=== PATIENT | female | born 1970 | race African-American/Black ===

== ENCOUNTER → 2016-07-26 | Outpatient (CLI) | payer OTHER ==
[2016-07-08 10:14] VITALS: BP 146/92
[~2016-07-26] MED LIST: ALBU2.5V13 IH; AMLO10TA4 PO; ARIP5TAB6 PO; ASPI-482 PO; AZIT1PAC PO; Albuterol Sulfate NEB; BENZ100C PO; BUDE10.2 IH; CEFP200T PO; CETI10TA22 PO; CYCL5TAB PO; DOCU-27 PO; Doxycycline Hyclate PO; ESTR1.25 PO; FERR-26 PO; FLUC100T4 PO; FLUT1DIS3 INH; FLUT9.9S NS; HYDR-2762 PO; HYDR-2869 PO; HYDR12.553 PO; Hydralazine Hcl PO; IBUP-1060 PO; INSU100I13 SQ; Ipratropium/Albuterol Sulfate NEB; LEVO500T38 PO; LISI20TA PO; LORA10TA3 PO; METF500T PO; METF500T4 PO; MULT-208 PO; OMEP20TA PO; OXYC-323 PO; POTA20TA4 PO; PRED-220 PO; PRED20TA PO; PRED50TA PO; PROAIR HFA8.5 GM INH; PROAIR RESPICL90 MCG IH; SIMV40TA3 PO; VALS40TA2 PO
--- NOTE | 2016-07-26 13:59 | RAD ---
DATE: 07/26/2016. EXAM: DIGITAL SCREEN BILAT W/CAD HISTORY: Baseline. COMPARISON: None This study was interpreted with the benefit of Computerized Aided Detection (CAD). FINDINGS: Moderate fibroglandular tissue is noted bilaterally. No dominant mass or malignant appearing microcalcifications are seen. The axillae are unremarkable. There are benign calcifications bilaterally. IMPRESSION: No mammographic features suspicious for malignancy. BI-RADS CATEGORY: 2 BENIGN FINDING(S) RECOMMENDED FOLLOW-UP: 12M 12 MONTH FOLLOW-UP PQRS compliance statement: Patient information was entered into a reminder system with a target due date for the next mammogram. Mammography is a sensitive method for finding small breast cancers, but it does not detect them all and is not a substitute for careful clinical examination. A negative mammogram does not negate a clinically suspicious finding and should not result in delay in biopsying a clinically suspicious abnormality. "Our facility is accredited by the [employer] Mammography Program."
== END | disposition home or self-care (01) ==
LOC: MAMMO 12:40
PROVIDERS: ATTEND Family Medicine
DX: Z12.31 Encounter for screening mammogram for malignant neoplasm of breast (principal)
CPT/HCPCS: G0202; 77067

== ENCOUNTER 2016-10-06 10:36 | Emergency (ER) | payer OTHER ==
[~2016-10-06] VITALS: Ht 162.6 cm; Wt 72.6 kg
[~2016-10-06 10:36] MED LIST changes: -ALBU2.5V13 IH; +ALBU2.5V14 IH
[2016-10-06] MEDS ORDERED: IPRATRPIUM/ALBUTEROL 0.5/2.5MG 3 ML NEBU. NEB ONE (11:30)
--- NOTE | 2016-10-06 11:32 | PHYS DOC ---
Past Medical History Past Medical History: Asthma, COPD, Diabetes-Type II, Hypertension, Pneumonia, Other Additional Past Medical Histor: Lupus Past Surgical History: Hysterectomy, Other Additional Past Surgical Histo: chest tube for pneumonia Alcohol Use: Occasionally Drug Use: None Adult General Chief Complaint Chief Complaint: SHORTNESS OF BREATH HPI HPI Patient is a 46 year old female who presents with sore throat , wheezing, fevers chills for the last 3 days. She states she has a history of asthma and feels like she is wheezing somewhat. She also states that she discuss with her but she is able to eat and drink without any difficulty. She has felt that she had fevers and chills as well. Review of Systems Review of Systems Constitutional: Positive for fevers and chills Eyes: Denies change in visual acuity, redness, or eye pain [] HENT: Denies nasal congestion, positive for sore throat [] Respiratory: Denies any shortness of breath. Positive for wheezing Cardiovascular: No additional information not addressed in HPI [] GI: Denies abdominal pain, nausea, vomiting, bloody stools or diarrhea [] : Denies dysuria or hematuria [] Musculoskeletal: Denies back pain or joint pain [] Integument: Denies rash or skin lesions [] Neurologic: Denies headache, focal weakness or sensory changes [] Endocrine: Denies polyuria or polydipsia [] Current Medications Current Medications Current Medications Medications (Trade) Dose Ordered Sig/Nona Start Time Stop Time Status Last Admin Dose Admin Albuterol/ Ipratropium (Duoneb) 3 ml 1X ONCE 10/06/16 11:30 10/06/16 11:31 DC 10/06/16 11:57 3 ML Allergies Allergies Allergies Coded Allergies Type Severity Reaction Last Updated Verified lisinopril Allergy Intermediate COUGH 04/21/16 Yes I S O L A T I O N *CONTACT* Allergy Unknown 04/21/16 Yes Physical Exam Physical Exam Constitutional: Well developed, well nourished, no acute distress, non-toxic appearance. [] HENT: Normocephalic, atraumatic, bilateral external ears normal, oropharynx moist, no oral exudates, nose normal. [] Eyes: PERRLA, EOMI, conjunctiva normal, no discharge. [] Neck: Normal range of motion, no tenderness, supple, no stridor. [] Cardiovascular:Heart rate regular rhythm, no murmur [] Lungs & Thorax: Good air exchange bilaterally, mild expiratory wheezes Abdomen: Bowel sounds normal, soft, no tenderness, no masses, no pulsatile masses. [] Skin: Warm, dry, no erythema, no rash. [] Back: No tenderness, no CVA tenderness. [] Extremities: No tenderness, no cyanosis, no clubbing, ROM intact, no edema. [] Neurologic: Alert and oriented X 3, normal motor function, normal sensory function, no focal deficits noted. [] Psychologic: Affect normal, judgement normal, mood normal. [] Current Patient Data Vital Signs Vital Signs Date Time Temp Pulse Resp B/P Pulse Ox O2 Delivery O2 Flow Rate FiO2 10/06/16 12:06 104 193/116 100 Room Air 10/06/16 11:10 98.3 20 98.3 Lab Values Laboratory Tests Test 10/06/16 11:43 10/06/16 12:00 Influenza Type A Antigen Negative (NEGATIVE) Influenza Type B Antigen Negative (NEGATIVE) Group A Streptococcus Rapid Negative (NEGATIVE) White Blood Count 10.9x10^3/uL (4.0-11.0) Red Blood Count 4.51x10^6/uL (3.50-5.40) Hemoglobin 13.6g/dL (12.0-15.5) Hematocrit 40.4% (36.0-47.0) Mean Corpuscular Volume 90fL (79-100) Mean Corpuscular Hemoglobin 30pg (25-35) Mean Corpuscular Hemoglobin Concent 34g/dL (31-37) Red Cell Distribution Width 14.7% (11.5-14.5) H Platelet Count 540x10^3/uL (140-400) H Neutrophils (%) (Auto) 74% (31-73) H Lymphocytes (%) (Auto) 18% (24-48) L Monocytes (%) (Auto) 5% (0-9) Eosinophils (%) (Auto) 3% (0-3) Basophils (%) (Auto) 1% (0-3) Neutrophils # (Auto) 8.1x10^3uL (1.8-7.7) H Lymphocytes # (Auto) 2.0x10^3/uL (1.0-4.8) Monocytes # (Auto) 0.5x10^3/uL (0.0-1.1) Eosinophils # (Auto) 0.3x10^3/uL (0.0-0.7) Basophils # (Auto) 0.1x10^3/uL (0.0-0.2) Sodium Level 137mmol/L (136-145) Potassium Level 4.0mmol/L (3.5-5.1) Chloride Level 104mmol/L (98-107) Carbon Dioxide Level 23mmol/L (21-32) Anion Gap 10 (6-14) Blood Urea Nitrogen 9mg/dL (7-20) Creatinine 1.0mg/dL (0.6-1.0) Estimated GFR (Cockcroft-Gault) 72.5 BUN/Creatinine Ratio 9 (6-20) Glucose Level 98mg/dL (70-99) Calcium Level 9.8mg/dL (8.5-10.1) Total Bilirubin 0.5mg/dL (0.2-1.0) Aspartate Amino Transferase (AST) 34U/L (15-37) Alanine Aminotransferase (ALT) 29U/L (14-59) Alkaline Phosphatase 95U/L (46-116) Total Protein 8.3g/dL (6.4-8.2) H Albumin 3.2g/dL (3.4-5.0) L Albumin/Globulin Ratio 0.6 (1.0-1.7) L Laboratory Tests 10/06/16 12:00 Laboratory Tests 10/06/16 12:00 EKG EKG [] Radiology/Procedures Radiology/Procedures [facility] [address] [place], [place] [id number] IMAGING REPORT Signed PATIENT: CALDERON YAP ACCOUNT: [id number] : 1970 LOCATION: ER AGE: 46 SEX: F EXAM STATUS: REG ER ORD. PHYSICIAN: SUZAN MACK MD REASON: cough PROCEDURE: CHEST PA & LATERAL Chest, 2 views, 10/06/2016: History: Cough and cold symptoms Comparison is made to a study from 07/06/2016. The heart size and pulmonary vascularity are normal. No pulmonary infiltrates are seen. Unchanged blunting of the right lateral costophrenic angle is compatible with scarring. The posterior costophrenic angles are sharp without evidence of pleural fluid. Degenerative changes are present at both shoulders. IMPRESSION: No acute cardiopulmonary abnormality is detected. DICTATED and SIGNED BY: GARRETT CHOW MD DATE: 10/06/16 1149 CC: ALLIE MARES MD; SUZAN MACK MD ~ Impressions: Viral pharyngitis Course & Med Decision Making Course & Med Decision Making Pertinent Labs and Imaging studies reviewed. (See chart for details) Strep throat, influenza, chest x-ray and labs are nonacute. Patient being discharged home with return precautions. She is agreeable plan is in stable condition at this time. She can use Claritin or Myrna for sinus congestion. Dragon Disclaimer Dragon Disclaimer This electronic medical record was generated, in whole or in part, using a voice recognition dictation system. Departure Departure Impression: Primary Impression: Sore throat (viral) Disposition: 01 HOME, SELF-CARE Condition: STABLE Referrals: ALLIE MARES MD (PCP) Patient Instructions: Viral and Bacterial Pharyngitis, [id number] Additional Instructions: Chest x-ray, labs, influenza and strep throat all negative. Your being discharged home. You try [id number] Claritin or Myrna to help with your sinus congestion and sore throat. SUZAN MACK MD Oct 06, 2016 11:32
--- NOTE | 2016-10-06 11:52 | RAD ---
Chest, 2 views, 10/06/2016: History: Cough and cold symptoms Comparison is made to a study from 07/06/2016. The heart size and pulmonary vascularity are normal. No pulmonary infiltrates are seen. Unchanged blunting of the right lateral costophrenic angle is compatible with scarring. The posterior costophrenic angles are sharp without evidence of pleural fluid. Degenerative changes are present at both shoulders. IMPRESSION: No acute cardiopulmonary abnormality is detected.
[2016-10-06 12:12] LABS: BASO # 0.1 x10^3/uL (0.0-0.2); BASO % 1 % (0-3); EOS % 3 % (0-3); HEMATOCRIT 40.4 % (36.0-47.0); HEMOGLOBIN 13.6 g/dL (12.0-15.5); LYMPH % 18 % (24-48); MEAN CORPUSCULAR HEMOGLOBIN 30 pg (25-35); MEAN CORPUSCULAR HGB CONC 34 g/dL (31-37); MEAN CORPUSCULAR VOLUME 90 fL (79-100); MONO % 5 % (0-9); NEUT % 74 % (31-73); PLATELET COUNT 540 x10^3/uL (140-400); RED BLOOD COUNT 4.51 x10^6/uL (3.50-5.40); RED CELL DISTRIBUTION WIDTH 14.7 % (11.5-14.5); WHITE BLOOD COUNT 10.9 x10^3/uL (4.0-11.0)
[2016-10-06 12:13] LABS: NEGATIVE OBC STREP NEG; POSITIVE OBC STREP POS
[2016-10-06 12:27] LABS: CALCIUM 9.8 mg/dL (8.5-10.1); GFR 72.5
[2016-10-06 12:29] LABS: ALBUMIN 3.2 g/dL (3.4-5.0); ALBUMIN/GLOBULIN RATIO 0.6 (1.0-1.7); TOTAL BILIRUBIN 0.5 mg/dL (0.2-1.0); TOTAL PROTEIN 8.3 g/dL (6.4-8.2)
[2016-10-06 12:36] VITALS: BP 169/108
[2016-10-06 12:49] LABS: OBC FLU VALID
== END 2016-10-06 13:18 | disposition home or self-care (01) ==
LOC: ER 10:36
DX: J02.8 Acute pharyngitis due to other specified organisms (principal); B97.89 Other viral agents as the cause of diseases classified elsewhere; J45.909 Unspecified asthma, uncomplicated; J44.9 Chronic obstructive pulmonary disease, unspecified; E11.9 Type 2 diabetes mellitus without complications; I10 Essential (primary) hypertension; L93.0 Discoid lupus erythematosus; Z88.8 Allergy status to other drugs, medicaments and biological substances; Z91.041 Radiographic dye allergy status; Z87.01 Personal history of pneumonia (recurrent)
CPT/HCPCS: 36415; 71020; 80053; 85027; 87070; 87804; 87880; 94640; 99285; J7620

== ENCOUNTER → 2016-10-11 | Outpatient (CLI) | payer OTHER ==
[2016-10-06 12:36] VITALS: BP 169/108
--- NOTE | 2016-10-11 13:39 | RAD ---
CT scan of the head without contrast 10/11/2016 Clinical history: Intractable migraine headaches since 1989. Technique: Unenhanced, contiguous, 5 mm axial sections were obtained through the head. One or more of the following individualized dose reduction techniques were utilized for this study: 1. Automated exposure control. 2. Adjustment of the mA and/or kV according to patient size. 3. Use of iterative reconstruction technique. Findings: Comparison study is dated 07/14/2012. The ventricles and sulci are within normal limits in size and configuration. No area of abnormal attenuation is involving the brain parenchyma. No extra-axial fluid collection is seen. No skull fracture is noted. Impression: Negative study.
== END | disposition home or self-care (01) ==
LOC: CT 13:11
PROVIDERS: ATTEND Family Medicine
DX: G43.011 Migraine without aura, intractable, with status migrainosus (principal)
CPT/HCPCS: 70450

== ENCOUNTER 2016-11-23 08:58 | Emergency (ER) | payer OTHER ==
[~2016-11-23] VITALS: Ht 162.6 cm; Wt 76.2 kg
--- NOTE | 2016-11-23 09:43 | PHYS DOC ---
Past Medical History Past Medical History: Asthma, COPD, Diabetes-Type II, Hypertension, Pneumonia, Other Additional Past Medical Histor: Lupus Past Surgical History: Hysterectomy, Other Additional Past Surgical Histo: chest tube for pneumonia Alcohol Use: Occasionally Drug Use: None Adult General Chief Complaint Chief Complaint: COUGH HPI HPI Patient is a 46 year old female presents to the emergency department with a history of productive cough yellow in color for the last 2 weeks. She states she has had fevers on and off. Patient has HTN here in the ED she state she just had her BP medication changed. She denies taking other medication for the cough. She states she has also had back pain for the same length of time in which she has been using Ibuprofen 250 mg x 3 tablets without relief. Review of Systems Review of Systems Constitutional: Denies fever or chills [] Eyes: Denies change in visual acuity, redness, or eye pain [] HENT: Denies nasal congestion or sore throat [] Respiratory: cough denies shortness of breath [] Cardiovascular: No additional information not addressed in HPI [] GI: Denies abdominal pain, nausea, vomiting, bloody stools or diarrhea [] : Denies dysuria or hematuria [] Musculoskeletal: back pain denies joint pain [] Integument: Denies rash or skin lesions [] Neurologic: Denies headache, focal weakness or sensory changes [] Endocrine: Denies polyuria or polydipsia [] Allergies Allergies Allergies Coded Allergies Type Severity Reaction Last Updated Verified lisinopril Allergy Intermediate COUGH 04/21/16 Yes I S O L A T I O N *CONTACT* Allergy Unknown 04/21/16 Yes Physical Exam Physical Exam Constitutional: Well developed, well nourished, no acute distress, non-toxic appearance. [] HENT: Normocephalic, atraumatic, bilateral external ears normal, oropharynx moist, no oral exudates, nose normal. [] Eyes: PERRLA, EOMI, conjunctiva normal, no discharge. [] Neck: Normal range of motion, no tenderness, supple, no stridor. [] Cardiovascular:Heart rate regular rhythm, no murmur [] Lungs & Thorax: Bilateral breath sounds clear to auscultation [] Skin: Warm, dry, no erythema, no rash. [] Back: No tenderness, Extremities: No tenderness, no cyanosis, no clubbing, ROM intact, no edema. [] Neurologic: Alert and oriented X 3, normal motor function, normal sensory function, no focal deficits noted. [] Psychologic: Affect normal, judgement normal, mood normal. [] Current Patient Data Vital Signs Vital Signs Date Time Temp Pulse Resp B/P (MAP) Pulse Ox O2 Delivery O2 Flow Rate FiO2 11/23/16 09:13 97.7 89 18 187/104 (131) 99 Room Air 97.7 EKG EKG [] Radiology/Procedures Radiology/Procedures [][facility] [address] [place] [address] IMAGING REPORT Signed PATIENT: CALDERON YAP ACCOUNT: [id number] : 1970 LOCATION: ER AGE: 46 SEX: F EXAM STATUS: PRE ER ORD. PHYSICIAN: NATIVIDAD CARPENTER APRN REASON: cough, congestion, productive cough PROCEDURE: CHEST PA & LATERAL Indication productive cough for 2 weeks. PA and lateral views of the chest were obtained and are compared to an exam 10/06/2016. The heart, pulmonary vessels and mediastinum appear normal. The lungs are clear of acute infiltrates. There is no pleural fluid or pneumothorax. There are degenerative changes about both shoulders. IMPRESSION: No acute finding apparent in the chest DICTATED and SIGNED BY: JESSICA ARCE MD DATE: 11/23/16 0937 CC: ALLIE MARES MD; NATIVIDAD CARPENTER APRN ~ Course & Med Decision Making Course & Med Decision Making Pertinent Labs and Imaging studies reviewed. (See chart for details) CXR negative. Patient will be placed on Augmentin for URI. Patient was encouraged to use Ibuprofen for pain and discomfort with warm moist packs. Patient was encouraged to monitor BP and followup with PCP for blood pressure control. Patient denies chest pain, SOA or difficulty breathing, denies headache , blurred vision. Patient was provided with signs and symptoms to return to emergency department. Patient agrees with discharge instructions treatment regimen and followup recommendations. [] Dragon Disclaimer Dragon Disclaimer This electronic medical record was generated, in whole or in part, using a voice recognition dictation system. Departure Departure Impression: Primary Impression: URI (upper respiratory infection) Disposition: HOME, SELF-CARE Condition: STABLE Referrals: ALLIE MARES MD (PCP) Patient Instructions: Upper Respiratory Infection, Adult, [id number] Additional Instructions: Activity as tolerated Medication as prescribed Ibuprofen for pain and discomfort Warm moist packs to the back area Monitor your BP and followup with your primary care provider Followup with your primary care provider in 3-5 days Return to emergency department as needed for signs and symptoms that become worse. Scripts Amoxicillin/Potassium Clav (AUGMENTIN 875-125 TABLET) 1 Each Tablet 1 TAB PO BID, #20 TAB Prov: NATIVIDAD CARPENTER APRN 11/23/16 NATIVIDAD CARPENTER APRN November 23, 2016 09:43
[2016-11-23] MEDS ORDERED: AMOX1TAB61 PO (09:57)
[2016-11-23 10:00] VITALS: BP 173/105
== END 2016-11-23 10:15 | disposition home or self-care (01) ==
LOC: ER 08:58
DX: J06.9 Acute upper respiratory infection, unspecified (principal); M54.9 Dorsalgia, unspecified; J44.9 Chronic obstructive pulmonary disease, unspecified; E11.9 Type 2 diabetes mellitus without complications; I10 Essential (primary) hypertension; M32.9 Systemic lupus erythematosus, unspecified; Z87.01 Personal history of pneumonia (recurrent); Z90.710 Acquired absence of both cervix and uterus; Z88.8 Allergy status to other drugs, medicaments and biological substances; Z91.041 Radiographic dye allergy status
CPT/HCPCS: 71020; 99284-25

== ENCOUNTER 2017-01-09 15:05 | Observation (INO) | payer OTHER ==
[~2017-01-09] VITALS: Ht 162.6 cm; Wt 77.2 kg
[~2017-01-09 15:05] MED LIST changes: +AMOX1TAB61 PO; +ARIP5TAB13 PO; -ARIP5TAB6 PO; +DOCU-109 PO; -DOCU-27 PO; -LEVO500T38 PO; +LEVO500T59 PO; -OMEP20TA PO; +OMEP20TA8 PO
--- NOTE | 2017-01-09 15:26 | PHYS DOC ---
Past Medical History Past Medical History: Asthma, COPD, Diabetes-Type II, Hypertension, Pneumonia, Other Additional Past Medical Histor: Lupus Past Surgical History: Hysterectomy, Other Additional Past Surgical Histo: chest tube for pneumonia Smoking: Cigarettes Alcohol Use: Occasionally Drug Use: None Adult General Chief Complaint Chief Complaint: CHEST PAIN HPI HPI Patient is a 46 year old male who presents with 2 hour history of chest discomfort at rest and sharp in nature worse with breathing and coughing with a cough some slight wheezing; pain does not radiate to the neck or arm; nonexertional. No fever nausea vomiting diarrhea dysuria frequency or flank pain. Reports history of lupus, type 2 diabetes, and asthma. Smoking history. Not on steroids. Not on oxygen. Several years ago had a partial lung resection in the right lower lung secondary to complication of pneumonia with "drainage of fluid ". Review of Systems Review of Systems Constitutional: Denies fever or chills [] Eyes: Denies change in visual acuity, redness, or eye pain [] HENT: Denies nasal congestion or sore throat [] Respiratory: Denies cough or shortness of breath [] Cardiovascular: No additional information not addressed in HPI [] GI: Denies abdominal pain, nausea, vomiting, bloody stools or diarrhea [] : Denies dysuria or hematuria [] Musculoskeletal: Denies back pain or joint pain [] Integument: Denies rash or skin lesions [] Neurologic: Denies headache, focal weakness or sensory changes [] Endocrine: Denies polyuria or polydipsia [ All review systems are negative except as mentioned in the history present illness] Current Medications Current Medications Current Medications Medications (Trade) Dose Ordered Sig/Nona Start Time Stop Time Status Last Admin Dose Admin Albuterol Sulfate (Ventolin Neb Soln) 2.5 mg 1X ONCE 01/09/17 15:30 01/09/17 15:31 DC 01/09/17 15:29 2.5 MG Aspirin (Children'S Aspirin) 324 mg 1X ONCE 01/09/17 17:15 01/09/17 17:16 DC 01/09/17 17:20 324 MG Morphine Sulfate 4 mg PRN Q2HR PRN 01/09/17 17:30 01/10/17 17:29 UNV Nitroglycerin (Nitro-Bid Oint) 1 inch 1X ONCE 01/09/17 17:15 01/09/17 17:16 DC 01/09/17 17:21 1 INCH Nitroglycerin (Nitrostat) 0.4 mg PRN Q5MIN PRN 01/09/17 17:15 01/09/17 17:23 0.4 MG Ondansetron HCl (Zofran) 4 mg PRN Q8HRS PRN 01/09/17 17:30 01/10/17 17:29 UNV Allergies Allergies Allergies Coded Allergies Type Severity Reaction Last Updated Verified lisinopril Allergy Intermediate COUGH 04/21/16 Yes I S O L A T I O N *CONTACT* Allergy Unknown 04/21/16 Yes Physical Exam Physical Exam Constitutional: Well developed, well nourished, no acute distress, non-toxic appearance. [] HENT: Normocephalic, atraumatic, bilateral external ears normal, oropharynx moist, no oral exudates, nose normal. [] Eyes: PERRLA, EOMI, conjunctiva normal, no discharge. [] Neck: Normal range of motion, no tenderness, supple, no stridor. [] Cardiovascular:Heart rate regular rhythm, no murmur, gallops or rubs. [] Lungs & Thorax: Bilateral breath sounds equal with some faint wheezing no major distress [] Abdomen: Bowel sounds normal, soft, no tenderness, no masses, no pulsatile masses. [] Skin: Warm, dry, no erythema, no rash. [] Back: No tenderness, no CVA tenderness. Well-healed scar overlying the right lower lung posteriorly.[] Extremities: No tenderness, no cyanosis, no clubbing, ROM intact, no edema. [] Neurologic: Alert and oriented X 3, normal motor function, normal sensory function, no focal deficits noted. [] Psychologic: Affect normal, judgement normal, mood normal. [] Current Patient Data Vital Signs Vital Signs Date Time Temp Pulse Resp B/P (MAP) Pulse Ox O2 Delivery O2 Flow Rate FiO2 01/09/17 17:23 92 214/106 01/09/17 15:29 Room Air 01/09/17 15:19 98.9 18 97 98.9 Lab Values Laboratory Tests Test 01/09/17 16:15 White Blood Count 9.1 x10^3/uL (4.0-11.0) Red Blood Count 4.35 x10^6/uL (3.50-5.40) Hemoglobin 13.2 g/dL (12.0-15.5) Hematocrit 38.9 % (36.0-47.0) Mean Corpuscular Volume 90 fL (79-100) Mean Corpuscular Hemoglobin 31 pg (25-35) Mean Corpuscular Hemoglobin Concent 34 g/dL (31-37) Red Cell Distribution Width 14.2 % (11.5-14.5) Platelet Count 456 x10^3/uL (140-400) H Neutrophils (%) (Auto) 64 % (31-73) Lymphocytes (%) (Auto) 23 % (24-48) L Monocytes (%) (Auto) 7 % (0-9) Eosinophils (%) (Auto) 5 % (0-3) H Basophils (%) (Auto) 1 % (0-3) Neutrophils # (Auto) 5.9 x10^3uL (1.8-7.7) Lymphocytes # (Auto) 2.0 x10^3/uL (1.0-4.8) Monocytes # (Auto) 0.6 x10^3/uL (0.0-1.1) Eosinophils # (Auto) 0.4 x10^3/uL (0.0-0.7) Basophils # (Auto) 0.1 x10^3/uL (0.0-0.2) Sodium Level 143 mmol/L (136-145) Potassium Level 3.4 mmol/L (3.5-5.1) L Chloride Level 105 mmol/L (98-107) Carbon Dioxide Level 27 mmol/L (21-32) Anion Gap 11 (6-14) Blood Urea Nitrogen 10 mg/dL (7-20) Creatinine 1.0 mg/dL (0.6-1.0) Estimated GFR (Cockcroft-Gault) 72.5 BUN/Creatinine Ratio 10 (6-20) Glucose Level 94 mg/dL (70-99) Calcium Level 8.7 mg/dL (8.5-10.1) Total Bilirubin 0.3 mg/dL (0.2-1.0) Aspartate Amino Transferase (AST) 30 U/L (15-37) Alanine Aminotransferase (ALT) 29 U/L (14-59) Alkaline Phosphatase 81 U/L (46-116) Troponin I Quantitative < 0.017 ng/mL (0.000-0.055) Total Protein 8.2 g/dL (6.4-8.2) Albumin 3.6 g/dL (3.4-5.0) Albumin/Globulin Ratio 0.8 (1.0-1.7) L Laboratory Tests 01/09/17 16:15 Laboratory Tests 01/09/17 16:15 EKG EKG EKG normal sinus rhythm rate of 94 QTC normal no STEMI my interpretation. [] Radiology/Procedures Radiology/Procedures Chest x-ray [] Course & Med Decision Making Course & Med Decision Making Pertinent Labs and Imaging studies reviewed. (See chart for details) Seems like this is likely to be more pulmonary we will check a troponin CBC comp metabolic and EKG chest x-ray and give a breathing treatment and reevaluate. [EKG and labs and chest x-ray were unremarkable. Patient still having some left sided substernal chest discomfort was not improved with breathing treatment. I do not suspect pulmonary embolism or dissection at this time. Patient has a normal pulse rate, 90 sat, and no leg pain or swelling. Patient was given aspirin nitroglycerin. We will admit for serial EKGs and enzymes and set up for stress test. I discussed the case with Dr. Ferrer who is covering for Dr. Mares and accepts the admission for telemetry observation] Dragon Disclaimer Dragon Disclaimer This electronic medical record was generated, in whole or in part, using a voice recognition dictation system. Departure Departure Impression: Primary Impression: Chest pain Disposition: ADMITTED INPATIENT Admitting Physician: Richmond Ferrer Condition: STABLE Referrals: ALLEI MARES MD (PCP) EDILMA SOLIMAN MD Jan 09, 2017 15:26
[2017-01-09] MEDS ORDERED: ALBUTEROL SULFATE 2.5 MG/3 ML NEBU. NEB ONE (15:30)
--- NOTE | 2017-01-09 15:40 | RAD ---
Single view of the Chest 01/09/2017 5:18 PM Indication: cough chest pain Comparison: Chest radiograph November 23, 2016 Findings: There is blunting of right costophrenic angle which could represent scarring, trace effusion, or atelectasis. No pneumothorax is identified. Heart size is normal. No focal infiltrate is seen. Severe degenerative changes involving the bilateral shoulders are noted. Acute osseous changes not identified. Impression: 1.Blunting of the right costophrenic angle which may represent scarring or trace effusion, or atelectasis 2. Similar degenerative changes of the bilateral shoulders.
--- NOTE | 2017-01-09 15:49 | EKG ---
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
[2017-01-09 16:25] LABS: BASO # 0.1 x10^3/uL (0.0-0.2); BASO % 1 % (0-3); EOS % 5 % (0-3); HEMATOCRIT 38.9 % (36.0-47.0); HEMOGLOBIN 13.2 g/dL (12.0-15.5); LYMPH % 23 % (24-48); MEAN CORPUSCULAR HEMOGLOBIN 31 pg (25-35); MEAN CORPUSCULAR HGB CONC 34 g/dL (31-37); MEAN CORPUSCULAR VOLUME 90 fL (79-100); MONO % 7 % (0-9); NEUT % 64 % (31-73); PLATELET COUNT 456 x10^3/uL (140-400); RED BLOOD COUNT 4.35 x10^6/uL (3.50-5.40); RED CELL DISTRIBUTION WIDTH 14.2 % (11.5-14.5); WHITE BLOOD COUNT 9.1 x10^3/uL (4.0-11.0)
[2017-01-09 16:46] LABS: ALBUMIN 3.6 g/dL (3.4-5.0); ALBUMIN/GLOBULIN RATIO 0.8 (1.0-1.7); CALCIUM 8.7 mg/dL (8.5-10.1); GFR 72.5; POTASSIUM 3.4 mmol/L (3.5-5.1); TOTAL BILIRUBIN 0.3 mg/dL (0.2-1.0); TOTAL PROTEIN 8.2 g/dL (6.4-8.2)
[2017-01-09] MEDS ORDERED: NITROGLYCERIN OINT 1 GM PACKET. TP ONE (17:15)
[2017-01-09] MEDS ORDERED: ASPIRIN CHEWABLE 81 MG TABLET. PO ONE (17:15)
[2017-01-09] MEDS: NITROGLYCERIN SUBLINGUAL 0.4 MG BOTTLE OF 25. SL PRN ×3 (17:23→18:11)
[2017-01-09] MEDS ORDERED: MORPHINE SULFATE 4 MG/ML DISP.SYRIN. IV PRN (17:30)
[2017-01-09] MEDS ORDERED: ONDANSETRON PF 4 MG/2 ML VIAL. IV PRN (17:30)
[2017-01-09] MEDS ORDERED: IBUPROFEN 800 MG TABLET. PO PRN (21:30)
[2017-01-09] MEDS ORDERED: NON FORMULARY ITEM (Albuterol Sulfate (Proair Hfa Inhaler) 2 PUFF) INH PRN (21:30)
[2017-01-09] MEDS ORDERED: ARIPiprazole 5 MG TABLET PO PRN (21:30)
[2017-01-09] MEDS ORDERED: ALBUTEROL SULFATE 2.5 MG/3 ML NEBU. NEB PRN (21:45)
[2017-01-09] MEDS ORDERED: SIMVASTATIN 40 MG TABLET. PO SCH (22:00)
[2017-01-09] MEDS: CYCLOBENZAPRINE 10 MG TABLET. PO SCH (22:33)
[2017-01-09] MEDS: HYDROcodone/APAP 7.5/325MG 1 TAB TABLET PO PRN (22:34)
[2017-01-09 23:00] VITALS: BP 186/108
--- NOTE | 2017-01-10 01:35 | ACF ---
Admission Forms Criteria CARDIOLOGY GRG Clinical Indications for Admission to Inpatient Care ( Place 'X' for any and all applicable criteria): Hospital admission is needed for appropriate care of the patient because of ANY ONE of the following (1): [ ] I. Hemodynamic instability as indicated by ALL of the following (1)(2)(3) (4)(5) [ ]a) Vital signs or other findings not as expected for chronic patient condition or baseline [ ]b) Instability indicated by ANY ONE of the following: [ ]i) Hypotension [ ]ii) Symptomatic Tachycardia unresponsive to treatment ( e.g., analgesia, fluids, sedation as indicated) [ ]iii) Inadequate perfusion indicated by ANY ONE of the following: [ ] 1) Lactic acidosis (> 2 mmol/L) [ ] 2) New abnormal capillary refill (> 3 seconds) [ ] 3) Reduced urine output [ ] 4) New altered mental status [ ]iv) Orthostatic vital sign changes unresponsive to treatment (e.g., fluids) [ ]v) IV inotropic or vasopressor medication required to maintain adequate blood pressure or perfusion [ ] II. Severe heart failure as indicated by ANY ONE of the following(17)(18) [ ]a) Respiratory distress [ ]b) Hypotension [ ]c) Anasarca (refractory to outpatient therapy) [ ]d) Cardiac arrhythmias of immediate concern [ ]e) Myocardial ischemia [ ] III. Cardiac arrhythmias or findings of immediate concern indicated by ANY ONE of the following (19)(20): [ ] a) Heart rhythms that are inherently dangerous or unstable indicated by ANY ONE of the following (21)(22)(23): [ ] i) Resuscitated ventricular fibrillation or cardiac arrest [ ] ii) Ventricular escape rhythm [ ] iii) Sustained ventricular tachycardia (30 seconds or more of ventricular rhythm at greater than 100 beats per minute) [ ] iv) Nonsustained ventricular tachycardia and ANY ONE of the following: [ ] 1) Suspected cardiac ischemia as cause or consequence of ventricular tachycardia [ ] 2) In setting of acute myocarditis [ ] b) Unstable cardiac conduction defects indicated by ANY ONE of the following(23)(24)(25) [ ] i) Type II second-degree atrioventricular block [ ]ii) Third-degree atrioventricular block [ ]iii) New-onset left bundle branch block with suspected myocardial ischemia [ ]c) Any heart rhythm and ANY ONE of the following (21)(22)(26)(27) (28) [ ] i) Continuous long-term ECG monitoring needed (e.g., initiation of drug requiring monitoring for more than 24 hours) [ ] ii) Patient has automatic implanted cardioverter defibrillator that is repeatedly firing, malfunctioning, or in need of immediate adjustment of settings beyond the scope of ambulatory or observation care [ ]d) Heart rhythms of concern due to ANY ONE of the following: [ ] i) Hypotension [ ] ii) Respiratory distress [ ] iii) Association with other significant symptoms (e.g., bradycardia with syncope or ongoing dizziness, supraventricular tachycardia with chest pain (14)(15)(17) [ ] IV. Monitoring for cardiac contusion beyond the scope of observation care needed [A](30)(31)(32) [ ] V. Surgical or device complication (e.g., valve replacement complication , pacemaker dysfunction) (35)(41)(44)(45)(46) [ ] . Inpatient palliative care needed. [B](49) Also use Inpatient Palliative Care Criteria [ ] VII. Nonbacterial thrombotic (marantic) endocarditis (36)(43)(47)(48) [X] VIII. Cardiology condition, symptom, or finding for which emergency and observation care has failed or are not considered appropriate. [ ] IX. Acute valvular disease requiring inpatient as indicated by ANY ONE of the following (41) [ ]a) Acute valvular regurgitation (42) [ ]b) Noninfectious valvulitis (43) [ ]c) Obstructive valve thrombosis [ ]d) Paravalvular leak [ ]e) Other significant valvular disorder remaining after emergency or observation level of care (as appropriate) [ ]X. Pericardial disease requiring inpatient treatment as indicated by ANY ONE of the following (33)(34)(35)(36)(37) [ ]a) Suspected tamponade (38)(39)(40) [ ]b) Hemopericardium [ ]c) Other significant pericardial disorder remaining after emergency or observation level of care (as appropriate) [ ] XI. Cardiac ischemia beyond scope of emergency and observation care. [ ] XII. Hypertension requiring inpatient treatment as indicated by ANY ONE of the following (6)(7)(8) [ ]a) SBP greater than 220 mm Hg or DBP greater than 120 mmHg despite treatment [ ]b) SBP greater than 140 mm Hg or DBP greater than 100 mm Hg with evidence of acute end organ damage as indicated by ANY ONE of the following [ ] i) Encephalopathy [ ] ii) Acute renal failure as indicated by new onset of ANY ONE of the following (9)(10)(11)(12)(13) [ ]1) 3-fold rise in serum creatinine from baseline [ ]2) Serum creatinine greater than 4 mg/dL ( 354 micromoles/L) with acute rise greater than 0.5 mg/dL (44.2 micromoles/L) [ ]3) Reduction of more than 75% in estimated glomerular filtration rate from baseline [ ]4) Estimated glomerular filtration rate less than 35 mL/min/1.73m2 (0.59 mL/sec/1.73m2) in child up to 18 years of age [ ]5) Cessation of urine output indicated by ALL of the following [ ]A. Adequate volume status [ ]B. Inadequate urine output as indicated by ANY ONE of the following [ ]a. Urine output less than 0.3 mL/kg/hr for 24 hours [ ]b. Anuria (urine output less than 0.1 mL/kg/hr) for 12 hours [ ] iii) Aortic dissection [ ] iv) Myocardial Ischemia [ ] v) Left ventricular heart failure [ ]vi) Retinal Hemorrhage [ ]vii) Other significant finding [ ]c) Hypertension in child requiring inpatient treatment as indicated by ALL of the following(14)(15)(16) [ ] i) Outpatient treatment not effective, not available, or not appropriate [ ]ii) SBP or DBP greater than 95th percentile for age [ ]iii) Evidence of acute end organ damage as indicated by ANY ONE of the following [ ]1) Altered mental status [ ]2) Acute renal failure as indicated by new onset of ANY ONE of the following(9)(10)(11)(12)(13) [ ]A. 3-fold rise in serum creatinine from baseline [ ]B. Serum creatinine greater than 4 mg/dL (354 micromoles/L) with acute rise greater than 0.5 mg/dL (44.2 micromoles/L) [ ]C. Reduction of more than 75% in estimated glomerular filtration rate from baseline [ ]D. Estimated glomerular filtration rate less than 35 mL/min/1.73m2 (0.59 mL/sec/1.73m2) in child up to 18 years of age [ ]E. Cessation of urine output indicated by ALL of the following [ ]a. Adequate volume status [ ]b. Inadequate urine output as indicated by ANY ONE of the following [ ]i) Urine output less than 0.3 mL/kg/hr for 24 hours [ ]ii) Anuria ( urine output less than 0.1 mL/kg/hr) for 12 hours [ ]3) Severe headache [ ]4) Visual disturbance [ ]5) Retinal hemorrhage [ ]6) Other significant finding [ ]XIII. Complications of transplanted heart indicated by ANY ONE of the following(61): [ ]a) Acute graft rejection requiring inpatient management (eg, intravenous immunosuppression)(62)(63) [ ]b) Acute graft heart failure indicated by ANY ONE of the following(64): [ ]i) Hemodynamic instability [ ]ii) Cardiac arrhythmias of immediate concern [ ]iii) Pulmonary edema that is very severe (eg, mechanical ventilation needed, imminent or likely, need for 100% oxygen to keep oxygen saturation above 90%) [ ]iv) Pulmonary edema that is persistent as indicated by ALL of the following: [ ]1) New need for oxygen therapy to keep oxygen saturation above 90% (or increased FiO2 need from baseline) [ ]2) Has not improved sufficiently with emergency department or observation care IV diuretics or other heart failure treatments[E] [ ]v) Altered mental status that is severe or persistent [ ]vi) Increased creatinine (new on laboratory test) with reduction of more than 50% in estimated glomerular filtration rate from baseline [ ]vii) Progressively (ongoing) rising creatinine (known from past laboratory test) with reduction of more than 25% in estimated glomerular filtration rate from baseline [ ]viii) Acute renal failure [ ]ix) Acute peripheral ischemia (eg, examination shows pulseless, cool, mottled, or cyanotic extremity) [ ]x) Pulmonary artery catheter monitoring needed [ ]xi) Other sign or symptom of heart failure requiring inpatient treatment (ie, too severe or not responsive to outpatient and observation care treatment) [ ]c) Infection requiring inpatient management (eg, Hemodynamic instability, need for intravenous antimicrobial treatment)(66)(67)(68)(69)(70) [ ]d) Cardiac allograft vasculopathy requiring inpatient management ( eg evidence of cardiac ischemia)(71) [ ]e) Other complication of transplanted heart (eg, stroke, severe pulmonary hypertension, severe valvular dysfunction) requiring inpatient management(72) The original [facility] content created by [facility] has been revised. The portions of the content which have been revised are identified through the use of italic text or in bold, and [facility] has neither reviewed nor approved the modified material. All other unmodified content is copyright [facility]. Please see references footnoted in the original [facility] edition 2016 Admission Criteria Met?: Yes ADONAY TOVAR Jan 10, 2017 01:35
[2017-01-10 03:00] VITALS: BP 174/114
[2017-01-10 06:43] LABS: CALCIUM 9.7 mg/dL (8.5-10.1); CREATININE 0.8 mg/dL (0.6-1.0); GFR 93.9; POTASSIUM 3.3 mmol/L (3.5-5.1)
[2017-01-10 07:00] VITALS: BP 166/114
[2017-01-10] MEDS: ALBUTEROL SULFATE 2.5 MG/3 ML NEBU. NEB SCH ×4 (07:12→19:29)
[2017-01-10] MEDS: BUDESONIDE 0.5 MG/2 ML NEBU. NEB SCH ×2 (07:12→19:29)
[2017-01-10] MEDS ORDERED: REGADENOSON 0.4 MG/5 ML DISP.SYRIN. IV ONE (08:30)
[2017-01-10] MEDS: FLUTICASONE 50MCG/NASAL SPRAY 16GM BOTTLE. NS SCH (09:00)
[2017-01-10] MEDS ORDERED: NON FORMULARY ITEM (Fluticasone/Salmeterol (Advair 250-50 Diskus) 1 PUFF) INH SCH (09:00)
[2017-01-10] MEDS ORDERED: NON FORMULARY ITEM (Budesonide/Formoterol Fumarate (Symbicort 160-4.5 Mcg Inhaler) 2 PUFF) IH SCH (09:00)
--- NOTE | 2017-01-10 09:54 | PDOC2 ---
CARDIAC CONSULT DATE OF CONSULT Date of Consult DATE: 01/10/17 TIME: 09:43 REASON FOR CONSULT Reason for Consult: Stress test REFERRING PHYSICIAN Referring Physician: Paulino SOURCE Source: Chart review, Patient HISTORY OF PRESENT ILLNESS HISTORY OF PRESENT ILLNESS This is a 46 yo female admitted for complains of chest pain. Reports that midsternal chest pressure radiating to her back woke her at 2AM and lasted about 1 hour before getting better. No arm or jaw radiation but felt SOA. She does get diaphoretic but this is not unusual for her as she explained. No nausea but felt more wheezy. Also she has been having exertional CP. Her chest discomfort is also somewhat reproducible with palpation and also with coughing. She continues to smoke tobacco. No fever but she has been coughing more. No prior hx of arrhythmia, CAD, VTE but positive for mild TIA 2 yrs ago and lupus. Although her BP was significantly elevated upon admission she strongly noted that she is compliant with her home medications. Currently she remains wheezy and no apparent CP. PAST MEDICAL HISTORY Cardiovascular: HTN, Hyperlipidemia Pulmonary: Asthma, COPD CENTRAL NERVOUS SYSTEM: Migraine Heme/Onc: Anemia NOS, Other (thrombocytosis) Hepatobiliary: No pertinent hx Psych: Anxiety, Depression Musculoskeletal: low back pain, Osteoarthritis, Other (lupus) Rheumatologic: No pertinent hx, Gout Infectious disease: No pertinent hx ENT: Allergic Rhinitis Renal/: Chronic renal insuff (CKD2) Endocrine: Diabetes Dermatology: No pertinent hx Grav: 7 Para: 4 PAST SURGICAL HISTORY Past Surgical History: Tubal Ligation, Hysterectomy, Other (partial right lung resection) FAMILY HISTORY Family History: Diabetes (mother) SOCIAL HISTORY Smoke: <1 pack per day ALCOHOL: none Drugs: None Lives: with Family CURRENT MEDICATIONS CURRENT MEDICATIONS Current Medications Medications (Trade) Dose Ordered Sig/Nona Route PRN Reason Start Time Stop Time Status Last Admin Dose Admin Albuterol Sulfate (Ventolin Neb Soln) 2.5 mg 1X ONCE NEB 01/09/17 15:30 01/09/17 15:31 DC 01/09/17 15:29 Aspirin (Children'S Aspirin) 324 mg 1X ONCE PO 01/09/17 17:15 01/09/17 17:16 DC 01/09/17 17:20 Nitroglycerin (Nitro-Bid Oint) 1 inch 1X ONCE TP 01/09/17 17:15 7/10/17 17:16 DC 01/09/17 17:21 Nitroglycerin (Nitrostat) 0.4 mg PRN Q5MIN PRN SL CHEST PAIN 01/09/17 17:15 01/09/17 18:11 Hydralazine HCl (Apresoline) 50 mg PRN QID PRN PO FOR HYPERTENSION 01/09/17 21:30 01/09/17 22:33 Acetaminophen/ Hydrocodone Bitart (Lortab 7.5/325) 1 tab PRN Q6HRS PRN PO SEVERE PAIN 01/09/17 21:30 01/09/17 22:34 Simvastatin (Zocor) 40 mg QHS PO 01/09/17 22:00 01/09/17 22:33 Cyclobenzaprine HCl (Flexeril) 5 mg QHS PO 01/09/17 22:00 01/09/17 22:33 Albuterol Sulfate (Ventolin Neb Soln) 2.5 mg RTQID NEB 01/10/17 08:00 01/10/17 07:12 Budesonide (Pulmicort) 0.5 mg RTBID NEB 01/10/17 08:00 01/10/17 07:12 ALLERGIES ALLERGIES: Coded Allergies: lisinopril (Verified Allergy, Intermediate, COUGH, 04/21/16) I S O L A T I O N *CONTACT* (Verified Allergy, Unknown, 04/21/16) mrsa + ROS Review of System 14 point ROS evaluated with pertinent positives noted per HPI PHYSICAL EXAM General: Alert, Oriented X3, Cooperative, No acute distress HEENT: Atraumatic, Mucous membr. moist/pink Lungs: Other (diffuse wheeze) Heart: Regular rate (SR), Normal S1, Normal S2, No murmurs Abdomen: Soft, No tenderness Extremities: No cyanosis, No edema Skin: No breakdown, No significant lesion Neuro: Normal speech, Cranial nerves 3-12 NL Psych/Mental Status: Mental status NL, Mood NL MUSCULOSKELETAL: Full range of motion without pain VITALS VITALS Vital Signs Date Time Temp Pulse Resp B/P (MAP) Pulse Ox O2 Delivery O2 Flow Rate FiO2 01/10/17 07:15 98 Room Air 01/10/17 07:00 97.9 89 18 166/114 (131) 97.9 LABS Lab: Laboratory Tests Test 01/09/17 16:15 01/09/17 21:02 7/10/17 23:15 01/10/17 05:15 White Blood Count 9.1 x10^3/uL (4.0-11.0) Red Blood Count 4.35 x10^6/uL (3.50-5.40) Hemoglobin 13.2 g/dL (12.0-15.5) Hematocrit 38.9 % (36.0-47.0) Mean Corpuscular Volume 90 fL (79-100) Mean Corpuscular Hemoglobin 31 pg (25-35) Mean Corpuscular Hemoglobin Concent 34 g/dL (31-37) Red Cell Distribution Width 14.2 % (11.5-14.5) Platelet Count 456 x10^3/uL (140-400) Neutrophils (%) (Auto) 64 % (31-73) Lymphocytes (%) (Auto) 23 % (24-48) Monocytes (%) (Auto) 7 % (0-9) Eosinophils (%) (Auto) 5 % (0-3) Basophils (%) (Auto) 1 % (0-3) Neutrophils # (Auto) 5.9 x10^3uL (1.8-7.7) Lymphocytes # (Auto) 2.0 x10^3/uL (1.0-4.8) Monocytes # (Auto) 0.6 x10^3/uL (0.0-1.1) Eosinophils # (Auto) 0.4 x10^3/uL (0.0-0.7) Basophils # (Auto) 0.1 x10^3/uL (0.0-0.2) Sodium Level 143 mmol/L (136-145) 141 mmol/L (136-145) Potassium Level 3.4 mmol/L (3.5-5.1) 3.3 mmol/L (3.5-5.1) Chloride Level 105 mmol/L (98-107) 104 mmol/L (98-107) Carbon Dioxide Level 27 mmol/L (21-32) 25 mmol/L (21-32) Anion Gap 11 (6-14) 12 (6-14) Blood Urea Nitrogen 10 mg/dL (7-20) 6 mg/dL (7-20) Creatinine 1.0 mg/dL (0.6-1.0) 0.8 mg/dL (0.6-1.0) Estimated GFR (Cockcroft-Gault) 72.5 93.9 BUN/Creatinine Ratio 10 (6-20) Glucose Level 94 mg/dL (70-99) 96 mg/dL (70-99) Calcium Level 8.7 mg/dL (8.5-10.1) 9.7 mg/dL (8.5-10.1) Total Bilirubin 0.3 mg/dL (0.2-1.0) Aspartate Amino Transf (AST/SGOT) 30 U/L (15-37) Alanine Aminotransferase (ALT/SGPT) 29 U/L (14-59) Alkaline Phosphatase 81 U/L (46-116) Troponin I Quantitative < 0.017 ng/mL (0.000-0.055) < 0.017 ng/mL (0.000-0.055) < 0.017 ng/mL (0.000-0.055) Total Protein 8.2 g/dL (6.4-8.2) Albumin 3.6 g/dL (3.4-5.0) Albumin/Globulin Ratio 0.8 (1.0-1.7) Glucose (Fingerstick) 106 mg/dL (70-99) Test 01/10/17 07:22 Glucose (Fingerstick) 106 mg/dL (70-99) ASSESSMENT/PLAN ASSESSMENT/PLAN 1. Chest pain: suspect bronchospasm with COPD exacerbation. 2. Arrhythmia: noted with x1 episode of brief Mobitz type 1 otherwise SR with no significant ectopies 3. Accelerated HTN: labile 4. DM2/HLP 5. AECOPD/Tobaccoism 6. Hypokalemia 7. Hx of lupus/TIA Recommendations 1. Start on amlodipine in addition to home HCTZ. Rash with lisinopril, if no hx of significant reaction then would recommend 100 mg of losartan in addition. Hydralazine IV PRN 2. TTE and MPI today and completely rule out ischemia. 3. Smoking cessation, continue secondary prevention 4. Will consider for event monitor if any further episodes of #2 after K correction Problems: ARCADIO CULVER [employer] Jan 10, 2017 09:53
[2017-01-10] MEDS: hydroCHLOROthiazide 12.5 MG CAPSULE PO SCH (10:39)
[2017-01-10] MEDS: POTASSIUM CHLORIDE 20 MEQ TABLET.ER. PO SCH ×3 (10:39→20:47)
[2017-01-10] MEDS: CETIRIZINE HCL 10 MG TABLET. PO SCH (10:39)
[2017-01-10] MEDS: metFORMIN 500 MG TABLET PO SCH ×2 (10:39→17:10)
[2017-01-10] MEDS: ASPIRIN ENTERIC COATED 81 MG TABLET.DR. PO SCH (10:40)
[2017-01-10] MEDS: FERROUS SULFATE 325 MG TABLET. PO SCH (10:40)
[2017-01-10] MEDS: MULTIVITAMIN with MINERAL TABLET. PO SCH (10:42)
[2017-01-10 11:01] VITALS: BP 174/111
[2017-01-10] MEDS ORDERED: hydrALAZINE 20 MG/ML VIAL. IVP PRN (11:15)
[2017-01-10] MEDS: amLODIPine BESYLATE 10 MG TABLET PO SCH (11:46)
[2017-01-10 15:00] VITALS: BP 156/99
--- NOTE | 2017-01-10 16:49 | RAD ---
APPROVED REPORT Test Type: Pharmacological Stress Nurse/Tech: Marianela Hawkins R.N. Test Indications: cp Cardiac History: copd, htn Medications: see ehr Medical History: see ehr Resting ECG: sr Resting Heart Rate: 79 bpm Resting Blood Pressure: 192/117mmHg Pretest Chest Pain: No chest pain Nurse/Tech Notes lungs cta, heart tones regular Consent: The procedure was explained to the patient in lay terms. Informed consent was witnessed. Shamir eout was entered into [employer]. History and Stress Test performed by Marianela Hawkins R.N. Pharm. Details Pharmacologic stress testing was performed using 0.4mg per 5ml of regadenoson given intravenously ove r 7-10 seconds. Stress Symptoms pt had 6/10 cp in minute 2 of recovery, pain resolved around minute 5, no other c/o POST EXERCISE Reason for Termination: Infusion complete Target HR: No Max HR: 108 bpm Max Blood Pressure: 174/104mmHg Chest Pain: Yes. see above Arrhythmia: No. ST Change: No. INTERPRETATION Stress EKG Conclusion: No evidence of stress induced EKG changes. Imaging Protocol IMAGE PROTOCOL: Rest Tc-99m/stress Tc-99m 1 day Rest: Stress: Viability: Radiopharm.Tc99m [id number] Sestamibi Dose10.9mCi 31.9mCi Duration 15min. 10min. Img Date 01/10/2017 01/10/2017 Inj-Img [id number]. 90min. Rest Admin Site:IV - Right AntecubitalAdministrator:ADALBERTO Erazo Stress Admin Site: IV - Right AntecubitalAdministrator: RAFA Koehler, ARRT (R)(N) STRESS DATA End Diast. Vol.84.0mlAv. Heart Rate96.0bpm End Syst. Vol.21.0mlCO Index BSA0.0L/min Myocardial Kmsd464.0gEject. Xvvjuysc56.0% Stress Rates Pk. Fill Rate4.25EDV/secLVtime Pk. Fill 154.81msec Pk. Empty Rate3.89ESV/secLVtime Pk. Eject73.49msec 07/05 Pk. Fill1.03EDV/sec Stress Scores Regional WT1.00Summed WT20.00 Regional WM0.00Summed WM2.00 The rest and stress images show normal perfusion, normal contraction and thickening. LV Perf. Quant 17 Seg. SSS1.00 17 Seg. SRS0.00 17 Seg. SDS1.00 Stress Defect Extent (% LAD)0.00Rest Defect Extent (% LAD)0.00Rev. Defect Extent (% LAD)0.00 Stress Defect Extent (% LCX) 0.00Rest Defect Extent (% LCX)0.00Rev. Defect Extent (% LCX)0.00 Stress Defect Extent (% RCA)0.00Rest Defect Extent (% RCA)0.00Rev. Defect Extent (% RCA)0.00 Stress Defect Extent (% AVERY)0.00Rest Defect Extent (% AVERY)0.00Rev. Defect Extent (% AVERY)0.00 Other Information Quality:Good Risk Assessment: Low Risk Conclusion 1. No evidence of stress induced EKG changes. 2. Normal perfusion at stress/rest. 3. Normal EF at > 70% 4. Low risk study.
[2017-01-10] MEDS: HYDROcodone/APAP 7.5/325MG 1 TAB TABLET PO PRN (17:10)
[2017-01-10] MEDS: LOSARTAN POTASSIUM 50 MG TABLET. PO SCH (17:10)
--- NOTE | 2017-01-10 17:33 | CARD ---
APPROVED REPORT EXAM: Two-dimensional and M-mode echocardiogram with Doppler and color Doppler. Other Information Quality : Average Rhythm : NSR INDICATION Hypertension/HCVD Chest Pain 2D DIMENSIONS RVDd2.7 (2.9-3.5cm)Left Atrium(2D)2.9 (1.6-4.0cm) IVSd1.7 (0.7-1.1cm)Aortic Root(2D)2.9 (2.0-3.7cm) LVDd3.5 (3.9-5.9cm)LVOT Diameter2.0 (1.8-2.4cm) PWd1.7 (0.7-1.1cm)LVDs2.5 (2.5-4.0cm) FS (%) 38.4 %SV28.9 ml LVEF(%)65.8 (>50%) Aortic Valve AoV Peak Riley.160.5cm/sAoV VTI21.7cm AO Peak GR.10.3mmHgLVOT Peak Riley.118.1cm/s LVOT VTI 16.48cmAO Mean GR.6mmHg WES (VMAX)4.43le8BKP (VTI)5.03cm2 Mitral Valve MV E Urlnndwi03.5cm/sMV DECEL ZYDV085sj MV A Urbfuxlk35.2cm/sMV NSE16xu E/A Ratio0.6MV A Zyecjxax52gy MVA (PHT)5.72cm2 TDI E/Lateral E'11.3E/Medial E'9.7 Pulmonary Valve PV Peak Aunbzhhc667.5cm/sPV Peak Grad.5mmHg RVOT VTI17.7cm Tricuspid Valve TR P. Hehbgiru303fy/sRAP BGCZPEUM4ehCf TR Peak Gr.85ybWnHOLP30rjNo Pulmonary Vein S1 Lvjbonas70.7cm/sD2 Oilgibbn28.9cm/s LEFT VENTRICLE The left ventricle is normal size. There is mild to moderate concentric left ventricular hypertrophy. Left ventricle systolic function is normal. The Ejection Fraction is 60-65%. There is normal LV segm ental wall motion. Tissue Doppler imaging reveals mild left ventricular diastolic dysfunction. Transm itral Doppler flow pattern is Grade I-abnormal relaxation pattern. There is no ventricular septal def ect visualized. RIGHT VENTRICLE The right ventricle is normal size. The right ventricular systolic function is normal. ATRIA The left atrium size is normal. The right atrium size is normal. The interatrial septum is intact wit h no evidence for an atrial septal defect or patent foramen ovale as noted on 2-D or Doppler imaging. AORTIC VALVE The aortic valve is normal in structure and function. The aortic valve is trileaflet. Doppler and Col or Flow revealed no significant aortic regurgitation. There is no significant aortic valvular stenosi s. MITRAL VALVE The mitral valve is normal in structure and function. There is no mitral valve stenosis. Doppler and Color Flow revealed no mitral valve regurgitation noted. TRICUSPID VALVE The tricuspid valve is not well visualized. Doppler and Color Flow revealed trace tricuspid regurgita tion. The PA pressure was estimated at 29 mmHg. There is no tricuspid valve stenosis. PULMONIC VALVE The pulmonic valve is not well visualized. Doppler and Color Flow revealed no pulmonic valvular regur gitation. There is no pulmonic valvular stenosis. GREAT VESSELS The aortic root is normal in size. Normal pulmonary venous flow (Doppler). The IVC is normal in size and collapses >50% with inspiration. PERICARDIAL EFFUSION There is no evidence of significant pericardial effusion. Critical Notification Critical Value: No <Conclusion> The left ventricle is normal size. Left ventricle systolic function is normal. The Ejection Fraction is 60-65%. There is mild to moderate concentric left ventricular hypertrophy. There is no significant aortic valvular stenosis. Doppler and Color Flow revealed no significant aortic regurgitation. Doppler and Color Flow revealed no mitral valve regurgitation noted. Doppler and Color Flow revealed trace tricuspid regurgitation. The PA pressure was estimated at 29 mmHg.
[2017-01-10] MEDS ORDERED: ZOLPIDEM 5 MG TABLET. PO PRN (18:30)
[2017-01-10 19:00] VITALS: BP_SYST 102; BP_SYST 169; BP_DIAS 105; BP_DIAS 73
--- NOTE | 2017-01-10 19:17 | PDOC1 ---
History and Physical Date of Admission Date of Admission DATE: 01/09/17 TIME: 1800 Identification/Chief Complaint Chief Complaint chest pain radiating from sternum to back Problems: Source Source: Patient History of Present Illness History of Present Illness Patient is a 46 year old female who presented from home after a 2 hour history of chest discomfort that was substernal and radiated to her back but occurred at rest and was sharp in nature but worse with breathing and coughing with a cough some slight wheezing. No fever, nausea, vomiting. Positive history of lupus, type 2 diabetes, and asthma, smoking. Not on steroids. No history of heart disease but several years ago had a partial lung resection in the right lower lung secondary to complication of pneumonia with "drainage of fluid ". Past Medical History Cardiovascular: HTN, Hyperlipidemia Pulmonary: Asthma, COPD CENTRAL NERVOUS SYSTEM: Migraine GI: No pertinent hx Heme/Onc: Anemia NOS, Other Hepatobiliary: No pertinent hx Psych: Anxiety, Depression Musculoskeletal: low back pain, Osteoarthritis, Other Rheumatologic: No pertinent hx, Gout Infectious disease: No pertinent hx ENT: Allergic Rhinitis Renal/: Chronic renal insuff Endocrine: Diabetes Dermatology: No pertinent hx Grav: 7 Para: 4 Past Surgical History Past Surgical History: Tubal Ligation, Hysterectomy, Other Family History Family History: Diabetes Social History Smoke: <1 pack per day ALCOHOL: none Drugs: None Current Problem List Problem List Problems Medical Problems: (1) Chest pain Status: Acute Problems: Current Medications Current Medications Current Medications Albuterol Sulfate (Ventolin Neb Soln) 2.5 mg 1X ONCE NEB Last administered on 01/09/17 15:29; Start 01/09/17 at 15:30; Stop 01/09/17 at 15:31; Status DC Aspirin (Children'S Aspirin) 324 mg 1X ONCE PO Last administered on 01/09/17 17:20; Start 01/09/17 at 17:15; Stop 01/09/17 at 17:16; Status DC Nitroglycerin (Nitro-Bid Oint) 1 inch 1X ONCE TP Last administered on 17:21; Start 01/09/17 at 17:15; Stop 01/09/17 at 17:16; Status DC Nitroglycerin (Nitrostat) 0.4 mg PRN Q5MIN PRN SL CHEST PAIN Last administered on 01/09/17 18:11; Start 01/09/17 at 17:15 Ondansetron HCl (Zofran) 4 mg PRN Q8HRS PRN IV NAUSEA/VOMITING; Start 01/09/17 at 17:30; Stop 01/10/17 at 17:29; Status DC Morphine Sulfate 4 mg PRN Q2HR PRN IV PAIN; Start 01/09/17 at 17:30; Stop 01/10 at 17:29; Status DC Aripiprazole (Abilify) 5 mg PRN DAILY PRN PO ANXIETY; Start 01/09/17 at 21:30 Aspirin (Ecotrin) 81 mg DAILY PO Last administered on 01/10/17 10:40; Start at 09:00 Ferrous Sulfate (Feosol) 325 mg DAILY PO Last administered on 01/10/17 10:40; Start 01/10/17 at 09:00 Hydralazine HCl (Apresoline) 50 mg PRN QID PRN PO FOR HYPERTENSION Last administered on 01/09/17 22:33; Start 01/09/17 at 21:30 Hydrochlorothiazide (Microzide) 12.5 mg DAILY PO Last administered on 10:39; Start 01/10/17 at 09:00 Acetaminophen/ Hydrocodone Bitart (Lortab 7.5/325) 1 tab PRN Q6HRS PRN PO SEVERE PAIN Last administered on 01/10/17 17:10; Start 01/09/17 at 21:30 Metformin HCl (Glucophage) 500 mg BIDAC PO Last administered on 01/10/17 17:10 ; Start 01/10/17 at 07:30 Potassium Chloride (Klor-Con) 20 meq TID PO Last administered on 01/10/17 17: 09; Start 01/10/17 at 09:00 Simvastatin (Zocor) 40 mg QHS PO Last administered on 01/09/17 22:33; Start at 22:00; Stop 01/10/17 at 11:13; Status DC Non-Formulary Medication 2 puff Q4HRS PRN INH SHORTNESS OF BREATH; Start at 21:30; Status UNV Non-Formulary Medication 2 puff BID IH ; Start 01/10/17 at 09:00; Status UNV Cyclobenzaprine HCl (Flexeril) 5 mg QHS PO Last administered on 01/09/17 22:33 ; Start 01/09/17 at 22:00 Fluticasone Propionate (Flonase) 2 spray DAILY NS ; Start 01/10/17 at 09:00 Non-Formulary Medication 1 puff BID INH ; Start 01/10/17 at 09:00; Status UNV Ibuprofen (Motrin) 800 mg PRN Q8HRS PRN PO INFLAMMATION; Start 01/09/17 at 21: 30 Cetirizine HCl (ZyrTEC) 10 mg DAILY PO Last administered on 01/10/17 10:39; Start 01/10/17 at 09:00 Multivitamins (Thera M Plus) 1 tab DAILY PO Last administered on 01/10/17 10: 42; Start 01/10/17 at 09:00 Albuterol Sulfate (Ventolin Neb Soln) 2.5 mg RTQID NEB Last administered on 15:21; Start 01/10/17 at 08:00 Albuterol Sulfate (Ventolin Neb Soln) 2.5 mg PRN Q4HRS PRN NEB SHORTNESS OF BREATH; Start 01/09/17 at 21:45 Budesonide (Pulmicort) 0.5 mg RTBID NEB Last administered on 01/10/17 07:12; Start 01/10/17 at 08:00 Regadenoson (Lexiscan) 0.4 mg 1X ONCE IV Last administered on 01/10/17 08:30 ; Start 01/10/17 at 08:30; Stop 01/10/17 at 08:31; Status DC Amlodipine Besylate (Norvasc) 10 mg DAILY PO Last administered on 01/10/17 11: 46; Start 01/10/17 at 11:00 Hydralazine HCl (Apresoline) 10 mg PRN Q4HRS PRN IVP ELEVATED BP, SEE COMMENTS ; Start 01/10/17 at 11:15 Atorvastatin Calcium (Lipitor) 20 mg QHS PO ; Start 01/10/17 at 21:00 Losartan Potassium (Cozaar) 100 mg DAILY PO Last administered on 01/10/17 17: 10; Start 01/10/17 at 17:00 Zolpidem Tartrate (Ambien) 5 mg PRN QHS PRN PO INSOMNIA; Start 01/10/17 at 18: 30 Fluticasone Propionate (Flonase) 2 spray DAILY NS ; Start 01/11/17 at 09:00; Status UNV Azelastine HCl (Astelin) 2 spray BID NS ; Start 01/10/17 at 21:00 Active Scripts Active Augmentin 875-125 Tablet (Amoxicillin/Potassium Clav) 1 Each Tablet 1 Tab PO BID Zithromax Packet (Azithromycin) 1 Gm Packet 1 Packet PO ONCE Prednisone 10 Mg Tablet 10 Mg PO UD Take 5 for 2 days then, 4 for 2 days then, 3 for 2 days then, 2 for 2 days then, 1 for 2 days then stop. Colace (Docusate Sodium) 100 Mg Capsule 1 Cap PO BID Ibuprofen 800 Mg Tablet 800 Mg PO PRN Q6HRS PRN Klor-Con M20 (Potassium Chloride) 20 Meq Tablet.er 20 Meq PO TID 7 Days Microzide (Hydrochlorothiazide) 12.5 Mg Capsule 12.5 Mg PO DAILY 30 Days Glucophage (Metformin Hcl) 500 Mg Tablet 500 Mg PO BIDAC 90 Days Advair 250-50 Diskus (Fluticasone/Salmeterol) 1 Puff Puff 1 Puff INH BID 90 Days Reported Multi-Day Vitamins (Multivitamin) 1 Each Tablet 1 Tab PO DAILY Flonase Allergy Relief (Fluticasone Propionate) 9.9 Ml [place].susp 2 Sprays NS DAILY Aspir 81 (Aspirin) 81 Mg Tablet. 1 Tab PO DAILY Abilify (Aripiprazole) 5 Mg Tablet 5 Mg PO DAILY PRN Hydrocodone-Apap 7.5-325 (Hydrocodone Bit/Acetaminophen) 1 Each Tablet 1 Tab PO PRN Q6HRS PRN Simvastatin 40 Mg Tablet 1 Tab PO QHS Hydralazine Hcl 50 Mg Tablet 50 Mg PO QID PRN Ferrous Sulfate 325 Mg Tablet 1 Tab PO DAILY Cyclobenzaprine Hcl 5 Mg Tablet 1 Tab PO QHS PRN Proair Hfa Inhaler (Albuterol Sulfate) 8.5 Gm Hfa.aer.ad 2 Puff INH Q4HRS PRN Loratadine 10 Mg Tablet 1 Tab PO DAILY Albuterol Sulfate Conc Neb Soln (Albuterol Sulfate) 2.5 Mg/0.5 Ml Vial.neb 2.5 Mg IH Symbicort 160-4.5 Mcg Inhaler (Budesonide/Formoterol Fumarate) 10.2 Gm Hfa.aer.ad 2 Puff IH BID Allergies Allergies: Coded Allergies: lisinopril (Verified Allergy, Intermediate, COUGH, 04/21/16) I S O L A T I O N *CONTACT* (Verified Allergy, Unknown, 04/21/16) mrsa + ROS General: No: Chills, Night Sweats, Fatigue, Malaise, Appetite PSYCHOLOGICAL ROS: YES: Anxiety, Depression, Mood Swings, Sleep disturbances Eyes: Yes Uses glasses, No Blurry vision, No Decreased vision, No Double vision, No Dry eyes, No Excessive tearing, No Eye Pain, No Itchy Eyes, No Loss of vision, No Photophobia , No Scotomata, No Uses contacts HEENT: YES: Nasal congestion, Snoring, Vocal changes, No: Heacaches, Visual Changes, Hearing change, Nasal discharge, Oral lesions , Sinus pain, Sore Throat, Epistaxis, Sneezing, Tinnitus, Vertigo ALLERGY AND IMMUNOLOGY: YES: Nasal Congestion, Post Nasal Drip, Seasonal Allergies, No: Hives, Insect Bite Sensitivity, Itchy/Watery Eyes Hematological and Lymphatic: No: Bleeding Problems, Blood Clots, Blood Transfusions, Brusing, Night Sweats, Pallor, Swollen Lymph Nodes ENDOCRINE: No: Breast Changes, Galactorrhea, Hair Pattern Changes, Hot Flashes , Malaise/lethargy, Mood Swings, Palpitations, Polydipsia/polyuria, Skin Changes , Temperature Intolerance, Unexpected Weight Changes Respiratory: YES: Other (see HPI) Cardiovascular: yes Other (see HPI) Gastrointestinal: No Nausea, No Vomiting, No Abdominal Pain, No Diarrhea, No Constipation, No Melena, No Hematochezia Genitourinary: No Dysuria, No Frequency, No Incontinence, No Hematuria, No Retention, No Discharge, No Urgency, No Pain, No Flank Pain, No , No , No , No , No , No , No Musculoskeletal: No Gait Disturbance, No Joint Pain, No Joint Stiffness, No Joint Swelling, No Muscle Pain, No Muscular Weakness, No Pain In:, No Swelling In: Neurological: No Behavorial Changes, No Bowel/Bladder ControlChng, No Confusion , No Dizziness, No Gait Disturbance, No Headaches, No Impaired Coord/balance, No Memory Loss, No Numbness/Tingling, No Seizures, No Speech Problems, No Tremors, No Visual Changes, No Weakness Skin: No Dry Skin, No Eczema, No Hair Changes, No Lumps, No Mole Changes, No Mottling, No Nail Changes, No Pruritus, No Rash, No Skin Lesion Changes, No Acne Physical Exam General: Alert, Oriented X3, Cooperative HEENT: Other (nasal congestion without sinus tenderness) Lungs: Other (prolonged expiratory phase but no wheezing, rhonchi or rales) Heart: S1S2, RRR, no gallops, no murmurs, no jug vein distention Abdomen: Normal bowel sounds, Soft, No tenderness, No hepatosplenomegaly Extremities: No clubbing, No cyanosis, No edema Skin: No rashes, No breakdown Neuro: Normal gait, Normal speech Psych/Mental Status: Mental status NL, Mood NL Vitals Vitals Vital Signs Date Time Temp Pulse Resp B/P (MAP) Pulse Ox O2 Delivery O2 Flow Rate FiO2 01/10/17 18:30 98 Room Air 01/10/17 17:10 86 156/99 01/10/17 15:00 97.5 18 97.5 Labs Labs Laboratory Tests Test 01/09/17 16:15 01/09/17 21:02 01/09/17 23:15 01/10/17 05:15 White Blood Count 9.1 x10^3/uL (4.0-11.0) Red Blood Count 4.35 x10^6/uL (3.50-5.40) Hemoglobin 13.2 g/dL (12.0-15.5) Hematocrit 38.9 % (36.0-47.0) Mean Corpuscular Volume 90 fL (79-100) Mean Corpuscular Hemoglobin 31 pg (25-35) Mean Corpuscular Hemoglobin Concent 34 g/dL (31-37) Red Cell Distribution Width 14.2 % (11.5-14.5) Platelet Count 456 x10^3/uL (140-400) Neutrophils (%) (Auto) 64 % (31-73) Lymphocytes (%) (Auto) 23 % (24-48) Monocytes (%) (Auto) 7 % (0-9) Eosinophils (%) (Auto) 5 % (0-3) Basophils (%) (Auto) 1 % (0-3) Neutrophils # (Auto) 5.9 x10^3uL (1.8-7.7) Lymphocytes # (Auto) 2.0 x10^3/uL (1.0-4.8) Monocytes # (Auto) 0.6 x10^3/uL (0.0-1.1) Eosinophils # (Auto) 0.4 x10^3/uL (0.0-0.7) Basophils # (Auto) 0.1 x10^3/uL (0.0-0.2) Sodium Level 143 mmol/L (136-145) 141 mmol/L (136-145) Potassium Level 3.4 mmol/L (3.5-5.1) 3.3 mmol/L (3.5-5.1) Chloride Level 105 mmol/L (98-107) 104 mmol/L (98-107) Carbon Dioxide Level 27 mmol/L (21-32) 25 mmol/L (21-32) Anion Gap 11 (6-14) 12 (6-14) Blood Urea Nitrogen 10 mg/dL (7-20) 6 mg/dL (7-20) Creatinine 1.0 mg/dL (0.6-1.0) 0.8 mg/dL (0.6-1.0) Estimated GFR (Cockcroft-Gault) 72.5 93.9 BUN/Creatinine Ratio 10 (6-20) Glucose Level 94 mg/dL (70-99) 96 mg/dL (70-99) Calcium Level 8.7 mg/dL (8.5-10.1) 9.7 mg/dL (8.5-10.1) Total Bilirubin 0.3 mg/dL (0.2-1.0) Aspartate Amino Transf (AST/SGOT) 30 U/L (15-37) Alanine Aminotransferase (ALT/SGPT) 29 U/L (14-59) Alkaline Phosphatase 81 U/L (46-116) Troponin I Quantitative < 0.017 ng/mL (0.000-0.055) < 0.017 ng/mL (0.000-0.055) < 0.017 ng/mL (0.000-0.055) Total Protein 8.2 g/dL (6.4-8.2) Albumin 3.6 g/dL (3.4-5.0) Albumin/Globulin Ratio 0.8 (1.0-1.7) Glucose (Fingerstick) 106 mg/dL (70-99) Magnesium Level 1.8 mg/dL (1.8-2.4) Thyroid Stimulating Hormone (TSH) 1.519 uIU/mL (0.358-3.74) Test 01/10/17 07:22 01/10/17 11:28 01/10/17 17:23 Glucose (Fingerstick) 106 mg/dL (70-99) 139 mg/dL (70-99) 152 mg/dL (70-99) Laboratory Tests Test 01/09/17 21:02 01/09/17 23:15 01/10/17 05:15 01/10/17 07:22 Glucose (Fingerstick) 106 mg/dL (70-99) 106 mg/dL (70-99) Troponin I Quantitative < 0.017 ng/mL (0.000-0.055) < 0.017 ng/mL (0.000-0.055) Sodium Level 141 mmol/L (136-145) Potassium Level 3.3 mmol/L (3.5-5.1) Chloride Level 104 mmol/L (98-107) Carbon Dioxide Level 25 mmol/L (21-32) Anion Gap 12 (6-14) Blood Urea Nitrogen 6 mg/dL (7-20) Creatinine 0.8 mg/dL (0.6-1.0) Estimated GFR (Cockcroft-Gault) 93.9 Glucose Level 96 mg/dL (70-99) Calcium Level 9.7 mg/dL (8.5-10.1) Magnesium Level 1.8 mg/dL (1.8-2.4) Thyroid Stimulating Hormone (TSH) 1.519 uIU/mL (0.358-3.74) Test 01/10/17 11:28 01/10/17 17:23 Glucose (Fingerstick) 139 mg/dL (70-99) 152 mg/dL (70-99) VTE Prophylaxis Ordered VTE Prophylaxis Devices: Yes VTE Pharmacological Prophylaxi: Yes Assessment/Plan Assessment/Plan Chest pain- ACS protocol, stress MPI, echo, cardiology consult, treat respiratory symptoms with neb treatments in place of Symbicort DIAMANTE ANTHONY MD Jan 10, 2017 19:17
[2017-01-10] MEDS: CYCLOBENZAPRINE 10 MG TABLET. PO SCH (20:47)
[2017-01-10] MEDS: AZELASTINE NASAL SPRAY 30ML BOTTLE. NS SCH (20:48)
[2017-01-10] MEDS ORDERED: ATORVASTATIN CALCIUM 20 MG TABLET PO SCH (21:00)
[2017-01-10 23:00] VITALS: BP 149/83
[2017-01-11 03:00] VITALS: BP 149/86
[2017-01-11 07:00] VITALS: BP 136/96
[2017-01-11] MEDS: ALBUTEROL SULFATE 2.5 MG/3 ML NEBU. NEB SCH ×3 (07:43→15:48)
[2017-01-11] MEDS: BUDESONIDE 0.5 MG/2 ML NEBU. NEB SCH (07:43)
[2017-01-11] MEDS: MULTIVITAMIN with MINERAL TABLET. PO SCH (08:23)
[2017-01-11] MEDS: metFORMIN 500 MG TABLET PO SCH (08:24)
[2017-01-11] MEDS: amLODIPine BESYLATE 10 MG TABLET PO SCH (08:24)
[2017-01-11] MEDS: CETIRIZINE HCL 10 MG TABLET. PO SCH (08:24)
[2017-01-11] MEDS: FERROUS SULFATE 325 MG TABLET. PO SCH (08:25)
[2017-01-11] MEDS: ASPIRIN ENTERIC COATED 81 MG TABLET.DR. PO SCH (08:25)
[2017-01-11] MEDS: hydroCHLOROthiazide 12.5 MG CAPSULE PO SCH (08:25)
[2017-01-11] MEDS: POTASSIUM CHLORIDE 20 MEQ TABLET.ER. PO SCH ×2 (08:26→14:00)
[2017-01-11] MEDS: FLUTICASONE 50MCG/NASAL SPRAY 16GM BOTTLE. NS SCH (08:26)
[2017-01-11] MEDS: AZELASTINE NASAL SPRAY 30ML BOTTLE. NS SCH (08:26)
[2017-01-11] MEDS ORDERED: FLUTICASONE 50MCG/NASAL SPRAY 16GM BOTTLE. NS SCH (09:00)
[2017-01-11 10:42] VITALS: BP 158/99
[2017-01-11 10:57] VITALS: BP 158/99
[2017-01-11] MEDS: LOSARTAN POTASSIUM 50 MG TABLET. PO SCH (10:57)
--- NOTE | 2017-01-11 11:47 | PDOC ---
CARDIO Progress Notes Date and Time Date of Service 01/11/2017 Time of Evaluation 1140 Subjective Subjective: No Chest Pain, No shortness of breath, No Palpitations, No Dizziness Vitals Vitals Vital Signs Date Time Temp Pulse Resp B/P (MAP) Pulse Ox O2 Delivery O2 Flow Rate FiO2 01/11/17 11:34 Room Air 01/11/17 10:57 92 158/99 01/11/17 10:42 98.5 18 100 98.5 Weight Weight [ ] Input and Output Intake and Output Intake and Output 01/11/17 07:00 Intake Total 1200 ml Output Total 750 ml Balance 450 ml Intake Oral 1200 ml Output Urine Total 750 ml Laboratory Labs Laboratory Tests Test 01/10/17 17:23 01/10/17 20:34 01/11/17 07:45 Glucose (Fingerstick) 152 mg/dL (70-99) 135 mg/dL (70-99) 136 mg/dL (70-99) Physical Exam HEENT: Neck Supple W Full Motion Chest: Symmetric LUNGS: Other (diminished bases with faint upper wheezing) Heart: S1S2, RRR (SR no significant ectopies), no jug vein distention Abdomen: Soft N/T Extremities: No Calf Tenderness Neurology: alert, oriented, follow commands Assessment Assessment 1. Chest pain: No further episodes. suspect bronchospasm. Noncardiac. 2. Arrhythmia: noted with x1 episode of brief [place] type 1 yesterday (2:1). Low K contributing. No further episodes. 3. Accelerated HTN 4. DM2/HLP 5. AECOPD/Tobaccoism 6. Hypokalemia: on replacement per PCP 7. Hx of lupus/TIA Recommendations 1. TTE notable for hypertensive heart disease otherwis normal EF no significant valvular dysfunction. MPI unremarkable for ischemia. May DC per cardiac standpoint 2. Better BP with amlodipine, losartan, HCTZ 3. Smoking cessation, continue secondary prevention [employer] Jan 11, 2017 11:47
[2017-01-11] MEDS ORDERED: AMLO10TA2 PO (15:16)
[2017-01-11] MEDS ORDERED: PRED-220 PO (15:16)
[2017-01-11] MEDS ORDERED: LOSA50TA2 PO (15:16)
[2017-01-11] MEDS ORDERED: ATOR20TA58 PO (15:16)
--- NOTE | 2017-01-11 15:31 | PDOC3 ---
Discharge Summary Visit Information Date of Admission: Jan 09, 2017 Date of Discharge: Jan 11, 2017 Final Diagnosis Problems Medical Problems: (1) Chest pain Status: Acute Brief Hospital Course Allergies Allergies Coded Allergies Type Severity Reaction Last Updated Verified lisinopril Allergy Intermediate COUGH 04/21/16 Yes I S O L A T I O N *CONTACT* Allergy Unknown 04/21/16 Yes Vital Signs Vital Signs Date Time Temp Pulse Resp B/P (MAP) Pulse Ox O2 Delivery O2 Flow Rate FiO2 01/11/17 11:34 Room Air 01/11/17 10:57 92 158/99 01/11/17 10:42 98.5 18 100 98.5 Lab Results Laboratory Tests Test 01/09/17 16:15 01/09/17 21:02 01/09/17 23:15 01/10/17 05:15 White Blood Count 9.1 x10^3/uL (4.0-11.0) Red Blood Count 4.35 x10^6/uL (3.50-5.40) Hemoglobin 13.2 g/dL (12.0-15.5) Hematocrit 38.9 % (36.0-47.0) Mean Corpuscular Volume 90 fL (79-100) Mean Corpuscular Hemoglobin 31 pg (25-35) Mean Corpuscular Hemoglobin Concent 34 g/dL (31-37) Red Cell Distribution Width 14.2 % (11.5-14.5) Platelet Count 456 x10^3/uL (140-400) Neutrophils (%) (Auto) 64 % (31-73) Lymphocytes (%) (Auto) 23 % (24-48) Monocytes (%) (Auto) 7 % (0-9) Eosinophils (%) (Auto) 5 % (0-3) Basophils (%) (Auto) 1 % (0-3) Neutrophils # (Auto) 5.9 x10^3uL (1.8-7.7) Lymphocytes # (Auto) 2.0 x10^3/uL (1.0-4.8) Monocytes # (Auto) 0.6 x10^3/uL (0.0-1.1) Eosinophils # (Auto) 0.4 x10^3/uL (0.0-0.7) Basophils # (Auto) 0.1 x10^3/uL (0.0-0.2) Sodium Level 143 mmol/L (136-145) 141 mmol/L (136-145) Potassium Level 3.4 mmol/L (3.5-5.1) 3.3 mmol/L (3.5-5.1) Chloride Level 105 mmol/L (98-107) 104 mmol/L (98-107) Carbon Dioxide Level 27 mmol/L (21-32) 25 mmol/L (21-32) Anion Gap 11 (6-14) 12 (6-14) Blood Urea Nitrogen 10 mg/dL (7-20) 6 mg/dL (7-20) Creatinine 1.0 mg/dL (0.6-1.0) 0.8 mg/dL (0.6-1.0) Estimated GFR (Cockcroft-Gault) 72.5 93.9 BUN/Creatinine Ratio 10 (6-20) Glucose Level 94 mg/dL (70-99) 96 mg/dL (70-99) Calcium Level 8.7 mg/dL (8.5-10.1) 9.7 mg/dL (8.5-10.1) Total Bilirubin 0.3 mg/dL (0.2-1.0) Aspartate Amino Transf (AST/SGOT) 30 U/L (15-37) Alanine Aminotransferase (ALT/SGPT) 29 U/L (14-59) Alkaline Phosphatase 81 U/L (46-116) Troponin I Quantitative < 0.017 ng/mL (0.000-0.055) < 0.017 ng/mL (0.000-0.055) < 0.017 ng/mL (0.000-0.055) Total Protein 8.2 g/dL (6.4-8.2) Albumin 3.6 g/dL (3.4-5.0) Albumin/Globulin Ratio 0.8 (1.0-1.7) Glucose (Fingerstick) 106 mg/dL (70-99) Magnesium Level 1.8 mg/dL (1.8-2.4) Thyroid Stimulating Hormone (TSH) 1.519 uIU/mL (0.358-3.74) Test 01/10/17 07:22 01/10/17 11:28 01/10/17 17:23 01/10/17 20:34 Glucose (Fingerstick) 106 mg/dL (70-99) 139 mg/dL (70-99) 152 mg/dL (70-99) 135 mg/dL (70-99) Test 01/11/17 07:45 01/11/17 12:32 01/11/17 14:45 Glucose (Fingerstick) 136 mg/dL (70-99) 127 mg/dL (70-99) Potassium Level 3.7 mmol/L (3.5-5.1) Laboratory Tests Test 01/10/17 17:23 01/10/17 20:34 01/11/17 07:45 01/11/17 12:32 Glucose (Fingerstick) 152 mg/dL (70-99) 135 mg/dL (70-99) 136 mg/dL (70-99) 127 mg/dL (70-99) Test 01/11/17 14:45 Potassium Level 3.7 mmol/L (3.5-5.1) Brief Hospital Course Ms. García is a 46 old who presented with chest pain and admitted for serial enzymes, cardiology consult, stress MPI and echo. She had accelerated hypertension and an asthma exacerbation which were the cause of her pain. Her pain has completely resolve. Her MPI was low risk, her echo showed LVH but her EF is normal. Amlodipine 10 mg was added as is losartan 100 mg daily and her simvastatin is changed to atorvastatin to avoid interaction with amlodipine. She is also sent home on a 10 day prednisone taper for her asthm exac which was triggered by a flare of allergies Discharge Information Condition at Discharge: Improved, Stable Follow Up: Weeks ([address] Biswas) Disposition/Orders: D/C to Home Scheduled Amlodipine Besylate (Amlodipine Besylate), 10 MG PO DAILY Aspirin (Aspir 81), 1 TAB PO DAILY, (Reported) Atorvastatin Calcium (Atorvastatin Calcium), 20 MG PO QHS Budesonide/Formoterol Fumarate (Symbicort 160-4.5 Mcg Inhaler), 2 PUFF IH BID, ( Reported) Docusate Sodium (Colace), 1 CAP PO BID Ferrous Sulfate (Ferrous Sulfate), 1 TAB PO DAILY, (Reported) Fluticasone Propionate (Flonase Allergy Relief), 2 SPRAYS NS DAILY, (Reported) Hydrochlorothiazide (Microzide), 12.5 MG PO DAILY Loratadine (Loratadine), 1 TAB PO DAILY, (Reported) Losartan Potassium (Cozaar), 100 MG PO DAILY Metformin Hcl (Glucophage), 500 MG PO BIDAC Multivitamin (Multi-Day Vitamins), 1 TAB PO DAILY, (Reported) Potassium Chloride (Klor-Con M20), 20 MEQ PO TID Prednisone (Prednisone), 10 MG PO UD Scheduled PRN Albuterol Sulfate (Proair Hfa Inhaler), 2 PUFF INH Q4HRS PRN for SHORTNESS OF BREATH, (Reported) Aripiprazole (Abilify), 5 MG PO DAILY PRN for ANXIETY, (Reported) Cyclobenzaprine Hcl (Cyclobenzaprine Hcl), 1 TAB PO QHS PRN for MUSCLE SPASMS, ( Reported) Hydralazine Hcl (Hydralazine Hcl), 50 MG PO QID PRN for ITCHING, (Reported) Hydrocodone Bit/Acetaminophen (Hydrocodone-Apap 7.5-325 ), 1 TAB PO PRN Q6HRS PRN for PAIN, (Reported) Miscellaneous Medications Albuterol Sulfate (Albuterol Sulfate Conc Neb Soln), 2.5 MG IH, (Reported) Discontinued Medications Amoxicillin/Potassium Clav (Augmentin 875-125 Tablet), 1 TAB PO BID Azithromycin (Zithromax Packet), 1 PACKET PO ONCE Fluconazole (Fluconazole), 150 MG PO DAILY, (Reported) Fluticasone/Salmeterol (Advair 250-50 Diskus), 1 PUFF INH BID Ibuprofen (Ibuprofen), 800 MG PO PRN Q6HRS PRN for INFLAMMATION Simvastatin (Simvastatin), 1 TAB PO QHS, (Reported) Patient Instructions Patient Instructions stop simvastatin and replace it with atorvastatin for cholesterol to avoid a drug interaction with amlodipine, start amlodipine 10 mg and losartan 100 mg daily for high blood pressure and LVH. Start and complete prednisone taper for asthma and allergies DIAMANTE ANTHONY MD Jan 11, 2017 15:31
== END 2017-01-11 16:12 | disposition home or self-care (01) ==
LOC: ER 15:05 → 6 SOUTH 18:00
PROVIDERS: ADMIT Family Medicine; ATTEND Family Medicine
DX: R07.89 Other chest pain (principal); I49.9 Cardiac arrhythmia, unspecified; E87.6 Hypokalemia; E78.5 Hyperlipidemia, unspecified; J44.1 Chronic obstructive pulmonary disease with (acute) exacerbation; J45.901 Unspecified asthma with (acute) exacerbation; G43.909 Migraine, unspecified, not intractable, without status migrainosus; F32.9 Major depressive disorder, single episode, unspecified; F41.9 Anxiety disorder, unspecified; M19.90 Unspecified osteoarthritis, unspecified site; M10.9 Gout, unspecified; I12.9 Hypertensive chronic kidney disease with stage 1 through stage 4 chronic kidney disease, or unspecified chronic kidney disease; N18.2 Chronic kidney disease, stage 2 (mild); E11.22 Type 2 diabetes mellitus with diabetic chronic kidney disease; F17.210 Nicotine dependence, cigarettes, uncomplicated; Z90.710 Acquired absence of both cervix and uterus; Z86.73 Personal history of transient ischemic attack (TIA), and cerebral infarction without residual deficits; Z83.3 Family history of diabetes mellitus; Z79.899 Other long term (current) drug therapy
CPT/HCPCS: 36415; 71010; 78452; 80048; 80053; 82962; 83735; 84132; 84443; 84484; 85027; 93005; 93017; 93306; 94250; 94640; 99285; A9500; G0378; J2785; J7626; 96374; 96375; 96376; G0379

== ENCOUNTER 2017-03-21 19:50 | Inpatient (IN) | payer OTHER ==
[~2017-03-21] VITALS: Ht 165.1 cm; Wt 75.3 kg
[~2017-03-21 19:50] MED LIST changes: +AMLO10TA2 PO; +ATOR20TA58 PO; +HYDR25TA9 PO; +LOSA50TA2 PO; +POTA20TA82 PO
[2017-03-21] MEDS ORDERED: IV NORMAL SALINE 1000ML BAG 1,000 ML IV ONE (20:45)
[2017-03-21] MEDS ORDERED: LIDO:MAALOX:DONNATAL 1:1:1 15 ML SINGLE DOSE SWSW ONE (20:45)
[2017-03-21 20:52] LABS: BASO % 0 % (0-3); EOS % 1 % (0-3); HEMATOCRIT 37.4 % (36.0-47.0); HEMOGLOBIN 12.7 g/dL (12.0-15.5); LYMPH # 2.1 x10^3/uL (1.0-4.8); LYMPH % 16 % (24-48); MEAN CORPUSCULAR HEMOGLOBIN 31 pg (25-35); MEAN CORPUSCULAR HGB CONC 34 g/dL (31-37); MEAN CORPUSCULAR VOLUME 91 fL (79-100); MONO % 4 % (0-9); NEUT % 78 % (31-73); PLATELET COUNT 556 x10^3/uL (140-400); RED BLOOD COUNT 4.09 x10^6/uL (3.50-5.40); RED CELL DISTRIBUTION WIDTH 14.4 % (11.5-14.5)
[2017-03-21 21:04] LABS: CALCIUM 8.9 mg/dL (8.5-10.1); GFR 72.5; POTASSIUM 3.4 mmol/L (3.5-5.1)
[2017-03-21 21:09] LABS: ALBUMIN 3.1 g/dL (3.4-5.0); ALBUMIN/GLOBULIN RATIO 0.7 (1.0-1.7); TOTAL BILIRUBIN 0.4 mg/dL (0.2-1.0); TOTAL PROTEIN 7.4 g/dL (6.4-8.2)
--- NOTE | 2017-03-21 22:10 | RAD ---
ABDOMEN LTD History: Postprandial chest burning sensation for one week Comparison: None. Findings: Multiple sonographic images of the abdomen are submitted. There is segmental visualization of the inferior vena cava. No focal abnormality is demonstrated of the visualized pancreas. Common bile duct is within normal limits at 0.4 cm. Hepatic echotexture is within normal limits, no focal hepatic lesion demonstrated. Right lobe of liver is somewhat prominent 19.2 cm longitudinal. There is demonstrable flow in the main portal vein. Right kidney measured 10.5 x 4.4 x 4.4 cm, no hydronephrosis. Gallbladder is present without intraluminal abnormality, wall thickening, pericholecystic fluid. Common bile duct is within normal limits at 0.5 cm. No free fluid is demonstrated. Impression: 1. Other than mild hepatomegaly, no abnormality is demonstrated. Electronically signed by: Jewel Jaime MD (03/21/2017 10:06 PM) [facility]
[2017-03-21] MEDS ORDERED: KETOROLAC 30 MG/ML INJ. IV ONE (22:15)
[2017-03-21] MEDS ORDERED: ONDANSETRON PF 4 MG/2 ML VIAL. IV PRN (23:15)
--- NOTE | 2017-03-21 23:23 | PHYS DOC ---
Past Medical History Past Medical History: Asthma, COPD, Diabetes-Type II, High Cholesterol, Hypertension, Pneumonia, Other Additional Past Medical Histor: Lupus Past Surgical History: Hysterectomy, Other Additional Past Surgical Histo: chest tube for pneumonia Alcohol Use: Occasionally Drug Use: None Adult General Chief Complaint Chief Complaint: GI PROBLEM HPI HPI 46-year-old -British female with a history of one half pack a day smoking, hypertension, high cholesterol, diabetes, no prior cardiac history now presents to the emergency department complaining of chest pain. Patient states she's had burning chest pain intermittently recently. She states this has been exertional but sometimes worse with eating. She also describes some mild nausea and occasional shortness of breath associated with it. This is been going on for days. Patient states she has some mild epigastric and right upper quadrant discomfort which is intermittent now resolved. She does not appear in with movement in her chest wall is nontender. She has no productive cough or fever. Chest pain is not reproducible with palpation. She has never had a stress test or cardiac catheterization. 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 and denies ever having been admitted for evaluation of chest pain Review of Systems Review of Systems Constitutional: Denies fever or chills [] Eyes: Denies change in visual acuity, redness, or eye pain [] HENT: Denies nasal congestion or sore throat [] Respiratory: Denies cough or shortness of breath [] Cardiovascular: No additional information not addressed in HPI [] GI: Denies abdominal pain, nausea, vomiting, bloody stools or diarrhea [] : Denies dysuria or hematuria [] Musculoskeletal: Denies back pain or joint pain [] Integument: Denies rash or skin lesions [] Neurologic: Denies headache, focal weakness or sensory changes [] Endocrine: Denies polyuria or polydipsia [] Current Medications Current Medications Current Medications Medications (Trade) Dose Ordered Sig/Nona Start Time Stop Time Status Last Admin Dose Admin Aspirin (Children'S Aspirin) 324 mg 1X ONCE 03/21/17 23:30 03/21/17 23:31 Ketorolac Tromethamine (Toradol) 30 mg 1X ONCE 03/21/17 22:15 03/21/17 22:16 DC 03/21/17 21:58 30 MG Multi-Ingredient Mouthwash/Gargle (Gi Cocktail Single Dose) 15 ml 1X ONCE 03/21/17 20:45 03/21/17 20:47 DC 03/21/17 20:53 15 ML Sodium Chloride 1,000 ml @ 125 mls/hr 1X ONCE 03/21/17 20:45 03/22/17 04:44 03/21/17 20:53 125 MLS/HR Allergies Allergies Allergies Coded Allergies Type Severity Reaction Last Updated Verified lisinopril Allergy Intermediate COUGH 04/21/16 Yes I S O L A T I O N *CONTACT* Allergy Unknown 04/21/16 Yes Physical Exam Physical Exam Well-appearing patient no acute distress clear lungs regular rate and rhythm nontender chest wall no skin changes minimal epigastric and right upper quadrant tenderness but no guarding or rebound remainder of abdomen is benign with normal bowel sounds no mass or megaly. Normal extremities Constitutional: Well developed, well nourished, no acute distress, non-toxic appearance. [] HENT: Normocephalic, atraumatic, bilateral external ears normal, oropharynx moist, no oral exudates, nose normal. [] Eyes: PERRLA, EOMI, conjunctiva normal, no discharge. [] Neck: Normal range of motion, no tenderness, supple, no stridor. [] Cardiovascular:Heart rate regular rhythm, no murmur [] Lungs & Thorax: Bilateral breath sounds clear to auscultation [] Abdomen: Bowel sounds normal, soft, no tenderness, no masses, no pulsatile masses. [] Skin: Warm, dry, no erythema, no rash. [] Back: No tenderness, no CVA tenderness. [] Extremities: No tenderness, no cyanosis, no clubbing, ROM intact, no edema. [] Neurologic: Alert and oriented X 3, normal motor function, normal sensory function, no focal deficits noted. [] Psychologic: Affect normal, judgement normal, mood normal. [] Current Patient Data Vital Signs Vital Signs Date Time Temp Pulse Resp B/P (MAP) Pulse Ox O2 Delivery O2 Flow Rate FiO2 03/21/17 22:30 98 18 167/87 (113) 97 Room Air 03/21/17 20:25 98.4 98.4 Lab Values Laboratory Tests Test 03/21/17 20:40 White Blood Count 13.0 x10^3/uL (4.0-11.0) H Red Blood Count 4.09 x10^6/uL (3.50-5.40) Hemoglobin 12.7 g/dL (12.0-15.5) Hematocrit 37.4 % (36.0-47.0) Mean Corpuscular Volume 91 fL (79-100) Mean Corpuscular Hemoglobin 31 pg (25-35) Mean Corpuscular Hemoglobin Concent 34 g/dL (31-37) Red Cell Distribution Width 14.4 % (11.5-14.5) Platelet Count 556 x10^3/uL (140-400) H Neutrophils (%) (Auto) 78 % (31-73) H Lymphocytes (%) (Auto) 16 % (24-48) L Monocytes (%) (Auto) 4 % (0-9) Eosinophils (%) (Auto) 1 % (0-3) Basophils (%) (Auto) 0 % (0-3) Neutrophils # (Auto) 10.2 x10^3uL (1.8-7.7) H Lymphocytes # (Auto) 2.1 x10^3/uL (1.0-4.8) Monocytes # (Auto) 0.6 x10^3/uL (0.0-1.1) Eosinophils # (Auto) 0.1 x10^3/uL (0.0-0.7) Basophils # (Auto) 0.0 x10^3/uL (0.0-0.2) Sodium Level 140 mmol/L (136-145) Potassium Level 3.4 mmol/L (3.5-5.1) L Chloride Level 102 mmol/L (98-107) Carbon Dioxide Level 30 mmol/L (21-32) Anion Gap 8 (6-14) Blood Urea Nitrogen 6 mg/dL (7-20) L Creatinine 1.0 mg/dL (0.6-1.0) Estimated GFR (Cockcroft-Gault) 72.5 BUN/Creatinine Ratio 6 (6-20) Glucose Level 96 mg/dL (70-99) Calcium Level 8.9 mg/dL (8.5-10.1) Total Bilirubin 0.4 mg/dL (0.2-1.0) Aspartate Amino Transferase (AST) 22 U/L (15-37) Alanine Aminotransferase (ALT) 42 U/L (14-59) Alkaline Phosphatase 77 U/L (46-116) Troponin I Quantitative < 0.017 ng/mL (0.000-0.055) Total Protein 7.4 g/dL (6.4-8.2) Albumin 3.1 g/dL (3.4-5.0) L Albumin/Globulin Ratio 0.7 (1.0-1.7) L Lipase 154 U/L (73-393) Laboratory Tests 03/21/17 20:40 Laboratory Tests 03/21/17 20:40 EKG EKG EKG with normal sinus rhythm at 100 left axis deviation no STEMI interpreted by me[] Radiology/Procedures Radiology/Procedures Chest x-ray chronic changes no acute disease interpreted by me[] Course & Med Decision Making Course & Med Decision Making Pertinent Labs and Imaging studies reviewed. (See chart for details) Signs and symptoms consistent with chest pain a possible cardiac etiology in a patient with all cardiac risk factors except family history versus possible GI etiology. Patient is a diabetic however she has only trace right upper quadrant and epigastric tenderness. Abdominal labs as well as ultrasound right upper quadrant unremarkable. Patient is comfortable on initial evaluation with no active chest pain. Negative GI workup. Aspirin given. Patient does report an exertional element to her chest discomfort over the last several days and she's never had a prior cardiac workup. Results unremarkable in ED. Case discussed with Dr. Herrera on-call for patient's primary care doctor. Dr. Ferrer is aware the history and findings and agrees with inpatient admission to a telemetry bed for further workup and treatment with consultation to of cardiology Harvey Disclaimer Dragon Disclaimer This electronic medical record was generated, in whole or in part, using a voice recognition dictation system. Departure Departure Impression: Primary Impression: Chest pain Disposition: ADMITTED INPATIENT Admitting Physician: Richmond Ferrer Condition: STABLE Referrals: ALLIE MARES MD (PCP) KELLEN GARDNER MD Mar 21, 2017 23:23
[2017-03-21] MEDS: MORPHINE SULFATE 2 MG/ML DISP.SYRIN. IV PRN (23:29)
[2017-03-21] MEDS ORDERED: ASPIRIN CHEWABLE 81 MG TABLET. PO ONE (23:30)
[2017-03-22] VITALS (7 sets, daily range): BP systolic 112–154; BP diastolic 79–103
[2017-03-22] MEDS: MORPHINE SULFATE 2 MG/ML DISP.SYRIN. IV PRN ×4 (01:55→14:53)
--- NOTE | 2017-03-22 06:16 | EKG ---
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
[2017-03-22 06:31] LABS: BARBITURATES NEG (NEG); BENZODIAZEPINES NEG (NEG); CANNABINOIDS NEG (NEG); METHADONE NEG (NEG); OPIATES POS (NEG); PHENCYCLIDINE NEG (NEG)
[2017-03-22 06:38] LABS: COCAINE POS (NEG)
--- NOTE | 2017-03-22 07:48 | RAD ---
Portable chest, 03/21/2017: History: Chest pain Comparison is made to a study from 03/12/2017. The heart size and pulmonary vascularity are normal. No pulmonary infiltrate is seen. There is unchanged blunting of the right lateral costophrenic angle, probably due to scarring. Degenerative changes are again noted at both shoulders. IMPRESSION: No acute cardiopulmonary abnormality is detected.
[2017-03-22] MEDS ORDERED: PNEUMOC CONJ VACC 23-VALENT 0.5 ML VIAL. VAX IM ONE (09:00)
[2017-03-22] MEDS ORDERED: POTASSIUM CHLORIDE 20 MEQ TABLET.ER. PO ONE (09:45)
[2017-03-22] MEDS ORDERED: CYCLOBENZAPRINE 10 MG TABLET. PO PRN (09:45)
[2017-03-22] MEDS ORDERED: ARIPiprazole 5 MG TABLET PO PRN (09:45)
--- NOTE | 2017-03-22 10:57 | PDOC2 ---
CARDIAC CONSULT DATE OF CONSULT Date of Consult DATE: 03/22/17 TIME: 10:47 REASON FOR CONSULT Reason for Consult: Chest pain REFERRING PHYSICIAN Referring Physician: Andrew SOURCE Source: Chart review, Patient HISTORY OF PRESENT ILLNESS HISTORY OF PRESENT ILLNESS This is a pleasant 46 yo AA female admitted for complains of chest burning. This isolated to the epigastric region which then spreads upward. This is not associated with vomiting, dizziness, palpitations, or SOA. She continues to smoke tobacco but verbalized her COPD is under control and no wheezing. Reports that in the last week she has tried tums, prilosec and pepto bismol and her chest burning seemed to continue without relief and worse with food. Verbalized compliance with her routine home medications. She does however uses cocaine and she snorts this. Her last use was about a month ago although she is positive on the tox screen this time. Denies any black stool or hematemesis. PAST MEDICAL HISTORY Past Medical History Cardiovascular: HTN, Hyperlipidemia, Mobitz type 1 mainly due to lyte issue from last admission Pulmonary: Asthma, COPD CENTRAL NERVOUS SYSTEM: Migraine Heme/Onc: Anemia NOS, Other (thrombocytosis) Hepatobiliary: hepatomegaly Psych: Anxiety, Depression Musculoskeletal: low back pain, Osteoarthritis, Other (lupus) Rheumatologic: No pertinent hx, Gout Infectious disease: No pertinent hx ENT: Allergic Rhinitis Renal/: Chronic renal insuff (CKD2) Endocrine: Diabetes Dermatology: No pertinent hx Grav: 7 Para: 4 PAST SURGICAL HISTORY Past Surgical History Tubal Ligation, Hysterectomy, Other (partial right lung resection) FAMILY HISTORY Family History: Diabetes (mother) SOCIAL HISTORY Social History Smoke: <1 pack per day ALCOHOL: none Drugs: cocaine Lives: with Family CURRENT MEDICATIONS CURRENT MEDICATIONS Current Medications Medications (Trade) Dose Ordered Sig/Nona Route PRN Reason Start Time Stop Time Status Last Admin Dose Admin Sodium Chloride 1,000 ml @ 125 mls/hr 1X ONCE IV 03/21/17 20:45 03/22/17 04:44 DC 03/21/17 20:53 Multi-Ingredient Mouthwash/Gargle (Gi Cocktail Single Dose) 15 ml 1X ONCE SWSW 03/21/17 20:45 03/21/17 20:47 DC 03/21/17 20:53 Ketorolac Tromethamine (Toradol) 30 mg 1X ONCE IV 03/21/17 22:15 03/21/17 22:16 DC 03/21/17 21:58 Aspirin (Children'S Aspirin) 324 mg 1X ONCE PO 03/21/17 23:30 03/21/17 23:31 DC 03/21/17 23:29 Ondansetron HCl (Zofran) 4 mg PRN Q8HRS PRN IV NAUSEA/VOMITING 03/21/17 23:15 03/22/17 23:14 03/21/17 23:29 Morphine Sulfate 2 mg PRN Q2HR PRN IV SEVERE PAIN 03/21/17 23:15 03/22/17 23:14 03/22/17 09:46 ALLERGIES ALLERGIES: Coded Allergies: lisinopril (Verified Allergy, Intermediate, COUGH, 04/21/16) I S O L A T I O N *CONTACT* (Verified Allergy, Unknown, 04/21/16) mrsa + ROS Review of System 14 point ROS evaluated with pertinent positives noted per HPI PHYSICAL EXAM General: Alert, Oriented X3, Cooperative, No acute distress HEENT: Atraumatic, Mucous membr. moist/pink Lungs: Clear to auscultation, Normal air movement Heart: Regular rate, Normal S1, Normal S2, No murmurs Abdomen: Soft, No tenderness Extremities: No cyanosis, No edema Skin: No breakdown, No significant lesion Neuro: Normal speech, Sensation intact Psych/Mental Status: Mental status NL, Mood NL MUSCULOSKELETAL: Osteoarthritic changes both hands VITALS VITALS Vital Signs Date Time Temp Pulse Resp B/P (MAP) Pulse Ox O2 Delivery O2 Flow Rate FiO2 03/22/17 09:46 20 93 Room Air 03/22/17 07:00 97.9 93 153/84 (107) 97.9 LABS Lab: Laboratory Tests Test 03/21/17 20:40 03/22/17 04:14 03/22/17 06:00 03/22/17 07:35 White Blood Count 13.0 x10^3/uL (4.0-11.0) Red Blood Count 4.09 x10^6/uL (3.50-5.40) Hemoglobin 12.7 g/dL (12.0-15.5) Hematocrit 37.4 % (36.0-47.0) Mean Corpuscular Volume 91 fL (79-100) Mean Corpuscular Hemoglobin 31 pg (25-35) Mean Corpuscular Hemoglobin Concent 34 g/dL (31-37) Red Cell Distribution Width 14.4 % (11.5-14.5) Platelet Count 556 x10^3/uL (140-400) Neutrophils (%) (Auto) 78 % (31-73) Lymphocytes (%) (Auto) 16 % (24-48) Monocytes (%) (Auto) 4 % (0-9) Eosinophils (%) (Auto) 1 % (0-3) Basophils (%) (Auto) 0 % (0-3) Neutrophils # (Auto) 10.2 x10^3uL (1.8-7.7) Lymphocytes # (Auto) 2.1 x10^3/uL (1.0-4.8) Monocytes # (Auto) 0.6 x10^3/uL (0.0-1.1) Eosinophils # (Auto) 0.1 x10^3/uL (0.0-0.7) Basophils # (Auto) 0.0 x10^3/uL (0.0-0.2) Sodium Level 140 mmol/L (136-145) Potassium Level 3.4 mmol/L (3.5-5.1) Chloride Level 102 mmol/L (98-107) Carbon Dioxide Level 30 mmol/L (21-32) Anion Gap 8 (6-14) Blood Urea Nitrogen 6 mg/dL (7-20) Creatinine 1.0 mg/dL (0.6-1.0) Estimated GFR (Cockcroft-Gault) 72.5 BUN/Creatinine Ratio 6 (6-20) Glucose Level 96 mg/dL (70-99) Calcium Level 8.9 mg/dL (8.5-10.1) Total Bilirubin 0.4 mg/dL (0.2-1.0) Aspartate Amino Transf (AST/SGOT) 22 U/L (15-37) Alanine Aminotransferase (ALT/SGPT) 42 U/L (14-59) Alkaline Phosphatase 77 U/L (46-116) Troponin I Quantitative < 0.017 ng/mL (0.000-0.055) < 0.017 ng/mL (0.000-0.055) Total Protein 7.4 g/dL (6.4-8.2) Albumin 3.1 g/dL (3.4-5.0) Albumin/Globulin Ratio 0.7 (1.0-1.7) Lipase 154 U/L (73-393) Urine Opiates Screen Pos (NEG) Urine Methadone Screen Neg (NEG) Urine Barbiturates Neg (NEG) Urine Phencyclidine Screen Neg (NEG) Urine Amphetamine/Methamphetamine Neg (NEG) Urine Benzodiazepines Screen Neg (NEG) Urine Cocaine Screen Pos (NEG) Urine Cannabinoids Screen Neg (NEG) Urine Ethyl Alcohol Neg (NEG) Glucose (Fingerstick) 105 mg/dL (70-99) Test 03/22/17 10:23 Glucose (Fingerstick) 89 mg/dL (70-99) ECHOCARDIOGRAM ECHOCARDIOGRAM <Conclusion> The left ventricle is normal size. Left ventricle systolic function is normal. The Ejection Fraction is 60-65%. There is mild to moderate concentric left ventricular hypertrophy. There is no significant aortic valvular stenosis. Doppler and Color Flow revealed no significant aortic regurgitation. Doppler and Color Flow revealed no mitral valve regurgitation noted. Doppler and Color Flow revealed trace tricuspid regurgitation. The PA pressure was estimated at 29 mmHg. DATE: 01/10/17 1732 STRESS TEST STRESS TEST Conclusion 1. No evidence of stress induced EKG changes. 2. Normal perfusion at stress/rest. 3. Normal EF at > 70% 4. Low risk study. DATE: 01/10/17 1649 ASSESSMENT/PLAN ASSESSMENT/PLAN 1. Atypical CP: recent MPI and TTE unremarkable for significant changes. Noncardiac. Suspect GI 2. HTN; labile 3. DM2/HLP: TG elevated in the past. May need fibrate, defer to PCP 4. COPD 5. Hypokalemia: per PCP 6. Hx of lupus/TIA 7. Substance abuse with tobaccoism: +cocaine Recommendations 1. Recent cardiac workup unremarkable. This is atypical CP likely from GERD exacerbation but cocaine would be contributing as well. Discussed treatment compliance and cessation of tobacco and cocaine use. 2. Continue home BP med regimen. TG elevated in the past, will need fibrate, defer to PCP 3. BMP, Mg today, lipids 4. No further cardiac workup. Will follow as needed. 5. Discussed with PCP and will consult GI. 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
[2017-03-22] MEDS: ALBUTEROL SULFATE 2.5 MG/3 ML NEBU. NEB SCH ×3 (11:05→19:49)
[2017-03-22 11:23] LABS: CALCIUM 9.2 mg/dL (8.5-10.1); CREATININE 0.9 mg/dL (0.6-1.0); GFR 81.9; MAGNESIUM 2.1 mg/dL (1.8-2.4); POTASSIUM 4.5 mmol/L (3.5-5.1)
[2017-03-22 11:52] LABS: CHOLESTEROL/HDL RATIO 4.7
--- NOTE | 2017-03-22 12:19 | PDOC2 ---
GI CONSULT Reason For Consult: GERD exacerbation HPI: HPI: 46 y/o female admitted through ER. Reports 1 week of burning central chest and epigastric pain w/o precipitating events. Cardiology has seen, feels possibly related to GI issue. Says burning is initially worse when begins to eat and drink but then gets better; however, has not eaten much in 4 days. Perhaps radiates to RUQ some. Tried Pepto-Bismol, Pepcid, and Tums w/o relief. Was also given GI cocktail here, says didn't help. Denies h/o reflux, heartburn, or indigestion. No odynophagia or dysphagia. No n/v. No early satiety or bloating. No diarrhea or constipation. No hematochezia or melena. No NSAID use. 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 Takes hydrocodone regularly for headaches. Believes had an EGD in [place] years ago, does not recall significant findings. No previous colonoscopy. No past liver, gallbladder, or pancreas problems. Feels hungry now, wants to eat. WBC 13, plt 556. Tox screen +opiates and cocaine. Normal Hgb and LFTs. RUQ US w/ mild hepatomegaly and normal gallbladder. Previous cardiology eval as below. PMH: PMH: HTN, HLD, asthma/COPD, pneumonia, migraines, depression, OA, lupus, allergic rhinitis, DM, hysterectomy w/ BSO, tubal ligation FH: Family History: No pertinent hx (denies GI cancers) Social History: Smoke: <1 pack per day ALCOHOL: occassional Drugs: Cocaine ROS: GEN: Denies fevers, chills, sweats HEENT: Denies blurred vision, sore throat CV: "burning" chest pain RESP: cough GI: Per HPI : Denies hematuria, dysuria ENDO: Denies weight changes NEURO: migraines MSK: Denies weakness, joint pain/swelling SKIN: Denies jaundice, pruritus Vitals: Vitals: Vital Signs Date Time Temp Pulse Resp B/P (MAP) Pulse Ox O2 Delivery O2 Flow Rate FiO2 03/22/17 11:15 99 Room Air 03/22/17 10:50 97.9 91 20 140/95 (110) 97.9 Labs: Labs: Laboratory Tests Test 03/21/17 20:40 03/22/17 04:14 03/22/17 06:00 03/22/17 07:35 White Blood Count 13.0 x10^3/uL (4.0-11.0) Red Blood Count 4.09 x10^6/uL (3.50-5.40) Hemoglobin 12.7 g/dL (12.0-15.5) Hematocrit 37.4 % (36.0-47.0) Mean Corpuscular Volume 91 fL (79-100) Mean Corpuscular Hemoglobin 31 pg (25-35) Mean Corpuscular Hemoglobin Concent 34 g/dL (31-37) Red Cell Distribution Width 14.4 % (11.5-14.5) Platelet Count 556 x10^3/uL (140-400) Neutrophils (%) (Auto) 78 % (31-73) Lymphocytes (%) (Auto) 16 % (24-48) Monocytes (%) (Auto) 4 % (0-9) Eosinophils (%) (Auto) 1 % (0-3) Basophils (%) (Auto) 0 % (0-3) Neutrophils # (Auto) 10.2 x10^3uL (1.8-7.7) Lymphocytes # (Auto) 2.1 x10^3/uL (1.0-4.8) Monocytes # (Auto) 0.6 x10^3/uL (0.0-1.1) Eosinophils # (Auto) 0.1 x10^3/uL (0.0-0.7) Basophils # (Auto) 0.0 x10^3/uL (0.0-0.2) Sodium Level 140 mmol/L (136-145) Potassium Level 3.4 mmol/L (3.5-5.1) Chloride Level 102 mmol/L (98-107) Carbon Dioxide Level 30 mmol/L (21-32) Anion Gap 8 (6-14) Blood Urea Nitrogen 6 mg/dL (7-20) Creatinine 1.0 mg/dL (0.6-1.0) Estimated GFR (Cockcroft-Gault) 72.5 BUN/Creatinine Ratio 6 (6-20) Glucose Level 96 mg/dL (70-99) Calcium Level 8.9 mg/dL (8.5-10.1) Total Bilirubin 0.4 mg/dL (0.2-1.0) Aspartate Amino Transf (AST/SGOT) 22 U/L (15-37) Alanine Aminotransferase (ALT/SGPT) 42 U/L (14-59) Alkaline Phosphatase 77 U/L (46-116) Troponin I Quantitative < 0.017 ng/mL (0.000-0.055) < 0.017 ng/mL (0.000-0.055) Total Protein 7.4 g/dL (6.4-8.2) Albumin 3.1 g/dL (3.4-5.0) Albumin/Globulin Ratio 0.7 (1.0-1.7) Lipase 154 U/L (73-393) Triglycerides Level 397 mg/dL (0-150) Cholesterol Level 224 mg/dL (0-200) LDL Cholesterol, Calculated 97 mg/dL (0-100) VLDL Cholesterol, Calculated 79 mg/dL (0-40) Non-HDL Cholesterol Calculated 176 mg/dL (0-129) HDL Cholesterol 48 mg/dL (40-60) Cholesterol/HDL Ratio 4.7 Urine Opiates Screen Pos (NEG) Urine Methadone Screen Neg (NEG) Urine Barbiturates Neg (NEG) Urine Phencyclidine Screen Neg (NEG) Urine Amphetamine/Methamphetamine Neg (NEG) Urine Benzodiazepines Screen Neg (NEG) Urine Cocaine Screen Pos (NEG) Urine Cannabinoids Screen Neg (NEG) Urine Ethyl Alcohol Neg (NEG) Glucose (Fingerstick) 105 mg/dL (70-99) Test 03/22/17 10:23 03/22/17 10:50 Glucose (Fingerstick) 89 mg/dL (70-99) Sodium Level 138 mmol/L (136-145) Potassium Level 4.5 mmol/L (3.5-5.1) Chloride Level 102 mmol/L (98-107) Carbon Dioxide Level 29 mmol/L (21-32) Anion Gap 7 (6-14) Blood Urea Nitrogen 10 mg/dL (7-20) Creatinine 0.9 mg/dL (0.6-1.0) Estimated GFR (Cockcroft-Gault) 81.9 Glucose Level 93 mg/dL (70-99) Calcium Level 9.2 mg/dL (8.5-10.1) Magnesium Level 2.1 mg/dL (1.8-2.4) Troponin I Quantitative < 0.017 ng/mL (0.000-0.055) Thyroid Stimulating Hormone (TSH) 1.486 uIU/mL (0.358-3.74) Allergies: Coded Allergies: lisinopril (Verified Allergy, Intermediate, COUGH, 04/21/16) I S O L A T I O N *CONTACT* (Verified Allergy, Unknown, 04/21/16) mrsa + Medications: Current Medications Medications (Trade) Dose Ordered Sig/Nona Route PRN Reason Start Time Stop Time Status Last Admin Dose Admin Sodium Chloride 1,000 ml @ 125 mls/hr 1X ONCE IV 03/21/17 20:45 03/22/17 04:44 DC 03/21/17 20:53 Multi-Ingredient Mouthwash/Gargle (Gi Cocktail Single Dose) 15 ml 1X ONCE SWSW 03/21/17 20:45 03/21/17 20:47 DC 03/21/17 20:53 Ketorolac Tromethamine (Toradol) 30 mg 1X ONCE IV 03/21/17 22:15 03/21/17 22:16 DC 03/21/17 21:58 Aspirin (Children'S Aspirin) 324 mg 1X ONCE PO 03/21/17 23:30 03/21/17 23:31 DC 03/21/17 23:29 Ondansetron HCl (Zofran) 4 mg PRN Q8HRS PRN IV NAUSEA/VOMITING 03/21/17 23:15 03/22/17 23:14 03/21/17 23:29 Morphine Sulfate 2 mg PRN Q2HR PRN IV SEVERE PAIN 03/21/17 23:15 03/22/17 23:14 03/22/17 09:46 Albuterol Sulfate (Ventolin Neb Soln) 2.5 mg RTQID NEB 03/22/17 12:00 03/22/17 11:05 Imaging: Imaging: CXR 03/21/17 IMPRESSION: No acute cardiopulmonary abnormality is detected. Ltd Abd US 03/21/17 Findings: There is segmental visualization of the inferior vena cava. No focal abnormality is demonstrated of the visualized pancreas. Common bile duct is within normal limits at 0.4 cm. Hepatic echotexture is within normal limits, no focal hepatic lesion demonstrated. Right lobe of liver is somewhat prominent 19.2 cm longitudinal. There is demonstrable flow in the main portal vein. Right kidney measured 10.5 x 4.4 x 4.4 cm, no hydronephrosis. Gallbladder is present without intraluminal abnormality, wall thickening, pericholecystic fluid. Common bile duct is within normal limits at 0.5 cm. No free fluid is demonstrated. Impression: 1. Other than mild hepatomegaly, no abnormality is demonstrated. MPI 01/09/17 Conclusion 1. No evidence of stress induced EKG changes. 2. Normal perfusion at stress/rest. 3. Normal EF at > 70% 4. Low risk study. Echocardiogram 01/10/17 <Conclusion> The left ventricle is normal size. Left ventricle systolic function is normal. The Ejection Fraction is 60-65%. There is mild to moderate concentric left ventricular hypertrophy. There is no significant aortic valvular stenosis. Doppler and Color Flow revealed no significant aortic regurgitation. Doppler and Color Flow revealed no mitral valve regurgitation noted. Doppler and Color Flow revealed trace tricuspid regurgitation. The PA pressure was estimated at 29 mmHg. PE: GEN: NAD HEENT: Atraumatic, PERRL LUNGS: CTAB, +deep cough HEART: RRR ABD: NABS, S/ND, epigastric discomfort toward sternum and some to RUQ - actually seems above rib EXTREMITY: No edema SKIN: No rashes, no jaundice NEURO/PSYCH: A & O 3 A/P: A/P: Burning chest and epigastric pain, right rib tenderness on exam -cardiology has seen, no further workup recommended -unclear if PO intake aggravates or alleviates symptoms -no h/o GERD symptoms (but believes had EGD years ago), tried Tums and Pepcid at home w/o relief, also no help from GI cocktail here -previously on prednisone for lupus -RUQ US w/ normal gallbladder Substance abuse -- Will review w/ Dr. Smith. Will start empiric PPI. Seems okay to try eating. ALEXANDER GARDNER Mar 22, 2017 12:18
[2017-03-22] MEDS: hydroCHLOROthiazide 25 MG TABLET PO SCH (12:56)
[2017-03-22] MEDS: MULTIVITAMIN with MINERAL TABLET. PO SCH (12:56)
[2017-03-22] MEDS: CETIRIZINE HCL 10 MG TABLET. PO SCH (12:56)
[2017-03-22] MEDS: PANTOPRAZOLE 40 MG TABLET.DR. PO SCH (12:56)
[2017-03-22] MEDS: amLODIPine BESYLATE 10 MG TABLET PO SCH (12:57)
[2017-03-22] MEDS: FLUTICASONE 50MCG/NASAL SPRAY 16GM BOTTLE. NS SCH (12:58)
[2017-03-22] MEDS: LOSARTAN POTASSIUM 50 MG TABLET. PO SCH (12:58)
[2017-03-22] MEDS: LIDO:MAALOX:DONNATAL 1:1:1 15 ML SINGLE DOSE SWSW PRN ×2 (14:52→22:39)
--- NOTE | 2017-03-22 16:42 | PDOC ---
Provider Note Provider Note Admitted for chest pain, cardiology not planning any tests and her pain is epigastric so GI seeing and having EGD tomorrow. Pain currently uncontrolled, PPI started but also needing Morphine. UDS positive again for cocaine, SS to see regarding tx programs. Full report dictated Bernie ANTHONY MD Mar 22, 2017 16:42
[2017-03-22] MEDS: metFORMIN 500 MG TABLET PO SCH (17:20)
[2017-03-22] MEDS: POTASSIUM CL 20MEQ D5-0.45NACL 1,000 ML IV SCH (17:21)
--- NOTE | 2017-03-22 17:47 | HP ---
ADMIT DATE: 03/22/2017 ADMISSION DIAGNOSIS: Chest pain. HISTORY OF PRESENT ILLNESS: A 46-year-old female who I saw in December for a similar episode of chest pain, had a cardiac workup at that time including a stress test that was unremarkable. She presented to the Emergency Room yesterday with a burning intermittent chest pain. It was at the lower end of her sternum epigastric area and has been going on for days. She has had some chronic cough and congestion. Emergency Room doctor was misinformed when he felt she had not had a prior cardiac workup and admitted her for one. She was seen in cardiac consultation without any further cardiac tests recommended. Because her tenderness was epigastric and right upper quadrant, GI was consulted. She is scheduled for an EGD tomorrow. She does admit to some occasional nonsteroidal anti-inflammatory drug use. She denies alcohol use. She does have a urine drug screen positive for cocaine, but in the past has not admitted to its use. She normally sees Dr. Biswas in the office; she was seen in January for wellness exam. She had improved from her chest pain from December after being treated for bronchitis. She is wanting a refill then on her pain medication for arthritis. PAST MEDICAL HISTORY: Significant for hyperlipidemia, prediabetes, chronic kidney disease stage 2, thrombocytosis, history of thyroid issues, history of anemia secondary to fibroids, but is status post hysterectomy; history of migraines, hypertension, chronic back pain, lupus, chronic obstructive pulmonary disease/asthma, gout, depression/anxiety, tobaccoism. PAST SURGICAL HISTORY: Tubal approximately 20 years ago, laparoscopic hysterectomy 04/2016 and she has had a prior lung surgery for PNA. FAMILY HISTORY: Mother is alive with diabetes, asthma, hypertension. Father is . Brother has asthma. SOCIAL HISTORY: She is a current smoker. She is not abusing alcohol. She occasionally uses cocaine. She is unemployed and lives with her fiance. OBSTETRIC HISTORY: . ALLERGIES: She has no known drug allergies. HOME MEDICATIONS: Include albuterol inhaler 2 puffs q.4h. p.r.n., iron sulfate 325 mg daily, hydralazine 50 mg q.i.d., sumatriptan 50 mg daily p.r.n. migraine, loratadine 10 mg daily, losartan 50 mg b.i.d., metformin 500 mg b.i.d., a multivitamin daily, Premarin 1.25 mg, amlodipine 10 mg daily, simvastatin I believe has been stopped due to interaction with that, Zofran 4 mg p.r.n. nausea and vomiting, potassium chloride 20 mEq daily, Symbicort 160/4.5 two puffs b.i.d., colchicine 0.6 mg p.r.n. gout, fluticasone nasal spray daily, and atorvastatin 20 mg at bedtime. She also lists Abilify 5 mg daily p.r.n. anxiety, cyclobenzaprine 5 mg at bedtime p.r.n. muscle spasm, hydrochlorothiazide 25 mg daily, hydrocodone/APAP 7.5/325 q.6 hours p.r.n. pain. REVIEW OF SYSTEMS: CONSTITUTIONAL: Chronic nasal congestion. She has glasses. No sore throat. No earache. CARDIAC: Chest pain as above. PULMONARY: She got over her bronchitis. GASTROINTESTINAL: Epigastric area pain and right upper quadrant pain. GENITOURINARY: No dysuria. She has had a hysterectomy. MUSCULOSKELETAL: Chronic joint and back pain. SKIN: No acute lesions. PSYCHIATRIC: No depression. NEUROLOGICAL: History of migraines. PHYSICAL EXAMINATION: GENERAL: She is in no acute distress. VITAL SIGNS: Stable. She is afebrile, pulse is in the 90s, respiratory rate 20, blood pressure 130/82, room air oxygen saturation 100%. HEENT: She has a little bit of nasal congestion. She is wearing glasses. Her conjunctivae are clear. Mucous membranes are moist. NECK: Supple. HEART: Regular rate and rhythm. LUNGS: Clear anteriorly. ABDOMEN: There is some epigastric area discomfort. No masses. Bowel sounds are present. No distention. EXTREMITIES: Without clubbing, cyanosis, or edema. NEUROLOGICAL: No focal weakness. She is alert and oriented. PSYCHIATRIC: Her mood is normal. She is not anxious. LABORATORY DATA: Her white count was 13, hemoglobin 12.7. Chemistries are unremarkable. Glucose has ranged from 89 to 132. Thyroid is normal. Troponins negative. Tox screen positive for opiates and cocaine. Chest x-ray is unremarkable. EKG is nonspecific. Ultrasound of the abdomen shows the common bile duct is within normal limits. Right lobe of the liver is somewhat prominent. Gallbladder is present and appears normal, although there is some wall thickening and there is some pericholecystic fluid. ASSESSMENT: 1. Chest pain. This appears to be noncardiac. 2. Epigastric pain. 3. Gallbladder wall thickening. 4. Cocaine abuse. 5. Hypertension. 6. Asthma/chronic obstructive pulmonary disease. 7. Prediabetes. 8. Hyperlipidemia. PLAN: She is admitted. Cardiology has seen her. No further cardiac test is planned. Gastroenterology is consulted. EGD is planned for tomorrow. If that is unremarkable, she may need a HIDA scan and a possible cholecystectomy. Social Service is consulted for substance abuse treatment programs. Meds are reconciled. Low potassium has been replaced. We will give her some fluids tonight overnight while she will be n.p.o. for her procedure, which is not scheduled till tomorrow afternoon. W Ke ANTHONY MD DR: JANICE/keith JOB#: [id number] / [id number]
[2017-03-22] MEDS: HYDROcodone/APAP 7.5/325MG 1 TAB TABLET PO PRN (19:22)
[2017-03-22] MEDS: BUDESONIDE 0.5 MG/2 ML NEBU. NEB SCH (19:49)
[2017-03-22] MEDS ORDERED: NON FORMULARY ITEM (Budesonide/Formoterol Fumarate (Symbicort 160-4.5 Mcg Inhaler) 2 PUFF) IH SCH (21:00)
[2017-03-22] MEDS ORDERED: ACETAMINOPHEN 500 MG TABLET PO PRN (21:15)
[2017-03-23] MEDS: HYDROcodone/APAP 7.5/325MG 1 TAB TABLET PO PRN ×4 (02:39→21:31)
[2017-03-23 03:00] VITALS: BP 125/74
[2017-03-23] MEDS: LIDO:MAALOX:DONNATAL 1:1:1 15 ML SINGLE DOSE SWSW PRN ×3 (05:34→21:31)
[2017-03-23 07:00] VITALS: BP 109/69
[2017-03-23] MEDS: BUDESONIDE 0.5 MG/2 ML NEBU. NEB SCH ×2 (07:05→19:19)
[2017-03-23] MEDS: ALBUTEROL SULFATE 2.5 MG/3 ML NEBU. NEB SCH ×4 (07:05→19:19)
[2017-03-23] MEDS: PANTOPRAZOLE 40 MG TABLET.DR. PO SCH (07:30)
[2017-03-23] MEDS: metFORMIN 500 MG TABLET PO SCH ×2 (07:30→17:00)
[2017-03-23] MEDS: POTASSIUM CL 20MEQ D5-0.45NACL 1,000 ML IV SCH ×2 (07:35→21:34)
[2017-03-23] MEDS: CETIRIZINE HCL 10 MG TABLET. PO SCH (09:00)
[2017-03-23] MEDS: MULTIVITAMIN with MINERAL TABLET. PO SCH (09:00)
--- NOTE | 2017-03-23 09:10 | PDOC ---
PROGRESS NOTES Subjective No overnight issues, still having epigastric pain, NPO for EGD, hungry, still congested and coughing some Objective Afebrile General: NAD, A&O Heart: RRR Lungs: CTAB Abd: epigastric/RUQ tenderness Ext: no C/C/E Vital Signs Vital Signs Date Time Temp Pulse Resp B/P (MAP) Pulse Ox O2 Delivery O2 Flow Rate FiO2 03/23/17 07:05 97 Room Air 03/23/17 07:00 98.4 94 20 109/69 (82) 98.4 Assessment and Plan 1. Chest pain. This appears to be noncardiac. 2. Epigastric pain - EGD today, PPI started. Probable discharge after EGD. 3. Gallbladder wall thickening, consider surgical consult if EGD normal. 4. Cocaine abuse, data services developer consulted for tx program. 5. Hypertension, stable. 6. Asthma/chronic obstructive pulmonary disease, baseline cough. 7. Prediabetes, A1C 5.8. 8. Hyperlipidemia, TChol 224 but LDL 97, HDL 48, continue meds. Problems: Bernie ANTHONY MD Mar 23, 2017 09:10
[2017-03-23] MEDS: FLUTICASONE 50MCG/NASAL SPRAY 16GM BOTTLE. NS SCH (09:37)
[2017-03-23 11:00] VITALS: BP 118/79
[2017-03-23] MEDS ORDERED: IV RINGERS,LACTATED 1000ML 1,000 ML IV SCH (13:01)
[2017-03-23] MEDS: IV NORMAL SALINE 1000ML BAG 1,000 ML IV SCH ×2 (13:08→21:08)
[2017-03-23] MEDS ORDERED: LIDOCAINE 1% PF 2 ML VIAL. ID PRN (13:15)
[2017-03-23] MEDS ORDERED: MIDAZOLAM HCL/PF 2 MG/2 ML VIAL. IV PRN (13:15)
[2017-03-23] MEDS ORDERED: fentaNYL PF VIAL 100 MCG/2 ML VIAL IV PRN ×2 (13:15)
[2017-03-23] MEDS ORDERED: 0.9 % SODIUM CHLORIDE 10 ML DISP.SYRIN. ID PRN (13:15)
[2017-03-23] MEDS ORDERED: PROPOFOL 20 ML IV ONE (13:16)
--- NOTE | 2017-03-23 13:41 | PDOC4 ---
PROCEDURE Procedure EGD/biopsies Indication: NCCP, odynophagia Meds: per anesthesia Findings: E--Mild resistance at cricopharyngeus; passed with mild pressure. On w/drawal, short mucosal rent c/w dilated web. Rest of esophagus with widespread exudate/ friability. Numerous "diverticuli" seen throughout. Biopsies from lower and upper esophagus. Did not appear to be purely a reflux-related process. G--Tiny prepyloric ulcer/erosion. Biopsies of antrum. D--Normal to second portion. Rodolfo. well. IMP: 1. Appearance of esophagus suggestive of "pseudodiverticulosis" of esophagus. Frequently associated with Ivy infection. 2. Proximal esophageal web, dilated with scope. 3. Tiny prepyloric ulcer. REC: Await biopsies. Nystatin suspension. Continue acid suppressant. Barium swallow to confirm pseudodiverticulosis. Thanks. KELLEN BURTON MD Mar 23, 2017 13:41
[2017-03-23 15:00] VITALS: BP 148/87
[2017-03-23] MEDS: amLODIPine BESYLATE 10 MG TABLET PO SCH (15:16)
[2017-03-23] MEDS: LOSARTAN POTASSIUM 50 MG TABLET. PO SCH (15:16)
[2017-03-23] MEDS: hydroCHLOROthiazide 25 MG TABLET PO SCH (15:17)
[2017-03-23] MEDS: NYSTATIN 100,000 UNITS/ML 5 ML ORAL.SUSP. SWSW SCH ×2 (17:01→21:31)
[2017-03-23 19:15] VITALS: BP 112/75
[2017-03-23 23:04] VITALS: BP 126/79
[2017-03-24 03:00] VITALS: BP 105/75
[2017-03-24] MEDS: HYDROcodone/APAP 7.5/325MG 1 TAB TABLET PO PRN ×3 (05:03→22:31)
[2017-03-24] MEDS: LIDO:MAALOX:DONNATAL 1:1:1 15 ML SINGLE DOSE SWSW PRN ×2 (05:04→18:41)
[2017-03-24 07:00] VITALS: BP 119/61
[2017-03-24] MEDS: BUDESONIDE 0.5 MG/2 ML NEBU. NEB SCH ×2 (07:31→19:36)
[2017-03-24] MEDS: ALBUTEROL SULFATE 2.5 MG/3 ML NEBU. NEB SCH ×4 (07:31→19:35)
[2017-03-24] MEDS ORDERED: BARIUM SULFATE 60% 355 ML SUSP PO ONE (07:45)
[2017-03-24] MEDS ORDERED: BARIUM SULFATE 340 GM SUSPENSION. PO ONE (07:45)
[2017-03-24] MEDS: POTASSIUM CL 20MEQ D5-0.45NACL 1,000 ML IV SCH ×2 (08:45→20:38)
[2017-03-24] MEDS: LOSARTAN POTASSIUM 50 MG TABLET. PO SCH (08:52)
[2017-03-24] MEDS: NYSTATIN 100,000 UNITS/ML 5 ML ORAL.SUSP. SWSW SCH ×4 (08:52→20:30)
[2017-03-24] MEDS: amLODIPine BESYLATE 10 MG TABLET PO SCH (08:52)
[2017-03-24] MEDS: hydroCHLOROthiazide 25 MG TABLET PO SCH (08:53)
[2017-03-24] MEDS: metFORMIN 500 MG TABLET PO SCH ×2 (08:53→16:39)
[2017-03-24] MEDS: PANTOPRAZOLE 40 MG TABLET.DR. PO SCH (08:53)
[2017-03-24] MEDS: CETIRIZINE HCL 10 MG TABLET. PO SCH (08:53)
[2017-03-24] MEDS: MULTIVITAMIN with MINERAL TABLET. PO SCH (08:53)
[2017-03-24] MEDS: FLUTICASONE 50MCG/NASAL SPRAY 16GM BOTTLE. NS SCH (09:00)
--- NOTE | 2017-03-24 09:18 | PDOC ---
Subjective: Subjective: Just back from barium swallow. Burning chest pain, nothing really helping, wants to DC today. Objective: Objective: D/w RN - pt c/o nausea, ongoing pain. Vital Signs: Vital Signs Date Time Temp Pulse Resp B/P (MAP) Pulse Ox O2 Delivery O2 Flow Rate FiO2 03/24/17 08:52 92 119/61 03/24/17 07:40 97 Room Air 03/24/17 07:00 98.8 18 98.8 03/23/17 13:35 4 Labs: Laboratory Tests Test 03/23/17 11:37 03/23/17 16:12 03/23/17 20:55 03/24/17 00:56 Glucose (Fingerstick) 123 mg/dL 129 mg/dL 132 mg/dL 133 mg/dL Test 03/24/17 05:19 03/24/17 08:52 Glucose (Fingerstick) 110 mg/dL 108 mg/dL Imaging: EGD 03/23/17 E--Mild resistance at cricopharyngeus; passed with mild pressure. On w/drawal, short mucosal rent c/w dilated web. Rest of esophagus with widespread exudate/ friability. Numerous "diverticuli" seen throughout. Biopsies from lower and upper esophagus. Did not appear to be purely a reflux-related process. G--Tiny prepyloric ulcer/erosion. Biopsies of antrum. D--Normal to second portion. IMP: 1. Appearance of esophagus suggestive of "pseudodiverticulosis" of esophagus. Frequently associated with Ivy infection. 2. Proximal esophageal web, dilated with scope. 3. Tiny prepyloric ulcer. PE: GEN: NAD LUNGS: CTAB HEART: RRR ABD: NABS, S/ND/NT NEURO/PSYCH: A & O 3 A/P: Burning chest pain Pseudodiverticulosis of esophagus, possible Candidiasis - on Nystatin, path pending Proximal esophageal web s/p dilation Prepyloric ulcer (tiny) - on PPI, path pending -- Await barium swallow. Continue Nystatin and PPI. Also has GI cocktail available PRN. ALEXANDER GARDNER Mar 24, 2017 09:18
[2017-03-24 11:00] VITALS: BP 113/60
--- NOTE | 2017-03-24 12:07 | RAD ---
Indication abnormal endoscopy. The esophagus was evaluated. 12 fluoroscopic spot images were obtained. Fluoroscopy time associated with the examination was 1.3 minutes. Initiation of swallowing was normal. There is diffuse mucosal abnormality involving the esophagus with findings compatible with widespread ulceration. There are changes consistent with pseudodiverticulosis. The etiology is not certain but underlying inflammation, likely fungal (candidiasis is often associated with the imaging findings) should be considered. A definite mass is not seen. There is no obstruction. IMPRESSION: Diffuse ulceration with associated findings compatible with pseudodiverticulosis. Fungal etiology should be considered..
--- NOTE | 2017-03-24 13:56 | PATHOLOGY ---
PATHOLOGY REPORT * * * * * * * * FINAL DIAGNOSIS: A. Gastric biopsy, antrum: - Chronic gastritis, mild to moderate. B. Esophageal biopsy, lower esophagus: - Segments of acute inflammatory exudate and few minute strips of gastric foveolar epithelium, consistent with ulcer. C. Esophageal biopsy, upper esophagus: - Segments of acute inflammatory exudate and hyperplastic squamous esophageal mucosa with intraepithelial neutrophils, consistent with ulcerative esophagitis. COMMENT: Sections of the gastric biopsy reveal gastric antral/body transition mucosa showing mild to moderate chronic inflammation with scattered admixed eosinophils. An immunoperoxidase stain for Helicobacter is obtained. No Helicobacter organisms are identified. There is no evidence of malignancy. Sections of the distal esophageal biopsy reveal segments of acute inflammatory exudate and few minute strips of gastric foveolar epithelium. The findings are consistent with an ulcer of the esophagogastric junction region. There are no viral inclusions. There is no evidence of Irwin's change, dysplasia, or malignancy. Sections of the upper esophageal biopsy reveal segments of acute inflammatory exudate and hyperplastic squamous esophageal mucosa with intraepithelial neutrophils. The findings are consistent with an ulcerative esophagitis. There are no viral inclusions identified. There is no evidence of Irwin's change, dysplasia, or malignancy. (JPM:mgr; 03/24/2017) Special Stain Performed: Immunoperoxidase stain for Helicobacter (A1) REPORT ELECTRONICALLY SIGNED BY: Boo Johns M.D. DATE/TIME: 03/24/2017 13:49 * * * * * * * * GROSS PATHOLOGY: A. Received in formalin labeled "Ricky, Phillipda, antrum biopsy," are two segments of [place] soft tissue measuring 0.1 and 0.3 cm in maximum dimension. The specimen is submitted entirely in cassette A1. An immunoperoxidase stain for H. Pylori will be obtained. B. Received in formalin labeled "lower esophageal biopsy," is a segment of [place] soft tissue measuring 0.2 cm in maximum dimension. The specimen is submitted entirely in cassette B1. C. Received in formalin labeled "upper esophageal biopsy," are three segments of [place] soft tissue measuring from 0.1 up to 0.2 cm in maximum dimension. The specimen is submitted entirely in cassette C1. (JPM; 03/23/17) INITIAL CPT CODE(S): A; 04667, 27238 B; 19181 C; 18947 Professional services performed by [facility] at [address] [place] [address] Technical services performed by [facility] at [address] [place] [address], [address], [place] [address]. SPECIMEN(S) RECEIVED: A.Antrum biopsy B.Lower esophagus biopsy C.Upper esophagus biopsy CLINICAL HISTORY: Chest pain PATIENT: CALDERON YAP /AGE: 11 1970 (Age: 46) PATIENT #: [id number] ALT CASE #: SPECIMEN COLLECTION DATE: 03/23/2017 SPECIMEN RECEIVED DATE: 03/23/2017 [facility] - [address] [place] [address] - PHONE: [phone] * * * END OF REPORT * * *
[2017-03-24 15:00] VITALS: BP 94/64
--- NOTE | 2017-03-24 18:00 | PDOC ---
PROGRESS NOTES Subjective She ate some mashed potatoes. Still coughing, temp to 100.2 though without apparent reason Objective temp 100.2 BP: noted General: coughing Heart: RRR Lungs: no rhonchi or wheezes Abd: soft Ext: no edema Vital Signs Vital Signs Date Time Temp Pulse Resp B/P (MAP) Pulse Ox O2 Delivery O2 Flow Rate FiO2 03/24/17 16:42 Room Air 03/24/17 15:00 100.2 98 18 94/64 (74) 98 100.2 03/23/17 13:35 4 Assessment and Plan 1. Chest pain. This appears to be noncardiac. 2. Epigastric pain - EGD showed yeast esophagitis, on PPI, started nystatin. 3. Gallbladder wall thickening, consider surgical consult if EGD normal. 4. Cocaine abuse, disability services coordinator consulted for tx program. 5. Hypertension, stable. 6. Asthma/chronic obstructive pulmonary disease, baseline cough. 7. Prediabetes, A1C 5.8. 8. Hyperlipidemia, TChol 224 but LDL 97, HDL 48, continue meds. 9. fever, possible aspiration, check CXR, WBC in am, hold discharge Problems: Bernie ANTHONY MD Mar 24, 2017 18:00
[2017-03-24 19:00] VITALS: BP 119/88
[2017-03-24 22:58] VITALS: BP 91/52
[2017-03-25 03:00] VITALS: BP 107/70
[2017-03-25] MEDS: HYDROcodone/APAP 7.5/325MG 1 TAB TABLET PO PRN (03:47)
[2017-03-25] MEDS: LIDO:MAALOX:DONNATAL 1:1:1 15 ML SINGLE DOSE SWSW PRN (03:49)
[2017-03-25 05:40] LABS: BASO # 0.1 x10^3/uL (0.0-0.2); BASO % 1 % (0-3); EOS % 2 % (0-3); HEMATOCRIT 36.2 % (36.0-47.0); HEMOGLOBIN 12.3 g/dL (12.0-15.5); LYMPH # 1.5 x10^3/uL (1.0-4.8); LYMPH % 18 % (24-48); MEAN CORPUSCULAR HEMOGLOBIN 31 pg (25-35); MEAN CORPUSCULAR HGB CONC 34 g/dL (31-37); MEAN CORPUSCULAR VOLUME 92 fL (79-100); MONO % 9 % (0-9); NEUT % 70 % (31-73); PLATELET COUNT 507 x10^3/uL (140-400); RED BLOOD COUNT 3.95 x10^6/uL (3.50-5.40); RED CELL DISTRIBUTION WIDTH 13.8 % (11.5-14.5); WHITE BLOOD COUNT 8.5 x10^3/uL (4.0-11.0)
[2017-03-25 07:00] VITALS: BP 108/70
[2017-03-25] MEDS: ALBUTEROL SULFATE 2.5 MG/3 ML NEBU. NEB SCH (07:10)
[2017-03-25] MEDS: BUDESONIDE 0.5 MG/2 ML NEBU. NEB SCH (07:10)
[2017-03-25] MEDS: metFORMIN 500 MG TABLET PO SCH (07:55)
[2017-03-25] MEDS: PANTOPRAZOLE 40 MG TABLET.DR. PO SCH (07:55)
[2017-03-25] MEDS: POTASSIUM CL 20MEQ D5-0.45NACL 1,000 ML IV SCH (09:12)
[2017-03-25] MEDS: amLODIPine BESYLATE 10 MG TABLET PO SCH (09:13)
[2017-03-25] MEDS: CETIRIZINE HCL 10 MG TABLET. PO SCH (09:13)
[2017-03-25] MEDS: MULTIVITAMIN with MINERAL TABLET. PO SCH (09:13)
[2017-03-25] MEDS: hydroCHLOROthiazide 25 MG TABLET PO SCH (09:13)
[2017-03-25] MEDS: LOSARTAN POTASSIUM 50 MG TABLET. PO SCH (09:14)
[2017-03-25] MEDS: NYSTATIN 100,000 UNITS/ML 5 ML ORAL.SUSP. SWSW SCH (09:20)
--- NOTE | 2017-03-25 09:59 | RAD ---
PA and lateral chest radiographs 03/24/2017 Clinical history: Cough and shortness of breath. Fever. PA and lateral digital radiographs of the chest were obtained. Comparison study is dated 03/21/2017. The cardiac silhouette is normal in size. The thoracic aorta is mildly tortuous. No acute pulmonary infiltrate is seen. No pleural effusion or pneumothorax is noted. Degenerative changes are seen involving the thoracic spine and both shoulders. Impression: No acute abnormality is seen.
[2017-03-25] MEDS: FLUTICASONE 50MCG/NASAL SPRAY 16GM BOTTLE. NS SCH (10:10)
[2017-03-25] MEDS ORDERED: NYST100054 SWSW (10:27)
[2017-03-25] MEDS ORDERED: PANT40TA5 PO (10:27)
[2017-03-25 11:00] VITALS: BP 115/67
== END 2017-03-25 11:10 | disposition home or self-care (01) | DRG 383 ==
LOC: ER 19:50 → 5 SOUTH 23:10 → 5 NORTH 03-23 14:36
PROVIDERS: ADMIT Family Medicine; ATTEND Family Medicine
PROC: 0DB18ZX Excision of Upper Esophagus, Via Natural or Artificial Opening Endoscopic, Diagnostic (ICD-10-PCS; 2017-03-23)
PROC: 0DB38ZX Excision of Lower Esophagus, Via Natural or Artificial Opening Endoscopic, Diagnostic (ICD-10-PCS; principal; 2017-03-23 13:30)
DX: K25.9 Gastric ulcer, unspecified as acute or chronic, without hemorrhage or perforation (principal); Q39.4 Esophageal web; B37.81 Candidal esophagitis; E11.22 Type 2 diabetes mellitus with diabetic chronic kidney disease; R16.0 Hepatomegaly, not elsewhere classified; R07.89 Other chest pain; E87.6 Hypokalemia; E78.00 Pure hypercholesterolemia, unspecified; E78.5 Hyperlipidemia, unspecified; F14.10 Cocaine abuse, uncomplicated; F17.210 Nicotine dependence, cigarettes, uncomplicated; F32.9 Major depressive disorder, single episode, unspecified; G43.909 Migraine, unspecified, not intractable, without status migrainosus; F41.9 Anxiety disorder, unspecified; G89.29 Other chronic pain; M54.5 Low back pain; I12.9 Hypertensive chronic kidney disease with stage 1 through stage 4 chronic kidney disease, or unspecified chronic kidney disease; I51.7 Cardiomegaly; J30.9 Allergic rhinitis, unspecified; K21.9 Gastro-esophageal reflux disease without esophagitis; M10.9 Gout, unspecified; M19.90 Unspecified osteoarthritis, unspecified site; N18.2 Chronic kidney disease, stage 2 (mild); Z82.49 Family history of ischemic heart disease and other diseases of the circulatory system; Z87.01 Personal history of pneumonia (recurrent); Z82.5 Family history of asthma and other chronic lower respiratory diseases; Z83.3 Family history of diabetes mellitus; Z86.73 Personal history of transient ischemic attack (TIA), and cerebral infarction without residual deficits; Z90.710 Acquired absence of both cervix and uterus
CPT/HCPCS: 36415; 51701; 71010; 71020; 74220; 76705; 80048; 80053; 80061; 80307; 82043; 82962; 83036; 83690; 83735; 84443; 84484; 85025; 87641; 88305; 88342; 90732; 93005; 94250; 94640; 94760; 96361; 96374; 96375; 99406; J1885; J2270; J2405; J2704; J7030; J7613; J7626; 99285-25; G0479

== ENCOUNTER 2017-06-09 03:54 | Emergency (ER) | payer OTHER ==
[~2017-06-09] VITALS: Ht 167.6 cm; Wt 72.6 kg
[~2017-06-09 03:54] MED LIST changes: +NYST100054 SWSW; +PANT40TA5 PO
--- NOTE | 2017-06-09 03:57 | PHYS DOC ---
Past Medical History Past Medical History: Asthma, COPD, Diabetes-Type II, High Cholesterol, Hypertension, Pneumonia, Other Additional Past Medical Histor: Lupus Past Surgical History: Hysterectomy, Other Additional Past Surgical Histo: chest tube for pneumonia Alcohol Use: Occasionally Drug Use: None Adult General Chief Complaint Chief Complaint: ASTHMA HPI HPI Patient is a 47 year old -[place] female who presents with shortness of breath and wheezing. She states she has asthma but on review of the record she has COPD. She still smokes half a pack per day. She states her wheezing started yesterday. She been doing her breathing treatments and inhalers without any relief. She denies any chest pain, nausea vomiting fevers or chills. She states she does have a cough that is nonproductive. Review of Systems Review of Systems Constitutional: Denies fever or chills [] Eyes: Denies change in visual acuity, redness, or eye pain [] HENT: Denies nasal congestion or sore throat [] Respiratory: Positive for cough and shortness of breath [] Cardiovascular: No additional information not addressed in HPI [] GI: Denies abdominal pain, nausea, vomiting, bloody stools or diarrhea [] : Denies dysuria or hematuria [] Musculoskeletal: Denies back pain or joint pain [] Integument: Denies rash or skin lesions [] Neurologic: Denies headache, focal weakness or sensory changes [] Endocrine: Denies polyuria or polydipsia [] All other systems were reviewed and found to be within normal limits, except as documented in this note. Current Medications Current Medications Current Medications Medications (Trade) Dose Ordered Sig/Nona Start Time Stop Time Status Last Admin Dose Admin Albuterol/ Ipratropium (Duoneb) 3 ml 1X ONCE 06/09/17 05:30 06/09/17 05:31 DC 06/09/17 05:35 3 ML Azithromycin (Zithromax) 500 mg 1X ONCE 06/09/17 04:30 06/09/17 04:31 DC 06/09/17 04:35 500 MG Hydralazine HCl (Apresoline Inj) 10 mg 1X ONCE 06/09/17 05:30 12 05:31 DC 06/09/17 05:40 10 MG Methylprednisolone Sodium Succinate (SOLU-Medrol 125MG VIAL) 125 mg 1X ONCE 06/09/17 04:30 06/09/17 04:31 DC 06/09/17 04:35 125 MG Ringer's Solution 1,000 ml @ 1,000 mls/hr Q1H 06/09/17 05:00 06/09/17 05:59 DC 06/09/17 05:16 1,000 MLS/HR Allergies Allergies Allergies Coded Allergies Type Severity Reaction Last Updated Verified lisinopril Allergy Intermediate COUGH 03/23/17 Yes I S O L A T I O N *CONTACT* Allergy Unknown 03/23/17 Yes Physical Exam Physical Exam Constitutional: Well developed, well nourished, no acute distress, non-toxic appearance. [] HENT: Normocephalic, atraumatic, bilateral external ears normal, oropharynx moist, no oral exudates, nose normal. [] Eyes: PERRLA, EOMI, conjunctiva normal, no discharge. [] Neck: Normal range of motion, no tenderness, supple, no stridor. [] Cardiovascular:Heart rate regular rhythm, no murmur [] Lungs & Thorax: Decreased breath sounds bilaterally with moderate free wheezes Abdomen: Soft, nontender, normal bowel sounds, no masses appreciated Skin: Warm, dry, no erythema, no rash. [] Back: No tenderness, no CVA tenderness. [] Extremities: No tenderness, no cyanosis, no clubbing, ROM intact, no edema. [] Neurologic: Alert and oriented X 3, normal motor function, normal sensory function, no focal deficits noted. [] Psychologic: Affect normal, judgement normal, mood normal. [] Current Patient Data Vital Signs Vital Signs Date Time Temp Pulse Resp B/P (MAP) Pulse Ox O2 Delivery O2 Flow Rate FiO2 06/09/17 05:51 101 22 184/117 (139) 100 Room Air 06/09/17 04:05 98.5 98.5 Lab Values Laboratory Tests Test 06/09/17 05:08 06/09/17 05:09 Urine Collection Type Unknown Urine Color Yellow Urine Clarity Clear Urine pH 6.0 Urine Specific [place] 1.015 Urine Protein Negative mg/dL (NEG-TRACE) Urine Glucose (UA) Negative mg/dL (NEG) Urine Ketones (Stick) Negative mg/dL (NEG) Urine Blood Negative (NEG) Urine Nitrite Negative (NEG) Urine Bilirubin Negative (NEG) Urine Urobilinogen Dipstick 1.0 mg/dL (0.2 mg/dL) Urine Leukocyte Esterase Trace (NEG) Urine RBC Rare /HPF (0-2) Urine WBC Occ /HPF (0-4) Urine Squamous Epithelial Cells Mod /LPF Urine Bacteria Few /HPF (0-FEW) Urine Mucus Slight /LPF Urine Opiates Screen Neg (NEG) Urine Methadone Screen Neg (NEG) Urine Barbiturates Neg (NEG) Urine Phencyclidine Screen Neg (NEG) Urine Amphetamine/Methamphetamine Neg (NEG) Urine Benzodiazepines Screen Neg (NEG) Urine Cocaine Screen Pos (NEG) Urine Cannabinoids Screen Neg (NEG) Urine Ethyl Alcohol Neg (NEG) White Blood Count 9.4 x10^3/uL (4.0-11.0) Red Blood Count 4.60 x10^6/uL (3.50-5.40) Hemoglobin 13.9 g/dL (12.0-15.5) Hematocrit 42.1 % (36.0-47.0) Mean Corpuscular Volume 92 fL (79-100) Mean Corpuscular Hemoglobin 30 pg (25-35) Mean Corpuscular Hemoglobin Concent 33 g/dL (31-37) Red Cell Distribution Width 14.0 % (11.5-14.5) Platelet Count 389 x10^3/uL (140-400) Neutrophils (%) (Auto) 58 % (31-73) Lymphocytes (%) (Auto) 32 % (24-48) Monocytes (%) (Auto) 7 % (0-9) Eosinophils (%) (Auto) 3 % (0-3) Basophils (%) (Auto) 1 % (0-3) Neutrophils # (Auto) 5.4 x10^3uL (1.8-7.7) Lymphocytes # (Auto) 3.0 x10^3/uL (1.0-4.8) Monocytes # (Auto) 0.7 x10^3/uL (0.0-1.1) Eosinophils # (Auto) 0.3 x10^3/uL (0.0-0.7) Basophils # (Auto) 0.1 x10^3/uL (0.0-0.2) Sodium Level 138 mmol/L (136-145) Potassium Level 3.9 mmol/L (3.5-5.1) Chloride Level 102 mmol/L (98-107) Carbon Dioxide Level 23 mmol/L (21-32) Anion Gap 13 (6-14) Blood Urea Nitrogen 9 mg/dL (7-20) Creatinine 0.8 mg/dL (0.6-1.0) Estimated GFR (Cockcroft-Gault) 93.4 BUN/Creatinine Ratio 11 (6-20) Glucose Level 108 mg/dL (70-99) H Calcium Level 9.9 mg/dL (8.5-10.1) Magnesium Level 1.9 mg/dL (1.8-2.4) Total Bilirubin 0.4 mg/dL (0.2-1.0) Aspartate Amino Transferase (AST) 64 U/L (15-37) H Alanine Aminotransferase (ALT) 49 U/L (14-59) Alkaline Phosphatase 82 U/L (46-116) Creatine Kinase 93 U/L (26-192) Creatine Kinase MB (Mass) < 0.5 ng/mL (0.0-3.6) Creatine Kinase MB Relative Index % (0-4) Troponin I Quantitative < 0.017 ng/mL (0.000-0.055) UA-Gmg-X-Type Natriuretic Peptide 207 pg/mL (0-124) H Total Protein 8.1 g/dL (6.4-8.2) Albumin 3.5 g/dL (3.4-5.0) Albumin/Globulin Ratio 0.8 (1.0-1.7) L Lipase 230 U/L (73-393) Laboratory Tests 06/09/17 05:09 Laboratory Tests 06/09/17 05:09 EKG EKG EKG shows sinus rhythm with rate of [address] elevations or concerning T-wave inversions, normal axis, QTC 433 ms, as interpreted by me. Radiology/Procedures Radiology/Procedures View chest x-ray did not show any focal focal consolidations, bony abnormalities or pneumo-thorax, her right hemithorax is slightly elevated compared to previous Impressions: COPD exacerbation Cocaine abuse Hypertension Course & Med Decision Making Course & Med Decision Making Pertinent Labs and Imaging studies reviewed. (See chart for details) Patient comes in wheezing but her vitals do not show any acute abnormality's. She is not requiring oxygen. She became hypertensive in the ER with systolics greater than 200. She received IV fluids, basic labs and 10 mg hydralazine. She denies any chest discomfort even when her blood pressure was in the 200s. She states that this time for take her a.m. blood pressure meds. I've offered her admission the hospital but she would rather go home. She is being discharged with azithromycin and prednisone called into her local pharmacy. She states she has plenty of albuterol inhalers and nebulizers at home. She is instructed to follow-up with primary care physician within next few days, return back to ER for shortness of breath, headache, chest pain or other concerns. She is instructed to stop using illegal drugs. Dragon Disclaimer Dragon Disclaimer This electronic medical record was generated, in whole or in part, using a voice recognition dictation system. Departure Departure Impression: Primary Impression: Cocaine abuse Additional Impression: COPD exacerbation Disposition: , SELF-CARE Condition: STABLE Referrals: ALLIE MARES MD (PCP) Patient Instructions: Asthma, Adult Additional Instructions: You were seen tonight for wheezing. Your chest x-ray, labs did not show any acute abnormalities. Your blood pressure did become elevated and he received a dose of IV blood pressure medicines. You were offered admission the hospital but he rather go home. You will need take your blood pressure medicines when you get home this morning. You can continue your breathing treatments every 4 hours as needed for wheezing or shortness of breath. Monday morning you will need to take another dose of prednisone and start taking your antibiotic that you were prescribed. Keep an eye on your blood pressure make sure it proves. A normal blood pressure is 120/80. You can check it at the fire department or your local pharmacies. Return back to ER if your shortness breath gets worse, you develop fevers, headache, chest pain, or other concerns. You will need to follow-up with your primary care physician within the next few days. You should avoid taking illegal drugs. They can make your breathing difficult and raise your blood pressure. Scripts Prednisone (PREDNISONE) 50 Mg Tablet 1 TAB PO DAILY, #5 TAB Prov: SUZAN MACK MD 06/09/17 Azithromycin (AZITHROMYCIN TABLET) 250 Mg Tablet 1 PKG PO UD, #6 TAB Prov: SUZAN MACK MD 06/09/17 Problem Qualifiers SUZAN MACK MD Jun 09, 2017 03:57
[2017-06-09] MEDS ORDERED: IPRATRPIUM/ALBUTEROL 0.5/2.5MG 3 ML NEBU. NEB ONE ×2 (04:30→05:30)
[2017-06-09] MEDS ORDERED: methylPREDNISolone SOD SUCC PF 125 MG/2 ML VIAL. IV ONE (04:30)
[2017-06-09] MEDS ORDERED: AZITHROMYCIN 250 MG TABLET. PO ONE (04:30)
[2017-06-09] MEDS ORDERED: IV RINGERS,LACTATED 1000ML 1,000 ML IV SCH (05:00)
[2017-06-09 05:21] LABS: BILIRUBIN,URINE NEGATIVE (NEG); GLUCOSE,URINE NEGATIVE (NEG); NITRITE,URINE NEGATIVE (NEG); PROTEIN,URINE NEGATIVE (NEG-TRACE)
[2017-06-09 05:26] LABS: BASO # 0.1 x10^3/uL (0.0-0.2); BASO % 1 % (0-3); EOS % 3 % (0-3); HEMATOCRIT 42.1 % (36.0-47.0); HEMOGLOBIN 13.9 g/dL (12.0-15.5); LYMPH % 32 % (24-48); MEAN CORPUSCULAR HEMOGLOBIN 30 pg (25-35); MEAN CORPUSCULAR HGB CONC 33 g/dL (31-37); MEAN CORPUSCULAR VOLUME 92 fL (79-100); MONO % 7 % (0-9); NEUT % 58 % (31-73); PLATELET COUNT 389 x10^3/uL (140-400); WHITE BLOOD COUNT 9.4 x10^3/uL (4.0-11.0)
[2017-06-09 05:28] LABS: BARBITURATES NEG (NEG); BENZODIAZEPINES NEG (NEG); CANNABINOIDS NEG (NEG); COCAINE POS (NEG); METHADONE NEG (NEG); OPIATES NEG (NEG); PHENCYCLIDINE NEG (NEG)
[2017-06-09] MEDS ORDERED: hydrALAZINE 20 MG/ML VIAL. IVP ONE (05:30)
[2017-06-09 05:37] LABS: CALCIUM 9.9 mg/dL (8.5-10.1); CREATININE 0.8 mg/dL (0.6-1.0); GFR 93.4; POTASSIUM 3.9 mmol/L (3.5-5.1)
[2017-06-09 05:39] LABS: ALBUMIN 3.5 g/dL (3.4-5.0); ALBUMIN/GLOBULIN RATIO 0.8 (1.0-1.7); MAGNESIUM 1.9 mg/dL (1.8-2.4); TOTAL BILIRUBIN 0.4 mg/dL (0.2-1.0); TOTAL PROTEIN 8.1 g/dL (6.4-8.2)
[2017-06-09 05:51] VITALS: BP 184/117
[2017-06-09 05:52] LABS: CKMB MASS < 0.5 ng/mL (0.0-3.6); CREATINE KINASE 93 U/L (26-192)
[2017-06-09] MEDS ORDERED: AZIT250T6 PO (05:58)
[2017-06-09] MEDS ORDERED: PRED50TA PO (05:58)
[2017-06-09 05:59] LABS: RBC,URINE RARE /HPF (0-2); WBC,URINE OCC /HPF (0-4)
[2017-06-09 06:00] LABS: BACTERIA,URINE FEW /HPF (0-FEW); SQUAMOUS EPITHELIAL CELL,UR MOD /LPF
--- NOTE | 2017-06-09 06:16 | EKG ---
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
--- NOTE | 2017-06-09 07:09 | RAD ---
Portable chest, 06/09/2017: History: Shortness of breath Comparison is made to a study from 03/24/2017. The heart size and pulmonary vascularity are normal. There is minimal right basilar scarring. No acute pulmonary infiltrates are seen. There is no evidence of pleural fluid. IMPRESSION: No acute cardiopulmonary abnormality is detected.
[2017-06-14] MEDS ORDERED: ONDA4TAB7 PO (12:52)
[2017-06-14] MEDS ORDERED: PRED-220 PO (12:52)
[2017-06-14] MEDS ORDERED: POTA20TA4 PO (12:52)
[2017-06-14] MEDS ORDERED: ATOR40TA59 PO (12:52)
== END 2017-06-09 06:00 | disposition home or self-care (01) ==
LOC: ER 03:54
DX: J44.1 Chronic obstructive pulmonary disease with (acute) exacerbation (principal); F14.10 Cocaine abuse, uncomplicated; E11.9 Type 2 diabetes mellitus without complications; E78.00 Pure hypercholesterolemia, unspecified; I10 Essential (primary) hypertension; F17.210 Nicotine dependence, cigarettes, uncomplicated; Z88.8 Allergy status to other drugs, medicaments and biological substances; Z91.041 Radiographic dye allergy status
CPT/HCPCS: 36415; 71010; 80053; 80307; 81001; 82553; 83690; 83735; 83880; 84484; 85025; 87086; 93005; 94250; 94640; 96361; 96374; 96375; 99285; J0360; J2930; J7620; Q0144; J7120; G0479

== ENCOUNTER 2017-06-13 09:40 | Inpatient (IN) | payer OTHER ==
[~2017-06-13] VITALS: Ht 167.6 cm; Wt 72.6 kg
[~2017-06-13 09:40] MED LIST changes: +AZIT250T6 PO
[2017-06-13] MEDS ORDERED: IV NORMAL SALINE 1000ML BAG 1,000 ML IV SCH (10:28)
[2017-06-13] MEDS ORDERED: ONDANSETRON PF 4 MG/2 ML VIAL. IV ONE (10:30)
[2017-06-13] MEDS ORDERED: FAMOTIDINE 20 MG/2 ML VIAL IVP ONE (10:30)
[2017-06-13] MEDS: fentaNYL PF VIAL 100 MCG/2 ML VIAL IV PRN ×7 (10:55→22:48)
--- NOTE | 2017-06-13 11:12 | EKG ---
[facility] [address] [place] [address] Test Date: 2017-06-13 Test Time: 10:48:58 Pat Name: CALDERON YAP Department: Room: Gender: F [employer]: : 1970 Requested By: EDILMA VERA Order Number: [id number] Reading MD: Measurements Intervals [place] Rate: 107 P: -72 [place]: 86 QRS: 25 QRSD: 80 T: 66 QT: 340 QTc: 459 Interpretive Statements SUPRAVENTRICULAR RHYTHM T ABNORMALITY IN HIGH LATERAL LEADS ABNORMAL ECG No previous ECG available for comparison
--- NOTE | 2017-06-13 11:17 | PHYS DOC ---
Past Medical History Past Medical History: Asthma, COPD, Diabetes-Type II, High Cholesterol, Hypertension, Pancreatitis, Pneumonia, Other Additional Past Medical Histor: Lupus Past Surgical History: Hysterectomy, Other Additional Past Surgical Histo: chest tube for pneumonia Additional Information: 07/04 ppd Alcohol Use: Occasionally Drug Use: None Adult General Chief Complaint Chief Complaint: ABDOMINAL PAIN HPI HPI Patient is a 47 year old female who presents with complaint of abdominal pain, vomiting, and diarrhea. Patient states her symptoms started yesterday and have progressively worsened. Patient states that the pain is in the middle of her abdomen and rates currently as 9 out of 10 on my evaluation. Patient states she has had history of pancreatitis and states that her symptoms are similar to her previous episode. Patient denies any fevers, shortness of breath. Patient has had lightheadedness and body aches associated with her symptoms. Patient denies any known sick contacts. Patient has not taken any medications to help with symptoms at this time. Review of Systems Review of Systems Constitutional: Lightheadedness, denies fever or chills [] Eyes: Denies change in visual acuity, redness, or eye pain [] HENT: Denies nasal congestion or sore throat [] Respiratory: Denies cough or shortness of breath [] Cardiovascular: Denies chest pain or edema[] GI: Abdominal pain, nausea, vomiting, diarrhea[] : Denies dysuria or hematuria [] Musculoskeletal: Myalgias[] Integument: Denies rash or skin lesions [] Neurologic: Denies headache, focal weakness or sensory changes [] All other systems were reviewed and found to be within normal limits, except as documented in this note. Current Medications Current Medications Current Medications Medications (Trade) Dose Ordered Sig/Nona Start Time Stop Time Status Last Admin Dose Admin Famotidine (Pepcid Vial) 20 mg 1X ONCE 06/13/17 10:30 06/13/17 10:33 DC 06/13/17 10:59 20 MG Fentanyl Citrate (Fentanyl 2ml Vial) 50 mcg PRN Q15MIN PRN 06/13/17 10:30 06/14/17 10:29 06/13/17 12:41 50 MCG Ondansetron HCl (Zofran) 4 mg 1X ONCE 06/13/17 10:30 06/13/17 10:33 DC 06/13/17 10:57 4 MG Sodium Chloride 1,000 ml @ 1,000 mls/hr Q1H 06/13/17 10:28 06/13/17 11:27 DC 06/13/17 10:53 1,000 MLS/HR Allergies Allergies Allergies Coded Allergies Type Severity Reaction Last Updated Verified lisinopril Allergy Intermediate COUGH 03/23/17 Yes I S O L A T I O N *CONTACT* Allergy Unknown 03/23/17 Yes Physical Exam Physical Exam Constitutional: Alert, afebrile, appears in moderate discomfort. [] HENT: Normocephalic, atraumatic, bilateral external ears normal, oropharynx moist, no oral exudates, nose normal. [] Eyes: PERRLA, EOMI, conjunctiva normal, no discharge. [] Neck: Normal range of motion, no tenderness, supple, no stridor. [] Cardiovascular: Tachycardia, regular rhythm, no murmur [] Lungs & Thorax: Bilateral breath sounds clear to auscultation [] Abdomen: Bowel sounds normal, soft, lower epigastric tenderness to palpation, guarding present, no rebound tenderness, no masses, no pulsatile masses. [] Skin: Warm, dry, no erythema, no rash. [] Back: No tenderness, no CVA tenderness. [] Extremities: No tenderness, no cyanosis, no clubbing, ROM intact, no edema. [] Neurologic: Alert and oriented X 3, normal motor function, normal sensory function, no focal deficits noted. [] Current Patient Data Vital Signs Vital Signs Date Time Temp Pulse Resp B/P (MAP) Pulse Ox O2 Delivery O2 Flow Rate FiO2 06/13/17 13:43 100 20 174/106 (128) 96 Room Air 06/13/17 09:52 98.6 98.6 Lab Values Laboratory Tests Test 06/13/17 11:06 06/13/17 12:33 White Blood Count 9.5 x10^3/uL (4.0-11.0) Red Blood Count 4.94 x10^6/uL (3.50-5.40) Hemoglobin 15.2 g/dL (12.0-15.5) Hematocrit 44.7 % (36.0-47.0) Mean Corpuscular Volume 91 fL (79-100) Mean Corpuscular Hemoglobin 31 pg (25-35) Mean Corpuscular Hemoglobin Concent 34 g/dL (31-37) Red Cell Distribution Width 14.1 % (11.5-14.5) Platelet Count 389 x10^3/uL (140-400) Neutrophils (%) (Auto) 87 % (31-73) H Lymphocytes (%) (Auto) 8 % (24-48) L Monocytes (%) (Auto) 3 % (0-9) Eosinophils (%) (Auto) 2 % (0-3) Basophils (%) (Auto) 0 % (0-3) Neutrophils # (Auto) 8.3 x10^3uL (1.8-7.7) H Lymphocytes # (Auto) 0.8 x10^3/uL (1.0-4.8) L Monocytes # (Auto) 0.3 x10^3/uL (0.0-1.1) Eosinophils # (Auto) 0.1 x10^3/uL (0.0-0.7) Basophils # (Auto) 0.0 x10^3/uL (0.0-0.2) Segmented Neutrophils % 85 % (35-66) H Lymphocytes % 8 % (24-48) L Monocytes % 4 % (0-10) Eosinophils % 3 % (0-5) Platelet Estimate Adequate (ADEQUATE) Sodium Level 138 mmol/L (136-145) Potassium Level 3.3 mmol/L (3.5-5.1) L Chloride Level 102 mmol/L (98-107) Carbon Dioxide Level 22 mmol/L (21-32) Anion Gap 14 (6-14) Blood Urea Nitrogen 13 mg/dL (7-20) Creatinine 0.9 mg/dL (0.6-1.0) Estimated GFR (Cockcroft-Gault) 81.6 BUN/Creatinine Ratio 14 (6-20) Glucose Level 102 mg/dL (70-99) H Calcium Level 9.0 mg/dL (8.5-10.1) Total Bilirubin 0.6 mg/dL (0.2-1.0) Aspartate Amino Transferase (AST) 424 U/L (15-37) H Alanine Aminotransferase (ALT) 129 U/L (14-59) H Alkaline Phosphatase 74 U/L (46-116) Total Protein 7.5 g/dL (6.4-8.2) Albumin 3.4 g/dL (3.4-5.0) Albumin/Globulin Ratio 0.8 (1.0-1.7) L Lipase 172 U/L (73-393) Urine Collection Type Void Urine Color Yellow Urine Clarity Clear Urine pH 6.0 Urine Specific [place] 1.020 Urine Protein Negative mg/dL (NEG-TRACE) Urine Glucose (UA) Negative mg/dL (NEG) Urine Ketones (Stick) Negative mg/dL (NEG) Urine Blood Negative (NEG) Urine Nitrite Negative (NEG) Urine Bilirubin Negative (NEG) Urine Urobilinogen Dipstick 0.2 mg/dL (0.2 mg/dL) Urine Leukocyte Esterase Negative (NEG) Urine RBC 0 /HPF (0-2) Urine WBC 1-4 /HPF (0-4) Urine Squamous Epithelial Cells Mod /LPF Urine Bacteria Few /HPF (0-FEW) Urine Mucus Mod /LPF Laboratory Tests 06/13/17 11:06 Laboratory Tests 06/13/17 11:06 EKG EKG Interpreted by me: Heart rate of 108, sinus tachycardia, normal intervals, normal axis, no acute ST/T-wave abnormalities present[] Radiology/Procedures Radiology/Procedures [facility] [address] [place] [address] IMAGING REPORT Signed PATIENT: CALDERON YAP ACCOUNT: [id number] : 1970 LOCATION: ER AGE: 47 SEX: F EXAM STATUS: REG ER ORD. PHYSICIAN: EDILMA VERA MD REASON: abdominal pain, nausea, vomiting/ PROCEDURE: ACUTE ABDOMEN SERIES Indication: Abdominal pain. Nausea and vomiting. Symptoms began yesterday. Technique: Abdominal series with PA chest radiograph was obtained. There are 3 images. Comparison is from February 20, 2011. Findings: The lungs are clear. The heart is not enlarged. There is no free air. There is no dilated small bowel loop. Nonspecific air-fluid levels appear to be within colon. There are mild degenerative changes in the spine. Leads overlie the patient. Impression: 1. No evidence of small bowel obstruction. 2. Air-fluid levels appear to be within the colon, compatible with diarrhea. Correlate with any concern for colitis. DICTATED and SIGNED BY: CHANNING MONDRAGON MD DATE: 06/13/17 9830 CC: CAYETANO BISWAS MD; EDILMA VERA MD ~ [] Course & Med Decision Making Course & Med Decision Making Pertinent Labs and Imaging studies reviewed. (See chart for details) Patient was started on IV fluids, fentanyl, and Zofran. The patient's lab work shows a nonspecific elevation in the patient's transaminases and patient's abdominal x-rays show a nonobstructive gas pattern with distention that would be consistent with a diarrheal illness. On reevaluation, the patient states that she does not feel any better at this time and does not feel comfortable going home. I spoke with Dr. Biswas who agreed to accept patient for admission for further symptomatic control and hydration. Dragon Disclaimer Dragon Disclaimer This electronic medical record was generated, in whole or in part, using a voice recognition dictation system. Departure Departure Impression: Primary Impression: Abdominal pain Additional Impressions: Vomiting Diarrhea Elevated transaminase level Disposition: ADMITTED INPATIENT Admitting Physician: Cayetano Mosqueda Condition: STABLE Referrals: CAYETANO BISWAS MD (PCP) Problem Qualifiers Primary Impression: Abdominal pain Abdominal location: epigastric Qualified Codes: R10.13 - Epigastric pain Additional Impressions: Vomiting Vomiting type: unspecified Vomiting Intractability: non-intractable Nausea presence: with nausea Qualified Codes: R11.2 - Nausea with vomiting, unspecified Diarrhea Diarrhea type: presumed infectious Qualified Codes: A09 - Infectious gastroenteritis and colitis, unspecified EDILMA VREA MD Jun 13, 2017 11:17
[2017-06-13 11:18] LABS: BASO % 0 % (0-3); EOS % 2 % (0-3); HEMATOCRIT 44.7 % (36.0-47.0); HEMOGLOBIN 15.2 g/dL (12.0-15.5); LYMPH # 0.8 x10^3/uL (1.0-4.8); LYMPH % 8 % (24-48); MEAN CORPUSCULAR HEMOGLOBIN 31 pg (25-35); MEAN CORPUSCULAR HGB CONC 34 g/dL (31-37); MEAN CORPUSCULAR VOLUME 91 fL (79-100); MONO % 3 % (0-9); NEUT % 87 % (31-73); PLATELET COUNT 389 x10^3/uL (140-400); RED BLOOD COUNT 4.94 x10^6/uL (3.50-5.40); RED CELL DISTRIBUTION WIDTH 14.1 % (11.5-14.5); WHITE BLOOD COUNT 9.5 x10^3/uL (4.0-11.0)
[2017-06-13 11:32] LABS: CREATININE 0.9 mg/dL (0.6-1.0); GFR 81.6; POTASSIUM 3.3 mmol/L (3.5-5.1)
[2017-06-13 11:37] LABS: ALBUMIN 3.4 g/dL (3.4-5.0); ALBUMIN/GLOBULIN RATIO 0.8 (1.0-1.7); TOTAL BILIRUBIN 0.6 mg/dL (0.2-1.0); TOTAL PROTEIN 7.5 g/dL (6.4-8.2)
--- NOTE | 2017-06-13 11:40 | RAD ---
Indication: Abdominal pain. Nausea and vomiting. Symptoms began yesterday. Technique: Abdominal series with PA chest radiograph was obtained. There are 3 images. Comparison is from February 20, 2011. Findings: The lungs are clear. The heart is not enlarged. There is no free air. There is no dilated small bowel loop. Nonspecific air-fluid levels appear to be within colon. There are mild degenerative changes in the spine. Leads overlie the patient. Impression: 1. No evidence of small bowel obstruction. 2. Air-fluid levels appear to be within the colon, compatible with diarrhea. Correlate with any concern for colitis.
[2017-06-13 11:57] LABS: % EOS 3 % (0-5); PLT ESTIMATE ADEQUATE (ADEQUATE)
[2017-06-13 12:53] LABS: BILIRUBIN,URINE NEGATIVE (NEG); GLUCOSE,URINE NEGATIVE (NEG); NITRITE,URINE NEGATIVE (NEG); PROTEIN,URINE NEGATIVE (NEG-TRACE); UROBILINOGEN,URINE 0.2 mg/dL (0.2 mg/dL)
[2017-06-13 12:56] LABS: SQUAMOUS EPITHELIAL CELL,UR MOD /LPF
[2017-06-13 12:57] LABS: BACTERIA,URINE FEW /HPF (0-FEW); RBC,URINE 0 /HPF (0-2)
[2017-06-13] MEDS ORDERED: ONDANSETRON PF 4 MG/2 ML VIAL. IV PRN ×2 (15:00→18:45)
[2017-06-13] MEDS: IV NORMAL SALINE 1000ML BAG 1,000 ML IV SCH (16:03)
[2017-06-13] MEDS ORDERED: NON FORMULARY ITEM (Albuterol Sulfate (Proair Hfa Inhaler) 2 PUFF) INH PRN (16:45)
[2017-06-13] MEDS ORDERED: POTASSIUM CHLORIDE 20 MEQ TABLET.ER. PO ONE (16:45)
[2017-06-13] MEDS: amLODIPine BESYLATE 10 MG TABLET PO SCH (17:00)
[2017-06-13] MEDS ORDERED: ALBUTEROL SULFATE 2.5 MG/3 ML NEBU. NEB PRN (17:00)
[2017-06-13] MEDS ORDERED: CYCLOBENZAPRINE 10 MG TABLET. PO PRN (17:15)
[2017-06-13] MEDS: NICOTINE 14MG PATCH. TD SCH (17:46)
[2017-06-13] MEDS ORDERED: PROCHLORPERAZINE 10 MG/2 ML VIAL. IV PRN (18:30)
[2017-06-13] MEDS ORDERED: METOPROLOL TARTRATE 5 MG/5 ML VIAL. IVP PRN (18:45)
[2017-06-13] MEDS: HYDROcodone/APAP 7.5/325MG 1 TAB TABLET PO PRN (18:50)
[2017-06-13 19:00] VITALS: BP 157/107
[2017-06-13] MEDS: BUDESONIDE 0.5 MG/2 ML NEBU. NEB SCH (20:18)
[2017-06-13] MEDS: ALBUTEROL SULFATE 2.5 MG/3 ML NEBU. NEB SCH (20:18)
[2017-06-13] MEDS ORDERED: NON FORMULARY ITEM (Budesonide/Formoterol Fumarate (Symbicort 160-4.5 Mcg Inhaler) 2 PUFF) IH SCH (21:00)
[2017-06-13 23:00] VITALS: BP 154/96
[2017-06-14] MEDS: IV NORMAL SALINE 1000ML BAG 1,000 ML IV SCH ×2 (00:15→09:06)
[2017-06-14] MEDS: HYDROcodone/APAP 7.5/325MG 1 TAB TABLET PO PRN ×2 (02:13→09:09)
[2017-06-14 03:00] VITALS: BP 159/108
[2017-06-14] MEDS: fentaNYL PF VIAL 100 MCG/2 ML VIAL IV PRN ×2 (04:00→07:11)
[2017-06-14 05:25] LABS: BASO % 0 % (0-3); EOS % 3 % (0-3); HEMATOCRIT 39.2 % (36.0-47.0); HEMOGLOBIN 13.1 g/dL (12.0-15.5); LYMPH # 1.2 x10^3/uL (1.0-4.8); LYMPH % 20 % (24-48); MEAN CORPUSCULAR HEMOGLOBIN 31 pg (25-35); MEAN CORPUSCULAR HGB CONC 33 g/dL (31-37); MEAN CORPUSCULAR VOLUME 92 fL (79-100); MONO % 4 % (0-9); NEUT % 72 % (31-73); PLATELET COUNT 352 x10^3/uL (140-400); RED BLOOD COUNT 4.28 x10^6/uL (3.50-5.40); WHITE BLOOD COUNT 6.1 x10^3/uL (4.0-11.0)
[2017-06-14 06:05] LABS: CALCIUM 8.4 mg/dL (8.5-10.1); CREATININE 0.8 mg/dL (0.6-1.0); GFR 93.4; POTASSIUM 3.1 mmol/L (3.5-5.1)
[2017-06-14 07:00] VITALS: BP 149/67
[2017-06-14] MEDS ORDERED: POTASSIUM CHLORIDE 20 MEQ TABLET.ER. PO ONE (07:45)
[2017-06-14] MEDS: ALBUTEROL SULFATE 2.5 MG/3 ML NEBU. NEB SCH ×3 (07:56→15:33)
[2017-06-14] MEDS: BUDESONIDE 0.5 MG/2 ML NEBU. NEB SCH (07:56)
--- NOTE | 2017-06-14 07:59 | PDOC1 ---
History and Physical Date of Admission Date of Admission DATE: 06/13/17 Identification/Chief Complaint Chief Complaint Abdominal pain, diarrhea, vomiting Problems: Source Source: Patient History of Present Illness History of Present Illness Pt states that she woke up Monday morning with an upset stomach. Tried taking Pepto Bismol but symptoms did not seem to improve. As the day progressed pt started getting abdominal pain in the center of her abdomen and started to have vomiting and diarrhea. Vomiting and diarrhea did not really improve and pt thought she might be having another episode of pancreatitis so came to the ER. Abdomen is still hurting some this morning. Last vomited and had diarrhea last night around 5pm. Still slightly nauseous. Pt recently in the ER with positive UDS for cocaine. Discussed with pt that I can no longer continue prescribing her narcotic pain medication. Asked if pt needed assistance with substance abuse; pt is attending counseling and working on quitting. Pt has had troubles breathing for the past couple of days. She is aware that her cocaine use exacerbates her asthma and COPD. Past Medical History Cardiovascular: HTN, Hyperlipidemia Pulmonary: Asthma, COPD CENTRAL NERVOUS SYSTEM: Migraine GI: GERD Heme/Onc: Anemia NOS, Other Hepatobiliary: No pertinent hx Psych: Anxiety, Depression Musculoskeletal: low back pain, Osteoarthritis, Other Rheumatologic: Gout, Other (self reported Lupus) Infectious disease: No pertinent hx ENT: No pertinent hx Renal/: Chronic renal insuff Endocrine: No pertinent hx Dermatology: No pertinent hx Past Surgical History Past Surgical History: Tubal Ligation, Hysterectomy, Other (surgery on lung for pneumonia) Family History Family History: Asthma, Diabetes, Hypertension Social History Smoke: <1 pack per day ALCOHOL: occassional Drugs: Cocaine Current Problem List Problem List Problems Medical Problems: (1) Abdominal pain Status: Acute (2) Diarrhea Status: Acute (3) Elevated transaminase level Status: Acute (4) Vomiting Status: Acute Problems: Current Medications Current Medications Current Medications Fentanyl Citrate (Fentanyl 2ml Vial) 50 mcg PRN Q15MIN PRN IV PAIN GREATER THAN 3/10 Last administered on 06/13/17 14:42; Start 06/13/17 at 10:30; Stop 06/13/17 at 16:59; Status DC Sodium Chloride 1,000 ml @ 1,000 mls/hr Q1H IV Last administered on 10:53; Start 06/13/17 at 10:28; Stop 06/13/17 at 11:27; Status DC Ondansetron HCl (Zofran) 4 mg 1X ONCE IV Last administered on 06/13/17 10:57 ; Start 06/13/17 at 10:30; Stop 06/13/17 at 10:33; Status DC Famotidine (Pepcid Vial) 20 mg 1X ONCE IVP Last administered on 06/13/17 10: 59; Start 06/13/17 at 10:30; Stop 06/13/17 at 10:33; Status DC Ondansetron HCl (Zofran) 4 mg PRN Q8HRS PRN IV NAUSEA/VOMITING Last administered on 06/13/17 15:53; Start 06/13/17 at 15:00; Stop 06/13/17 at 18 :40; Status DC Fentanyl Citrate (Fentanyl 2ml Vial) 50 mcg PRN Q2HR PRN IV PAIN Last administered on 06/14/17 07:11; Start 06/13/17 at 15:00; Stop 06/14/17 at 14 :59 Sodium Chloride 1,000 ml @ 125 mls/hr Q8H IV Last administered on 06/14/17 00:15; Start 06/13/17 at 15:30; Stop 06/14/17 at 15:29 Amlodipine Besylate (Norvasc) 10 mg DAILY PO ; Start 06/13/17 at 17:00 Hydralazine HCl (Apresoline) 50 mg QID PO Last administered on 06/13/17 21:05 ; Start 06/13/17 at 17:00 Hydrochlorothiazide (Hydrodiuril) 25 mg DAILY PO ; Start 06/14/17 at 09:00 Acetaminophen/ Hydrocodone Bitart (Lortab 7.5/325) 1 tab PRN Q6HRS PRN PO PAIN Last administered on 06/14/17 02:13; Start 06/13/17 at 16:45 Losartan Potassium (Cozaar) 100 mg DAILY PO ; Start 06/14/17 at 09:00 Non-Formulary Medication 2 puff Q4HRS PRN INH SHORTNESS OF BREATH; Start 06/13 at 16:45; Status UNV Non-Formulary Medication 2 puff BID IH ; Start 06/13/17 at 21:00; Status UNV Cyclobenzaprine HCl (Flexeril) 10 mg PRN QHS PRN PO MUSCLE SPASMS; Start 06/13 at 17:15 Fluticasone Propionate (Flonase) 2 spray DAILY NS ; Start 06/14/17 at 09:00 Nicotine (Nicoderm Cq 14mg) 1 patch DAILY TD Last administered on 06/13/17 17 :46; Start 06/13/17 at 17:00 Potassium Chloride (Klor-Con) 40 meq 1X ONCE PO ; Start 06/13/17 at 16:45; Stop 06/13/17 at 16:49; Status DC Albuterol Sulfate (Ventolin Neb Soln) 2.5 mg PRN Q6HRS PRN NEB SHORTNESS OF BREATH; Start 06/13/17 at 17:00 Albuterol Sulfate (Ventolin Neb Soln) 2.5 mg RTQID NEB Last administered on 20:18; Start 06/13/17 at 20:00 Budesonide (Pulmicort) 0.5 mg RTBID NEB Last administered on 06/13/17 20:18; Start 06/13/17 at 20:00 Prochlorperazine Edisylate (Compazine) 10 mg PRN Q6HRS PRN IV NAUSEA/VOMITING; Start 06/13/17 at 18:30 Ondansetron HCl (Zofran) 8 mg PRN Q8HRS PRN IV NAUSEA/VOMITING Last administered on 06/13/17 18:51; Start 06/13/17 at 18:45 Metoprolol Tartrate (Lopressor Vial) 5 mg PRN Q6HRS PRN IVP ELEVATED BP, SEE COMMENTS; Start 06/13/17 at 18:45 Active Scripts Active Pantoprazole Sodium 40 Mg Tablet.dr 40 Mg PO DAILYAC 30 Days Hydrochlorothiazide Tablet (Hydrochlorothiazide) 25 Mg Tablet 1 Tab PO DAILY Hydralazine Hcl 50 Mg Tablet 50 Mg PO QID 30 Days Amlodipine Besylate 10 Mg Tablet 10 Mg PO DAILY 30 Days Cozaar (Losartan Potassium) 50 Mg Tablet 100 Mg PO DAILY 30 Days Glucophage (Metformin Hcl) 500 Mg Tablet 500 Mg PO BIDAC 90 Days Reported Multi-Day Vitamins (Multivitamin) 1 Each Tablet 1 Tab PO DAILY Flonase Allergy Relief (Fluticasone Propionate) 9.9 Ml [place].susp 2 Sprays NS DAILY Abilify (Aripiprazole) 5 Mg Tablet 5 Mg PO DAILY PRN Hydrocodone-Apap 7.5-325 (Hydrocodone Bit/Acetaminophen) 1 Each Tablet 1 Tab PO PRN Q6HRS PRN Cyclobenzaprine Hcl 5 Mg Tablet 1 Tab PO QHS PRN Proair Hfa Inhaler (Albuterol Sulfate) 8.5 Gm Hfa.aer.ad 2 Puff INH Q4HRS PRN Loratadine 10 Mg Tablet 1 Tab PO DAILY Albuterol Sulfate Conc Neb Soln (Albuterol Sulfate) 2.5 Mg/0.5 Ml Vial.neb 2.5 Mg IH Symbicort 160-4.5 Mcg Inhaler (Budesonide/Formoterol Fumarate) 10.2 Gm Hfa.aer.ad 2 Puff IH BID Allergies Allergies: Coded Allergies: lisinopril (Verified Allergy, Intermediate, COUGH, 03/23/17) I S O L A T I O N *CONTACT* (Verified Allergy, Unknown, 03/23/17) mrsa + ROS General: No: Chills, Night Sweats PSYCHOLOGICAL ROS: No: Anxiety, Depression Eyes: No Decreased vision, No Eye Pain HEENT: No: Nasal congestion, Sore Throat ALLERGY AND IMMUNOLOGY: No: Hives, Post Nasal Drip Hematological and Lymphatic: No: Bleeding Problems, Blood Clots Respiratory: YES: Cough, Shortness of breath, Sputum Changes (white sputum), Wheezing Cardiovascular: No Chest Pain, No Palpitations, No Edema Gastrointestinal: Yes Nausea, Yes Vomiting, Yes Abdominal Pain, Yes Diarrhea, No Constipation Genitourinary: No Dysuria, No Urgency Musculoskeletal: Yes Joint Pain, No Muscle Pain Neurological: No Impaired Coord/balance, No Numbness/Tingling, No Weakness Skin: No Rash, No Skin Lesion Changes Physical Exam General: Alert, Oriented X3, Cooperative, No acute distress HEENT: Atraumatic, PERRLA, EOMI, Mucous membr. moist/pink Lungs: Other (fine expiratory wheezing throughout) Heart: RRR, no rubs, no gallops, no murmurs Abdomen: Normal bowel sounds, Soft, No tenderness, No hepatosplenomegaly Extremities: No clubbing, No cyanosis, No edema Skin: No rashes, No breakdown, No significant lesion Neuro: Normal speech, Cranial nerves 3-12 NL Psych/Mental Status: Mental status NL, Mood NL Vitals Vitals Vital Signs Date Time Temp Pulse Resp B/P (MAP) Pulse Ox O2 Delivery O2 Flow Rate FiO2 06/14/17 07:11 18 Room Air 06/14/17 03:00 98.4 83 159/108 (125) 97 98.4 Labs Labs Laboratory Tests Test 06/13/17 11:06 06/13/17 12:33 06/13/17 16:15 06/13/17 20:49 White Blood Count 9.5 x10^3/uL (4.0-11.0) Red Blood Count 4.94 x10^6/uL (3.50-5.40) Hemoglobin 15.2 g/dL (12.0-15.5) Hematocrit 44.7 % (36.0-47.0) Mean Corpuscular Volume 91 fL (79-100) Mean Corpuscular Hemoglobin 31 pg (25-35) Mean Corpuscular Hemoglobin Concent 34 g/dL (31-37) Red Cell Distribution Width 14.1 % (11.5-14.5) Platelet Count 389 x10^3/uL (140-400) Neutrophils (%) (Auto) 87 % (31-73) Lymphocytes (%) (Auto) 8 % (24-48) Monocytes (%) (Auto) 3 % (0-9) Eosinophils (%) (Auto) 2 % (0-3) Basophils (%) (Auto) 0 % (0-3) Neutrophils # (Auto) 8.3 x10^3uL (1.8-7.7) Lymphocytes # (Auto) 0.8 x10^3/uL (1.0-4.8) Monocytes # (Auto) 0.3 x10^3/uL (0.0-1.1) Eosinophils # (Auto) 0.1 x10^3/uL (0.0-0.7) Basophils # (Auto) 0.0 x10^3/uL (0.0-0.2) Segmented Neutrophils % 85 % (35-66) Lymphocytes % 8 % (24-48) Monocytes % 4 % (0-10) Eosinophils % 3 % (0-5) Platelet Estimate Adequate (ADEQUATE) Sodium Level 138 mmol/L (136-145) Potassium Level 3.3 mmol/L (3.5-5.1) Chloride Level 102 mmol/L (98-107) Carbon Dioxide Level 22 mmol/L (21-32) Anion Gap 14 (6-14) Blood Urea Nitrogen 13 mg/dL (7-20) Creatinine 0.9 mg/dL (0.6-1.0) Estimated GFR (Cockcroft-Gault) 81.6 BUN/Creatinine Ratio 14 (6-20) Glucose Level 102 mg/dL (70-99) Calcium Level 9.0 mg/dL (8.5-10.1) Total Bilirubin 0.6 mg/dL (0.2-1.0) Aspartate Amino Transf (AST/SGOT) 424 U/L (15-37) Alanine Aminotransferase (ALT/SGPT) 129 U/L (14-59) Alkaline Phosphatase 74 U/L (46-116) Total Protein 7.5 g/dL (6.4-8.2) Albumin 3.4 g/dL (3.4-5.0) Albumin/Globulin Ratio 0.8 (1.0-1.7) Lipase 172 U/L (73-393) Urine Collection Type Void Urine Color Yellow Urine Clarity Clear Urine pH 6.0 Urine Specific [place] 1.020 Urine Protein Negative mg/dL (NEG-TRACE) Urine Glucose (UA) Negative mg/dL (NEG) Urine Ketones (Stick) Negative mg/dL (NEG) Urine Blood Negative (NEG) Urine Nitrite Negative (NEG) Urine Bilirubin Negative (NEG) Urine Urobilinogen Dipstick 0.2 mg/dL (0.2 mg/dL) Urine Leukocyte Esterase Negative (NEG) Urine RBC 0 /HPF (0-2) Urine WBC 1-4 /HPF (0-4) Urine Squamous Epithelial Cells Mod /LPF Urine Bacteria Few /HPF (0-FEW) Urine Mucus Mod /LPF Nasal Screen MRSA (PCR) Positive (Negative) Glucose (Fingerstick) 98 mg/dL (70-99) Test 06/14/17 04:20 White Blood Count 6.1 x10^3/uL (4.0-11.0) Red Blood Count 4.28 x10^6/uL (3.50-5.40) Hemoglobin 13.1 g/dL (12.0-15.5) Hematocrit 39.2 % (36.0-47.0) Mean Corpuscular Volume 92 fL (79-100) Mean Corpuscular Hemoglobin 31 pg (25-35) Mean Corpuscular Hemoglobin Concent 33 g/dL (31-37) Red Cell Distribution Width 14.0 % (11.5-14.5) Platelet Count 352 x10^3/uL (140-400) Neutrophils (%) (Auto) 72 % (31-73) Lymphocytes (%) (Auto) 20 % (24-48) Monocytes (%) (Auto) 4 % (0-9) Eosinophils (%) (Auto) 3 % (0-3) Basophils (%) (Auto) 0 % (0-3) Neutrophils # (Auto) 4.4 x10^3uL (1.8-7.7) Lymphocytes # (Auto) 1.2 x10^3/uL (1.0-4.8) Monocytes # (Auto) 0.2 x10^3/uL (0.0-1.1) Eosinophils # (Auto) 0.2 x10^3/uL (0.0-0.7) Basophils # (Auto) 0.0 x10^3/uL (0.0-0.2) Sodium Level 136 mmol/L (136-145) Potassium Level 3.1 mmol/L (3.5-5.1) Chloride Level 102 mmol/L (98-107) Carbon Dioxide Level 24 mmol/L (21-32) Anion Gap 10 (6-14) Blood Urea Nitrogen 8 mg/dL (7-20) Creatinine 0.8 mg/dL (0.6-1.0) Estimated GFR (Cockcroft-Gault) 93.4 Glucose Level 95 mg/dL (70-99) Calcium Level 8.4 mg/dL (8.5-10.1) Laboratory Tests Test 06/13/17 11:06 06/13/17 12:33 06/13/17 16:15 06/13/17 20:49 White Blood Count 9.5 x10^3/uL (4.0-11.0) Red Blood Count 4.94 x10^6/uL (3.50-5.40) Hemoglobin 15.2 g/dL (12.0-15.5) Hematocrit 44.7 % (36.0-47.0) Mean Corpuscular Volume 91 fL (79-100) Mean Corpuscular Hemoglobin 31 pg (25-35) Mean Corpuscular Hemoglobin Concent 34 g/dL (31-37) Red Cell Distribution Width 14.1 % (11.5-14.5) Platelet Count 389 x10^3/uL (140-400) Neutrophils (%) (Auto) 87 % (31-73) Lymphocytes (%) (Auto) 8 % (24-48) Monocytes (%) (Auto) 3 % (0-9) Eosinophils (%) (Auto) 2 % (0-3) Basophils (%) (Auto) 0 % (0-3) Neutrophils # (Auto) 8.3 x10^3uL (1.8-7.7) Lymphocytes # (Auto) 0.8 x10^3/uL (1.0-4.8) Monocytes # (Auto) 0.3 x10^3/uL (0.0-1.1) Eosinophils # (Auto) 0.1 x10^3/uL (0.0-0.7) Basophils # (Auto) 0.0 x10^3/uL (0.0-0.2) Segmented Neutrophils % 85 % (35-66) Lymphocytes % 8 % (24-48) Monocytes % 4 % (0-10) Eosinophils % 3 % (0-5) Platelet Estimate Adequate (ADEQUATE) Sodium Level 138 mmol/L (136-145) Potassium Level 3.3 mmol/L (3.5-5.1) Chloride Level 102 mmol/L (98-107) Carbon Dioxide Level 22 mmol/L (21-32) Anion Gap 14 (6-14) Blood Urea Nitrogen 13 mg/dL (7-20) Creatinine 0.9 mg/dL (0.6-1.0) Estimated GFR (Cockcroft-Gault) 81.6 BUN/Creatinine Ratio 14 (6-20) Glucose Level 102 mg/dL (70-99) Calcium Level 9.0 mg/dL (8.5-10.1) Total Bilirubin 0.6 mg/dL (0.2-1.0) Aspartate Amino Transf (AST/SGOT) 424 U/L (15-37) Alanine Aminotransferase (ALT/SGPT) 129 U/L (14-59) Alkaline Phosphatase 74 U/L (46-116) Total Protein 7.5 g/dL (6.4-8.2) Albumin 3.4 g/dL (3.4-5.0) Albumin/Globulin Ratio 0.8 (1.0-1.7) Lipase 172 U/L (73-393) Urine Collection Type Void Urine Color Yellow Urine Clarity Clear Urine pH 6.0 Urine Specific [place] 1.020 Urine Protein Negative mg/dL (NEG-TRACE) Urine Glucose (UA) Negative mg/dL (NEG) Urine Ketones (Stick) Negative mg/dL (NEG) Urine Blood Negative (NEG) Urine Nitrite Negative (NEG) Urine Bilirubin Negative (NEG) Urine Urobilinogen Dipstick 0.2 mg/dL (0.2 mg/dL) Urine Leukocyte Esterase Negative (NEG) Urine RBC 0 /HPF (0-2) Urine WBC 1-4 /HPF (0-4) Urine Squamous Epithelial Cells Mod /LPF Urine Bacteria Few /HPF (0-FEW) Urine Mucus Mod /LPF Nasal Screen MRSA (PCR) Positive (Negative) Glucose (Fingerstick) 98 mg/dL (70-99) Test 06/14/17 04:20 White Blood Count 6.1 x10^3/uL (4.0-11.0) Red Blood Count 4.28 x10^6/uL (3.50-5.40) Hemoglobin 13.1 g/dL (12.0-15.5) Hematocrit 39.2 % (36.0-47.0) Mean Corpuscular Volume 92 fL (79-100) Mean Corpuscular Hemoglobin 31 pg (25-35) Mean Corpuscular Hemoglobin Concent 33 g/dL (31-37) Red Cell Distribution Width 14.0 % (11.5-14.5) Platelet Count 352 x10^3/uL (140-400) Neutrophils (%) (Auto) 72 % (31-73) Lymphocytes (%) (Auto) 20 % (24-48) Monocytes (%) (Auto) 4 % (0-9) Eosinophils (%) (Auto) 3 % (0-3) Basophils (%) (Auto) 0 % (0-3) Neutrophils # (Auto) 4.4 x10^3uL (1.8-7.7) Lymphocytes # (Auto) 1.2 x10^3/uL (1.0-4.8) Monocytes # (Auto) 0.2 x10^3/uL (0.0-1.1) Eosinophils # (Auto) 0.2 x10^3/uL (0.0-0.7) Basophils # (Auto) 0.0 x10^3/uL (0.0-0.2) Sodium Level 136 mmol/L (136-145) Potassium Level 3.1 mmol/L (3.5-5.1) Chloride Level 102 mmol/L (98-107) Carbon Dioxide Level 24 mmol/L (21-32) Anion Gap 10 (6-14) Blood Urea Nitrogen 8 mg/dL (7-20) Creatinine 0.8 mg/dL (0.6-1.0) Estimated GFR (Cockcroft-Gault) 93.4 Glucose Level 95 mg/dL (70-99) Calcium Level 8.4 mg/dL (8.5-10.1) VTE Prophylaxis Ordered VTE Prophylaxis Devices: No VTE Pharmacological Prophylaxi: No Assessment/Plan Assessment/Plan Pt is a 47yo AAF admitted for uncontrolled nausea and vomiting 1)Nausea and vomiting- likely 2/2 viral gastroenteritis. Continue medication for nausea and diarrhea. Cont IVF hydration. Discussed goal of possible discharge this afternoon 2)Abdominal pain- with transaminitis. DDx is broad but will get U/S to r/o gallbladder concerns. 3)Asthma exacerbation- will start IV steroids. Pt recently treated with steroids; recent exacerbations likely 2/2 cocaine use 4)Hypokalemia- will continue to replace and will restart pt's KCl 20meq 5)HTN- pt did not take medication yesterday. Will resume pt's Losartan 100mg, HCTZ 25mg, Hydralazine 50mg QID and Norvasc 10mg 6)Prediabetes- will hold pt's Metformin 7)HLD- will continue pt's Atorvastatin 8)GERD- will continue pt's Ranitidine 9)CKD Stage 2- Cr is currently better than baseline. ALLIE HINES MD Jun 14, 2017 07:59
[2017-06-14] MEDS ORDERED: POTASSIUM CHLORIDE 20 MEQ TABLET.ER. PO SCH (08:00)
[2017-06-14 08:03] LABS: ALBUMIN 2.7 g/dL (3.4-5.0); DIRECT BILIRUBIN 0.2 mg/dL (0.0-0.2); TOTAL BILIRUBIN 0.5 mg/dL (0.2-1.0); TOTAL PROTEIN 6.8 g/dL (6.4-8.2)
[2017-06-14] MEDS ORDERED: FAMOTIDINE 20 MG TABLET. PO SCH (09:00)
[2017-06-14] MEDS ORDERED: hydroCHLOROthiazide 25 MG TABLET PO SCH (09:00)
[2017-06-14] MEDS ORDERED: LOSARTAN POTASSIUM 50 MG TABLET. PO SCH (09:00)
[2017-06-14] MEDS ORDERED: ARIPiprazole 5 MG TABLET PO SCH (09:00)
[2017-06-14] MEDS ORDERED: FLUTICASONE 50MCG/NASAL SPRAY 16GM BOTTLE. NS SCH (09:00)
[2017-06-14] MEDS: methylPREDNISolone SOD SUCC PF 40 MG/ML VIAL. IV SCH ×2 (09:07→14:00)
[2017-06-14] MEDS: NICOTINE 14MG PATCH. TD SCH (09:08)
[2017-06-14] MEDS: amLODIPine BESYLATE 10 MG TABLET PO SCH (09:08)
[2017-06-14 10:31] VITALS: BP 181/91
[2017-06-14] MEDS ORDERED: POTA20TA4 PO (12:52)
[2017-06-14] MEDS ORDERED: ONDA4TAB7 PO (12:52)
[2017-06-14] MEDS ORDERED: ATOR40TA59 PO (12:52)
[2017-06-14] MEDS ORDERED: PRED-220 PO (12:52)
--- NOTE | 2017-06-14 12:56 | PDOC3 ---
*Discharge Summary* Date of Admission: Jun 13, 2017 Date of Discharge: Jun 14, 2017 Admitting Diagnosis Problems Medical Problems: (1) Abdominal pain Status: Acute (2) Diarrhea Status: Acute (3) Elevated transaminase level Status: Acute (4) Vomiting Status: Acute Problems: Final Diagnosis Nausea and vomiting- likely 2/2 viral gastroenteritis, Transaminitis, Asthma exacerbation, Hypokalemia, HTN, Prediabetes, HLD, GERD, CKD- Stage 2 CONSULTS None Procedures Acute abdominal series- WNL Abdominal U/S- not officially read, but no acute abnormalities seen by myself Brief Hospital Course Pt is a 47yo AAF admitted for uncontrolled nausea and vomiting 1)Nausea and vomiting- likely 2/2 viral gastroenteritis. Pt DC'd on medications for nausea. By lunch time on day of admission got call from nursing staff that pt was "eating everything in the refrigerator", was doing well with no ongoing vomiting or diarrhea. 2)Abdominal pain- with transaminitis, improving prior to discharge. U/S not officially read, but no acute abnormalities seen by myself. 3)Asthma exacerbation- pt started on IV steroids, DC'd on Prednisone 40mg. Pt recently treated with steroids within the last week; recent exacerbations likely 2/2 cocaine use 4)Hypokalemia- given replacement doses; pt DC'd on home dose of KCl 20meq 5)HTN- resumed pt's Losartan 100mg, HCTZ 25mg, Hydralazine 50mg QID and Norvasc 10mg 6)Prediabetes- Metformin held during admission and resumed on discharge 7)HLD- continued pt's Atorvastatin 8)GERD- continued pt's Ranitidine 9)CKD Stage 2- Cr is currently better than baseline. Disposition/Orders: D/C to Home CONDITION AT DISCHARGE: Improved, Stable Diet: Cardiac Home Meds Active Scripts Pantoprazole Sodium (PANTOPRAZOLE SODIUM) 40 Mg Tablet.dr, 40 MG PO DAILYAC for 30 Days, #30 TAB.SR Prov:KELLEN TADEO MD 03/25/17 Hydrochlorothiazide (HYDROCHLOROTHIAZIDE TABLET ) 25 Mg Tablet, 1 TAB PO DAILY, #30 TAB 5 Refills Prov:ALLIE BISWAS MD 03/14/17 Hydralazine Hcl (HYDRALAZINE HCL) 50 Mg Tablet, 50 MG PO QID for 30 Days, #120 TAB Prov:ALLIE BISWAS MD 03/14/17 Amlodipine Besylate (AMLODIPINE BESYLATE) 10 Mg Tablet, 10 MG PO DAILY for 30 Days, #30 TAB 11 Refills Prov:Bernie ANTHONY MD 01/11/17 Losartan Potassium (COZAAR) 50 Mg Tablet, 100 MG PO DAILY for 30 Days, #60 TAB 11 Refills Prov:Bernie ANTHONY MD 01/11/17 Metformin Hcl (GLUCOPHAGE) 500 Mg Tablet, 500 MG PO BIDAC for 90 Days, CAP Prov:MEDINA COVINGTON MD 12/05/13 Reported Medications Multivitamin (MULTI-DAY VITAMINS) 1 Each Tablet, 1 TAB PO DAILY, #30 TAB 04/14/16 Fluticasone Propionate (Flonase Allergy Relief) 9.9 Ml [place].susp, 2 SPRAYS NS DAILY, BOTTLE 04/14/16 Aripiprazole (ABILIFY) 5 Mg Tablet, 5 MG PO DAILY Y for ANXIETY, TAB 04/14/16 Hydrocodone Bit/Acetaminophen (HYDROCODONE-APAP 7.5-325 ) 1 Each Tablet, 1 TAB PO PRN Q6HRS Y for PAIN, TAB 0 Refills 04/14/16 Cyclobenzaprine Hcl (CYCLOBENZAPRINE HCL) 5 Mg Tablet, 1 TAB PO QHS Y for MUSCLE SPASMS, #30 TAB 04/14/16 Albuterol Sulfate (PROAIR HFA INHALER) 8.5 Gm Hfa.aer.ad, 2 PUFF INH Q4HRS Y for SHORTNESS OF BREATH, INHALER 0 Refills 04/14/16 Loratadine (LORATADINE) 10 Mg Tablet, 1 TAB PO DAILY, #30 TAB 5 Refills 04/14/16 Albuterol Sulfate (ALBUTEROL SULFATE CONC NEB SOLN) 2.5 Mg/0.5 Ml Vial.neb, 2.5 MG IH 12/01/13 Budesonide/Formoterol Fumarate (SYMBICORT 160-4.5 MCG INHALER) 10.2 Gm Hfa.aer.ad, 2 PUFF IH BID 12/01/13 Scheduled Amlodipine Besylate (Amlodipine Besylate), 10 MG PO DAILY Budesonide/Formoterol Fumarate (Symbicort 160-4.5 Mcg Inhaler), 2 PUFF IH BID, ( Reported) Fluticasone Propionate (Flonase Allergy Relief), 2 SPRAYS NS DAILY, (Reported) Hydralazine Hcl (Hydralazine Hcl), 50 MG PO QID Hydrochlorothiazide (Hydrochlorothiazide Tablet ), 1 TAB PO DAILY Loratadine (Loratadine), 1 TAB PO DAILY, (Reported) Losartan Potassium (Cozaar), 100 MG PO DAILY Metformin Hcl (Glucophage), 500 MG PO BIDAC Multivitamin (Multi-Day Vitamins), 1 TAB PO DAILY, (Reported) Pantoprazole Sodium (Pantoprazole Sodium), 40 MG PO DAILYAC Scheduled PRN Albuterol Sulfate (Proair Hfa Inhaler), 2 PUFF INH Q4HRS PRN for SHORTNESS OF BREATH, (Reported) Aripiprazole (Abilify), 5 MG PO DAILY PRN for ANXIETY, (Reported) Cyclobenzaprine Hcl (Cyclobenzaprine Hcl), 1 TAB PO QHS PRN for MUSCLE SPASMS, ( Reported) Hydrocodone Bit/Acetaminophen (Hydrocodone-Apap 7.5-325 ), 1 TAB PO PRN Q6HRS PRN for PAIN, (Reported) Miscellaneous Medications Albuterol Sulfate (Albuterol Sulfate Conc Neb Soln), 2.5 MG IH, (Reported) PCP F/u with Dr. Biswas within 7 days of discharge if needed Time Spent Total time spent with patient [] minutes for coordination of care, counseling, and education. ALLIE BISWAS MD Jun 14, 2017 12:56
--- NOTE | 2017-06-14 13:23 | RAD ---
Right upper quadrant ultrasound 06/14/2017 Indication: Upper abdominal pain Comparison study: None Discussion: Ultrasound evaluation of the right quadrant was performed. Static images were submitted to PACS. Visualized portions of the pancreas are unremarkable. The pancreas is partially visualized. Visualized portions of the aorta and IVC are unremarkable. The liver is mildly echogenic in appearance to just hepatic steatosis. The liver measures 19 cm longitudinally which is mildly enlarged. No focal hepatic lesions are seen. Portal vein appears grossly patent. The gallbladder is normal in appearance without evidence of wall thickening, stones, or sludge. The common bile duct is top normal in diameter at 5 mm. The right kidney is normal in appearance measuring 10.8 cm in length. Impression: Hepatic steatosis with mild hepatic megaly. Otherwise unremarkable right upper quadrant ultrasound
[2017-06-14] MEDS ORDERED: ATORVASTATIN CALCIUM 40 MG TABLET. PO SCH (21:00)
== END 2017-06-14 16:30 | disposition home or self-care (01) | DRG 392 ==
LOC: ER 09:40 → 4 NORTH 14:14
PROVIDERS: ADMIT Family Medicine; ATTEND Family Medicine
DX: A08.4 Viral intestinal infection, unspecified (principal); J45.901 Unspecified asthma with (acute) exacerbation; E78.5 Hyperlipidemia, unspecified; E87.6 Hypokalemia; F14.90 Cocaine use, unspecified, uncomplicated; F17.210 Nicotine dependence, cigarettes, uncomplicated; I12.9 Hypertensive chronic kidney disease with stage 1 through stage 4 chronic kidney disease, or unspecified chronic kidney disease; J44.9 Chronic obstructive pulmonary disease, unspecified; K21.9 Gastro-esophageal reflux disease without esophagitis; M10.9 Gout, unspecified; N18.2 Chronic kidney disease, stage 2 (mild); R73.03 Prediabetes; F41.9 Anxiety disorder, unspecified; F32.9 Major depressive disorder, single episode, unspecified; M19.90 Unspecified osteoarthritis, unspecified site; E78.00 Pure hypercholesterolemia, unspecified; Z98.51 Tubal ligation status; Z90.710 Acquired absence of both cervix and uterus; Z83.3 Family history of diabetes mellitus; Z82.5 Family history of asthma and other chronic lower respiratory diseases; Z82.49 Family history of ischemic heart disease and other diseases of the circulatory system
CPT/HCPCS: 36415; 74022; 76705; 80048; 80053; 80076; 81001; 82962; 83690; 85007; 85025; 87641; 93005; 94640; 96361; 96374; 96375; 96376; J0780; J2405; J2920; J3010; J7030; J7613; J7626; S0028; 99285-25

== ENCOUNTER → 2017-08-11 | Outpatient (CLI) | payer OTHER | END | disposition home or self-care (01) | LOC: MAMMO 14:24 | DX: Z12.31 Encounter for screening mammogram for malignant neoplasm of breast (principal) | CPT/HCPCS: 77067 ==

== ENCOUNTER 2017-09-14 10:01 | Emergency (ER) | payer OTHER ==
[2017-09-14] MEDS: predniSONE 20 MG TABLET PO (10:57)
[2017-09-14] MEDS: ALBUTEROL SULFATE 2.5 MG/3 ML NEBU. INH (11:31)
[2017-09-14] MEDS: IPRATRPIUM/ALBUTEROL 0.5/2.5MG 3 ML NEBU. NEB (11:31)
[2017-09-14 11:37] LABS: INFLUENZA A PATIENT NEGATIVE (NEGATIVE); INFLUENZA B PATIENT NEGATIVE (NEGATIVE); OBC FLU VALID
== END 2017-09-14 13:07 | disposition home or self-care (01) ==
LOC: ER 10:01
DX: J45.901 Unspecified asthma with (acute) exacerbation (principal); J06.9 Acute upper respiratory infection, unspecified; E11.9 Type 2 diabetes mellitus without complications; E78.00 Pure hypercholesterolemia, unspecified; J44.9 Chronic obstructive pulmonary disease, unspecified; I10 Essential (primary) hypertension; M32.9 Systemic lupus erythematosus, unspecified; Z90.710 Acquired absence of both cervix and uterus; Z91.041 Radiographic dye allergy status; Z88.8 Allergy status to other drugs, medicaments and biological substances
CPT/HCPCS: 71045; 87804; 87804-59; 94640; 99285-25; J7512; J7613; J7620

== ENCOUNTER 2017-09-26 10:05 | Inpatient (IN) | payer OTHER ==
[2017-09-26 10:35] LABS: BILIRUBIN,URINE NEGATIVE (NEG); CLARITY,URINE CLEAR; COLOR,URINE YELLOW; GLUCOSE,URINE NEGATIVE (NEG); NITRITE,URINE NEGATIVE (NEG); PROTEIN,URINE NEGATIVE (NEG-TRACE); UROBILINOGEN,URINE 0.2 mg/dL (0.2 mg/dL)
[2017-09-26 10:46] LABS: RBC,URINE 0 /HPF (0-2); WBC,URINE OCC /HPF (0-4)
[2017-09-26 10:47] LABS: ADD MAN DIFF? NO; BACTERIA,URINE 0 /HPF (0-FEW); SQUAMOUS EPITHELIAL CELL,UR MANY /LPF
[2017-09-26] MEDS: IPRATRPIUM/ALBUTEROL 0.5/2.5MG 3 ML NEBU. NEB (10:51)
[2017-09-26 10:52] LABS: BASO # 0.1 x10^3/uL (0.0-0.2); BASO % 1 % (0-3); EOS # 0.3 x10^3/uL (0.0-0.7); EOS % 4 % (0-3); HEMATOCRIT 43.1 % (36.0-47.0); HEMOGLOBIN 14.7 g/dL (12.0-15.5); LYMPH # 1.6 x10^3/uL (1.0-4.8); LYMPH % 19 % (24-48); MEAN CORPUSCULAR HEMOGLOBIN 31 pg (25-35); MEAN CORPUSCULAR HGB CONC 34 g/dL (31-37); MEAN CORPUSCULAR VOLUME 92 fL (79-100); MONO # 0.5 x10^3/uL (0.0-1.1); MONO % 6 % (0-9); NEUT # 6.2 x10^3uL (1.8-7.7); NEUT % 71 % (31-73); PLATELET COUNT 449 x10^3/uL (140-400); RED BLOOD COUNT 4.68 x10^6/uL (3.50-5.40); RED CELL DISTRIBUTION WIDTH 13.4 % (11.5-14.5); WHITE BLOOD COUNT 8.7 x10^3/uL (4.0-11.0)
[2017-09-26 11:04] LABS: ANION GAP 12 (6-14); BLOOD UREA NITROGEN 8 mg/dL (7-20); BUN/CREATININE RATIO 9 (6-20); CALCIUM 9.7 mg/dL (8.5-10.1); CARBON DIOXIDE 24 mmol/L (21-32); CHLORIDE 103 mmol/L (98-107); CREATININE 0.9 mg/dL (0.6-1.0); GFR 81.6; GLUCOSE 117 mg/dL (70-99); POTASSIUM 3.6 mmol/L (3.5-5.1); SODIUM 139 mmol/L (136-145)
[2017-09-26] MEDS: MORPHINE SULFATE 4 MG/ML DISP.SYRIN. IV ×7 (11:04→23:43)
[2017-09-26] MEDS: LABETALOL 20 MG/4 ML DISP.SYRIN. IVP ×3 (11:05→22:05)
[2017-09-26 11:10] LABS: ALBUMIN 3.3 g/dL (3.4-5.0); ALBUMIN/GLOBULIN RATIO 0.7 (1.0-1.7); ALK PHOS 94 U/L (46-116); ALT (SGPT) 47 U/L (14-59); AST (SGOT) 40 U/L (15-37); CREATINE KINASE 73 U/L (26-192); LIPASE 215 U/L (73-393); TOTAL BILIRUBIN 0.4 mg/dL (0.2-1.0); TOTAL PROTEIN 7.8 g/dL (6.4-8.2)
[2017-09-26] MEDS ORDERED: CONTRAST GIVEN MC (11:15)
[2017-09-26 11:16] LABS: TROPONINI < 0.017 ng/mL (0.000-0.055)
[2017-09-26 11:17] LABS: CKMB MASS 0.9 ng/mL (0.0-3.6); CREATINE KINASE 66 U/L (26-192)
[2017-09-26] MEDS: IOHEXOL 300 MG/ML 100ML VIAL. IV (11:20)
[2017-09-26] MEDS: ONDANSETRON PF 4 MG/2 ML VIAL. IV (11:41)
[2017-09-26] MEDS ORDERED: ACETAMINOPHEN 325 MG TABLET. PO (12:45)
[2017-09-26] MEDS ORDERED: ONDANSETRON PF 4 MG/2 ML VIAL. IV (12:45)
[2017-09-26 16:59] LABS: POC GLUCOSE 91 mg/dL (70-99)
[2017-09-26 20:14] LABS: TROPONINI < 0.017 ng/mL (0.000-0.055)
[2017-09-26 20:35] LABS: POC GLUCOSE 128 mg/dL (70-99)
[2017-09-26 21:51] LABS: POC GLUCOSE 160 mg/dL (70-99)
[2017-09-27] MEDS: MORPHINE SULFATE 4 MG/ML DISP.SYRIN. IV ×6 (03:28→11:53)
[2017-09-27 04:47] LABS: ADD MAN DIFF? NO
[2017-09-27] MEDS: LABETALOL 20 MG/4 ML DISP.SYRIN. IVP (04:57)
[2017-09-27 04:59] LABS: BASO # 0.1 x10^3/uL (0.0-0.2); BASO % 1 % (0-3); EOS # 0.3 x10^3/uL (0.0-0.7); EOS % 4 % (0-3); HEMATOCRIT 40.3 % (36.0-47.0); HEMOGLOBIN 13.6 g/dL (12.0-15.5); LYMPH # 2.1 x10^3/uL (1.0-4.8); LYMPH % 25 % (24-48); MEAN CORPUSCULAR HEMOGLOBIN 31 pg (25-35); MEAN CORPUSCULAR HGB CONC 34 g/dL (31-37); MEAN CORPUSCULAR VOLUME 92 fL (79-100); MONO # 0.9 x10^3/uL (0.0-1.1); MONO % 10 % (0-9); NEUT # 5.2 x10^3uL (1.8-7.7); NEUT % 61 % (31-73); PLATELET COUNT 416 x10^3/uL (140-400); RED BLOOD COUNT 4.39 x10^6/uL (3.50-5.40); RED CELL DISTRIBUTION WIDTH 13.3 % (11.5-14.5); WHITE BLOOD COUNT 8.5 x10^3/uL (4.0-11.0)
[2017-09-27 06:05] LABS: ALBUMIN 2.9 g/dL (3.4-5.0); ALBUMIN/GLOBULIN RATIO 0.6 (1.0-1.7); ALK PHOS 80 U/L (46-116); ALT (SGPT) 41 U/L (14-59); ANION GAP 10 (6-14); AST (SGOT) 48 U/L (15-37); BLOOD UREA NITROGEN 5 mg/dL (7-20); BUN/CREATININE RATIO 6 (6-20); CALCIUM 9.4 mg/dL (8.5-10.1); CARBON DIOXIDE 26 mmol/L (21-32); CHLORIDE 101 mmol/L (98-107); CREATININE 0.8 mg/dL (0.6-1.0); GFR 93.4; GLUCOSE 112 mg/dL (70-99); POTASSIUM 3.6 mmol/L (3.5-5.1); SODIUM 137 mmol/L (136-145); TOTAL BILIRUBIN 0.4 mg/dL (0.2-1.0); TOTAL PROTEIN 7.5 g/dL (6.4-8.2)
[2017-09-27] MEDS ORDERED: ONDANSETRON PF 4 MG/2 ML VIAL. IV ×2 (07:00→11:15)
[2017-09-27] MEDS ORDERED: LIDOCAINE 1% PF 2 ML VIAL. ID (07:00)
[2017-09-27] MEDS ORDERED: HYDROmorphone 2 MG/ML VIAL IV (07:00)
[2017-09-27] MEDS ORDERED: fentaNYL PF VIAL 100 MCG/2 ML VIAL IV (07:00)
[2017-09-27] MEDS ORDERED: PROCHLORPERAZINE 10 MG/2 ML VIAL. IV (07:00)
[2017-09-27 07:45] LABS: POC GLUCOSE 114 mg/dL (70-99)
[2017-09-27] MEDS ORDERED: hydrALAZINE 20 MG/ML VIAL. IVP (08:00)
[2017-09-27] MEDS: IV RINGERS,LACTATED 1000ML 1,000 ML IV (09:30)
[2017-09-27] MEDS ORDERED: SUCCINYLCHOLINE 200 MG/10 ML VIAL. (09:50)
[2017-09-27] MEDS ORDERED: fentaNYL PF VIAL 100 MCG/2 ML VIAL ×2 (09:50→10:57)
[2017-09-27] MEDS ORDERED: DEXAMETHASONE SOD PHOS 20 MG/5 ML VIAL. (09:50)
[2017-09-27] MEDS ORDERED: PROPOFOL 20 ML IV ×2 (09:50→10:15)
[2017-09-27] MEDS ORDERED: ROCURONIUM 50 MG/5 ML VIAL. (09:50)
[2017-09-27] MEDS ORDERED: MIDAZOLAM HCL/PF 2 MG/2 ML VIAL. (09:51)
[2017-09-27] MEDS: BUPIVAC MPF-EPI 0.5%-1:200000 30 ML VIAL. INJ (10:08)
[2017-09-27] MEDS ORDERED: LABETALOL 20 MG/4 ML DISP.SYRIN. (10:24)
[2017-09-27] MEDS ORDERED: SEVOFLURANE 61 TO 120 MINUTES. IH (10:28)
[2017-09-27] MEDS ORDERED: NEOSTIGMINE 10 MG/10 ML VIAL. (10:43)
[2017-09-27] MEDS ORDERED: GLYCOPYRROLATE 1 MG/5 ML VIAL. (10:43)
[2017-09-27] MEDS ORDERED: ONDANSETRON PF 4 MG/2 ML VIAL. (10:44)
[2017-09-27] MEDS ORDERED: KETOROLAC 30 MG/ML INJ FOR OR. INJ (10:53)
[2017-09-27] MEDS: fentaNYL PF VIAL 100 MCG/2 ML VIAL IV ×2 (11:08→11:23)
[2017-09-27] MEDS ORDERED: 0.9 % SODIUM CHLORIDE 10 ML DISP.SYRIN. IV (11:15)
[2017-09-27] MEDS ORDERED: DEXTROSE 50% 25 GM / 50ML DISP.SYRIN. IV (11:15)
[2017-09-27] MEDS ORDERED: diphenhydrAMINE 50 MG/ML VIAL IV (11:15)
[2017-09-27] MEDS: ENOXAPARIN 40 MG/0.4 ML SYRINGE. SQ (11:15)
[2017-09-27] MEDS ORDERED: MORPHINE SULFATE 4 MG/ML DISP.SYRIN. (11:21)
[2017-09-27] MEDS: MORPHINE SULFATE 10 MG/ML VIAL. IV ×2 (13:34→20:08)
[2017-09-27] MEDS: POTASSIUM CL 20MEQ-0.45% NACL 1,000 ML IV ×2 (13:39→21:14)
[2017-09-27 16:30] LABS: POC GLUCOSE 160 mg/dL (70-99)
[2017-09-27 20:36] LABS: POC GLUCOSE 149 mg/dL (70-99)
[2017-09-27] MEDS: DOCUSATE SODIUM 100 MG CAPSULE. PO (21:00)
[2017-09-27] MEDS: oxyCODONE/APAP 5/325 1 TAB TABLET PO (21:18)
[2017-09-28] MEDS: MORPHINE SULFATE 10 MG/ML VIAL. IV ×2 (00:23→04:03)
[2017-09-28 01:11] LABS: MRSA BY PCR Positive (Negative)
[2017-09-28 07:26] LABS: POC GLUCOSE 145 mg/dL (70-99)
[2017-09-28] MEDS: oxyCODONE/APAP 5/325 1 TAB TABLET PO ×3 (07:48→18:22)
[2017-09-28] MEDS: DOCUSATE SODIUM 100 MG CAPSULE. PO ×2 (07:50→20:52)
[2017-09-28] MEDS: ENOXAPARIN 40 MG/0.4 ML SYRINGE. SQ (07:50)
[2017-09-28 08:31] LABS: ADD MAN DIFF? NO
[2017-09-28 08:45] LABS: BASO # 0.1 x10^3/uL (0.0-0.2); BASO % 0 % (0-3); EOS % 0 % (0-3); HEMATOCRIT 36.7 % (36.0-47.0); HEMOGLOBIN 12.5 g/dL (12.0-15.5); LYMPH # 1.6 x10^3/uL (1.0-4.8); LYMPH % 11 % (24-48); MEAN CORPUSCULAR HEMOGLOBIN 31 pg (25-35); MEAN CORPUSCULAR HGB CONC 34 g/dL (31-37); MEAN CORPUSCULAR VOLUME 92 fL (79-100); MONO # 0.9 x10^3/uL (0.0-1.1); MONO % 6 % (0-9); NEUT # 12.2 x10^3uL (1.8-7.7); NEUT % 83 % (31-73); PLATELET COUNT 401 x10^3/uL (140-400); RED BLOOD COUNT 3.99 x10^6/uL (3.50-5.40); RED CELL DISTRIBUTION WIDTH 13.2 % (11.5-14.5); WHITE BLOOD COUNT 14.7 x10^3/uL (4.0-11.0)
[2017-09-28 09:02] LABS: ANION GAP 9 (6-14); BLOOD UREA NITROGEN 7 mg/dL (7-20); CALCIUM 9.5 mg/dL (8.5-10.1); CARBON DIOXIDE 27 mmol/L (21-32); CHLORIDE 102 mmol/L (98-107); GFR 72.2; GLUCOSE 149 mg/dL (70-99); SODIUM 138 mmol/L (136-145)
[2017-09-28] MEDS: diphenhydrAMINE HCL 25 MG CAPSULE PO ×3 (09:22→18:24)
[2017-09-28 11:51] LABS: POC GLUCOSE 128 mg/dL (70-99)
[2017-09-28] MEDS: PIPERACILLIN/TAZOBACTAM 3.375 GM in IV NORMAL SALINE 50ML 50 ML IV ×2 (13:00→18:23)
[2017-09-28 17:04] LABS: POC GLUCOSE 110 mg/dL (70-99)
[2017-09-28] MEDS ORDERED: ARIPiprazole 5 MG TABLET PO (19:30)
[2017-09-28] MEDS ORDERED: NON FORMULARY ITEM (Albuterol Sulfate (Proair Hfa Inhaler) 2 PUFF) INH (19:30)
[2017-09-28] MEDS ORDERED: ALBUTEROL SULFATE 2.5 MG/3 ML NEBU. NEB (19:45)
[2017-09-28] MEDS: LOSARTAN POTASSIUM 50 MG TABLET. PO (20:51)
[2017-09-28] MEDS: ATORVASTATIN CALCIUM 40 MG TABLET. PO (20:51)
[2017-09-28] MEDS: amLODIPine BESYLATE 10 MG TABLET PO (20:52)
[2017-09-28] MEDS: metFORMIN 500 MG TABLET PO (20:52)
[2017-09-28] MEDS: CYCLOBENZAPRINE 10 MG TABLET. PO (20:52)
[2017-09-28 20:53] LABS: POC GLUCOSE 147 mg/dL (70-99)
[2017-09-28] MEDS: PANTOPRAZOLE 40 MG TABLET.DR. PO (20:53)
[2017-09-28] MEDS: CETIRIZINE HCL 10 MG TABLET. PO (20:53)
[2017-09-28] MEDS: hydroCHLOROthiazide 25 MG TABLET PO (20:58)
[2017-09-28] MEDS ORDERED: NON FORMULARY ITEM (Budesonide/Formoterol Fumarate (Symbicort 160-4.5 Mcg Inhaler) 2 PUFF) IH (21:00)
[2017-09-28] MEDS: BUDESONIDE 0.5 MG/2 ML NEBU. NEB (21:09)
[2017-09-28] MEDS: ALBUTEROL SULFATE 2.5 MG/3 ML NEBU. NEB (21:09)
[2017-09-28] MEDS: HYDROcodone/APAP 7.5/325MG 1 TAB TABLET PO (22:32)
[2017-09-29 04:34] LABS: ADD MAN DIFF? NO
[2017-09-29 04:37] LABS: BASO % 0 % (0-3); EOS # 0.3 x10^3/uL (0.0-0.7); EOS % 4 % (0-3); HEMATOCRIT 35.9 % (36.0-47.0); HEMOGLOBIN 12.3 g/dL (12.0-15.5); LYMPH % 23 % (24-48); MEAN CORPUSCULAR HEMOGLOBIN 31 pg (25-35); MEAN CORPUSCULAR HGB CONC 34 g/dL (31-37); MEAN CORPUSCULAR VOLUME 92 fL (79-100); MONO # 0.7 x10^3/uL (0.0-1.1); MONO % 8 % (0-9); NEUT # 5.8 x10^3uL (1.8-7.7); NEUT % 65 % (31-73); PLATELET COUNT 371 x10^3/uL (140-400); RED BLOOD COUNT 3.91 x10^6/uL (3.50-5.40); RED CELL DISTRIBUTION WIDTH 13.1 % (11.5-14.5); WHITE BLOOD COUNT 8.9 x10^3/uL (4.0-11.0)
[2017-09-29 04:50] LABS: ANION GAP 7 (6-14); BLOOD UREA NITROGEN 8 mg/dL (7-20); CARBON DIOXIDE 29 mmol/L (21-32); CHLORIDE 103 mmol/L (98-107); CREATININE 0.9 mg/dL (0.6-1.0); GFR 81.6; GLUCOSE 120 mg/dL (70-99); POTASSIUM 3.6 mmol/L (3.5-5.1); SODIUM 139 mmol/L (136-145)
[2017-09-29] MEDS: metFORMIN 500 MG TABLET PO ×2 (05:22→16:37)
[2017-09-29] MEDS: PIPERACILLIN/TAZOBACTAM 3.375 GM in IV NORMAL SALINE 50ML 50 ML IV ×4 (05:22→18:27)
[2017-09-29] MEDS: PANTOPRAZOLE 40 MG TABLET.DR. PO (05:22)
[2017-09-29] MEDS: HYDROcodone/APAP 7.5/325MG 1 TAB TABLET PO (05:22)
[2017-09-29 07:20] LABS: POC GLUCOSE 128 mg/dL (70-99)
[2017-09-29] MEDS: ALBUTEROL SULFATE 2.5 MG/3 ML NEBU. NEB ×4 (07:46→21:25)
[2017-09-29] MEDS: BUDESONIDE 0.5 MG/2 ML NEBU. NEB ×2 (07:46→21:25)
[2017-09-29] MEDS: DOCUSATE SODIUM 100 MG CAPSULE. PO ×3 (09:00→21:00)
[2017-09-29] MEDS: hydroCHLOROthiazide 25 MG TABLET PO (09:09)
[2017-09-29] MEDS: FLUTICASONE 50MCG/NASAL SPRAY 16GM BOTTLE. NS (09:09)
[2017-09-29] MEDS: MULTIVITAMIN with MINERAL TABLET. PO (09:10)
[2017-09-29] MEDS: POTASSIUM CHLORIDE 20 MEQ TABLET.ER. PO (09:11)
[2017-09-29] MEDS: LOSARTAN POTASSIUM 50 MG TABLET. PO (09:11)
[2017-09-29] MEDS: CETIRIZINE HCL 10 MG TABLET. PO (09:12)
[2017-09-29] MEDS: amLODIPine BESYLATE 10 MG TABLET PO (09:12)
[2017-09-29] MEDS: predniSONE 20 MG TABLET PO (09:17)
[2017-09-29] MEDS: oxyCODONE/APAP 10/325 1 TAB TABLET PO ×3 (11:07→19:42)
[2017-09-29] MEDS: ENOXAPARIN 40 MG/0.4 ML SYRINGE. SQ (11:52)
[2017-09-29 12:51] LABS: POC GLUCOSE 118 mg/dL (70-99)
[2017-09-29 17:03] LABS: POC GLUCOSE 164 mg/dL (70-99)
[2017-09-29 20:51] LABS: POC GLUCOSE 203 mg/dL (70-99)
[2017-09-29] MEDS: LACTOBACILLUS RHAMNOSUS GG 1 CAPSULE. PO (21:37)
[2017-09-29] MEDS: CYCLOBENZAPRINE 10 MG TABLET. PO (21:37)
[2017-09-29] MEDS: ATORVASTATIN CALCIUM 40 MG TABLET. PO (21:38)
[2017-09-30] MEDS: oxyCODONE/APAP 10/325 1 TAB TABLET PO ×2 (00:07→05:21)
[2017-09-30] MEDS: PIPERACILLIN/TAZOBACTAM 3.375 GM in IV NORMAL SALINE 50ML 50 ML IV ×2 (00:08→05:22)
[2017-09-30 05:08] LABS: ADD MAN DIFF? NO
[2017-09-30 05:17] LABS: BASO % 0 % (0-3); EOS # 0.2 x10^3/uL (0.0-0.7); EOS % 2 % (0-3); HEMATOCRIT 37.7 % (36.0-47.0); HEMOGLOBIN 12.6 g/dL (12.0-15.5); LYMPH # 1.6 x10^3/uL (1.0-4.8); LYMPH % 13 % (24-48); MEAN CORPUSCULAR HEMOGLOBIN 31 pg (25-35); MEAN CORPUSCULAR HGB CONC 33 g/dL (31-37); MEAN CORPUSCULAR VOLUME 93 fL (79-100); MONO # 0.7 x10^3/uL (0.0-1.1); MONO % 6 % (0-9); NEUT # 9.7 x10^3uL (1.8-7.7); NEUT % 79 % (31-73); PLATELET COUNT 417 x10^3/uL (140-400); RED BLOOD COUNT 4.05 x10^6/uL (3.50-5.40); RED CELL DISTRIBUTION WIDTH 13.2 % (11.5-14.5); WHITE BLOOD COUNT 12.2 x10^3/uL (4.0-11.0)
[2017-09-30 05:50] LABS: ANION GAP 9 (6-14); BLOOD UREA NITROGEN 7 mg/dL (7-20); CALCIUM 9.6 mg/dL (8.5-10.1); CARBON DIOXIDE 28 mmol/L (21-32); CHLORIDE 101 mmol/L (98-107); CREATININE 0.9 mg/dL (0.6-1.0); GFR 81.6; GLUCOSE 158 mg/dL (70-99); POTASSIUM 3.4 mmol/L (3.5-5.1); SODIUM 138 mmol/L (136-145)
[2017-09-30] MEDS: ALBUTEROL SULFATE 2.5 MG/3 ML NEBU. NEB (07:27)
[2017-09-30] MEDS: BUDESONIDE 0.5 MG/2 ML NEBU. NEB (07:27)
[2017-09-30] MEDS: metFORMIN 500 MG TABLET PO (07:30)
[2017-09-30 07:40] LABS: POC GLUCOSE 94 mg/dL (70-99)
[2017-09-30] MEDS: POTASSIUM CHLORIDE 20 MEQ TABLET.ER. PO (08:00)
[2017-09-30] MEDS: CETIRIZINE HCL 10 MG TABLET. PO (08:29)
[2017-09-30] MEDS: LOSARTAN POTASSIUM 50 MG TABLET. PO (08:29)
[2017-09-30] MEDS: PANTOPRAZOLE 40 MG TABLET.DR. PO (08:29)
[2017-09-30] MEDS: predniSONE 20 MG TABLET PO (08:29)
[2017-09-30] MEDS: LACTOBACILLUS RHAMNOSUS GG 1 CAPSULE. PO (08:29)
[2017-09-30] MEDS: amLODIPine BESYLATE 10 MG TABLET PO (08:30)
[2017-09-30] MEDS: hydroCHLOROthiazide 25 MG TABLET PO (08:30)
[2017-09-30] MEDS: DOCUSATE SODIUM 100 MG CAPSULE. PO (08:36)
[2017-09-30] MEDS: MULTIVITAMIN with MINERAL TABLET. PO (08:36)
[2017-09-30] MEDS: FLUTICASONE 50MCG/NASAL SPRAY 16GM BOTTLE. NS (08:36)
== END 2017-09-30 10:15 | disposition home or self-care (01) | DRG 341 ==
LOC: ER 10:05 → 4 NORTH 12:31
PROC: 0DTJ4ZZ Resection of Appendix, Percutaneous Endoscopic Approach (ICD-10-PCS; principal; 2017-09-27 09:53)
DX: K35.80 Unspecified acute appendicitis (principal); R65.11 Systemic inflammatory response syndrome (SIRS) of non-infectious origin with acute organ dysfunction; E11.22 Type 2 diabetes mellitus with diabetic chronic kidney disease; K66.0 Peritoneal adhesions (postprocedural) (postinfection); E78.5 Hyperlipidemia, unspecified; F32.9 Major depressive disorder, single episode, unspecified; F41.9 Anxiety disorder, unspecified; G89.29 Other chronic pain; I12.9 Hypertensive chronic kidney disease with stage 1 through stage 4 chronic kidney disease, or unspecified chronic kidney disease; Z88.8 Allergy status to other drugs, medicaments and biological substances; G43.909 Migraine, unspecified, not intractable, without status migrainosus; N18.9 Chronic kidney disease, unspecified; M10.9 Gout, unspecified; M54.5 Low back pain; J44.9 Chronic obstructive pulmonary disease, unspecified; K21.9 Gastro-esophageal reflux disease without esophagitis; M19.90 Unspecified osteoarthritis, unspecified site; Z87.01 Personal history of pneumonia (recurrent); Z82.49 Family history of ischemic heart disease and other diseases of the circulatory system; Z82.5 Family history of asthma and other chronic lower respiratory diseases; Z83.3 Family history of diabetes mellitus; Z90.710 Acquired absence of both cervix and uterus
CPT/HCPCS: 36415; 71046; 74177; 76705; 80048; 80053; 81001; 82550; 82553; 82962; 83690; 84484; 85025; 87641; 88304; 93005; 94640; 96374; 96375; 96376; 97161-GP; 99285; 99285-25; J0330; J0694; J1100; J1650; J1885; J2250; J2270; J2405; J2543; J2704; J2710; J3010; J3490; J7030; J7120; J7512; J7613; J7620; J7626; Q0163; Q9967

== ENCOUNTER 2017-12-07 10:10 | Emergency (ER) | payer OTHER ==
[2017-12-07 10:36] LABS: ADD MAN DIFF? NO
[2017-12-07 10:50] LABS: BASO # 0.1 x10^3/uL (0.0-0.2); BASO % 1 % (0-3); EOS # 0.5 x10^3/uL (0.0-0.7); EOS % 7 % (0-3); HEMATOCRIT 41.6 % (36.0-47.0); HEMOGLOBIN 14.4 g/dL (12.0-15.5); LYMPH # 1.7 x10^3/uL (1.0-4.8); LYMPH % 24 % (24-48); MEAN CORPUSCULAR HEMOGLOBIN 32 pg (25-35); MEAN CORPUSCULAR HGB CONC 35 g/dL (31-37); MEAN CORPUSCULAR VOLUME 92 fL (79-100); MONO # 0.4 x10^3/uL (0.0-1.1); MONO % 6 % (0-9); NEUT # 4.3 x10^3uL (1.8-7.7); NEUT % 62 % (31-73); PLATELET COUNT 367 x10^3/uL (140-400); RED BLOOD COUNT 4.53 x10^6/uL (3.50-5.40); RED CELL DISTRIBUTION WIDTH 13.9 % (11.5-14.5)
[2017-12-07 10:53] LABS: ANION GAP 15 (6-14); BLOOD UREA NITROGEN 6 mg/dL (7-20); CALCIUM 9.4 mg/dL (8.5-10.1); CARBON DIOXIDE 23 mmol/L (21-32); CHLORIDE 102 mmol/L (98-107); CREATININE 0.8 mg/dL (0.6-1.0); GFR 93.4; GLUCOSE 115 mg/dL (70-99); POTASSIUM 3.5 mmol/L (3.5-5.1); SODIUM 140 mmol/L (136-145)
[2017-12-07] MEDS: IPRATRPIUM/ALBUTEROL 0.5/2.5MG 3 ML NEBU. NEB (10:59)
[2017-12-07 11:01] LABS: TROPONINI < 0.017 ng/mL (0.000-0.055)
[2017-12-07] MEDS: KETOROLAC 15 MG/ML VIAL. IV (11:09)
== END 2017-12-07 12:48 | disposition home or self-care (01) ==
LOC: ER 10:10
DX: R07.1 Chest pain on breathing (principal); R06.02 Shortness of breath; R05 Cough; E78.00 Pure hypercholesterolemia, unspecified; J44.9 Chronic obstructive pulmonary disease, unspecified; E11.9 Type 2 diabetes mellitus without complications; I10 Essential (primary) hypertension; M32.9 Systemic lupus erythematosus, unspecified; Z90.710 Acquired absence of both cervix and uterus; Z90.49 Acquired absence of other specified parts of digestive tract; Z88.8 Allergy status to other drugs, medicaments and biological substances; Z91.041 Radiographic dye allergy status
CPT/HCPCS: 36415; 71045; 80048; 84484; 85025; 93005; 94640; 96374; 99285-25; J1885; J7620

== ENCOUNTER 2017-12-18 02:48 | Emergency (ER) | payer OTHER ==
[2017-12-18 03:21] LABS: POC GLUCOSE 112 mg/dL (70-99)
[2017-12-18 03:22] LABS: ADD MAN DIFF? NO
[2017-12-18 03:26] LABS: BASO # 0.1 x10^3/uL (0.0-0.2); BASO % 1 % (0-3); EOS # 0.3 x10^3/uL (0.0-0.7); EOS % 3 % (0-3); HEMATOCRIT 39.7 % (36.0-47.0); LYMPH # 2.7 x10^3/uL (1.0-4.8); LYMPH % 30 % (24-48); MEAN CORPUSCULAR HEMOGLOBIN 32 pg (25-35); MEAN CORPUSCULAR HGB CONC 35 g/dL (31-37); MEAN CORPUSCULAR VOLUME 91 fL (79-100); MONO # 0.7 x10^3/uL (0.0-1.1); MONO % 8 % (0-9); NEUT # 5.1 x10^3uL (1.8-7.7); NEUT % 58 % (31-73); PLATELET COUNT 543 x10^3/uL (140-400); RED BLOOD COUNT 4.37 x10^6/uL (3.50-5.40); RED CELL DISTRIBUTION WIDTH 13.8 % (11.5-14.5); WHITE BLOOD COUNT 8.8 x10^3/uL (4.0-11.0)
[2017-12-18 03:33] LABS: ANION GAP 13 (6-14); BLOOD UREA NITROGEN 11 mg/dL (7-20); BUN/CREATININE RATIO 12 (6-20); CALCIUM 9.3 mg/dL (8.5-10.1); CARBON DIOXIDE 23 mmol/L (21-32); CHLORIDE 101 mmol/L (98-107); CREATININE 0.9 mg/dL (0.6-1.0); GFR 81.6; GLUCOSE 100 mg/dL (70-99); POTASSIUM 3.4 mmol/L (3.5-5.1); SODIUM 137 mmol/L (136-145)
[2017-12-18] MEDS: GLUCAGON,HUMAN RECOMBINANT 1 MG/ML VIAL. IV (03:33)
[2017-12-18] MEDS: ONDANSETRON PF 4 MG/2 ML VIAL. IV (03:34)
[2017-12-18 03:40] LABS: ALBUMIN 3.4 g/dL (3.4-5.0); ALBUMIN/GLOBULIN RATIO 0.6 (1.0-1.7); ALK PHOS 87 U/L (46-116); ALT (SGPT) 59 U/L (14-59); AST (SGOT) 59 U/L (15-37); TOTAL BILIRUBIN 0.2 mg/dL (0.2-1.0); TOTAL PROTEIN 8.8 g/dL (6.4-8.2)
[2017-12-18] MEDS: IV NORMAL SALINE 1000ML BAG 1,000 ML IV (03:43)
== END 2017-12-18 04:13 | disposition home or self-care (01) ==
LOC: ER 02:48
DX: K22.2 Esophageal obstruction (principal); E11.9 Type 2 diabetes mellitus without complications; J44.9 Chronic obstructive pulmonary disease, unspecified; I10 Essential (primary) hypertension; E78.00 Pure hypercholesterolemia, unspecified; M32.9 Systemic lupus erythematosus, unspecified; Z90.49 Acquired absence of other specified parts of digestive tract; Z90.710 Acquired absence of both cervix and uterus; Z88.8 Allergy status to other drugs, medicaments and biological substances; Z91.041 Radiographic dye allergy status; X58.XXXA Exposure to other specified factors, initial encounter; Y93.89 Activity, other specified; Y99.8 Other external cause status; Y92.89 Other specified places as the place of occurrence of the external cause
CPT/HCPCS: 36415; 71045; 80053; 82962; 85025; 96374; 96375; 99285-25; J1610; J2405; J7030

== ENCOUNTER 2017-12-27 09:49 | Emergency (ER) | payer OTHER ==
[2017-12-27 10:32] LABS: BILIRUBIN,URINE SMALL (NEG); CLARITY,URINE CLEAR; COLOR,URINE AMBER; GLUCOSE,URINE NEGATIVE (NEG); NITRITE,URINE NEGATIVE (NEG); PROTEIN,URINE 100 mg/dL (NEG-TRACE)
[2017-12-27 10:42] LABS: SQUAMOUS EPITHELIAL CELL,UR MOD /LPF
[2017-12-27 10:43] LABS: BACTERIA,URINE MODERATE /HPF (0-FEW); WBC,URINE OCC /HPF (0-4)
[2017-12-27] MEDS: ONDANSETRON PF 4 MG/2 ML VIAL. IV (11:43)
[2017-12-27] MEDS: KETOROLAC 30 MG/ML INJ. IV (11:44)
[2017-12-27] MEDS: MORPHINE SULFATE 10 MG/ML VIAL. IV (11:44)
[2017-12-27 11:46] LABS: ADD MAN DIFF? NO
[2017-12-27 11:49] LABS: BASO # 0.1 x10^3/uL (0.0-0.2); BASO % 0 % (0-3); EOS # 0.1 x10^3/uL (0.0-0.7); EOS % 1 % (0-3); HEMATOCRIT 41.6 % (36.0-47.0); HEMOGLOBIN 14.4 g/dL (12.0-15.5); LYMPH # 1.6 x10^3/uL (1.0-4.8); LYMPH % 12 % (24-48); MEAN CORPUSCULAR HEMOGLOBIN 32 pg (25-35); MEAN CORPUSCULAR HGB CONC 35 g/dL (31-37); MEAN CORPUSCULAR VOLUME 91 fL (79-100); MONO # 0.8 x10^3/uL (0.0-1.1); MONO % 6 % (0-9); NEUT # 10.8 x10^3uL (1.8-7.7); NEUT % 81 % (31-73); PLATELET COUNT 431 x10^3/uL (140-400); RED BLOOD COUNT 4.54 x10^6/uL (3.50-5.40); RED CELL DISTRIBUTION WIDTH 14.1 % (11.5-14.5); WHITE BLOOD COUNT 13.4 x10^3/uL (4.0-11.0)
[2017-12-27 12:15] LABS: ANION GAP 12 (6-14); BLOOD UREA NITROGEN 8 mg/dL (7-20); BUN/CREATININE RATIO 8 (6-20); CALCIUM 9.3 mg/dL (8.5-10.1); CARBON DIOXIDE 24 mmol/L (21-32); CHLORIDE 99 mmol/L (98-107); GFR 72.2; GLUCOSE 113 mg/dL (70-99); POTASSIUM 3.1 mmol/L (3.5-5.1); SODIUM 135 mmol/L (136-145)
[2017-12-27 12:17] LABS: ETHANOL < 10 mg/dL (0-10)
[2017-12-27 12:21] LABS: ALBUMIN 3.1 g/dL (3.4-5.0); ALBUMIN/GLOBULIN RATIO 0.6 (1.0-1.7); ALK PHOS 97 U/L (46-116); ALT (SGPT) 45 U/L (14-59); AST (SGOT) 45 U/L (15-37); LIPASE 161 U/L (73-393); TOTAL BILIRUBIN 0.7 mg/dL (0.2-1.0); TOTAL PROTEIN 8.4 g/dL (6.4-8.2)
[2017-12-27 12:30] LABS: BARBITURATES NEG (NEG); BENZODIAZEPINES NEG (NEG); CANNABINOIDS POS (NEG); COCAINE POS (NEG); METHADONE NEG (NEG); OPIATES NEG (NEG); PHENCYCLIDINE NEG (NEG)
[2017-12-27 12:32] LABS: AMPHETAMINE/METHAMPHETAMINE NEG (NEG); ETHANOL, URINE NEG (NEG)
[2017-12-27] MEDS: POTASSIUM CHLORIDE 20 MEQ TABLET.ER. PO ×2 (12:45→13:22)
[2017-12-27] MEDS: POTASSIUM CHLORIDE 20 MEQ/15 ML ORAL LIQUID. PO (13:31)
== END 2017-12-27 14:18 | disposition home or self-care (01) ==
LOC: ER 09:49
DX: R10.9 Unspecified abdominal pain (principal); I10 Essential (primary) hypertension; E87.6 Hypokalemia; F14.10 Cocaine abuse, uncomplicated; F12.10 Cannabis abuse, uncomplicated; J44.9 Chronic obstructive pulmonary disease, unspecified; E11.9 Type 2 diabetes mellitus without complications; E78.00 Pure hypercholesterolemia, unspecified; M32.9 Systemic lupus erythematosus, unspecified; Z90.49 Acquired absence of other specified parts of digestive tract; Z90.710 Acquired absence of both cervix and uterus; Z88.8 Allergy status to other drugs, medicaments and biological substances; Z91.041 Radiographic dye allergy status
CPT/HCPCS: 36415; 74176; 80053; 80307; 81001; 83690; 85025; 87086; 96374; 96375; 99285-25; G0480; J1885; J2270; J2405

== ENCOUNTER 2018-01-01 09:57 | Emergency (ER) | payer OTHER | END 2018-01-01 10:51 | disposition home or self-care (01) | LOC: ER 10:51 | DX: M25.512 Pain in left shoulder (principal); M25.511 Pain in right shoulder; J44.9 Chronic obstructive pulmonary disease, unspecified; E11.9 Type 2 diabetes mellitus without complications; E78.00 Pure hypercholesterolemia, unspecified; I10 Essential (primary) hypertension; Z88.8 Allergy status to other drugs, medicaments and biological substances; Z91.041 Radiographic dye allergy status | CPT/HCPCS: 99283 ==

== ENCOUNTER 2018-02-02 10:17 | Emergency (ER) | payer OTHER ==
[2018-02-02] MEDS: IPRATRPIUM/ALBUTEROL 0.5/2.5MG 3 ML NEBU. NEB (11:29)
[2018-02-02] MEDS: predniSONE 20 MG TABLET PO (11:39)
== END 2018-02-02 13:10 | disposition home or self-care (01) ==
LOC: ER 13:10
DX: J44.1 Chronic obstructive pulmonary disease with (acute) exacerbation (principal); E78.00 Pure hypercholesterolemia, unspecified; E11.9 Type 2 diabetes mellitus without complications; I10 Essential (primary) hypertension; M32.9 Systemic lupus erythematosus, unspecified
CPT/HCPCS: 71046; 94640; 99284-25; J7512; J7620

== ENCOUNTER 2018-02-04 19:30 | Inpatient (IN) | payer OTHER ==
[2018-02-04] MEDS: HYDROcodone/APAP 5/325MG 1 TAB TABLET PO (20:45)
[2018-02-04] MEDS: IPRATRPIUM/ALBUTEROL 0.5/2.5MG 3 ML NEBU. NEB ×2 (20:45→23:00)
[2018-02-04 20:59] LABS: ADD MAN DIFF? NO
[2018-02-04 21:03] LABS: BASO % 0 % (0-3); EOS % 0 % (0-3); HEMOGLOBIN 14.7 g/dL (12.0-15.5); LYMPH # 1.6 x10^3/uL (1.0-4.8); LYMPH % 17 % (24-48); MEAN CORPUSCULAR HEMOGLOBIN 31 pg (25-35); MEAN CORPUSCULAR HGB CONC 34 g/dL (31-37); MEAN CORPUSCULAR VOLUME 90 fL (79-100); MONO # 0.6 x10^3/uL (0.0-1.1); MONO % 6 % (0-9); NEUT % 76 % (31-73); PLATELET COUNT 386 x10^3/uL (140-400); RED BLOOD COUNT 4.76 x10^6/uL (3.50-5.40); RED CELL DISTRIBUTION WIDTH 13.7 % (11.5-14.5); WHITE BLOOD COUNT 9.3 x10^3/uL (4.0-11.0)
[2018-02-04 21:56] LABS: ANION GAP 11 (6-14); BLOOD UREA NITROGEN 13 mg/dL (7-20); BUN/CREATININE RATIO 14 (6-20); CARBON DIOXIDE 26 mmol/L (21-32); CHLORIDE 102 mmol/L (98-107); CREATININE 0.9 mg/dL (0.6-1.0); GFR 81.6; GLUCOSE 149 mg/dL (70-99); POTASSIUM 3.1 mmol/L (3.5-5.1); SODIUM 139 mmol/L (136-145)
[2018-02-04] MEDS: MAGNESIUM SULFATE 2GM 50 ML IV (21:58)
[2018-02-04 21:59] LABS: TROPONINI < 0.017 ng/mL (0.000-0.055)
[2018-02-04 22:00] LABS: ALBUMIN 3.2 g/dL (3.4-5.0); ALBUMIN/GLOBULIN RATIO 0.6 (1.0-1.7); ALK PHOS 85 U/L (46-116); ALT (SGPT) 55 U/L (14-59); AST (SGOT) 45 U/L (15-37); MAGNESIUM 1.7 mg/dL (1.8-2.4); TOTAL BILIRUBIN 0.2 mg/dL (0.2-1.0); TOTAL PROTEIN 8.5 g/dL (6.4-8.2)
[2018-02-04 22:05] LABS: CKMB INDEX 1.5 % (0-4); CKMB MASS 2.1 ng/mL (0.0-3.6); CREATINE KINASE 141 U/L (26-192)
[2018-02-04 22:05] LABS: NT-PRO BNP 433 pg/mL (0-124)
[2018-02-04] MEDS: POTASSIUM CHLORIDE 20 MEQ TABLET.ER. PO ×2 (23:00→23:02)
[2018-02-04] MEDS: LABETALOL 20 MG/4 ML DISP.SYRIN. IVP (23:02)
[2018-02-05] MEDS: POTASSIUM CHLORIDE 20 MEQ/15 ML ORAL LIQUID. PEG (00:14)
[2018-02-05] MEDS ORDERED: ALBUTEROL SULFATE 2.5 MG/3 ML NEBU. NEB (00:15)
[2018-02-05 05:13] LABS: ANION GAP 9 (6-14); BLOOD UREA NITROGEN 10 mg/dL (7-20); CALCIUM 9.1 mg/dL (8.5-10.1); CARBON DIOXIDE 25 mmol/L (21-32); CHLORIDE 103 mmol/L (98-107); CREATININE 0.8 mg/dL (0.6-1.0); GFR 93.4; GLUCOSE 116 mg/dL (70-99); POTASSIUM 3.5 mmol/L (3.5-5.1); SODIUM 137 mmol/L (136-145)
[2018-02-05 06:26] LABS: ADD MAN DIFF? NO
[2018-02-05 06:32] LABS: BASO # 0.1 x10^3/uL (0.0-0.2); BASO % 1 % (0-3); EOS % 0 % (0-3); HEMATOCRIT 43.2 % (36.0-47.0); HEMOGLOBIN 14.7 g/dL (12.0-15.5); LYMPH # 2.5 x10^3/uL (1.0-4.8); LYMPH % 26 % (24-48); MEAN CORPUSCULAR HEMOGLOBIN 31 pg (25-35); MEAN CORPUSCULAR HGB CONC 34 g/dL (31-37); MEAN CORPUSCULAR VOLUME 90 fL (79-100); MONO # 0.8 x10^3/uL (0.0-1.1); MONO % 8 % (0-9); NEUT # 6.5 x10^3uL (1.8-7.7); NEUT % 65 % (31-73); PLATELET COUNT 424 x10^3/uL (140-400); RED CELL DISTRIBUTION WIDTH 13.8 % (11.5-14.5)
[2018-02-05] MEDS: IPRATRPIUM/ALBUTEROL 0.5/2.5MG 3 ML NEBU. NEB ×4 (07:06→21:07)
[2018-02-05] MEDS ORDERED: IPRATRPIUM/ALBUTEROL 0.5/2.5MG 3 ML NEBU. NEB (08:00)
[2018-02-05 08:05] LABS: POC GLUCOSE 115 mg/dL (70-99)
[2018-02-05] MEDS: amLODIPine BESYLATE 10 MG TABLET PO (11:22)
[2018-02-05] MEDS: ASPIRIN ENTERIC COATED 81 MG TABLET.DR. PO (11:22)
[2018-02-05] MEDS: methylPREDNISolone SOD SUCC PF 40 MG/ML VIAL. IV ×2 (11:23→20:51)
[2018-02-05] MEDS: hydroCHLOROthiazide 25 MG TABLET PO (11:23)
[2018-02-05 11:34] LABS: POC GLUCOSE 96 mg/dL (70-99)
[2018-02-05] MEDS: oxyCODONE/APAP 5/325 1 TAB TABLET PO (15:02)
[2018-02-05] MEDS: AZITHROMYCIN 250 MG TABLET. PO (15:02)
[2018-02-05] MEDS: LIDOCAINE (700MG/PATCH) PATCH. TD (15:05)
[2018-02-05 16:51] LABS: POC GLUCOSE 213 mg/dL (70-99)
[2018-02-05] MEDS: ATORVASTATIN CALCIUM 40 MG TABLET. PO (20:49)
[2018-02-05] MEDS: guaiFENesin/CODEINE 100mg/10mg 5 ML LIQUID PO (20:49)
[2018-02-05] MEDS: LABETALOL 20 MG/4 ML DISP.SYRIN. IVP (20:52)
[2018-02-05] MEDS: PATCH REMOVAL. MC (21:00)
[2018-02-05 21:08] LABS: POC GLUCOSE 137 mg/dL (70-99)
[2018-02-06 08:14] LABS: POC GLUCOSE 206 mg/dL (70-99)
[2018-02-06] MEDS: IPRATRPIUM/ALBUTEROL 0.5/2.5MG 3 ML NEBU. NEB ×4 (08:33→19:30)
[2018-02-06] MEDS: ASPIRIN ENTERIC COATED 81 MG TABLET.DR. PO (08:56)
[2018-02-06] MEDS: hydroCHLOROthiazide 25 MG TABLET PO (08:57)
[2018-02-06] MEDS: AZITHROMYCIN 250 MG TABLET. PO (08:57)
[2018-02-06] MEDS: LIDOCAINE (700MG/PATCH) PATCH. TD (08:57)
[2018-02-06] MEDS: methylPREDNISolone SOD SUCC PF 40 MG/ML VIAL. IV ×2 (08:57→21:01)
[2018-02-06] MEDS: amLODIPine BESYLATE 10 MG TABLET PO (09:00)
[2018-02-06] MEDS: oxyCODONE/APAP 5/325 1 TAB TABLET PO ×3 (09:04→21:11)
[2018-02-06] MEDS: guaiFENesin/CODEINE 100mg/10mg 5 ML LIQUID PO ×2 (10:56→21:11)
[2018-02-06] MEDS: metFORMIN 500 MG TABLET PO ×2 (11:00→16:59)
[2018-02-06 11:34] LABS: POC GLUCOSE 161 mg/dL (70-99)
[2018-02-06 17:00] LABS: POC GLUCOSE 151 mg/dL (70-99)
[2018-02-06 20:43] LABS: POC GLUCOSE 131 mg/dL (70-99)
[2018-02-06] MEDS: PATCH REMOVAL. MC (21:00)
[2018-02-06] MEDS: LACTOBACILLUS RHAMNOSUS GG 1 CAPSULE. PO (21:01)
[2018-02-06] MEDS: ATORVASTATIN CALCIUM 40 MG TABLET. PO (21:01)
[2018-02-06 21:10] LABS: MRSA BY PCR Positive (Negative)
[2018-02-06] MEDS: diphenhydrAMINE HCL 25 MG CAPSULE PO (22:32)
[2018-02-06] MEDS: LABETALOL 20 MG/4 ML DISP.SYRIN. IVP (23:31)
[2018-02-07] MEDS: IPRATRPIUM/ALBUTEROL 0.5/2.5MG 3 ML NEBU. NEB ×2 (07:18→12:49)
[2018-02-07 08:33] LABS: POC GLUCOSE 167 mg/dL (70-99)
[2018-02-07] MEDS: LIDOCAINE (700MG/PATCH) PATCH. TD (09:00)
[2018-02-07] MEDS: LACTOBACILLUS RHAMNOSUS GG 1 CAPSULE. PO (09:22)
[2018-02-07] MEDS: AZITHROMYCIN 250 MG TABLET. PO (09:22)
[2018-02-07] MEDS: amLODIPine BESYLATE 10 MG TABLET PO (09:23)
[2018-02-07] MEDS: metFORMIN 500 MG TABLET PO (09:23)
[2018-02-07] MEDS: ASPIRIN ENTERIC COATED 81 MG TABLET.DR. PO (09:23)
[2018-02-07] MEDS: methylPREDNISolone SOD SUCC PF 40 MG/ML VIAL. IV (09:24)
[2018-02-07] MEDS: hydroCHLOROthiazide 25 MG TABLET PO (09:24)
[2018-02-07] MEDS: oxyCODONE/APAP 5/325 1 TAB TABLET PO ×2 (09:25→14:19)
[2018-02-07] MEDS: guaiFENesin/CODEINE 100mg/10mg 5 ML LIQUID PO ×2 (09:25→14:21)
[2018-02-07] MEDS: tiZANidine 4 MG TABLET. PO (09:33)
[2018-02-07 11:33] LABS: POC GLUCOSE 155 mg/dL (70-99)
[2018-02-07] MEDS ORDERED: methylPREDNISolone SOD SUCC PF 40 MG/ML VIAL. IV (21:00)
== END 2018-02-07 15:45 | disposition home or self-care (01) | DRG 641 ==
LOC: ER 19:30 → 4 NORTH 02-05 00:35
DX: E87.6 Hypokalemia (principal); J44.1 Chronic obstructive pulmonary disease with (acute) exacerbation; E44.0 Moderate protein-calorie malnutrition; I12.9 Hypertensive chronic kidney disease with stage 1 through stage 4 chronic kidney disease, or unspecified chronic kidney disease; N18.9 Chronic kidney disease, unspecified; Z87.891 Personal history of nicotine dependence; E78.5 Hyperlipidemia, unspecified; G43.909 Migraine, unspecified, not intractable, without status migrainosus; K21.9 Gastro-esophageal reflux disease without esophagitis; F41.9 Anxiety disorder, unspecified; F32.9 Major depressive disorder, single episode, unspecified; M10.9 Gout, unspecified; E11.22 Type 2 diabetes mellitus with diabetic chronic kidney disease; Z90.710 Acquired absence of both cervix and uterus; Z98.51 Tubal ligation status; Z83.3 Family history of diabetes mellitus; Z82.5 Family history of asthma and other chronic lower respiratory diseases; Z82.49 Family history of ischemic heart disease and other diseases of the circulatory system; Z88.8 Allergy status to other drugs, medicaments and biological substances; E78.00 Pure hypercholesterolemia, unspecified; Z90.49 Acquired absence of other specified parts of digestive tract; Z79.84 Long term (current) use of oral hypoglycemic drugs; F12.10 Cannabis abuse, uncomplicated; F14.10 Cocaine abuse, uncomplicated; Z91.19 Patient's noncompliance with other medical treatment and regimen
CPT/HCPCS: 36415; 71046; 80048; 80053; 82553; 82962; 83735; 83880; 84484; 85025; 87641; 93005; 94640; 94760; 96365; 96366; 96375; 97161-GP; 99285; 99285-25; J2920; J3475; J3490; J7620; Q0144; Q0163

== ENCOUNTER 2018-03-05 09:07 | Emergency (ER) | payer OTHER ==
[~2018-03-05] VITALS: Ht 165.1 cm; Wt 74.4 kg
[~2018-03-05 09:07] MED LIST changes: -AMLO10TA2 PO; +AMLO10TA6 PO; +ASPI-612 PO; +ATOR40TA59 PO; +DIAZ2TAB PO; -FERR-26 PO; +FERR325T14 PO; +IBUP-1007 PO; +METF500T16 PO; -METF500T4 PO; +METH-37 PO; +ONDA4TAB7 PO; +TRAM50TA PO
[2018-03-05 09:10] VITALS: BP 153/101
[2018-03-05] MEDS ORDERED: TRAM50TA PO (09:23)
[2018-03-05] MEDS ORDERED: IBUP-1060 PO (09:23)
[2018-03-05] MEDS ORDERED: MORPHINE SULFATE 10 MG/ML VIAL. IM ONE (09:30)
--- NOTE | 2018-03-05 09:43 | PHYS DOC ---
Past Medical History Past Medical History: Asthma, COPD, Diabetes-Type II, High Cholesterol, Hypertension, Pancreatitis, Pneumonia, Other Additional Past Medical Histor: Lupus Past Surgical History: Appendectomy, Hysterectomy, Other Additional Past Surgical Histo: chest tube for pneumonia, Pancreas surgery Alcohol Use: Occasionally Drug Use: Cocaine Adult General Chief Complaint Chief Complaint: UPPER EXTREMITY PAIN HPI HPI Patient is a 47 year old female who presents with right shoulder pain. Patient has a known history of osteoarthritis and chronic pain in the right shoulder. She did not sustain any additional injury. She awoke this morning with pain that feels exactly like her chronic pain only more acute. She states she has no pain medications at home. She has been using njym-[id number]-[id number] medications for relief of symptoms but these did not work so she came to the emergency department. No fever or chills. No additional complaints. Review of electronic medical record reveals that the patient was recently admitted for chest pain. She was discharged last week. During that visit she did have chest x-ray and shoulders are visible in the chest x-ray. Bilateral shoulders reveal bony distraction of the joint and significant osteophytic lesions. Review of Systems Review of Systems Constitutional: Denies fever HENT: Denies nasal congestion Respiratory: Denies cough or shortness of breath Cardiovascular: No additional information GI: Denies abdominal pain : Denies dysuria or hematuria Musculoskeletal: Denies back pain Integument: Denies rash Neurologic: Denies headache All other systems were reviewed and found to be within normal limits, except as documented in this note. Current Medications Current Medications Current Medications Medications (Trade) Dose Ordered Sig/Nona Start Time Stop Time Status Last Admin Dose Admin Morphine Sulfate (Morphine Sulfate) 10 mg 1X ONCE 03/05/18 09:30 03/05/18 09:31 DC 03/05/18 09:30 10 MG Allergies Allergies Allergies Coded Allergies Type Severity Reaction Last Updated Verified lisinopril Allergy Intermediate COUGH 03/23/17 Yes I S O L A T I O N *CONTACT* Allergy Unknown 03/23/17 Yes Physical Exam Physical Exam Constitutional: Well developed, well nourished, no acute distress HENT: Normocephalic, atraumatic Eyes: PERRLA, EOMI, conjunctiva normal Neck: Normal range of motion, no tenderness, Cardiovascular:Heart rate regular rhythm Lungs & Thorax: Bilateral breath sounds clear Abdomen: Bowel sounds normal, soft, no tenderness Skin: Warm, dry, no erythema Back: No tenderness Extremities: No tenderness, no cyanosis, right shoulder joint with no erythema or swelling. TTP over superior, anterior, posterior aspects. ROM limited by pain and poor patient cooperation. distal sensation to light touch intact over all dermatomes. 2+ radial pulses and brisk capillary refill in the extremity. Neurologic: Alert and oriented X 3 Psychologic: Affect normal Current Patient Data Vital Signs Vital Signs Date Time Temp Pulse Resp B/P (MAP) Pulse Ox O2 Delivery O2 Flow Rate FiO2 03/05/18 09:30 18 94 Room Air 03/05/18 09:10 98.2 100 153/101 (118) 98.2 EKG EKG [] Radiology/Procedures Radiology/Procedures [] Course & Med Decision Making Course & Med Decision Making Pertinent Labs and Imaging studies reviewed. (See chart for details) Patient is evaluated briefly in the emergency department for acute on chronic right shoulder pain. She had no new trauma. In the ER, she is given a shot of intramuscular morphine. She is discharged home with ibuprofen and Ultram. She is advised to follow-up with her primary care doctor regarding her chronic pain complaints. Dragon Disclaimer Dragon Disclaimer This electronic medical record was generated, in whole or in part, using a voice recognition dictation system. Departure Departure Impression: Primary Impression: Shoulder pain Disposition: 01 HOME, SELF-CARE Condition: GOOD Patient Instructions: Shoulder Pain, Pnbf-dz-[id number] Scripts Ibuprofen (IBUPROFEN) 800 Mg Tablet 800 MG PO TID PRN for INFLAMMATION for 10 Days, #30 TAB Prov: TARAH MOTA DO 03/05/18 Tramadol Hcl (TRAMADOL HCL) 50 Mg Tablet 50 MG PO q12 PRN for severe pain, #20 TAB Prov: TARAH MOTA DO 03/05/18 TARAH MOTA DO Mar 05, 2018 09:43
== END 2018-03-05 09:23 | disposition home or self-care (01) ==
LOC: ER 09:07
DX: G89.29 Other chronic pain (principal); M25.511 Pain in right shoulder; E78.00 Pure hypercholesterolemia, unspecified; J44.9 Chronic obstructive pulmonary disease, unspecified; I10 Essential (primary) hypertension; M32.9 Systemic lupus erythematosus, unspecified; Z88.8 Allergy status to other drugs, medicaments and biological substances; Z91.041 Radiographic dye allergy status
CPT/HCPCS: 96372; 99283; J2270

== ENCOUNTER 2018-04-21 10:35 | Emergency (ER) | payer OTHER ==
[~2018-04-21] VITALS: Ht 165.1 cm; Wt 77.1 kg
[2018-04-21] MEDS ORDERED: IPRATRPIUM/ALBUTEROL 0.5/2.5MG 3 ML NEBU. NEB ONE (11:00)
[2018-04-21] MEDS ORDERED: IV NORMAL SALINE 1000ML BAG 1,000 ML IV ONE (11:00)
[2018-04-21 11:13] LABS: BASO # 0.1 x10^3/uL (0.0-0.2); BASO % 1 % (0-3); EOS # 0.4 x10^3/uL (0.0-0.7); EOS % 6 % (0-3); HEMATOCRIT 43.3 % (36.0-47.0); HEMOGLOBIN 14.9 g/dL (12.0-15.5); LYMPH # 2.6 x10^3/uL (1.0-4.8); LYMPH % 38 % (24-48); MEAN CORPUSCULAR HEMOGLOBIN 30 pg (25-35); MEAN CORPUSCULAR HGB CONC 34 g/dL (31-37); MEAN CORPUSCULAR VOLUME 87 fL (79-100); MONO # 0.6 x10^3/uL (0.0-1.1); MONO % 8 % (0-9); NEUT # 3.1 x10^3uL (1.8-7.7); NEUT % 47 % (31-73); PLATELET COUNT 382 x10^3/uL (140-400); RED BLOOD COUNT 4.97 x10^6/uL (3.50-5.40); RED CELL DISTRIBUTION WIDTH 14.5 % (11.5-14.5); WHITE BLOOD COUNT 6.7 x10^3/uL (4.0-11.0)
[2018-04-21] MEDS ORDERED: METOPROLOL TARTRATE 5 MG/5 ML VIAL. IVP ONE (11:15)
[2018-04-21 11:26] LABS: CREATININE 0.9 mg/dL (0.6-1.0); GFR 81.6; POTASSIUM 3.4 mmol/L (3.5-5.1)
[2018-04-21 11:32] LABS: ALBUMIN 3.5 g/dL (3.4-5.0); ALBUMIN/GLOBULIN RATIO 0.6 (1.0-1.7); TOTAL BILIRUBIN 0.7 mg/dL (0.2-1.0); TOTAL PROTEIN 9.2 g/dL (6.4-8.2)
--- NOTE | 2018-04-21 12:12 | RAD ---
CHEST PA LATERAL History: cough, wheezing, hx of pneumonia, epigastric pain Comparison: Chest radiograph dated 02/27/2018. Findings: Normal lung volume. No focal consolidation. Normal pulmonary vasculature. No pleural effusion or pneumothorax. The cardiomediastinal silhouette is normal. The great vessels of the thorax are normal. No acute osseous abnormality. IMPRESSION: No acute cardiopulmonary process. Electronically signed by: Kentrell Carlton MD (04/21/2018 12:08 PM) [facility]
[2018-04-21] MEDS ORDERED: MORPHINE SULFATE 10 MG/ML VIAL. IV ONE (12:15)
[2018-04-21] MEDS ORDERED: LIDO:MAALOX 1:1 20 ML SINGLE DOSE. SWSW ONE (13:15)
[2018-04-21] MEDS ORDERED: ONDANSETRON PF 4 MG/2 ML VIAL. IM ONE (14:30)
[2018-04-21] MEDS ORDERED: POTASSIUM CHLORIDE 20 MEQ TABLET.ER. PO ONE (14:30)
[2018-04-21 14:52] VITALS: BP 177/107
--- NOTE | 2018-04-21 15:08 | PHYS DOC ---
Past Medical History Past Medical History: Asthma, COPD, Diabetes-Type II, High Cholesterol, Hypertension, Pancreatitis, Pneumonia, Other Additional Past Medical Histor: Lupus Past Surgical History: Appendectomy, Hysterectomy, Other Additional Past Surgical Histo: chest tube for pneumonia, Pancreas surgery Alcohol Use: Occasionally Drug Use: Cocaine, Marijuana Adult General Chief Complaint Chief Complaint: ABDOMINAL PAIN HPI HPI Patient is a 47 year old female who presents with epigastric pain. The patient states that this started approximately one day ago. She is seen frequently at this facility. She denies vomiting, constipation or diarrhea. She has not tried ofxm-ovh-pareofi medications to treat her condition. Review of Systems Review of Systems Constitutional: Denies fever or chills [] Respiratory: Denies cough or shortness of breath [] Cardiovascular: No additional information not addressed in HPI [] GI: See history of present illness : Denies dysuria or hematuria [] Musculoskeletal: Denies back pain or joint pain [] Integument: Denies rash or skin lesions [] Neurologic: Denies headache, focal weakness or sensory changes [] Endocrine: Denies polyuria or polydipsia [] All other systems were reviewed and found to be within normal limits, except as documented in this note. Current Medications Current Medications Current Medications Medications (Trade) Dose Ordered Sig/Nona Start Time Stop Time Status Last Admin Dose Admin Albuterol/ Ipratropium (Duoneb) 3 ml 1X ONCE 04/21/18 11:00 04/21/18 11:03 DC 04/21/18 11:12 3 ML Metoprolol Tartrate (Lopressor Vial) 5 mg 1X ONCE 04/21/18 11:15 04/21/18 11:16 DC 04/21/18 11:31 5 MG Morphine Sulfate (Morphine Sulfate) 5 mg 1X ONCE 04/21/18 12:15 04/21/18 12:16 DC 04/21/18 12:15 5 MG Multi-Ingredient Mouthwash/Gargle (Gi Cocktail) 20 ml 1X ONCE 04/21/18 13:15 04/21/18 13:16 DC 04/21/18 13:38 20 ML Ondansetron HCl (Zofran) 4 mg 1X ONCE 04/21/18 14:30 04/21/18 14:31 DC 04/21/18 14:38 4 MG Potassium Chloride (Klor-Con) 40 meq 1X ONCE 04/21/18 14:30 04/21/18 14:31 DC Sodium Chloride 1,000 ml @ 1,000 mls/hr 1X ONCE 04/21/18 11:00 04/21/18 11:59 DC 04/21/18 11:11 1,000 MLS/HR Allergies Allergies Allergies Coded Allergies Type Severity Reaction Last Updated Verified lisinopril Allergy Intermediate COUGH 03/23/17 Yes I S O L A T I O N *CONTACT* Allergy Unknown 03/23/17 Yes Physical Exam Physical Exam Constitutional: Well developed, well nourished, no acute distress, non-toxic appearance. [] HENT: Normocephalic, atraumatic, bilateral external ears normal, oropharynx moist, no oral exudates, nose normal. [] Eyes: PERRLA, EOMI, conjunctiva normal, no discharge. [] Neck: Normal range of motion, no tenderness, supple, no stridor. [] Cardiovascular:Heart rate regular rhythm, no murmur [] Lungs & Thorax: Bilateral breath sounds clear to auscultation [] Abdomen: Bowel sounds normal, soft, epigastric tenderness with palpation, no guarding noted, no masses, no pulsatile masses. [] Skin: Warm, dry, no erythema, no rash. [] Back: No tenderness, no CVA tenderness. [] Extremities: No tenderness, no cyanosis, no clubbing, ROM intact, no edema. [] Neurologic: Alert and oriented X 3, normal motor function, normal sensory function, no focal deficits noted. [] Psychologic: Affect normal, judgement normal, mood normal. [] Current Patient Data Vital Signs Vital Signs Date Time Temp Pulse Resp B/P (MAP) Pulse Ox O2 Delivery O2 Flow Rate FiO2 04/21/18 14:52 74 177/107 (130) 97 Room Air 04/21/18 12:15 20 04/21/18 10:36 97.9 97.9 Lab Values Laboratory Tests Test 04/21/18 10:58 White Blood Count 6.7 x10^3/uL (4.0-11.0) Red Blood Count 4.97 x10^6/uL (3.50-5.40) Hemoglobin 14.9 g/dL (12.0-15.5) Hematocrit 43.3 % (36.0-47.0) Mean Corpuscular Volume 87 fL (79-100) Mean Corpuscular Hemoglobin 30 pg (25-35) Mean Corpuscular Hemoglobin Concent 34 g/dL (31-37) Red Cell Distribution Width 14.5 % (11.5-14.5) Platelet Count 382 x10^3/uL (140-400) Neutrophils (%) (Auto) 47 % (31-73) Lymphocytes (%) (Auto) 38 % (24-48) Monocytes (%) (Auto) 8 % (0-9) Eosinophils (%) (Auto) 6 % (0-3) H Basophils (%) (Auto) 1 % (0-3) Neutrophils # (Auto) 3.1 x10^3uL (1.8-7.7) Lymphocytes # (Auto) 2.6 x10^3/uL (1.0-4.8) Monocytes # (Auto) 0.6 x10^3/uL (0.0-1.1) Eosinophils # (Auto) 0.4 x10^3/uL (0.0-0.7) Basophils # (Auto) 0.1 x10^3/uL (0.0-0.2) Sodium Level 138 mmol/L (136-145) Potassium Level 3.4 mmol/L (3.5-5.1) L Chloride Level 102 mmol/L (98-107) Carbon Dioxide Level 22 mmol/L (21-32) Anion Gap 14 (6-14) Blood Urea Nitrogen 4 mg/dL (7-20) L Creatinine 0.9 mg/dL (0.6-1.0) Estimated GFR (Cockcroft-Gault) 81.6 BUN/Creatinine Ratio 4 (6-20) L Glucose Level 119 mg/dL (70-99) H Calcium Level 10.0 mg/dL (8.5-10.1) Total Bilirubin 0.7 mg/dL (0.2-1.0) Aspartate Amino Transferase (AST) 51 U/L (15-37) H Alanine Aminotransferase (ALT) 46 U/L (14-59) Alkaline Phosphatase 87 U/L (46-116) Troponin I Quantitative < 0.017 ng/mL (0.000-0.055) Total Protein 9.2 g/dL (6.4-8.2) H Albumin 3.5 g/dL (3.4-5.0) Albumin/Globulin Ratio 0.6 (1.0-1.7) L Laboratory Tests 04/21/18 10:58 Laboratory Tests 04/21/18 10:58 EKG EKG [] Radiology/Procedures Radiology/Procedures [] Course & Med Decision Making Course & Med Decision Making Pertinent Labs and Imaging studies reviewed. (See chart for details) []The patient stated that the morphine and GI cocktail did not relieve her symptoms. She states that after the GI cocktail she became nauseated. The patient was given Zofran to control her nausea. A CT scan of her abdomen was ordered but CT called and stated that she has had multiple CTs since the beginning of this year with her most recent abdominal CT just in December with no abnormal results found on any of her scans. Given her increased risk of radiation overdose we decided to not go ahead with the CT scan. Dragon Disclaimer Dragon Disclaimer This electronic medical record was generated, in whole or in part, using a voice recognition dictation system. Departure Departure Impression: Primary Impression: Abdominal pain of unknown cause Disposition: 01 HOME, SELF-CARE Condition: STABLE Referrals: ALLIE MARES MD (PCP) Patient Instructions: Abdominal Pain (Nonspecific) Additional Instructions: You may take ibuprofen or Tylenol for pain. Follow-up with your primary care provider in 3 days for recheck or return to the emergency department if worsening. BRI CARSON APRN Apr 21, 2018 15:08
--- NOTE | 2018-04-22 08:07 | EKG ---
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
== END 2018-04-21 15:21 | disposition home or self-care (01) ==
LOC: ER 10:35
DX: R10.13 Epigastric pain (principal); J44.9 Chronic obstructive pulmonary disease, unspecified; E78.00 Pure hypercholesterolemia, unspecified; E11.9 Type 2 diabetes mellitus without complications; I10 Essential (primary) hypertension; Z90.710 Acquired absence of both cervix and uterus; Z90.89 Acquired absence of other organs; Z88.8 Allergy status to other drugs, medicaments and biological substances; Z91.041 Radiographic dye allergy status
CPT/HCPCS: 36415; 71046; 80053; 84484; 85025; 93005; 94640; 96372; 96374; 96375; 99285; J2270; J2405; J3490; J7030; J7620

== ENCOUNTER 2018-07-27 08:33 | Emergency (ER) | payer MEDICAID, OTHER ==
[~2018-07-27] VITALS: Ht 165.1 cm; Wt 77.1 kg
[~2018-07-27 08:33] MED LIST changes: +ALBU2.5V8 INH; +ALLO100T PO; +EZET10TA18 PO; +FLUT1DIS3 IH; +HYDR-2145 PO; -HYDR-2762 PO; +HYDR-2765 PO; -HYDR25TA9 PO; +IPRA3AMP29 NEB; +LOSA-73 PO; -LOSA50TA2 PO; +METO-247 PO; -OXYC-323 PO; +OXYC1TAB15 PO; -PROAIR HFA8.5 GM INH
--- NOTE | 2018-07-27 08:58 | PHYS DOC ---
Past Medical History Past Medical History: Asthma, COPD, Diabetes-Type II, High Cholesterol, Hypertension, Pancreatitis, Pneumonia, Other Additional Past Medical Histor: Lupus Past Surgical History: Appendectomy, Hysterectomy, Other Additional Past Surgical Histo: chest tube for pneumonia, Pancreas surgery Alcohol Use: Occasionally Drug Use: Cocaine, Marijuana Social History Narrative: last cocaine use 05/2017 Adult General Chief Complaint Chief Complaint: HEADACHE HPI HPI Patient is a 48 year old female with history of migraine headaches, hypertension, high cholesterol, diabetes, COPD, who presents today complaining of cough and wheezing that began 4 days ago. Patient states she has tried her Symbicort inhaler with no relief. Patient is also complaining of 10 out of 10 anterior migraine headache that began 4 days ago and has been going on intermittently since then. Patient states this headache is consistent with her normal migraine headaches, denies this being the worst headache in her life. Patient denies any photophobia. She states she has slight nausea with no vomiting. She states she's been trying zruw-idc-[id number] Tylenol or Motrin for her pain with some relief. Review of Systems Review of Systems Constitutional: Denies fever or chills [] Eyes: Denies change in visual acuity, redness, or eye pain [] HENT: Denies nasal congestion or sore throat [] Respiratory: Reports cough and wheezing. Denies shortness of breath [] Cardiovascular: No additional information not addressed in HPI [] GI: Denies abdominal pain, nausea, vomiting, bloody stools or diarrhea [] : Denies dysuria or hematuria [] Musculoskeletal: Denies back pain or joint pain [] Integument: Denies rash or skin lesions [] Neurologic: Reports headache, denies focal weakness or sensory changes [] All other systems were reviewed and found to be within normal limits, except as documented in this note. Current Medications Current Medications Current Medications Medications (Trade) Dose Ordered Sig/Nona Start Time Stop Time Status Last Admin Dose Admin Albuterol/ Ipratropium (Duoneb) 3 ml 1X ONCE 07/27/18 09:00 07/27/18 09:01 DC 07/27/18 09:00 3 ML Diphenhydramine HCl (Benadryl) 25 mg 1X ONCE 07/27/18 09:00 07/27/18 09:01 DC 07/27/18 09:21 25 MG Ketorolac Tromethamine (Toradol Im) 60 mg 1X ONCE 07/27/18 09:00 07/27/18 09:01 DC 07/27/18 09:21 60 MG Methylprednisolone Sodium Succinate (SOLU-Medrol 125MG VIAL) 125 mg 1X ONCE 07/27/18 09:00 07/27/18 09:01 DC 07/27/18 09:21 125 MG Ondansetron HCl (Zofran Odt) 4 mg 1X ONCE 07/27/18 09:00 07/27/18 09:01 DC 07/27/18 09:21 4 MG Allergies Allergies Allergies Coded Allergies Type Severity Reaction Last Updated Verified lisinopril Allergy Intermediate COUGH 06/13/18 Yes I S O L A T I O N *CONTACT* Allergy Unknown 06/13/18 Yes Physical Exam Physical Exam Constitutional: Well developed, well nourished, no acute distress, non-toxic appearance. [] HENT: Normocephalic, atraumatic, bilateral external ears normal, oropharynx moist, no oral exudates, nose normal. [] Eyes: PERRLA, EOMI, conjunctiva normal, no discharge. [] Neck: Normal range of motion, no tenderness, supple, no stridor. [] Cardiovascular:Heart rate regular rhythm, no murmur [] Lungs & Thorax: scattered whizzing to all the lung bases Abdomen: Bowel sounds normal, soft, no tenderness, no masses, no pulsatile masses. [] Skin: Warm, dry, no erythema, no rash. [] Back: No tenderness, no CVA tenderness. [] Extremities: No tenderness, no cyanosis, no clubbing, ROM intact, no edema. [] Neurologic: Alert and oriented X 3, normal motor function, normal sensory function, no focal deficits noted. Cranial nerves II-XII intact Psychologic: Affect normal, judgement normal, mood normal. [] Current Patient Data Vital Signs Vital Signs Date Time Temp Pulse Resp B/P (MAP) Pulse Ox O2 Delivery O2 Flow Rate FiO2 07/27/18 09:33 98 Room Air 07/27/18 09:15 110 18 07/27/18 08:47 98.1 166/114 (131) 98.1 EKG EKG [] Radiology/Procedures Radiology/Procedures []PROCEDURE: CHEST PA & LATERAL CHEST PA LATERAL History: COUGH, HX OF COPD AND ASTHMA Comparison: AP chest 07/02/2018. Findings: The cardiomediastinal silhouette is normal. Pulmonary vasculature is normal. The lungs are clear. No pleural effusion or pneumothorax is seen. There is no acute bone abnormality. There is advanced degenerative arthropathy of the shoulders. IMPRESSION: No acute cardiopulmonary process. Electronically signed by: Migel Sam MD (07/27/2018 9:14 AM) [id number] DICTATED and SIGNED BY: MIGEL SAM MD DATE: 07/27/18 0913 Course & Med Decision Making Course & Med Decision Making Pertinent Labs and Imaging studies reviewed. (See chart for details) This is a 48-year-old female patient well known to this ED presenting today for wheezing due to her asthma and a migraine headache intermittently for 4 days. Patient has a history of migraine headaches, she states there is nothing unusual about her headache today. Patient was wheezing on arrival to the ED. He was given a DuoNeb treatment, Solu-Medrol, Toradol for her headache, Zofran and Benadryl. She states she is feeling much better. Chest x-ray interpreted by radiologist is negative for any acute findings. Her blood pressure was 166/114 with a heart rate of 118, O2 sats 97% on room air, prior to discharge I evaluated patient, blood pressure was 149/94, she states she actually took her blood pressure medications just prior to coming to the ED. O2 sats have remained above 97% on room air. Patient will be discharged to home. She follows up with Dr. Mariely Biswas. Instructed to get an appointment in the course of next week. Discharged with prednisone, albuterol inhaler, and Tessalon Perles. Instructed to return to the ED at any point symptoms worsen. Dragon Disclaimer Dragon Disclaimer This electronic medical record was generated, in whole or in part, using a voice recognition dictation system. Departure Departure Impression: Primary Impression: Elevated BP Additional Impression: Asthma exacerbation Disposition: HOME, SELF-CARE Condition: STABLE Referrals: ALLIE BISWAS MD (PCP) Follow-up in the course of next week Patient Instructions: Asthma, Adult, Hypertension Additional Instructions: You were evaluated in the emergency room for asthma exacerbation and a headache. Take the prescribed medications as ordered. Your blood pressure was running high in the emergency room. Ensure you are taking your medications and follow-up with your own doctor in the course of next week. Scripts Albuterol Sulfate (VENTOLIN HFA INHALER) 18 Gm Hfa.aer.ad 2 PUFF INH Q4HRS for FOR ASTHMA, #1 INHALER 0 Refills Prov: BRIAN MCCRAY APRN 07/27/18 Prednisone (PREDNISONE) 50 Mg Tablet 1 TAB PO DAILY, #5 TAB Prov: BRIAN MCCRAY APRN 07/27/18 Benzonatate (TESSALON PERLE) 100 Mg Capsule 1 CAP PO TID, #30 CAP Prov: BRIAN MCCRAY APRN 07/27/18 Problem Qualifiers Additional Impression: Asthma exacerbation Asthma severity: mild Asthma persistence: intermittent Qualified Codes: J45.21 - Mild intermittent asthma with (acute) exacerbation BRIAN MCCRAY APRN Jul 27, 2018 08:58
[2018-07-27] MEDS ORDERED: IPRATRPIUM/ALBUTEROL 0.5/2.5MG 3 ML NEBU. NEB ONE (09:00)
[2018-07-27] MEDS ORDERED: methylPREDNISolone SOD SUCC PF 125 MG/2 ML VIAL. IM ONE (09:00)
[2018-07-27] MEDS ORDERED: KETOROLAC 60 MG/2 ML VIAL. IM ONE (09:00)
[2018-07-27] MEDS ORDERED: diphenhydrAMINE HCL 25 MG CAPSULE PO ONE (09:00)
[2018-07-27] MEDS ORDERED: ONDANSETRON ODT 4 MG TAB.RAPDIS. PO ONE (09:00)
[2018-07-27 09:15] VITALS: BP 141/89
--- NOTE | 2018-07-27 09:19 | RAD ---
CHEST PA LATERAL History: COUGH, HX OF COPD AND ASTHMA Comparison: AP chest 07/02/2018. Findings: The cardiomediastinal silhouette is normal. Pulmonary vasculature is normal. The lungs are clear. No pleural effusion or pneumothorax is seen. There is no acute bone abnormality. There is advanced degenerative arthropathy of the shoulders. IMPRESSION: No acute cardiopulmonary process. Electronically signed by: Migel Sam MD (07/27/2018 9:14 AM) [id number]
[2018-07-27] MEDS ORDERED: BENZ100C PO (10:23)
[2018-07-27] MEDS ORDERED: VENTOLIN HFA18 GM INH (10:23)
[2018-07-27] MEDS ORDERED: PRED50TA PO (10:23)
== END 2018-07-27 10:42 | disposition home or self-care (01) ==
LOC: ER 08:33
DX: J45.21 Mild intermittent asthma with (acute) exacerbation (principal); I10 Essential (primary) hypertension; G43.909 Migraine, unspecified, not intractable, without status migrainosus; J44.9 Chronic obstructive pulmonary disease, unspecified; E11.9 Type 2 diabetes mellitus without complications; E78.00 Pure hypercholesterolemia, unspecified; Z88.6 Allergy status to analgesic agent; Z91.041 Radiographic dye allergy status
CPT/HCPCS: 71046; 94640; 96372; 99283; J1885; J2930; J7620; Q0162; Q0163

== ENCOUNTER 2018-08-27 09:37 | Emergency (ER) | payer OTHER ==
[~2018-08-27] VITALS: Ht 162.6 cm; Wt 77.1 kg
[~2018-08-27 09:37] MED LIST changes: -AMLO10TA6 PO; +AMLO10TA8 PO; +VENTOLIN HFA18 GM INH
[2018-08-27 11:30] VITALS: BP 165/110
[2018-10-16] MEDS ORDERED: HYDR-2145 PO (06:58)
[2018-10-16] MEDS ORDERED: PRED20TA PO (06:58)
[2018-10-16] MEDS ORDERED: PROM6.257 PO (06:58)
[2018-11-16] MEDS ORDERED: HYDR-2869 PO (07:42)
[2018-11-16] MEDS ORDERED: NYST100054 PO (07:42)
[2018-11-16] MEDS ORDERED: guaiFENesin/CODEINE 100mg/10mg PO (07:42)
== END 2018-08-27 12:10 | disposition left against medical advice (07) ==
LOC: ER 09:37
DX: R05 Cough (principal); R09.81 Nasal congestion; R06.02 Shortness of breath; Z53.21 Procedure and treatment not carried out due to patient leaving prior to being seen by health care provider

== ENCOUNTER → 2018-09-11 | Outpatient (CLI) | payer OTHER ==
[2018-08-27 11:30] VITALS: BP 165/110
[~2018-09-11] MED LIST changes: +ARIP5TAB19 PO; +COLC0.6T34 PO; +FLUT16SP NS; +HYDR25CA PO; +LOSA1TAB19 PO; +MELO15TA23 PO; +METO200T46 PO; +NYST100054 PO; +ONDA4TAB12 PO; +PROM6.257 PO; +RANI150T2 PO; +SUMA50TA3 PO; +guaiFENesin/CODEINE 100mg/10mg PO
--- NOTE | 2018-09-11 12:29 | RAD ---
EXAM: Head CT without contrast. HISTORY: Intractable migraines. TECHNIQUE: Computed tomographic images of the head were obtained without contrast. *One or more of the following individualized dose reduction techniques were utilized for this examination: 1. Automated exposure control. 2. Adjustment of the mA and/or kV according to patient size. 3. Use of iterative reconstruction technique. COMPARISON: 12/29/2017. FINDINGS: There is no acute or subacute extra-axial or intraparenchymal hemorrhage. There is no mass effect or midline shift. There is no hydrocephalus. The kent-white matter differentiation pattern is intact. There is prominent adenoid soft tissue, likely reactive in etiology. There is no suspicious osseous lesion. There is evidence of prior paranasal sinus surgery and there is maxillary sinus wall thickening likely due to the sequela of chronic sinusitis. This is partially included on the ohcpf-no-lsez. The orbits and mastoid air cells are unremarkable. IMPRESSION: 1. No acute intracranial finding. 2. Chronic paranasal sinus disease, partially included on the cadcu-rn-shqs. Electronically signed by: Jyoti Castillo MD (09/11/2018 12:26 PM) [id number]
== END | disposition home or self-care (01) ==
LOC: CT 11:10
PROVIDERS: ATTEND Family Medicine
DX: G43.011 Migraine without aura, intractable, with status migrainosus (principal); J32.9 Chronic sinusitis, unspecified
CPT/HCPCS: 70450

== ENCOUNTER 2018-10-02 15:01 | Emergency (ER) | payer OTHER ==
[~2018-10-02] VITALS: Ht 162.6 cm; Wt 77.1 kg
[~2018-10-02 15:01] MED LIST changes: -ARIP5TAB19 PO; -COLC0.6T34 PO; -FLUT16SP NS; -HYDR25CA PO; -LOSA1TAB19 PO; -MELO15TA23 PO; -METO200T46 PO; -NYST100054 PO; -ONDA4TAB12 PO; -PROM6.257 PO; -RANI150T2 PO; -SUMA50TA3 PO; -guaiFENesin/CODEINE 100mg/10mg PO
[2018-10-02] MEDS ORDERED: methylPREDNISolone SOD SUCC PF 125 MG/2 ML VIAL. IM ONE (15:30)
[2018-10-02] MEDS ORDERED: IPRATRPIUM/ALBUTEROL 0.5/2.5MG 3 ML NEBU. NEB ONE ×2 (15:30→16:30)
--- NOTE | 2018-10-02 15:54 | RAD ---
EXAM: Chest, single view. HISTORY: Shortness of breath. COMPARISON: 07/27/2018 FINDINGS: A frontal view of the chest obtained. There is a small right pleural effusion. There is no pneumothorax. There is stable prominent cardiac silhouette. No consolidation is seen. There are chronic changes involving both humeral heads. IMPRESSION: Suspected small right pleural effusion, new compared to the prior study. Electronically signed by: Jyoti Castillo MD (10/02/2018 3:51 PM) [place] [id number]
[2018-10-02] MEDS ORDERED: cloNIDine HCL 0.1 MG TABLET PO ONE (16:30)
[2018-10-02 18:39] VITALS: BP 161/86
--- NOTE | 2018-10-02 19:06 | PHYS DOC ---
Past Medical History Past Medical History: Asthma, COPD, Diabetes-Type II, High Cholesterol, Hypertension, Pancreatitis, Pneumonia, Other Additional Past Medical Histor: Lupus (BRIAN MCCRAY APRN) Past Surgical History: Appendectomy, Hysterectomy, Other Additional Past Surgical Histo: chest tube for pneumonia, Pancreas surgery (BRIAN MCCRAY APRN) Alcohol Use: Occasionally Drug Use: Cocaine, Marijuana (BRIAN MCCRAY APRN) Adult General Chief Complaint Chief Complaint: ASTHMA HPI HPI Patient is a 48 year old female with history of COPD, hypertension, asthma, diabetes type 2, who presents to the ED today complaining of wheezing and shortness of breath due to her asthma and COPD that began yesterday. Patient states she has tried her breathing treatment this morning at 8 AM with no relief. Patient denies any fever. Denies any nasal congestion. PCP Dr. Mariely Biswas. (BRIAN MCCRAY APRN) Review of Systems Review of Systems Constitutional: Denies fever or chills [] Eyes: Denies change in visual acuity, redness, or eye pain [] HENT: Denies nasal congestion or sore throat [] Respiratory: Reports cough, wheezing and shortness of breath [] Cardiovascular: No additional information not addressed in HPI [] GI: Denies abdominal pain, nausea, vomiting, bloody stools or diarrhea [] : Denies dysuria or hematuria [] Musculoskeletal: Denies back pain or joint pain [] Integument: Denies rash or skin lesions [] Neurologic: Denies headache, focal weakness or sensory changes [] All other systems were reviewed and found to be within normal limits, except as documented in this note. (BRIAN MCCRAY APRN) Current Medications Current Medications Current Medications Medications (Trade) Dose Ordered Sig/Nona Start Time Stop Time Status Last Admin Dose Admin Albuterol/ Ipratropium (Duoneb) 3 ml 1X ONCE 10/02/18 16:30 10/02/18 16:34 DC 10/02/18 16:46 3 ML Clonidine HCl (Catapres) 0.2 mg 1X ONCE 10/02/18 16:30 10/02/18 16:34 DC 10/02/18 17:06 0.2 MG Methylprednisolone Sodium Succinate (SOLU-Medrol 125MG VIAL) 125 mg 1X ONCE 10/02/18 15:30 10/02/18 15:34 DC 10/02/18 17:06 125 MG (KELLEN BECKER DO) Allergies Allergies Allergies Coded Allergies Type Severity Reaction Last Updated Verified lisinopril Allergy Intermediate COUGH 06/13/18 Yes I S O L A T I O N *CONTACT* Allergy Unknown 06/13/18 Yes (KELLEN BECKER DO) Physical Exam Physical Exam Constitutional: Well developed, well nourished, no acute distress, non-toxic appearance. [] HENT: Normocephalic, atraumatic, bilateral external ears normal, oropharynx moist, no oral exudates, nose normal. [] Eyes: PERRLA, EOMI, conjunctiva normal, no discharge. [] Neck: Normal range of motion, no tenderness, supple, no stridor. [] Cardiovascular:Heart rate regular rhythm, no murmur [] Lungs & Thorax: Scattered wheezing throughout the lung bases. Abdomen: Bowel sounds normal, soft, no tenderness, no masses, no pulsatile masses. [] Skin: Warm, dry, no erythema, no rash. [] Back: No tenderness, no CVA tenderness. [] Extremities: No tenderness, no cyanosis, no clubbing, ROM intact, no edema. [] Neurologic: Alert and oriented X 3, normal motor function, normal sensory function, no focal deficits noted. [] Psychologic: Affect normal, judgement normal, mood normal. [] (BRIAN MCCRAY APRN) Current Patient Data Vital Signs Vital Signs Date Time Temp Pulse Resp B/P (MAP) Pulse Ox O2 Delivery O2 Flow Rate FiO2 10/02/18 18:39 96 20 161/86 (111) 96 Room Air 10/02/18 15:20 98.5 98.5 (KELLEN BECKER DO) EKG EKG [] (BRIAN MCCRAY APRN) Radiology/Procedures Radiology/Procedures []PROCEDURE: CHEST AP ONLY EXAM: Chest, single view. HISTORY: Shortness of breath. COMPARISON: 07/27/2018 FINDINGS: A frontal view of the chest obtained. There is a small right pleural effusion. There is no pneumothorax. There is stable prominent cardiac silhouette. No consolidation is seen. There are chronic changes involving both humeral heads. IMPRESSION: Suspected small right pleural effusion, new compared to the prior study. Electronically signed by: Jyoti Dailey MD (10/02/2018 3:51 PM) [facility] DICTATED and SIGNED BY: JYOTI DAILEY MD DATE: 10/02/18 8812 (BRIAN MCCRAY APRN) Course & Med Decision Making Course & Med Decision Making Pertinent Labs and Imaging studies reviewed. (See chart for details) This is a 48-year-old female patient with a well known history of asthma and COPD presenting today complaining of cough or shortness of breath since yesterday. Patient arrives in the ED O2 sats are 98% on room air. Was given a DuoNeb treatment several times, given Solu-Medrol. Chest x-ray negative for pneumonia, noted for suspected small right pleural effusion. Patient's O2 sats have remained above 98% on room air. I went to reevaluate patient, when I walked into the room she was sitting up in the bed in no distress, so less she saw me she started breathing hard. Patient herself is requesting to be admitted though she is not hypoxic and lung sounds have improved she states she has grand children who will ran her down and does not want to go home. I spoke with , she requested patient to go home and to follow-up in the clinic with Mariely Biswas. Patient herself called Jes Winters FLYER BUILDER for Mariely Biswas who stated if we deem she is safe to go home she can be discharged. I went to talk to patient after talking to oswaldo Andre talking on the phone in no distress. When I told her she is doing well she needs to go home and follow- up with Dr. Mariely Biswas, she stated "what is she gonna do, nothing?" She continues to state she has grandchildren and will run her down if she goes home is the reason she wants to stay. Informed patient her asthma is currently well controlled she can go home and follow-up as an outpatient. Discharge with albuterol inhaler and prednisone. Her blood pressure was 215/120 on arrival to the ED. patient was given clonidine, blood pressure has come down to 160s over 90. Patient is usually noncompliant with her treatments. Recommended to consider taking her medications as prescribed and follow up with her own doctor. (BRIAN MCCRAY APRN) Dragon Disclaimer Dragon Disclaimer This electronic medical record was generated, in whole or in part, using a voice recognition dictation system. (BRIAN MCCRAY APRN) Departure Departure Impression: Primary Impression: Accelerated hypertension Additional Impression: Asthma exacerbation Disposition: HOME, SELF-CARE Condition: STABLE Referrals: ALLIE BISWAS MD (PCP) Call her office tomorrow morning and set up a follow-up appointment Patient Instructions: Asthma, Adult, Hypertension Additional Instructions: You were evaluated in the emergency room for asthma exacerbation. Continue breathing treatments at home. Take the prescribed prednisone as ordered until completed. Please contact Dr. Mariely Biswas tomorrow morning and set up a follow- up appointment Scripts Albuterol Sulfate (VENTOLIN HFA INHALER) 18 Gm Hfa.aer.ad 2 PUFF INH Q4HRS for FOR ASTHMA, #1 INHALER 0 Refills Prov: BRIAN MCCRAY APRN 10/02/18 Attending Signature Attending Signature I have reviewed the PA/FLYER BUILDER's note and plan of care. I was available for consultation as needed during the patient's visit in the emergency department. I agree with the clinical impression, plan, and disposition. (KELLEN BECKER DO) Problem Qualifiers Additional Impression: Asthma exacerbation Asthma severity: mild Asthma persistence: intermittent Qualified Codes: J45.21 - Mild intermittent asthma with (acute) exacerbation BRIAN MCCRAY APRN Oct 02, 2018 19:06 KELLEN BECKER DO Oct 21, 2018 13:07
[2018-10-02] MEDS ORDERED: BENZ100C PO (19:10)
[2018-10-02] MEDS ORDERED: PRED50TA PO (19:10)
[2018-10-02] MEDS ORDERED: VENTOLIN HFA18 GM INH (19:10)
[2018-10-16] MEDS ORDERED: HYDR-2145 PO (06:58)
[2018-10-16] MEDS ORDERED: PRED20TA PO (06:58)
[2018-10-16] MEDS ORDERED: PROM6.257 PO (06:58)
[2018-11-16] MEDS ORDERED: HYDR-2869 PO (07:42)
[2018-11-16] MEDS ORDERED: NYST100054 PO (07:42)
[2018-11-16] MEDS ORDERED: guaiFENesin/CODEINE 100mg/10mg PO (07:42)
== END 2018-10-02 19:20 | disposition home or self-care (01) ==
LOC: ER 15:01
DX: J44.9 Chronic obstructive pulmonary disease, unspecified (principal); J45.901 Unspecified asthma with (acute) exacerbation; I10 Essential (primary) hypertension; E78.00 Pure hypercholesterolemia, unspecified; M32.9 Systemic lupus erythematosus, unspecified; E11.9 Type 2 diabetes mellitus without complications; Z91.041 Radiographic dye allergy status; Z88.8 Allergy status to other drugs, medicaments and biological substances
CPT/HCPCS: 71045; 94640; 96372; 99284; J2930; J7620

== ENCOUNTER 2018-10-12 19:52 | Inpatient (IN) | payer OTHER ==
[~2018-10-12] VITALS: Ht 162.6 cm; Wt 80.4 kg
--- NOTE | 2018-10-12 20:27 | PHYS DOC ---
Past Medical History Past Medical History: Asthma, COPD, Diabetes-Type II, High Cholesterol, Hypertension, Pancreatitis, Pneumonia, Other Additional Past Medical Histor: Lupus Past Surgical History: Appendectomy, Hysterectomy, Other Additional Past Surgical Histo: chest tube for pneumonia, Pancreas surgery Alcohol Use: Occasionally Drug Use: Cocaine, Marijuana Adult General Chief Complaint Chief Complaint: COUGH HPI HPI 43-year-old female with past medical history of COPD presents with 2 week history of progressive dyspnea with associated wheezing and nonproductive cough. Patient has been seen both in the emergency department and by her PCP and was started on steroid burst 2 as well as nebulizer treatments without significant improvement. Patient was instructed if symptoms did not improve patient was to present to the ER for admission. Denies leg swelling or calf tenderness. Denies fever or chills. Denies known trauma. Review of Systems Review of Systems Constitutional: Denies fever or chills [] Eyes: Denies change in visual acuity, redness, or eye pain [] HENT: Denies nasal congestion or sore throat [] Respiratory: Reports nonproductive cough and progressive dyspnea Cardiovascular: Denies chest pain or palpitations GI: Denies abdominal pain, nausea, vomiting, or diarrhea [] : Denies dysuria or hematuria [] Musculoskeletal: Denies back pain or joint pain [] Integument: Denies rash or skin lesions [] Neurologic: Denies headache, focal weakness or sensory changes [] Complete systems were reviewed and found to be within normal limits, except as documented in this note. Current Medications Current Medications Allergies Allergies Allergies Coded Allergies Type Severity Reaction Last Updated Verified lisinopril Allergy Intermediate COUGH 06/13/18 Yes I S O L A T I O N *CONTACT* Allergy Unknown 06/13/18 Yes Physical Exam Physical Exam Constitutional: Well developed, well nourished, no acute distress, non-toxic appearance. [] HENT: Normocephalic, atraumatic, oropharynx moist, nose normal. [] Eyes: Conjunctiva normal, no discharge. [] Neck: Normal range of motion, no tenderness, supple Cardiovascular: Heart rate regular rhythm, no murmur [] Lungs & Thorax: Diffuse wheezing, diminished breath sounds at bases Abdomen: Soft, no tenderness Skin: Warm, dry, no erythema, no rash. [] ] Extremities: No calf tenderness,, ROM intact, no edema. [] Neurologic: Alert and oriented X 3, normal motor function, normal sensory function, no focal deficits noted. [] Psychologic: Affect normal, judgement normal, mood normal. [] Current Patient Data Vital Signs Vital Signs Date Time Temp Pulse Resp B/P (MAP) Pulse Ox O2 Delivery O2 Flow Rate FiO2 10/12/18 20:05 98.7 115 26 181/90 (120) 98 Room Air 98.7 EKG EKG @2059 Sinus tachycardia at 104bpm, NO ST elevation Radiology/Procedures Radiology/Procedures PROCEDURE: CHEST PA & LATERAL EXAM: AP View of the chest DATE: 10/12/2018 8:46 PM INDICATION: DYSPNEA COMPARISON: 10/02/2018 FINDINGS: The heart is not enlarged. Mediastinal and hilar contours are normal. No focal parenchymal airspace opacity. Trace right pleural effusion versus pleural thickening. No pneumothorax. IMPRESSION: 1. Trace right pleural effusion versus pleural thickening. 2. Otherwise no evidence for acute cardiopulmonary process. Electronically signed by: Rodriguez Moran MD (10/13/2018 5:57 AM) [facility] Course & Med Decision Making Course & Med Decision Making Pertinent Labs and Imaging studies reviewed. (See chart for details) Patient presents with history of present illness and physical exam consistent for COPD exacerbation. Patient has been seen both in the emergency department as well as by her PCP and started on appropriate medications which are now finished. Patient without significant improvement. Patient has failed outpatient therapy. Labs obtained and posted to chart. Potassium and magnesium replaced. EKG stable. Initial troponin negative. Chest x-ray without acute process. Respiratory nebs provided as well as steroid. Patient requiring admission for further evaluation and treatment. Discussed with Dr. Ferrer ( covering for Dr. Biswas-PCP) who is in agreement with admission. Discussed findings and plan with patient, who acknowledges understanding and agreement. Dragon Disclaimer Dragon Disclaimer This electronic medical record was generated, in whole or in part, using a voice recognition dictation system. Departure Departure Impression: Primary Impression: COPD exacerbation Additional Impressions: Failure of outpatient treatment Hypokalemia Hypomagnesemia Disposition: ADMITTED INPATIENT Admitting Physician: Florence Ferrer (covering for Dr. Biswas) Condition: STABLE Referrals: ALLIE BISWAS MD (PCP) Problem Qualifiers KELLEN BECKER DO Oct 12, 2018 20:27
[2018-10-12] MEDS ORDERED: DEXTROSE 50% 25 GM / 50ML DISP.SYRIN. IV PRN (20:30)
[2018-10-12] MEDS ORDERED: ONDANSETRON PF 4 MG/2 ML VIAL. IV PRN (20:30)
[2018-10-12] MEDS ORDERED: ACETAMINOPHEN 325 MG TABLET. PO PRN (20:30)
[2018-10-12] MEDS ORDERED: IV NORMAL SALINE 1000ML BAG 1,000 ML IV ONE (21:00)
[2018-10-12] MEDS ORDERED: IPRATRPIUM/ALBUTEROL 0.5/2.5MG 3 ML NEBU. NEB ONE (21:00)
[2018-10-12] MEDS ORDERED: DEXAMETHASONE SOD PHOS 20 MG/5 ML VIAL. IV ONE (21:00)
[2018-10-12 21:01] LABS: BASO # 0.1 x10^3/uL (0.0-0.2); BASO % 1 % (0-3); EOS # 0.1 x10^3/uL (0.0-0.7); EOS % 1 % (0-3); HEMATOCRIT 39.7 % (36.0-47.0); HEMOGLOBIN 13.2 g/dL (12.0-15.5); LYMPH # 2.9 x10^3/uL (1.0-4.8); LYMPH % 24 % (24-48); MEAN CORPUSCULAR HEMOGLOBIN 30 pg (25-35); MEAN CORPUSCULAR HGB CONC 33 g/dL (31-37); MEAN CORPUSCULAR VOLUME 90 fL (79-100); MONO # 0.8 x10^3/uL (0.0-1.1); MONO % 7 % (0-9); NEUT # 8.1 x10^3uL (1.8-7.7); NEUT % 67 % (31-73); PLATELET COUNT 209 x10^3/uL (140-400); RED BLOOD COUNT 4.41 x10^6/uL (3.50-5.40); RED CELL DISTRIBUTION WIDTH 14.8 % (11.5-14.5); WHITE BLOOD COUNT 12.1 x10^3/uL (4.0-11.0)
[2018-10-12 21:15] LABS: ALBUMIN 3.3 g/dL (3.4-5.0); ALBUMIN/GLOBULIN RATIO 0.7 (1.0-1.7); CREATININE 0.9 mg/dL (0.6-1.0); GFR 81.2; TOTAL BILIRUBIN 0.2 mg/dL (0.2-1.0); TOTAL PROTEIN 8.1 g/dL (6.4-8.2)
[2018-10-12 21:17] LABS: INFLUENZA A PATIENT NEGATIVE (NEGATIVE); INFLUENZA B PATIENT NEGATIVE (NEGATIVE)
[2018-10-12 21:58] LABS: ANISOCYTOSIS SLIGHT; PLATELET CLUMP PRESENT; PLT ESTIMATE ADEQUATE (ADEQUATE); POLYCHROMASIA SLIGHT
[2018-10-12 22:10] VITALS: BP 187/111
[2018-10-12] MEDS ORDERED: POTASSIUM CHLORIDE 20 MEQ TABLET.ER. PO ONE (22:30)
[2018-10-12 23:15] VITALS: BP 194/99
[2018-10-12] MEDS ORDERED: LOSARTAN POTASSIUM 50 MG TABLET. PO ONE (23:30)
[2018-10-13] MEDS ORDERED: SUMA50TA3 PO (01:31)
[2018-10-13] MEDS ORDERED: RANI150T2 PO (01:31)
[2018-10-13] MEDS ORDERED: COLC0.6T34 PO (01:31)
[2018-10-13] MEDS ORDERED: BUDE10.2 IH (01:31)
[2018-10-13] MEDS ORDERED: HYDR25CA PO (01:31)
[2018-10-13] MEDS ORDERED: FERR325T14 PO (01:31)
[2018-10-13] MEDS ORDERED: MELO15TA23 PO (01:31)
[2018-10-13 03:00] VITALS: BP 166/97
--- NOTE | 2018-10-13 05:59 | RAD ---
EXAM: AP View of the chest DATE: 10/12/2018 8:46 PM INDICATION: DYSPNEA COMPARISON: 10/02/2018 FINDINGS: The heart is not enlarged. Mediastinal and hilar contours are normal. No focal parenchymal airspace opacity. Trace right pleural effusion versus pleural thickening. No pneumothorax. IMPRESSION: 1. Trace right pleural effusion versus pleural thickening. 2. Otherwise no evidence for acute cardiopulmonary process. Electronically signed by: Rodriguez Moran MD (10/13/2018 5:57 AM) [facility]
[2018-10-13 07:00] VITALS: BP 181/99
[2018-10-13] MEDS ORDERED: MAGNESIUM SULFATE 2GM 50 ML IV ONE (07:00)
[2018-10-13] MEDS: amLODIPine BESYLATE 10 MG TABLET PO SCH (07:59)
[2018-10-13] MEDS: LOSARTAN POTASSIUM 50 MG TABLET. PO SCH (07:59)
[2018-10-13] MEDS: METOPROLOL SUCC 24HR ER 100 MG TAB.ER.24H. PO SCH (08:00)
[2018-10-13] MEDS: INSULIN LISPRO 300 UNITS/3 ML INSULN.PEN. SQ SCH ×3 (08:04→17:00)
[2018-10-13] MEDS: IPRATRPIUM/ALBUTEROL 0.5/2.5MG 3 ML NEBU. NEB SCH ×4 (08:18→20:01)
[2018-10-13 11:00] VITALS: BP 154/88
[2018-10-13] MEDS: ARIPiprazole 5 MG TABLET PO SCH (11:54)
[2018-10-13] MEDS: COLCHICINE 0.6 MG TABLET PO SCH (11:54)
[2018-10-13] MEDS: CETIRIZINE HCL 10 MG TABLET. PO SCH (11:54)
[2018-10-13] MEDS: EZETIMIBE 10 MG TABLET. PO SCH (11:54)
[2018-10-13] MEDS: MELOXICAM 7.5 MG TABLET PO SCH (11:55)
[2018-10-13] MEDS: POTASSIUM CHLORIDE 20 MEQ TABLET.ER. PO SCH (11:57)
[2018-10-13] MEDS: FERROUS SULFATE 325 MG TABLET. PO SCH (11:58)
[2018-10-13] MEDS: MULTIVITAMIN with MINERAL TABLET. PO SCH (11:58)
[2018-10-13] MEDS: ALLOPURINOL 100 MG TABLET. PO SCH (11:59)
[2018-10-13] MEDS: ALBUTEROL SULFATE 2.5 MG/3 ML NEBU. NEB SCH ×2 (12:32→15:50)
--- NOTE | 2018-10-13 14:48 | EKG ---
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
[2018-10-13 15:00] VITALS: BP 170/111
[2018-10-13] MEDS ORDERED: ALBUTEROL SULFATE 2.5 MG/3 ML NEBU. NEB PRN (16:45)
[2018-10-13] MEDS ORDERED: DEXTROSE 50% 25 GM / 50ML DISP.SYRIN. IV PRN (16:45)
--- NOTE | 2018-10-13 16:45 | PDOC1 ---
History and Physical Date of Admission Date of Admission 10/12/18 Identification/Chief Complaint Chief Complaint asthma Source Source: Chart review, Patient History of Present Illness History of Present Illness She had an asthma/COPD exac that sent her to the ER 10/02/18 and followed up in the office 10/04/[address] Biswas and a steroid taper was extended. She was also hypertensive and started on clonidine. She has had worsening wheezing and cough and SOA and advised to cone to the ER which she did and has been admitted for more intensive pulmonary toilette Past Medical History Cardiovascular: HTN, Hyperlipidemia Pulmonary: Asthma, COPD CENTRAL NERVOUS SYSTEM: Migraine GI: Diverticulosis, GERD Heme/Onc: Anemia NOS, Other Hepatobiliary: No pertinent hx Psych: Anxiety, Depression Rheumatologic: Gout, Other Infectious disease: No pertinent hx Renal/: Chronic renal insuff Endocrine: Other Past Surgical History Past Surgical History: Appendectomy, Tubal Ligation, Hysterectomy, Other Family History Family History: Asthma, Diabetes, Hypertension Family History: Parent Social History ALCOHOL: social Drugs: Cocaine Current Problem List Problem List Current Medications Current Medications Current Medications Medications (Trade) Dose Ordered Sig/Nona Start Time Stop Time Status Last Admin Dose Admin Acetaminophen (Tylenol) 650 mg PRN Q4HRS PRN 10/12/18 20:30 10/13/18 20:29 Albuterol Sulfate (Ventolin Neb Soln) 2.5 mg Q4HRS 10/13/18 12:00 10/13/18 15:50 2.5 MG Albuterol/ Ipratropium (Duoneb) 3 ml RTQID 10/13/18 08:00 10/14/18 07:59 10/13/18 08:18 3 ML Allopurinol (Zyloprim) 100 mg DAILY 10/13/18 12:00 Amlodipine Besylate (Norvasc) 10 mg DAILY 10/13/18 09:00 10/13/18 07:59 10 MG Aripiprazole (Abilify) 5 mg DAILY 10/13/18 12:00 10/13/18 11:54 5 MG Atorvastatin Calcium (Lipitor) 40 mg QHS 10/13/18 21:00 Budesonide (Pulmicort) 0.5 mg RTBID 10/13/18 20:00 Cetirizine HCl (ZyrTEC) 10 mg DAILY 10/13/18 12:00 10/13/18 11:54 10 MG Colchicine (Colcrys) 0.6 mg DAILY 10/13/18 12:00 10/13/18 11:54 0.6 MG Dexamethasone Sodium Phosphate (Decadron) 10 mg 1X ONCE 10/12/18 21:00 10/12/18 21:01 DC 10/12/18 21:53 10 MG Dextrose (Dextrose 50%-Water Syringe) 12.5 gm PRN Q15MIN PRN 10/12/18 20:30 EZETIMIBE (Zetia) 10 mg DAILY 10/13/18 12:00 10/13/18 11:54 10 MG Famotidine (Pepcid) 20 mg BID 10/13/18 21:00 Ferrous Sulfate (Feosol) 325 mg DAILY 10/13/18 12:00 Hydralazine HCl (Apresoline) 50 mg QID 10/13/18 09:00 10/13/18 11:54 50 MG Hydroxyzine Pamoate (Vistaril) 25 mg PRN Q6HRS PRN 10/13/18 10:45 Insulin Human Lispro (HumaLOG) 0-5 UNITS TIDWMEALS 10/13/18 08:00 10/13/18 12:21 2 UNITS Losartan Potassium (Cozaar) 100 mg DAILY 10/13/18 09:00 10/13/18 07:59 100 MG Magnesium Sulfate 50 ml @ 25 mls/hr 1X ONCE 10/13/18 07:00 10/13/18 08:59 DC 10/13/18 07:12 25 MLS/HR Meloxicam (Mobic) 15 mg DAILY 10/13/18 11:00 10/13/18 11:55 15 MG Metoprolol Succinate (Toprol Xl) 100 mg DAILY 10/13/18 09:00 10/13/18 08:00 100 MG Multivitamins (Thera M Plus) 1 tab DAILY 10/13/18 12:00 Ondansetron HCl (Zofran) 4 mg PRN Q8HRS PRN 10/12/18 20:30 10/13/18 20:29 Potassium Chloride (Klor-Con) 20 meq DAILYWBKFT 10/13/18 12:00 10/13/18 11:57 20 MEQ Sodium Chloride 1,000 ml @ 1,000 mls/hr 1X ONCE 10/12/18 21:00 10/12/18 21:59 DC 10/12/18 21:51 1,000 MLS/HR Allergies Allergies Allergies Coded Allergies Type Severity Reaction Last Updated Verified lisinopril Allergy Intermediate COUGH 06/13/18 Yes I S O L A T I O N *CONTACT* Allergy Unknown 06/13/18 Yes ROS Review of System CONSTITUTIONAL: No fever or chills EYES: No recent changes SKIN: No rash or itching CARDIOVASCULAR: No chest pain, syncope, palpitations, or edema RESPIRATORY: see HPI GASTROINTESTINAL: No nausea, vomiting or abdominal pain NEUROLOGICAL: No headaches or weakness ENDOCRINE: No cold or heat intolerance GENITOURINARY: No urgency or frequency of urination MUSCULOSKELETAL: No back pain or joint pain LYMPHATICS: No enlarged lymph nodes PSYCHIATRIC: No anxiety or depression Physical Exam Physical Exam GEN.: No apparent distress. Alert and oriented. HEENT: Head is normocephalic, atraumatic NECK: Supple. LUNGS: bilateral expiratory wheezes. HEART: RRR, S1, S2 present. Peripheral pulses intact ABDOMEN: Soft, nontender. Positive bowel sounds. EXTREMITIES: Without any cyanosis. NEUROLOGIC: Normal speech, normal tone PSYCHIATRIC: Normal affect, normal mood. SKIN: No ulcerations Vitals Vitals Vital Signs Date Time Temp Pulse Resp B/P (MAP) Pulse Ox O2 Delivery O2 Flow Rate FiO2 10/13/18 15:52 Room Air 10/13/18 15:00 98.1 66 18 170/111 (130) 100 98.1 Labs Labs Laboratory Tests Test 10/12/18 20:47 10/12/18 22:24 10/13/18 00:10 10/13/18 02:45 White Blood Count 12.1 x10^3/uL (4.0-11.0) Red Blood Count 4.41 x10^6/uL (3.50-5.40) Hemoglobin 13.2 g/dL (12.0-15.5) Hematocrit 39.7 % (36.0-47.0) Mean Corpuscular Volume 90 fL (79-100) Mean Corpuscular Hemoglobin 30 pg (25-35) Mean Corpuscular Hemoglobin Concent 33 g/dL (31-37) Red Cell Distribution Width 14.8 % (11.5-14.5) Platelet Count 209 x10^3/uL (140-400) Neutrophils (%) (Auto) 67 % (31-73) Lymphocytes (%) (Auto) 24 % (24-48) Monocytes (%) (Auto) 7 % (0-9) Eosinophils (%) (Auto) 1 % (0-3) Basophils (%) (Auto) 1 % (0-3) Neutrophils # (Auto) 8.1 x10^3uL (1.8-7.7) Lymphocytes # (Auto) 2.9 x10^3/uL (1.0-4.8) Monocytes # (Auto) 0.8 x10^3/uL (0.0-1.1) Eosinophils # (Auto) 0.1 x10^3/uL (0.0-0.7) Basophils # (Auto) 0.1 x10^3/uL (0.0-0.2) Platelet Estimate Adequate (ADEQUATE) Platelet Clumps, EDTA Present Polychromasia Slight Anisocytosis Slight Sodium Level 139 mmol/L (136-145) Potassium Level 3.0 mmol/L (3.5-5.1) Chloride Level 102 mmol/L (98-107) Carbon Dioxide Level 24 mmol/L (21-32) Anion Gap 13 (6-14) Blood Urea Nitrogen 8 mg/dL (7-20) Creatinine 0.9 mg/dL (0.6-1.0) Estimated GFR (Cockcroft-Gault) 81.2 BUN/Creatinine Ratio 9 (6-20) Glucose Level 115 mg/dL (70-99) Calcium Level 9.0 mg/dL (8.5-10.1) Total Bilirubin 0.2 mg/dL (0.2-1.0) Aspartate Amino Transf (AST/SGOT) 42 U/L (15-37) Alanine Aminotransferase (ALT/SGPT) 52 U/L (14-59) Alkaline Phosphatase 85 U/L (46-116) Creatine Kinase 134 U/L (26-192) Creatine Kinase MB (Mass) 1.6 ng/mL (0.0-3.6) Creatine Kinase MB Relative Index 1.2 % (0-4) Troponin I Quantitative < 0.017 ng/mL (0.000-0.055) < 0.017 ng/mL (0.000-0.055) < 0.017 ng/mL (0.000-0.055) DE-Jdf-G-Type Natriuretic Peptide 166 pg/mL (0-124) Total Protein 8.1 g/dL (6.4-8.2) Albumin 3.3 g/dL (3.4-5.0) Albumin/Globulin Ratio 0.7 (1.0-1.7) Influenza Type A Antigen Negative (NEGATIVE) Influenza Type B Antigen Negative (NEGATIVE) Glucose (Fingerstick) 104 mg/dL (70-99) Magnesium Level 1.7 mg/dL (1.8-2.4) Test 10/13/18 07:14 10/13/18 11:13 10/13/18 16:15 Glucose (Fingerstick) 198 mg/dL (70-99) 163 mg/dL (70-99) 126 mg/dL (70-99) Laboratory Tests Test 10/12/18 20:47 10/12/18 22:24 10/13/18 00:10 10/13/18 02:45 White Blood Count 12.1 x10^3/uL (4.0-11.0) Red Blood Count 4.41 x10^6/uL (3.50-5.40) Hemoglobin 13.2 g/dL (12.0-15.5) Hematocrit 39.7 % (36.0-47.0) Mean Corpuscular Volume 90 fL (79-100) Mean Corpuscular Hemoglobin 30 pg (25-35) Mean Corpuscular Hemoglobin Concent 33 g/dL (31-37) Red Cell Distribution Width 14.8 % (11.5-14.5) Platelet Count 209 x10^3/uL (140-400) Neutrophils (%) (Auto) 67 % (31-73) Lymphocytes (%) (Auto) 24 % (24-48) Monocytes (%) (Auto) 7 % (0-9) Eosinophils (%) (Auto) 1 % (0-3) Basophils (%) (Auto) 1 % (0-3) Neutrophils # (Auto) 8.1 x10^3uL (1.8-7.7) Lymphocytes # (Auto) 2.9 x10^3/uL (1.0-4.8) Monocytes # (Auto) 0.8 x10^3/uL (0.0-1.1) Eosinophils # (Auto) 0.1 x10^3/uL (0.0-0.7) Basophils # (Auto) 0.1 x10^3/uL (0.0-0.2) Platelet Estimate Adequate (ADEQUATE) Platelet Clumps, EDTA Present Polychromasia Slight Anisocytosis Slight Sodium Level 139 mmol/L (136-145) Potassium Level 3.0 mmol/L (3.5-5.1) Chloride Level 102 mmol/L (98-107) Carbon Dioxide Level 24 mmol/L (21-32) Anion Gap 13 (6-14) Blood Urea Nitrogen 8 mg/dL (7-20) Creatinine 0.9 mg/dL (0.6-1.0) Estimated GFR (Cockcroft-Gault) 81.2 BUN/Creatinine Ratio 9 (6-20) Glucose Level 115 mg/dL (70-99) Calcium Level 9.0 mg/dL (8.5-10.1) Total Bilirubin 0.2 mg/dL (0.2-1.0) Aspartate Amino Transf (AST/SGOT) 42 U/L (15-37) Alanine Aminotransferase (ALT/SGPT) 52 U/L (14-59) Alkaline Phosphatase 85 U/L (46-116) Creatine Kinase 134 U/L (26-192) Creatine Kinase MB (Mass) 1.6 ng/mL (0.0-3.6) Creatine Kinase MB Relative Index 1.2 % (0-4) Troponin I Quantitative < 0.017 ng/mL (0.000-0.055) < 0.017 ng/mL (0.000-0.055) < 0.017 ng/mL (0.000-0.055) ZZ-Edm-H-Type Natriuretic Peptide 166 pg/mL (0-124) Total Protein 8.1 g/dL (6.4-8.2) Albumin 3.3 g/dL (3.4-5.0) Albumin/Globulin Ratio 0.7 (1.0-1.7) Influenza Type A Antigen Negative (NEGATIVE) Influenza Type B Antigen Negative (NEGATIVE) Glucose (Fingerstick) 104 mg/dL (70-99) Magnesium Level 1.7 mg/dL (1.8-2.4) Test 10/13/18 07:14 10/13/18 11:13 10/13/18 16:15 Glucose (Fingerstick) 198 mg/dL (70-99) 163 mg/dL (70-99) 126 mg/dL (70-99) Images Images EXAM: AP View of the chest DATE: 10/12/2018 8:46 PM INDICATION: DYSPNEA COMPARISON: 10/02/2018 FINDINGS: The heart is not enlarged. Mediastinal and hilar contours are normal. No focal parenchymal airspace opacity. Trace right pleural effusion versus pleural thickening. No pneumothorax. IMPRESSION: 1. Trace right pleural effusion versus pleural thickening. 2. Otherwise no evidence for acute cardiopulmonary process. VTE Prophylaxis Ordered VTE Prophylaxis Devices: No VTE Pharmacological Prophylaxi: Yes (lovenox) Assessment/Plan Assessment/Plan acute COPD/asthma exac - IV and inhaled steroids, neb treatments HTN - increase meds hypokalemia - replace hypomagnesemia - replace steroid induced leukocytosis and hyperglycemia - monitor Bernie ANTHONY MD Oct 13, 2018 16:45
[2018-10-13] MEDS ORDERED: ENOXAPARIN 40 MG/0.4 ML SYRINGE. SQ SCH (17:00)
[2018-10-13 19:00] VITALS: BP 171/101
[2018-10-13] MEDS ORDERED: CYCLOBENZAPRINE 10 MG TABLET. PO ONE (19:00)
[2018-10-13] MEDS: BUDESONIDE 0.5 MG/2 ML NEBU. NEB SCH (20:02)
[2018-10-13] MEDS: ATORVASTATIN CALCIUM 40 MG TABLET. PO SCH (20:39)
[2018-10-13] MEDS: FAMOTIDINE 20 MG TABLET. PO SCH (20:40)
[2018-10-13] MEDS: ENOXAPARIN 40 MG/0.4 ML SYRINGE. SQ SCH (20:41)
--- NOTE | 2018-10-13 21:02 | NUR ---
pt was admitted to the unit at 2230 on 10/12/18. Admission assessment and documentation was done at that time, time was edited incorrectly by MIKE. Addendum: 10/13/18 at 2104 by NATIVIDAD RODRIGUEZ RN RN Amended: Links added.
[2018-10-13] MEDS: methylPREDNISolone SOD SUCC PF 40 MG/ML VIAL. IV SCH (22:09)
[2018-10-13 23:00] VITALS: BP 153/95
[2018-10-14 03:00] VITALS: BP 167/99
[2018-10-14] MEDS: methylPREDNISolone SOD SUCC PF 40 MG/ML VIAL. IV SCH ×3 (05:59→21:58)
[2018-10-14 07:00] VITALS: BP 151/93
[2018-10-14] MEDS: BUDESONIDE 0.5 MG/2 ML NEBU. NEB SCH ×2 (07:32→19:33)
[2018-10-14] MEDS: IPRATRPIUM/ALBUTEROL 0.5/2.5MG 3 ML NEBU. NEB SCH ×3 (07:32→19:33)
[2018-10-14] MEDS: FAMOTIDINE 20 MG TABLET. PO SCH ×2 (07:49→20:14)
[2018-10-14] MEDS: POTASSIUM CHLORIDE 20 MEQ TABLET.ER. PO SCH (07:49)
[2018-10-14] MEDS: CETIRIZINE HCL 10 MG TABLET. PO SCH (07:49)
[2018-10-14] MEDS: amLODIPine BESYLATE 10 MG TABLET PO SCH (07:50)
[2018-10-14] MEDS: MELOXICAM 7.5 MG TABLET PO SCH (07:50)
[2018-10-14] MEDS: ARIPiprazole 5 MG TABLET PO SCH (07:51)
[2018-10-14] MEDS: METOPROLOL SUCC 24HR ER 100 MG TAB.ER.24H. PO SCH (07:51)
[2018-10-14] MEDS: COLCHICINE 0.6 MG TABLET PO SCH (07:51)
[2018-10-14] MEDS: EZETIMIBE 10 MG TABLET. PO SCH (07:51)
[2018-10-14] MEDS: FERROUS SULFATE 325 MG TABLET. PO SCH (07:52)
[2018-10-14] MEDS: LOSARTAN POTASSIUM 50 MG TABLET. PO SCH (07:52)
[2018-10-14] MEDS: INSULIN LISPRO 300 UNITS/3 ML INSULN.PEN. SQ SCH ×3 (07:56→17:00)
[2018-10-14] MEDS: MULTIVITAMIN with MINERAL TABLET. PO SCH (07:57)
[2018-10-14] MEDS: ALLOPURINOL 100 MG TABLET. PO SCH (07:57)
[2018-10-14 11:00] VITALS: BP 160/102
[2018-10-14] MEDS ORDERED: ALBUTEROL SULFATE 2.5 MG/3 ML NEBU. NEB SCH (11:45)
--- NOTE | 2018-10-14 11:54 | PDOC ---
PROGRESS NOTES Subjective Still wheezing, coughing has flared up back pain, requesting narcotics as other meds not helping, She is up and about without any sign of pain Objective Afebrile General: NAD Heart: RRR Lungs: wheezes throughout Abd: soft, non tender Ext: no C/C/E Vital Signs Vital Signs Date Time Temp Pulse Resp B/P (MAP) Pulse Ox O2 Delivery O2 Flow Rate FiO2 10/14/18 11:31 97 Room Air 10/14/18 07:52 66 151/93 10/14/18 07:00 98.1 18 98.1 I & O Intake and Output 10/14/18 07:00 Intake Total 2880 ml Output Total 800 ml Balance 2080 ml Intake Oral 2880 ml Output Urine Total 800 ml # Voids 5 Assessment and Plan acute COPD/asthma exac - continue IV and inhaled steroids, neb treatments HTN - increased meds hypokalemia - replace hypomagnesemia - replace steroid induced leukocytosis and hyperglycemia - monitor, SSI back pain - prn [place] bid Bernie ANTHONY MD Oct 14, 2018 11:54
[2018-10-14] MEDS: HYDROcodone/APAP 5/325MG 1 TAB TABLET PO PRN ×2 (13:21→20:13)
[2018-10-14 15:00] VITALS: BP 148/88
[2018-10-14 19:00] VITALS: BP 171/100
[2018-10-14] MEDS: ATORVASTATIN CALCIUM 40 MG TABLET. PO SCH (20:14)
[2018-10-14] MEDS: ENOXAPARIN 40 MG/0.4 ML SYRINGE. SQ SCH (20:15)
[2018-10-14 23:03] VITALS: BP 178/83
[2018-10-14] MEDS: hydrOXYzine PAMOATE 25 MG CAPSULE PO PRN (23:50)
[2018-10-15] VITALS (7 sets, daily range): BP systolic 169–182; BP diastolic 89–113
[2018-10-15 05:18] LABS: BASO # 0.1 x10^3/uL (0.0-0.2); BASO % 0 % (0-3); EOS % 0 % (0-3); HEMATOCRIT 39.1 % (36.0-47.0); HEMOGLOBIN 12.9 g/dL (12.0-15.5); LYMPH # 0.9 x10^3/uL (1.0-4.8); LYMPH % 4 % (24-48); MEAN CORPUSCULAR HEMOGLOBIN 30 pg (25-35); MEAN CORPUSCULAR HGB CONC 33 g/dL (31-37); MEAN CORPUSCULAR VOLUME 92 fL (79-100); MONO # 0.4 x10^3/uL (0.0-1.1); MONO % 2 % (0-9); NEUT # 18.6 x10^3uL (1.8-7.7); NEUT % 93 % (31-73); PLATELET COUNT 357 x10^3/uL (140-400); RED BLOOD COUNT 4.27 x10^6/uL (3.50-5.40); RED CELL DISTRIBUTION WIDTH 14.8 % (11.5-14.5); WHITE BLOOD COUNT 19.9 x10^3/uL (4.0-11.0)
[2018-10-15 05:55] LABS: CALCIUM 9.3 mg/dL (8.5-10.1); CREATININE 1.1 mg/dL (0.6-1.0); GFR 64.4; MAGNESIUM 2.1 mg/dL (1.8-2.4); POTASSIUM 4.3 mmol/L (3.5-5.1)
[2018-10-15] MEDS: hydrOXYzine PAMOATE 25 MG CAPSULE PO PRN (06:19)
[2018-10-15] MEDS: methylPREDNISolone SOD SUCC PF 40 MG/ML VIAL. IV SCH ×3 (06:19→20:52)
[2018-10-15 07:15] LABS: % BANDS 5 % (0-9); % LYMPHS 4 % (24-48); % MONOS 2 % (0-10); % SEGS 89 % (35-66); ANISOCYTOSIS SLIGHT; PLT ESTIMATE ADEQUATE (ADEQUATE)
[2018-10-15] MEDS ORDERED: PROMETHAZINE 6.25 MG/5 ML SYRUP. PO PRN (07:15)
--- NOTE | 2018-10-15 07:16 | PDOC ---
SUBJECTIVE Subjective Pt is feeling much better but is still pretty short of air when she is ambulating. Has an appointment tomorrow with her lupus doctor so will definitely need to leave in the morning, but does not feel quite ready to go home. OBJECTIVE Vital Signs Vital Signs Date Time Temp Pulse Resp B/P (MAP) Pulse Ox O2 Delivery O2 Flow Rate FiO2 10/15/18 03:08 97.5 87 20 177/103 (127) 97 Room Air 97.5 10/14/18 23:03 97.9 98 20 178/83 (114) 97 Room Air 97.9 10/14/18 21:13 20 99 Room Air 10/14/18 20:14 86 171/100 10/14/18 20:13 20 99 Room Air 10/14/18 20:00 Room Air 10/14/18 19:35 99 Room Air 10/14/18 19:34 99 Room Air 10/14/18 19:00 97.9 86 20 171/100 (123) 96 Room Air 97.9 10/14/18 17:24 74 153/96 10/14/18 15:25 99 Room Air 10/14/18 15:00 98.1 73 18 148/88 (108) 96 Room Air 98.1 10/14/18 13:21 Room Air 10/14/18 13:21 84 160/102 10/14/18 11:31 97 Room Air 10/14/18 11:00 98.2 84 18 160/102 (121) 100 Room Air 98.2 10/14/18 08:00 Room Air 10/14/18 07:52 66 151/93 10/14/18 07:51 66 151/93 10/14/18 07:50 66 151/93 10/14/18 07:50 66 151/93 10/14/18 07:32 97 Room Air I & O Intake and Output 10/15/18 07:00 Intake Total 1080 ml Balance 1080 ml Intake Oral 1080 ml # Voids 3 PHYSICAL EXAM Physical Exam GEN: NAD, AOx3 HEENT: MMM, EOMI, no scleral icterus/injection Cardiac: RRR, no M/R/G Lungs: CTAB, short breaths Ext: no erythema/edema LE bilaterally Neuro: CN2-12 GI ASSESSMENT/PLAN Assessment/Plan Pt is a 48yo AAF admitted for asthma exacerbation 1)Asthma exacerbation- continue IV steroids, plan on discharge tomorrow. Pt has had frequent admission for asthma/COPD; will consult pulmonary to see patient before she discharges. Many exacerbations in the past due to cocaine use; UDS pending. 2)HTN- not at goal. Pt has not been receiving her HCTZ 25mg so will restart. Continue Hydralazine 50mg QID, Metoprolol 100mg XR, Losartan 100mg and Norvasc 10mg 3)Hypokalemia/Hypomg- resolved 4)Steroid induced hyperglycemia- HbA1C pending. Has SSI available if needed 5)HLD- pt continued on Atorvastatin 40mg 6)Gout COMMENT Lab Laboratory Tests Test 10/14/18 07:53 10/14/18 11:36 10/14/18 16:23 10/14/18 20:32 Glucose (Fingerstick) 118 mg/dL (70-99) 210 mg/dL (70-99) 142 mg/dL (70-99) 191 mg/dL (70-99) Test 10/15/18 04:27 White Blood Count 19.9 x10^3/uL (4.0-11.0) Red Blood Count 4.27 x10^6/uL (3.50-5.40) Hemoglobin 12.9 g/dL (12.0-15.5) Hematocrit 39.1 % (36.0-47.0) Mean Corpuscular Volume 92 fL (79-100) Mean Corpuscular Hemoglobin 30 pg (25-35) Mean Corpuscular Hemoglobin Concent 33 g/dL (31-37) Red Cell Distribution Width 14.8 % (11.5-14.5) Platelet Count 357 x10^3/uL (140-400) Neutrophils (%) (Auto) 93 % (31-73) Lymphocytes (%) (Auto) 4 % (24-48) Monocytes (%) (Auto) 2 % (0-9) Eosinophils (%) (Auto) 0 % (0-3) Basophils (%) (Auto) 0 % (0-3) Neutrophils # (Auto) 18.6 x10^3uL (1.8-7.7) Lymphocytes # (Auto) 0.9 x10^3/uL (1.0-4.8) Monocytes # (Auto) 0.4 x10^3/uL (0.0-1.1) Eosinophils # (Auto) 0.0 x10^3/uL (0.0-0.7) Basophils # (Auto) 0.1 x10^3/uL (0.0-0.2) Sodium Level 139 mmol/L (136-145) Potassium Level 4.3 mmol/L (3.5-5.1) Chloride Level 102 mmol/L (98-107) Carbon Dioxide Level 24 mmol/L (21-32) Anion Gap 13 (6-14) Blood Urea Nitrogen 19 mg/dL (7-20) Creatinine 1.1 mg/dL (0.6-1.0) Estimated GFR (Cockcroft-Gault) 64.4 Glucose Level 154 mg/dL (70-99) Calcium Level 9.3 mg/dL (8.5-10.1) Magnesium Level 2.1 mg/dL (1.8-2.4) ALLIE MARES MD Oct 15, 2018 07:16
[2018-10-15] MEDS: INSULIN LISPRO 300 UNITS/3 ML INSULN.PEN. SQ SCH ×3 (07:55→16:45)
[2018-10-15] MEDS: IPRATRPIUM/ALBUTEROL 0.5/2.5MG 3 ML NEBU. NEB SCH ×4 (08:07→20:25)
[2018-10-15] MEDS: BUDESONIDE 0.5 MG/2 ML NEBU. NEB SCH ×2 (08:08→20:25)
[2018-10-15] MEDS: POTASSIUM CHLORIDE 20 MEQ TABLET.ER. PO SCH (08:27)
[2018-10-15] MEDS: LOSARTAN POTASSIUM 50 MG TABLET. PO SCH (08:28)
[2018-10-15] MEDS: ARIPiprazole 5 MG TABLET PO SCH (08:28)
[2018-10-15] MEDS: ALLOPURINOL 100 MG TABLET. PO SCH (08:28)
[2018-10-15] MEDS: MELOXICAM 7.5 MG TABLET PO SCH (08:29)
[2018-10-15] MEDS: CETIRIZINE HCL 10 MG TABLET. PO SCH (08:29)
[2018-10-15] MEDS: EZETIMIBE 10 MG TABLET. PO SCH (08:29)
[2018-10-15] MEDS: METOPROLOL SUCC 24HR ER 100 MG TAB.ER.24H. PO SCH (08:30)
[2018-10-15] MEDS: amLODIPine BESYLATE 10 MG TABLET PO SCH (08:30)
[2018-10-15] MEDS: FAMOTIDINE 20 MG TABLET. PO SCH ×2 (08:30→20:51)
[2018-10-15] MEDS: COLCHICINE 0.6 MG TABLET PO SCH (08:30)
[2018-10-15] MEDS: FERROUS SULFATE 325 MG TABLET. PO SCH (08:33)
[2018-10-15] MEDS: MULTIVITAMIN with MINERAL TABLET. PO SCH (08:33)
[2018-10-15] MEDS ORDERED: hydroCHLOROthiazide 25 MG TABLET PO SCH (09:00)
--- NOTE | 2018-10-15 09:16 | NUR ---
IP: Pt is mrsa screen + requiring contact precautions. Pt has had a hx of mrsa since 2014.
[2018-10-15 10:15] LABS: BARBITURATES NEG (NEG); BENZODIAZEPINES NEG (NEG); CANNABINOIDS NEG (NEG); COCAINE NEG (NEG); METHADONE NEG (NEG); OPIATES POS (NEG); PHENCYCLIDINE NEG (NEG)
[2018-10-15 10:16] LABS: AMPHETAMINE/METHAMPHETAMINE NEG (NEG)
[2018-10-15] MEDS: HYDROcodone/APAP 5/325MG 1 TAB TABLET PO PRN (12:13)
--- NOTE | 2018-10-15 14:09 | CONS ---
DATE OF CONSULTATION: ATTENDING PHYSICIAN: Dr. Cayetano Biswas. REASON FOR CONSULTATION: Dyspnea. HISTORY OF PRESENT ILLNESS: The patient is a 48-year-old female with history of chronic obstructive airway disease and continues to smoke cigarettes. She presented to the hospital with increasing dyspnea. She had some increased wheezing. She has a cough, which has been nonproductive. No headaches, no nausea, vomiting, no diarrhea. No chest pain, no focal weakness. No skin rash. She failed outpatient treatment, as a result, she was hospitalized. Her chest x-ray on admission was reviewed, and there was trace right pleural effusion. Otherwise, no other acute abnormality seen. I have been asked to see her for further evaluation. PAST MEDICAL HISTORY: History of COPD, history of migraine, GERD, depression, gout, chronic renal insufficiency. PAST SURGICAL HISTORY: Appendectomy, tubal ligation, hysterectomy. FAMILY HISTORY: Asthma, diabetes and hypertension. SOCIAL HISTORY: Continues to smoke cigarettes, has been doing for the last 25 years. MEDICATIONS: All reviewed, as listed in the MRAD including IV steroids, albuterol nebs, Pulmicort nebs. REVIEW OF SYSTEMS: Twelve-point system obtained. Pertinent positives discussed in my history of present illness, otherwise noncontributory. All systems that were negative were reviewed as well. PHYSICAL EXAMINATION: VITAL SIGNS: Reviewed. Pulse ox 98% on room air. NECK: Supple. LUNGS: With diminished breath sounds, no wheezing. CARDIOVASCULAR: Regular rate and rhythm. ABDOMEN: Soft, nontender. EXTREMITIES: With no pitting edema. LABORATORY DATA: Reviewed. White cell count went up from 12.1 to 19.9. Potassium 4.3. BUN and creatinine 19 and 1.1. IMPRESSION: 1. Dyspnea secondary to acute exacerbation of chronic obstructive pulmonary disease in a patient who continues to smoke cigarettes. 2. Acute bronchitis. 3. Leukocytosis, likely related to steroids. RECOMMENDATIONS: 1. Smoking cessation counseling provided. She states she has cut down on cigarettes to less than half pack per day. 2. Continue DuoNeb along with Pulmicort. 3. IV steroids with taper. 4. P.r.n. oxygen. 5. Likely discharge in the next 24 hours. MALIK HAGER MD DR: KATIE/keith JOB#: [id number] / [id number] CAYETANO Lr MD
--- NOTE | 2018-10-15 15:50 | NUR ---
SW following pt for anticipated dc needs. Chart reviewed and DW RN. Pt lives at home with family. Pt has been ambulating independently and no SW needs noted at this time.
[2018-10-15] MEDS: ATORVASTATIN CALCIUM 40 MG TABLET. PO SCH (20:51)
[2018-10-15] MEDS: ENOXAPARIN 40 MG/0.4 ML SYRINGE. SQ SCH (20:52)
[2018-10-16 01:11] LABS: HEMOGLOBIN A1C 6.1 % (4.8-5.6)
[2018-10-16 03:00] VITALS: BP 177/103
[2018-10-16] MEDS ORDERED: cloNIDine HCL 0.1 MG TABLET PO PRN (03:15)
[2018-10-16] MEDS: methylPREDNISolone SOD SUCC PF 40 MG/ML VIAL. IV SCH (05:28)
[2018-10-16] MEDS ORDERED: PROM6.257 PO (06:58)
[2018-10-16] MEDS ORDERED: PRED20TA PO (06:58)
[2018-10-16] MEDS ORDERED: HYDR-2145 PO (06:58)
--- NOTE | 2018-10-16 07:02 | PDOC3 ---
Discharge Summary Date of Admission: Oct 13, 2018 Date of Discharge: Oct 16, 2018 Follow-Up: Other (7 days) Admitting Diagnosis comment: Asthma/COPD Exacerbation FINAL DIAGNOSIS Asthma exacerbation, HTN, Hypokalemia/Hypomagnesemia, Steroid induced hyperglycemia, HLD, Gout Brief Hospital Course DISCHARGE PHYSICAL EXAM GEN: NAD, AOx3 HEENT: MMM, EOMI, no scleral icterus/injection Cardiac: RRR, no M/R/G Lungs: CTAB, short breaths Ext: no erythema/edema LE bilaterally Neuro: CN2-12 GI Pt is a 48yo AAF admitted for asthma exacerbation 1)Asthma exacerbation- will D/C today on Prednisone 60mg. Pt to follow up in 1 week to see if she needs longer duration of steroid taper. Due to frequent admission for asthma/COPD pulmonology was consulted. UDS normal this admission 2)HTN- not at goal. Continued on HCTZ 25mg, Hydralazine 50mg QID, Metoprolol 100mg XR, Losartan 100mg and Norvasc 10mg and Clonidine. Worsened by steroids currently 3)Hypokalemia/Hypomg- resolved 4)Steroid induced hyperglycemia- HbA1C pending. Has SSI available if needed 5)HLD- pt continued on Atorvastatin 40mg 6)Gout Discharge Medications Current Medications Albuterol/ Ipratropium (Duoneb) 3 ml 1X ONCE NEB Last administered on at 20:28; Start 10/12/18 at 21:00; Stop 10/12/18 at 21:01; Status DC Sodium Chloride 1,000 ml @ 1,000 mls/hr 1X ONCE IV Last administered on at 21:51; Start 10/12/18 at 21:00; Stop 10/12/18 at 21:59; Status DC Dexamethasone Sodium Phosphate (Decadron) 10 mg 1X ONCE IV Last administered on 10/12/18at 21:53; Start 10/12/18 at 21:00; Stop 10/12/18 at 21:01; Status DC Ondansetron HCl (Zofran) 4 mg PRN Q8HRS PRN IV NAUSEA/VOMITING 1ST CHOICE; Start 10/12/18 at 20:30; Stop 10/13/18 at 20:29; Status DC Acetaminophen (Tylenol) 650 mg PRN Q4HRS PRN PO FEVER Last administered on 10/13 17:58; Start 10/12/18 at 20:30; Stop 10/13/18 at 20:29; Status DC Albuterol/ Ipratropium (Duoneb) 3 ml RTQID NEB Last administered on 10/14/18at 07:32; Start 10/13/18 at 08:00; Stop 10/14/18 at 07:59; Status DC Insulin Human Lispro (HumaLOG) 0-5 UNITS TIDWMEALS SQ Last administered on 10/13 12:21; Start 10/13/18 at 08:00; Stop 10/13/18 at 16:51; Status DC Dextrose (Dextrose 50%-Water Syringe) 12.5 gm PRN Q15MIN PRN IV SEE COMMENTS; Start 10/12/18 at 20:30 Potassium Chloride (Klor-Con) 40 meq 1X ONCE PO Last administered on at 22:20; Start 10/12/18 at 22:30; Stop 10/12/18 at 22:31; Status DC Hydralazine HCl (Apresoline) 50 mg 1X ONCE PO Last administered on 10/12/18 23:38; Start 10/12/18 at 23:30; Stop 10/12/18 at 23:31; Status DC Losartan Potassium (Cozaar) 50 mg 1X ONCE PO Last administered on 10/12/18 23 :39; Start 10/12/18 at 23:30; Stop 10/12/18 at 23:31; Status DC Amlodipine Besylate (Norvasc) 10 mg DAILY PO Last administered on 10/15/18 08: 30; Start 10/13/18 at 09:00 Losartan Potassium (Cozaar) 100 mg DAILY PO Last administered on 10/15/18 08: 28; Start 10/13/18 at 09:00 Metoprolol Succinate (Toprol Xl) 100 mg DAILY PO Last administered on 08:30; Start 10/13/18 at 09:00 Hydralazine HCl (Apresoline) 50 mg QID PO Last administered on 10/15/18 20:51 ; Start 10/13/18 at 09:00 Magnesium Sulfate 50 ml @ 25 mls/hr 1X ONCE IV Last administered on 10/13/18 07:12; Start 10/13/18 at 07:00; Stop 10/13/18 at 08:59; Status DC Allopurinol (Zyloprim) 100 mg DAILY PO Last administered on 10/15/18 08:28; Start 10/13/18 at 12:00 Aripiprazole (Abilify) 5 mg DAILY PO Last administered on 10/15/18 08:28; Start 10/13/18 at 12:00 Atorvastatin Calcium (Lipitor) 40 mg QHS PO Last administered on 10/15/18 20: 51; Start 10/13/18 at 21:00 Colchicine (Colcrys) 0.6 mg DAILY PO Last administered on 10/15/18 08:30; Start 10/13/18 at 12:00 EZETIMIBE (Zetia) 10 mg DAILY PO Last administered on 10/15/18 08:29; Start at 12:00 Ferrous Sulfate (Feosol) 325 mg DAILY PO ; Start 10/13/18 at 12:00 Albuterol Sulfate (Ventolin Neb Soln) 2.5 mg Q4HRS NEB Last administered on 15:50; Start 10/13/18 at 12:00; Stop 10/13/18 at 16:40; Status DC Budesonide (Pulmicort) 0.5 mg RTBID NEB Last administered on 10/15/18 20:25; Start 10/13/18 at 20:00 Hydroxyzine Pamoate (Vistaril) 25 mg PRN Q6HRS PRN PO ITCHING Last administered on 10/15/18 06:19; Start 10/13/18 at 10:45 Cetirizine HCl (ZyrTEC) 10 mg DAILY PO Last administered on 10/15/18 08:29; Start 10/13/18 at 12:00 Meloxicam (Mobic) 15 mg DAILY PO Last administered on 10/15/18 08:29; Start at 11:00 Multivitamins (Thera M Plus) 1 tab DAILY PO ; Start 10/13/18 at 12:00 Potassium Chloride (Klor-Con) 20 meq DAILYWBKFT PO Last administered on 08:27; Start 10/13/18 at 12:00 Famotidine (Pepcid) 20 mg BID PO Last administered on 10/15/18at 20:51; Start at 21:00 Albuterol Sulfate (Ventolin Neb Soln) 2.5 mg PRN Q4HRS PRN NEB WHEEZING; Start 10/13/18 at 16:45 Enoxaparin Sodium (Lovenox 40mg Syringe) 40 mg Q24H SQ ; Start 10/13/18 at 17:00 ; Stop 10/13/18 at 17:03; Status DC Methylprednisolone Sodium Succinate (SOLU-Medrol 40MG VIAL) 40 mg Q8HRS IV Last administered on 10/16/18at 05:28; Start 10/13/18 at 22:00 Insulin Human Lispro (HumaLOG) 0-5 UNITS TIDWMEALS SQ Last administered on 10/15at 12:16; Start 10/13/18 at 17:00 Dextrose (Dextrose 50%-Water Syringe) 12.5 gm PRN Q15MIN PRN IV SEE COMMENTS; Start 10/13/18 at 16:45; Status UNV Enoxaparin Sodium (Lovenox 40mg Syringe) 40 mg Q24H SQ Last administered on at 20:52; Start 10/13/18 at 21:00 Cyclobenzaprine HCl (Flexeril) 10 mg 1X ONCE PO Last administered on at 20:39; Start 10/13/18 at 19:00; Stop 10/13/18 at 19:22; Status DC Albuterol/ Ipratropium (Duoneb) 3 ml RTQID NEB Last administered on 10/15/18at 20:25; Start 10/14/18 at 12:00 Albuterol Sulfate (Ventolin Neb Soln) 2.5 mg PRN Q4HRS NEB ; Start 10/14/18 at 11:45; Status Cancel Acetaminophen/ Hydrocodone Bitart (Lortab 5/325) 1 tab PRN BID PRN PO MODERATE PAIN Last administered on 10/15/18 12:13; Start 10/14/18 at 12:00 Hydrochlorothiazide (Hydrodiuril) 25 mg DAILY PO Last administered on at 08:28; Start 10/15/18 at 09:00 Promethazine HCl (Phenergan Syrup) 6.25 mg PRN Q6HRS PRN PO cough Last administered on 10/16/18at 04:52; Start 10/15/18 at 07:15 Clonidine HCl (Catapres) 0.1 mg PRN Q3HRS PRN PO HYPERTENSION, SEE COMMENTS; Start 10/16/18 at 03:15 Active Scripts Active Ventolin Hfa Inhaler (Albuterol Sulfate) 18 Gm Hfa.aer.ad 2 Puff INH Q4HRS Advair 250-50 Diskus (Fluticasone/Salmeterol) 1 Each Disk.w.dev 1 Puff IH BID Zetia (Ezetimibe) 10 Mg Tablet 10 Mg PO DAILY 90 Days Metoprolol Succinate ( Xl ) (Metoprolol Succinate) 100 Mg Tab.er.24h 100 Mg PO DAILY 90 Days Allopurinol 100 Mg Tablet 100 Mg PO DAILY 90 Days Atorvastatin Calcium 40 Mg Tablet 40 Mg PO QHS 30 Days Hydralazine Hcl 50 Mg Tablet 50 Mg PO QID 30 Days Amlodipine Besylate 10 Mg Tablet 10 Mg PO DAILY 30 Days Cozaar (Losartan Potassium) 50 Mg Tablet 100 Mg PO DAILY 30 Days Reported Symbicort 160-4.5 Mcg Inhaler (Budesonide/Formoterol Fumarate) 10.2 Gm Hfa.aer.ad 2 Puff IH BID Vistaril (Hydroxyzine Pamoate) 25 Mg Capsule 25 Mg PO PRN PRN Meloxicam 15 Mg Tablet 15 Mg PO DAILY Ranitidine Hcl 150 Mg Tablet 150 Mg PO BID Ferrous Sulfate 325 Mg Tablet 325 Mg PO DAILY Colcrys (Colchicine) 0.6 Mg Tablet 0.6 Mg PO DAILY Imitrex (Sumatriptan Succinate) 50 Mg Tablet 50 Mg PO ONCE PRN Potassium Chloride 20 Meq Tablet.er 20 Meq PO DAILY Multi-Day Vitamins (Multivitamin) 1 Each Tablet 1 Tab PO DAILY Abilify (Aripiprazole) 5 Mg Tablet 5 Mg PO DAILY PRN Loratadine 10 Mg Tablet 1 Tab PO DAILY Vital Signs Vital Signs Date Time Temp Pulse Resp B/P (MAP) Pulse Ox O2 Delivery O2 Flow Rate FiO2 10/16/18 03:00 98.2 79 18 177/103 (127) 97 Room Air 98.2 Labs Laboratory Tests Test 10/14/18 07:53 10/14/18 11:36 10/14/18 16:23 10/14/18 20:32 Glucose (Fingerstick) 118 mg/dL (70-99) 210 mg/dL (70-99) 142 mg/dL (70-99) 191 mg/dL (70-99) Test 10/15/18 04:27 10/15/18 07:44 10/15/18 09:49 10/15/18 11:19 White Blood Count 19.9 x10^3/uL (4.0-11.0) Red Blood Count 4.27 x10^6/uL (3.50-5.40) Hemoglobin 12.9 g/dL (12.0-15.5) Hematocrit 39.1 % (36.0-47.0) Mean Corpuscular Volume 92 fL (79-100) Mean Corpuscular Hemoglobin 30 pg (25-35) Mean Corpuscular Hemoglobin Concent 33 g/dL (31-37) Red Cell Distribution Width 14.8 % (11.5-14.5) Platelet Count 357 x10^3/uL (140-400) Neutrophils (%) (Auto) 93 % (31-73) Lymphocytes (%) (Auto) 4 % (24-48) Monocytes (%) (Auto) 2 % (0-9) Eosinophils (%) (Auto) 0 % (0-3) Basophils (%) (Auto) 0 % (0-3) Neutrophils # (Auto) 18.6 x10^3uL (1.8-7.7) Lymphocytes # (Auto) 0.9 x10^3/uL (1.0-4.8) Monocytes # (Auto) 0.4 x10^3/uL (0.0-1.1) Eosinophils # (Auto) 0.0 x10^3/uL (0.0-0.7) Basophils # (Auto) 0.1 x10^3/uL (0.0-0.2) Segmented Neutrophils % 89 % (35-66) Band Neutrophils % 5 % (0-9) Lymphocytes % 4 % (24-48) Monocytes % 2 % (0-10) Platelet Estimate Adequate (ADEQUATE) Large Platelets Occ Anisocytosis Slight Sodium Level 139 mmol/L (136-145) Potassium Level 4.3 mmol/L (3.5-5.1) Chloride Level 102 mmol/L (98-107) Carbon Dioxide Level 24 mmol/L (21-32) Anion Gap 13 (6-14) Blood Urea Nitrogen 19 mg/dL (7-20) Creatinine 1.1 mg/dL (0.6-1.0) Estimated GFR (Cockcroft-Gault) 64.4 Glucose Level 154 mg/dL (70-99) Hemoglobin A1c 6.1 % (4.8-5.6) Calcium Level 9.3 mg/dL (8.5-10.1) Magnesium Level 2.1 mg/dL (1.8-2.4) Glucose (Fingerstick) 179 mg/dL (70-99) 174 mg/dL (70-99) Urine Opiates Screen Pos (NEG) Urine Methadone Screen Neg (NEG) Urine Barbiturates Neg (NEG) Urine Phencyclidine Screen Neg (NEG) Urine Amphetamine/Methamphetamine Neg (NEG) Urine Benzodiazepines Screen Neg (NEG) Urine Cocaine Screen Neg (NEG) Urine Cannabinoids Screen Neg (NEG) Urine Ethyl Alcohol Neg (NEG) Test 10/15/18 16:36 10/15/18 20:39 Glucose (Fingerstick) 143 mg/dL (70-99) 188 mg/dL (70-99) Laboratory Tests Test 10/15/18 07:44 10/15/18 09:49 10/15/18 11:19 10/15/18 16:36 Glucose (Fingerstick) 179 mg/dL (70-99) 174 mg/dL (70-99) 143 mg/dL (70-99) Urine Opiates Screen Pos (NEG) Urine Methadone Screen Neg (NEG) Urine Barbiturates Neg (NEG) Urine Phencyclidine Screen Neg (NEG) Urine Amphetamine/Methamphetamine Neg (NEG) Urine Benzodiazepines Screen Neg (NEG) Urine Cocaine Screen Neg (NEG) Urine Cannabinoids Screen Neg (NEG) Urine Ethyl Alcohol Neg (NEG) Test 10/15/18 20:39 Glucose (Fingerstick) 188 mg/dL (70-99) Allergies Allergies Coded Allergies Type Severity Reaction Last Updated Verified lisinopril Allergy Intermediate COUGH 06/13/18 Yes I S O L A T I O N *CONTACT* Allergy Unknown 06/13/18 Yes Disposition/Orders: D/C to Home ALLIE MARES MD Oct 16, 2018 07:02
[2018-10-16 07:15] VITALS: BP 184/101
--- NOTE | 2018-10-16 07:28 | NUR ---
Discharge Note: CALDERON YAP Discharge instructions and discharge home medications reviewed with Patient and a copy given. All questions have been answered and understanding verbalized. The following instructions and handouts were given: COPD, K+ foods Discontinued lines and drains: peripheral IV. Patient discharged to Home or Self Care with Family Member via Ambulated
== END 2018-10-16 07:29 | disposition home or self-care (01) | DRG 202 ==
LOC: ER 19:52 → 5 NORTH 20:20
PROVIDERS: ADMIT Family Medicine; ATTEND Family Medicine
DX: J45.901 Unspecified asthma with (acute) exacerbation (principal); J44.1 Chronic obstructive pulmonary disease with (acute) exacerbation; J44.0 Chronic obstructive pulmonary disease with (acute) lower respiratory infection; E11.22 Type 2 diabetes mellitus with diabetic chronic kidney disease; J20.9 Acute bronchitis, unspecified; E83.42 Hypomagnesemia; E87.6 Hypokalemia; E78.5 Hyperlipidemia, unspecified; E11.65 Type 2 diabetes mellitus with hyperglycemia; T38.0X5A Adverse effect of glucocorticoids and synthetic analogues, initial encounter; E78.00 Pure hypercholesterolemia, unspecified; G43.909 Migraine, unspecified, not intractable, without status migrainosus; F32.9 Major depressive disorder, single episode, unspecified; F41.9 Anxiety disorder, unspecified; M10.9 Gout, unspecified; N18.9 Chronic kidney disease, unspecified; I12.9 Hypertensive chronic kidney disease with stage 1 through stage 4 chronic kidney disease, or unspecified chronic kidney disease; K57.90 Diverticulosis of intestine, part unspecified, without perforation or abscess without bleeding; K21.9 Gastro-esophageal reflux disease without esophagitis; F17.210 Nicotine dependence, cigarettes, uncomplicated; Z90.710 Acquired absence of both cervix and uterus; Z90.49 Acquired absence of other specified parts of digestive tract; Z88.8 Allergy status to other drugs, medicaments and biological substances; Z82.5 Family history of asthma and other chronic lower respiratory diseases; Z83.3 Family history of diabetes mellitus; Z82.49 Family history of ischemic heart disease and other diseases of the circulatory system; Y92.89 Other specified places as the place of occurrence of the external cause
CPT/HCPCS: 36415; 71046; 80048; 80053; 80307; 82553; 82962; 83036; 83735; 83880; 84484; 85007; 85025; 87641; 87804; 93005; 94640; 96374; J1100; J1650; J1815; J2920; J3475; J7030; J7613; J7620; J7626; Q0177; 99285-25

== ENCOUNTER 2018-11-04 13:38 | Inpatient (IN) | payer OTHER ==
[~2018-11-04] VITALS: Ht 162.6 cm; Wt 78.0 kg
[~2018-11-04 13:38] MED LIST changes: +COLC0.6T34 PO; +HYDR25CA PO; +MELO15TA23 PO; +PROM6.257 PO; +RANI150T2 PO; +SUMA50TA3 PO
[2018-11-04] MEDS ORDERED: IV NORMAL SALINE 500ML BAG 500 ML IV ONE (16:00)
[2018-11-04] MEDS ORDERED: IPRATRPIUM/ALBUTEROL 0.5/2.5MG 3 ML NEBU. NEB ONE (16:00)
--- NOTE | 2018-11-04 16:30 | PHYS DOC ---
Past Medical History Past Medical History: Asthma, COPD, Diabetes-Type II, High Cholesterol, Hypertension, Pancreatitis, Pneumonia, Other Additional Past Medical Histor: Lupus Past Surgical History: Appendectomy, Hysterectomy, Other Additional Past Surgical Histo: chest tube for pneumonia, Pancreas surgery Alcohol Use: None Drug Use: None, Cocaine Adult General Chief Complaint Chief Complaint: GENERALIZED BODY ACHES HPI HPI 48-year-old female presents to ER via POV for complaints of cough, shortness of air, generalized fatigue and generalized bodyaches. She reports sxs have been ongoing for 3 days. She reports she has had decreased appetite but is also being tx'd for thrush with Nystatin with 3-4 days left of 10 day tx. She reprots she has had intermittent nausea and some dizziness. Denies focal neuro deficits or MCCORMACK/eye pain. She denies vision change. Review of Systems Review of Systems Constitutional: Denies fever. Reports chills and generalized fatigue/body aches Eyes: Denies change in visual acuity, redness, or eye pain [] HENT: Denies nasal congestion or sore throat [] Respiratory: Reports cough/SOA Cardiovascular: No additional information not addressed in HPI [] GI: Denies abdominal pain, nausea, vomiting, bloody stools or diarrhea [] : Denies dysuria or hematuria [] Musculoskeletal: Denies back pain or joint pain [] Integument: Denies rash or skin lesions [] Neurologic: Denies headache, focal weakness or sensory changes [] Endocrine: Denies polyuria or polydipsia [] All other systems were reviewed and found to be within normal limits, except as documented in this note. Current Medications Current Medications Current Medications Medications (Trade) Dose Ordered Sig/Nona Start Time Stop Time Status Last Admin Dose Admin Albuterol/ Ipratropium (Duoneb) 3 ml 1X ONCE 11/04/18 16:00 11/04/18 16:01 DC 11/04/18 16:01 3 ML Fentanyl Citrate (Fentanyl 2ml Vial) 25 mcg 1X ONCE 11/04/18 18:00 11/04/18 18:01 DC 11/04/18 18:21 25 MCG Methylprednisolone Sodium Succinate (SOLU-Medrol 125MG VIAL) 125 mg 1X ONCE 11/04/18 18:00 11/04/18 18:01 DC 11/04/18 18:21 125 MG Sodium Chloride 500 ml @ 500 mls/hr 1X ONCE 11/04/18 16:00 11/04/18 16:59 DC 11/04/18 16:00 500 MLS/HR Allergies Allergies Allergies Coded Allergies Type Severity Reaction Last Updated Verified lisinopril Allergy Intermediate COUGH 06/13/18 Yes I S O L A T I O N *CONTACT* Allergy Unknown 06/13/18 Yes Physical Exam Physical Exam Constitutional: Well developed, well nourished, mild distress- resp. labored, non-toxic appearance. Pt is speaking in full sentences HENT: Normocephalic, atraumatic, bilateral ears normal, mucous membranes pink/dry, no pharyngeal swelling/erythema, white patches on anterior tongue/throat- uvula midline, nose normal. No difficulty swallowing during exam Eyes: Pupils equal, conjunctiva normal, no discharge. [] Neck: Normal range of motion, no tenderness, supple, no stridor/gross adenopathy Cardiovascular: Tachycardic heart rate regular rhythm, no murmur [] Lungs & Thorax: Resp. equal/labored during initial exam. Coarse lung sounds upper lung gutiérrez- diminished air movement thru all lung gutiérrez with less air movement in bases. Abdomen: Bowel sounds normal, soft, no tenderness Skin: Warm, dry, no erythema, no rash. [] Back: No tenderness, no CVA tenderness. [] Extremities: No tenderness, no cyanosis, no clubbing, ROM intact, no edema. [] Neurologic: Alert and oriented X 3, normal motor function, normal sensory function, no focal deficits noted. [] Psychologic: Affect normal, judgement normal, mood normal. [] Current Patient Data Vital Signs Vital Signs Date Time Temp Pulse Resp B/P (MAP) Pulse Ox O2 Delivery O2 Flow Rate FiO2 11/04/18 18:21 97 11/04/18 16:30 120 142/82 (102) Room Air 11/04/18 15:25 98.1 18 98.1 Lab Values Laboratory Tests Test 11/04/18 16:15 11/04/18 16:45 11/04/18 17:00 Influenza Type A Antigen Negative (NEGATIVE) Influenza Type B Antigen Negative (NEGATIVE) White Blood Count 9.8 x10^3/uL (4.0-11.0) Red Blood Count 4.82 x10^6/uL (3.50-5.40) Hemoglobin 14.7 g/dL (12.0-15.5) Hematocrit 43.4 % (36.0-47.0) Mean Corpuscular Volume 90 fL (79-100) Mean Corpuscular Hemoglobin 31 pg (25-35) Mean Corpuscular Hemoglobin Concent 34 g/dL (31-37) Red Cell Distribution Width 14.1 % (11.5-14.5) Platelet Count 281 x10^3/uL (140-400) Neutrophils (%) (Auto) 71 % (31-73) Lymphocytes (%) (Auto) 19 % (24-48) L Monocytes (%) (Auto) 7 % (0-9) Eosinophils (%) (Auto) 2 % (0-3) Basophils (%) (Auto) 0 % (0-3) Neutrophils # (Auto) 7.0 x10^3uL (1.8-7.7) Lymphocytes # (Auto) 1.9 x10^3/uL (1.0-4.8) Monocytes # (Auto) 0.7 x10^3/uL (0.0-1.1) Eosinophils # (Auto) 0.2 x10^3/uL (0.0-0.7) Basophils # (Auto) 0.0 x10^3/uL (0.0-0.2) Segmented Neutrophils % 63 % (35-66) Band Neutrophils % 7 % (0-9) Lymphocytes % 25 % (24-48) Monocytes % 4 % (0-10) Eosinophils % 1 % (0-5) Platelet Estimate Adequate (ADEQUATE) Sodium Level 136 mmol/L (136-145) Potassium Level 3.5 mmol/L (3.5-5.1) Chloride Level 97 mmol/L (98-107) L Carbon Dioxide Level 26 mmol/L (21-32) Anion Gap 13 (6-14) Blood Urea Nitrogen 8 mg/dL (7-20) Creatinine 0.9 mg/dL (0.6-1.0) Estimated GFR (Cockcroft-Gault) 81.2 BUN/Creatinine Ratio 9 (6-20) Glucose Level 138 mg/dL (70-99) H Lactic Acid Level 2.0 mmol/L (0.4-2.0) Calcium Level 9.8 mg/dL (8.5-10.1) Magnesium Level 1.6 mg/dL (1.8-2.4) L Total Bilirubin 0.4 mg/dL (0.2-1.0) Aspartate Amino Transferase (AST) 61 U/L (15-37) H Alanine Aminotransferase (ALT) 89 U/L (14-59) H Alkaline Phosphatase 73 U/L (46-116) Troponin I Quantitative < 0.017 ng/mL (0.000-0.055) GG-Caq-T-Type Natriuretic Peptide 41 pg/mL (0-124) Total Protein 7.6 g/dL (6.4-8.2) Albumin 3.4 g/dL (3.4-5.0) Albumin/Globulin Ratio 0.8 (1.0-1.7) L Urine Collection Type Unknown Urine Color Yellow Urine Clarity Clear Urine pH 7.0 Urine Specific [place] 1.015 Urine Protein Negative mg/dL (NEG-TRACE) Urine Glucose (UA) Negative mg/dL (NEG) Urine Ketones (Stick) Negative mg/dL (NEG) Urine Blood Negative (NEG) Urine Nitrite Negative (NEG) Urine Bilirubin Negative (NEG) Urine Urobilinogen Dipstick 1.0 mg/dL (0.2 mg/dL) Urine Leukocyte Esterase Negative (NEG) Urine RBC Rare /HPF (0-2) Urine WBC Rare /HPF (0-4) Urine Squamous Epithelial Cells Many /LPF Urine Bacteria Many /HPF (0-FEW) Urine Opiates Screen Neg (NEG) Urine Methadone Screen Neg (NEG) Urine Barbiturates Neg (NEG) Urine Phencyclidine Screen Neg (NEG) Urine Amphetamine/Methamphetamine Neg (NEG) Urine Benzodiazepines Screen Neg (NEG) Urine Cocaine Screen Neg (NEG) Urine Cannabinoids Screen Pos (NEG) Urine Ethyl Alcohol Neg (NEG) Laboratory Tests 11/04/18 16:45 Laboratory Tests 11/04/18 16:45 Microbiology 11/04/18 Blood Culture - Final, Complete NO GROWTH AFTER 5 DAYS 11/04/18 Urine Culture - Final, Complete 11/04/18 Urine Culture Result 1 (ELBA) - Final, Complete Laboratory Tests Test 11/04/18 16:15 11/04/18 16:45 11/04/18 17:00 Influenza Type A Antigen Negative (NEGATIVE) Influenza Type B Antigen Negative (NEGATIVE) White Blood Count 9.8 x10^3/uL (4.0-11.0) Red Blood Count 4.82 x10^6/uL (3.50-5.40) Hemoglobin 14.7 g/dL (12.0-15.5) Hematocrit 43.4 % (36.0-47.0) Mean Corpuscular Volume 90 fL (79-100) Mean Corpuscular Hemoglobin 31 pg (25-35) Mean Corpuscular Hemoglobin Concent 34 g/dL (31-37) Red Cell Distribution Width 14.1 % (11.5-14.5) Platelet Count 281 x10^3/uL (140-400) Neutrophils (%) (Auto) 71 % (31-73) Lymphocytes (%) (Auto) 19 % (24-48) L Monocytes (%) (Auto) 7 % (0-9) Eosinophils (%) (Auto) 2 % (0-3) Basophils (%) (Auto) 0 % (0-3) Neutrophils # (Auto) 7.0 x10^3uL (1.8-7.7) Lymphocytes # (Auto) 1.9 x10^3/uL (1.0-4.8) Monocytes # (Auto) 0.7 x10^3/uL (0.0-1.1) Eosinophils # (Auto) 0.2 x10^3/uL (0.0-0.7) Basophils # (Auto) 0.0 x10^3/uL (0.0-0.2) Segmented Neutrophils % 63 % (35-66) Band Neutrophils % 7 % (0-9) Lymphocytes % 25 % (24-48) Monocytes % 4 % (0-10) Eosinophils % 1 % (0-5) Platelet Estimate Adequate (ADEQUATE) Sodium Level 136 mmol/L (136-145) Potassium Level 3.5 mmol/L (3.5-5.1) Chloride Level 97 mmol/L (98-107) L Carbon Dioxide Level 26 mmol/L (21-32) Anion Gap 13 (6-14) Blood Urea Nitrogen 8 mg/dL (7-20) Creatinine 0.9 mg/dL (0.6-1.0) Estimated GFR (Cockcroft-Gault) 81.2 BUN/Creatinine Ratio 9 (6-20) Glucose Level 138 mg/dL (70-99) H Lactic Acid Level 2.0 mmol/L (0.4-2.0) Calcium Level 9.8 mg/dL (8.5-10.1) Magnesium Level 1.6 mg/dL (1.8-2.4) L Total Bilirubin 0.4 mg/dL (0.2-1.0) Aspartate Amino Transferase (AST) 61 U/L (15-37) H Alanine Aminotransferase (ALT) 89 U/L (14-59) H Alkaline Phosphatase 73 U/L (46-116) Troponin I Quantitative < 0.017 ng/mL (0.000-0.055) VS-Tjh-B-Type Natriuretic Peptide 41 pg/mL (0-124) Total Protein 7.6 g/dL (6.4-8.2) Albumin 3.4 g/dL (3.4-5.0) Albumin/Globulin Ratio 0.8 (1.0-1.7) L Urine Collection Type Unknown Urine Color Yellow Urine Clarity Clear Urine pH 7.0 Urine Specific [place] 1.015 Urine Protein Negative mg/dL (NEG-TRACE) Urine Glucose (UA) Negative mg/dL (NEG) Urine Ketones (Stick) Negative mg/dL (NEG) Urine Blood Negative (NEG) Urine Nitrite Negative (NEG) Urine Bilirubin Negative (NEG) Urine Urobilinogen Dipstick 1.0 mg/dL (0.2 mg/dL) Urine Leukocyte Esterase Negative (NEG) Urine RBC Rare /HPF (0-2) Urine WBC Rare /HPF (0-4) Urine Squamous Epithelial Cells Many /LPF Urine Bacteria Many /HPF (0-FEW) Urine Opiates Screen Neg (NEG) Urine Methadone Screen Neg (NEG) Urine Barbiturates Neg (NEG) Urine Phencyclidine Screen Neg (NEG) Urine Amphetamine/Methamphetamine Neg (NEG) Urine Benzodiazepines Screen Neg (NEG) Urine Cocaine Screen Neg (NEG) Urine Cannabinoids Screen Pos (NEG) Urine Ethyl Alcohol Neg (NEG) Laboratory Tests 11/04/18 16:45 Laboratory Tests 11/04/18 16:45 Microbiology 11/04/18 Blood Culture - Final, Complete NO GROWTH AFTER 5 DAYS 11/04/18 Urine Culture - Final, Complete 11/04/18 Urine Culture Result 1 (ELBA) - Final, Complete EKG EKG EKG obtained 11/04/18 at [address] Bear Sinus tachycardia Rate 116 No STEMI Radiology/Procedures Radiology/Procedures PROCEDURE: CHEST PA & LATERAL EXAM: PA and Lateral Views of the Chest DATE: 11/04/2018 4:01 PM INDICATION: Cough, tachycardia COMPARISON: 10/12/2018, 10/02/2018 FINDINGS/ IMPRESSION: Heart is mildly enlarged. Aorta is mildly tortuous. No lobar consolidation. No pleural effusion or definite pneumothorax. Of note the right costophrenic angle is not entirely included in the [id number]. Electronically signed by: Rodriguez Rodriguez MD (11/04/2018 7:50 PM) [facility] DICTATED and SIGNED BY: RODRIGUEZ RODRIGUEZ MD DATE: 11/04/18 1950 Course & Med Decision Making Course & Med Decision Making Pertinent Labs and Imaging studies reviewed. (See chart for details) Pt was evaluated in the ER for c/o cough/cold like sxs. Pt was given Duoneb, IV flds, Solu Medrol, and dose of Fentanyl remained tachycardic in 110s. She has hx of COPD with similar ER presentations in the past where she had tachycardic HR. Pt had some improvement in air movement through upper lung gutiérrez- remained diminished in bases w/coarse upper lung sounds. She was afebrile and WBCs NL at 9.8 with NL lactic acid at 2.0. Chest xray neg. for infiltrates. EKG with no acute ST elevation/STEMI and troponin <0.017. Pt will be admitted to her PCP for further monitoring/care for COPD exacerbation. Dragon Disclaimer Dragon Disclaimer This electronic medical record was generated, in whole or in part, using a voice recognition dictation system. Departure Departure Impression: Primary Impression: COPD exacerbation Disposition: ADMITTED INPATIENT Condition: STABLE Referrals: ALLIE MARES MD (PCP) NIMCO BROWN [employer] November 04, 2018 16:30
[2018-11-04 16:40] LABS: INFLUENZA A PATIENT NEGATIVE (NEGATIVE); INFLUENZA B PATIENT NEGATIVE (NEGATIVE)
[2018-11-04 17:07] LABS: BASO % 0 % (0-3); EOS # 0.2 x10^3/uL (0.0-0.7); EOS % 2 % (0-3); HEMATOCRIT 43.4 % (36.0-47.0); HEMOGLOBIN 14.7 g/dL (12.0-15.5); LYMPH # 1.9 x10^3/uL (1.0-4.8); LYMPH % 19 % (24-48); MEAN CORPUSCULAR HEMOGLOBIN 31 pg (25-35); MEAN CORPUSCULAR HGB CONC 34 g/dL (31-37); MEAN CORPUSCULAR VOLUME 90 fL (79-100); MONO # 0.7 x10^3/uL (0.0-1.1); MONO % 7 % (0-9); NEUT % 71 % (31-73); PLATELET COUNT 281 x10^3/uL (140-400); RED BLOOD COUNT 4.82 x10^6/uL (3.50-5.40); RED CELL DISTRIBUTION WIDTH 14.1 % (11.5-14.5); WHITE BLOOD COUNT 9.8 x10^3/uL (4.0-11.0)
[2018-11-04 17:15] LABS: CALCIUM 9.8 mg/dL (8.5-10.1); CREATININE 0.9 mg/dL (0.6-1.0); GFR 81.2; POTASSIUM 3.5 mmol/L (3.5-5.1)
[2018-11-04 17:22] LABS: ALBUMIN 3.4 g/dL (3.4-5.0); ALBUMIN/GLOBULIN RATIO 0.8 (1.0-1.7); MAGNESIUM 1.6 mg/dL (1.8-2.4); TOTAL BILIRUBIN 0.4 mg/dL (0.2-1.0); TOTAL PROTEIN 7.6 g/dL (6.4-8.2)
[2018-11-04 17:23] LABS: BILIRUBIN,URINE NEGATIVE (NEG); CLARITY,URINE CLEAR; COLOR,URINE YELLOW; NITRITE,URINE NEGATIVE (NEG); PROTEIN,URINE NEGATIVE (NEG-TRACE)
[2018-11-04 17:29] LABS: BACTERIA,URINE MANY /HPF (0-FEW); RBC,URINE RARE /HPF (0-2); SQUAMOUS EPITHELIAL CELL,UR MANY /LPF; WBC,URINE RARE /HPF (0-4)
[2018-11-04 17:42] LABS: % BANDS 7 % (0-9); % EOS 1 % (0-5); % LYMPHS 25 % (24-48); % MONOS 4 % (0-10); % SEGS 63 % (35-66)
[2018-11-04 17:43] LABS: PLT ESTIMATE ADEQUATE (ADEQUATE)
[2018-11-04] MEDS ORDERED: methylPREDNISolone SOD SUCC PF 125 MG/2 ML VIAL. IV ONE (18:00)
[2018-11-04] MEDS ORDERED: fentaNYL PF VIAL 100 MCG/2 ML VIAL IV ONE (18:00)
[2018-11-04 19:07] LABS: BARBITURATES NEG (NEG); BENZODIAZEPINES NEG (NEG); CANNABINOIDS POS (NEG); COCAINE NEG (NEG); METHADONE NEG (NEG); OPIATES NEG (NEG); PHENCYCLIDINE NEG (NEG)
[2018-11-04 19:08] LABS: AMPHETAMINE/METHAMPHETAMINE NEG (NEG)
[2018-11-04 19:47] VITALS: BP 147/89
--- NOTE | 2018-11-04 19:53 | RAD ---
EXAM: PA and Lateral Views of the Chest DATE: 11/04/2018 4:01 PM INDICATION: Cough, tachycardia COMPARISON: 10/12/2018, 10/02/2018 FINDINGS/ IMPRESSION: Heart is mildly enlarged. Aorta is mildly tortuous. No lobar consolidation. No pleural effusion or definite pneumothorax. Of note the right costophrenic angle is not entirely included in the [id number]. Electronically signed by: Rodriguez Moran MD (11/04/2018 7:50 PM) [facility]
[2018-11-04] MEDS ORDERED: ONDA4TAB12 PO (20:34)
[2018-11-04] MEDS ORDERED: METO200T46 PO (20:34)
[2018-11-04] MEDS ORDERED: LOSA1TAB19 PO (20:34)
[2018-11-04] MEDS ORDERED: SUMA50TA3 PO (20:34)
[2018-11-04] MEDS ORDERED: HYDR25CA PO (20:34)
[2018-11-04] MEDS: IPRATRPIUM/ALBUTEROL 0.5/2.5MG 3 ML NEBU. NEB SCH (20:41)
[2018-11-04] MEDS ORDERED: POTA20TA82 PO (20:58)
[2018-11-04] MEDS ORDERED: HYDR-2869 PO (20:58)
[2018-11-04] MEDS ORDERED: SUMAtriptan SUCCINATE 25 MG TABLET PO PRN (21:00)
[2018-11-04] MEDS ORDERED: NON FORMULARY ITEM (Budesonide/Formoterol Fumarate (Symbicort 160-4.5 Mcg Inhaler) 2 PUFF) IH SCH (21:00)
[2018-11-04] MEDS ORDERED: ONDANSETRON ODT 4 MG TAB.RAPDIS. PO PRN (21:00)
[2018-11-04] MEDS ORDERED: hydrOXYzine PAMOATE 25 MG CAPSULE PO PRN (21:00)
[2018-11-04] MEDS ORDERED: RANI150T2 PO (21:01)
[2018-11-04] MEDS ORDERED: ARIP5TAB19 PO (21:01)
[2018-11-04] MEDS: METOPROLOL SUCC 24HR ER 100 MG TAB.ER.24H. PO SCH (21:51)
[2018-11-04] MEDS: FAMOTIDINE 20 MG TABLET. PO SCH (21:51)
[2018-11-04] MEDS: ATORVASTATIN CALCIUM 40 MG TABLET. PO SCH (21:52)
[2018-11-04 23:50] VITALS: BP 129/85
[2018-11-05] MEDS ORDERED: ALBUTEROL SULFATE 2.5 MG/3 ML NEBU. NEB SCH
[2018-11-05] MEDS ORDERED: NON FORMULARY ITEM (Albuterol Sulfate (Ventolin Hfa Inhaler) 2 PUFF) INH SCH
[2018-11-05 03:59] VITALS: BP 114/70
[2018-11-05 04:11] LABS: CALCIUM 9.5 mg/dL (8.5-10.1); CREATININE 1.2 mg/dL (0.6-1.0); GFR 58.3; POTASSIUM 4.5 mmol/L (3.5-5.1)
[2018-11-05 04:19] LABS: BASO % 0 % (0-3); EOS % 0 % (0-3); HEMOGLOBIN 13.5 g/dL (12.0-15.5); LYMPH # 0.8 x10^3/uL (1.0-4.8); LYMPH % 10 % (24-48); MEAN CORPUSCULAR HEMOGLOBIN 30 pg (25-35); MEAN CORPUSCULAR HGB CONC 33 g/dL (31-37); MEAN CORPUSCULAR VOLUME 91 fL (79-100); MONO # 0.1 x10^3/uL (0.0-1.1); MONO % 1 % (0-9); NEUT # 6.9 x10^3uL (1.8-7.7); NEUT % 89 % (31-73); PLATELET COUNT 284 x10^3/uL (140-400); RED BLOOD COUNT 4.48 x10^6/uL (3.50-5.40); RED CELL DISTRIBUTION WIDTH 14.2 % (11.5-14.5); WHITE BLOOD COUNT 7.8 x10^3/uL (4.0-11.0)
--- NOTE | 2018-11-05 06:35 | EKG ---
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 Electronically Signed On 11-07-2018 16:02:26 CDT by Ifeanyi Robles
[2018-11-05 07:00] VITALS: BP 143/93
[2018-11-05] MEDS ORDERED: ALBUTEROL SULFATE 2.5 MG/3 ML NEBU. NEB PRN (07:00)
[2018-11-05] MEDS ORDERED: DEXTROSE 50% 25 GM / 50ML DISP.SYRIN. IV PRN (07:45)
[2018-11-05] MEDS ORDERED: POTASSIUM CHLORIDE 20 MEQ TABLET.ER. PO SCH (08:00)
[2018-11-05] MEDS: BUDESONIDE 0.5 MG/2 ML NEBU. NEB SCH ×2 (08:04→20:15)
[2018-11-05] MEDS: IPRATRPIUM/ALBUTEROL 0.5/2.5MG 3 ML NEBU. NEB SCH ×3 (08:05→15:23)
--- NOTE | 2018-11-05 08:51 | PDOC1 ---
History and Physical Date of Admission Date of Admission 11/04/18 Identification/Chief Complaint Chief Complaint Chest pain, difficulties breathing Source Source: Patient History of Present Illness History of Present Illness Pt says that she woke up yesterday morning with chest pain. States that she has never had a sensation like that before. It was on the left side of her chest and was constant. When she came to the ER she was told that she was wheezing and that the pain was due to her lungs. Pain has resolved. Pt still has not made an appointment with pulmonary. Discussed the importance of pt getting in to see them. She has had multiple admissions and clinic visits for her asthma/COPD over the past year. She is still smoking Past Medical History Cardiovascular: CHF, HTN, Hyperlipidemia Pulmonary: Asthma, COPD CENTRAL NERVOUS SYSTEM: Migraine GI: Diverticulosis, GERD Heme/Onc: Anemia NOS, Other Hepatobiliary: No pertinent hx Psych: Anxiety, Depression Rheumatologic: Gout, Other Infectious disease: No pertinent hx ENT: Allergic Rhinitis Renal/: Chronic renal insuff Endocrine: Other Dermatology: No pertinent hx Past Surgical History Past Surgical History: Appendectomy, Tubal Ligation, Hysterectomy, Other Family History Family History: Asthma, Diabetes, Hypertension Family History: Parent Social History Smoke: <1 pack per day ALCOHOL: social Drugs: Cocaine (history of) Current Medications Current Medications Current Medications Medications (Trade) Dose Ordered Sig/Nona Start Time Stop Time Status Last Admin Dose Admin Albuterol Sulfate (Ventolin Neb Soln) 2.5 mg PRN Q6HRS PRN 11/05/18 07:00 Albuterol/ Ipratropium (Duoneb) 3 ml RTQID 11/04/18 20:00 11/05/18 19:59 11/05/18 08:05 3 ML Allopurinol (Zyloprim) 100 mg DAILY 11/05/18 09:00 Amlodipine Besylate (Norvasc) 10 mg DAILY 11/05/18 09:00 Aripiprazole (Abilify) 5 mg DAILY 11/05/18 09:00 Atorvastatin Calcium (Lipitor) 40 mg QHS 11/04/18 21:45 11/04/18 21:52 40 MG Budesonide (Pulmicort) 0.5 mg RTBID 11/05/18 08:00 11/05/18 08:04 0.5 MG Cetirizine HCl (ZyrTEC) 10 mg DAILY 11/05/18 09:00 Colchicine (Colcrys) 0.6 mg DAILY 11/05/18 09:00 Dextrose (Dextrose 50%-Water Syringe) 12.5 gm PRN Q15MIN PRN 11/05/18 07:45 EZETIMIBE (Zetia) 10 mg DAILY 11/05/18 09:00 Famotidine (Pepcid) 20 mg BID 11/04/18 21:45 11/04/18 21:51 20 MG Fentanyl Citrate (Fentanyl 2ml Vial) 25 mcg 1X ONCE 11/04/18 18:00 11/04/18 18:01 DC 11/04/18 18:21 25 MCG Ferrous Sulfate (Feosol) 325 mg DAILY 11/05/18 09:00 Fluticasone Propionate (Flonase) 2 spray DAILY 11/05/18 09:00 Hydralazine HCl (Apresoline) 50 mg DAILY 11/05/18 09:00 Hydrochlorothiazide (Microzide) 12.5 mg DAILY 11/05/18 09:00 Hydroxyzine Pamoate (Vistaril) 25 mg PRN DAILY PRN 11/04/18 21:00 Insulin Human Lispro (HumaLOG) 0-5 UNITS TIDWMEALS 11/05/18 08:00 Losartan Potassium (Cozaar) 50 mg DAILY 11/05/18 09:00 Meloxicam (Mobic) 15 mg DAILY 11/05/18 09:00 Methylprednisolone Sodium Succinate (SOLU-Medrol 125MG VIAL) 125 mg Q8HRS 11/05/18 09:00 Metoprolol Succinate (Toprol Xl) 200 mg HS 11/04/18 21:45 11/04/18 21:51 200 MG Multivitamins (Thera M Plus) 1 tab DAILY 11/05/18 09:00 Non-Formulary Medication (Albuterol Sulfate (Ventolin Hfa Inhaler)) 2 puff Q4HRS 11/05/18 00:00 UNV Non-Formulary Medication (Budesonide/ Formoterol Fumarate (Symbicort 160-4.5 Mcg Inhaler)) 2 puff BID 11/04/18 21:00 UNV Non-Formulary Medication (Losartan/ Hydrochlorothiazide (Losartan-Hctz 50-12.5 Mg Tab)) 1 tab DAILY 11/05/18 09:00 UNV Ondansetron HCl (Zofran Odt) 4 mg PRN Q4HRS PRN 11/04/18 21:00 Potassium Chloride (Klor-Con) 20 meq [id number] 11/05/18 08:00 Sodium Chloride 500 ml @ 500 mls/hr 1X ONCE 11/04/18 16:00 11/04/18 16:59 DC 11/04/18 16:00 500 MLS/HR Sumatriptan Succinate (Imitrex) 50 mg PRN DAILY PRN 11/04/18 21:00 Allergies Allergies Allergies Coded Allergies Type Severity Reaction Last Updated Verified lisinopril Allergy Intermediate COUGH 06/13/18 Yes I S O L A T I O N *CONTACT* Allergy Unknown 06/13/18 Yes ROS Review of System CONSTITUTIONAL: No fever or chills EYES: No recent changes SKIN: No rash or itching CARDIOVASCULAR: No syncope, palpitations, or edema, +chest pain RESPIRATORY: +cough, SOA GASTROINTESTINAL: No nausea, vomiting or abdominal pain NEUROLOGICAL: No headaches or weakness ENDOCRINE: No cold or heat intolerance GENITOURINARY: No urgency or frequency of urination MUSCULOSKELETAL: No back pain or joint pain LYMPHATICS: No enlarged lymph nodes PSYCHIATRIC: No anxiety or depression Physical Exam Physical Exam GEN: NAD, AOx3 HEENT: MMM, EOMI, no scleral icterus/injection Cardiac: RRR, no M/R/G Lungs: CTAB, pt unable to take in deep breaths Abd: soft, nondistended, NTTP Ext: no erythema/edema LE bilaterally Neuro: CN2-12 GI] Skin: no rashes/lesions Vitals Vitals Vital Signs Date Time Temp Pulse Resp B/P (MAP) Pulse Ox O2 Delivery O2 Flow Rate FiO2 11/05/18 08:05 97 Room Air 11/05/18 07:00 98.1 82 18 143/93 (110) 98.1 Labs Labs Laboratory Tests Test 11/04/18 16:15 11/04/18 16:45 11/04/18 17:00 11/04/18 21:02 Influenza Type A Antigen Negative (NEGATIVE) Influenza Type B Antigen Negative (NEGATIVE) White Blood Count 9.8 x10^3/uL (4.0-11.0) Red Blood Count 4.82 x10^6/uL (3.50-5.40) Hemoglobin 14.7 g/dL (12.0-15.5) Hematocrit 43.4 % (36.0-47.0) Mean Corpuscular Volume 90 fL (79-100) Mean Corpuscular Hemoglobin 31 pg (25-35) Mean Corpuscular Hemoglobin Concent 34 g/dL (31-37) Red Cell Distribution Width 14.1 % (11.5-14.5) Platelet Count 281 x10^3/uL (140-400) Neutrophils (%) (Auto) 71 % (31-73) Lymphocytes (%) (Auto) 19 % (24-48) Monocytes (%) (Auto) 7 % (0-9) Eosinophils (%) (Auto) 2 % (0-3) Basophils (%) (Auto) 0 % (0-3) Neutrophils # (Auto) 7.0 x10^3uL (1.8-7.7) Lymphocytes # (Auto) 1.9 x10^3/uL (1.0-4.8) Monocytes # (Auto) 0.7 x10^3/uL (0.0-1.1) Eosinophils # (Auto) 0.2 x10^3/uL (0.0-0.7) Basophils # (Auto) 0.0 x10^3/uL (0.0-0.2) Segmented Neutrophils % 63 % (35-66) Band Neutrophils % 7 % (0-9) Lymphocytes % 25 % (24-48) Monocytes % 4 % (0-10) Eosinophils % 1 % (0-5) Platelet Estimate Adequate (ADEQUATE) Sodium Level 136 mmol/L (136-145) Potassium Level 3.5 mmol/L (3.5-5.1) Chloride Level 97 mmol/L (98-107) Carbon Dioxide Level 26 mmol/L (21-32) Anion Gap 13 (6-14) Blood Urea Nitrogen 8 mg/dL (7-20) Creatinine 0.9 mg/dL (0.6-1.0) Estimated GFR (Cockcroft-Gault) 81.2 BUN/Creatinine Ratio 9 (6-20) Glucose Level 138 mg/dL (70-99) Lactic Acid Level 2.0 mmol/L (0.4-2.0) Calcium Level 9.8 mg/dL (8.5-10.1) Magnesium Level 1.6 mg/dL (1.8-2.4) Total Bilirubin 0.4 mg/dL (0.2-1.0) Aspartate Amino Transf (AST/SGOT) 61 U/L (15-37) Alanine Aminotransferase (ALT/SGPT) 89 U/L (14-59) Alkaline Phosphatase 73 U/L (46-116) Troponin I Quantitative < 0.017 ng/mL (0.000-0.055) KD-Wkr-U-Type Natriuretic Peptide 41 pg/mL (0-124) Total Protein 7.6 g/dL (6.4-8.2) Albumin 3.4 g/dL (3.4-5.0) Albumin/Globulin Ratio 0.8 (1.0-1.7) Urine Collection Type Unknown Urine Color Yellow Urine Clarity Clear Urine pH 7.0 Urine Specific [place] 1.015 Urine Protein Negative mg/dL (NEG-TRACE) Urine Glucose (UA) Negative mg/dL (NEG) Urine Ketones (Stick) Negative mg/dL (NEG) Urine Blood Negative (NEG) Urine Nitrite Negative (NEG) Urine Bilirubin Negative (NEG) Urine Urobilinogen Dipstick 1.0 mg/dL (0.2 mg/dL) Urine Leukocyte Esterase Negative (NEG) Urine RBC Rare /HPF (0-2) Urine WBC Rare /HPF (0-4) Urine Squamous Epithelial Cells Many /LPF Urine Bacteria Many /HPF (0-FEW) Urine Opiates Screen Neg (NEG) Urine Methadone Screen Neg (NEG) Urine Barbiturates Neg (NEG) Urine Phencyclidine Screen Neg (NEG) Urine Amphetamine/Methamphetamine Neg (NEG) Urine Benzodiazepines Screen Neg (NEG) Urine Cocaine Screen Neg (NEG) Urine Cannabinoids Screen Pos (NEG) Urine Ethyl Alcohol Neg (NEG) Glucose (Fingerstick) 190 mg/dL (70-99) Test 11/05/18 03:30 11/05/18 07:01 White Blood Count 7.8 x10^3/uL (4.0-11.0) Red Blood Count 4.48 x10^6/uL (3.50-5.40) Hemoglobin 13.5 g/dL (12.0-15.5) Hematocrit 41.0 % (36.0-47.0) Mean Corpuscular Volume 91 fL (79-100) Mean Corpuscular Hemoglobin 30 pg (25-35) Mean Corpuscular Hemoglobin Concent 33 g/dL (31-37) Red Cell Distribution Width 14.2 % (11.5-14.5) Platelet Count 284 x10^3/uL (140-400) Neutrophils (%) (Auto) 89 % (31-73) Lymphocytes (%) (Auto) 10 % (24-48) Monocytes (%) (Auto) 1 % (0-9) Eosinophils (%) (Auto) 0 % (0-3) Basophils (%) (Auto) 0 % (0-3) Neutrophils # (Auto) 6.9 x10^3uL (1.8-7.7) Lymphocytes # (Auto) 0.8 x10^3/uL (1.0-4.8) Monocytes # (Auto) 0.1 x10^3/uL (0.0-1.1) Eosinophils # (Auto) 0.0 x10^3/uL (0.0-0.7) Basophils # (Auto) 0.0 x10^3/uL (0.0-0.2) Sodium Level 132 mmol/L (136-145) Potassium Level 4.5 mmol/L (3.5-5.1) Chloride Level 95 mmol/L (98-107) Carbon Dioxide Level 24 mmol/L (21-32) Anion Gap 13 (6-14) Blood Urea Nitrogen 11 mg/dL (7-20) Creatinine 1.2 mg/dL (0.6-1.0) Estimated GFR (Cockcroft-Gault) 58.3 Glucose Level 293 mg/dL (70-99) Calcium Level 9.5 mg/dL (8.5-10.1) Glucose (Fingerstick) 281 mg/dL (70-99) Laboratory Tests Test 11/04/18 16:15 11/04/18 16:45 11/04/18 17:00 11/04/18 21:02 Influenza Type A Antigen Negative (NEGATIVE) Influenza Type B Antigen Negative (NEGATIVE) White Blood Count 9.8 x10^3/uL (4.0-11.0) Red Blood Count 4.82 x10^6/uL (3.50-5.40) Hemoglobin 14.7 g/dL (12.0-15.5) Hematocrit 43.4 % (36.0-47.0) Mean Corpuscular Volume 90 fL (79-100) Mean Corpuscular Hemoglobin 31 pg (25-35) Mean Corpuscular Hemoglobin Concent 34 g/dL (31-37) Red Cell Distribution Width 14.1 % (11.5-14.5) Platelet Count 281 x10^3/uL (140-400) Neutrophils (%) (Auto) 71 % (31-73) Lymphocytes (%) (Auto) 19 % (24-48) Monocytes (%) (Auto) 7 % (0-9) Eosinophils (%) (Auto) 2 % (0-3) Basophils (%) (Auto) 0 % (0-3) Neutrophils # (Auto) 7.0 x10^3uL (1.8-7.7) Lymphocytes # (Auto) 1.9 x10^3/uL (1.0-4.8) Monocytes # (Auto) 0.7 x10^3/uL (0.0-1.1) Eosinophils # (Auto) 0.2 x10^3/uL (0.0-0.7) Basophils # (Auto) 0.0 x10^3/uL (0.0-0.2) Segmented Neutrophils % 63 % (35-66) Band Neutrophils % 7 % (0-9) Lymphocytes % 25 % (24-48) Monocytes % 4 % (0-10) Eosinophils % 1 % (0-5) Platelet Estimate Adequate (ADEQUATE) Sodium Level 136 mmol/L (136-145) Potassium Level 3.5 mmol/L (3.5-5.1) Chloride Level 97 mmol/L (98-107) Carbon Dioxide Level 26 mmol/L (21-32) Anion Gap 13 (6-14) Blood Urea Nitrogen 8 mg/dL (7-20) Creatinine 0.9 mg/dL (0.6-1.0) Estimated GFR (Cockcroft-Gault) 81.2 BUN/Creatinine Ratio 9 (6-20) Glucose Level 138 mg/dL (70-99) Lactic Acid Level 2.0 mmol/L (0.4-2.0) Calcium Level 9.8 mg/dL (8.5-10.1) Magnesium Level 1.6 mg/dL (1.8-2.4) Total Bilirubin 0.4 mg/dL (0.2-1.0) Aspartate Amino Transf (AST/SGOT) 61 U/L (15-37) Alanine Aminotransferase (ALT/SGPT) 89 U/L (14-59) Alkaline Phosphatase 73 U/L (46-116) Troponin I Quantitative < 0.017 ng/mL (0.000-0.055) VS-Acf-R-Type Natriuretic Peptide 41 pg/mL (0-124) Total Protein 7.6 g/dL (6.4-8.2) Albumin 3.4 g/dL (3.4-5.0) Albumin/Globulin Ratio 0.8 (1.0-1.7) Urine Collection Type Unknown Urine Color Yellow Urine Clarity Clear Urine pH 7.0 Urine Specific [place] 1.015 Urine Protein Negative mg/dL (NEG-TRACE) Urine Glucose (UA) Negative mg/dL (NEG) Urine Ketones (Stick) Negative mg/dL (NEG) Urine Blood Negative (NEG) Urine Nitrite Negative (NEG) Urine Bilirubin Negative (NEG) Urine Urobilinogen Dipstick 1.0 mg/dL (0.2 mg/dL) Urine Leukocyte Esterase Negative (NEG) Urine RBC Rare /HPF (0-2) Urine WBC Rare /HPF (0-4) Urine Squamous Epithelial Cells Many /LPF Urine Bacteria Many /HPF (0-FEW) Urine Opiates Screen Neg (NEG) Urine Methadone Screen Neg (NEG) Urine Barbiturates Neg (NEG) Urine Phencyclidine Screen Neg (NEG) Urine Amphetamine/Methamphetamine Neg (NEG) Urine Benzodiazepines Screen Neg (NEG) Urine Cocaine Screen Neg (NEG) Urine Cannabinoids Screen Pos (NEG) Urine Ethyl Alcohol Neg (NEG) Glucose (Fingerstick) 190 mg/dL (70-99) Test 11/05/18 03:30 11/05/18 07:01 White Blood Count 7.8 x10^3/uL (4.0-11.0) Red Blood Count 4.48 x10^6/uL (3.50-5.40) Hemoglobin 13.5 g/dL (12.0-15.5) Hematocrit 41.0 % (36.0-47.0) Mean Corpuscular Volume 91 fL (79-100) Mean Corpuscular Hemoglobin 30 pg (25-35) Mean Corpuscular Hemoglobin Concent 33 g/dL (31-37) Red Cell Distribution Width 14.2 % (11.5-14.5) Platelet Count 284 x10^3/uL (140-400) Neutrophils (%) (Auto) 89 % (31-73) Lymphocytes (%) (Auto) 10 % (24-48) Monocytes (%) (Auto) 1 % (0-9) Eosinophils (%) (Auto) 0 % (0-3) Basophils (%) (Auto) 0 % (0-3) Neutrophils # (Auto) 6.9 x10^3uL (1.8-7.7) Lymphocytes # (Auto) 0.8 x10^3/uL (1.0-4.8) Monocytes # (Auto) 0.1 x10^3/uL (0.0-1.1) Eosinophils # (Auto) 0.0 x10^3/uL (0.0-0.7) Basophils # (Auto) 0.0 x10^3/uL (0.0-0.2) Sodium Level 132 mmol/L (136-145) Potassium Level 4.5 mmol/L (3.5-5.1) Chloride Level 95 mmol/L (98-107) Carbon Dioxide Level 24 mmol/L (21-32) Anion Gap 13 (6-14) Blood Urea Nitrogen 11 mg/dL (7-20) Creatinine 1.2 mg/dL (0.6-1.0) Estimated GFR (Cockcroft-Gault) 58.3 Glucose Level 293 mg/dL (70-99) Calcium Level 9.5 mg/dL (8.5-10.1) Glucose (Fingerstick) 281 mg/dL (70-99) VTE Prophylaxis Ordered VTE Prophylaxis Devices: No VTE Pharmacological Prophylaxi: No Assessment/Plan Assessment/Plan Pt is a 48yo AAF admitted for asthma exacerbation 1)Asthma exacerbation- pt improving. Will continue IV steroids, budesonide, duonebs and albuterol. Encouraged smoking cessation. Pt to make apt with pulmonary on discharge. 2)Steroid induced hyperglycemia/Prediabetes- recent HbA1C was 6.1. Has SSI available 3)HTN- BP currently at goal. Pt currently continued on Losartan 50mg and HCTZ 12.5mg qday (normally on BID), Hydralazine 50mg qday (normally QID), Metoprolol ER 200mg and Amlodipine 10mg. CTM 4)Depression- pt continued on Ariprazole 5)HLD- pt continued on Atorvastatin 6)CKD- Stage 2. Stable 7)Hyponatremia- CTM 8)Hypokalemia- resolved 9)CHF- diastolic, compensated ALLIE MARES MD November 05, 2018 08:51
[2018-11-05] MEDS ORDERED: FLUTICASONE 50MCG/NASAL SPRAY 16GM BOTTLE. NS SCH (09:00)
[2018-11-05] MEDS ORDERED: NON FORMULARY ITEM (Losartan/Hydrochlorothiazide (Losartan-Hctz 50-12.5 Mg Tab) 1 TAB) PO SCH (09:00)
[2018-11-05] MEDS ORDERED: ALLOPURINOL 100 MG TABLET. PO SCH (09:00)
[2018-11-05] MEDS ORDERED: CETIRIZINE HCL 10 MG TABLET. PO SCH (09:00)
[2018-11-05] MEDS ORDERED: hydroCHLOROthiazide 12.5 MG CAPSULE PO SCH (09:00)
[2018-11-05] MEDS ORDERED: amLODIPine BESYLATE 10 MG TABLET PO SCH (09:00)
[2018-11-05] MEDS ORDERED: MELOXICAM 7.5 MG TABLET PO SCH (09:00)
[2018-11-05] MEDS ORDERED: EZETIMIBE 10 MG TABLET. PO SCH (09:00)
[2018-11-05] MEDS ORDERED: MULTIVITAMIN with MINERAL TABLET. PO SCH (09:00)
[2018-11-05] MEDS ORDERED: ARIPiprazole 5 MG TABLET PO SCH (09:00)
[2018-11-05] MEDS ORDERED: COLCHICINE 0.6 MG TABLET PO SCH (09:00)
[2018-11-05] MEDS ORDERED: LOSARTAN POTASSIUM 50 MG TABLET. PO SCH (09:00)
[2018-11-05] MEDS ORDERED: FERROUS SULFATE 325 MG TABLET. PO SCH (09:00)
[2018-11-05] MEDS: methylPREDNISolone SOD SUCC PF 125 MG/2 ML VIAL. IV SCH ×4 (09:07→23:18)
[2018-11-05] MEDS: FAMOTIDINE 20 MG TABLET. PO SCH ×2 (09:10→20:38)
[2018-11-05] MEDS: INSULIN LISPRO 300 UNITS/3 ML INSULN.PEN. SQ SCH ×3 (09:29→18:14)
[2018-11-05 11:00] VITALS: BP 144/84
--- NOTE | 2018-11-05 11:08 | NUR ---
IP: Pt has a hx of mrsa since 2014 with most current + mrsa screen on 10/13/18. Pt to be in contact precautions until there are 2 negative screens 7 days apart.
--- NOTE | 2018-11-05 14:30 | NUR ---
SW following pt for anticipated dc needs. Chart reviewed. Pt lives at home with family. No SW needs noted at this time.
[2018-11-05 15:00] VITALS: BP 125/86
[2018-11-05 19:25] VITALS: BP 120/73
[2018-11-05] MEDS: ALBUTEROL SULFATE 2.5 MG/3 ML NEBU. NEB SCH (20:14)
[2018-11-05] MEDS: METOPROLOL SUCC 24HR ER 100 MG TAB.ER.24H. PO SCH (20:38)
[2018-11-05] MEDS: ATORVASTATIN CALCIUM 40 MG TABLET. PO SCH (20:38)
[2018-11-05] MEDS ORDERED: ACETAMINOPHEN 500 MG TABLET PO PRN (23:00)
[2018-11-05] MEDS ORDERED: LOPERAMIDE 2 MG CAPSULE PO ONE (23:15)
[2018-11-05 23:22] VITALS: BP 159/77
[2018-11-06 03:32] VITALS: BP 138/78
[2018-11-06 04:17] LABS: CALCIUM 9.3 mg/dL (8.5-10.1); CREATININE 1.2 mg/dL (0.6-1.0); GFR 58.3; POTASSIUM 3.8 mmol/L (3.5-5.1)
[2018-11-06] MEDS: methylPREDNISolone SOD SUCC PF 125 MG/2 ML VIAL. IV SCH (06:06)
--- NOTE | 2018-11-06 07:13 | PDOC3 ---
Discharge Summary Date of Admission: November 05, 2018 Date of Discharge: November 06, 2018 Follow-Up: Other ([address] Blair, [address] Biswas) Admitting Diagnosis comment: Asthma Exacerbation FINAL DIAGNOSIS Asthma exacerbation, Steroid induced hyperglycemia/Prediabetes, HTN, Depression, HLD, CKD-Stage 2, Hyponatremia-improving, Hypokalemia- resolved, CHF- diastolic compensated Brief Hospital Course DISCHARGE PHYSICAL EXAM GEN: NAD, AOx3 HEENT: MMM, EOMI, no scleral icterus/injection Cardiac: RRR, no M/R/G Lungs: CTAB, regular breathing rate and effort Abd: soft, nondistended, NTTP Ext: no erythema/edema LE bilaterally Neuro: CN2-12 GI] Skin: no rashes/lesions Pt is a 48yo AAF admitted for asthma exacerbation 1)Asthma exacerbation- pt improving. Able to take better breaths in. Will D/C on Prednisone taper. Pt to f/u with Dr. Blevins within the next week. DC'd on Sym bicort, Albuterol inhaler. Encouraged smoking cessation. 2)Steroid induced hyperglycemia/Prediabetes- recent HbA1C was 6.1. Had SSI available during hospitalization. Stressed the importance of getting better control of her lung disease to limit amount of steroids, thus providing better control of sugars 3)HTN- BP currently at goal. Pt currently continued on Losartan 50mg and HCTZ 12.5mg qday (normally on BID), Hydralazine 50mg qday (normally QID), Metoprolol ER 200mg and Amlodipine 10mg. Pt planning on getting BP cuff soon 4)Depression- pt continued on Ariprazole 5)HLD- pt continued on Atorvastatin 6)CKD- Stage 2. Stable 7)Hyponatremia- improving 8)Hypokalemia- resolved 9)CHF- diastolic, compensated Discharge Medications Current Medications Albuterol/ Ipratropium (Duoneb) 3 ml 1X ONCE NEB Last administered on 11/04/18at 16:01; Start 11/04/18 at 16:00; Stop 11/04/18 at 16:01; Status DC Sodium Chloride 500 ml @ 500 mls/hr 1X ONCE IV Last administered on 11/04/18at 16:00; Start 11/04/18 at 16:00; Stop 11/04/18 at 16:59; Status DC Methylprednisolone Sodium Succinate (SOLU-Medrol 125MG VIAL) 125 mg 1X ONCE IV Last administered on 11/04/18 18:21; Start 11/04/18 at 18:00; Stop 11/04/18 at 18:01; Status DC Fentanyl Citrate (Fentanyl 2ml Vial) 25 mcg 1X ONCE IV Last administered on 11/04/18 18:21; Start 11/04/18 at 18:00; Stop 11/04/18 at 18:01; Status DC Albuterol/ Ipratropium (Duoneb) 3 ml RTQID NEB Last administered on 11/05/18 15:23; Start 11/04/18 at 20:00; Stop 11/05/18 at 18:13; Status DC Allopurinol (Zyloprim) 100 mg DAILY PO Last administered on 11/05/18 09:08; Start 11/05/18 at 09:00 Amlodipine Besylate (Norvasc) 10 mg DAILY PO Last administered on 11/05/18 11:31; Start 11/05/18 at 09:00 Aripiprazole (Abilify) 5 mg DAILY PO Last administered on 11/05/18 09:11; Start 11/05/18 at 09:00 Atorvastatin Calcium (Lipitor) 40 mg QHS PO Last administered on 11/05/18 20:38; Start 11/04/18 at 21:45 Colchicine (Colcrys) 0.6 mg DAILY PO Last administered on 11/05/18 09:08; Start 11/05/18 at 09:00 EZETIMIBE (Zetia) 10 mg DAILY PO Last administered on 11/05/18 09:08; Start 11/05/18 at 09:00 Ferrous Sulfate (Feosol) 325 mg DAILY PO Last administered on 11/05/18 09:10; Start 11/05/18 at 09:00 Ondansetron HCl (Zofran Odt) 4 mg PRN Q4HRS PRN PO NAUSEA; Start 11/04/18 at 21:00 Non-Formulary Medication (Albuterol Sulfate (Ventolin Hfa Inhaler)) 2 puff Q4HRS INH ; Start 11/05/18 at 00:00; Status UNV Non-Formulary Medication (Budesonide/ Formoterol Fumarate (Symbicort 160-4.5 Mcg Inhaler)) 2 puff BID IH ; Start 11/04/18 at 21:00; Status UNV Hydralazine HCl (Apresoline) 50 mg DAILY PO Last administered on 11/05/18 11:30; Start 11/05/18 at 09:00 Hydroxyzine Pamoate (Vistaril) 25 mg PRN DAILY PRN PO cramping ; Start 11/04/18 at 21:00 Non-Formulary Medication (Losartan/ Hydrochlorothiazide (Losartan-Hctz 50-12.5 Mg Tab)) 1 tab DAILY PO ; Start 11/05/18 at 09:00; Status UNV Meloxicam (Mobic) 15 mg DAILY PO Last administered on 11/05/18 09:09; Start 11/05/18 at 09:00 Metoprolol Succinate (Toprol Xl) 200 mg HS PO Last administered on 11/05/18 20:38; Start 11/04/18 at 21:45 Multivitamins (Thera M Plus) 1 tab DAILY PO Last administered on 11/05/18 09:10; Start 11/05/18 at 09:00 Potassium Chloride (Klor-Con) 20 meq DAILYWBKFT PO Last administered on 11/05/18 09:07; Start 11/05/18 at 08:00 Famotidine (Pepcid) 20 mg BID PO Last administered on 11/05/18 20:38; Start 11/04/18 at 21:45 Sumatriptan Succinate (Imitrex) 50 mg PRN DAILY PRN PO MIGRAINE HEADACHE(ONCE DAILY); Start 11/04/18 at 21:00 Losartan Potassium (Cozaar) 50 mg DAILY PO Last administered on 11/05/18 09:10; Start 11/05/18 at 09:00 Hydrochlorothiazide (Microzide) 12.5 mg DAILY PO Last administered on 11/05/18 09:09; Start 11/05/18 at 09:00 Albuterol Sulfate (Ventolin Neb Soln) 2.5 mg Q4HRS NEB ; Start 11/05/18 at 00:00; Stop 11/05/18 at 00:00; Status DC Budesonide (Pulmicort) 0.5 mg RTBID NEB Last administered on 5/6/19at 20:15; Start 11/05/18 at 08:00 Albuterol Sulfate (Ventolin Neb Soln) 2.5 mg PRN Q6HRS PRN NEB SHORTNESS OF BREATH; Start 11/05/18 at 07:00 Fluticasone Propionate (Flonase) 2 spray DAILY NS ; Start 11/05/18 at 09:00 Cetirizine HCl (ZyrTEC) 10 mg DAILY PO Last administered on 11/05/18at 09:10; Start 11/05/18 at 09:00 Insulin Human Lispro (HumaLOG) 0-5 UNITS TIDWMEALS SQ Last administered on 11/05/18at 18:14; Start 11/05/18 at 08:00 Dextrose (Dextrose 50%-Water Syringe) 12.5 gm PRN Q15MIN PRN IV SEE COMMENTS; Start 11/05/18 at 07:45 Methylprednisolone Sodium Succinate (SOLU-Medrol 125MG VIAL) 125 mg Q8HRS IV Last administered on 11/06/18at 06:06; Start 11/05/18 at 09:00 Albuterol Sulfate (Ventolin Neb Soln) 2.5 mg RTQID NEB Last administered on 11/05/18at 20:14; Start 11/05/18 at 20:00 Acetaminophen (Tylenol) 1,000 mg PRN QID PRN PO MILD PAIN Last administered on 11/05/18at 23:18; Start 11/05/18 at 23:00 Loperamide HCl (Imodium) 2 mg 1X ONCE PO Last administered on 11/05/18at 23:18; Start 11/05/18 at 23:15; Stop 11/05/18 at 23:16; Status DC Active Scripts Active Ventolin Hfa Inhaler (Albuterol Sulfate) 18 Gm Hfa.aer.ad 2 Puff INH Q4HRS Zetia (Ezetimibe) 10 Mg Tablet 10 Mg PO DAILY 90 Days Allopurinol 100 Mg Tablet 100 Mg PO DAILY 90 Days Atorvastatin Calcium 40 Mg Tablet 40 Mg PO QHS 30 Days Amlodipine Besylate 10 Mg Tablet 10 Mg PO DAILY 30 Days Reported Aripiprazole 5 Mg Tablet 5 Mg PO DAILY Ranitidine Hcl 150 Mg Tablet 150 Mg PO BID Potassium Chloride 20 Meq Tablet.er 20 Meq PO DAILY Hydralazine Hcl 50 Mg Tablet 1 Tab PO DAILY Ondansetron Odt (Ondansetron) 4 Mg Tab.rapdis 1 Tab PO PRN Q4HRS PRN Metoprolol Succinate ( Xl ) (Metoprolol Succinate) 200 Mg Tab.er.24h 1 Tab PO HS Losartan-Hctz 50-12.5 Mg Tab (Losartan/Hydrochlorothiazide) 1 Each Tablet 1 Tab PO DAILY Symbicort 160-4.5 Mcg Inhaler (Budesonide/Formoterol Fumarate) 10.2 Gm Hfa.aer.a d 2 Puff IH BID Vistaril (Hydroxyzine Pamoate) 25 Mg Capsule 25 Mg PO PRN PRN Meloxicam 15 Mg Tablet 15 Mg PO DAILY Ferrous Sulfate 325 Mg Tablet 325 Mg PO DAILY Colcrys (Colchicine) 0.6 Mg Tablet 0.6 Mg PO DAILY Imitrex (Sumatriptan Succinate) 50 Mg Tablet 50 Mg PO ONCE PRN Multi-Day Vitamins (Multivitamin) 1 Each Tablet 1 Tab PO DAILY Vital Signs Vital Signs Date Time Temp Pulse Resp B/P (MAP) Pulse Ox O2 Delivery O2 Flow Rate FiO2 11/06/18 03:32 98.1 79 20 138/78 (98) 97 Room Air 98.1 Labs Laboratory Tests Test 11/04/18 16:15 11/04/18 16:45 11/04/18 17:00 11/04/18 21:02 Influenza Type A Antigen Negative (NEGATIVE) Influenza Type B Antigen Negative (NEGATIVE) White Blood Count 9.8 x10^3/uL (4.0-11.0) Red Blood Count 4.82 x10^6/uL (3.50-5.40) Hemoglobin 14.7 g/dL (12.0-15.5) Hematocrit 43.4 % (36.0-47.0) Mean Corpuscular Volume 90 fL (79-100) Mean Corpuscular Hemoglobin 31 pg (25-35) Mean Corpuscular Hemoglobin Concent 34 g/dL (31-37) Red Cell Distribution Width 14.1 % (11.5-14.5) Platelet Count 281 x10^3/uL (140-400) Neutrophils (%) (Auto) 71 % (31-73) Lymphocytes (%) (Auto) 19 % (24-48) Monocytes (%) (Auto) 7 % (0-9) Eosinophils (%) (Auto) 2 % (0-3) Basophils (%) (Auto) 0 % (0-3) Neutrophils # (Auto) 7.0 x10^3uL (1.8-7.7) Lymphocytes # (Auto) 1.9 x10^3/uL (1.0-4.8) Monocytes # (Auto) 0.7 x10^3/uL (0.0-1.1) Eosinophils # (Auto) 0.2 x10^3/uL (0.0-0.7) Basophils # (Auto) 0.0 x10^3/uL (0.0-0.2) Segmented Neutrophils % 63 % (35-66) Band Neutrophils % 7 % (0-9) Lymphocytes % 25 % (24-48) Monocytes % 4 % (0-10) Eosinophils % 1 % (0-5) Platelet Estimate Adequate (ADEQUATE) Sodium Level 136 mmol/L (136-145) Potassium Level 3.5 mmol/L (3.5-5.1) Chloride Level 97 mmol/L (98-107) Carbon Dioxide Level 26 mmol/L (21-32) Anion Gap 13 (6-14) Blood Urea Nitrogen 8 mg/dL (7-20) Creatinine 0.9 mg/dL (0.6-1.0) Estimated GFR (Cockcroft-Gault) 81.2 BUN/Creatinine Ratio 9 (6-20) Glucose Level 138 mg/dL (70-99) Lactic Acid Level 2.0 mmol/L (0.4-2.0) Calcium Level 9.8 mg/dL (8.5-10.1) Magnesium Level 1.6 mg/dL (1.8-2.4) Total Bilirubin 0.4 mg/dL (0.2-1.0) Aspartate Amino Transf (AST/SGOT) 61 U/L (15-37) Alanine Aminotransferase (ALT/SGPT) 89 U/L (14-59) Alkaline Phosphatase 73 U/L (46-116) Troponin I Quantitative < 0.017 ng/mL (0.000-0.055) AV-Yux-L-Type Natriuretic Peptide 41 pg/mL (0-124) Total Protein 7.6 g/dL (6.4-8.2) Albumin 3.4 g/dL (3.4-5.0) Albumin/Globulin Ratio 0.8 (1.0-1.7) Urine Collection Type Unknown Urine Color Yellow Urine Clarity Clear Urine pH 7.0 Urine Specific [place] 1.015 Urine Protein Negative mg/dL (NEG-TRACE) Urine Glucose (UA) Negative mg/dL (NEG) Urine Ketones (Stick) Negative mg/dL (NEG) Urine Blood Negative (NEG) Urine Nitrite Negative (NEG) Urine Bilirubin Negative (NEG) Urine Urobilinogen Dipstick 1.0 mg/dL (0.2 mg/dL) Urine Leukocyte Esterase Negative (NEG) Urine RBC Rare /HPF (0-2) Urine WBC Rare /HPF (0-4) Urine Squamous Epithelial Cells Many /LPF Urine Bacteria Many /HPF (0-FEW) Urine Opiates Screen Neg (NEG) Urine Methadone Screen Neg (NEG) Urine Barbiturates Neg (NEG) Urine Phencyclidine Screen Neg (NEG) Urine Amphetamine/Methamphetamine Neg (NEG) Urine Benzodiazepines Screen Neg (NEG) Urine Cocaine Screen Neg (NEG) Urine Cannabinoids Screen Pos (NEG) Urine Ethyl Alcohol Neg (NEG) Glucose (Fingerstick) 190 mg/dL (70-99) Test 11/05/18 03:30 11/05/18 03:40 11/05/18 07:01 11/05/18 11:26 White Blood Count 7.8 x10^3/uL (4.0-11.0) Red Blood Count 4.48 x10^6/uL (3.50-5.40) Hemoglobin 13.5 g/dL (12.0-15.5) Hematocrit 41.0 % (36.0-47.0) Mean Corpuscular Volume 91 fL (79-100) Mean Corpuscular Hemoglobin 30 pg (25-35) Mean Corpuscular Hemoglobin Concent 33 g/dL (31-37) Red Cell Distribution Width 14.2 % (11.5-14.5) Platelet Count 284 x10^3/uL (140-400) Neutrophils (%) (Auto) 89 % (31-73) Lymphocytes (%) (Auto) 10 % (24-48) Monocytes (%) (Auto) 1 % (0-9) Eosinophils (%) (Auto) 0 % (0-3) Basophils (%) (Auto) 0 % (0-3) Neutrophils # (Auto) 6.9 x10^3uL (1.8-7.7) Lymphocytes # (Auto) 0.8 x10^3/uL (1.0-4.8) Monocytes # (Auto) 0.1 x10^3/uL (0.0-1.1) Eosinophils # (Auto) 0.0 x10^3/uL (0.0-0.7) Basophils # (Auto) 0.0 x10^3/uL (0.0-0.2) Sodium Level 132 mmol/L (136-145) Potassium Level 4.5 mmol/L (3.5-5.1) Chloride Level 95 mmol/L (98-107) Carbon Dioxide Level 24 mmol/L (21-32) Anion Gap 13 (6-14) Blood Urea Nitrogen 11 mg/dL (7-20) Creatinine 1.2 mg/dL (0.6-1.0) Estimated GFR (Cockcroft-Gault) 58.3 Glucose Level 293 mg/dL (70-99) Calcium Level 9.5 mg/dL (8.5-10.1) Nasal Screen MRSA (PCR) Positive (Negative) Glucose (Fingerstick) 281 mg/dL (70-99) 174 mg/dL (70-99) Test 11/05/18 16:48 11/05/18 19:49 11/06/18 03:10 Glucose (Fingerstick) 288 mg/dL (70-99) 195 mg/dL (70-99) Sodium Level 134 mmol/L (136-145) Potassium Level 3.8 mmol/L (3.5-5.1) Chloride Level 99 mmol/L (98-107) Carbon Dioxide Level 23 mmol/L (21-32) Anion Gap 12 (6-14) Blood Urea Nitrogen 16 mg/dL (7-20) Creatinine 1.2 mg/dL (0.6-1.0) Estimated GFR (Cockcroft-Gault) 58.3 Glucose Level 359 mg/dL (70-99) Calcium Level 9.3 mg/dL (8.5-10.1) Laboratory Tests Test 11/05/18 11:26 11/05/18 16:48 11/05/18 19:49 11/06/18 03:10 Glucose (Fingerstick) 174 mg/dL (70-99) 288 mg/dL (70-99) 195 mg/dL (70-99) Sodium Level 134 mmol/L (136-145) Potassium Level 3.8 mmol/L (3.5-5.1) Chloride Level 99 mmol/L (98-107) Carbon Dioxide Level 23 mmol/L (21-32) Anion Gap 12 (6-14) Blood Urea Nitrogen 16 mg/dL (7-20) Creatinine 1.2 mg/dL (0.6-1.0) Estimated GFR (Cockcroft-Gault) 58.3 Glucose Level 359 mg/dL (70-99) Calcium Level 9.3 mg/dL (8.5-10.1) Allergies Allergies Coded Allergies Type Severity Reaction Last Updated Verified lisinopril Allergy Intermediate COUGH 06/13/18 Yes I S O L A T I O N *CONTACT* Allergy Unknown 06/13/18 Yes Disposition/Orders: D/C to Home ALLIE BISWAS MD November 06, 2018 07:13
[2018-11-06 07:20] VITALS: BP 140/75
[2018-11-06] MEDS: ALBUTEROL SULFATE 2.5 MG/3 ML NEBU. NEB SCH (08:13)
[2018-11-06] MEDS: BUDESONIDE 0.5 MG/2 ML NEBU. NEB SCH (08:14)
--- NOTE | 2018-11-06 08:30 | NUR ---
Pt seen by Dr Biswas this morning. Received discharge orders. Reviewed discharge instructions. Pt verbalized understanding. Pt discharged home with .
== END 2018-11-06 08:30 | disposition home or self-care (01) | DRG 202 ==
LOC: ER 13:38 → 6 SOUTH 18:30
PROVIDERS: ADMIT Family Medicine; ATTEND Family Medicine
DX: J45.901 Unspecified asthma with (acute) exacerbation (principal); J44.1 Chronic obstructive pulmonary disease with (acute) exacerbation; E87.1 Hypo-osmolality and hyponatremia; I13.0 Hypertensive heart and chronic kidney disease with heart failure and stage 1 through stage 4 chronic kidney disease, or unspecified chronic kidney disease; I50.32 Chronic diastolic (congestive) heart failure; N18.2 Chronic kidney disease, stage 2 (mild); E11.22 Type 2 diabetes mellitus with diabetic chronic kidney disease; E11.65 Type 2 diabetes mellitus with hyperglycemia; E78.00 Pure hypercholesterolemia, unspecified; E78.5 Hyperlipidemia, unspecified; E87.6 Hypokalemia; F17.210 Nicotine dependence, cigarettes, uncomplicated; F32.9 Major depressive disorder, single episode, unspecified; K21.9 Gastro-esophageal reflux disease without esophagitis; M10.9 Gout, unspecified; K57.90 Diverticulosis of intestine, part unspecified, without perforation or abscess without bleeding; T38.0X5A Adverse effect of glucocorticoids and synthetic analogues, initial encounter; Z82.49 Family history of ischemic heart disease and other diseases of the circulatory system; Z82.5 Family history of asthma and other chronic lower respiratory diseases; Z90.49 Acquired absence of other specified parts of digestive tract; Z83.3 Family history of diabetes mellitus; Z90.710 Acquired absence of both cervix and uterus; F41.9 Anxiety disorder, unspecified; G43.909 Migraine, unspecified, not intractable, without status migrainosus; Z87.01 Personal history of pneumonia (recurrent)
CPT/HCPCS: 36415; 71046; 80048; 80053; 80307; 81001; 82962; 83605; 83735; 83880; 84484; 85007; 85025; 87040; 87086; 87641; 87804; 93005; 94640; 94760; 96361; 96374; 96375; J1815; J2930; J3010; J7040; J7613; J7620; J7626; 99285-25

== ENCOUNTER 2018-11-13 07:38 | Inpatient (IN) | payer OTHER ==
[~2018-11-13] VITALS: Ht 162.6 cm; Wt 89.4 kg
[~2018-11-13 07:38] MED LIST changes: +ARIP5TAB19 PO; +LOSA1TAB19 PO; +METO200T46 PO; +ONDA4TAB12 PO
[2018-11-13] MEDS ORDERED: predniSONE 10 MG TABLET PO ONE (08:00)
[2018-11-13] MEDS ORDERED: IPRATRPIUM/ALBUTEROL 0.5/2.5MG 3 ML NEBU. NEB ONE (08:00)
[2018-11-13 08:24] LABS: BASO % 0 % (0-3); EOS # 0.1 x10^3/uL (0.0-0.7); EOS % 1 % (0-3); HEMATOCRIT 36.8 % (36.0-47.0); HEMOGLOBIN 12.6 g/dL (12.0-15.5); LYMPH % 8 % (24-48); MEAN CORPUSCULAR HEMOGLOBIN 31 pg (25-35); MEAN CORPUSCULAR HGB CONC 34 g/dL (31-37); MEAN CORPUSCULAR VOLUME 89 fL (79-100); MONO # 0.5 x10^3/uL (0.0-1.1); MONO % 4 % (0-9); NEUT # 10.9 x10^3uL (1.8-7.7); NEUT % 87 % (31-73); PLATELET COUNT 392 x10^3/uL (140-400); RED BLOOD COUNT 4.12 x10^6/uL (3.50-5.40); RED CELL DISTRIBUTION WIDTH 14.3 % (11.5-14.5); WHITE BLOOD COUNT 12.5 x10^3/uL (4.0-11.0)
[2018-11-13 08:38] LABS: CALCIUM 9.5 mg/dL (8.5-10.1); GFR 71.9; POTASSIUM 4.2 mmol/L (3.5-5.1)
--- NOTE | 2018-11-13 08:38 | RAD ---
Single view chest dated 11/13/2018. Comparison made to 11/04/2018. CLINICAL INDICATION: Shortness of breath. FINDINGS: Single upright portable exam performed. Heart and mediastinal contours are stable. There is patchy increased density at the right perihilar region and right lung base, increased from prior study. Lungs are otherwise clear. No apparent pleural effusion or pneumothorax. IMPRESSION: Patchy right basilar opacity, atelectasis versus early pneumonia. Electronically signed by: Maurisio Garvin MD (11/13/2018 8:35 AM) [id number]
[2018-11-13 08:43] LABS: ALBUMIN 2.9 g/dL (3.4-5.0); ALBUMIN/GLOBULIN RATIO 0.7 (1.0-1.7); TOTAL BILIRUBIN 0.2 mg/dL (0.2-1.0); TOTAL PROTEIN 6.8 g/dL (6.4-8.2)
[2018-11-13] MEDS ORDERED: ACETAMINOPHEN 325 MG TABLET. PO ONE (09:00)
--- NOTE | 2018-11-13 09:28 | PHYS DOC ---
Past Medical History Past Medical History: Asthma, COPD, Diabetes-Type II, High Cholesterol, Hypertension, Pancreatitis, Pneumonia, Other Additional Past Medical Histor: Lupus Past Surgical History: Appendectomy, Hysterectomy, Other Additional Past Surgical Histo: chest tube for pneumonia, Pancreas surgery Alcohol Use: Occasionally Drug Use: Cocaine, Marijuana Adult General Chief Complaint Chief Complaint: SHORTNESS OF BREATH HPI HPI Patient is a 48 year old AAF who presents with COPD. She finished a course of abx recently (amox) as well as prednisone. She is feeling worse today. She denies chest pain or vomiting or fever. She says her sob has worsened as has her wheezing. She denies leg swelling, recent travel, hormone use. Review of Systems Review of Systems Constitutional: Denies fever or chills Eyes: Denies change in visual acuity, redness, or eye pain HENT: Denies nasal congestion or sore throat Respiratory: Endorses cough and shortness of breath Cardiovascular: Denies CP GI: Denies abdominal pain, nausea, vomiting, bloody stools or diarrhea : Denies dysuria or hematuria Musculoskeletal: Denies back pain or joint pain Integument: Denies rash or skin lesions Neurologic: Denies headache, focal weakness or sensory changes Endocrine: Denies polyuria or polydipsia All other systems were reviewed and found to be within normal limits, except as documented in this note. Current Medications Current Medications Current Medications Medications (Trade) Dose Ordered Sig/Nona Start Time Stop Time Status Last Admin Dose Admin Acetaminophen (Tylenol) 650 mg 1X ONCE 11/13/18 09:00 11/13/18 09:01 DC 11/13/18 09:00 650 MG Albuterol/ Ipratropium (Duoneb) 3 ml 1X ONCE 11/13/18 08:00 11/13/18 08:01 DC 11/13/18 07:53 3 ML Levofloxacin/ Dextrose 150 ml @ 100 mls/hr 1X ONCE 11/13/18 09:45 11/13/18 11:14 11/13/18 10:04 100 MLS/HR Prednisone (Prednisone) 50 mg 1X ONCE 11/13/18 08:00 11/13/18 08:01 DC 11/13/18 08:09 50 MG Allergies Allergies Allergies Coded Allergies Type Severity Reaction Last Updated Verified lisinopril Allergy Intermediate COUGH 06/13/18 Yes I S O L A T I O N *CONTACT* Allergy Unknown 06/13/18 Yes Physical Exam Physical Exam Constitutional: Well developed, well nourished, no acute distress, non-toxic appearance. HENT: Normocephalic, atraumatic, bilateral external ears normal, oropharynx moist, no oral exudates, nose normal. Eyes: PERRLA, EOMI, conjunctiva normal, no discharge. Neck: Normal range of motion, no tenderness, supple, no stridor. Cardiovascular:Heart rate regular rhythm, no murmur Lungs & Thorax: Wheezes bilat lungs, ronchi bilat lungs R>L, 98% on RA Abdomen: Bowel sounds normal, soft, no tenderness, no masses, no pulsatile masses. Skin: Warm, dry, no erythema, no rash. Back: No tenderness, no CVA tenderness. Extremities: No tenderness, no cyanosis, no clubbing, ROM intact, no edema. Neurologic: Alert and oriented X 3, normal motor function, normal sensory function, no focal deficits noted. Psychologic: Affect normal, judgement normal, mood normal. Current Patient Data Vital Signs Vital Signs Date Time Temp Pulse Resp B/P (MAP) Pulse Ox O2 Delivery O2 Flow Rate FiO2 11/13/18 09:55 116 22 170/92 (118) 96 Room Air 11/13/18 07:40 98.2 98.2 Lab Values Laboratory Tests Test 11/13/18 08:03 White Blood Count 12.5 x10^3/uL (4.0-11.0) H Red Blood Count 4.12 x10^6/uL (3.50-5.40) Hemoglobin 12.6 g/dL (12.0-15.5) Hematocrit 36.8 % (36.0-47.0) Mean Corpuscular Volume 89 fL (79-100) Mean Corpuscular Hemoglobin 31 pg (25-35) Mean Corpuscular Hemoglobin Concent 34 g/dL (31-37) Red Cell Distribution Width 14.3 % (11.5-14.5) Platelet Count 392 x10^3/uL (140-400) Neutrophils (%) (Auto) 87 % (31-73) H Lymphocytes (%) (Auto) 8 % (24-48) L Monocytes (%) (Auto) 4 % (0-9) Eosinophils (%) (Auto) 1 % (0-3) Basophils (%) (Auto) 0 % (0-3) Neutrophils # (Auto) 10.9 x10^3uL (1.8-7.7) H Lymphocytes # (Auto) 1.0 x10^3/uL (1.0-4.8) Monocytes # (Auto) 0.5 x10^3/uL (0.0-1.1) Eosinophils # (Auto) 0.1 x10^3/uL (0.0-0.7) Basophils # (Auto) 0.0 x10^3/uL (0.0-0.2) Segmented Neutrophils % 68 % (35-66) H Band Neutrophils % 8 % (0-9) Lymphocytes % 14 % (24-48) L Atypical Lymphocytes % (Manual) 1 % (0-0) H Monocytes % 4 % (0-10) Eosinophils % 2 % (0-5) Myelocytes % 3 % (0-0) H Platelet Estimate Adequate (ADEQUATE) Sodium Level 141 mmol/L (136-145) Potassium Level 4.2 mmol/L (3.5-5.1) Chloride Level 103 mmol/L (98-107) Carbon Dioxide Level 23 mmol/L (21-32) Anion Gap 15 (6-14) H Blood Urea Nitrogen 11 mg/dL (7-20) Creatinine 1.0 mg/dL (0.6-1.0) Estimated GFR (Cockcroft-Gault) 71.9 BUN/Creatinine Ratio 11 (6-20) Glucose Level 183 mg/dL (70-99) H Lactic Acid Level 4.1 mmol/L (0.4-2.0) *H Calcium Level 9.5 mg/dL (8.5-10.1) Total Bilirubin 0.2 mg/dL (0.2-1.0) Aspartate Amino Transferase (AST) 34 U/L (15-37) Alanine Aminotransferase (ALT) 48 U/L (14-59) Alkaline Phosphatase 73 U/L (46-116) Troponin I Quantitative 0.019 ng/mL (0.000-0.055) PW-Ajl-Y-Type Natriuretic Peptide 218 pg/mL (0-124) H Total Protein 6.8 g/dL (6.4-8.2) Albumin 2.9 g/dL (3.4-5.0) L Albumin/Globulin Ratio 0.7 (1.0-1.7) L Laboratory Tests 11/13/18 08:03 Laboratory Tests 11/13/18 08:03 EKG EKG [] Radiology/Procedures Radiology/Procedures [] Course & Med Decision Making Course & Med Decision Making Pertinent Labs and Imaging studies reviewed. (See chart for details) 48 y/o AAF with h/o asthma presents for cough and sob. Wheezes and ronchi tx with prednisone and duonebs with some improvement. CXR read as R atelectasis vs infiltrate. Pt recently finished outpt amox. Levaquin, blood cx, lactic ordered. Lactic elevated. Admit for obs. Dragon Disclaimer Dragon Disclaimer This electronic medical record was generated, in whole or in part, using a voice recognition dictation system. Departure Departure Impression: Primary Impression: Pneumonia Additional Impression: Sepsis Disposition: 09 ADMITTED INPATIENT Admitting Physician: Allie Mares Condition: IMPROVED Referrals: ALLIE MARES MD (PCP) Problem Qualifiers ALLEN CHIU MD November 13, 2018 09:28
[2018-11-13 09:29] LABS: % ATYL 1 % (0-0); % BANDS 8 % (0-9); % EOS 2 % (0-5); % LYMPHS 14 % (24-48); % MONOS 4 % (0-10); % MYELOS 3 % (0-0); % SEGS 68 % (35-66); PLT ESTIMATE ADEQUATE (ADEQUATE)
[2018-11-13] MEDS ORDERED: IV NORMAL SALINE 1000ML BAG 1,000 ML IV ONE ×2 (11:30→12:15)
[2018-11-13 12:15] VITALS: BP 181/93
[2018-11-13] MEDS: ALBUTEROL SULFATE 2.5 MG/3 ML NEBU. NEB SCH ×3 (12:59→20:31)
[2018-11-13] MEDS ORDERED: ALBUTEROL SULFATE 2.5 MG/3 ML NEBU. NEB PRN (13:00)
--- NOTE | 2018-11-13 14:24 | EKG ---
[facility] [address] [place] [address] Test Date: 2018-11-13 Test Time: 07:48:22 Pat Name: CALDERON YAP Department: Room: 672 1 Gender: F Dish Up Person: : 1970 Requested By: ALLEN CHIU Order Number: [id number] Reading MD: Tuan Kiser Measurements Intervals [place] Rate: 117 P: 41 AL: 122 QRS: 1 QRSD: 78 T: 64 QT: 298 QTc: 420 Interpretive Statements SINUS TACHYCARDIA ST & T ABNORMALITY, CONSIDER HIGH LATERAL ISCHEMIA OR LEFT VENTRICULAR STRAIN ABNORMAL ECG Electronically Signed On 12-07-2018 11:44:57 CDT by Tuan Kiser
[2018-11-13] MEDS ORDERED: LORA10TA3 PO (14:50)
[2018-11-13] MEDS ORDERED: FLUT16SP NS (14:50)
[2018-11-13 15:00] VITALS: BP 170/88
--- NOTE | 2018-11-13 15:48 | NUR ---
Medication list reviewed with patient, placed in chart. Requesting cough syrup. 2 1Li boluses administered. Patient up walking unit laps on RA. No complaints of pain, other than when she is coughing. A&O x 4. At times tachy, and in the 120's, but is currently mostly 110's or lower. Will continue to monitor.
--- NOTE | 2018-11-13 17:25 | NUR ---
I discussed observation status with patient, and told her that was a tiny chance she could be discharged. When having discharge planning conversation, patient stated, "Oh I am for sure staying here for a couple of days. It's a great break from home and all of my grandkids." Patient frequently making walks to the refrigerator today, has had numerous snacks. Is happy to be here.
[2018-11-13] MEDS ORDERED: CETIRIZINE HCL 10 MG TABLET. PO PRN (18:00)
[2018-11-13] MEDS ORDERED: ONDANSETRON ODT 4 MG TAB.RAPDIS. PO PRN (18:00)
[2018-11-13] MEDS ORDERED: hydrOXYzine PAMOATE 25 MG CAPSULE PO PRN (18:30)
[2018-11-13 19:16] VITALS: BP 168/83
[2018-11-13] MEDS: BUDESONIDE 0.5 MG/2 ML NEBU. NEB SCH (20:32)
[2018-11-13] MEDS: ATORVASTATIN CALCIUM 40 MG TABLET. PO SCH (21:29)
[2018-11-13 23:35] VITALS: BP 176/101
--- NOTE | 2018-11-13 23:46 | NUR ---
Lactic acid redrawn per Sepsis screen protocol. Results were critical at 4.9, Dr. Villalobos was the on-call physician paged. Dr. Villalobos stated that since pt is eating and drinking P.O. to keep encouraging them to drink and will monitor for further sepsis. This nurse notified the physician of the pt elevated BP, physician stated that the BP meds the pt received at 2100 should start to take effect. Patient is resting comfortably and will continue to monitor for changes.
[2018-11-14 03:20] VITALS: BP 193/117
[2018-11-14 03:27] LABS: BARBITURATES NEG (NEG); BENZODIAZEPINES NEG (NEG); CANNABINOIDS NEG (NEG); COCAINE NEG (NEG); METHADONE NEG (NEG); OPIATES NEG (NEG); PHENCYCLIDINE NEG (NEG)
[2018-11-14 03:33] LABS: AMPHETAMINE/METHAMPHETAMINE NEG (NEG)
[2018-11-14] MEDS ORDERED: DEXTROSE 50% 25 GM / 50ML DISP.SYRIN. IV PRN (07:00)
[2018-11-14] MEDS ORDERED: hydrALAZINE 20 MG/ML VIAL. IVP PRN (07:00)
--- NOTE | 2018-11-14 07:07 | PDOC1 ---
History and Physical Date of Admission Date of Admission 11/13/18 Identification/Chief Complaint Chief Complaint "Can't breathe" Source Source: Patient History of Present Illness History of Present Illness Pt was discharged from the hospital last Monday. States that she finished her steroids around that time but pt was given a weeks worth of steroids which should have lasted her until yesterday. States that she woke up the morning after mother's day with difficulty breathing. Did not call the office, came to the ER yesterday. She denies fevers, chills. She has a non productive cough. Is wheezing. She was supposed to make an appointment with Dr. Vann after her last hospitalization but she did not. Discussed making an appointment today. In discussing possible triggers, pt states that she sleeps on a matthew couch, and she has been around her grandson who has been sick. She also thinks she gets triggered by the weather. Past Medical History Cardiovascular: CHF, HTN, Hyperlipidemia Pulmonary: Asthma, COPD CENTRAL NERVOUS SYSTEM: Migraine GI: Diverticulosis, GERD Heme/Onc: Anemia NOS, Other Hepatobiliary: No pertinent hx Psych: Anxiety, Depression Rheumatologic: Gout, Other Infectious disease: No pertinent hx Renal/: Chronic renal insuff Endocrine: Other Dermatology: No pertinent hx Past Surgical History Past Surgical History: Appendectomy, Tubal Ligation, Hysterectomy, Other Family History Family History: Asthma, Diabetes, Hypertension Family History: Parent Social History Smoke: <1 pack per day ALCOHOL: social Drugs: Cocaine Current Problem List Problem List Problems Medical Problems: (1) Pneumonia Status: Acute (2) Sepsis Status: Acute Current Medications Current Medications Current Medications Medications (Trade) Dose Ordered Sig/Nona Start Time Stop Time Status Last Admin Dose Admin Acetaminophen (Tylenol) 650 mg 1X ONCE 11/13/18 09:00 11/13/18 09:01 DC 11/13/18 09:00 650 MG Albuterol Sulfate (Ventolin Neb Soln) 2.5 mg PRN Q4HRS PRN 11/13/18 13:00 11/14/18 03:32 2.5 MG Albuterol/ Ipratropium (Duoneb) 3 ml 1X ONCE 11/13/18 08:00 11/13/18 08:01 DC 11/13/18 07:53 3 ML Allopurinol (Zyloprim) 100 mg DAILY 11/14/18 09:00 Amlodipine Besylate (Norvasc) 10 mg DAILY 11/14/18 09:00 Aripiprazole (Abilify) 5 mg DAILY 11/14/18 09:00 Atorvastatin Calcium (Lipitor) 40 mg QHS 11/13/18 21:00 11/13/18 21:29 40 MG Budesonide (Pulmicort) 0.5 mg RTBID 11/13/18 20:00 11/13/18 20:32 0.5 MG Cetirizine HCl (ZyrTEC) 10 mg PRN DAILY PRN 11/13/18 18:00 Colchicine (Colcrys) 0.6 mg DAILY 11/14/18 09:00 EZETIMIBE (Zetia) 10 mg DAILY 11/14/18 09:00 Ferrous Sulfate (Feosol) 325 mg DAILY 11/14/18 09:00 Fluticasone Propionate (Flonase) 2 spray DAILY 11/14/18 09:00 Hydralazine HCl (Apresoline Inj) 10 mg PRN Q4HRS PRN 11/14/18 07:00 Hydralazine HCl (Apresoline) 50 mg TID 11/13/18 21:00 11/13/18 21:29 50 MG Hydrochlorothiazide (Microzide) 12.5 mg [id number] 11/14/18 09:00 Hydroxyzine Pamoate (Vistaril) 25 mg PRN Q6HRS PRN 11/13/18 18:30 Levofloxacin/ Dextrose 150 ml @ 100 mls/hr 1X ONCE 11/13/18 09:45 11/13/18 11:14 DC 11/13/18 10:04 100 MLS/HR Losartan Potassium (Cozaar) 50 mg BID 11/14/18 09:00 Meloxicam (Mobic) 15 mg DAILY 11/14/18 09:00 Metoprolol Succinate (Toprol Xl) 200 mg DAILY 11/14/18 09:00 Ondansetron HCl (Zofran Odt) 4 mg PRN Q4HRS PRN 11/13/18 18:00 Pantoprazole Sodium (Protonix) 40 mg DAILYAC 11/14/18 07:30 Potassium Chloride (Klor-Con) 20 meq [id number] 11/14/18 08:00 Prednisone (Prednisone) 50 mg 1X ONCE 11/13/18 08:00 11/13/18 08:01 DC 11/13/18 08:09 50 MG Sodium Chloride 1,000 ml @ 1,000 mls/hr 1X ONCE 11/13/18 12:15 11/13/18 13:14 DC 11/13/18 13:53 1,000 MLS/HR Allergies Allergies Allergies Coded Allergies Type Severity Reaction Last Updated Verified lisinopril Allergy Intermediate COUGH 06/13/18 Yes I S O L A T I O N *CONTACT* Allergy Unknown 06/13/18 Yes ROS Review of System CONSTITUTIONAL: No fever or chills EYES: No recent changes SKIN: No rash or itching CARDIOVASCULAR: No chest pain, syncope, palpitations, or edema RESPIRATORY: + SOB or cough GASTROINTESTINAL: No vomiting or abdominal pain, +nausea NEUROLOGICAL: No headaches or weakness ENDOCRINE: No cold or heat intolerance GENITOURINARY: No urgency or frequency of urination MUSCULOSKELETAL: No back pain or joint pain LYMPHATICS: No enlarged lymph nodes PSYCHIATRIC: No anxiety or depression Physical Exam Physical Exam GEN.: No apparent distress. Alert and oriented. HEENT: Head is normocephalic, atraumatic NECK: Supple. LUNGS: Clear to auscultation, inspiratory/expiratory wheezes throughout HEART: RRR, S1, S2 present. Peripheral pulses intact ABDOMEN: Soft, nontender. Positive bowel sounds. EXTREMITIES: Without any cyanosis. NEUROLOGIC: Normal speech, normal tone PSYCHIATRIC: Normal affect, normal mood. SKIN: No ulcerations Vitals Vitals Vital Signs Date Time Temp Pulse Resp B/P (MAP) Pulse Ox O2 Delivery O2 Flow Rate FiO2 11/14/18 03:33 94 Room Air 11/14/18 03:20 98.0 104 20 193/117 (142) 98.0 Labs Labs Laboratory Tests Test 11/13/18 08:03 11/13/18 11:45 11/13/18 12:28 11/13/18 16:52 White Blood Count 12.5 x10^3/uL (4.0-11.0) Red Blood Count 4.12 x10^6/uL (3.50-5.40) Hemoglobin 12.6 g/dL (12.0-15.5) Hematocrit 36.8 % (36.0-47.0) Mean Corpuscular Volume 89 fL (79-100) Mean Corpuscular Hemoglobin 31 pg (25-35) Mean Corpuscular Hemoglobin Concent 34 g/dL (31-37) Red Cell Distribution Width 14.3 % (11.5-14.5) Platelet Count 392 x10^3/uL (140-400) Neutrophils (%) (Auto) 87 % (31-73) Lymphocytes (%) (Auto) 8 % (24-48) Monocytes (%) (Auto) 4 % (0-9) Eosinophils (%) (Auto) 1 % (0-3) Basophils (%) (Auto) 0 % (0-3) Neutrophils # (Auto) 10.9 x10^3uL (1.8-7.7) Lymphocytes # (Auto) 1.0 x10^3/uL (1.0-4.8) Monocytes # (Auto) 0.5 x10^3/uL (0.0-1.1) Eosinophils # (Auto) 0.1 x10^3/uL (0.0-0.7) Basophils # (Auto) 0.0 x10^3/uL (0.0-0.2) Segmented Neutrophils % 68 % (35-66) Band Neutrophils % 8 % (0-9) Lymphocytes % 14 % (24-48) Atypical Lymphocytes % (Manual) 1 % (0-0) Monocytes % 4 % (0-10) Eosinophils % 2 % (0-5) Myelocytes % 3 % (0-0) Platelet Estimate Adequate (ADEQUATE) Sodium Level 141 mmol/L (136-145) Potassium Level 4.2 mmol/L (3.5-5.1) Chloride Level 103 mmol/L (98-107) Carbon Dioxide Level 23 mmol/L (21-32) Anion Gap 15 (6-14) Blood Urea Nitrogen 11 mg/dL (7-20) Creatinine 1.0 mg/dL (0.6-1.0) Estimated GFR (Cockcroft-Gault) 71.9 BUN/Creatinine Ratio 11 (6-20) Glucose Level 183 mg/dL (70-99) Lactic Acid Level 4.1 mmol/L (0.4-2.0) 4.9 mmol/L (0.4-2.0) Calcium Level 9.5 mg/dL (8.5-10.1) Total Bilirubin 0.2 mg/dL (0.2-1.0) Aspartate Amino Transf (AST/SGOT) 34 U/L (15-37) Alanine Aminotransferase (ALT/SGPT) 48 U/L (14-59) Alkaline Phosphatase 73 U/L (46-116) Troponin I Quantitative 0.019 ng/mL (0.000-0.055) GK-Nkz-A-Type Natriuretic Peptide 218 pg/mL (0-124) Total Protein 6.8 g/dL (6.4-8.2) Albumin 2.9 g/dL (3.4-5.0) Albumin/Globulin Ratio 0.7 (1.0-1.7) Glucose (Fingerstick) 190 mg/dL (70-99) 274 mg/dL (70-99) Test 11/13/18 20:53 11/13/18 22:35 11/14/18 03:15 Glucose (Fingerstick) 197 mg/dL (70-99) Lactic Acid Level 4.9 mmol/L (0.4-2.0) Urine Opiates Screen Neg (NEG) Urine Methadone Screen Neg (NEG) Urine Barbiturates Neg (NEG) Urine Phencyclidine Screen Neg (NEG) Urine Amphetamine/Methamphetamine Neg (NEG) Urine Benzodiazepines Screen Neg (NEG) Urine Cocaine Screen Neg (NEG) Urine Cannabinoids Screen Neg (NEG) Urine Ethyl Alcohol Neg (NEG) Laboratory Tests Test 11/13/18 08:03 11/13/18 11:45 11/13/18 12:28 11/13/18 16:52 White Blood Count 12.5 x10^3/uL (4.0-11.0) Red Blood Count 4.12 x10^6/uL (3.50-5.40) Hemoglobin 12.6 g/dL (12.0-15.5) Hematocrit 36.8 % (36.0-47.0) Mean Corpuscular Volume 89 fL (79-100) Mean Corpuscular Hemoglobin 31 pg (25-35) Mean Corpuscular Hemoglobin Concent 34 g/dL (31-37) Red Cell Distribution Width 14.3 % (11.5-14.5) Platelet Count 392 x10^3/uL (140-400) Neutrophils (%) (Auto) 87 % (31-73) Lymphocytes (%) (Auto) 8 % (24-48) Monocytes (%) (Auto) 4 % (0-9) Eosinophils (%) (Auto) 1 % (0-3) Basophils (%) (Auto) 0 % (0-3) Neutrophils # (Auto) 10.9 x10^3uL (1.8-7.7) Lymphocytes # (Auto) 1.0 x10^3/uL (1.0-4.8) Monocytes # (Auto) 0.5 x10^3/uL (0.0-1.1) Eosinophils # (Auto) 0.1 x10^3/uL (0.0-0.7) Basophils # (Auto) 0.0 x10^3/uL (0.0-0.2) Segmented Neutrophils % 68 % (35-66) Band Neutrophils % 8 % (0-9) Lymphocytes % 14 % (24-48) Atypical Lymphocytes % (Manual) 1 % (0-0) Monocytes % 4 % (0-10) Eosinophils % 2 % (0-5) Myelocytes % 3 % (0-0) Platelet Estimate Adequate (ADEQUATE) Sodium Level 141 mmol/L (136-145) Potassium Level 4.2 mmol/L (3.5-5.1) Chloride Level 103 mmol/L (98-107) Carbon Dioxide Level 23 mmol/L (21-32) Anion Gap 15 (6-14) Blood Urea Nitrogen 11 mg/dL (7-20) Creatinine 1.0 mg/dL (0.6-1.0) Estimated GFR (Cockcroft-Gault) 71.9 BUN/Creatinine Ratio 11 (6-20) Glucose Level 183 mg/dL (70-99) Lactic Acid Level 4.1 mmol/L (0.4-2.0) 4.9 mmol/L (0.4-2.0) Calcium Level 9.5 mg/dL (8.5-10.1) Total Bilirubin 0.2 mg/dL (0.2-1.0) Aspartate Amino Transf (AST/SGOT) 34 U/L (15-37) Alanine Aminotransferase (ALT/SGPT) 48 U/L (14-59) Alkaline Phosphatase 73 U/L (46-116) Troponin I Quantitative 0.019 ng/mL (0.000-0.055) WB-Qdr-Z-Type Natriuretic Peptide 218 pg/mL (0-124) Total Protein 6.8 g/dL (6.4-8.2) Albumin 2.9 g/dL (3.4-5.0) Albumin/Globulin Ratio 0.7 (1.0-1.7) Glucose (Fingerstick) 190 mg/dL (70-99) 274 mg/dL (70-99) Test 11/13/18 20:53 11/13/18 22:35 11/14/18 03:15 Glucose (Fingerstick) 197 mg/dL (70-99) Lactic Acid Level 4.9 mmol/L (0.4-2.0) Urine Opiates Screen Neg (NEG) Urine Methadone Screen Neg (NEG) Urine Barbiturates Neg (NEG) Urine Phencyclidine Screen Neg (NEG) Urine Amphetamine/Methamphetamine Neg (NEG) Urine Benzodiazepines Screen Neg (NEG) Urine Cocaine Screen Neg (NEG) Urine Cannabinoids Screen Neg (NEG) Urine Ethyl Alcohol Neg (NEG) VTE Prophylaxis Ordered VTE Prophylaxis Devices: Yes VTE Pharmacological Prophylaxi: No Assessment/Plan Assessment/Plan Pt is a 48yo AAF admitted for asthma exacerbation 1)Asthma exacerbation- will continue IV steroids and breathing treatments. Pt is going to make f/u apt with Dr. Vann today. Discussed possible SNF placement after this discharge with pt's frequent readmissions. 2)SIRS- no current source of infection. Afebrile, cough non productive. CTM 3)HTN- uncontrolled. Will resume pt's home medications including Hydralazine 50mg TID, Losartan 50mg BID, HCTZ 12.5mg BID, Metoprolol XR 200mg, Amlodipine 10mg. Will have Hydralazine prn 4)Anxiety/Depression/Bipolar- pt continued on Aripiprazole 5)Prediabetes/Steroid induced hyperglycemia- HbA1C last month was 6.1. Will start Lantus 12U and have SSI available 6)HLD- pt continued on atorvastatin and zetia 7)PEM- moderate 8)Lactic Acidosis- CTM 9)CKD- stable 10)Gout 11)CHF- diastolic, compensated ALLIE MARES MD November 14, 2018 07:07
[2018-11-14 07:15] VITALS: BP 165/95
[2018-11-14] MEDS: BUDESONIDE 0.5 MG/2 ML NEBU. NEB SCH ×2 (08:00→20:45)
[2018-11-14] MEDS: POTASSIUM CHLORIDE 20 MEQ TABLET.ER. PO SCH (08:00)
[2018-11-14] MEDS: INSULIN LISPRO 300 UNITS/3 ML INSULN.PEN. SQ SCH ×3 (08:00→17:53)
[2018-11-14] MEDS: METOPROLOL SUCC 24HR ER 100 MG TAB.ER.24H. PO SCH (08:46)
[2018-11-14] MEDS: MELOXICAM 7.5 MG TABLET PO SCH (08:47)
[2018-11-14] MEDS: amLODIPine BESYLATE 10 MG TABLET PO SCH (08:47)
[2018-11-14] MEDS: COLCHICINE 0.6 MG TABLET PO SCH (08:48)
[2018-11-14] MEDS: EZETIMIBE 10 MG TABLET. PO SCH (08:48)
[2018-11-14] MEDS: hydroCHLOROthiazide 12.5 MG CAPSULE PO SCH ×2 (08:48→17:50)
[2018-11-14] MEDS: ARIPiprazole 5 MG TABLET PO SCH (08:48)
[2018-11-14] MEDS: FERROUS SULFATE 325 MG TABLET. PO SCH (08:48)
[2018-11-14] MEDS: LOSARTAN POTASSIUM 50 MG TABLET. PO SCH ×2 (08:48→20:42)
[2018-11-14] MEDS: ALLOPURINOL 100 MG TABLET. PO SCH (08:49)
[2018-11-14] MEDS: PANTOPRAZOLE 40 MG TABLET.DR. PO SCH (08:49)
[2018-11-14] MEDS: ENOXAPARIN 40 MG/0.4 ML SYRINGE. SQ SCH (08:50)
[2018-11-14] MEDS: methylPREDNISolone SOD SUCC PF 125 MG/2 ML VIAL. IV SCH ×3 (08:50→20:46)
[2018-11-14] MEDS: FLUTICASONE 50MCG/NASAL SPRAY 16GM BOTTLE. NS SCH (08:51)
[2018-11-14] MEDS ORDERED: LOSARTAN POTASSIUM 50 MG TABLET. PO SCH (09:00)
[2018-11-14] MEDS: INSULIN GLARGINE 300 UNITS/3 ML INSULN.PEN. SQ SCH ×2 (09:05→20:52)
--- NOTE | 2018-11-14 09:09 | NUR ---
IP: Pt has a hx of + mrsa screens since 2014 with most recent on 11/05/18. Pt to be in contact precautions until there are 2 negative screens 7 days apart.
[2018-11-14] MEDS: ALBUTEROL SULFATE 2.5 MG/3 ML NEBU. NEB SCH ×4 (09:14→20:45)
[2018-11-14] MEDS: guaiFENesin/CODEINE 100mg/10mg 5 ML LIQUID PO PRN ×2 (10:30→17:50)
[2018-11-14 11:10] VITALS: BP 174/100
--- NOTE | 2018-11-14 11:21 | NUR ---
SW consulted for possible SNF placement on discharge. Chart reviewed and DW RN. RN reports Pt is not interested in SNU, participating with PT/OT or discussing with SW at this time. Pt is also independent with ADL's and does not qualify for SNU evaluation.
[2018-11-14 14:02] VITALS: BP 146/82
[2018-11-14 19:00] VITALS: BP 154/87
[2018-11-14] MEDS: ATORVASTATIN CALCIUM 40 MG TABLET. PO SCH (20:45)
[2018-11-14 23:00] VITALS: BP 158/87
[2018-11-15] MEDS: guaiFENesin/CODEINE 100mg/10mg 5 ML LIQUID PO PRN ×3 (00:23→21:37)
[2018-11-15 03:19] VITALS: BP 160/81
[2018-11-15] MEDS: methylPREDNISolone SOD SUCC PF 125 MG/2 ML VIAL. IV SCH ×3 (05:33→22:00)
[2018-11-15] MEDS: PANTOPRAZOLE 40 MG TABLET.DR. PO SCH (05:33)
[2018-11-15 07:00] VITALS: BP 166/97
--- NOTE | 2018-11-15 07:23 | PDOC ---
SUBJECTIVE Subjective Pt states that she is ready to go home. Feeling better. Has thrush on mouth. Cough is still non productive. OBJECTIVE Vital Signs Vital Signs Date Time Temp Pulse Resp B/P (MAP) Pulse Ox O2 Delivery O2 Flow Rate FiO2 11/15/18 03:19 98.1 75 20 160/81 (107) 95 Nasal Cannula 98.1 11/14/18 23:00 97.9 96 20 158/87 (110) 96 Nasal Cannula 97.9 11/14/18 20:48 98 Room Air 11/14/18 20:45 98 Room Air 11/14/18 20:42 92 154/87 11/14/18 20:42 92 154/87 11/14/18 20:02 Room Air 11/14/18 19:00 96.1 92 20 154/87 (109) 97 Nasal Cannula 96.1 11/14/18 16:25 Room Air 11/14/18 15:22 Room Air 11/14/18 14:09 87 146/82 11/14/18 14:02 98.7 87 20 146/82 (103) 96 Room Air 98.7 11/14/18 13:01 Room Air 11/14/18 11:41 98 174/100 11/14/18 11:10 98.7 98 20 174/100 (124) 100 Room Air 98.7 11/14/18 09:14 97 Room Air 11/14/18 08:48 74 165/95 11/14/18 08:47 74 165/95 11/14/18 08:47 74 165/95 11/14/18 08:46 74 165/95 11/14/18 08:00 Room Air I & O Intake and Output 11/15/18 07:00 Intake Total 1320 ml Output Total 600 ml Balance 720 ml Intake Oral 1320 ml Output Urine Total 600 ml # Voids 2 PHYSICAL EXAM Physical Exam GEN.: No apparent distress. Alert and oriented. HEENT: Head is normocephalic, atraumatic, white coating on tongue NECK: Supple. LUNGS: inspiratory/expiratory wheezes throughout HEART: RRR, S1, S2 present. Peripheral pulses intact ABDOMEN: Soft, nontender. Positive bowel sounds. EXTREMITIES: Without any cyanosis. NEUROLOGIC: Normal speech, normal tone PSYCHIATRIC: Normal affect, normal mood. SKIN: No ulcerations ASSESSMENT/PLAN Assessment/Plan Pt is a 48yo AAF admitted for asthma exacerbation 1)Asthma exacerbation- pt wanting to go home today, still having significant wheezing. Will continue IV steroids and breathing treatments. Cough is still non productive and pt is still afebrile, will continue to hold abx at this time. 2)SIRS- improving, repeat Lactic Acid pending. Leukocytosis likely from steroids. No current source of infection. Afebrile, cough non productive. CTM 3)HTN- uncontrolled, worsened by steroids. Pt continued on home medications Hydralazine 50mg TID, Losartan 50mg BID, HCTZ 12.5mg BID, Metoprolol XR 200mg, Amlodipine 10mg. Will have Hydralazine prn 4)Anxiety/Depression/Bipolar- pt continued on Aripiprazole 5)Prediabetes/Steroid induced hyperglycemia- HbA1C last month was 6.1. Will start Lantus 12U and have SSI available (additional 7 units used yesterday) 6)HLD- pt continued on atorvastatin and zetia 7)PEM- moderate 8)Lactic Acidosis- CTM 9)CKD- stable 10)Gout 11)CHF- diastolic, compensated COMMENT Lab Laboratory Tests Test 11/14/18 11:11 11/14/18 16:55 11/14/18 20:09 Glucose (Fingerstick) 210 mg/dL (70-99) 251 mg/dL (70-99) 192 mg/dL (70-99) ALLIE MARES MD November 15, 2018 07:23
[2018-11-15] MEDS: POTASSIUM CHLORIDE 20 MEQ TABLET.ER. PO SCH (08:00)
[2018-11-15] MEDS: ENOXAPARIN 40 MG/0.4 ML SYRINGE. SQ SCH (08:22)
[2018-11-15] MEDS: EZETIMIBE 10 MG TABLET. PO SCH (08:22)
[2018-11-15] MEDS: amLODIPine BESYLATE 10 MG TABLET PO SCH (08:22)
[2018-11-15] MEDS: FERROUS SULFATE 325 MG TABLET. PO SCH (08:23)
[2018-11-15] MEDS: METOPROLOL SUCC 24HR ER 100 MG TAB.ER.24H. PO SCH (08:23)
[2018-11-15] MEDS: ARIPiprazole 5 MG TABLET PO SCH (08:23)
[2018-11-15] MEDS: MELOXICAM 7.5 MG TABLET PO SCH (08:23)
[2018-11-15] MEDS: hydroCHLOROthiazide 12.5 MG CAPSULE PO SCH ×2 (08:23→15:04)
[2018-11-15] MEDS: LOSARTAN POTASSIUM 50 MG TABLET. PO SCH ×2 (08:23→21:31)
[2018-11-15] MEDS: ALLOPURINOL 100 MG TABLET. PO SCH (08:24)
[2018-11-15] MEDS: FLUTICASONE 50MCG/NASAL SPRAY 16GM BOTTLE. NS SCH (08:24)
[2018-11-15] MEDS: COLCHICINE 0.6 MG TABLET PO SCH (08:25)
[2018-11-15] MEDS: INSULIN LISPRO 300 UNITS/3 ML INSULN.PEN. SQ SCH ×3 (08:27→16:57)
[2018-11-15] MEDS: ALBUTEROL SULFATE 2.5 MG/3 ML NEBU. NEB SCH ×4 (08:51→21:18)
[2018-11-15] MEDS: BUDESONIDE 0.5 MG/2 ML NEBU. NEB SCH ×2 (08:53→21:18)
[2018-11-15 09:58] LABS: BASO % 0 % (0-3); EOS % 0 % (0-3); HEMATOCRIT 38.6 % (36.0-47.0); HEMOGLOBIN 12.7 g/dL (12.0-15.5); LYMPH # 1.1 x10^3/uL (1.0-4.8); LYMPH % 4 % (24-48); MEAN CORPUSCULAR HEMOGLOBIN 29 pg (25-35); MEAN CORPUSCULAR HGB CONC 33 g/dL (31-37); MEAN CORPUSCULAR VOLUME 89 fL (79-100); MONO # 0.3 x10^3/uL (0.0-1.1); MONO % 1 % (0-9); NEUT # 23.2 x10^3uL (1.8-7.7); NEUT % 94 % (31-73); PLATELET COUNT 407 x10^3/uL (140-400); RED BLOOD COUNT 4.32 x10^6/uL (3.50-5.40); RED CELL DISTRIBUTION WIDTH 14.5 % (11.5-14.5); WHITE BLOOD COUNT 24.6 x10^3/uL (4.0-11.0)
[2018-11-15 10:21] LABS: CALCIUM 9.7 mg/dL (8.5-10.1); GFR 71.9; POTASSIUM 3.8 mmol/L (3.5-5.1)
[2018-11-15 11:00] VITALS: BP 150/90
[2018-11-15 15:00] VITALS: BP 150/86
[2018-11-15 19:00] VITALS: BP 149/94
[2018-11-15] MEDS: ATORVASTATIN CALCIUM 40 MG TABLET. PO SCH (21:31)
[2018-11-15] MEDS: INSULIN GLARGINE 300 UNITS/3 ML INSULN.PEN. SQ SCH (21:39)
[2018-11-16 03:04] VITALS: BP 166/101
[2018-11-16] MEDS: methylPREDNISolone SOD SUCC PF 125 MG/2 ML VIAL. IV SCH (06:17)
[2018-11-16 07:20] VITALS: BP 169/99
[2018-11-16] MEDS ORDERED: guaiFENesin/CODEINE 100mg/10mg PO (07:42)
[2018-11-16] MEDS ORDERED: NYST100054 PO (07:42)
[2018-11-16] MEDS ORDERED: HYDR-2869 PO (07:42)
--- NOTE | 2018-11-16 07:44 | PDOC3 ---
Discharge Summary Visit Information Date of Admission: November 14, 2018 Date of Discharge: November 16, 2018 Admitting Diagnosis: COPD Exacerbation Final Diagnosis Asthma exacerbation, Thrush, SIRS, HTN, Anxiety/Depression/Bipolar, Prediabetes/Steroid induced hyperglycemia, HLD, PEM-moderate, Lactic Acidosis, CKD- stable, Gout, CHF- diastolic compensated Brief Hospital Course Allergies Allergies Coded Allergies Type Severity Reaction Last Updated Verified lisinopril Allergy Intermediate COUGH 06/13/18 Yes I S O L A T I O N *CONTACT* Allergy Unknown 06/13/18 Yes Vital Signs Vital Signs Date Time Temp Pulse Resp B/P (MAP) Pulse Ox O2 Delivery O2 Flow Rate FiO2 11/16/18 03:04 97.5 78 16 166/101 (122) 99 Nasal Cannula 3.0 97.5 Lab Results Laboratory Tests Test 11/14/18 11:11 11/14/18 16:55 11/14/18 20:09 11/15/18 07:32 Glucose (Fingerstick) 210 mg/dL (70-99) 251 mg/dL (70-99) 192 mg/dL (70-99) 153 mg/dL (70-99) Test 11/15/18 08:45 11/15/18 11:48 11/15/18 16:42 11/15/18 21:05 White Blood Count 24.6 x10^3/uL (4.0-11.0) Red Blood Count 4.32 x10^6/uL (3.50-5.40) Hemoglobin 12.7 g/dL (12.0-15.5) Hematocrit 38.6 % (36.0-47.0) Mean Corpuscular Volume 89 fL (79-100) Mean Corpuscular Hemoglobin 29 pg (25-35) Mean Corpuscular Hemoglobin Concent 33 g/dL (31-37) Red Cell Distribution Width 14.5 % (11.5-14.5) Platelet Count 407 x10^3/uL (140-400) Neutrophils (%) (Auto) 94 % (31-73) Lymphocytes (%) (Auto) 4 % (24-48) Monocytes (%) (Auto) 1 % (0-9) Eosinophils (%) (Auto) 0 % (0-3) Basophils (%) (Auto) 0 % (0-3) Neutrophils # (Auto) 23.2 x10^3uL (1.8-7.7) Lymphocytes # (Auto) 1.1 x10^3/uL (1.0-4.8) Monocytes # (Auto) 0.3 x10^3/uL (0.0-1.1) Eosinophils # (Auto) 0.0 x10^3/uL (0.0-0.7) Basophils # (Auto) 0.0 x10^3/uL (0.0-0.2) Sodium Level 139 mmol/L (136-145) Potassium Level 3.8 mmol/L (3.5-5.1) Chloride Level 99 mmol/L (98-107) Carbon Dioxide Level 25 mmol/L (21-32) Anion Gap 15 (6-14) Blood Urea Nitrogen 17 mg/dL (7-20) Creatinine 1.0 mg/dL (0.6-1.0) Estimated GFR (Cockcroft-Gault) 71.9 Glucose Level 168 mg/dL (70-99) Lactic Acid Level 3.5 mmol/L (0.4-2.0) Calcium Level 9.7 mg/dL (8.5-10.1) Glucose (Fingerstick) 284 mg/dL (70-99) 232 mg/dL (70-99) 244 mg/dL (70-99) Test 11/16/18 07:30 Glucose (Fingerstick) 217 mg/dL (70-99) Laboratory Tests Test 11/15/18 08:45 11/15/18 11:48 11/15/18 16:42 11/15/18 21:05 White Blood Count 24.6 x10^3/uL (4.0-11.0) Red Blood Count 4.32 x10^6/uL (3.50-5.40) Hemoglobin 12.7 g/dL (12.0-15.5) Hematocrit 38.6 % (36.0-47.0) Mean Corpuscular Volume 89 fL (79-100) Mean Corpuscular Hemoglobin 29 pg (25-35) Mean Corpuscular Hemoglobin Concent 33 g/dL (31-37) Red Cell Distribution Width 14.5 % (11.5-14.5) Platelet Count 407 x10^3/uL (140-400) Neutrophils (%) (Auto) 94 % (31-73) Lymphocytes (%) (Auto) 4 % (24-48) Monocytes (%) (Auto) 1 % (0-9) Eosinophils (%) (Auto) 0 % (0-3) Basophils (%) (Auto) 0 % (0-3) Neutrophils # (Auto) 23.2 x10^3uL (1.8-7.7) Lymphocytes # (Auto) 1.1 x10^3/uL (1.0-4.8) Monocytes # (Auto) 0.3 x10^3/uL (0.0-1.1) Eosinophils # (Auto) 0.0 x10^3/uL (0.0-0.7) Basophils # (Auto) 0.0 x10^3/uL (0.0-0.2) Sodium Level 139 mmol/L (136-145) Potassium Level 3.8 mmol/L (3.5-5.1) Chloride Level 99 mmol/L (98-107) Carbon Dioxide Level 25 mmol/L (21-32) Anion Gap 15 (6-14) Blood Urea Nitrogen 17 mg/dL (7-20) Creatinine 1.0 mg/dL (0.6-1.0) Estimated GFR (Cockcroft-Gault) 71.9 Glucose Level 168 mg/dL (70-99) Lactic Acid Level 3.5 mmol/L (0.4-2.0) Calcium Level 9.7 mg/dL (8.5-10.1) Glucose (Fingerstick) 284 mg/dL (70-99) 232 mg/dL (70-99) 244 mg/dL (70-99) Test 11/16/18 07:30 Glucose (Fingerstick) 217 mg/dL (70-99) Brief Hospital Course Pt is a 48yo AAF admitted for asthma exacerbation 1)Asthma exacerbation- pt's wheezing improved throughout admission but was not completely resolved on discharge. Pt was adamant about wanting to go home. Pt remained afebrile during her admission. Had cough with clear sputum. Repeat CXR did not show pneumonia. Pt has apt scheduled with pulmonary but it is later in the summer. Strict return precautions, pt to f/u early next week. DC'd on longer steroid taper. 2)SIRS- improving, repeat Lactic Acid pending. Leukocytosis likely from steroids. No current source of infection. Afebrile, cough non productive. 3)HTN- uncontrolled, worsened by steroids. Pt continued on home medications Hydralazine 50mg TID, Losartan 50mg BID, HCTZ 12.5mg BID, Metoprolol XR 200mg, Amlodipine 10mg. Hydralazine IV was available prn 4)Anxiety/Depression/Bipolar- pt continued on Aripiprazole 5)Prediabetes/Steroid induced hyperglycemia- HbA1C last month was 6.1. Pt was DC'd on Lantus 12U while on steroids. 6)HLD- pt continued on atorvastatin and zetia 7)PEM- moderate 8)Lactic Acidosis- CTM 9)CKD- stable 10)Gout 11)CHF- diastolic, compensated 12)Thrush- pt DC'd on nystatin swish and swallow Discharge Information Condition at Discharge: Improved Follow Up: Weeks (3-5 days) Disposition/Orders: D/C to Home Scheduled Albuterol Sulfate (Ventolin Hfa Inhaler) 18 Gm Hfa.aer.ad, 2 PUFF INH Q4HRS for FOR ASTHMA, #1 Ref 0 Prescribed by: Corina Pearson APRN on 10/02/181909 Last Action: HELD on 11/13/181804 by ALLIE MARES MD Allopurinol (Allopurinol) 100 Mg Tablet, 100 MG PO DAILY for gout for 90 Days, #90 Ref 3 Prescribed by: DIAMANTE ANTHONY MD on 06/16/18 0938 Last Action: Continued on 11/13/181804 by ALLIE MARES MD Amlodipine Besylate (Amlodipine Besylate) 10 Mg Tablet, 10 MG PO DAILY for 30 Days, #30 Ref 11 Prescribed by: DIAMANTE ANTHONY MD on 01/11/17 1516 Last Action: Continued on 11/13/181804 by ALLIE MARES MD Aripiprazole (Aripiprazole) 5 Mg Tablet, 5 MG PO DAILY for GERD, (Reported) Entered as Reported by: Radha Finley RN on 11/04/182100 Last Action: Continued on 11/13/181804 by ALLIE MARES MD Atorvastatin Calcium (Atorvastatin Calcium) 40 Mg Tablet, 40 MG PO QHS for 30 Da ys, #30 Prescribed by: ALLIE MARES MD on 06/14/17 1252 Last Action: Continued on 11/13/181804 by ALLIE MARES MD Budesonide/Formoterol Fumarate (Symbicort 160-4.5 Mcg Inhaler) 10.2 Gm Hfa.aer.ad, 2 PUFF IH BID for COPD , #1 Ref 3 (Reported) Entered as Reported by: NATIVIDAD RODRIGUEZ RN on 10/13/18130 Last Action: Converted on 11/13/181804 by ALLIE MARES MD Colchicine (Colcrys) 0.6 Mg Tablet, 0.6 MG PO DAILY for Gout, (Reported) Entered as Reported by: NATIVIDAD RODRIGUEZ RN on 10/13/18130 Last Action: Continued on 11/13/181804 by ALLIE MARES MD Ezetimibe (Zetia) 10 Mg Tablet, 10 MG PO DAILY for cholesterol for 90 Days, #90 Ref 3 Prescribed by: DIAMANTE ANTHONY MD on 06/16/18 0938 Last Action: Continued on 11/13/181804 by ALLIE MARES MD Ferrous Sulfate (Ferrous Sulfate) 325 Mg Tablet, 325 MG PO DAILY for Iron deficiency anemia , (Reported) Entered as Reported by: NATIVIDAD RODRIGUEZ RN on 10/13/18130 Last Action: Continued on 11/13/181804 by ALLIE MARES MD Fluticasone Propionate (Fluticasone Propionate Nasal [place]) 16 Gm [place].susp, 2 SPRAY NS DAILY for other, #1 Ref 11 (Reported) Entered as Reported by: NBA NELSON on 11/13/181449 Last Action: Continued on 11/13/181804 by ALLIE MARES MD Hydralazine Hcl (Hydralazine Hcl) 50 Mg Tablet, 50 MG PO TID for htn for 30 Days, #90 Prescribed by: ALLIE MARES MD on 11/16/18 0742 Loratadine (Loratadine) 10 Mg Tablet, 1 TAB PO DAILY for other, #30 Ref 5 (Reported) Entered as Reported by: NBA NELSON on 11/13/181449 Last Action: Converted on 11/13/181804 by ALLIE MARES MD Losartan/Hydrochlorothiazide (Losartan-Hctz 50-12.5 Mg Tab) 1 Each Tablet, 1 TAB PO DAILY for Hypertension, #30 Ref 5 (Reported) Entered as Reported by: Radha Finley RN on 11/04/182033 Last Action: Converted on 11/13/181804 by ALLIE MARES MD Meloxicam (Meloxicam) 15 Mg Tablet, 15 MG PO DAILY for arthritis pain , (Reported) Entered as Reported by: NATIVIDAD RODRIGUEZ RN on 10/13/18130 Last Action: Converted on 11/13/181804 by ALLIE MARES MD Metoprolol Succinate (Metoprolol Succinate ( Xl )) 200 Mg Tab.er.24h, 1 TAB PO HS for Hypertension, #30 Ref 5 (Reported) Entered as Reported by: Radha Finley RN on 11/04/182033 Last Action: Converted on 11/13/181804 by ALLIE MARES MD Multivitamin (Multi-Day Vitamins) 1 Each Tablet, 1 TAB PO DAILY, #30 (Reported) Entered as Reported by: JULIET SNOW on 04/14/16 1406 Last Action: Reviewed on 11/13/18 144 by NBA NELSON Nystatin (Nystatin) 100,000 Unit/1 Ml Oral.susp, 5 ML PO QID for thrush for 14 Days, #200 Prescribed by: ALLIE MARES MD on 11/16/18 0742 Potassium Chloride (Potassium Chloride) 20 Meq Tablet.er, 20 MEQ PO DAILY for supplement, (Reported) Entered as Reported by: Radha Finley RN on 11/04/182057 Last Action: Converted on 11/13/181804 by ALLIE MARES MD Ranitidine Hcl (Ranitidine Hcl) 150 Mg Tablet, 150 MG PO BID for Gastroesophageal reflux , (Reported) Entered as Reported by: Radha Finley RN on 11/04/182100 Last Action: Converted on 11/13/181804 by ALLIE MARES MD Scheduled PRN Hydroxyzine Pamoate (Vistaril) 25 Mg Capsule, 25 MG PO PRN PRN for cramping , (Reported) Entered as Reported by: NATIVIDAD RODRIGUEZ RN on 10/13/18130 Last Action: Converted on 11/13/181804 by ALLIE MARES MD Ondansetron (Ondansetron Odt) 4 Mg Tab.rapdis, 1 TAB PO PRN Q4HRS PRN for NAUSEA, #16 (Reported) Entered as Reported by: Radha Finley RN on 11/04/182033 Last Action: Continued on 11/13/181804 by ALLIE MARES MD Sumatriptan Succinate (Imitrex) 50 Mg Tablet, 50 MG PO ONCE PRN for MIGRAINE HEADACHE, (Reported) Entered as Reported by: NATIVIDAD RODRIGUEZ RN on 10/13/18130 Last Action: HELD on 11/13/181804 by ALLIE MARES MD [guaiFENesin/CODEINE 100mg/10mg] 5 ML LIQUID, 5 ML PO PRN Q6HRS PRN for COUGH for 7 Days Prescribed by: ALLIE MARES MD on 11/16/18 0742 Discontinued Medications Hydralazine Hcl (Hydralazine Hcl) 50 Mg Tablet, 1 TAB PO DAILY for Hypertension, #90 Ref 5 (Reported) Entered as Reported by: Radha Finley RN on 11/04/182057 Last Action: Converted on 11/13/181804 by MD SUZAN NAVA MISTEE M MD November 16, 2018 07:44
[2018-11-16] MEDS: POTASSIUM CHLORIDE 20 MEQ TABLET.ER. PO SCH (08:00)
[2018-11-16] MEDS: LOSARTAN POTASSIUM 50 MG TABLET. PO SCH (08:03)
[2018-11-16] MEDS: FERROUS SULFATE 325 MG TABLET. PO SCH (08:03)
[2018-11-16] MEDS: BUDESONIDE 0.5 MG/2 ML NEBU. NEB SCH (08:03)
[2018-11-16] MEDS: ALBUTEROL SULFATE 2.5 MG/3 ML NEBU. NEB SCH (08:03)
[2018-11-16 08:04] VITALS: BP 169/99
[2018-11-16] MEDS: hydroCHLOROthiazide 12.5 MG CAPSULE PO SCH (08:04)
[2018-11-16] MEDS: ARIPiprazole 5 MG TABLET PO SCH (08:04)
[2018-11-16] MEDS: amLODIPine BESYLATE 10 MG TABLET PO SCH (08:04)
[2018-11-16] MEDS: METOPROLOL SUCC 24HR ER 100 MG TAB.ER.24H. PO SCH (08:04)
[2018-11-16] MEDS: PANTOPRAZOLE 40 MG TABLET.DR. PO SCH (08:04)
[2018-11-16] MEDS: EZETIMIBE 10 MG TABLET. PO SCH (08:04)
[2018-11-16] MEDS: ENOXAPARIN 40 MG/0.4 ML SYRINGE. SQ SCH (08:05)
[2018-11-16] MEDS: ALLOPURINOL 100 MG TABLET. PO SCH (08:05)
[2018-11-16] MEDS: MELOXICAM 7.5 MG TABLET PO SCH (08:05)
[2018-11-16] MEDS: INSULIN LISPRO 300 UNITS/3 ML INSULN.PEN. SQ SCH (08:06)
[2018-11-16] MEDS: FLUTICASONE 50MCG/NASAL SPRAY 16GM BOTTLE. NS SCH (08:07)
[2018-11-16] MEDS: COLCHICINE 0.6 MG TABLET PO SCH (08:08)
--- NOTE | 2018-11-16 08:35 | RAD ---
AP chest. HISTORY: Rhonchi AP view was taken of the chest. There is blunting of the right costophrenic angle possible small right effusion. There are no new infiltrates. 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 IMPRESSION: 1. Possible small right effusion. 2. No new infiltrates. Electronically signed by: Urbano Khoury MD (11/16/2018 8:32 AM) [facility]
--- NOTE | 2018-11-16 09:18 | NUR ---
Discharge Note: PT DISCHARGED HOME WITH SELF CARE, PT LEFT VIA PRIVATE VEHICLE WITH DAUGHTER AT 0915, PT STABLE UPON DISCHARGE, PT PIV REMOVED WITHOUT COMPLICATIONS FROM L FA, BANDAGE APPLIED. PT EDUCATED TO MAKE APPOINTMENT WITH DR. MARES TO FOLLOW-UP IN OFFICE ON Monday11/20/18. PT EDUCATED ABOUT MEDICATIONS, DISCHARGE INSTRUCTIONS, AND EDUCATIONAL MATERIAL FOR ASTHMA PREVENTION AND PNEUMONIA, NO CONCERNS VOICED. CALDERON YAP Discharge instructions and discharge home medications reviewed with Patient and a copy given. All questions have been answered and understanding verbalized.
== END 2018-11-16 09:22 | disposition home or self-care (01) | DRG 202 ==
LOC: ER 07:38 → 6 SOUTH 11:14 → UNDOADMOB 11:14 → 6 SOUTH 15:00 → OBSVTOIN 15:00
PROVIDERS: ADMIT Family Medicine; ATTEND Family Medicine
DX: J45.901 Unspecified asthma with (acute) exacerbation (principal); J44.1 Chronic obstructive pulmonary disease with (acute) exacerbation; I50.30 Unspecified diastolic (congestive) heart failure; I13.0 Hypertensive heart and chronic kidney disease with heart failure and stage 1 through stage 4 chronic kidney disease, or unspecified chronic kidney disease; E44.0 Moderate protein-calorie malnutrition; J44.0 Chronic obstructive pulmonary disease with (acute) lower respiratory infection; B37.0 Candidal stomatitis; E87.2 Acidosis; N18.9 Chronic kidney disease, unspecified; K57.90 Diverticulosis of intestine, part unspecified, without perforation or abscess without bleeding; E11.22 Type 2 diabetes mellitus with diabetic chronic kidney disease; E78.00 Pure hypercholesterolemia, unspecified; E78.5 Hyperlipidemia, unspecified; F17.210 Nicotine dependence, cigarettes, uncomplicated; F32.9 Major depressive disorder, single episode, unspecified; F41.9 Anxiety disorder, unspecified; G43.909 Migraine, unspecified, not intractable, without status migrainosus; M10.9 Gout, unspecified; M19.90 Unspecified osteoarthritis, unspecified site; K21.9 Gastro-esophageal reflux disease without esophagitis; Z79.51 Long term (current) use of inhaled steroids; Z79.899 Other long term (current) drug therapy; Z82.49 Family history of ischemic heart disease and other diseases of the circulatory system; Z83.3 Family history of diabetes mellitus; Z90.49 Acquired absence of other specified parts of digestive tract; Z90.710 Acquired absence of both cervix and uterus; Z82.5 Family history of asthma and other chronic lower respiratory diseases; Z68.33 Body mass index [BMI] 33.0-33.9, adult; T38.0X5A Adverse effect of glucocorticoids and synthetic analogues, initial encounter; E11.65 Type 2 diabetes mellitus with hyperglycemia
CPT/HCPCS: 36415; 71045; 80048; 80053; 80307; 82962; 83605; 83880; 84484; 85007; 85025; 87040; 93005; 94640; 94760; 96365; J0360; J1650; J1815; J1956; J2930; J7030; J7512; J7613; J7620; J7626; 99285-25

== ENCOUNTER 2018-12-09 07:06 | Emergency (ER) | payer MEDICAID, OTHER ==
[~2018-12-09] VITALS: Ht 162.6 cm; Wt 81.6 kg
[~2018-12-09 07:06] MED LIST changes: +FLUT16SP NS; +NYST100054 PO; +guaiFENesin/CODEINE 100mg/10mg PO
[2018-12-09] MEDS ORDERED: ONDANSETRON PF 4 MG/2 ML VIAL. IV ONE (07:45)
[2018-12-09] MEDS ORDERED: fentaNYL PF VIAL 100 MCG/2 ML VIAL IV ONE (07:45)
[2018-12-09] MEDS ORDERED: IV NORMAL SALINE 1000ML BAG 1,000 ML IV ONE (07:45)
[2018-12-09 08:08] LABS: BASO # 0.1 x10^3/uL (0.0-0.2); BASO % 1 % (0-3); EOS # 0.1 x10^3/uL (0.0-0.7); EOS % 2 % (0-3); HEMATOCRIT 43.3 % (36.0-47.0); HEMOGLOBIN 14.8 g/dL (12.0-15.5); LYMPH # 1.8 x10^3/uL (1.0-4.8); LYMPH % 27 % (24-48); MEAN CORPUSCULAR HEMOGLOBIN 30 pg (25-35); MEAN CORPUSCULAR HGB CONC 34 g/dL (31-37); MEAN CORPUSCULAR VOLUME 89 fL (79-100); MONO # 0.6 x10^3/uL (0.0-1.1); MONO % 9 % (0-9); NEUT # 4.2 x10^3uL (1.8-7.7); NEUT % 62 % (31-73); PLATELET COUNT 274 x10^3/uL (140-400); RED BLOOD COUNT 4.87 x10^6/uL (3.50-5.40); RED CELL DISTRIBUTION WIDTH 14.8 % (11.5-14.5); WHITE BLOOD COUNT 6.8 x10^3/uL (4.0-11.0)
[2018-12-09 08:12] LABS: BILIRUBIN,URINE SMALL (NEG); CLARITY,URINE TURBID; COLOR,URINE AMBER; NITRITE,URINE NEGATIVE (NEG); PROTEIN,URINE 30 mg/dL (NEG-TRACE)
[2018-12-09 08:13] LABS: CALCIUM 9.5 mg/dL (8.5-10.1); CREATININE 0.7 mg/dL (0.6-1.0); GFR 108.5; POTASSIUM 3.5 mmol/L (3.5-5.1)
[2018-12-09 08:19] LABS: ALBUMIN 3.1 g/dL (3.4-5.0); ALBUMIN/GLOBULIN RATIO 0.7 (1.0-1.7); TOTAL BILIRUBIN 0.8 mg/dL (0.2-1.0); TOTAL PROTEIN 7.3 g/dL (6.4-8.2)
[2018-12-09 08:34] LABS: AMORPHOUS SEDIMENT,UR PRESENT /HPF; BACTERIA,URINE FEW /HPF (0-FEW); RBC,URINE 0 /HPF (0-2); SQUAMOUS EPITHELIAL CELL,UR MANY /LPF
--- NOTE | 2018-12-09 08:49 | PHYS DOC ---
Past Medical History Past Medical History: Asthma, COPD, Diabetes-Type II, Hypertension Additional Past Medical Histor: Lupus Past Surgical History: Appendectomy, Hysterectomy, Other Additional Past Surgical Histo: BACK SURGERY Alcohol Use: Rarely Drug Use: Marijuana Adult General Chief Complaint Chief Complaint: ABDOMINAL PAIN HPI HPI Patient is a 48 year old f with cc of abdominal pian epigastric. nonradiating . has no tried anything for relief. Mild to moderate in nature worse with eating did have some intermittent vomiting she just finished prednisone for COPD her COPD is actually getting much better she tells me overall. Of note the heart rate was in the 1 teens and went down to 105 or 108 on my reevaluation Review of Systems Review of Systems Constitutional: Denies fever or chills [] Eyes: Denies change in visual acuity, redness, or eye pain [] HENT: Denies nasal congestion or sore throat [] Respiratory: Cardiovascular: No additional information not addressed in HPI [] Integument: Denies rash or skin lesions [] Neurologic: Denies headache, focal weakness or sensory changes [] Endocrine: Denies polyuria or polydipsia [] All other systems were reviewed and found to be within normal limits, except as documented in this note. Current Medications Current Medications Current Medications Medications (Trade) Dose Ordered Sig/Nona Start Time Stop Time Status Last Admin Dose Admin Fentanyl Citrate (Fentanyl 2ml Vial) 50 mcg 1X ONCE 12/09/18 07:45 12/09/18 07:46 DC 12/09/18 08:01 50 MCG Ondansetron HCl (Zofran) 4 mg 1X ONCE 12/09/18 07:45 12/09/18 07:46 DC 12/09/18 07:51 4 MG Sodium Chloride 1,000 ml @ 1,000 mls/hr 1X ONCE 12/09/18 07:45 12/09/18 08:44 DC 12/09/18 07:46 1,000 MLS/HR Allergies Allergies Allergies Coded Allergies Type Severity Reaction Last Updated Verified lisinopril Allergy Intermediate COUGH 06/13/18 Yes I S O L A T I O N *CONTACT* Allergy Unknown 06/13/18 Yes Physical Exam Physical Exam Constitutional: Well developed, well nourished, no acute distress, non-toxic appearance. [] HENT: Normocephalic, atraumatic, bilateral external ears normal, oropharynx moist, no oral exudates, nose normal. [] Eyes: PERRLA, Neck: Normal range of motion, no tenderness, supple, no stridor. [] Cardiovascular:Heart rate regular rhythm, no murmur [] Lungs & Thorax: decreased bibasilar sounds. Abdomen: Bowel sounds normal, soft, epigastric tenderness, no masses, no pulsatile masses. [] Skin: Warm, dry, no erythema, no rash. [] Back: No tenderness, no CVA tenderness. [] Extremities: No tenderness, no cyanosis, no clubbing, ROM intact, no edema. [] Neurologic: Alert and oriented X 3, normal motor function, normal sensory function, no focal deficits noted. [] Current Patient Data Vital Signs Vital Signs Date Time Temp Pulse Resp B/P (MAP) Pulse Ox O2 Delivery O2 Flow Rate FiO2 12/09/18 08:01 20 100 Nasal Cannula 2.0 12/09/18 07:14 98.3 69 155/95 (115) 98.3 Lab Values Laboratory Tests Test 12/09/18 07:15 12/09/18 07:30 Urine Collection Type Unknown Urine Color Merissa Urine Clarity Turbid Urine pH 6.0 Urine Specific [place] 1.025 Urine Protein 30 mg/dL (NEG-TRACE) Urine Glucose (UA) Negative mg/dL (NEG) Urine Ketones (Stick) Trace mg/dL (NEG) Urine Blood Negative (NEG) Urine Nitrite Negative (NEG) Urine Bilirubin Small (NEG) Urine Urobilinogen Dipstick 1.0 mg/dL (0.2 mg/dL) Urine Leukocyte Esterase Moderate (NEG) Urine RBC 0 /HPF (0-2) Urine WBC 1-4 /HPF (0-4) Urine Squamous Epithelial Cells Many /LPF Urine Amorphous Sediment Present /HPF Urine Bacteria Few /HPF (0-FEW) Urine Mucus Slight /LPF White Blood Count 6.8 x10^3/uL (4.0-11.0) Red Blood Count 4.87 x10^6/uL (3.50-5.40) Hemoglobin 14.8 g/dL (12.0-15.5) Hematocrit 43.3 % (36.0-47.0) Mean Corpuscular Volume 89 fL (79-100) Mean Corpuscular Hemoglobin 30 pg (25-35) Mean Corpuscular Hemoglobin Concent 34 g/dL (31-37) Red Cell Distribution Width 14.8 % (11.5-14.5) H Platelet Count 274 x10^3/uL (140-400) Neutrophils (%) (Auto) 62 % (31-73) Lymphocytes (%) (Auto) 27 % (24-48) Monocytes (%) (Auto) 9 % (0-9) Eosinophils (%) (Auto) 2 % (0-3) Basophils (%) (Auto) 1 % (0-3) Neutrophils # (Auto) 4.2 x10^3uL (1.8-7.7) Lymphocytes # (Auto) 1.8 x10^3/uL (1.0-4.8) Monocytes # (Auto) 0.6 x10^3/uL (0.0-1.1) Eosinophils # (Auto) 0.1 x10^3/uL (0.0-0.7) Basophils # (Auto) 0.1 x10^3/uL (0.0-0.2) Sodium Level 137 mmol/L (136-145) Potassium Level 3.5 mmol/L (3.5-5.1) Chloride Level 99 mmol/L (98-107) Carbon Dioxide Level 27 mmol/L (21-32) Anion Gap 11 (6-14) Blood Urea Nitrogen 5 mg/dL (7-20) L Creatinine 0.7 mg/dL (0.6-1.0) Estimated GFR (Cockcroft-Gault) 108.5 BUN/Creatinine Ratio 7 (6-20) Glucose Level 124 mg/dL (70-99) H Calcium Level 9.5 mg/dL (8.5-10.1) Total Bilirubin 0.8 mg/dL (0.2-1.0) Aspartate Amino Transferase (AST) 67 U/L (15-37) H Alanine Aminotransferase (ALT) 63 U/L (14-59) H Alkaline Phosphatase 98 U/L (46-116) Troponin I Quantitative < 0.017 ng/mL (0.000-0.055) Total Protein 7.3 g/dL (6.4-8.2) Albumin 3.1 g/dL (3.4-5.0) L Albumin/Globulin Ratio 0.7 (1.0-1.7) L Lipase 95 U/L (73-393) Laboratory Tests 12/09/18 07:30 Laboratory Tests 12/09/18 07:30 EKG EKG Sinus tach rate 110 no ischemic changes noted interpreted by me time of encounter.[] Radiology/Procedures Radiology/Procedures [] Impressions: IMPRESSION: Increased liver echogenicity may represents steatosis. Gallbladder sonographically negative. Electronically signed by: Nahum Richardson MD (12/09/2018 9:30 AM) [facility] DICTATED and SIGNED BY: NAHUM RICHARDSON MD DATE: 12/09/18929 Course & Med Decision Making Course & Med Decision Making Pertinent Labs and Imaging studies reviewed. (See chart for details) []48-year-old female history of COPD multiple other medical problems recent prednisone use presenting with epigastric pain ultrasound was negative for biliary disease labs are stable mild elevation in LFTs is probably due to hepatic steatosis Patient felt much better in the emergency room she said she was hungry and she wanted to go home omeprazole given follow-up precautions provided Dragon Disclaimer Dragon Disclaimer This electronic medical record was generated, in whole or in part, using a voice recognition dictation system. Departure Departure Impression: Primary Impression: Epigastric pain Disposition: HOME, SELF-CARE Condition: STABLE Referrals: ALLIE MARES MD (PCP) Scripts Omeprazole (OMEPRAZOLE) 20 Mg Tablet.dr 1 TAB PO DAILY, #30 TAB 0 Refills Prov: AUSTIN BEDOYA MD 12/09/18 AUSTIN BEDOYA MD Dec 09, 2018 08:49
--- NOTE | 2018-12-09 09:33 | RAD ---
Limited abdomen ultrasound HISTORY: Right upper quadrant abdominal pain. FINDINGS: Imaged pancreas at the proximal tail and upper abdominal aorta and IVC are normal. The distal pancreatic tail and the lower abdominal segments of the vessels are obscured by bowel gas shadowing. No gallstones or inflammatory change of the gallbladder. No biliary ductal dilation the common body diameter is 4 mm. Homogeneous increased liver echogenicity, likely steatosis. Hepatopedal portal vein blood flow is present. No liver mass, surface irregularity or nodularity documented. There may be hepatomegaly versus anatomic variability of a tall body stature, with a right hepatic lobe length of 18.1 cm. Right renal length 10.9 cm. No right renal mass, calculus or hydronephrosis is evident. Bowel gas shadowing limits visualization of the right renal lower pole. Spleen and left kidney were not evaluated. IMPRESSION: Increased liver echogenicity may represents steatosis. Gallbladder sonographically negative. Electronically signed by: Jason Richardson MD (12/09/2018 9:30 AM) [facility]
[2018-12-09 09:48] VITALS: BP 152/100
[2018-12-09] MEDS ORDERED: OMEP20TA8 PO (09:51)
--- NOTE | 2018-12-10 06:49 | EKG ---
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
== END 2018-12-09 09:54 | disposition home or self-care (01) ==
LOC: ER 07:06
DX: R10.13 Epigastric pain (principal); R11.10 Vomiting, unspecified; J44.9 Chronic obstructive pulmonary disease, unspecified; E11.9 Type 2 diabetes mellitus without complications; M32.9 Systemic lupus erythematosus, unspecified; I10 Essential (primary) hypertension; Z90.710 Acquired absence of both cervix and uterus; Z90.89 Acquired absence of other organs; Z98.890 Other specified postprocedural states; Z91.041 Radiographic dye allergy status; Z88.8 Allergy status to other drugs, medicaments and biological substances
CPT/HCPCS: 36415; 76705; 80053; 81001; 83690; 84484; 85025; 87086; 93005; 96361; 96374; 96375; 99285; J2405; J3010; J7030

== ENCOUNTER 2018-12-18 12:31 | Emergency (ER) | payer MEDICAID ==
[~2018-12-18] VITALS: Ht 162.6 cm; Wt 81.6 kg
[2018-12-18] MEDS ORDERED: IV NORMAL SALINE 500ML BAG 500 ML IV ONE (14:30)
--- NOTE | 2018-12-18 14:38 | PHYS DOC ---
Past Medical History Past Medical History: Asthma, COPD, Diabetes-Type II, Hypertension Additional Past Medical Histor: Lupus (NIMCO BROWN APRN) Past Surgical History: Appendectomy, Hysterectomy, Other Additional Past Surgical Histo: BACK SURGERY (NIMCO BROWN APRN) Alcohol Use: Rarely Drug Use: Marijuana (NIMCO BROWN APRN) Adult General Chief Complaint Chief Complaint: ABDOMINAL PAIN HPI HPI 48-year-old female who is well known to the ER presents today for complaints of 6 day history of mid umbilical abdominal pain. Patient states she has had intermittent nausea and feels she might be dehydrated from lack of fluid intake although she reports she has had no vomiting or diarrhea episodes. Patient states pain is intermittent denies distention or rigidity and abdomen. Patient denies fever, urinary symptoms, chest pain, or shortness of air. (NIMCO BROWN APRN) Review of Systems Review of Systems Constitutional: Denies fever or chills [] Eyes: Denies change in visual acuity, redness, or eye pain [] HENT: Denies nasal congestion or sore throat [] Respiratory: Denies cough or shortness of breath [] Cardiovascular: Denies CP/palpitations GI: Denies vomiting, bloody stools or diarrhea. Reports mid umbilical abd pain w/intermittent nausea : Denies dysuria or hematuria [] Musculoskeletal: Denies back pain or joint pain [] Integument: Denies rash or skin lesions [] Neurologic: Denies headache, focal weakness or sensory changes. Denies dizziness Endocrine: Denies polyuria or polydipsia [] All other systems were reviewed and found to be within normal limits, except as documented in this note. (NIMCO BROWN APRN) Current Medications Current Medications Current Medications Medications (Trade) Dose Ordered Sig/Nona Start Time Stop Time Status Last Admin Dose Admin Dicyclomine HCl (Bentyl) 20 mg 1X ONCE 12/18/18 14:45 12/18/18 14:46 DC 12/18/18 14:38 20 MG Fentanyl Citrate (Fentanyl 2ml Vial) 25 mcg 1X ONCE 12/18/18 17:15 12/18/18 17:16 DC 12/18/18 17:23 25 MCG Info (CONTRAST GIVEN -- Rx MONITORING) 1 each PRN DAILY PRN 12/18/18 18:30 12/20/18 18:29 Iohexol (Omnipaque 300 Mg/ml) 75 ml 1X ONCE 12/18/18 18:30 12/18/18 18:31 DC 12/18/18 18:27 75 ML Magnesium Sulfate 50 ml @ 25 mls/hr 1X ONCE 12/18/18 17:00 12/18/18 18:59 DC 12/18/18 17:24 25 MLS/HR Ondansetron HCl (Zofran) 4 mg 1X ONCE 12/18/18 14:45 12/18/18 14:46 DC 12/18/18 14:38 4 MG Potassium Chloride (KCl Oral Soln) 40 meq 1X ONCE 12/18/18 18:00 12/18/18 18:01 DC 12/18/18 17:47 40 MEQ Potassium Chloride (Klor-Con) 40 meq 1X ONCE 12/18/18 17:30 12/18/18 17:33 DC 12/18/18 17:22 40 MEQ Sodium Chloride 500 ml @ 500 mls/hr 1X ONCE 12/18/18 14:30 12/18/18 15:29 DC 12/18/18 14:30 500 MLS/HR (MAURISIO PIRES APRN) Allergies Allergies Allergies Coded Allergies Type Severity Reaction Last Updated Verified lisinopril Allergy Intermediate COUGH 06/13/18 Yes I S O L A T I O N *CONTACT* Allergy Unknown 06/13/18 Yes (MAURISIO PRIES APRN) Physical Exam Physical Exam Constitutional: Well developed, well nourished, no acute distress, non-toxic appearance. [] HENT: Normocephalic, atraumatic, oropharynx moist, nose normal. [] Eyes: Pupils equal, conjunctiva normal, no discharge. [] Neck: Normal range of motion, no tenderness, supple, no stridor. [] Cardiovascular: Tachycardic heart rate regular rhythm- 105 during exam with pt in prior ER visits with higher HR, no murmur [] Lungs & Thorax: Bilateral breath sounds clear to auscultation- resp. equal/nonlabored Abdomen: Bowel sounds normal, soft, no distention/rigidity, tender mid um bilical, no masses, no pulsatile masses. [] Skin: Warm, dry, no erythema, no rash. [] Back: No tenderness, no CVA tenderness. [] Extremities: No tenderness, no cyanosis, no clubbing, ROM intact, no edema. [] Neurologic: Alert and oriented X 3, normal motor function, normal sensory function, no focal deficits noted. [] Psychologic: Affect normal, judgement normal, mood normal. [] (REFFITT,NIMCO [place] APRN) Current Patient Data Vital Signs Vital Signs Date Time Temp Pulse Resp B/P (MAP) Pulse Ox O2 Delivery O2 Flow Rate FiO2 12/18/18 17:23 16 99 Room Air 12/18/18 13:24 98.7 106 142/93 (109) 98.7 (MAURISIO PIRES APRN) Lab Values Laboratory Tests Test 12/18/18 15:15 12/18/18 16:25 White Blood Count 6.0 x10^3/uL (4.0-11.0) Red Blood Count 4.30 x10^6/uL (3.50-5.40) Hemoglobin 13.0 g/dL (12.0-15.5) Hematocrit 38.1 % (36.0-47.0) Mean Corpuscular Volume 89 fL (79-100) Mean Corpuscular Hemoglobin 30 pg (25-35) Mean Corpuscular Hemoglobin Concent 34 g/dL (31-37) Red Cell Distribution Width 15.2 % (11.5-14.5) H Platelet Count 359 x10^3/uL (140-400) Neutrophils (%) (Auto) 53 % (31-73) Lymphocytes (%) (Auto) 34 % (24-48) Monocytes (%) (Auto) 9 % (0-9) Eosinophils (%) (Auto) 3 % (0-3) Basophils (%) (Auto) 1 % (0-3) Neutrophils # (Auto) 3.2 x10^3uL (1.8-7.7) Lymphocytes # (Auto) 2.1 x10^3/uL (1.0-4.8) Monocytes # (Auto) 0.6 x10^3/uL (0.0-1.1) Eosinophils # (Auto) 0.2 x10^3/uL (0.0-0.7) Basophils # (Auto) 0.1 x10^3/uL (0.0-0.2) Maternal Serum HCG Beta Subunit 1 mIU/mL (0-5) Sodium Level 140 mmol/L (136-145) Potassium Level 3.2 mmol/L (3.5-5.1) L Chloride Level 104 mmol/L (98-107) Carbon Dioxide Level 27 mmol/L (21-32) Anion Gap 9 (6-14) Blood Urea Nitrogen 7 mg/dL (7-20) Creatinine 0.8 mg/dL (0.6-1.0) Estimated GFR (Cockcroft-Gault) 93.0 BUN/Creatinine Ratio 9 (6-20) Glucose Level 85 mg/dL (70-99) Calcium Level 8.5 mg/dL (8.5-10.1) Magnesium Level 1.4 mg/dL (1.8-2.4) L Total Bilirubin 0.5 mg/dL (0.2-1.0) Aspartate Amino Transferase (AST) 45 U/L (15-37) H Alanine Aminotransferase (ALT) 35 U/L (14-59) Alkaline Phosphatase 86 U/L (46-116) Troponin I Quantitative < 0.017 ng/mL (0.000-0.055) Total Protein 7.0 g/dL (6.4-8.2) Albumin 2.5 g/dL (3.4-5.0) L Albumin/Globulin Ratio 0.6 (1.0-1.7) L Lipase 73 U/L (73-393) Urine Collection Type Unknown Urine Color Merissa Urine Clarity Clear Urine pH 6.0 Urine Specific [place] 1.025 Urine Protein Negative mg/dL (NEG-TRACE) Urine Glucose (UA) Negative mg/dL (NEG) Urine Ketones (Stick) Negative mg/dL (NEG) Urine Blood Negative (NEG) Urine Nitrite Negative (NEG) Urine Bilirubin Small (NEG) Urine Urobilinogen Dipstick 1.0 mg/dL (0.2 mg/dL) Urine Leukocyte Esterase Small (NEG) Urine RBC 1-2 /HPF (0-2) Urine WBC 1-4 /HPF (0-4) Urine Squamous Epithelial Cells Mod /LPF Urine Bacteria Few /HPF (0-FEW) Urine Mucus Marked /LPF Laboratory Tests 12/18/18 15:15 Laboratory Tests 12/18/18 15:15 (MAURISIO PIRES APRN) Lab Values Laboratory Tests Test 12/18/18 15:15 12/18/18 16:25 White Blood Count 6.0 x10^3/uL (4.0-11.0) Red Blood Count 4.30 x10^6/uL (3.50-5.40) Hemoglobin 13.0 g/dL (12.0-15.5) Hematocrit 38.1 % (36.0-47.0) Mean Corpuscular Volume 89 fL (79-100) Mean Corpuscular Hemoglobin 30 pg (25-35) Mean Corpuscular Hemoglobin Concent 34 g/dL (31-37) Red Cell Distribution Width 15.2 % (11.5-14.5) H Platelet Count 359 x10^3/uL (140-400) Neutrophils (%) (Auto) 53 % (31-73) Lymphocytes (%) (Auto) 34 % (24-48) Monocytes (%) (Auto) 9 % (0-9) Eosinophils (%) (Auto) 3 % (0-3) Basophils (%) (Auto) 1 % (0-3) Neutrophils # (Auto) 3.2 x10^3uL (1.8-7.7) Lymphocytes # (Auto) 2.1 x10^3/uL (1.0-4.8) Monocytes # (Auto) 0.6 x10^3/uL (0.0-1.1) Eosinophils # (Auto) 0.2 x10^3/uL (0.0-0.7) Basophils # (Auto) 0.1 x10^3/uL (0.0-0.2) Sodium Level 140 mmol/L (136-145) Potassium Level 3.2 mmol/L (3.5-5.1) L Chloride Level 104 mmol/L (98-107) Carbon Dioxide Level 27 mmol/L (21-32) Anion Gap 9 (6-14) Blood Urea Nitrogen 7 mg/dL (7-20) Creatinine 0.8 mg/dL (0.6-1.0) Estimated GFR (Cockcroft-Gault) 93.0 BUN/Creatinine Ratio 9 (6-20) Glucose Level 85 mg/dL (70-99) Calcium Level 8.5 mg/dL (8.5-10.1) Magnesium Level 1.4 mg/dL (1.8-2.4) L Total Bilirubin 0.5 mg/dL (0.2-1.0) Aspartate Amino Transferase (AST) 45 U/L (15-37) H Alanine Aminotransferase (ALT) 35 U/L (14-59) Alkaline Phosphatase 86 U/L (46-116) Troponin I Quantitative < 0.017 ng/mL (0.000-0.055) Total Protein 7.0 g/dL (6.4-8.2) Albumin 2.5 g/dL (3.4-5.0) L Albumin/Globulin Ratio 0.6 (1.0-1.7) L Lipase 73 U/L (73-393) Urine Collection Type Unknown Urine Color Merissa Urine Clarity Clear Urine pH 6.0 Urine Specific [place] 1.025 Urine Protein Negative mg/dL (NEG-TRACE) Urine Glucose (UA) Negative mg/dL (NEG) Urine Ketones (Stick) Negative mg/dL (NEG) Urine Blood Negative (NEG) Urine Nitrite Negative (NEG) Urine Bilirubin Small (NEG) Urine Urobilinogen Dipstick 1.0 mg/dL (0.2 mg/dL) Urine Leukocyte Esterase Small (NEG) Urine RBC 1-2 /HPF (0-2) Urine WBC 1-4 /HPF (0-4) Urine Squamous Epithelial Cells Mod /LPF Urine Bacteria Few /HPF (0-FEW) Urine Mucus Marked /LPF Laboratory Tests 12/18/18 15:15 Laboratory Tests 12/18/18 15:15 (NIMCO BROWN APRN) EKG EKG EKG obtained 12/16/18 at [address] Bear Sinus rhythm Rate 99 No STEMI (NIMCO BROWN APRN) Radiology/Procedures Radiology/Procedures [] (NIMCO BROWN APRN) Radiology/Procedures PATIENT: CALDERON YAP DACCOUNT: [id number]#: [id number] : 1970 LOCATION: ER AGE: 48 SEX: F EXAM STATUS: REG ER ORD. PHYSICIAN: NIMCO BROWN APRN REASON: mid abd pain PROCEDURE: CT ABD PELV W/ IV CONTRST ONLY CT abdomen and pelvis with contrast. HISTORY: Mid abdominal pain CT scan scan of the abdomen pelvis was done using 75 mL Omnipaque 300 contrast. Comparison is made with a study from December 2016. Lung bases are clear except for linear atelectasis. There is no effusion. There is diffuse fatty change in the liver without a focal lesion. Spleen and adrenal glands are normal. Pancreas is normal. There is no mass or hydronephrosis in the kidneys. There is no renal or ureteral calculus. There is no bowel obstruction or ascites or adenopathy. Patient's had a hysterectomy. IMPRESSION: 1. Diffuse fatty change in the liver without a focal lesion. 2. No renal or ureteral calculus noted. 3. No bowel obstruction or other acute finding. PQRS Compliance Statement: One or more of the following individualized dose reduction techniques were utilized for this examination: 1. Automated exposure control 2. Adjustment of the mA and/or kV according to patient size 3. Use of iterative reconstruction technique Electronically signed by: Urbano Khoury MD (12/18/2018 7:13 PM) [facility] DICTATED and SIGNED BY: URBANO KHOURY MD DATE: 12/18/181912 (MAURISIO PIRES APRN) Course & Med Decision Making Course & Med Decision Making Pertinent Labs and Imaging studies reviewed. (See chart for details) Pt lab came back with magnesium at 1.4 which is down from 1.6 on her 11/04/18 labs. 2 g IV magnesium ordered. K+ was 3.2- 40 meq K+ was ordered PO. Pt had x- ray obtained for ongoing abdominal pain which she reports is similar to her prior visits to the ER. Last ER visit patient had ultrasound with normal limits gallbladder on exam. With patient's magnesium level low EKG was obtained when no acute ST elevation or STEMI and troponin was negative. 1755: She was evaluated in the ER for complaints of ongoing abdominal pain which she had been evaluated in the ER for prior and reports similar pain during this visit. Patient had labs, x-ray, and EKG obtained. 1805: Patient's abdominal x-ray with report of "Mildly dilated small bowel in the midabdomen with an air-fluid level nonspecific from a localized ileus or mild obstruction" so will obtain a CT abd/pelvis for further eval. Pt's case was discussed with Maurisio Pires NP who will assume further care and disposition of pt. (JANETNIMCO APRN) Course & Med Decision Making Care of patient assumed at 1805. CT scan is negative. Will discharge as SHARONDA Anguiano and patient discussed. (MAURISIO PIRES APRN) Dragon Disclaimer Dragon Disclaimer This electronic medical record was generated, in whole or in part, using a voice recognition dictation system. (NIMCO BROWN APRN) Departure Departure Impression: Primary Impression: Abdominal pain Disposition: HOME, SELF-CARE Condition: STABLE Referrals: ALLIE MARES MD (PCP) Patient Instructions: Abdominal Pain (Nonspecific) Additional Instructions: Thank you for visiting [facility]. We appreciate you trusting us with your care. If any additional problems come up don't hesitate to return to visit us. Please follow up with your primary care provider so they can plan additional care if needed and know about the problem that you had. If symptoms worsen come back to the Emergency Department. Any concerning symptoms that start such as chest pain, shortness of Air, weakness or numbness on one side of the body, running high fevers or any other concerning symptoms return to the ER. Problem Qualifiers Primary Impression: Abdominal pain Abdominal location: generalized Qualified Codes: R10.84 - Generalized abdominal pain NIMCO BROWN APRN Dec 18, 2018 14:38 MAURISIO PIRES APRN Dec 18, 2018 19:28
[2018-12-18] MEDS ORDERED: ONDANSETRON PF 4 MG/2 ML VIAL. IV ONE (14:45)
[2018-12-18] MEDS ORDERED: DICYCLOMINE 20 MG/2 ML AMPUL. IM ONE (14:45)
[2018-12-18 15:46] LABS: BASO # 0.1 x10^3/uL (0.0-0.2); BASO % 1 % (0-3); EOS # 0.2 x10^3/uL (0.0-0.7); EOS % 3 % (0-3); HEMATOCRIT 38.1 % (36.0-47.0); LYMPH # 2.1 x10^3/uL (1.0-4.8); LYMPH % 34 % (24-48); MEAN CORPUSCULAR HEMOGLOBIN 30 pg (25-35); MEAN CORPUSCULAR HGB CONC 34 g/dL (31-37); MEAN CORPUSCULAR VOLUME 89 fL (79-100); MONO # 0.6 x10^3/uL (0.0-1.1); MONO % 9 % (0-9); NEUT # 3.2 x10^3uL (1.8-7.7); NEUT % 53 % (31-73); PLATELET COUNT 359 x10^3/uL (140-400); RED CELL DISTRIBUTION WIDTH 15.2 % (11.5-14.5)
[2018-12-18 16:12] LABS: CALCIUM 8.5 mg/dL (8.5-10.1); CREATININE 0.8 mg/dL (0.6-1.0); POTASSIUM 3.2 mmol/L (3.5-5.1)
[2018-12-18 16:18] LABS: ALBUMIN 2.5 g/dL (3.4-5.0); ALBUMIN/GLOBULIN RATIO 0.6 (1.0-1.7); MAGNESIUM 1.4 mg/dL (1.8-2.4); TOTAL BILIRUBIN 0.5 mg/dL (0.2-1.0)
[2018-12-18 16:41] LABS: BILIRUBIN,URINE SMALL (NEG); CLARITY,URINE CLEAR; COLOR,URINE AMBER; NITRITE,URINE NEGATIVE (NEG); PROTEIN,URINE NEGATIVE (NEG-TRACE)
[2018-12-18 16:51] LABS: BACTERIA,URINE FEW /HPF (0-FEW); SQUAMOUS EPITHELIAL CELL,UR MOD /LPF
[2018-12-18] MEDS ORDERED: MAGNESIUM SULFATE 2GM 50 ML IV ONE (17:00)
[2018-12-18] MEDS ORDERED: fentaNYL PF VIAL 100 MCG/2 ML VIAL IV ONE (17:15)
[2018-12-18] MEDS ORDERED: POTASSIUM CHLORIDE 20 MEQ TABLET.ER. PO ONE (17:30)
--- NOTE | 2018-12-18 17:51 | RAD ---
Three-view acute abdominal series. HISTORY: Mid abdominal pain 3 views were taken for an acute abdominal series. There is a nonspecific air-fluid level in a small bowel loop in the midabdomen. There is no free air noted. There is minimal linear scarring or atelectasis at the left costophrenic angle, lungs are otherwise clear. Heart is normal in size. IMPRESSION: 1. Mildly dilated small bowel in the midabdomen with an air-fluid level nonspecific from a localized ileus or mild obstruction. 2. No free air noted. 3. Minimal linear scarring or atelectasis left costophrenic angle without other infiltrates. Electronically signed by: Urbano Khoury MD (12/18/2018 5:48 PM) [facility]
--- NOTE | 2018-12-18 17:59 | EKG ---
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
[2018-12-18] MEDS ORDERED: POTASSIUM CHLORIDE 20 MEQ/15 ML ORAL LIQUID. PO ONE (18:00)
[2018-12-18] MEDS ORDERED: CONTRAST GIVEN. MC PRN (18:30)
[2018-12-18] MEDS ORDERED: IOHEXOL 300 MG/ML 100ML VIAL. IV ONE (18:30)
--- NOTE | 2018-12-18 19:16 | RAD ---
CT abdomen and pelvis with contrast. HISTORY: Mid abdominal pain CT scan scan of the abdomen pelvis was done using 75 mL Omnipaque 300 contrast. Comparison is made with a study from December 2016. Lung bases are clear except for linear atelectasis. There is no effusion. There is diffuse fatty change in the liver without a focal lesion. Spleen and adrenal glands are normal. Pancreas is normal. There is no mass or hydronephrosis in the kidneys. There is no renal or ureteral calculus. There is no bowel obstruction or ascites or adenopathy. Patient's had a hysterectomy. IMPRESSION: 1. Diffuse fatty change in the liver without a focal lesion. 2. No renal or ureteral calculus noted. 3. No bowel obstruction or other acute finding. PQRS Compliance Statement: One or more of the following individualized dose reduction techniques were utilized for this examination: 1. Automated exposure control 2. Adjustment of the mA and/or kV according to patient size 3. Use of iterative reconstruction technique Electronically signed by: Urbano Khoury MD (12/18/2018 7:13 PM) [facility]
[2018-12-18 19:18] VITALS: BP 121/80
== END 2018-12-18 20:13 | disposition home or self-care (01) ==
LOC: ER 12:31
DX: R10.33 Periumbilical pain (principal); R11.0 Nausea; J44.9 Chronic obstructive pulmonary disease, unspecified; E11.9 Type 2 diabetes mellitus without complications; I10 Essential (primary) hypertension; M32.9 Systemic lupus erythematosus, unspecified; Z90.89 Acquired absence of other organs; Z90.710 Acquired absence of both cervix and uterus; Z98.890 Other specified postprocedural states; Z91.041 Radiographic dye allergy status; Z88.8 Allergy status to other drugs, medicaments and biological substances
CPT/HCPCS: 36415; 74022; 74177; 80053; 81001; 83690; 83735; 84484; 84702; 85025; 87086; 93005; 96365; 96366; 96372; 96375; 99285; J0500; J2405; J3010; J3475; J7040; Q9967

== ENCOUNTER → 2019-01-07 | Day surgery (SDC) | payer MEDICAID ==
[~2019-01-07] MED LIST changes: +HYDROmorphone 2 MG/ML VIAL IV PRN; +IV RINGERS,LACTATED 1000ML 1,000 ML IV SCH; +LIDOCAINE 1% PF 2 ML VIAL. ID PRN; +MORPHINE SULFATE 2 MG/ML VIAL. IV PRN; +ONDANSETRON PF 4 MG/2 ML VIAL. IV PRN; -PANT40TA5 PO; +PANT40TA77 PO; +PROCHLORPERAZINE 10 MG/2 ML VIAL. IV PRN; +PROPOFOL 20 ML IV ONE; +fentaNYL PF VIAL 100 MCG/2 ML VIAL IV PRN
--- NOTE | 2019-01-07 13:01 | PDOC4 ---
PROCEDURE Procedure EGD Indication: Epigastric pain Meds: per anesthesia Findings: E--Multiple webs, proximal 1/3, some torn with scope passage. Still has pseudodiverticulosis with multiple openings distal 2/3. Irregular SQ junction c/w some reflux. G--Normal D--Normal to second portion. Rodolfo. well. IMP: Esophageal webs, likely scarring from prior severe esophagitis Pseudodiverticulosis of esophagus GERD REC: Continue PPI. Resume other meds. Schedule HIDA/GBEF; will have her call office. F/u in 2 weeks. KELLEN BURTON MD Jan 07, 2019 13:01
[2019-01-07 13:30] VITALS: BP 147/99
== END ==
LOC: ENDOS 12:12
PROVIDERS: ATTEND Internal Medicine Gastroenterology
DX: K21.0 Gastro-esophageal reflux disease with esophagitis (principal); K22.5 Diverticulum of esophagus, acquired; F32.9 Major depressive disorder, single episode, unspecified; E11.9 Type 2 diabetes mellitus without complications; J43.9 Emphysema, unspecified; F15.90 Other stimulant use, unspecified, uncomplicated; Z72.89 Other problems related to lifestyle; Z88.1 Allergy status to other antibiotic agents; Z90.710 Acquired absence of both cervix and uterus; Z98.890 Other specified postprocedural states; Z79.84 Long term (current) use of oral hypoglycemic drugs
CPT/HCPCS: 43235; J2704

== ENCOUNTER → 2019-01-15 | Outpatient (CLI) | payer MEDICAID ==
[2019-01-07 13:30] VITALS: BP 147/99
[~2019-01-15] VITALS: Ht 162.6 cm; Wt 72.6 kg
[~2019-01-15] MED LIST changes: -HYDROmorphone 2 MG/ML VIAL IV PRN; -IV RINGERS,LACTATED 1000ML 1,000 ML IV SCH; -LIDOCAINE 1% PF 2 ML VIAL. ID PRN; -MORPHINE SULFATE 2 MG/ML VIAL. IV PRN; -ONDANSETRON PF 4 MG/2 ML VIAL. IV PRN; -PROCHLORPERAZINE 10 MG/2 ML VIAL. IV PRN; -PROPOFOL 20 ML IV ONE; +SINCALIDE 1.5 MCG in IV NORMAL SALINE 50ML 30 ML IV ONE; -fentaNYL PF VIAL 100 MCG/2 ML VIAL IV PRN
--- NOTE | 2019-01-15 13:00 | RAD ---
HEPATOBILIARY SCAN WITH EJECTION FRACTION 01/15/2019 12:57 PM History: Abdominal pain, nausea, vomiting. Procedure: Serial static images are obtained of the liver and biliary system in the frontal projection following IV administration of 5 mCi of Technetium 99m Choletec. After filling of the gallbladder, 1.5 mcg of sincalide were infused over 30 minutes and dynamic imaging continued over this period. The gallbladder ejection fraction was calculated. Findings: There is prompt hepatic clearance of tracer from the blood pool. There is homogeneous distribution throughout the liver. The gallbladder ejection fraction measures 79% (normal gallbladder EF is 35% or greater). IMPRESSION: 1. The cystic duct and common bile duct are patent. Negative for acute cholecystitis. 2. The gallbladder ejection fraction is within normal limits Electronically signed by: Tai Olvera MD (01/15/2019 12:57 PM) [id number]
== END | disposition home or self-care (01) ==
LOC: NM 15:24
PROVIDERS: ATTEND Internal Medicine Gastroenterology
DX: R11.2 Nausea with vomiting, unspecified (principal); R10.9 Unspecified abdominal pain
CPT/HCPCS: 78227; A9537; J2805

== ENCOUNTER 2019-02-12 08:55 | Emergency (ER) | payer MEDICAID ==
[~2019-02-12] VITALS: Ht 165.1 cm; Wt 77.1 kg
[~2019-02-12 08:55] MED LIST changes: -SINCALIDE 1.5 MCG in IV NORMAL SALINE 50ML 30 ML IV ONE
[2019-02-12] MEDS ORDERED: IV NORMAL SALINE 1000ML BAG 1,000 ML IV SCH (09:36)
--- NOTE | 2019-02-12 09:42 | PHYS DOC ---
Past Medical History Past Medical History: Asthma, COPD, Diabetes-Type II, Hypertension Additional Past Medical Histor: Lupus Past Surgical History: Appendectomy, Hysterectomy, Other Additional Past Surgical Histo: BACK SURGERY Smoking: Cigarettes Alcohol Use: Rarely Drug Use: Marijuana Adult General Chief Complaint Chief Complaint: SHORTNESS OF BREATH [facility] HPI Patient is a 48-year-old female with a past history of diabetes, COPD, and other health problems, who presents to the emergency department for evaluation of increasing shortness of breath, as well as a nonproductive cough, over the past 48 hours. She has had some wheezing, but no fevers. She denies any chest pain, or definite pleuritic pain. She has had a prior surgery on her right lung, for pneumonia in the past. Exertion seems to worsen her shortness of breath. There are no alleviating factors to her symptoms otherwise. . She states the symptoms that she is having feel similar to her prior COPD exacerbation episodes. Patient does also complains of right-sided posterior thoracic pain, worse with coughing and deep breathing. Review of Systems Review of Systems Constitutional: Denies fever or chills [] Eyes: Denies change in visual acuity, redness, or eye pain [] HENT: Denies nasal congestion or sore throat [] Respiratory:No additional information not addressed in HPI [] Cardiovascular: The patient denies any chest pain, palpitations, or orthopnea [] GI: Denies abdominal pain, nausea, vomiting, bloody stools or diarrhea [] : Denies dysuria or hematuria [] Musculoskeletal: Denies back pain or joint pain [] Integument: Denies rash or skin lesions [] Neurologic: Denies headache, focal weakness or sensory changes [] Endocrine: Denies polyuria or polydipsia [] All other systems were reviewed and found to be within normal limits, except as documented in this note. Current Medications Current Medications Current Medications Medications (Trade) Dose Ordered Sig/Nona Start Time Stop Time Status Last Admin Dose Admin Albuterol/ Ipratropium (Duoneb) 3 ml 1X ONCE 02/12/19 12:30 02/12/19 12:31 DC 02/12/19 12:38 3 ML Azithromycin (Zithromax) 500 mg 1X ONCE 02/12/19 12:30 02/12/19 12:31 DC 02/12/19 12:26 500 MG Ceftriaxone Sodium (Rocephin) 1 gm 1X ONCE 02/12/19 12:15 02/12/19 12:17 DC 02/12/19 12:26 1 GM Info (CONTRAST GIVEN -- Rx MONITORING) 1 each PRN DAILY PRN 02/12/19 11:45 02/14/19 11:44 Iohexol (Omnipaque 350 Mg/ml) 90 ml 1X ONCE 02/12/19 11:30 02/12/19 11:31 DC 02/12/19 11:41 90 ML Methylprednisolone Sodium Succinate (SOLU-Medrol 125MG VIAL) 125 mg 1X ONCE 02/12/19 09:45 02/12/19 09:46 DC 02/12/19 10:03 125 MG Morphine Sulfate (Morphine Sulfate) 4 mg 1X ONCE 02/12/19 12:15 02/12/19 12:16 DC 02/12/19 12:18 4 MG Sodium Chloride 1,000 ml @ 1,000 mls/hr Q1H 02/12/19 09:36 02/12/19 10:35 DC 02/12/19 09:50 1,000 MLS/HR Allergies Allergies Allergies Coded Allergies Type Severity Reaction Last Updated Verified lisinopril Allergy Intermediate COUGH 01/07/19 Yes I S O L A T I O N *CONTACT* Allergy Unknown 01/07/19 Yes Physical Exam Physical Exam PHYSICAL EXAM: CONSTITUTIONAL: Well developed, well nourished HEAD: normocephalic, atraumatic EENT: PERRL, EOMI. Conjunctivae normal color, sclerae non-icteric; moist mucous membranes. NECK: Supple, non-tender; no meningismus. LUNGS: Breathing is mildly labored. There are diffuse coarse wheezes in all lung gutiérrez, without any rales or rhonchi. HEART: Regular rhythm, mildly tachycardic, no murmur CHEST: No deformity; non-tender ABDOMEN: The abdomen is soft, and non-tender, no masses or bruits. EXTREM: Normal ROM; no deformity, no calf tenderness. Normal pulses palpable in all extremities. There is no pedal edema. SKIN: No rash; no diaphoresis NEURO: Alert; normal speech and cognition; CN's grossly intact; strength grossly intact without focal deficit. BACK: No CVA TTP. There is tenderness to palpation to the upper posterior thorax, which reproduces the patient's pain. Current Patient Data Vital Signs Vital Signs Date Time Temp Pulse Resp B/P (MAP) Pulse Ox O2 Delivery O2 Flow Rate FiO2 02/12/19 12:38 99 Room Air 02/12/19 12:18 20 02/12/19 11:49 104 159/94 (115) 02/12/19 09:21 98.2 98.2 Lab Values Laboratory Tests Test 02/12/19 10:00 02/12/19 11:00 White Blood Count 9.5 x10^3/uL (4.0-11.0) Red Blood Count 4.82 x10^6/uL (3.50-5.40) Hemoglobin 14.5 g/dL (12.0-15.5) Hematocrit 43.3 % (36.0-47.0) Mean Corpuscular Volume 90 fL (79-100) Mean Corpuscular Hemoglobin 30 pg (25-35) Mean Corpuscular Hemoglobin Concent 34 g/dL (31-37) Red Cell Distribution Width 13.7 % (11.5-14.5) Platelet Count 399 x10^3/uL (140-400) Neutrophils (%) (Auto) 64 % (31-73) Lymphocytes (%) (Auto) 24 % (24-48) Monocytes (%) (Auto) 5 % (0-9) Eosinophils (%) (Auto) 7 % (0-3) H Basophils (%) (Auto) 1 % (0-3) Neutrophils # (Auto) 6.1 x10^3/uL (1.8-7.7) Lymphocytes # (Auto) 2.2 x10^3/uL (1.0-4.8) Monocytes # (Auto) 0.5 x10^3/uL (0.0-1.1) Eosinophils # (Auto) 0.6 x10^3/uL (0.0-0.7) Basophils # (Auto) 0.1 x10^3/uL (0.0-0.2) Sodium Level 138 mmol/L (136-145) Potassium Level 3.6 mmol/L (3.5-5.1) Chloride Level 102 mmol/L (98-107) Carbon Dioxide Level 25 mmol/L (21-32) Anion Gap 11 (6-14) Blood Urea Nitrogen 4 mg/dL (7-20) L Creatinine 0.8 mg/dL (0.6-1.0) Estimated GFR (Cockcroft-Gault) 93.0 BUN/Creatinine Ratio 5 (6-20) L Glucose Level 120 mg/dL (70-99) H Lactic Acid Level 2.5 mmol/L (0.4-2.0) H Calcium Level 9.6 mg/dL (8.5-10.1) Total Bilirubin 0.5 mg/dL (0.2-1.0) Aspartate Amino Transferase (AST) 154 U/L (15-37) H Alanine Aminotransferase (ALT) 72 U/L (14-59) H Alkaline Phosphatase 105 U/L (46-116) Troponin I Quantitative < 0.017 ng/mL (0.000-0.055) MJ-Xjr-G-Type Natriuretic Peptide 334 pg/mL (0-124) H Total Protein 8.6 g/dL (6.4-8.2) H Albumin 3.2 g/dL (3.4-5.0) L Albumin/Globulin Ratio 0.6 (1.0-1.7) L Urine Collection Type Unknown Urine Color Yellow Urine Clarity Clear Urine pH 6.5 Urine Specific [place] 1.010 Urine Protein Negative mg/dL (NEG-TRACE) Urine Glucose (UA) Negative mg/dL (NEG) Urine Ketones (Stick) Negative mg/dL (NEG) Urine Blood Negative (NEG) Urine Nitrite Negative (NEG) Urine Bilirubin Negative (NEG) Urine Urobilinogen Dipstick 1.0 mg/dL (0.2 mg/dL) Urine Leukocyte Esterase Negative (NEG) Urine RBC 0 /HPF (0-2) Urine WBC 0 /HPF (0-4) Urine Squamous Epithelial Cells Mod /LPF Urine Bacteria 0 /HPF (0-FEW) Laboratory Tests 02/12/19 10:00 Laboratory Tests 02/12/19 10:00 EKG EKG []Sinus tachycardia at a rate of 112 beats for minute, left axis deviation, normal intervals. There are no acute ischemic ST/T changes. Radiology/Procedures Radiology/Procedures [PROCEDURE: CT ANGIOGRAPHY CHEST PQRS Compliance Statement: One or more of the following individualized dose reduction techniques were utilized for this examination: 1. Automated exposure control 2. Adjustment of the mA and/or kV according to patient size 3. Use of iterative reconstruction technique CT angiography chest with contrast 02/12/2019 11:21 AM INDICATION: Shortness of air COMPARISON: CT chest December 29, 2017 TECHNIQUE: Axial CT images of the chest were obtained after the intravenous administration of nonionic contrast. Coronal and sagittal reformats are provided. Maximum intensity projection images of the thoracic vasculature are provided. FINDINGS: Stable 18 mm left thyroid nodule. There are no pathologically enlarged axillary, mediastinal or hilar lymph nodes. The heart size is within normal limits. No significant pericardial effusion. Thoracic aorta is normal in course and caliber. There is suboptimal opacification of the pulmonary arterial system. Limited evaluation of the distal lobar, segmental and subsegmental pulmonary arteries. No filling defects are identified in the central and main pulmonary arteries. 4 mm solid noncalcified pulmonary nodule is identified in the left upper lobe, previously measuring 2-3 mm on December 29, 2017. Bronchial wall thickening is compatible with bronchitis. No pleural effusions, pulmonary vascular congestion or pneumothorax. Severe diffuse hepatic steatosis, progressed since the prior examination. Small hiatal hernia. No suspicious osseous lesions are visualized. IMPRESSION: Suboptimal evaluation for acute or chronic pulmonary embolism. No definite central or main pulmonary artery embolus. Marginal increase in 4 mm solid noncalcified pulmonary nodule in the left upper lobe. 6-12 month follow-up chest CT may be of benefit. Bronchial wall thickening is compatible with bronchitis. Interval progression of severe diffuse hepatic steatosis.] PROCEDURE: PORTABLE CHEST 1V Single view of the chest. 02/12/2019 10:03 AM Indication: Cough, shortness of breath, COPD Comparison: Chest radiograph November 17, 2019 Findings: Mild interstitial coarsening is stable. No new focal consolidation or infiltrate is seen. No evidence of pneumothorax or effusion is seen. Heart size is within normal limits given portable technique. Bony thorax is grossly intact. IMPRESSION: No evidence of acute cardiopulmonary process Course & Med Decision Making Course & Med Decision Making Pertinent Labs and Imaging studies reviewed. (See chart for details) []12:45 PM: The patient's condition remained stable. She still having some mild residual wheezing, but is less dyspneic. Overall clinical suspicion for pulmonary embolism is very low. The patient does have access to a nebulizer with adequate medication at home, although she has not used any today. I encouraged her to do so, I discussed importance of close follow-up with her PCP, and return precautions in detail. She does have a simple cord inhaler at home and give her a rescue albuterol inhaler as well, so she can have it with her. Dragon Disclaimer Dragon Disclaimer This electronic medical record was generated, in whole or in part, using a voice recognition dictation system. Departure Departure Impression: Primary Impression: COPD exacerbation Disposition: ADMITTED INPATIENT Condition: STABLE Referrals: ALLIE MARES MD (PCP) Patient Instructions: Chronic Obstructive Pulmonary Disease Exacerbation, Smoking Cessation Scripts Albuterol Sulfate (PROAIR HFA INHALER) 8.5 Gm Hfa.aer.ad 1 PUFF INH PRN Q6HRS PRN for SHORTNESS OF BREATH, #1 INHALER 0 Refills Prov: GANESH GARCIA MD 02/12/19 Prednisone (PREDNISONE) 20 Mg Tablet 40 MG PO DAILY for 5 Days, #10 TAB Prov: GANESH GARCIA MD 02/12/19 Azithromycin (AZITHROMYCIN TABLET) 250 Mg Tablet 1 PKG PO UD, #6 TAB Begin 02/13/19 Prov: GANESH GARCIA MD 02/12/19 GANESH GARCIA MD Feb 12, 2019 09:42
--- NOTE | 2019-02-12 09:44 | EKG ---
[facility] [address] [place] [address] Test Date: 2019-02-12 Test Time: 09:27:07 Pat Name: CALDERON YAP Department: Room: Gender: F Is Architect: : [id number] Requested By: GANESH GARCIA Order Number: [id number] Reading MD: Measurements Intervals [place] Rate: 112 P: 50 PA: 142 QRS: -11 QRSD: 80 T: 59 QT: 328 QTc: 449 Interpretive Statements SINUS TACHYCARDIA LEFT ATRIAL ABNORMALITY LEFTWARD AXIS QRS(T) CONTOUR ABNORMALITY CONSIDER ANTEROSEPTAL MYOCARDIAL DAMAGE ABNORMAL ECG RI6.01 No previous ECG available for comparison
[2019-02-12] MEDS ORDERED: methylPREDNISolone SOD SUCC PF 125 MG/2 ML VIAL. IV ONE (09:45)
[2019-02-12] MEDS ORDERED: IPRATRPIUM/ALBUTEROL 0.5/2.5MG 3 ML NEBU. NEB ONE ×3 (09:45→12:30)
[2019-02-12 10:11] LABS: BASO # 0.1 x10^3/uL (0.0-0.2); BASO % 1 % (0-3); EOS # 0.6 x10^3/uL (0.0-0.7); EOS % 7 % (0-3); HEMATOCRIT 43.3 % (36.0-47.0); HEMOGLOBIN 14.5 g/dL (12.0-15.5); LYMPH # 2.2 x10^3/uL (1.0-4.8); LYMPH % 24 % (24-48); MEAN CORPUSCULAR HEMOGLOBIN 30 pg (25-35); MEAN CORPUSCULAR HGB CONC 34 g/dL (31-37); MEAN CORPUSCULAR VOLUME 90 fL (79-100); MONO # 0.5 x10^3/uL (0.0-1.1); MONO % 5 % (0-9); NEUT # 6.1 x10^3/uL (1.8-7.7); NEUT % 64 % (31-73); PLATELET COUNT 399 x10^3/uL (140-400); RED BLOOD COUNT 4.82 x10^6/uL (3.50-5.40); RED CELL DISTRIBUTION WIDTH 13.7 % (11.5-14.5); WHITE BLOOD COUNT 9.5 x10^3/uL (4.0-11.0)
[2019-02-12 10:28] LABS: CALCIUM 9.6 mg/dL (8.5-10.1); CREATININE 0.8 mg/dL (0.6-1.0); POTASSIUM 3.6 mmol/L (3.5-5.1)
[2019-02-12 10:35] LABS: ALBUMIN 3.2 g/dL (3.4-5.0); ALBUMIN/GLOBULIN RATIO 0.6 (1.0-1.7); TOTAL BILIRUBIN 0.5 mg/dL (0.2-1.0); TOTAL PROTEIN 8.6 g/dL (6.4-8.2)
--- NOTE | 2019-02-12 10:44 | RAD ---
Single view of the chest. 02/12/2019 10:03 AM Indication: Cough, shortness of breath, COPD Comparison: Chest radiograph November 17, 2019 Findings: Mild interstitial coarsening is stable. No new focal consolidation or infiltrate is seen. No evidence of pneumothorax or effusion is seen. Heart size is within normal limits given portable technique. Bony thorax is grossly intact. IMPRESSION: No evidence of acute cardiopulmonary process Electronically signed by: Tai Olvera MD (02/12/2019 10:41 AM) [id number]
[2019-02-12 11:07] LABS: BILIRUBIN,URINE NEGATIVE (NEG); CLARITY,URINE CLEAR; COLOR,URINE YELLOW; NITRITE,URINE NEGATIVE (NEG); PH,URINE 6.5; PROTEIN,URINE NEGATIVE (NEG-TRACE)
[2019-02-12 11:18] LABS: BACTERIA,URINE 0 /HPF (0-FEW); RBC,URINE 0 /HPF (0-2); SQUAMOUS EPITHELIAL CELL,UR MOD /LPF; WBC,URINE 0 /HPF (0-4)
[2019-02-12] MEDS ORDERED: IOHEXOL 350 MG/ML 100 ML VIAL. IV ONE (11:30)
[2019-02-12] MEDS ORDERED: CONTRAST GIVEN. MC PRN (11:45)
--- NOTE | 2019-02-12 12:06 | RAD ---
PQRS Compliance Statement: One or more of the following individualized dose reduction techniques were utilized for this examination: 1. Automated exposure control 2. Adjustment of the mA and/or kV according to patient size 3. Use of iterative reconstruction technique CT angiography chest with contrast 02/12/2019 11:21 AM INDICATION: Shortness of air COMPARISON: CT chest December 29, 2017 TECHNIQUE: Axial CT images of the chest were obtained after the intravenous administration of nonionic contrast. Coronal and sagittal reformats are provided. Maximum intensity projection images of the thoracic vasculature are provided. FINDINGS: Stable 18 mm left thyroid nodule. There are no pathologically enlarged axillary, mediastinal or hilar lymph nodes. The heart size is within normal limits. No significant pericardial effusion. Thoracic aorta is normal in course and caliber. There is suboptimal opacification of the pulmonary arterial system. Limited evaluation of the distal lobar, segmental and subsegmental pulmonary arteries. No filling defects are identified in the central and main pulmonary arteries. 4 mm solid noncalcified pulmonary nodule is identified in the left upper lobe, previously measuring 2-3 mm on December 29, 2017. Bronchial wall thickening is compatible with bronchitis. No pleural effusions, pulmonary vascular congestion or pneumothorax. Severe diffuse hepatic steatosis, progressed since the prior examination. Small hiatal hernia. No suspicious osseous lesions are visualized. IMPRESSION: Suboptimal evaluation for acute or chronic pulmonary embolism. No definite central or main pulmonary artery embolus. Marginal increase in 4 mm solid noncalcified pulmonary nodule in the left upper lobe. 6-12 month follow-up chest CT may be of benefit. Bronchial wall thickening is compatible with bronchitis. Interval progression of severe diffuse hepatic steatosis. Electronically signed by: Li York MD (02/12/2019 12:03 PM) [id number]
[2019-02-12] MEDS ORDERED: MORPHINE SULFATE 4 MG/ML VIAL. IV ONE (12:15)
[2019-02-12] MEDS ORDERED: AZITHRMYCN 500MG IVPB FOR OMNI 250 ML IV ONE (12:15)
[2019-02-12] MEDS ORDERED: cefTRIAXone IV Push 1 GM VIAL. IVP ONE (12:15)
[2019-02-12] MEDS ORDERED: AZITHROMYCIN 250 MG TABLET. PO ONE (12:30)
[2019-02-12 12:44] VITALS: BP 165/104
[2019-02-12] MEDS ORDERED: ALBU2.5V8 INH (12:50)
[2019-02-12] MEDS ORDERED: AZIT250T6 PO (12:50)
[2019-02-12] MEDS ORDERED: PRED20TA PO (12:50)
== END 2019-02-12 13:00 | disposition home or self-care (01) ==
LOC: ER 08:55
DX: J44.1 Chronic obstructive pulmonary disease with (acute) exacerbation (principal); E11.9 Type 2 diabetes mellitus without complications; I10 Essential (primary) hypertension; F17.210 Nicotine dependence, cigarettes, uncomplicated; Z90.89 Acquired absence of other organs; Z90.710 Acquired absence of both cervix and uterus
CPT/HCPCS: 36415; 71045; 71275; 80053; 81001; 83605; 83880; 84484; 85025; 87040; 93005; 94640; 96374; 96375; 99285; J0696; J2270; J2930; J7030; J7620; Q0144; Q9967

== ENCOUNTER 2019-03-07 14:54 | Emergency (ER) | payer MEDICAID ==
[~2019-03-07] VITALS: Ht 162.6 cm; Wt 78.5 kg
[~2019-03-07 14:54] MED LIST changes: +DOXY100T PO; -EZET10TA18 PO; +EZET10TA20 PO
[2019-03-07 15:28] VITALS: BP 127/76
[2019-03-07] MEDS ORDERED: HYDROcodone/APAP 5/325MG 1 TAB TABLET PO ONE (15:30)
--- NOTE | 2019-03-07 15:34 | PHYS DOC ---
Past Medical History Past Medical History: Asthma, COPD, Diabetes-Type II, Hypertension Additional Past Medical Histor: Lupus Past Surgical History: Appendectomy, Hysterectomy, Other Additional Past Surgical Histo: BACK SURGERY Alcohol Use: Rarely Drug Use: None Adult General Chief Complaint Chief Complaint: BACK PAIN OR INJURY HPI HPI Patient is a 48 year old Female who presents with last night at 2200 fell down 7 steps that were carpeted. Patient states her granddaughter left a piece of paper on the stairs and she slipped and fall landing on her tailbone and her back slightly down the stairs. Patient rates her pain is 10 out of 10 and is throbbing and aching. Patient states her daughter helped her back up and she was able to walk. Patient denies hitting her head. Patient states she took 2 aspirin this morning and she's been trying a heating pad. Review of Systems Review of Systems Constitutional: Denies fever or chills [] Eyes: Denies change in visual acuity, redness, or eye pain [] Respiratory: Denies cough or shortness of breath [] Musculoskeletal: back pain or joint pain [] Integument: Denies rash or skin lesions [] Neurologic: Denies headache, focal weakness or sensory changes [] All other systems were reviewed and found to be within normal limits, except as documented in this note. Current Medications Current Medications Current Medications Medications (Trade) Dose Ordered Sig/Nona Start Time Stop Time Status Last Admin Dose Admin Acetaminophen/ Hydrocodone Bitart (Lortab 5/325) 1 tab 1X ONCE 03/07/19 15:30 03/07/19 15:31 DC 03/07/19 15:39 1 TAB Allergies Allergies Allergies Coded Allergies Type Severity Reaction Last Updated Verified lisinopril Allergy Intermediate COUGH 01/07/19 Yes I S O L A T I O N *CONTACT* Allergy Unknown 01/07/19 Yes Physical Exam Physical Exam Constitutional: Well developed, well nourished, no acute distress, non-toxic appearance. [] HENT: Normocephalic, atraumatic, bilateral external ears normal, oropharynx moist, no oral exudates, nose normal. [] Eyes: PERRLA, EOMI, conjunctiva normal, no discharge. [] Neck: Normal range of motion, no tenderness, supple, no stridor. [] Cardiovascular:Heart rate regular rhythm, no murmur [] Lungs & Thorax: Bilateral breath sounds clear to auscultation [] Skin: Warm, dry, no erythema, no rash. [] Back: Cervical spine and lumbar spine tenderness, no CVA tenderness. [] Extremities: No tenderness, no cyanosis, no clubbing, ROM intact, no edema. [] Neurologic: Alert and oriented X 3, normal motor function, normal sensory function, no focal deficits noted. [] Psychologic: Affect normal, judgement normal, mood normal. [] Current Patient Data Vital Signs Vital Signs Date Time Temp Pulse Resp B/P (MAP) Pulse Ox O2 Delivery O2 Flow Rate FiO2 03/07/19 15:28 98.0 110 18 127/76 (93 95 Room Air 98.0 EKG EKG [] Radiology/Procedures Radiology/Procedures [] Impressions: [facility] [address] [place] [address] IMAGING REPORT Signed PATIENT: CALDERON YAP ACCOUNT: [id number] : 1970 LOCATION: ER AGE: 48 SEX: F EXAM STATUS: REG ER ORD. PHYSICIAN: NATIVIDAD HAWTHORNE APRN REASON: FALL, PAIN FROM CERVICAL SPINE THROUGH TAILBONE PROCEDURE: CT CERVICAL SPINE WO CONTRAST Exam: CT cervical and thoracic spine without contrast INDICATION: Fall, pain from cervical spine through tailbone TECHNIQUE: Sequential axial images through the cervical and thoracic obtained without IV contrast. Sagittal and coronal reformatted images were reconstructed from the axial data and reviewed. Comparisons: None FINDINGS: Cervical spine: Visualized intracranial structures are unremarkable. Vertebral body heights are well-maintained. There is straightening of the cervical spine which may be positional. Fracture to the cervical spine is not identified. No significant spondylotic changes noted in the cervical spine. 1.4 cm hypoattenuating nodule at the left lobe of thyroid gland. Several prominent and mildly enlarged bilateral cervical lymph nodes predominantly in level 5. Thoracic spine: Vertebral body heights and alignment are well-maintained. Fracture to the thoracic spine is not identified. No significant spondylotic change in the thoracic spine. Diffuse hepatic steatosis. Moderate hiatal hernia. 4 mm nodule left lung apex series 2 image 19. Subtle patchy areas of groundglass opacity noted within the right upper lobe. IMPRESSION: 1. Negative CT C-spine for acute traumatic injury. 2. Negative CT T spine for acute traumatic injury. 3. A 1.4 cm hypoattenuating nodule in the left lobe of the thyroid gland. Further evaluation with nonemergent thyroid ultrasound is recommended. 4. Subtle areas of groundglass opacity in the right upper lobe may be infectious or inflammatory in etiology. 5. Moderate-sized hiatal hernia. 6. Diffuse hepatic steatosis. 7. A 4 mm nodule in the left upper lobe. In a low-risk patient no further follow-up imaging is recommended. In a high-risk patient and optional one-year follow-up CT can BE performed. Exposure: One or more of the following in the visualized dose reduction techniques were utilized for this examination: 1. Automated exposure control 2. Adjustment of the MA and/or KV according to patient size 3. Use of iterative of reconstructive technique Electronically signed by: Kanchan Escobar MD (03/07/2019 4:06 PM) [facility] DICTATED and SIGNED BY: KANCHAN ESCOBAR MD DATE: 03/07/19 1606 [facility] [address] [place] [address] IMAGING REPORT Signed PATIENT: CALDERON YAP ACCOUNT: [id number] : 1970 LOCATION: ER AGE: 48 SEX: F EXAM STATUS: REG ER ORD. PHYSICIAN: NATIVIDAD HAWTHOREN APRN REASON: FALL, PAIN FROM CERVICAL SPINE THROUGH TAILBONE PROCEDURE: CT LUMBAR SPINE WO CONTRAST Exam: CT lumbar spine without contrast INDICATION: Fall TECHNIQUE: Sequential axial images through the lumbar spine obtained without IV contrast. Sagittal and coronal reformatted images were reconstructed from the axial data and reviewed. Comparisons: CT 12/18/2018 FINDINGS: Vertebral body heights and alignment are well-maintained. Transitional anatomy at the lumbosacral junction. Fracture to the lumbar spine is not identified. L3-L4: Broad-based disc bulge, ligament flavum thickening and facet arthropathy causing mild spinal canal stenosis. No significant neuroforaminal stenosis. L4-L5: Broad-based disc bulge and ligament flavum thickening and facet arthropathy causing mild spinal canal stenosis no significant neural foraminal stenosis. Visualized paraspinal soft tissues are unremarkable. IMPRESSION: 1. Negative CT L-spine for acute traumatic injury. 2. Spondylotic changes described above. Exposure: One or more of the following in the visualized dose reduction techniques were utilized for this examination: 1. Automated exposure control 2. Adjustment of the MA and/or KV according to patient size 3. Use of iterative of reconstructive technique Electronically signed by: Kanchan Escobar MD (03/07/2019 4:19 PM) [id number] DICTATED and SIGNED BY: KANCHAN ESCOBAR MD DATE: 03/07/19 1619 Course & Med Decision Making Course & Med Decision Making Patient is a 48 year old Female who presents with last night at 2200 fell down 7 steps that were carpeted. Patient states her granddaughter left a piece of paper on the stairs and she slipped and fall landing on her tailbone and her back slightly down the stairs. Patient rates her pain is 10 out of 10 and is throbbing and aching. Patient states her daughter helped her back up and she was able to walk. Patient denies hitting her head. Patient states she took 2 aspirin this morning and she's been trying a heating pad. Alert and oriented. Skin pink warm and dry. PERRLA. Patient denies numbness or tingling, chest pain or shortness of air, nausea, vomiting, head pain, visual changes, hitting her head. Patient has focal bony spinal tenderness with palpation from cervical spine through lumbar spine. Patient states she does have some telephone pain also. No bruising or deformity seen or felt patient's body. There are no abrasions or lacerations. Patient has intact range of motion of her neck. Patient denies any extremity pain. PERRLA. Lungs are clear to auscultation in all lobes. Vital signs within normal limits. CT scan showed no acute findings. I'll prescribe patient pain medication and muscle relaxer. Patient to follow up with primary care provider. Dragon Disclaimer Dragon Disclaimer This electronic medical record was generated, in whole or in part, using a voice recognition dictation system. Departure Departure Impression: Primary Impression: Back pain Additional Impression: Fall Disposition: 01 HOME, SELF-CARE Condition: STABLE Referrals: Bernie ANTHONY MD (PCP) Patient Instructions: Back Pain, Adult, Fall Prevention and Home Safety Additional Instructions: Follow-up with primary care provider. Take medication as prescribed. Try using a heating pad or ice. Scripts Orphenadrine Citrate (ORPHENADRINE CITRATE) 100 Mg Tablet.er 1 TAB PO BID, #20 TAB 1 Refill Prov: NATIVIDAD HAWTHORNE APRN 03/07/19 Hydrocodone Bit/Acetaminophen (HYDROCODONE-APAP 5-325 ) 1 Tab Tablet 1 TAB PO PRN Q6HRS PRN for PAIN, #10 TAB 0 Refills Prov: NATIVIDAD HAWTHORNE APRN 03/07/19 Problem Qualifiers Primary Impression: Back pain Back pain location: back pain in other location Chronicity: acute Qualified Codes: M54.9 - Dorsalgia, unspecified Additional Impression: Fall Encounter type: initial encounter Qualified Codes: W19.XXXA - Unspecified fall, initial encounter NATIVIDAD HAWTHORNE EQUINE MANAGER Mar 07, 2019 15:34
--- NOTE | 2019-03-07 16:09 | RAD ---
Exam: CT cervical and thoracic spine without contrast INDICATION: Fall, pain from cervical spine through tailbone TECHNIQUE: Sequential axial images through the cervical and thoracic obtained without IV contrast. Sagittal and coronal reformatted images were reconstructed from the axial data and reviewed. Comparisons: None FINDINGS: Cervical spine: Visualized intracranial structures are unremarkable. Vertebral body heights are well-maintained. There is straightening of the cervical spine which may be positional. Fracture to the cervical spine is not identified. No significant spondylotic changes noted in the cervical spine. 1.4 cm hypoattenuating nodule at the left lobe of thyroid gland. Several prominent and mildly enlarged bilateral cervical lymph nodes predominantly in level 5. Thoracic spine: Vertebral body heights and alignment are well-maintained. Fracture to the thoracic spine is not identified. No significant spondylotic change in the thoracic spine. Diffuse hepatic steatosis. Moderate hiatal hernia. 4 mm nodule left lung apex series 2 image 19. Subtle patchy areas of groundglass opacity noted within the right upper lobe. IMPRESSION: 1. Negative CT C-spine for acute traumatic injury. 2. Negative CT T spine for acute traumatic injury. 3. A 1.4 cm hypoattenuating nodule in the left lobe of the thyroid gland. Further evaluation with nonemergent thyroid ultrasound is recommended. 4. Subtle areas of groundglass opacity in the right upper lobe may be infectious or inflammatory in etiology. 5. Moderate-sized hiatal hernia. 6. Diffuse hepatic steatosis. 7. A 4 mm nodule in the left upper lobe. In a low-risk patient no further follow-up imaging is recommended. In a high-risk patient and optional one-year follow-up CT can BE performed. Exposure: One or more of the following in the visualized dose reduction techniques were utilized for this examination: 1. Automated exposure control 2. Adjustment of the MA and/or KV according to patient size 3. Use of iterative of reconstructive technique Electronically signed by: Kanchan Olivares MD (03/07/2019 4:06 PM) [facility]
--- NOTE | 2019-03-07 16:22 | RAD ---
Exam: CT lumbar spine without contrast INDICATION: Fall TECHNIQUE: Sequential axial images through the lumbar spine obtained without IV contrast. Sagittal and coronal reformatted images were reconstructed from the axial data and reviewed. Comparisons: CT 12/18/2018 FINDINGS: Vertebral body heights and alignment are well-maintained. Transitional anatomy at the lumbosacral junction. Fracture to the lumbar spine is not identified. L3-L4: Broad-based disc bulge, ligament flavum thickening and facet arthropathy causing mild spinal canal stenosis. No significant neuroforaminal stenosis. L4-L5: Broad-based disc bulge and ligament flavum thickening and facet arthropathy causing mild spinal canal stenosis no significant neural foraminal stenosis. Visualized paraspinal soft tissues are unremarkable. IMPRESSION: 1. Negative CT L-spine for acute traumatic injury. 2. Spondylotic changes described above. Exposure: One or more of the following in the visualized dose reduction techniques were utilized for this examination: 1. Automated exposure control 2. Adjustment of the MA and/or KV according to patient size 3. Use of iterative of reconstructive technique Electronically signed by: Kanchan Olivares MD (03/07/2019 4:19 PM) [facility]
[2019-03-07] MEDS ORDERED: ORPH100T PO (16:34)
[2019-03-07] MEDS ORDERED: HYDR-2761 PO (16:34)
== END 2019-03-07 16:46 | disposition home or self-care (01) ==
LOC: ER 14:54
DX: M54.5 Low back pain (principal); M54.2 Cervicalgia; M54.6 Pain in thoracic spine; J44.9 Chronic obstructive pulmonary disease, unspecified; E11.9 Type 2 diabetes mellitus without complications; I10 Essential (primary) hypertension; Z90.89 Acquired absence of other organs; Z90.710 Acquired absence of both cervix and uterus; Z88.8 Allergy status to other drugs, medicaments and biological substances; Z91.041 Radiographic dye allergy status; W10.8XXA Fall (on) (from) other stairs and steps, initial encounter; Y93.89 Activity, other specified; Y92.89 Other specified places as the place of occurrence of the external cause; Y99.8 Other external cause status
CPT/HCPCS: 72125; 72128; 72131; 99284

== ENCOUNTER 2019-03-12 13:35 | Inpatient (IN) | payer MEDICAID ==
[~2019-03-12] VITALS: Ht 172.7 cm; Wt 78.5 kg
[~2019-03-12 13:35] MED LIST changes: +HYDR-2761 PO; +ORPH100T PO
[2019-03-12] MEDS ORDERED: IPRATRPIUM/ALBUTEROL 0.5/2.5MG 3 ML NEBU. ONE (13:53)
[2019-03-12] MEDS ORDERED: ALBUTEROL SULFATE 2.5 MG/3 ML NEBU. ONE (14:05)
--- NOTE | 2019-03-12 14:12 | PHYS DOC ---
Past Medical History Past Medical History: Asthma, COPD, Diabetes-Type II, Hypertension Additional Past Medical Histor: Lupus Past Surgical History: Appendectomy, Hysterectomy, Other Additional Past Surgical Histo: BACK SURGERY Alcohol Use: Rarely Drug Use: Cocaine Adult General Chief Complaint Chief Complaint: ASTHMA HPI HPI Patient is a 48 year old female who presents with history of COPD and asthma and began having an asthma exacerbation shortness of air yesterday. Patient states she's been using her inhalers and nebulizer at home and is not working. Speaks in full clear sentences. Review of Systems Review of Systems Constitutional: Denies fever or chills [] HENT: Denies nasal congestion or sore throat [] Respiratory: cough or shortness of breath [] Musculoskeletal: Chronic low back pain or joint pain [] Neurologic: Denies headache, focal weakness or sensory changes [] All other systems were reviewed and found to be within normal limits, except as documented in this note. Current Medications Current Medications Current Medications Medications (Trade) Dose Ordered Sig/Nona Start Time Stop Time Status Last Admin Dose Admin Acetaminophen (Tylenol) 650 mg PRN Q4HRS PRN 03/12/19 17:15 03/13/19 17:14 Acetaminophen/ Codeine Phosphate (Tylenol #3) 1 tab PRN Q6HRS PRN 03/12/19 17:15 Acetaminophen/ Hydrocodone Bitart (Lortab 5/325) 1 tab PRN Q6HRS PRN 03/12/19 17:15 Albuterol Sulfate (Ventolin Neb Soln) 2.5 mg PRN Q6HRS PRN 03/12/19 17:15 Albuterol/ Ipratropium (Duoneb) 3 ml RTQID 03/12/19 20:00 Allopurinol (Zyloprim) 100 mg DAILY 03/13/19 09:00 UNV Amlodipine Besylate (Norvasc) 10 mg DAILY 03/13/19 09:00 UNV Aripiprazole (Abilify) 5 mg DAILY 03/13/19 09:00 UNV Atorvastatin Calcium (Lipitor) 40 mg QHS 03/12/19 21:00 UNV Azithromycin 250 ml @ 250 mls/hr 1X ONCE 03/12/19 15:30 03/12/19 16:29 DC 03/12/19 15:50 250 MLS/HR Benzonatate (Tessalon Perle) 100 mg [id number] 03/12/19 21:00 UNV Calcium Carbonate/ Glycine (Tums) 500 mg PRN AFTMEALHC PRN 03/12/19 17:15 UNV Ceftriaxone Sodium (Rocephin) 1 gm 1X ONCE 03/12/19 15:30 03/12/19 15:32 DC 03/12/19 15:50 1 GM Colchicine (Colcrys) 0.6 mg DAILY 03/13/19 09:00 UNV EZETIMIBE (Zetia) 10 mg DAILY 03/13/19 09:00 UNV Fentanyl Citrate (Fentanyl 2ml Vial) 50 mcg PRN Q1HR PRN 03/12/19 17:15 03/13/19 17:14 Ferrous Sulfate (Feosol) 325 mg DAILY 03/13/19 09:00 UNV Fluticasone Propionate (Flonase) 2 spray DAILY 03/13/19 09:00 UNV Hydralazine HCl (Apresoline) 50 mg TID 03/12/19 21:00 UNV Labetalol HCl (Normodyne Iv Push) 20 mg PRN Q2HR PRN 03/12/19 17:15 Magnesium Sulfate 100 ml @ 25 mls/hr 1X ONCE 03/12/19 15:30 03/12/19 19:29 03/12/19 16:27 25 MLS/HR Methylprednisolone Sodium Succinate (SOLU-Medrol 40MG VIAL) 40 mg Q8HRS 03/12/19 22:00 Non-Formulary Medication (Hydroxyzine Pamoate (Vistaril)) 25 mg PRN PRN 03/12/19 17:15 UNV Non-Formulary Medication (Loratadine ) 1 tab DAILY 03/13/19 09:00 UNV Non-Formulary Medication (Losartan/ Hydrochlorothiazide (Losartan-Hctz 50-12.5 Mg Tab)) 1 tab DAILY 03/13/19 09:00 UNV Non-Formulary Medication (Meloxicam ) 15 mg DAILY 03/13/19 09:00 UNV Non-Formulary Medication (Metoprolol Succinate (Metoprolol Succinate ( Xl ))) 1 tab HS 03/12/19 21:00 UNV Non-Formulary Medication (Multivitamin (Multi-Day Vitamins)) 1 tab DAILY 03/13/19 09:00 UNV Non-Formulary Medication (Omeprazole ) 1 tab DAILY 03/13/19 09:00 UNV Non-Formulary Medication (Orphenadrine Citrate ) 1 tab BID 03/12/19 21:00 UNV Non-Formulary Medication (Potassium Chloride ) 20 meq DAILY 03/13/19 09:00 UNV Non-Formulary Medication (Sumatriptan Succinate (Imitrex)) 50 mg ONCE PRN 03/12/19 17:15 UNV Ondansetron HCl (Zofran Odt) 4 mg PRN Q4HRS PRN 03/12/19 17:15 Ondansetron HCl (Zofran) 4 mg PRN Q6HRS PRN 03/12/19 17:15 Potassium Chloride (Klor-Con) 40 meq 1X ONCE 03/12/19 17:15 03/12/19 17:16 Prednisone (Prednisone) 50 mg 1X ONCE 03/12/19 14:15 03/12/19 14:16 DC 03/12/19 14:46 50 MG Sodium Chloride 500 ml @ 500 mls/hr 1X ONCE 03/12/19 15:30 03/12/19 16:29 DC Temazepam (Restoril) 7.5 mg PRN QHS PRN 03/12/19 17:15 UNV Zolpidem Tartrate (Ambien) 5 mg PRN QHS PRN 03/12/19 17:15 UNV Allergies Allergies Allergies Coded Allergies Type Severity Reaction Last Updated Verified lisinopril Allergy Intermediate COUGH 01/07/19 Yes I S O L A T I O N *CONTACT* Allergy Unknown 01/07/19 Yes Physical Exam Physical Exam Constitutional: Well developed, well nourished, no acute distress, non-toxic appearance. [] Cardiovascular:Heart rate regular sinus tachy rhythm, no murmur [] Lungs & Thorax: Bilateral breath sounds diminished with inspiratory and expiratory wheezes to auscultation [] Abdomen: Bowel sounds normal, soft, no tenderness, no masses, no pulsatile masses. [] Skin: Warm, dry, no erythema, no rash. [] Back: No tenderness, no CVA tenderness. [] Extremities: No tenderness, no cyanosis, no clubbing, ROM intact, no edema. [] Neurologic: Alert and oriented X 3, normal motor function, normal sensory function, no focal deficits noted. [] Psychologic: Affect normal, judgement normal, mood normal. [] Current Patient Data Vital Signs Vital Signs Date Time Temp Pulse Resp B/P (MAP) Pulse Ox O2 Delivery O2 Flow Rate FiO2 03/12/19 15:14 128 18 192/79 (116) 100 Aerosol Mask 03/12/19 13:43 98.1 98.1 Lab Values Laboratory Tests Test 03/12/19 14:34 White Blood Count 9.9 x10^3/uL (4.0-11.0) Red Blood Count 4.25 x10^6/uL (3.50-5.40) Hemoglobin 12.9 g/dL (12.0-15.5) Hematocrit 38.0 % (36.0-47.0) Mean Corpuscular Volume 89 fL (79-100) Mean Corpuscular Hemoglobin 30 pg (25-35) Mean Corpuscular Hemoglobin Concent 34 g/dL (31-37) Red Cell Distribution Width 13.2 % (11.5-14.5) Platelet Count 291 x10^3/uL (140-400) Neutrophils (%) (Auto) 59 % (31-73) Lymphocytes (%) (Auto) 31 % (24-48) Monocytes (%) (Auto) 8 % (0-9) Eosinophils (%) (Auto) 2 % (0-3) Basophils (%) (Auto) 1 % (0-3) Neutrophils # (Auto) 5.8 x10^3/uL (1.8-7.7) Lymphocytes # (Auto) 3.0 x10^3/uL (1.0-4.8) Monocytes # (Auto) 0.8 x10^3/uL (0.0-1.1) Eosinophils # (Auto) 0.2 x10^3/uL (0.0-0.7) Basophils # (Auto) 0.1 x10^3/uL (0.0-0.2) Sodium Level 143 mmol/L (136-145) Potassium Level 3.3 mmol/L (3.5-5.1) L Chloride Level 104 mmol/L (98-107) Carbon Dioxide Level 19 mmol/L (21-32) L Anion Gap 20 (6-14) H Blood Urea Nitrogen 3 mg/dL (7-20) L Creatinine 0.6 mg/dL (0.6-1.0) Estimated GFR (Cockcroft-Gault) 129.7 BUN/Creatinine Ratio 5 (6-20) L Glucose Level 142 mg/dL (70-99) H Lactic Acid Level 4.7 mmol/L (0.4-2.0) *H Calcium Level 8.8 mg/dL (8.5-10.1) Magnesium Level 1.6 mg/dL (1.8-2.4) L Total Bilirubin 0.2 mg/dL (0.2-1.0) Aspartate Amino Transferase (AST) 48 U/L (15-37) H Alanine Aminotransferase (ALT) 59 U/L (14-59) Alkaline Phosphatase 128 U/L (46-116) H Troponin I Quantitative < 0.017 ng/mL (0.000-0.055) GJ-Goa-A-Type Natriuretic Peptide 44 pg/mL (0-124) Total Protein 7.2 g/dL (6.4-8.2) Albumin 2.7 g/dL (3.4-5.0) L Albumin/Globulin Ratio 0.6 (1.0-1.7) L Laboratory Tests 03/12/19 14:34 Laboratory Tests 03/12/19 14:34 EKG EKG Sinus Tachycardia and no STEMI Interpretation Time: [address] Hayes Radiology/Procedures Radiology/Procedures [] Impressions: [facility] [address] [place] [address] IMAGING REPORT Signed PATIENT: CALDERON YAP ACCOUNT: [id number] : 1970 LOCATION: ER AGE: 48 SEX: F EXAM STATUS: REG ER ORD. PHYSICIAN: NATIVIDAD HAWTHORNE APRN REASON: SOA/BREATHING TX, Hx pf COPD and Asthma PROCEDURE: CHEST PA & LATERAL CHEST PA LATERAL History: Shortness of breath, breathing, COPD Comparison: 02/21/2019 two-view chest x-ray exam. Findings: The cardiomediastinal silhouette is normal. Pulmonary vasculature is normal. The lungs are clear. No pleural effusion or pneumothorax is seen. There is no acute bone abnormality. IMPRESSION: No acute cardiopulmonary process. Electronically signed by: Julien Cassidy MD (03/12/2019 4:18 PM) [facility] DICTATED and SIGNED BY: JULIEN CASSIDY MD DATE: 03/12/19 1618 Course & Med Decision Making Course & Med Decision Making Patient is a 48 year old female who presents with history of COPD and asthma and began having an asthma exacerbation shortness of air yesterday. Patient states she's been using her inhalers and nebulizer at home and is not working. Alert and oriented. Speaks in full clear sentences. Lungs are very diminished with inspiratory expiratory wheezes throughout all lobes. Patient is 20 respirations, 124 heart rate, 93% on room air. Patient does not usually wear oxygen at home. Afebrile. Patient denies chest pain, dizziness, nausea, vomiting, diarrhea, fever, numbness or tingling, headache, syncope, visual changes, weakness. Patient states she does smoke. Skin pink warm and dry. Mucous membranes moist. PERRLA. Denies any pain besides her chronic low back pain. Patient rates her chronic low back pain 6 out of 10. Ambulatory with steady gait. Patient states she has a nonproductive cough. After first nebulizer treatment patient is still very wheezy and short of breath. Patient is now getting an hour-long treatment. Lactic acid is elevated. Patient is given fluid resuscitation 30ml/kg not ideal weight and antibiotics are started after blood cultures. No source of infection could be found. I have consulted with Dr Hayes on this patient. Patient states she does not feel better but her lungs sound clearer upon reasse ssment. I have called Dr Ferrer to admit the patient and he states that the patient doctor is Dr Biswas so I need to call the Hospitalist. I have called Dr Longo and the patient is admitted. Harvey Disclaimer Harvey Disclaimer This electronic medical record was generated, in whole or in part, using a voice recognition dictation system. Date and Time of Reassessment Date: Mar 12, 2019 Time: 17:15 Fluid Challenge Is the fluid challenge complet: No IBW Target Volume Used: No BMI > 30: No Vital Signs Vital Signs: Vital Signs Date Time Temp Pulse Resp B/P (MAP) Pulse Ox O2 Delivery O2 Flow Rate FiO2 03/12/19 15:14 128 18 192/79 (116) 100 Aerosol Mask 03/12/19 13:43 98.1 98.1 Temperature Source: Oral Respirations Respiratory Effort: Shortness of breath Respiratory Pattern: Tachypnea Cardiovascular Pulse Rhythm: Regular Heart: Nml rate, reg. rhythm Lung Sounds Breath Sounds: Wheezes Capillary Refil Capillary Refill: Rt Hand > 3 seconds Peripheral Pulse Pulse Location: Radial Pulse Strength: Normal (2+) Pulse Assessment Method: Palpation Integumentary Skin: Warm Skin Moisture: Dry Skin Turgor: Normal Skin Color: warm Fingernail Color: WNL Departure Departure Impression: Primary Impression: COPD exacerbation Disposition: ADMITTED INPATIENT Admitting Physician: TIFFANIE Condition: STABLE Referrals: Bernie FERRER MD (PCP) NATIVIDAD HAWTHORNE APRN Mar 12, 2019 14:11
[2019-03-12] MEDS ORDERED: predniSONE 10 MG TABLET PO ONE (14:15)
[2019-03-12] MEDS ORDERED: IPRATRPIUM/ALBUTEROL 0.5/2.5MG 3 ML NEBU. NEB ONE (14:15)
[2019-03-12] MEDS ORDERED: ALBUTEROL SULFATE 2.5 MG/3 ML NEBU. CONT NEB ONE (14:15)
[2019-03-12 14:44] LABS: BASO # 0.1 x10^3/uL (0.0-0.2); BASO % 1 % (0-3); EOS # 0.2 x10^3/uL (0.0-0.7); EOS % 2 % (0-3); HEMOGLOBIN 12.9 g/dL (12.0-15.5); LYMPH % 31 % (24-48); MEAN CORPUSCULAR HEMOGLOBIN 30 pg (25-35); MEAN CORPUSCULAR HGB CONC 34 g/dL (31-37); MEAN CORPUSCULAR VOLUME 89 fL (79-100); MONO # 0.8 x10^3/uL (0.0-1.1); MONO % 8 % (0-9); NEUT # 5.8 x10^3/uL (1.8-7.7); NEUT % 59 % (31-73); PLATELET COUNT 291 x10^3/uL (140-400); RED BLOOD COUNT 4.25 x10^6/uL (3.50-5.40); RED CELL DISTRIBUTION WIDTH 13.2 % (11.5-14.5); WHITE BLOOD COUNT 9.9 x10^3/uL (4.0-11.0)
[2019-03-12 14:58] LABS: CALCIUM 8.8 mg/dL (8.5-10.1); CREATININE 0.6 mg/dL (0.6-1.0); GFR 129.7; POTASSIUM 3.3 mmol/L (3.5-5.1)
[2019-03-12 15:13] LABS: ALBUMIN 2.7 g/dL (3.4-5.0); ALBUMIN/GLOBULIN RATIO 0.6 (1.0-1.7); TOTAL BILIRUBIN 0.2 mg/dL (0.2-1.0); TOTAL PROTEIN 7.2 g/dL (6.4-8.2)
--- NOTE | 2019-03-12 15:18 | EKG ---
[facility] [address] [place] [address] Test Date: 2019-03-12 Test Time: 14:48:53 Pat Name: CALDERON YAP Department: Room: Gender: F Ambulatory Care Nurse: : 1970 Requested By: NATIVIDAD HATWHORNE Order Number: [id number] Reading MD: Measurements Intervals [place] Rate: 120 P: -15 WA: 80 QRS: -10 QRSD: 84 T: 37 QT: 320 QTc: 457 Interpretive Statements SINUS TACHYCARDIA LEFTWARD AXIS OTHERWISE NORMAL ECG RI6.01 Unconfirmed report No previous ECG available for comparison
[2019-03-12] MEDS ORDERED: IV NORMAL SALINE 1000ML BAG 1,000 ML IV ONE ×2 (15:30)
[2019-03-12] MEDS ORDERED: cefTRIAXone IV Push 1 GM VIAL. IVP ONE (15:30)
[2019-03-12] MEDS ORDERED: MAGNESIUM SULFATE 4GM 100 ML IV ONE (15:30)
[2019-03-12] MEDS ORDERED: AZITHRMYCN 500MG IVPB FOR OMNI 250 ML IV ONE (15:30)
[2019-03-12] MEDS ORDERED: IV NORMAL SALINE 500ML BAG 500 ML IV ONE (15:30)
--- NOTE | 2019-03-12 16:21 | RAD ---
CHEST PA LATERAL History: Shortness of breath, breathing, COPD Comparison: 02/21/2019 two-view chest x-ray exam. Findings: The cardiomediastinal silhouette is normal. Pulmonary vasculature is normal. The lungs are clear. No pleural effusion or pneumothorax is seen. There is no acute bone abnormality. IMPRESSION: No acute cardiopulmonary process. Electronically signed by: Julien Alva MD (03/12/2019 4:18 PM) [facility]
[2019-03-12] MEDS ORDERED: fentaNYL PF VIAL 100 MCG/2 ML VIAL IV ONE (16:30)
[2019-03-12] MEDS ORDERED: ONDANSETRON ODT 4 MG TAB.RAPDIS. PO PRN (17:15)
[2019-03-12] MEDS ORDERED: POTASSIUM CHLORIDE 20 MEQ TABLET.ER. PO ONE (17:15)
[2019-03-12] MEDS ORDERED: ACETAMINOPHEN 325 MG TABLET. PO PRN (17:15)
[2019-03-12] MEDS ORDERED: ALBUTEROL SULFATE 2.5 MG/3 ML NEBU. INH PRN (17:15)
[2019-03-12] MEDS ORDERED: LABETALOL 20 MG/4 ML DISP.SYRIN. IVP PRN (17:15)
[2019-03-12] MEDS ORDERED: ONDANSETRON PF 4 MG/2 ML VIAL. IV PRN ×2 (17:15)
[2019-03-12] MEDS ORDERED: CALCIUM CARBONATE 500 MG TAB.CHEW PO PRN (17:15)
[2019-03-12] MEDS ORDERED: fentaNYL PF VIAL 100 MCG/2 ML VIAL IV PRN (17:15)
[2019-03-12] MEDS ORDERED: ZOLPIDEM 5 MG TABLET. PO PRN (17:15)
[2019-03-12] MEDS ORDERED: TEMAZEPAM 7.5 MG CAPSULE PO PRN (17:15)
[2019-03-12] MEDS ORDERED: ACETAMINOPHEN/CODEINE 300/30MG TABLET. PO PRN (17:15)
[2019-03-12] MEDS ORDERED: SUMAtriptan SUCCINATE 25 MG TABLET PO PRN (18:00)
[2019-03-12] MEDS ORDERED: hydrOXYzine 25 MG TABLET PO PRN (18:00)
--- NOTE | 2019-03-12 18:13 | PDOC1 ---
History and Physical Date of Admission Date of Admission DATE: 03/12/19 TIME: 18:08 Identification/Chief Complaint Chief Complaint soa Source Source: Caregiver, Chart review, Patient History of Present Illness History of Present Illness 48 AA female, obese PCP DR Cayetano Biswas, SOA, few days, dry cough, sounds nasal and congested, still smokes at least a pack a day, dx COPD on inhalers but not O2 dependent. CXR read as normal, hypoxic on arrival 90s or high 80s with elevated lactate but no source yet, Or at elast UA is pending, MAg low, K low, admitted, BP high 190s!, migraine headache, says BP usually runs high. SHe is wheezy on exam Past Medical History Cardiovascular: CHF, HTN, Hyperlipidemia Pulmonary: Asthma, COPD CENTRAL NERVOUS SYSTEM: Migraine GI: Diverticulosis, GERD Heme/Onc: Anemia NOS, Other Hepatobiliary: No pertinent hx Psych: Anxiety, Depression Musculoskeletal: low back pain Rheumatologic: Gout, Other Infectious disease: No pertinent hx Renal/: Chronic renal insuff Endocrine: Other Past Surgical History Past Surgical History: Appendectomy, Tubal Ligation, Hysterectomy, Other Family History Family History: Asthma, Diabetes, Hypertension Family History: Parent Social History Smoke: 1 pack per day ALCOHOL: social Drugs: Cocaine Current Medications Current Medications Current Medications Albuterol/ Ipratropium (Duoneb) 3 ml STK-MED ONCE .ROUTE ; Start 03/12/19 at 13:53; Stop 03/12/19 at 13:53; Status DC Prednisone (Prednisone) 50 mg 1X ONCE PO Last administered on 03/12/19at 14:46; Start 03/12/19 at 14:15; Stop 03/12/19 at 14:16; Status DC Albuterol Sulfate (Ventolin Neb Soln) 10 mg 1X ONCE CONT NEB Last administered on 03/12/19at 14:08; Start 03/12/19 at 14:15; Stop 03/12/19 at 14:16; Status DC Albuterol Sulfate (Ventolin Neb Soln) 2.5 mg STK-MED ONCE .ROUTE ; Start 03/12/19 at 14:05; Stop 03/12/19 at 14:06; Status DC Albuterol/ Ipratropium (Duoneb) 3 ml 1X ONCE NEB Last administered on 03/12/19at 14:17; Start 03/12/19 at 14:15; Stop 03/12/19 at 14:17; Status DC Sodium Chloride 1,000 ml @ 1,000 mls/hr 1X ONCE IV Last administered on 03/12/19at 15:50; Start 03/12/19 at 15:30; Stop 03/12/19 at 16:29; Status DC Sodium Chloride 1,000 ml @ 1,000 mls/hr 1X ONCE IV Last administered on 03/12/19at 16:32; Start 03/12/19 at 15:30; Stop 03/12/19 at 16:29; Status DC Sodium Chloride 500 ml @ 500 mls/hr 1X ONCE IV Last administered on 03/12/19at 18:03; Start 03/12/19 at 15:30; Stop 03/12/19 at 16:29; Status DC Magnesium Sulfate 100 ml @ 25 mls/hr 1X ONCE IV Last administered on 03/12/19at 16:27; Start 03/12/19 at 15:30; Stop 03/12/19 at 19:29 Azithromycin 250 ml @ 250 mls/hr 1X ONCE IV Last administered on 03/12/19at 15:50; Start 03/12/19 at 15:30; Stop 03/12/19 at 16:29; Status DC Ceftriaxone Sodium (Rocephin) 1 gm 1X ONCE IVP Last administered on 03/12/19at 15:50; Start 03/12/19 at 15:30; Stop 03/12/19 at 15:32; Status DC Fentanyl Citrate (Fentanyl 2ml Vial) 50 mcg 1X ONCE IV Last administered on 03/12/19at 16:45; Start 03/12/19 at 16:30; Stop 03/12/19 at 16:39; Status DC Ondansetron HCl (Zofran) 4 mg PRN Q8HRS PRN IV NAUSEA/VOMITING; Start 03/12/19 at 17:15; Stop 03/12/19 at 17:14; Status DC Fentanyl Citrate (Fentanyl 2ml Vial) 50 mcg PRN Q1HR PRN IV PAIN; Start 03/12/19 at 17:15; Stop 03/13/19 at 17:14 Acetaminophen (Tylenol) 650 mg PRN Q4HRS PRN PO FEVER; Start 03/12/19 at 17:15; Stop 03/13/19 at 17:14 Albuterol/ Ipratropium (Duoneb) 3 ml RTQID NEB ; Start 03/12/19 at 20:00; Stop 03/12/19 at 17:13; Status DC Labetalol HCl (Normodyne Iv Push) 20 mg PRN Q2HR PRN IVP HYPERTENSION; Start 03/12/19 at 17:15 Albuterol/ Ipratropium (Duoneb) 3 ml RTQID NEB ; Start 03/12/19 at 20:00 Acetaminophen/ Codeine Phosphate (Tylenol #3) 1 tab PRN Q6HRS PRN PO MODERATE PAIN; Start 03/12/19 at 17:15 Ondansetron HCl (Zofran) 4 mg PRN Q6HRS PRN IV NAUSEA/VOMITING; Start 03/12/19 at 17:15 Calcium Carbonate/ Glycine (Tums) 500 mg PRN AFTMEALHC PRN PO INDIGESTION; Start 03/12/19 at 17:15 Zolpidem Tartrate (Ambien) 5 mg PRN QHS PRN PO INSOMNIA; Start 03/12/19 at 17:15 Temazepam (Restoril) 7.5 mg PRN QHS PRN PO INSOMNIA; Start 03/12/19 at 17:15 Potassium Chloride (Klor-Con) 40 meq 1X ONCE PO ; Start 03/12/19 at 17:15; Stop 03/12/19 at 17:16; Status DC Albuterol Sulfate (Ventolin Neb Soln) 2.5 mg PRN Q6HRS PRN INH SHORTNESS OF BREATH; Start 03/12/19 at 17:15 Allopurinol (Zyloprim) 100 mg DAILY PO ; Start 03/13/19 at 09:00 Amlodipine Besylate (Norvasc) 10 mg DAILY PO ; Start 03/13/19 at 09:00 Aripiprazole (Abilify) 5 mg DAILY PO ; Start 03/13/19 at 09:00 Atorvastatin Calcium (Lipitor) 40 mg QHS PO ; Start 03/12/19 at 21:00 Colchicine (Colcrys) 0.6 mg DAILY PO ; Start 03/13/19 at 09:00 EZETIMIBE (Zetia) 10 mg DAILY PO ; Start 03/13/19 at 09:00 Ferrous Sulfate (Feosol) 325 mg DAILY PO ; Start 03/13/19 at 09:00 Fluticasone Propionate (Flonase) 2 spray DAILY NS ; Start 03/13/19 at 09:00; Status UNV Hydralazine HCl (Apresoline) 50 mg TID PO ; Start 03/12/19 at 21:00 Acetaminophen/ Hydrocodone Bitart (Lortab 5/325) 1 tab PRN Q6HRS PRN PO MODERATE PAIN (2nd Choice); Start 03/12/19 at 17:15 Ondansetron HCl (Zofran Odt) 4 mg PRN Q4HRS PRN PO NAUSEA; Start 03/12/19 at 17:15 Hydroxyzine HCl (Atarax) 25 mg PRN Q6HRS PRN PO ITCHING; Start 03/12/19 at 18:00 Cetirizine HCl (ZyrTEC) 10 mg DAILY PO ; Start 03/13/19 at 09:00 Losartan Potassium (Cozaar) 50 mg DAILY PO ; Start 03/13/19 at 09:00 Meloxicam (Mobic) 15 mg DAILY PO ; Start 03/13/19 at 09:00 Metoprolol Succinate (Toprol Xl) 200 mg QHS PO ; Start 03/12/19 at 21:00 Multivitamins (Thera M Plus) 1 tab DAILY PO ; Start 03/13/19 at 09:00 Pantoprazole Sodium (Protonix) 40 mg DAILYAC PO ; Start 03/13/19 at 07:30 Cyclobenzaprine HCl (Flexeril) 10 mg TID PO ; Start 03/12/19 at 21:00 Potassium Chloride (Klor-Con) 20 meq DAILYWBKFT PO ; Start 03/13/19 at 08:00 Sumatriptan Succinate (Imitrex) 50 mg PRN DAILY PRN PO MIGRAINE HEADACHE; Start 03/12/19 at 18:00 Benzonatate (Tessalon Perle) 100 mg [id number] PO ; Start 03/12/19 at 21:00 Methylprednisolone Sodium Succinate (SOLU-Medrol 40MG VIAL) 40 mg Q8HRS IV ; Start 03/12/19 at 22:00 Hydrochlorothiazide (Microzide) 12.5 mg DAILY PO ; Start 03/13/19 at 09:00 Active Scripts Active Orphenadrine Citrate 100 Mg Tablet.er 1 Tab PO BID Hydrocodone-Apap 5-325 (Hydrocodone Bit/Acetaminophen) 1 Tab Tablet 1 Tab PO PRN Q6HRS PRN Doxycycline Hyclate 100 Mg Tablet 100 Mg PO BID Prednisone (Prednisone) 10 Mg Tablet 10 Mg PO UD Take 5 tablets by mouth daily for 2 days, then take 4 tablets by mouth daily for 2 days, then take 3 tablets by mouth daily for 2 days, then take 2 tablets by mouth daily for 2 days, then take 1 tablets by mouth daily for 2 days, then stop. [guaiFENesin/CODEINE 100mg/10mg] 5 ML Liquid 5 Ml PO PRN Q6HRS PRN Proair Hfa Inhaler (Albuterol Sulfate) 8.5 Gm Hfa.aer.ad 1 Puff INH PRN Q6HRS PRN Omeprazole 20 Mg Tablet.dr 1 Tab PO DAILY Hydralazine Hcl 50 Mg Tablet 50 Mg PO TID 30 Days Ventolin Hfa Inhaler (Albuterol Sulfate) 18 Gm Hfa.aer.ad 2 Puff INH Q4HRS Zetia (Ezetimibe) 10 Mg Tablet 10 Mg PO DAILY 90 Days Allopurinol 100 Mg Tablet 100 Mg PO DAILY 90 Days Atorvastatin Calcium 40 Mg Tablet 40 Mg PO QHS 30 Days Amlodipine Besylate 10 Mg Tablet 10 Mg PO DAILY 30 Days Reported Fluticasone Propionate Nasal [place]rem (Fluticasone Propionate) 16 Gm Orem.susp 2 Orem NS DAILY Loratadine 10 Mg Tablet 1 Tab PO DAILY Aripiprazole 5 Mg Tablet 5 Mg PO DAILY Potassium Chloride 20 Meq Tablet.er 20 Meq PO DAILY Ondansetron Odt (Ondansetron) 4 Mg Tab.rapdis 1 Tab PO PRN Q4HRS PRN Metoprolol Succinate ( Xl ) (Metoprolol Succinate) 200 Mg Tab.er.24h 1 Tab PO HS Losartan-Hctz 50-12.5 Mg Tab (Losartan/Hydrochlorothiazide) 1 Each Tablet 1 Tab PO DAILY Symbicort 160-4.5 Mcg Inhaler (Budesonide/Formoterol Fumarate) 10.2 Gm Hfa.aer.ad 2 Puff IH BID Vistaril (Hydroxyzine Pamoate) 25 Mg Capsule 25 Mg PO PRN PRN Meloxicam 15 Mg Tablet 15 Mg PO DAILY Ferrous Sulfate 325 Mg Tablet 325 Mg PO DAILY Colcrys (Colchicine) 0.6 Mg Tablet 0.6 Mg PO DAILY Imitrex (Sumatriptan Succinate) 50 Mg Tablet 50 Mg PO ONCE PRN Multi-Day Vitamins (Multivitamin) 1 Each Tablet 1 Tab PO DAILY Allergies Allergies: Coded Allergies: lisinopril (Verified Allergy, Intermediate, COUGH, 01/07/19) I S O L A T I O N *CONTACT* (Verified Allergy, Unknown, 01/07/19) mrsa + ROS Review of System as per HPI< cogestion, soa, dry cough, no fevers (she does feel warm and has wheezing), no abd pain, n,v,d Physical Exam General: mild distress HEENT: Atraumatic, PERRLA Lungs: Normal air movement, Other (SCE< wheezy, no crackles, diminished at bases) Heart: S1S2, RRR, no thrills, no rubs, no gallops, no murmurs Cardiovascular: S1, S2 Breasts: Normal, Rt breast nml w/o mass, Lt breast nml w/o mass, Nipples normal Abdomen: Normal bowel sounds, Soft, No tenderness, No hepatosplenomegaly, No masses Rectal Exam: not examined PELVIC: Nml ext genitalia Extremities: No clubbing, No cyanosis, No edema, Normal pulses, No tenderness/swelling Skin: No rashes, No breakdown, No significant lesion Neuro: Normal gait, Normal speech, Strength at 5/5 X4 ext, Normal tone, Sensation intact, Cranial nerves 3-12 NL, Reflexes 2+ Psych/Mental Status: Mental status NL, Mood NL Vitals Vitals Vital Signs Date Time Temp Pulse Resp B/P (MAP) Pulse Ox O2 Delivery O2 Flow Rate FiO2 03/12/19 15:14 128 18 192/79 (116) 100 Aerosol Mask 03/12/19 13:43 98.1 98.1 Labs Labs Laboratory Tests Test 03/12/19 14:34 White Blood Count 9.9 x10^3/uL (4.0-11.0) Red Blood Count 4.25 x10^6/uL (3.50-5.40) Hemoglobin 12.9 g/dL (12.0-15.5) Hematocrit 38.0 % (36.0-47.0) Mean Corpuscular Volume 89 fL (79-100) Mean Corpuscular Hemoglobin 30 pg (25-35) Mean Corpuscular Hemoglobin Concent 34 g/dL (31-37) Red Cell Distribution Width 13.2 % (11.5-14.5) Platelet Count 291 x10^3/uL (140-400) Neutrophils (%) (Auto) 59 % (31-73) Lymphocytes (%) (Auto) 31 % (24-48) Monocytes (%) (Auto) 8 % (0-9) Eosinophils (%) (Auto) 2 % (0-3) Basophils (%) (Auto) 1 % (0-3) Neutrophils # (Auto) 5.8 x10^3/uL (1.8-7.7) Lymphocytes # (Auto) 3.0 x10^3/uL (1.0-4.8) Monocytes # (Auto) 0.8 x10^3/uL (0.0-1.1) Eosinophils # (Auto) 0.2 x10^3/uL (0.0-0.7) Basophils # (Auto) 0.1 x10^3/uL (0.0-0.2) Sodium Level 143 mmol/L (136-145) Potassium Level 3.3 mmol/L (3.5-5.1) Chloride Level 104 mmol/L (98-107) Carbon Dioxide Level 19 mmol/L (21-32) Anion Gap 20 (6-14) Blood Urea Nitrogen 3 mg/dL (7-20) Creatinine 0.6 mg/dL (0.6-1.0) Estimated GFR (Cockcroft-Gault) 129.7 BUN/Creatinine Ratio 5 (6-20) Glucose Level 142 mg/dL (70-99) Lactic Acid Level 4.7 mmol/L (0.4-2.0) Calcium Level 8.8 mg/dL (8.5-10.1) Magnesium Level 1.6 mg/dL (1.8-2.4) Total Bilirubin 0.2 mg/dL (0.2-1.0) Aspartate Amino Transf (AST/SGOT) 48 U/L (15-37) Alanine Aminotransferase (ALT/SGPT) 59 U/L (14-59) Alkaline Phosphatase 128 U/L (46-116) Troponin I Quantitative < 0.017 ng/mL (0.000-0.055) IK-Pid-A-Type Natriuretic Peptide 44 pg/mL (0-124) Total Protein 7.2 g/dL (6.4-8.2) Albumin 2.7 g/dL (3.4-5.0) Albumin/Globulin Ratio 0.6 (1.0-1.7) Laboratory Tests Test 03/12/19 14:34 White Blood Count 9.9 x10^3/uL (4.0-11.0) Red Blood Count 4.25 x10^6/uL (3.50-5.40) Hemoglobin 12.9 g/dL (12.0-15.5) Hematocrit 38.0 % (36.0-47.0) Mean Corpuscular Volume 89 fL (79-100) Mean Corpuscular Hemoglobin 30 pg (25-35) Mean Corpuscular Hemoglobin Concent 34 g/dL (31-37) Red Cell Distribution Width 13.2 % (11.5-14.5) Platelet Count 291 x10^3/uL (140-400) Neutrophils (%) (Auto) 59 % (31-73) Lymphocytes (%) (Auto) 31 % (24-48) Monocytes (%) (Auto) 8 % (0-9) Eosinophils (%) (Auto) 2 % (0-3) Basophils (%) (Auto) 1 % (0-3) Neutrophils # (Auto) 5.8 x10^3/uL (1.8-7.7) Lymphocytes # (Auto) 3.0 x10^3/uL (1.0-4.8) Monocytes # (Auto) 0.8 x10^3/uL (0.0-1.1) Eosinophils # (Auto) 0.2 x10^3/uL (0.0-0.7) Basophils # (Auto) 0.1 x10^3/uL (0.0-0.2) Sodium Level 143 mmol/L (136-145) Potassium Level 3.3 mmol/L (3.5-5.1) Chloride Level 104 mmol/L (98-107) Carbon Dioxide Level 19 mmol/L (21-32) Anion Gap 20 (6-14) Blood Urea Nitrogen 3 mg/dL (7-20) Creatinine 0.6 mg/dL (0.6-1.0) Estimated GFR (Cockcroft-Gault) 129.7 BUN/Creatinine Ratio 5 (6-20) Glucose Level 142 mg/dL (70-99) Lactic Acid Level 4.7 mmol/L (0.4-2.0) Calcium Level 8.8 mg/dL (8.5-10.1) Magnesium Level 1.6 mg/dL (1.8-2.4) Total Bilirubin 0.2 mg/dL (0.2-1.0) Aspartate Amino Transf (AST/SGOT) 48 U/L (15-37) Alanine Aminotransferase (ALT/SGPT) 59 U/L (14-59) Alkaline Phosphatase 128 U/L (46-116) Troponin I Quantitative < 0.017 ng/mL (0.000-0.055) AR-Lyz-E-Type Natriuretic Peptide 44 pg/mL (0-124) Total Protein 7.2 g/dL (6.4-8.2) Albumin 2.7 g/dL (3.4-5.0) Albumin/Globulin Ratio 0.6 (1.0-1.7) VTE Prophylaxis Ordered VTE Prophylaxis Devices: Yes VTE Pharmacological Prophylaxi: Yes Assessment/Plan Assessment/Plan 1. Acute hypoxic respi failure, COPD exacerb, no consolidation on CXR 2. Tobaccoism 3. HTN, accelerated 4. Hypokalemia 3,.3 5. Hypomagnesemia 1,7 6. Elevated lactate PLAN: 2MN tele floor that allows IVprn labetolol pushes I have reconciled home meds ADA diet, SSI Solu IV Pulmo consult I held off abx Cough med Solomon patch SMoking cessation O2 support sats 92% ok seen at ER FULL CODE MEDINA COVINGTON MD Mar 12, 2019 18:13
[2019-03-12] MEDS ORDERED: NICOTINE 21MG PATCH. TD PRN (18:15)
[2019-03-12 19:48] VITALS: BP 175/96
[2019-03-12] MEDS: IPRATRPIUM/ALBUTEROL 0.5/2.5MG 3 ML NEBU. NEB SCH (19:52)
[2019-03-12] MEDS ORDERED: IPRATRPIUM/ALBUTEROL 0.5/2.5MG 3 ML NEBU. NEB SCH (20:00)
[2019-03-12] MEDS: ATORVASTATIN CALCIUM 40 MG TABLET. PO SCH (21:00)
[2019-03-12] MEDS: methylPREDNISolone SOD SUCC PF 40 MG/ML VIAL. IV SCH (21:23)
[2019-03-12] MEDS: HYDROcodone/APAP 5/325MG 1 TAB TABLET PO PRN (21:24)
[2019-03-12] MEDS: CYCLOBENZAPRINE 10 MG TABLET. PO SCH (21:24)
[2019-03-12] MEDS: BENZONATATE 100 MG CAPSULE. PO SCH (21:24)
[2019-03-12] MEDS: METOPROLOL SUCC 24HR ER 100 MG TAB.ER.24H. PO SCH (21:25)
[2019-03-12] MEDS: IV NORMAL SALINE 1000ML BAG 1,000 ML IV SCH (21:26)
[2019-03-12 23:55] VITALS: BP_SYST 128; BP_SYST 151; BP_DIAS 82; BP_DIAS 98
[2019-03-13 03:23] VITALS: BP 168/73
[2019-03-13] MEDS: HYDROcodone/APAP 5/325MG 1 TAB TABLET PO PRN ×3 (04:12→20:29)
[2019-03-13 04:27] LABS: BILIRUBIN,URINE NEGATIVE (NEG); CLARITY,URINE CLEAR; COLOR,URINE YELLOW; NITRITE,URINE NEGATIVE (NEG); PH,URINE 5.5; PROTEIN,URINE NEGATIVE (NEG-TRACE); UROBILINOGEN,URINE 0.2 mg/dL (0.2 mg/dL)
[2019-03-13 04:34] LABS: BARBITURATES NEG (NEG); BENZODIAZEPINES NEG (NEG); CANNABINOIDS NEG (NEG); COCAINE NEG (NEG); METHADONE NEG (NEG); OPIATES NEG (NEG); PHENCYCLIDINE NEG (NEG)
[2019-03-13 04:36] LABS: AMPHETAMINE/METHAMPHETAMINE NEG (NEG)
[2019-03-13 04:42] LABS: BACTERIA,URINE 0 /HPF (0-FEW); RBC,URINE 0 /HPF (0-2); SQUAMOUS EPITHELIAL CELL,UR FEW /LPF; WBC,URINE 0 /HPF (0-4)
[2019-03-13 04:55] LABS: CALCIUM 7.9 mg/dL (8.5-10.1); CREATININE 0.9 mg/dL (0.6-1.0); GFR 81.2; MAGNESIUM 2.1 mg/dL (1.8-2.4); POTASSIUM 4.3 mmol/L (3.5-5.1)
[2019-03-13] MEDS: methylPREDNISolone SOD SUCC PF 40 MG/ML VIAL. IV SCH ×3 (06:33→22:14)
[2019-03-13 07:00] VITALS: BP 170/96
[2019-03-13] MEDS: PANTOPRAZOLE 40 MG TABLET.DR. PO SCH (07:30)
[2019-03-13] MEDS ORDERED: POTASSIUM CHLORIDE 20 MEQ TABLET.ER. PO SCH (08:00)
[2019-03-13] MEDS: IPRATRPIUM/ALBUTEROL 0.5/2.5MG 3 ML NEBU. NEB SCH ×4 (08:13→21:01)
[2019-03-13] MEDS: FLUTICASONE 50MCG/NASAL SPRAY 16GM BOTTLE. NS SCH (08:49)
[2019-03-13] MEDS: ARIPiprazole 5 MG TABLET PO SCH (08:50)
[2019-03-13] MEDS: COLCHICINE 0.6 MG TABLET PO SCH (08:51)
[2019-03-13] MEDS: FERROUS SULFATE 325 MG TABLET. PO SCH (08:52)
[2019-03-13] MEDS: LOSARTAN POTASSIUM 50 MG TABLET. PO SCH (08:52)
[2019-03-13] MEDS: CYCLOBENZAPRINE 10 MG TABLET. PO SCH ×3 (08:52→20:28)
[2019-03-13] MEDS: hydroCHLOROthiazide 12.5 MG CAPSULE PO SCH (08:53)
[2019-03-13] MEDS: amLODIPine BESYLATE 10 MG TABLET PO SCH (08:53)
[2019-03-13] MEDS: MULTIVITAMIN with MINERAL TABLET. PO SCH (08:54)
[2019-03-13] MEDS: BENZONATATE 100 MG CAPSULE. PO SCH ×3 (08:54→20:28)
[2019-03-13] MEDS: MELOXICAM 7.5 MG TABLET PO SCH (08:54)
[2019-03-13] MEDS: EZETIMIBE 10 MG TABLET. PO SCH (08:54)
[2019-03-13] MEDS: IV NORMAL SALINE 1000ML BAG 1,000 ML IV SCH ×2 (08:55→18:16)
[2019-03-13] MEDS: CETIRIZINE HCL 10 MG TABLET. PO SCH (08:55)
[2019-03-13] MEDS: ALLOPURINOL 100 MG TABLET. PO SCH (08:55)
--- NOTE | 2019-03-13 09:39 | NUR ---
IP: Pt has had a hx of + mrsa screens since 2014 with most recent on 11/05/18. Pt to be in contact precautions. Recommend a mrsa screen be obtained and then begin Nozin/CHG decolonization.
--- NOTE | 2019-03-13 10:24 | CONS ---
DATE OF CONSULTATION: PULMONARY CONSULTATION ATTENDING PHYSICIAN: Dr. Longo. REASON FOR CONSULTATION: COPD exacerbation. HISTORY OF PRESENT ILLNESS: The patient is a 48-year-old female who has a long history of tobacco use and has not quit cigarettes. She has frequent hospitalizations for COPD exacerbation and bronchospasm. She was seen by her PCP with shortness of breath. She had a dry cough. No fever, no chills, no chest pain. She did use her inhalers without any improvement. The patient was also noted to be hypoxic on arrival with saturations in the mid 80s. Her chest x-ray did not reveal any definite infiltrate. She was wheezy. As a result, she was admitted with COPD exacerbation. Denies any headaches, no nausea, vomiting, no diarrhea. No focal weakness, no skin rash and no edema of the lower extremities. PAST MEDICAL HISTORY: History of COPD with ongoing tobacco use and probably overlapped with asthma, history of CHF, hypertension, hyperlipidemia, migraines, GERD. PAST SURGICAL HISTORY: Tubal ligation, appendectomy, hysterectomy. FAMILY HISTORY: Asthma, diabetes and hypertension. SOCIAL HISTORY: Continues to smoke less than 1 pack per day. Social alcohol. ALLERGIES: LISINOPRIL. MEDICATIONS: Reviewed as listed in the MRAD including IV Solu-Medrol. She is also on metoprolol 200 mg at bedtime and DuoNebs. REVIEW OF SYSTEMS: Twelve-point system obtained. Pertinent positives discussed in my history of present illness, otherwise noncontributory. All systems that were negative were reviewed as well. PHYSICAL EXAMINATION: VITAL SIGNS: Stable. Blood pressure on the high side, afebrile, pulse ox 100% on room air. NECK: Supple. LUNGS: With diminished breath sounds, but no wheezes. CARDIOVASCULAR: Regular rate. ABDOMEN: Soft, nontender. EXTREMITIES: With no pitting edema. LABORATORY DATA: Reviewed. Lactic acid was 4.4. Urine drug screen positive for alcohol. White cell count 9.9. IMPRESSION: 1. Acute exacerbation of chronic obstructive pulmonary disease in a patient who has chronic obstructive pulmonary disease overlapped with reactive airway disease, but continues to smoke cigarettes and that has been her ongoing triggers. 2. Probably acute viral bronchitis. No definite consolidation seen on the chest x-ray. RECOMMENDATIONS: 1. Continue with present DuoNebs. 2. Add Pulmicort. 3. Continue IV steroids. 4. At present, her wheezing appears to have resolved; however, if the wheezing reoccurs, then I would consider holding metoprolol. She is currently on 200 mg a day. 5. If it remains stable, then could be discharged in 24 hours. 6. Smoking cessation counseling again provided. MALIK HAGER MD DR: KATIE/keith JOB#: [id number] / [id number]
[2019-03-13 10:57] VITALS: BP 177/102
--- NOTE | 2019-03-13 10:57 | PDOC ---
PROGRESS NOTES History of Present Illness History of Present Illness VTE Prophylaxis Ordered VTE Prophylaxis Devices: Yes VTE Pharmacological Prophylaxi: Yes Assessment/Plan 1. Acute hypoxic respi failure, COPD exac, no consolidation on CXR 2. Tobaccoism 3. HTN, accelerated, REMAINS UNCONTROLLED 4. Hypokalemia 3,.3 5. Hypomagnesemia 1,7 6. Elevated lactate PLAN: 2MN tele floor that allows IVprn labetolol pushes I have reconciled home meds ADA diet, SSI Solu IV Pulmo consult Cough med Solomon patch SMoking cessation EDUCATION PROVIDED O2 support PRN REPLACE K FULL CODE INC HYDRALAZINE TO 75 MG PO TID 29 MIN PT EXAM, CHART REVIEW, > 50% OF TIME SPENT WITH EXAM, CHART REVIEW, PT CARE COORDINATION Vitals Vitals Vital Signs Date Time Temp Pulse Resp B/P (MAP) Pulse Ox O2 Delivery O2 Flow Rate FiO2 03/13/19 08:59 95 170/96 03/13/19 08:14 100 Room Air 03/13/19 07:00 97.4 18 97.4 Physical Exam General: Alert, Oriented X3, Cooperative, mild distress Heart: Regular rate Lungs: Wheezing Abdomen: Normal bowel sounds, Soft, No tenderness, No hepatosplenomegaly, No masses Extremities: No clubbing, No cyanosis, No edema, Normal pulses, No tenderness/swelling Skin: No rashes, No breakdown, No significant lesion Labs LABS PATIENT: CALDERON YAP ACCT: [id number] LOC: [address] [place] [address] U: [id number] AGE/SX: 48/F ROOM: 664 RE03/12/[address]: MEDINA COVINGTON MD : 1970 BED: 1 DIS: STATUS: ADM IN TLOC: SPEC #: [id number] BECKA: 03/12/19 STATUS: RES REQ #: [id number] RECD: 03/12/[address]: NATIVIDAD HAWTHRONE APRN SOURCE: BLOOD ENTR: 03/12/19-[address]: Bernie ANTHONY MD [facility]: ORDERED: BCULT Procedure Result --------- --- BLOOD CULTURE Preliminary NO GROWTH AFTER 1 DAY Laboratory Tests Test 03/12/19 14:34 03/12/19 19:15 03/12/19 21:43 03/13/19 03:35 White Blood Count 9.9 x10^3/uL (4.0-11.0) Red Blood Count 4.25 x10^6/uL (3.50-5.40) Hemoglobin 12.9 g/dL (12.0-15.5) Hematocrit 38.0 % (36.0-47.0) Mean Corpuscular Volume 89 fL (79-100) Mean Corpuscular Hemoglobin 30 pg (25-35) Mean Corpuscular Hemoglobin Concent 34 g/dL (31-37) Red Cell Distribution Width 13.2 % (11.5-14.5) Platelet Count 291 x10^3/uL (140-400) Neutrophils (%) (Auto) 59 % (31-73) Lymphocytes (%) (Auto) 31 % (24-48) Monocytes (%) (Auto) 8 % (0-9) Eosinophils (%) (Auto) 2 % (0-3) Basophils (%) (Auto) 1 % (0-3) Neutrophils # (Auto) 5.8 x10^3/uL (1.8-7.7) Lymphocytes # (Auto) 3.0 x10^3/uL (1.0-4.8) Monocytes # (Auto) 0.8 x10^3/uL (0.0-1.1) Eosinophils # (Auto) 0.2 x10^3/uL (0.0-0.7) Basophils # (Auto) 0.1 x10^3/uL (0.0-0.2) Sodium Level 143 mmol/L (136-145) 138 mmol/L (136-145) Potassium Level 3.3 mmol/L (3.5-5.1) 4.3 mmol/L (3.5-5.1) Chloride Level 104 mmol/L (98-107) 105 mmol/L (98-107) Carbon Dioxide Level 19 mmol/L (21-32) 21 mmol/L (21-32) Anion Gap 20 (6-14) 12 (6-14) Blood Urea Nitrogen 3 mg/dL (7-20) 8 mg/dL (7-20) Creatinine 0.6 mg/dL (0.6-1.0) 0.9 mg/dL (0.6-1.0) Estimated GFR (Cockcroft-Gault) 129.7 81.2 BUN/Creatinine Ratio 5 (6-20) Glucose Level 142 mg/dL (70-99) 222 mg/dL (70-99) Lactic Acid Level 4.7 mmol/L (0.4-2.0) 4.2 mmol/L (0.4-2.0) 4.4 mmol/L (0.4-2.0) Calcium Level 8.8 mg/dL (8.5-10.1) 7.9 mg/dL (8.5-10.1) Magnesium Level 1.6 mg/dL (1.8-2.4) 2.1 mg/dL (1.8-2.4) Total Bilirubin 0.2 mg/dL (0.2-1.0) Aspartate Amino Transf (AST/SGOT) 48 U/L (15-37) Alanine Aminotransferase (ALT/SGPT) 59 U/L (14-59) Alkaline Phosphatase 128 U/L (46-116) Troponin I Quantitative < 0.017 ng/mL (0.000-0.055) < 0.017 ng/mL (0.000-0.055) AK-[id number]-Type Natriuretic Peptide 44 pg/mL (0-124) Total Protein 7.2 g/dL (6.4-8.2) Albumin 2.7 g/dL (3.4-5.0) Albumin/Globulin Ratio 0.6 (1.0-1.7) Glucose (Fingerstick) 199 mg/dL (70-99) Test 03/13/19 04:10 Urine Collection Type Unknown Urine Color Yellow Urine Clarity Clear Urine pH 5.5 Urine Specific [place] 1.010 Urine Protein Negative mg/dL (NEG-TRACE) Urine Glucose (UA) Negative mg/dL (NEG) Urine Ketones (Stick) Negative mg/dL (NEG) Urine Blood Negative (NEG) Urine Nitrite Negative (NEG) Urine Bilirubin Negative (NEG) Urine Urobilinogen Dipstick 0.2 mg/dL (0.2 mg/dL) Urine Leukocyte Esterase Negative (NEG) Urine RBC 0 /HPF (0-2) Urine WBC 0 /HPF (0-4) Urine Squamous Epithelial Cells Few /LPF Urine Bacteria 0 /HPF (0-FEW) Urine Mucus Slight /LPF Urine Opiates Screen Neg (NEG) Urine Methadone Screen Neg (NEG) Urine Barbiturates Neg (NEG) Urine Phencyclidine Screen Neg (NEG) Urine Amphetamine/Methamphetamine Neg (NEG) Urine Benzodiazepines Screen Neg (NEG) Urine Cocaine Screen Neg (NEG) Urine Cannabinoids Screen Neg (NEG) Urine Ethyl Alcohol Pos (NEG) Assessment and Plan Assessmemt and Plan Problems Medical Problems: (1) Acute respiratory failure with hypoxia Status: Acute (2) COPD exacerbation Status: Acute (3) Hypokalemia Status: Acute (4) Hypomagnesemia Status: Acute Comment Review of Relevant I have reviewed the following items josep (where applicable) has been applied. Labs Laboratory Tests Test 03/12/19 14:34 03/12/19 19:15 03/12/19 21:43 03/13/19 03:35 White Blood Count 9.9 x10^3/uL (4.0-11.0) Red Blood Count 4.25 x10^6/uL (3.50-5.40) Hemoglobin 12.9 g/dL (12.0-15.5) Hematocrit 38.0 % (36.0-47.0) Mean Corpuscular Volume 89 fL (79-100) Mean Corpuscular Hemoglobin 30 pg (25-35) Mean Corpuscular Hemoglobin Concent 34 g/dL (31-37) Red Cell Distribution Width 13.2 % (11.5-14.5) Platelet Count 291 x10^3/uL (140-400) Neutrophils (%) (Auto) 59 % (31-73) Lymphocytes (%) (Auto) 31 % (24-48) Monocytes (%) (Auto) 8 % (0-9) Eosinophils (%) (Auto) 2 % (0-3) Basophils (%) (Auto) 1 % (0-3) Neutrophils # (Auto) 5.8 x10^3/uL (1.8-7.7) Lymphocytes # (Auto) 3.0 x10^3/uL (1.0-4.8) Monocytes # (Auto) 0.8 x10^3/uL (0.0-1.1) Eosinophils # (Auto) 0.2 x10^3/uL (0.0-0.7) Basophils # (Auto) 0.1 x10^3/uL (0.0-0.2) Sodium Level 143 mmol/L (136-145) 138 mmol/L (136-145) Potassium Level 3.3 mmol/L (3.5-5.1) 4.3 mmol/L (3.5-5.1) Chloride Level 104 mmol/L (98-107) 105 mmol/L (98-107) Carbon Dioxide Level 19 mmol/L (21-32) 21 mmol/L (21-32) Anion Gap 20 (6-14) 12 (6-14) Blood Urea Nitrogen 3 mg/dL (7-20) 8 mg/dL (7-20) Creatinine 0.6 mg/dL (0.6-1.0) 0.9 mg/dL (0.6-1.0) Estimated GFR (Cockcroft-Gault) 129.7 81.2 BUN/Creatinine Ratio 5 (6-20) Glucose Level 142 mg/dL (70-99) 222 mg/dL (70-99) Lactic Acid Level 4.7 mmol/L (0.4-2.0) 4.2 mmol/L (0.4-2.0) 4.4 mmol/L (0.4-2.0) Calcium Level 8.8 mg/dL (8.5-10.1) 7.9 mg/dL (8.5-10.1) Magnesium Level 1.6 mg/dL (1.8-2.4) 2.1 mg/dL (1.8-2.4) Total Bilirubin 0.2 mg/dL (0.2-1.0) Aspartate Amino Transf (AST/SGOT) 48 U/L (15-37) Alanine Aminotransferase (ALT/SGPT) 59 U/L (14-59) Alkaline Phosphatase 128 U/L (46-116) Troponin I Quantitative < 0.017 ng/mL (0.000-0.055) < 0.017 ng/mL (0.000-0.055) CA-Tvg-U-Type Natriuretic Peptide 44 pg/mL (0-124) Total Protein 7.2 g/dL (6.4-8.2) Albumin 2.7 g/dL (3.4-5.0) Albumin/Globulin Ratio 0.6 (1.0-1.7) Glucose (Fingerstick) 199 mg/dL (70-99) Test 03/13/19 04:10 Urine Collection Type Unknown Urine Color Yellow Urine Clarity Clear Urine pH 5.5 Urine Specific [place] 1.010 Urine Protein Negative mg/dL (NEG-TRACE) Urine Glucose (UA) Negative mg/dL (NEG) Urine Ketones (Stick) Negative mg/dL (NEG) Urine Blood Negative (NEG) Urine Nitrite Negative (NEG) Urine Bilirubin Negative (NEG) Urine Urobilinogen Dipstick 0.2 mg/dL (0.2 mg/dL) Urine Leukocyte Esterase Negative (NEG) Urine RBC 0 /HPF (0-2) Urine WBC 0 /HPF (0-4) Urine Squamous Epithelial Cells Few /LPF Urine Bacteria 0 /HPF (0-FEW) Urine Mucus Slight /LPF Urine Opiates Screen Neg (NEG) Urine Methadone Screen Neg (NEG) Urine Barbiturates Neg (NEG) Urine Phencyclidine Screen Neg (NEG) Urine Amphetamine/Methamphetamine Neg (NEG) Urine Benzodiazepines Screen Neg (NEG) Urine Cocaine Screen Neg (NEG) Urine Cannabinoids Screen Neg (NEG) Urine Ethyl Alcohol Pos (NEG) Laboratory Tests Test 03/12/19 14:34 03/12/19 19:15 03/12/19 21:43 03/13/19 03:35 White Blood Count 9.9 x10^3/uL (4.0-11.0) Red Blood Count 4.25 x10^6/uL (3.50-5.40) Hemoglobin 12.9 g/dL (12.0-15.5) Hematocrit 38.0 % (36.0-47.0) Mean Corpuscular Volume 89 fL (79-100) Mean Corpuscular Hemoglobin 30 pg (25-35) Mean Corpuscular Hemoglobin Concent 34 g/dL (31-37) Red Cell Distribution Width 13.2 % (11.5-14.5) Platelet Count 291 x10^3/uL (140-400) Neutrophils (%) (Auto) 59 % (31-73) Lymphocytes (%) (Auto) 31 % (24-48) Monocytes (%) (Auto) 8 % (0-9) Eosinophils (%) (Auto) 2 % (0-3) Basophils (%) (Auto) 1 % (0-3) Neutrophils # (Auto) 5.8 x10^3/uL (1.8-7.7) Lymphocytes # (Auto) 3.0 x10^3/uL (1.0-4.8) Monocytes # (Auto) 0.8 x10^3/uL (0.0-1.1) Eosinophils # (Auto) 0.2 x10^3/uL (0.0-0.7) Basophils # (Auto) 0.1 x10^3/uL (0.0-0.2) Sodium Level 143 mmol/L (136-145) 138 mmol/L (136-145) Potassium Level 3.3 mmol/L (3.5-5.1) 4.3 mmol/L (3.5-5.1) Chloride Level 104 mmol/L (98-107) 105 mmol/L (98-107) Carbon Dioxide Level 19 mmol/L (21-32) 21 mmol/L (21-32) Anion Gap 20 (6-14) 12 (6-14) Blood Urea Nitrogen 3 mg/dL (7-20) 8 mg/dL (7-20) Creatinine 0.6 mg/dL (0.6-1.0) 0.9 mg/dL (0.6-1.0) Estimated GFR (Cockcroft-Gault) 129.7 81.2 BUN/Creatinine Ratio 5 (6-20) Glucose Level 142 mg/dL (70-99) 222 mg/dL (70-99) Lactic Acid Level 4.7 mmol/L (0.4-2.0) 4.2 mmol/L (0.4-2.0) 4.4 mmol/L (0.4-2.0) Calcium Level 8.8 mg/dL (8.5-10.1) 7.9 mg/dL (8.5-10.1) Magnesium Level 1.6 mg/dL (1.8-2.4) 2.1 mg/dL (1.8-2.4) Total Bilirubin 0.2 mg/dL (0.2-1.0) Aspartate Amino Transf (AST/SGOT) 48 U/L (15-37) Alanine Aminotransferase (ALT/SGPT) 59 U/L (14-59) Alkaline Phosphatase 128 U/L (46-116) Troponin I Quantitative < 0.017 ng/mL (0.000-0.055) < 0.017 ng/mL (0.000-0.055) WK-Jhl-U-Type Natriuretic Peptide 44 pg/mL (0-124) Total Protein 7.2 g/dL (6.4-8.2) Albumin 2.7 g/dL (3.4-5.0) Albumin/Globulin Ratio 0.6 (1.0-1.7) Glucose (Fingerstick) 199 mg/dL (70-99) Test 03/13/19 04:10 Urine Collection Type Unknown Urine Color Yellow Urine Clarity Clear Urine pH 5.5 Urine Specific [place] 1.010 Urine Protein Negative mg/dL (NEG-TRACE) Urine Glucose (UA) Negative mg/dL (NEG) Urine Ketones (Stick) Negative mg/dL (NEG) Urine Blood Negative (NEG) Urine Nitrite Negative (NEG) Urine Bilirubin Negative (NEG) Urine Urobilinogen Dipstick 0.2 mg/dL (0.2 mg/dL) Urine Leukocyte Esterase Negative (NEG) Urine RBC 0 /HPF (0-2) Urine WBC 0 /HPF (0-4) Urine Squamous Epithelial Cells Few /LPF Urine Bacteria 0 /HPF (0-FEW) Urine Mucus Slight /LPF Urine Opiates Screen Neg (NEG) Urine Methadone Screen Neg (NEG) Urine Barbiturates Neg (NEG) Urine Phencyclidine Screen Neg (NEG) Urine Amphetamine/Methamphetamine Neg (NEG) Urine Benzodiazepines Screen Neg (NEG) Urine Cocaine Screen Neg (NEG) Urine Cannabinoids Screen Neg (NEG) Urine Ethyl Alcohol Pos (NEG) Medications Current Medications Albuterol/ Ipratropium (Duoneb) 3 ml STK-MED ONCE .ROUTE ; Start 03/12/19 at 13:53; Stop 03/12/19 at 13:53; Status DC Prednisone (Prednisone) 50 mg 1X ONCE PO Last administered on 03/12/19at 14:46; Start 03/12/19 at 14:15; Stop 03/12/19 at 14:16; Status DC Albuterol Sulfate (Ventolin Neb Soln) 10 mg 1X ONCE CONT NEB Last administered on 03/12/19at 14:08; Start 03/12/19 at 14:15; Stop 03/12/19 at 14:16; Status DC Albuterol Sulfate (Ventolin Neb Soln) 2.5 mg STK-MED ONCE .ROUTE ; Start 03/12/19 at 14:05; Stop 03/12/19 at 14:06; Status DC Albuterol/ Ipratropium (Duoneb) 3 ml 1X ONCE NEB Last administered on 03/12/19at 14:17; Start 03/12/19 at 14:15; Stop 03/12/19 at 14:17; Status DC Sodium Chloride 1,000 ml @ 1,000 mls/hr 1X ONCE IV Last administered on 03/12/19at 15:50; Start 03/12/19 at 15:30; Stop 03/12/19 at 16:29; Status DC Sodium Chloride 1,000 ml @ 1,000 mls/hr 1X ONCE IV Last administered on 03/12/19at 16:32; Start 03/12/19 at 15:30; Stop 03/12/19 at 16:29; Status DC Sodium Chloride 500 ml @ 500 mls/hr 1X ONCE IV Last administered on 03/12/19at 18:03; Start 03/12/19 at 15:30; Stop 03/12/19 at 16:29; Status DC Magnesium Sulfate 100 ml @ 25 mls/hr 1X ONCE IV Last administered on 03/12/19at 16:27; Start 03/12/19 at 15:30; Stop 03/12/19 at 19:29; Status DC Azithromycin 250 ml @ 250 mls/hr 1X ONCE IV Last administered on 03/12/19at 15:50; Start 03/12/19 at 15:30; Stop 03/12/19 at 16:29; Status DC Ceftriaxone Sodium (Rocephin) 1 gm 1X ONCE IVP Last administered on 03/12/19at 15:50; Start 03/12/19 at 15:30; Stop 03/12/19 at 15:32; Status DC Fentanyl Citrate (Fentanyl 2ml Vial) 50 mcg 1X ONCE IV Last administered on 03/12/19at 16:45; Start 03/12/19 at 16:30; Stop 03/12/19 at 16:39; Status DC Ondansetron HCl (Zofran) 4 mg PRN Q8HRS PRN IV NAUSEA/VOMITING; Start 03/12/19 at 17:15; Stop 03/12/19 at 17:14; Status DC Fentanyl Citrate (Fentanyl 2ml Vial) 50 mcg PRN Q1HR PRN IV PAIN; Start 03/12/19 at 17:15; Stop 03/13/19 at 17:14 Acetaminophen (Tylenol) 650 mg PRN Q4HRS PRN PO FEVER; Start 03/12/19 at 17:15; Stop 03/13/19 at 17:14 Albuterol/ Ipratropium (Duoneb) 3 ml RTQID NEB ; Start 03/12/19 at 20:00; Stop 03/12/19 at 17:13; Status DC Labetalol HCl (Normodyne Iv Push) 20 mg PRN Q2HR PRN IVP HYPERTENSION; Start 03/12/19 at 17:15 Albuterol/ Ipratropium (Duoneb) 3 ml RTQID NEB Last administered on 03/13/19at 08:13; Start 03/12/19 at 20:00 Acetaminophen/ Codeine Phosphate (Tylenol #3) 1 tab PRN Q6HRS PRN PO MODERATE PAIN; Start 03/12/19 at 17:15 Ondansetron HCl (Zofran) 4 mg PRN Q6HRS PRN IV NAUSEA/VOMITING; Start 03/12/19 at 17:15 Calcium Carbonate/ Glycine (Tums) 500 mg PRN AFTMEALHC PRN PO INDIGESTION; Start 03/12/19 at 17:15 Zolpidem Tartrate (Ambien) 5 mg PRN QHS PRN PO INSOMNIA, 2ND CHOICE; Start 03/12/19 at 17:15 Temazepam (Restoril) 7.5 mg PRN QHS PRN PO INSOMNIA, 1ST CHOICE; Start 03/12/19 at 17:15 Potassium Chloride (Klor-Con) 40 meq 1X ONCE PO ; Start 03/12/19 at 17:15; Stop 03/12/19 at 17:16; Status DC Albuterol Sulfate (Ventolin Neb Soln) 2.5 mg PRN Q6HRS PRN INH SHORTNESS OF BREATH; Start 03/12/19 at 17:15 Allopurinol (Zyloprim) 100 mg DAILY PO Last administered on 03/13/19at 08:59; Start 03/13/19 at 09:00 Amlodipine Besylate (Norvasc) 10 mg DAILY PO Last administered on 03/13/19at 08:59; Start 03/13/19 at 09:00 Aripiprazole (Abilify) 5 mg DAILY PO Last administered on 03/13/19at 08:59; Start 03/13/19 at 09:00 Atorvastatin Calcium (Lipitor) 40 mg QHS PO ; Start 03/12/19 at 21:00 Colchicine (Colcrys) 0.6 mg DAILY PO Last administered on 03/13/19 08:59; Start 03/13/19 at 09:00 EZETIMIBE (Zetia) 10 mg DAILY PO Last administered on 03/13/19at 08:59; Start 03/13/19 at 09:00 Ferrous Sulfate (Feosol) 325 mg DAILY PO ; Start 03/13/19 at 09:00 Fluticasone Propionate (Flonase) 2 spray DAILY NS ; Start 03/13/19 at 09:00 Hydralazine HCl (Apresoline) 50 mg TID PO Last administered on 03/13/19at 08:59; Start 03/12/19 at 21:00 Acetaminophen/ Hydrocodone Bitart (Lortab 5/325) 1 tab PRN Q6HRS PRN PO MODERATE PAIN (2nd Choice) Last administered on 03/13/19at 04:12; Start 03/12/19 at 17:15 Ondansetron HCl (Zofran Odt) 4 mg PRN Q4HRS PRN PO NAUSEA; Start 03/12/19 at 17:15 Hydroxyzine HCl (Atarax) 25 mg PRN Q6HRS PRN PO ITCHING; Start 03/12/19 at 18:00 Cetirizine HCl (ZyrTEC) 10 mg DAILY PO Last administered on 03/13/19at 08:59; Start 03/13/19 at 09:00 Losartan Potassium (Cozaar) 50 mg DAILY PO Last administered on 03/13/19 08:59; Start 03/13/19 at 09:00 Meloxicam (Mobic) 15 mg DAILY PO Last administered on 03/13/19at 08:59; Start 03/13/19 at 09:00 Metoprolol Succinate (Toprol Xl) 200 mg QHS PO Last administered on 03/12/19at 21:26; Start 03/12/19 at 21:00 Multivitamins (Thera M Plus) 1 tab DAILY PO ; Start 03/13/19 at 09:00 Pantoprazole Sodium (Protonix) 40 mg DAILYAC PO ; Start 03/13/19 at 07:30 Cyclobenzaprine HCl (Flexeril) 10 mg TID PO Last administered on 9/11/19at 08:59; Start 03/12/19 at 21:00 Potassium Chloride (Klor-Con) 20 meq DAILYWBKFT PO ; Start 03/13/19 at 08:00; Stop 03/13/19 at 09:46; Status DC Sumatriptan Succinate (Imitrex) 50 mg PRN DAILY PRN PO MIGRAINE HEADACHE; Star t 03/12/19 at 18:00 Benzonatate (Tessalon Perle) 100 mg [id number] PO Last administered on 03/13/19at 08:59; Start 03/12/19 at 21:00 Methylprednisolone Sodium Succinate (SOLU-Medrol 40MG VIAL) 40 mg Q8HRS IV Last administered on 03/13/19at 06:33; Start 03/12/19 at 22:00 Hydrochlorothiazide (Microzide) 12.5 mg DAILY PO Last administered on 03/13/19at 08:59; Start 03/13/19 at 09:00 Nicotine (Nicoderm Cq 21mg) 1 patch PRN DAILY PRN TD SMOKING CESSATION; Start 03/12/19 at 18:15 Sodium Chloride 1,000 ml @ 100 mls/hr Q10H IV Last administered on 03/13/19at 08:59; Start 03/12/19 at 21:15 Potassium Bicarbonate (Potassium Effervescent Tablet) 20 meq DAILYWBKFT PO ; Start 03/13/19 at 10:00 Budesonide (Pulmicort) 0.5 mg RTBID NEB ; Start 03/13/19 at 20:00 Active Scripts Active Orphenadrine Citrate 100 Mg Tablet.er 1 Tab PO BID Hydrocodone-Apap 5-325 (Hydrocodone Bit/Acetaminophen) 1 Tab Tablet 1 Tab PO PRN Q6HRS PRN Doxycycline Hyclate 100 Mg Tablet 100 Mg PO BID Prednisone (Prednisone) 10 Mg Tablet 10 Mg PO UD Take 5 tablets by mouth daily for 2 days, then take 4 tablets by mouth daily for 2 days, then take 3 tablets by mouth daily for 2 days, then take 2 tablets by mouth daily for 2 days, then take 1 tablets by mouth daily for 2 days, then stop. [guaiFENesin/CODEINE 100mg/10mg] 5 ML Liquid 5 Ml PO PRN Q6HRS PRN Proair Hfa Inhaler (Albuterol Sulfate) 8.5 Gm Hfa.aer.ad 1 Puff INH PRN Q6HRS PRN Omeprazole 20 Mg Tablet.dr 1 Tab PO DAILY Hydralazine Hcl 50 Mg Tablet 50 Mg PO TID 30 Days Ventolin Hfa Inhaler (Albuterol Sulfate) 18 Gm Hfa.aer.ad 2 Puff INH Q4HRS Zetia (Ezetimibe) 10 Mg Tablet 10 Mg PO DAILY 90 Days Allopurinol 100 Mg Tablet 100 Mg PO DAILY 90 Days Atorvastatin Calcium 40 Mg Tablet 40 Mg PO QHS 30 Days Amlodipine Besylate 10 Mg Tablet 10 Mg PO DAILY 30 Days Reported Fluticasone Propionate Nasal [place] (Fluticasone Propionate) 16 Gm [place].susp 2 [place] NS DAILY Loratadine 10 Mg Tablet 1 Tab PO DAILY Aripiprazole 5 Mg Tablet 5 Mg PO DAILY Potassium Chloride 20 Meq Tablet.er 20 Meq PO DAILY Ondansetron Odt (Ondansetron) 4 Mg Tab.rapdis 1 Tab PO PRN Q4HRS PRN Metoprolol Succinate ( Xl ) (Metoprolol Succinate) 200 Mg Tab.er.24h 1 Tab PO HS Losartan-Hctz 50-12.5 Mg Tab (Losartan/Hydrochlorothiazide) 1 Each Tablet 1 Tab PO DAILY Symbicort 160-4.5 Mcg Inhaler (Budesonide/Formoterol Fumarate) 10.2 Gm Hfa.aer.ad 2 Puff IH BID Vistaril (Hydroxyzine Pamoate) 25 Mg Capsule 25 Mg PO PRN PRN Meloxicam 15 Mg Tablet 15 Mg PO DAILY Ferrous Sulfate 325 Mg Tablet 325 Mg PO DAILY Colcrys (Colchicine) 0.6 Mg Tablet 0.6 Mg PO DAILY Imitrex (Sumatriptan Succinate) 50 Mg Tablet 50 Mg PO ONCE PRN Multi-Day Vitamins (Multivitamin) 1 Each Tablet 1 Tab PO DAILY Vitals/I & O Vital Sign - Last 24 Hours 03/12/19 03/12/19 03/12/19 03/12/19 13:43 13:56 14:08 14:14 Temp 98.1 98.1 Pulse 124 115 Resp 20 18 B/P (MAP) 157/89 (111) 145/82 (103) Pulse Ox 93 93 93 90 O2 Delivery Room Air Room Air Room Air Room Air 03/12/19 03/12/19 03/12/19 03/12/19 14:44 15:14 15:41 16:14 Pulse 120 128 126 122 Resp 18 18 18 18 B/P (MAP) 141/79 (99) 192/79 (116) 157/89 (111) 166/83 (110) Pulse Ox 99 100 96 96 O2 Delivery Aerosol Mask Aerosol Mask Room Air Room Air 03/12/19 03/12/19 03/12/19 03/12/19 16:47 17:44 18:14 18:44 Pulse 60 114 110 111 Resp 18 18 B/P (MAP) 163/98 (119) 166/98 (120) 188/101 (130) 176/87 (116) Pulse Ox 96 99 100 O2 Delivery Room Air Room Air Room Air Room Air 03/12/19 03/12/19 03/12/19 03/12/19 19:12 19:14 19:48 19:48 Temp 99.0 99.0 Pulse 115 112 121 Resp 18 B/P (MAP) 184/96 (125) 182/93 (122) 175/96 (122) Pulse Ox 98 99 97 O2 Delivery Room Air Room Air Room Air Room Air 03/12/19 03/12/19 03/12/19 03/12/19 19:54 21:26 21:26 21:26 Pulse 121 B/P (MAP) 175/96 175/96 Pulse Ox 99 O2 Delivery Room Air Room Air 03/12/19 03/12/19 03/13/19 03/13/19 23:25 23:55 03:23 04:12 Temp 98.1 97.7 98.1 97.7 Pulse 104 98 Resp 18 18 B/P (MAP) 151/98 (115) 168/73 (104) Pulse Ox 97 98 O2 Delivery Room Air Room Air Room Air Room Air 03/13/19 03/13/19 03/13/19 03/13/19 06:03 07:00 08:00 08:14 Temp 97.4 97.4 Pulse 95 Resp 18 B/P (MAP) 170/96 (120) Pulse Ox 96 100 O2 Delivery Room Air Room Air Room Air Room Air 03/13/19 03/13/19 03/13/19 08:59 08:59 08:59 Pulse 95 95 95 B/P (MAP) 170/96 170/96 170/96 Intake and Output 03/12/19 03/12/19 03/13/19 15:00 23:00 07:00 Intake Total 2250 ml 100 ml Balance 2250 ml 100 ml SHRAVAN CARMEN MD Mar 13, 2019 10:57
[2019-03-13] MEDS: POTASSIUM BICARB 20 MEQ EFFERVESCENT TABLET. PO SCH (13:12)
[2019-03-13 15:00] VITALS: BP 172/95
[2019-03-13 19:28] VITALS: BP 172/101
[2019-03-13] MEDS: METOPROLOL SUCC 24HR ER 100 MG TAB.ER.24H. PO SCH (20:28)
[2019-03-13] MEDS: ATORVASTATIN CALCIUM 40 MG TABLET. PO SCH (20:29)
[2019-03-13] MEDS: BUDESONIDE 0.5 MG/2 ML NEBU. NEB SCH (21:01)
[2019-03-13] MEDS: hydrALAZINE 25 MG TABLET PO SCH (22:14)
[2019-03-13 23:54] VITALS: BP 156/99
[2019-03-14] MEDS: IV NORMAL SALINE 1000ML BAG 1,000 ML IV SCH (02:31)
[2019-03-14 03:25] VITALS: BP 162/93
[2019-03-14] MEDS: methylPREDNISolone SOD SUCC PF 40 MG/ML VIAL. IV SCH (06:00)
[2019-03-14 07:15] VITALS: BP 183/102
[2019-03-14] MEDS: IPRATRPIUM/ALBUTEROL 0.5/2.5MG 3 ML NEBU. NEB SCH (07:33)
[2019-03-14] MEDS: BUDESONIDE 0.5 MG/2 ML NEBU. NEB SCH (07:33)
[2019-03-14] MEDS: hydroCHLOROthiazide 12.5 MG CAPSULE PO SCH (08:29)
[2019-03-14] MEDS: PANTOPRAZOLE 40 MG TABLET.DR. PO SCH (08:29)
[2019-03-14] MEDS: hydrALAZINE 25 MG TABLET PO SCH (08:30)
[2019-03-14] MEDS: amLODIPine BESYLATE 10 MG TABLET PO SCH (08:30)
[2019-03-14] MEDS: MELOXICAM 7.5 MG TABLET PO SCH (08:30)
[2019-03-14] MEDS: LOSARTAN POTASSIUM 50 MG TABLET. PO SCH (08:31)
[2019-03-14] MEDS: POTASSIUM BICARB 20 MEQ EFFERVESCENT TABLET. PO SCH (08:34)
[2019-03-14] MEDS: ALLOPURINOL 100 MG TABLET. PO SCH (08:41)
[2019-03-14] MEDS: COLCHICINE 0.6 MG TABLET PO SCH (08:41)
--- NOTE | 2019-03-14 08:47 | NUR ---
SW following pt for dc planning. Chart reviewed, pt lives at home and Pulmonary following. Will continue to follow pending dc needs.
[2019-03-14] MEDS: EZETIMIBE 10 MG TABLET. PO SCH (09:00)
[2019-03-14] MEDS: FERROUS SULFATE 325 MG TABLET. PO SCH (09:00)
[2019-03-14] MEDS: MULTIVITAMIN with MINERAL TABLET. PO SCH (09:00)
[2019-03-14] MEDS: ARIPiprazole 5 MG TABLET PO SCH (09:00)
[2019-03-14] MEDS: FLUTICASONE 50MCG/NASAL SPRAY 16GM BOTTLE. NS SCH (09:00)
[2019-03-14] MEDS: BENZONATATE 100 MG CAPSULE. PO SCH (09:00)
[2019-03-14] MEDS: CYCLOBENZAPRINE 10 MG TABLET. PO SCH (09:00)
[2019-03-14] MEDS: CETIRIZINE HCL 10 MG TABLET. PO SCH (09:00)
[2019-03-14 10:58] VITALS: BP 170/102
--- NOTE | 2019-03-14 11:23 | PDOC ---
PROGRESS NOTES History of Present Illness History of Present Illness VTE Prophylaxis Ordered VTE Prophylaxis Devices: Yes VTE Pharmacological Prophylaxi: Yes discharge dx 1. Acute hypoxic respi failure, COPD exac, no consolidation on CXR 2. Tobaccoism 3. HTN, accelerated, REMAINS UNCONTROLLED 4. Hypokalemia 3,.3 5. Hypomagnesemia 1,7 6. Elevated lactate PLAN: 2MN tele floor that allows IVprn labetolol pushes I have reconciled home meds ADA diet, SSI Solu IV Pulmo consult Cough med Solomon patch SMoking cessation EDUCATION PROVIDED O2 support PRN REPLACE K FULL CODE INC HYDRALAZINE TO 75 MG PO TID change to PO steroids her wheezing appears to have resolved; discharged today Smoking cessation counseling provided. 36 MIN PT EXAM, CHART REVIEW, > 50% OF TIME SPENT WITH EXAM, CHART REVIEW, PT CARE COORDINATION Vitals Vitals Vital Signs Date Time Temp Pulse Resp B/P (MAP) Pulse Ox O2 Delivery O2 Flow Rate FiO2 03/14/19 10:58 97.6 78 18 170/102 (124) 97 Room Air 97.6 Physical Exam General: Alert, Oriented X3, Cooperative, mild distress Heart: Regular rate, Normal S1 Lungs: Wheezing Abdomen: Normal bowel sounds, Soft, No tenderness, No hepatosplenomegaly, No masses Extremities: No clubbing, No cyanosis, No edema, Normal pulses, No tenderness/swelling Skin: No rashes, No breakdown, No significant lesion Assessment and Plan Assessmemt and Plan Problems Medical Problems: (1) Accelerated hypertension Status: Acute (2) Acute respiratory failure with hypoxia Status: Acute (3) COPD exacerbation Status: Acute (4) Hypokalemia Status: Acute (5) Hypomagnesemia Status: Acute Comment Review of Relevant I have reviewed the following items josep (where applicable) has been applied. Labs Laboratory Tests Test 03/12/19 14:34 03/12/19 19:15 03/12/19 21:43 03/13/19 03:35 White Blood Count 9.9 x10^3/uL (4.0-11.0) Red Blood Count 4.25 x10^6/uL (3.50-5.40) Hemoglobin 12.9 g/dL (12.0-15.5) Hematocrit 38.0 % (36.0-47.0) Mean Corpuscular Volume 89 fL (79-100) Mean Corpuscular Hemoglobin 30 pg (25-35) Mean Corpuscular Hemoglobin Concent 34 g/dL (31-37) Red Cell Distribution Width 13.2 % (11.5-14.5) Platelet Count 291 x10^3/uL (140-400) Neutrophils (%) (Auto) 59 % (31-73) Lymphocytes (%) (Auto) 31 % (24-48) Monocytes (%) (Auto) 8 % (0-9) Eosinophils (%) (Auto) 2 % (0-3) Basophils (%) (Auto) 1 % (0-3) Neutrophils # (Auto) 5.8 x10^3/uL (1.8-7.7) Lymphocytes # (Auto) 3.0 x10^3/uL (1.0-4.8) Monocytes # (Auto) 0.8 x10^3/uL (0.0-1.1) Eosinophils # (Auto) 0.2 x10^3/uL (0.0-0.7) Basophils # (Auto) 0.1 x10^3/uL (0.0-0.2) Sodium Level 143 mmol/L (136-145) 138 mmol/L (136-145) Potassium Level 3.3 mmol/L (3.5-5.1) 4.3 mmol/L (3.5-5.1) Chloride Level 104 mmol/L (98-107) 105 mmol/L (98-107) Carbon Dioxide Level 19 mmol/L (21-32) 21 mmol/L (21-32) Anion Gap 20 (6-14) 12 (6-14) Blood Urea Nitrogen 3 mg/dL (7-20) 8 mg/dL (7-20) Creatinine 0.6 mg/dL (0.6-1.0) 0.9 mg/dL (0.6-1.0) Estimated GFR (Cockcroft-Gault) 129.7 81.2 BUN/Creatinine Ratio 5 (6-20) Glucose Level 142 mg/dL (70-99) 222 mg/dL (70-99) Lactic Acid Level 4.7 mmol/L (0.4-2.0) 4.2 mmol/L (0.4-2.0) 4.4 mmol/L (0.4-2.0) Calcium Level 8.8 mg/dL (8.5-10.1) 7.9 mg/dL (8.5-10.1) Magnesium Level 1.6 mg/dL (1.8-2.4) 2.1 mg/dL (1.8-2.4) Total Bilirubin 0.2 mg/dL (0.2-1.0) Aspartate Amino Transf (AST/SGOT) 48 U/L (15-37) Alanine Aminotransferase (ALT/SGPT) 59 U/L (14-59) Alkaline Phosphatase 128 U/L (46-116) Troponin I Quantitative < 0.017 ng/mL (0.000-0.055) < 0.017 ng/mL (0.000-0.055) TH-Cfa-T-Type Natriuretic Peptide 44 pg/mL (0-124) Total Protein 7.2 g/dL (6.4-8.2) Albumin 2.7 g/dL (3.4-5.0) Albumin/Globulin Ratio 0.6 (1.0-1.7) Glucose (Fingerstick) 199 mg/dL (70-99) Test 03/13/19 04:10 Urine Collection Type Unknown Urine Color Yellow Urine Clarity Clear Urine pH 5.5 Urine Specific [place] 1.010 Urine Protein Negative mg/dL (NEG-TRACE) Urine Glucose (UA) Negative mg/dL (NEG) Urine Ketones (Stick) Negative mg/dL (NEG) Urine Blood Negative (NEG) Urine Nitrite Negative (NEG) Urine Bilirubin Negative (NEG) Urine Urobilinogen Dipstick 0.2 mg/dL (0.2 mg/dL) Urine Leukocyte Esterase Negative (NEG) Urine RBC 0 /HPF (0-2) Urine WBC 0 /HPF (0-4) Urine Squamous Epithelial Cells Few /LPF Urine Bacteria 0 /HPF (0-FEW) Urine Mucus Slight /LPF Urine Opiates Screen Neg (NEG) Urine Methadone Screen Neg (NEG) Urine Barbiturates Neg (NEG) Urine Phencyclidine Screen Neg (NEG) Urine Amphetamine/Methamphetamine Neg (NEG) Urine Benzodiazepines Screen Neg (NEG) Urine Cocaine Screen Neg (NEG) Urine Cannabinoids Screen Neg (NEG) Urine Ethyl Alcohol Pos (NEG) Microbiology 03/12/19 Blood Culture - Preliminary, Resulted NO GROWTH AFTER 1 DAY Medications Current Medications Albuterol/ Ipratropium (Duoneb) 3 ml STK-MED ONCE .ROUTE ; Start 03/12/19 at 13:53; Stop 03/12/19 at 13:53; Status DC Prednisone (Prednisone) 50 mg 1X ONCE PO Last administered on 03/12/19at 14:46; Start 03/12/19 at 14:15; Stop 03/12/19 at 14:16; Status DC Albuterol Sulfate (Ventolin Neb Soln) 10 mg 1X ONCE CONT NEB Last administered on 03/12/19at 14:08; Start 03/12/19 at 14:15; Stop 03/12/19 at 14:16; Status DC Albuterol Sulfate (Ventolin Neb Soln) 2.5 mg STK-MED ONCE .ROUTE ; Start 03/12/19 at 14:05; Stop 03/12/19 at 14:06; Status DC Albuterol/ Ipratropium (Duoneb) 3 ml 1X ONCE NEB Last administered on 03/12/19at 14:17; Start 03/12/19 at 14:15; Stop 03/12/19 at 14:17; Status DC Sodium Chloride 1,000 ml @ 1,000 mls/hr 1X ONCE IV Last administered on 03/12/19at 15:50; Start 03/12/19 at 15:30; Stop 03/12/19 at 16:29; Status DC Sodium Chloride 1,000 ml @ 1,000 mls/hr 1X ONCE IV Last administered on 03/12/19at 16:32; Start 03/12/19 at 15:30; Stop 03/12/19 at 16:29; Status DC Sodium Chloride 500 ml @ 500 mls/hr 1X ONCE IV Last administered on 03/12/19at 18:03; Start 03/12/19 at 15:30; Stop 03/12/19 at 16:29; Status DC Magnesium Sulfate 100 ml @ 25 mls/hr 1X ONCE IV Last administered on 03/12/19at 16:27; Start 03/12/19 at 15:30; Stop 03/12/19 at 19:29; Status DC Azithromycin 250 ml @ 250 mls/hr 1X ONCE IV Last administered on 03/12/19at 15:50; Start 03/12/19 at 15:30; Stop 03/12/19 at 16:29; Status DC Ceftriaxone Sodium (Rocephin) 1 gm 1X ONCE IVP Last administered on 03/12/19at 15:50; Start 03/12/19 at 15:30; Stop 03/12/19 at 15:32; Status DC Fentanyl Citrate (Fentanyl 2ml Vial) 50 mcg 1X ONCE IV Last administered on 03/12/19at 16:45; Start 03/12/19 at 16:30; Stop 03/12/19 at 16:39; Status DC Ondansetron HCl (Zofran) 4 mg PRN Q8HRS PRN IV NAUSEA/VOMITING; Start 03/12/19 at 17:15; Stop 03/12/19 at 17:14; Status DC Fentanyl Citrate (Fentanyl 2ml Vial) 50 mcg PRN Q1HR PRN IV PAIN; Start 03/12/19 at 17:15; Stop 03/13/19 at 17:14; Status DC Acetaminophen (Tylenol) 650 mg PRN Q4HRS PRN PO FEVER; Start 03/12/19 at 17:15; Stop 03/13/19 at 17:14; Status DC Albuterol/ Ipratropium (Duoneb) 3 ml RTQID NEB ; Start 03/12/19 at 20:00; Stop 03/12/19 at 17:13; Status DC Labetalol HCl (Normodyne Iv Push) 20 mg PRN Q2HR PRN IVP HYPERTENSION; Start 03/12/19 at 17:15 Albuterol/ Ipratropium (Duoneb) 3 ml RTQID NEB Last administered on 03/14/19at 07:33; Start 03/12/19 at 20:00 Acetaminophen/ Codeine Phosphate (Tylenol #3) 1 tab PRN Q6HRS PRN PO MODERATE PAIN; Start 03/12/19 at 17:15 Ondansetron HCl (Zofran) 4 mg PRN Q6HRS PRN IV NAUSEA/VOMITING; Start 03/12/19 at 17:15 Calcium Carbonate/ Glycine (Tums) 500 mg PRN AFTMEALHC PRN PO INDIGESTION Last administered on 03/13/19at 18:16; Start 03/12/19 at 17:15 Zolpidem Tartrate (Ambien) 5 mg PRN QHS PRN PO INSOMNIA, 2ND CHOICE; Start 03/12/19 at 17:15 Temazepam (Restoril) 7.5 mg PRN QHS PRN PO INSOMNIA, 1ST CHOICE; Start 03/12/19 at 17:15 Potassium Chloride (Klor-Con) 40 meq 1X ONCE PO ; Start 03/12/19 at 17:15; Sto p 03/12/19 at 17:16; Status DC Albuterol Sulfate (Ventolin Neb Soln) 2.5 mg PRN Q6HRS PRN INH SHORTNESS OF BREATH Last administered on 03/14/19 02:45; Start 03/12/19 at 17:15 Allopurinol (Zyloprim) 100 mg DAILY PO Last administered on 03/14/19 08:41; Start 03/13/19 at 09:00 Amlodipine Besylate (Norvasc) 10 mg DAILY PO Last administered on 03/14/19 08:34; Start 03/13/19 at 09:00 Aripiprazole (Abilify) 5 mg DAILY PO Last administered on 03/13/19 08:59; Start 03/13/19 at 09:00 Atorvastatin Calcium (Lipitor) 40 mg QHS PO Last administered on 03/13/19 20:29; Start 03/12/19 at 21:00 Colchicine (Colcrys) 0.6 mg DAILY PO Last administered on 03/14/19 08:41; Start 03/13/19 at 09:00 EZETIMIBE (Zetia) 10 mg DAILY PO Last administered on 03/13/19at 08:59; Start 03/13/19 at 09:00 Ferrous Sulfate (Feosol) 325 mg DAILY PO ; Start 03/13/19 at 09:00 Fluticasone Propionate (Flonase) 2 spray DAILY NS ; Start 03/13/19 at 09:00 Hydralazine HCl (Apresoline) 50 mg TID PO Last administered on 03/13/19at 13:53; Start 03/12/19 at 21:00; Stop 03/13/19 at 16:19; Status DC Acetaminophen/ Hydrocodone Bitart (Lortab 5/325) 1 tab PRN Q6HRS PRN PO MODER ATE PAIN (2nd Choice) Last administered on 03/13/19 20:29; Start 03/12/19 at 17:15 Ondansetron HCl (Zofran Odt) 4 mg PRN Q4HRS PRN PO NAUSEA; Start 03/12/19 at 17:15 Hydroxyzine HCl (Atarax) 25 mg PRN Q6HRS PRN PO ITCHING; Start 03/12/19 at 18:00 Cetirizine HCl (ZyrTEC) 10 mg DAILY PO Last administered on 03/13/19 08:59; Start 03/13/19 at 09:00 Losartan Potassium (Cozaar) 50 mg DAILY PO Last administered on 03/14/19 08:34; Start 03/13/19 at 09:00 Meloxicam (Mobic) 15 mg DAILY PO Last administered on 03/14/19 08:34; Start 03/13/19 at 09:00 Metoprolol Succinate (Toprol Xl) 200 mg QHS PO Last administered on 03/13/19 20:29; Start 03/12/19 at 21:00 Multivitamins (Thera M Plus) 1 tab DAILY PO ; Start 03/13/19 at 09:00 Pantoprazole Sodium (Protonix) 40 mg DAILYAC PO Last administered on 03/14/19 08:34; Start 03/13/19 at 07:30 Cyclobenzaprine HCl (Flexeril) 10 mg TID PO Last administered on 03/13/19 20:29; Start 03/12/19 at 21:00 Potassium Chloride (Klor-Con) 20 meq DAILYWBKFT PO ; Start 03/13/19 at 08:00; Stop 03/13/19 at 09:46; Status DC Sumatriptan Succinate (Imitrex) 50 mg PRN DAILY PRN PO MIGRAINE HEADACHE; Start 03/12/19 at 18:00 Benzonatate (Tessalon Perle) 100 mg [id number] PO Last administered on 03/13/19 20:29; Start 03/12/19 at 21:00 Methylprednisolone Sodium Succinate (SOLU-Medrol 40MG VIAL) 40 mg Q8HRS IV Last administered on 03/14/19 06:00; Start 03/12/19 at 22:00 Hydrochlorothiazide (Microzide) 12.5 mg DAILY PO Last administered on 03/14/19 08:34; Start 03/13/19 at 09:00 Nicotine (Nicoderm Cq 21mg) 1 patch PRN DAILY PRN TD SMOKING CESSATION; Start 03/12/19 at 18:15 Sodium Chloride 1,000 ml @ 100 mls/hr Q10H IV Last administered on 03/14/19 02:31; Start 03/12/19 at 21:15 Potassium Bicarbonate (Potassium Effervescent Tablet) 20 meq DAILYWBKFT PO Last administered on 03/14/19 08:34; Start 03/13/19 at 10:00 Budesonide (Pulmicort) 0.5 mg RTBID NEB Last administered on 03/14/19 07:33; Start 03/13/19 at 20:00 Hydralazine HCl (Apresoline) 75 mg TID PO Last administered on 03/14/19 08:34; Start 03/13/19 at 21:00 Active Scripts Active Orphenadrine Citrate 100 Mg Tablet.er 1 Tab PO BID Hydrocodone-Apap 5-325 (Hydrocodone Bit/Acetaminophen) 1 Tab Tablet 1 Tab PO PRN Q6HRS PRN Doxycycline Hyclate 100 Mg Tablet 100 Mg PO BID Prednisone (Prednisone) 10 Mg Tablet 10 Mg PO UD Take 5 tablets by mouth daily for 2 days, then take 4 tablets by mouth daily for 2 days, then take 3 tablets by mouth daily for 2 days, then take 2 tablets by mouth daily for 2 days, then take 1 tablets by mouth daily for 2 days, then stop. [guaiFENesin/CODEINE 100mg/10mg] 5 ML Liquid 5 Ml PO PRN Q6HRS PRN Proair Hfa Inhaler (Albuterol Sulfate) 8.5 Gm Hfa.aer.ad 1 Puff INH PRN Q6HRS PRN Omeprazole 20 Mg Tablet.dr 1 Tab PO DAILY Hydralazine Hcl 50 Mg Tablet 50 Mg PO TID 30 Days Ventolin Hfa Inhaler (Albuterol Sulfate) 18 Gm Hfa.aer.ad 2 Puff INH Q4HRS Zetia (Ezetimibe) 10 Mg Tablet 10 Mg PO DAILY 90 Days Allopurinol 100 Mg Tablet 100 Mg PO DAILY 90 Days Atorvastatin Calcium 40 Mg Tablet 40 Mg PO QHS 30 Days Amlodipine Besylate 10 Mg Tablet 10 Mg PO DAILY 30 Days Reported Fluticasone Propionate Nasal [place] (Fluticasone Propionate) 16 Gm [place].susp 2 [place] NS DAILY Loratadine 10 Mg Tablet 1 Tab PO DAILY Aripiprazole 5 Mg Tablet 5 Mg PO DAILY Potassium Chloride 20 Meq Tablet.er 20 Meq PO DAILY Ondansetron Odt (Ondansetron) 4 Mg Tab.rapdis 1 Tab PO PRN Q4HRS PRN Metoprolol Succinate ( Xl ) (Metoprolol Succinate) 200 Mg Tab.er.24h 1 Tab PO HS Losartan-Hctz 50-12.5 Mg Tab (Losartan/Hydrochlorothiazide) 1 Each Tablet 1 Tab PO DAILY Symbicort 160-4.5 Mcg Inhaler (Budesonide/Formoterol Fumarate) 10.2 Gm Hfa.aer.ad 2 Puff IH BID Vistaril (Hydroxyzine Pamoate) 25 Mg Capsule 25 Mg PO PRN PRN Meloxicam 15 Mg Tablet 15 Mg PO DAILY Ferrous Sulfate 325 Mg Tablet 325 Mg PO DAILY Colcrys (Colchicine) 0.6 Mg Tablet 0.6 Mg PO DAILY Imitrex (Sumatriptan Succinate) 50 Mg Tablet 50 Mg PO ONCE PRN Multi-Day Vitamins (Multivitamin) 1 Each Tablet 1 Tab PO DAILY Vitals/I & O Vital Sign - Last 24 Hours 03/13/19 03/13/19 03/13/19 03/13/19 12:38 13:53 13:53 15:00 Temp 98.2 98.2 Pulse 84 86 Resp 18 18 B/P (MAP) 177/102 172/95 (120) Pulse Ox 97 O2 Delivery Room Air Room Air Room Air 03/13/19 03/13/19 03/13/19 03/13/19 16:02 16:56 19:28 20:00 Temp 98.2 98.2 Pulse 88 Resp 16 18 B/P (MAP) 172/101 (124) Pulse Ox 94 O2 Delivery Room Air Room Air Room Air Room Air 03/13/19 03/13/19 03/13/19 03/13/19 20:29 20:29 21:02 21:03 B/P (MAP) 172/95 Pulse Ox 98 98 O2 Delivery Room Air Room Air Room Air 03/13/19 03/13/19 03/13/19 03/14/19 22:14 22:17 23:54 02:47 Temp 97.4 97.4 Pulse 93 Resp 16 B/P (MAP) 172/95 156/99 (118) Pulse Ox 96 O2 Delivery Room Air Room Air Room Air 03/14/19 03/14/19 03/14/19 03/14/19 03:25 07:15 07:33 08:00 Temp 98.4 97.9 98.4 97.9 Pulse 88 87 Resp 16 16 B/P (MAP) 162/93 (116) 183/102 (129) Pulse Ox 92 96 99 O2 Delivery Room Air Room Air Room Air Room Air 03/14/19 03/14/19 03/14/19 03/14/19 08:34 08:34 08:34 10:58 Temp 97.6 97.6 Pulse 87 87 87 78 Resp 18 B/P (MAP) 183/102 183/102 183/102 170/102 (124) Pulse Ox 97 O2 Delivery Room Air Intake and Output 03/13/19 03/13/19 03/14/19 14:59 22:59 06:59 Intake Total 320 ml 320 ml 200 ml Balance 320 ml 320 ml 200 ml SHRAVAN CARMEN MD Mar 14, 2019 11:23
--- NOTE | 2019-03-14 13:05 | PDOC ---
PULMONARY PROGRESS NOTES Subjective no soa Vitals Vital Signs Date Time Temp Pulse Resp B/P (MAP) Pulse Ox O2 Delivery O2 Flow Rate FiO2 03/14/19 10:58 97.6 78 18 170/102 (124) 97 Room Air 97.6 General: Alert, Oriented X4, No acute distress Lungs: Clear Cardiovascular: S1, S2 Abdomen: Soft, Non-tender Neuro Exam: Alert Extremities: No Edema Skin: Warm Labs Laboratory Tests Test 03/12/19 14:34 03/12/19 19:15 03/12/19 21:43 03/13/19 03:35 White Blood Count 9.9 x10^3/uL (4.0-11.0) Red Blood Count 4.25 x10^6/uL (3.50-5.40) Hemoglobin 12.9 g/dL (12.0-15.5) Hematocrit 38.0 % (36.0-47.0) Mean Corpuscular Volume 89 fL (79-100) Mean Corpuscular Hemoglobin 30 pg (25-35) Mean Corpuscular Hemoglobin Concent 34 g/dL (31-37) Red Cell Distribution Width 13.2 % (11.5-14.5) Platelet Count 291 x10^3/uL (140-400) Neutrophils (%) (Auto) 59 % (31-73) Lymphocytes (%) (Auto) 31 % (24-48) Monocytes (%) (Auto) 8 % (0-9) Eosinophils (%) (Auto) 2 % (0-3) Basophils (%) (Auto) 1 % (0-3) Neutrophils # (Auto) 5.8 x10^3/uL (1.8-7.7) Lymphocytes # (Auto) 3.0 x10^3/uL (1.0-4.8) Monocytes # (Auto) 0.8 x10^3/uL (0.0-1.1) Eosinophils # (Auto) 0.2 x10^3/uL (0.0-0.7) Basophils # (Auto) 0.1 x10^3/uL (0.0-0.2) Sodium Level 143 mmol/L (136-145) 138 mmol/L (136-145) Potassium Level 3.3 mmol/L (3.5-5.1) 4.3 mmol/L (3.5-5.1) Chloride Level 104 mmol/L (98-107) 105 mmol/L (98-107) Carbon Dioxide Level 19 mmol/L (21-32) 21 mmol/L (21-32) Anion Gap 20 (6-14) 12 (6-14) Blood Urea Nitrogen 3 mg/dL (7-20) 8 mg/dL (7-20) Creatinine 0.6 mg/dL (0.6-1.0) 0.9 mg/dL (0.6-1.0) Estimated GFR (Cockcroft-Gault) 129.7 81.2 BUN/Creatinine Ratio 5 (6-20) Glucose Level 142 mg/dL (70-99) 222 mg/dL (70-99) Lactic Acid Level 4.7 mmol/L (0.4-2.0) 4.2 mmol/L (0.4-2.0) 4.4 mmol/L (0.4-2.0) Calcium Level 8.8 mg/dL (8.5-10.1) 7.9 mg/dL (8.5-10.1) Magnesium Level 1.6 mg/dL (1.8-2.4) 2.1 mg/dL (1.8-2.4) Total Bilirubin 0.2 mg/dL (0.2-1.0) Aspartate Amino Transf (AST/SGOT) 48 U/L (15-37) Alanine Aminotransferase (ALT/SGPT) 59 U/L (14-59) Alkaline Phosphatase 128 U/L (46-116) Troponin I Quantitative < 0.017 ng/mL (0.000-0.055) < 0.017 ng/mL (0.000-0.055) ZD-Szc-[id number]-Type Natriuretic Peptide 44 pg/mL (0-124) Total Protein 7.2 g/dL (6.4-8.2) Albumin 2.7 g/dL (3.4-5.0) Albumin/Globulin Ratio 0.6 (1.0-1.7) Glucose (Fingerstick) 199 mg/dL (70-99) Test 03/13/19 04:10 Urine Collection Type Unknown Urine Color Yellow Urine Clarity Clear Urine pH 5.5 Urine Specific [place] 1.010 Urine Protein Negative mg/dL (NEG-TRACE) Urine Glucose (UA) Negative mg/dL (NEG) Urine Ketones (Stick) Negative mg/dL (NEG) Urine Blood Negative (NEG) Urine Nitrite Negative (NEG) Urine Bilirubin Negative (NEG) Urine Urobilinogen Dipstick 0.2 mg/dL (0.2 mg/dL) Urine Leukocyte Esterase Negative (NEG) Urine RBC 0 /HPF (0-2) Urine WBC 0 /HPF (0-4) Urine Squamous Epithelial Cells Few /LPF Urine Bacteria 0 /HPF (0-FEW) Urine Mucus Slight /LPF Urine Opiates Screen Neg (NEG) Urine Methadone Screen Neg (NEG) Urine Barbiturates Neg (NEG) Urine Phencyclidine Screen Neg (NEG) Urine Amphetamine/Methamphetamine Neg (NEG) Urine Benzodiazepines Screen Neg (NEG) Urine Cocaine Screen Neg (NEG) Urine Cannabinoids Screen Neg (NEG) Urine Ethyl Alcohol Pos (NEG) Medications Active Scripts Medications Dose Route/Sig Max Daily Dose Days Date Category Dose Instructions Orphenadrine Citrate 100 Mg Tablet.er 1 Tab PO BID 03/07/19 Rx Hydrocodone-Apap 5-325 (Hydrocodone Bit/Acetaminophen) 1 Tab Tablet 1 Tab PO PRN Q6HRS PRN 03/07/19 Rx Doxycycline Hyclate 100 Mg Tablet 100 Mg PO BID 02/25/19 Rx Prednisone (Prednisone) 10 Mg Tablet 10 Mg PO UD 02/25/19 Rx Take 5 tablets by mouth daily for 2 days, then take 4 tablets by mouth daily for 2 days, then take 3 tablets by mouth daily for 2 days, then take 2 tablets by mouth daily for 2 days, then take 1 tablets by mouth daily for 2 days, then stop. [guaiFENesin/CODEINE 100mg/10mg] 5 ML Liquid 5 Ml PO PRN Q6HRS PRN 02/25/19 Rx Proair Hfa Inhaler (Albuterol Sulfate) 8.5 Gm Hfa.aer.ad 1 Puff INH PRN Q6HRS PRN 02/12/19 Rx Omeprazole 20 Mg Tablet.dr 1 Tab PO DAILY 12/09/18 Rx Hydralazine Hcl 50 Mg Tablet 50 Mg PO TID 30 11/16/18 Rx Fluticasone Propionate Nasal [place] (Fluticasone Propionate) 16 Gm [place].susp 2 [place] NS DAILY 11/13/18 Reported Loratadine 10 Mg Tablet 1 Tab PO DAILY 11/13/18 Reported Aripiprazole 5 Mg Tablet 5 Mg PO DAILY 11/04/18 Reported Potassium Chloride 20 Meq Tablet.er 20 Meq PO DAILY 11/04/18 Reported Ondansetron Odt (Ondansetron) 4 Mg Tab.rapdis 1 Tab PO PRN Q4HRS PRN 11/04/18 Reported Metoprolol Succinate ( Xl ) (Metoprolol Succinate) 200 Mg Tab.er.24h 1 Tab PO HS 11/04/18 Reported Losartan-Hctz 50-12.5 Mg Tab (Losartan/Hydrochlorothiazide) 1 Each Tablet 1 Tab PO DAILY 11/04/18 Reported Symbicort 160-4.5 Mcg Inhaler (Budesonide/Formoterol Fumarate) 10.2 Gm Hfa.aer.ad 2 Puff IH BID 10/13/18 Reported Vistaril (Hydroxyzine Pamoate) 25 Mg Capsule 25 Mg PO PRN PRN 10/13/18 Reported Meloxicam 15 Mg Tablet 15 Mg PO DAILY 10/13/18 Reported Ferrous Sulfate 325 Mg Tablet 325 Mg PO DAILY 10/13/18 Reported Colcrys (Colchicine) 0.6 Mg Tablet 0.6 Mg PO DAILY 10/13/18 Reported Imitrex (Sumatriptan Succinate) 50 Mg Tablet 50 Mg PO ONCE PRN 10/13/18 Reported Ventolin Hfa Inhaler (Albuterol Sulfate) 18 Gm Hfa.aer.ad 2 Puff INH Q4HRS 10/02/18 Rx Zetia (Ezetimibe) 10 Mg Tablet 10 Mg PO DAILY 90 06/16/18 Rx Allopurinol 100 Mg Tablet 100 Mg PO DAILY 90 06/16/18 Rx Atorvastatin Calcium 40 Mg Tablet 40 Mg PO QHS 30 06/14/17 Rx Amlodipine Besylate 10 Mg Tablet 10 Mg PO DAILY 30 01/11/17 Rx Multi-Day Vitamins (Multivitamin) 1 Each Tablet 1 Tab PO DAILY 04/14/16 Reported Impression . 1. Acute exacerbation of chronic obstructive pulmonary disease in a patient who has chronic obstructive pulmonary disease overlapped with reactive airway disease, but continues to smoke cigarettes and that has been her ongoing triggers. 2. Probably acute viral bronchitis. No definite consolidation seen on the chest x-ray. Plan . 1. Continue with present DuoNebs. 2. Pulmicort. 3. change to PO steroids 4. At present, her wheezing appears to have resolved; 5. could be discharged today 6. Smoking cessation counseling again provided. MALIK HAGER MD Mar 14, 2019 13:05
--- NOTE | 2019-03-14 13:50 | PDOC3 ---
Discharge Summary Date of Admission: Mar 12, 2019 Date of Discharge: Mar 14, 2019 Follow-Up: 3-5 days Admitting Diagnosis comment: discharge dx 1. Acute hypoxic respi failure, COPD exac, no consolidation on CXR 2. Tobaccoism 3. HTN, accelerated, REMAINS UNCONTROLLED 4. Hypokalemia 3,.3 5. Hypomagnesemia 1,7 6. Elevated lactate PLAN: 2MN tele floor that allows IVprn labetolol pushes I have reconciled home meds ADA diet, SSI Solu IV Pulmo consult Cough med Solomon patch SMoking cessation EDUCATION PROVIDED O2 support PRN REPLACE K FULL CODE INC HYDRALAZINE TO 75 MG PO TID change to PO steroids her wheezing appears to have resolved; discharged today Smoking cessation counseling provided. 35 MIN PT EXAM, CHART REVIEW d/c planning , > 50% OF TIME SPENT WITH EXAM, CHART REVIEW, PT CARE COORDINATION Vitals Vitals Vital Signs Date Time Temp Pulse Resp B/P (MAP) Pulse Ox O2 Delivery O2 Flow Rate FiO2 03/14/19 10:58 97.6 78 18 170/102 (124) 97 Room Air 97.6 Physical Exam General: Alert, Oriented X3, Cooperative, no distress Heart: Regular rate, Normal S1 Lungs: Wheezing resolved Abdomen: Normal bowel sounds, Soft, No tenderness, No hepatosplenomegaly, No masses Extremities: No clubbing, No cyanosis, No edema, Normal pulses, No tenderness/swelling Skin: No rashes, No breakdown, No significant lesion FINAL DIAGNOSIS Problems Medical Problems: (1) Accelerated hypertension Status: Acute (2) Acute respiratory failure with hypoxia Status: Acute (3) COPD exacerbation Status: Acute (4) Hypokalemia Status: Acute (5) Hypomagnesemia Status: Acute Brief Hospital Course Ms. García is a 48 old [sex] who presented with [ ] CONDITION AT DISCHARGE: Improved Discharge Medications Current Medications Albuterol/ Ipratropium (Duoneb) 3 ml STK-MED ONCE .ROUTE ; Start 03/12/19 at 13:53; Stop 03/12/19 at 13:53; Status DC Prednisone (Prednisone) 50 mg 1X ONCE PO Last administered on 03/12/19at 14:46; Start 03/12/19 at 14:15; Stop 03/12/19 at 14:16; Status DC Albuterol Sulfate (Ventolin Neb Soln) 10 mg 1X ONCE CONT NEB Last administered on 03/12/19at 14:08; Start 03/12/19 at 14:15; Stop 03/12/19 at 14:16; Status DC Albuterol Sulfate (Ventolin Neb Soln) 2.5 mg STK-MED ONCE .ROUTE ; Start 03/12/19 at 14:05; Stop 03/12/19 at 14:06; Status DC Albuterol/ Ipratropium (Duoneb) 3 ml 1X ONCE NEB Last administered on 03/12/19at 14:17; Start 03/12/19 at 14:15; Stop 03/12/19 at 14:17; Status DC Sodium Chloride 1,000 ml @ 1,000 mls/hr 1X ONCE IV Last administered on 03/12/19at 15:50; Start 03/12/19 at 15:30; Stop 03/12/19 at 16:29; Status DC Sodium Chloride 1,000 ml @ 1,000 mls/hr 1X ONCE IV Last administered on 03/12/19at 16:32; Start 03/12/19 at 15:30; Stop 03/12/19 at 16:29; Status DC Sodium Chloride 500 ml @ 500 mls/hr 1X ONCE IV Last administered on 03/12/19at 18:03; Start 03/12/19 at 15:30; Stop 03/12/19 at 16:29; Status DC Magnesium Sulfate 100 ml @ 25 mls/hr 1X ONCE IV Last administered on 03/12/19at 16:27; Start 03/12/19 at 15:30; Stop 03/12/19 at 19:29; Status DC Azithromycin 250 ml @ 250 mls/hr 1X ONCE IV Last administered on 03/12/19at 15:50; Start 03/12/19 at 15:30; Stop 03/12/19 at 16:29; Status DC Ceftriaxone Sodium (Rocephin) 1 gm 1X ONCE IVP Last administered on 03/12/19at 15:50; Start 03/12/19 at 15:30; Stop 03/12/19 at 15:32; Status DC Fentanyl Citrate (Fentanyl 2ml Vial) 50 mcg 1X ONCE IV Last administered on 03/12/19at 16:45; Start 03/12/19 at 16:30; Stop 03/12/19 at 16:39; Status DC Ondansetron HCl (Zofran) 4 mg PRN Q8HRS PRN IV NAUSEA/VOMITING; Start 03/12/19 at 17:15; Stop 03/12/19 at 17:14; Status DC Fentanyl Citrate (Fentanyl 2ml Vial) 50 mcg PRN Q1HR PRN IV PAIN; Start 03/12/19 at 17:15; Stop 03/13/19 at 17:14; Status DC Acetaminophen (Tylenol) 650 mg PRN Q4HRS PRN PO FEVER; Start 03/12/19 at 17:15; Stop 03/13/19 at 17:14; Status DC Albuterol/ Ipratropium (Duoneb) 3 ml RTQID NEB ; Start 03/12/19 at 20:00; Stop 03/12/19 at 17:13; Status DC Labetalol HCl (Normodyne Iv Push) 20 mg PRN Q2HR PRN IVP HYPERTENSION; Start 03/12/19 at 17:15 Albuterol/ Ipratropium (Duoneb) 3 ml RTQID NEB Last administered on 03/14/19at 07:33; Start 03/12/19 at 20:00 Acetaminophen/ Codeine Phosphate (Tylenol #3) 1 tab PRN Q6HRS PRN PO MODERATE PAIN; Start 03/12/19 at 17:15 Ondansetron HCl (Zofran) 4 mg PRN Q6HRS PRN IV NAUSEA/VOMITING; Start 03/12/19 at 17:15 Calcium Carbonate/ Glycine (Tums) 500 mg PRN AFTMEALHC PRN PO INDIGESTION Last administered on 03/13/19at 18:16; Start 03/12/19 at 17:15 Zolpidem Tartrate (Ambien) 5 mg PRN QHS PRN PO INSOMNIA, 2ND CHOICE; Start 03/12/19 at 17:15 Temazepam (Restoril) 7.5 mg PRN QHS PRN PO INSOMNIA, 1ST CHOICE; Start 03/12/19 at 17:15 Potassium Chloride (Klor-Con) 40 meq 1X ONCE PO ; Start 03/12/19 at 17:15; Stop 03/12/19 at 17:16; Status DC Albuterol Sulfate (Ventolin Neb Soln) 2.5 mg PRN Q6HRS PRN INH SHORTNESS OF BREATH Last administered on 03/14/19 02:45; Start 03/12/19 at 17:15 Allopurinol (Zyloprim) 100 mg DAILY PO Last administered on 03/14/19 08:41; Start 03/13/19 at 09:00 Amlodipine Besylate (Norvasc) 10 mg DAILY PO Last administered on 03/14/19 08:34; Start 03/13/19 at 09:00 Aripiprazole (Abilify) 5 mg DAILY PO Last administered on 03/13/19 08:59; Start 03/13/19 at 09:00 Atorvastatin Calcium (Lipitor) 40 mg QHS PO Last administered on 03/13/19 20:29; Start 03/12/19 at 21:00 Colchicine (Colcrys) 0.6 mg DAILY PO Last administered on 03/14/19 08:41; Start 03/13/19 at 09:00 EZETIMIBE (Zetia) 10 mg DAILY PO Last administered on 03/13/19 08:59; Start 03/13/19 at 09:00 Ferrous Sulfate (Feosol) 325 mg DAILY PO ; Start 03/13/19 at 09:00 Fluticasone Propionate (Flonase) 2 spray DAILY NS ; Start 03/13/19 at 09:00 Hydralazine HCl (Apresoline) 50 mg TID PO Last administered on 03/13/19at 13:53; Start 03/12/19 at 21:00; Stop 03/13/19 at 16:19; Status DC Acetaminophen/ Hydrocodone Bitart (Lortab 5/325) 1 tab PRN Q6HRS PRN PO MODERATE PAIN (2nd Choice) Last administered on 03/13/19at 20:29; Start 03/12/19 at 17:15 Ondansetron HCl (Zofran Odt) 4 mg PRN Q4HRS PRN PO NAUSEA; Start 03/12/19 at 17:15 Hydroxyzine HCl (Atarax) 25 mg PRN Q6HRS PRN PO ITCHING; Start 03/12/19 at 18:00 Cetirizine HCl (ZyrTEC) 10 mg DAILY PO Last administered on 03/13/19 08:59; Start 03/13/19 at 09:00 Losartan Potassium (Cozaar) 50 mg DAILY PO Last administered on 03/14/19 08:34; Start 03/13/19 at 09:00 Meloxicam (Mobic) 15 mg DAILY PO Last administered on 03/14/19 08:34; Start 03/13/19 at 09:00 Metoprolol Succinate (Toprol Xl) 200 mg QHS PO Last administered on 03/13/19 20:29; Start 03/12/19 at 21:00 Multivitamins (Thera M Plus) 1 tab DAILY PO ; Start 03/13/19 at 09:00 Pantoprazole Sodium (Protonix) 40 mg DAILYAC PO Last administered on 03/14/19 08:34; Start 03/13/19 at 07:30 Cyclobenzaprine HCl (Flexeril) 10 mg TID PO Last administered on 03/13/19 20:29; Start 03/12/19 at 21:00 Potassium Chloride (Klor-Con) 20 meq DAILYWBKFT PO ; Start 03/13/19 at 08:00; Stop 03/13/19 at 09:46; Status DC Sumatriptan Succinate (Imitrex) 50 mg PRN DAILY PRN PO MIGRAINE HEADACHE; Start 03/12/19 at 18:00 Benzonatate (Tessalon Perle) 100 mg [id number] PO Last administered on 03/13/19 20:29; Start 03/12/19 at 21:00 Methylprednisolone Sodium Succinate (SOLU-Medrol 40MG VIAL) 40 mg Q8HRS IV Last administered on 03/14/19 06:00; Start 03/12/19 at 22:00 Hydrochlorothiazide (Microzide) 12.5 mg DAILY PO Last administered on 03/14/19 08:34; Start 03/13/19 at 09:00 Nicotine (Nicoderm Cq 21mg) 1 patch PRN DAILY PRN TD SMOKING CESSATION; Start 03/12/19 at 18:15 Sodium Chloride 1,000 ml @ 100 mls/hr Q10H IV Last administered on 03/14/19 02:31; Start 03/12/19 at 21:15 Potassium Bicarbonate (Potassium Effervescent Tablet) 20 meq DAILYWBKFT PO Last administered on 03/14/19at 08:34; Start 03/13/19 at 10:00 Budesonide (Pulmicort) 0.5 mg RTBID NEB Last administered on 03/14/19at 07:33; Start 03/13/19 at 20:00 Hydralazine HCl (Apresoline) 75 mg TID PO Last administered on 03/14/19at 08:34; Start 03/13/19 at 21:00 Active Scripts Active Orphenadrine Citrate 100 Mg Tablet.er 1 Tab PO BID Hydrocodone-Apap 5-325 (Hydrocodone Bit/Acetaminophen) 1 Tab Tablet 1 Tab PO PRN Q6HRS PRN Doxycycline Hyclate 100 Mg Tablet 100 Mg PO BID Prednisone (Prednisone) 10 Mg Tablet 10 Mg PO UD Take 5 tablets by mouth daily for 2 days, then take 4 tablets by mouth daily for 2 days, then take 3 tablets by mouth daily for 2 days, then take 2 tablets by mouth daily for 2 days, then take 1 tablets by mouth daily for 2 days, then stop. [guaiFENesin/CODEINE 100mg/10mg] 5 ML Liquid 5 Ml PO PRN Q6HRS PRN Proair Hfa Inhaler (Albuterol Sulfate) 8.5 Gm Hfa.aer.ad 1 Puff INH PRN Q6HRS PRN Omeprazole 20 Mg Tablet.dr 1 Tab PO DAILY Hydralazine Hcl 50 Mg Tablet 50 Mg PO TID 30 Days Ventolin Hfa Inhaler (Albuterol Sulfate) 18 Gm Hfa.aer.ad 2 Puff INH Q4HRS Zetia (Ezetimibe) 10 Mg Tablet 10 Mg PO DAILY 90 Days Allopurinol 100 Mg Tablet 100 Mg PO DAILY 90 Days Atorvastatin Calcium 40 Mg Tablet 40 Mg PO QHS 30 Days Amlodipine Besylate 10 Mg Tablet 10 Mg PO DAILY 30 Days Reported Fluticasone Propionate Nasal [place] (Fluticasone Propionate) 16 Gm [place].susp 2 [place] NS DAILY Loratadine 10 Mg Tablet 1 Tab PO DAILY Aripiprazole 5 Mg Tablet 5 Mg PO DAILY Potassium Chloride 20 Meq Tablet.er 20 Meq PO DAILY Ondansetron Odt (Ondansetron) 4 Mg Tab.rapdis 1 Tab PO PRN Q4HRS PRN Metoprolol Succinate ( Xl ) (Metoprolol Succinate) 200 Mg Tab.er.24h 1 Tab PO HS Losartan-Hctz 50-12.5 Mg Tab (Losartan/Hydrochlorothiazide) 1 Each Tablet 1 Tab PO DAILY Symbicort 160-4.5 Mcg Inhaler (Budesonide/Formoterol Fumarate) 10.2 Gm Hfa.aer.ad 2 Puff IH BID Vistaril (Hydroxyzine Pamoate) 25 Mg Capsule 25 Mg PO PRN PRN Meloxicam 15 Mg Tablet 15 Mg PO DAILY Ferrous Sulfate 325 Mg Tablet 325 Mg PO DAILY Colcrys (Colchicine) 0.6 Mg Tablet 0.6 Mg PO DAILY Imitrex (Sumatriptan Succinate) 50 Mg Tablet 50 Mg PO ONCE PRN Multi-Day Vitamins (Multivitamin) 1 Each Tablet 1 Tab PO DAILY Vital Signs Vital Signs Date Time Temp Pulse Resp B/P (MAP) Pulse Ox O2 Delivery O2 Flow Rate FiO2 03/14/19 10:58 97.6 78 18 170/102 (124) 97 Room Air 97.6 Labs Laboratory Tests Test 03/12/19 14:34 03/12/19 19:15 03/12/19 21:43 03/13/19 03:35 White Blood Count 9.9 x10^3/uL (4.0-11.0) Red Blood Count 4.25 x10^6/uL (3.50-5.40) Hemoglobin 12.9 g/dL (12.0-15.5) Hematocrit 38.0 % (36.0-47.0) Mean Corpuscular Volume 89 fL (79-100) Mean Corpuscular Hemoglobin 30 pg (25-35) Mean Corpuscular Hemoglobin Concent 34 g/dL (31-37) Red Cell Distribution Width 13.2 % (11.5-14.5) Platelet Count 291 x10^3/uL (140-400) Neutrophils (%) (Auto) 59 % (31-73) Lymphocytes (%) (Auto) 31 % (24-48) Monocytes (%) (Auto) 8 % (0-9) Eosinophils (%) (Auto) 2 % (0-3) Basophils (%) (Auto) 1 % (0-3) Neutrophils # (Auto) 5.8 x10^3/uL (1.8-7.7) Lymphocytes # (Auto) 3.0 x10^3/uL (1.0-4.8) Monocytes # (Auto) 0.8 x10^3/uL (0.0-1.1) Eosinophils # (Auto) 0.2 x10^3/uL (0.0-0.7) Basophils # (Auto) 0.1 x10^3/uL (0.0-0.2) Sodium Level 143 mmol/L (136-145) 138 mmol/L (136-145) Potassium Level 3.3 mmol/L (3.5-5.1) 4.3 mmol/L (3.5-5.1) Chloride Level 104 mmol/L (98-107) 105 mmol/L (98-107) Carbon Dioxide Level 19 mmol/L (21-32) 21 mmol/L (21-32) Anion Gap 20 (6-14) 12 (6-14) Blood Urea Nitrogen 3 mg/dL (7-20) 8 mg/dL (7-20) Creatinine 0.6 mg/dL (0.6-1.0) 0.9 mg/dL (0.6-1.0) Estimated GFR (Cockcroft-Gault) 129.7 81.2 BUN/Creatinine Ratio 5 (6-20) Glucose Level 142 mg/dL (70-99) 222 mg/dL (70-99) Lactic Acid Level 4.7 mmol/L (0.4-2.0) 4.2 mmol/L (0.4-2.0) 4.4 mmol/L (0.4-2.0) Calcium Level 8.8 mg/dL (8.5-10.1) 7.9 mg/dL (8.5-10.1) Magnesium Level 1.6 mg/dL (1.8-2.4) 2.1 mg/dL (1.8-2.4) Total Bilirubin 0.2 mg/dL (0.2-1.0) Aspartate Amino Transf (AST/SGOT) 48 U/L (15-37) Alanine Aminotransferase (ALT/SGPT) 59 U/L (14-59) Alkaline Phosphatase 128 U/L (46-116) Troponin I Quantitative < 0.017 ng/mL (0.000-0.055) < 0.017 ng/mL (0.000-0.055) IV-Mhd-W-Type Natriuretic Peptide 44 pg/mL (0-124) Total Protein 7.2 g/dL (6.4-8.2) Albumin 2.7 g/dL (3.4-5.0) Albumin/Globulin Ratio 0.6 (1.0-1.7) Glucose (Fingerstick) 199 mg/dL (70-99) Test 03/13/19 04:10 Urine Collection Type Unknown Urine Color Yellow Urine Clarity Clear Urine pH 5.5 Urine Specific [place] 1.010 Urine Protein Negative mg/dL (NEG-TRACE) Urine Glucose (UA) Negative mg/dL (NEG) Urine Ketones (Stick) Negative mg/dL (NEG) Urine Blood Negative (NEG) Urine Nitrite Negative (NEG) Urine Bilirubin Negative (NEG) Urine Urobilinogen Dipstick 0.2 mg/dL (0.2 mg/dL) Urine Leukocyte Esterase Negative (NEG) Urine RBC 0 /HPF (0-2) Urine WBC 0 /HPF (0-4) Urine Squamous Epithelial Cells Few /LPF Urine Bacteria 0 /HPF (0-FEW) Urine Mucus Slight /LPF Urine Opiates Screen Neg (NEG) Urine Methadone Screen Neg (NEG) Urine Barbiturates Neg (NEG) Urine Phencyclidine Screen Neg (NEG) Urine Amphetamine/Methamphetamine Neg (NEG) Urine Benzodiazepines Screen Neg (NEG) Urine Cocaine Screen Neg (NEG) Urine Cannabinoids Screen Neg (NEG) Urine Ethyl Alcohol Pos (NEG) Allergies Allergies Coded Allergies Type Severity Reaction Last Updated Verified lisinopril Allergy Intermediate COUGH 01/07/19 Yes I S O L A T I O N *CONTACT* Allergy Unknown 01/07/19 Yes Disposition/Orders: D/C to Home Patient Instructions d/c planning 35 min SHRAVAN CARMEN MD Mar 14, 2019 13:50
[2019-03-14] MEDS ORDERED: IPRA3AMP29 NEB (13:56)
[2019-03-14] MEDS ORDERED: BENZ-8 PO (13:56)
[2019-03-14] MEDS ORDERED: HYDR-2868 PO (13:56)
--- NOTE | 2019-03-14 14:37 | NUR ---
Pt discharged to home. Discharge teaching given with pt verbalizing understanding. Scripts handed to Pt. Pt walked out with transportation provided by family.
== END 2019-03-14 14:17 | disposition home or self-care (01) | DRG 190 ==
LOC: ER 13:35 → 6 SOUTH 16:38
PROVIDERS: ADMIT Internal Medicine; ATTEND Internal Medicine
DX: J44.1 Chronic obstructive pulmonary disease with (acute) exacerbation (principal); J96.01 Acute respiratory failure with hypoxia; E43 Unspecified severe protein-calorie malnutrition; I13.0 Hypertensive heart and chronic kidney disease with heart failure and stage 1 through stage 4 chronic kidney disease, or unspecified chronic kidney disease; E11.22 Type 2 diabetes mellitus with diabetic chronic kidney disease; E78.5 Hyperlipidemia, unspecified; E83.42 Hypomagnesemia; E87.6 Hypokalemia; F17.210 Nicotine dependence, cigarettes, uncomplicated; G43.909 Migraine, unspecified, not intractable, without status migrainosus; I50.9 Heart failure, unspecified; K21.9 Gastro-esophageal reflux disease without esophagitis; N18.9 Chronic kidney disease, unspecified; E66.9 Obesity, unspecified; F14.90 Cocaine use, unspecified, uncomplicated; F32.9 Major depressive disorder, single episode, unspecified; F41.9 Anxiety disorder, unspecified; K57.90 Diverticulosis of intestine, part unspecified, without perforation or abscess without bleeding; M10.9 Gout, unspecified; M32.9 Systemic lupus erythematosus, unspecified; Z82.49 Family history of ischemic heart disease and other diseases of the circulatory system; Z82.5 Family history of asthma and other chronic lower respiratory diseases; Z83.3 Family history of diabetes mellitus; Z90.49 Acquired absence of other specified parts of digestive tract; Z90.710 Acquired absence of both cervix and uterus; Z68.26 Body mass index [BMI] 26.0-26.9, adult; Z88.8 Allergy status to other drugs, medicaments and biological substances; Z91.041 Radiographic dye allergy status; Z98.51 Tubal ligation status; Z71.6 Tobacco abuse counseling
CPT/HCPCS: 36415; 71046; 80048; 80053; 80307; 81001; 82962; 83605; 83735; 83880; 84484; 85025; 87040; 93005; 94640; 94644; 96365; 96366; 96368; 96375; J0456; J0696; J2920; J3010; J3475; J7030; J7040; J7512; J7613; J7620; J7626; 99285-25; G0378

== ENCOUNTER 2019-04-01 06:51 | Emergency (ER) | payer MEDICAID ==
[~2019-04-01] VITALS: Ht 165.1 cm; Wt 75.3 kg
[~2019-04-01 06:51] MED LIST changes: -ARIP5TAB19 PO; +ARIP5TAB58 PO; +BENZ-8 PO; +HYDR-2868 PO; +SIMV40TA18 PO; -SIMV40TA3 PO
--- NOTE | 2019-04-01 07:31 | PHYS DOC ---
Past Medical History Past Medical History: Asthma, COPD, Diabetes-Type II, Hypertension Additional Past Medical Histor: Lupus Past Surgical History: Appendectomy, Hysterectomy, Other Additional Past Surgical Histo: BACK SURGERY Alcohol Use: Rarely Drug Use: Cocaine Social History Narrative: HX OF COCAINE. LAST USED 2016 Adult General Chief Complaint Chief Complaint: ABDOMINAL PAIN HPI HPI Patient is a 48 year old female who presents to ER today for evaluation of epigastric abdominal pain, associated with some nausea for about 4 days. Patient denies any chest pain, no trouble breathing. Patient says she has this problem in the past, but could not find WHAT WAS WRONG with her. She has history of diabetic, hypertension. Patient has not taken her medications this morning for her blood pressure. She denies any cough, no fever, no diarrhea. aLL OTHER ros IS NEGATIVE UNLESS OTHERWISE NOTED IN hpi Review of Systems Review of Systems See above Family History Family History See above Current Medications Current Medications Current Medications Medications (Trade) Dose Ordered Sig/Nona Start Time Stop Time Status Last Admin Dose Admin Clonidine HCl (Catapres) 0.2 mg 1X ONCE 04/01/19 09:15 04/01/19 09:21 DC 04/01/19 09:59 0.2 MG Fentanyl Citrate (Fentanyl 2ml Vial) 50 mcg 1X ONCE 04/01/19 09:45 04/01/19 09:46 DC 04/01/19 10:02 50 MCG Hydralazine HCl (Apresoline) 50 mg 1X STAT 04/01/19 09:15 04/01/19 09:21 DC 04/01/19 10:01 50 MG Metoclopramide HCl (Reglan Vial) 10 mg 1X ONCE 04/01/19 09:45 04/01/19 09:46 DC 04/01/19 09:09 10 MG Morphine Sulfate (Morphine Sulfate) 4 mg 1X ONCE 04/01/19 08:00 04/01/19 08:01 DC 04/01/19 07:44 4 MG Ondansetron HCl (Zofran) 8 mg 1X ONCE 04/01/19 08:00 04/01/19 08:01 DC 04/01/19 07:44 8 MG Allergies Allergies Allergies Coded Allergies Type Severity Reaction Last Updated Verified lisinopril Allergy Intermediate COUGH 01/07/19 Yes I S O L A T I O N *CONTACT* Allergy Unknown 01/07/19 Yes Physical Exam Physical Exam See above Constitutional: Well developed, well nourished, no acute distress, non-toxic appearance. [] HENT: Normocephalic, atraumatic, bilateral external ears normal, oropharynx moist, no oral exudates, nose normal. [] Eyes: PERRLA, EOMI, conjunctiva normal, no discharge. [] Neck: Normal range of motion, no tenderness, supple, no stridor. [] Cardiovascular:Heart rate regular rhythm, no murmur [] Lungs & Thorax: Bilateral breath sounds clear to auscultation [] Abdomen: Bowel sounds normal, soft, There is tenderness to palpation in epigastric area, no masses, no pulsatile masses. [] Skin: Warm, dry, no erythema, no rash. [] Back: No tenderness, no CVA tenderness. [] Extremities: No tenderness, no cyanosis, no clubbing, ROM intact, no edema. [] Neurologic: Alert and oriented X 3, normal motor function, normal sensory function, no focal deficits noted. [] Psychologic: Affect normal, judgement normal, mood normal. [] Current Patient Data Vital Signs Vital Signs Date Time Temp Pulse Resp B/P (MAP) Pulse Ox O2 Delivery O2 Flow Rate FiO2 04/01/19 10:02 16 97 Room Air 04/01/19 10:01 99 185/119 04/01/19 07:17 98.1 98.1 See above Lab Values Laboratory Tests Test 04/01/19 07:30 04/01/19 07:55 White Blood Count 10.2 x10^3/uL (4.0-11.0) Red Blood Count 4.92 x10^6/uL (3.50-5.40) Hemoglobin 14.8 g/dL (12.0-15.5) Hematocrit 42.6 % (36.0-47.0) Mean Corpuscular Volume 87 fL (79-100) Mean Corpuscular Hemoglobin 30 pg (25-35) Mean Corpuscular Hemoglobin Concent 35 g/dL (31-37) Red Cell Distribution Width 14.3 % (11.5-14.5) Platelet Count 362 x10^3/uL (140-400) Neutrophils (%) (Auto) 76 % (31-73) H Lymphocytes (%) (Auto) 17 % (24-48) L Monocytes (%) (Auto) 4 % (0-9) Eosinophils (%) (Auto) 2 % (0-3) Basophils (%) (Auto) 1 % (0-3) Neutrophils # (Auto) 7.8 x10^3/uL (1.8-7.7) H Lymphocytes # (Auto) 1.7 x10^3/uL (1.0-4.8) Monocytes # (Auto) 0.4 x10^3/uL (0.0-1.1) Eosinophils # (Auto) 0.2 x10^3/uL (0.0-0.7) Basophils # (Auto) 0.1 x10^3/uL (0.0-0.2) Prothrombin Time 13.0 SEC (11.7-14.0) Prothrombin Time INR 1.0 (0.8-1.1) Activated Partial Thromboplast Time 22 SEC (24-38) L Sodium Level 135 mmol/L (136-145) L Potassium Level 3.0 mmol/L (3.5-5.1) L Chloride Level 98 mmol/L (98-107) Carbon Dioxide Level 27 mmol/L (21-32) Anion Gap 10 (6-14) Blood Urea Nitrogen 10 mg/dL (7-20) Creatinine 0.7 mg/dL (0.6-1.0) Estimated GFR (Cockcroft-Gault) 108.5 BUN/Creatinine Ratio 14 (6-20) Glucose Level 95 mg/dL (70-99) Calcium Level 9.4 mg/dL (8.5-10.1) Total Bilirubin 0.8 mg/dL (0.2-1.0) Aspartate Amino Transferase (AST) 134 U/L (15-37) H Alanine Aminotransferase (ALT) 95 U/L (14-59) H Alkaline Phosphatase 153 U/L (46-116) H Troponin I Quantitative < 0.017 ng/mL (0.000-0.055) Total Protein 8.1 g/dL (6.4-8.2) Albumin 3.0 g/dL (3.4-5.0) L Albumin/Globulin Ratio 0.6 (1.0-1.7) L Lipase 187 U/L (73-393) Laboratory Tests 04/01/19 07:30 Laboratory Tests 04/01/19 07:55 EKG EKG EKG WAS READ BY THIS PHYSICIAN AT 0735, RATE OF 101, SINUS TACHYCARDIA, NO STEMI. Radiology/Procedures Radiology/Procedures [][facility] [address] [place] [address] IMAGING REPORT Signed PATIENT: CALDERON YAP ACCOUNT: [id number] : 1970 LOCATION: ER AGE: 48 SEX: F EXAM STATUS: REG ER ORD. PHYSICIAN: CHANDANA SILVA DO REASON: RUQ ABDOMINAL PAIN, ABNORMAL LFT PROCEDURE: ABDOMEN LTD STUDY: Realtime grayscale and color Doppler ultrasonography of the right upper quadrant. INDICATION: Right upper quadrant abdominal pain. Abnormal liver function tests. COMPARISON: Correlation is made to the CT abdomen/pelvis from 12/18/2018.. Findings: The liver is prominent in size measuring up to 21 cm in length. Diffuse increased hepatic echogenicity as can be seen with underlying hepatic steatosis. No focal parenchymal abnormality. The gallbladder wall is within normal limits for thickness. No pericholecystic free fluid or wall hyperemia. No sonographic Rubio's sign was observed by the reliability technicians. No gallstones or layering sludge visualized. Normal caliber of the common bile duct measuring 0.5 cm. The right kidney measures 12 cm in length with normal cortical thickness and echogenicity. Flow within the main portal vein is hepatopedal. The visualized portions of the pancreas are unremarkable. Impression: 1. Unremarkable sonographic appearance of the gallbladder. No evidence for acute cholecystitis. 2. Increased size of the liver which also exhibits diffusely increased hepatic echogenicity. This appearance can be seen in setting of hepatic steatosis which was also noted on the 12/18/2018 CT. Electronically signed by: MIMI BHATT MD (04/01/2019 9:41 AM) [facility] DICTATED and SIGNED BY: MIMI BHATT MD DATE: 04/01/19940 Course & Med Decision Making Course & Med Decision Making Pertinent Labs and Imaging studies reviewed. (See chart for details) [] Dragon Disclaimer Dragon Disclaimer This electronic medical record was generated, in whole or in part, using a voice recognition dictation system. Departure Departure Impression: Primary Impression: Abdominal pain Additional Impressions: Fatty liver Accelerated hypertension Disposition: HOME, SELF-CARE Condition: STABLE Referrals: Bernie ANTHONY MD (PCP) PLEASE FOLLOW UP WITH YOUR DOCTOR FOR A REFERRAL TO GI SPECIALIST THIS WEEK. Patient Instructions: Abdominal Pain, Hypertension Problem Qualifiers CHANDANA SILVA DO Apr 01, 2019 07:31
[2019-04-01 07:42] LABS: BASO # 0.1 x10^3/uL (0.0-0.2); BASO % 1 % (0-3); EOS # 0.2 x10^3/uL (0.0-0.7); EOS % 2 % (0-3); HEMATOCRIT 42.6 % (36.0-47.0); HEMOGLOBIN 14.8 g/dL (12.0-15.5); LYMPH # 1.7 x10^3/uL (1.0-4.8); LYMPH % 17 % (24-48); MEAN CORPUSCULAR HEMOGLOBIN 30 pg (25-35); MEAN CORPUSCULAR HGB CONC 35 g/dL (31-37); MEAN CORPUSCULAR VOLUME 87 fL (79-100); MONO # 0.4 x10^3/uL (0.0-1.1); MONO % 4 % (0-9); NEUT # 7.8 x10^3/uL (1.8-7.7); NEUT % 76 % (31-73); PLATELET COUNT 362 x10^3/uL (140-400); RED BLOOD COUNT 4.92 x10^6/uL (3.50-5.40); RED CELL DISTRIBUTION WIDTH 14.3 % (11.5-14.5); WHITE BLOOD COUNT 10.2 x10^3/uL (4.0-11.0)
[2019-04-01] MEDS ORDERED: ONDANSETRON PF 4 MG/2 ML VIAL. IVP ONE (08:00)
[2019-04-01] MEDS ORDERED: MORPHINE SULFATE 4 MG/ML VIAL. IV ONE (08:00)
[2019-04-01 08:23] LABS: ALBUMIN/GLOBULIN RATIO 0.6 (1.0-1.7); CALCIUM 9.4 mg/dL (8.5-10.1); CREATININE 0.7 mg/dL (0.6-1.0); GFR 108.5; TOTAL BILIRUBIN 0.8 mg/dL (0.2-1.0); TOTAL PROTEIN 8.1 g/dL (6.4-8.2)
[2019-04-01] MEDS ORDERED: cloNIDine HCL 0.1 MG TABLET PO ONE (09:15)
--- NOTE | 2019-04-01 09:44 | RAD ---
STUDY: Realtime grayscale and color Doppler ultrasonography of the right upper quadrant. INDICATION: Right upper quadrant abdominal pain. Abnormal liver function tests. COMPARISON: Correlation is made to the CT abdomen/pelvis from 12/18/2018.. Findings: The liver is prominent in size measuring up to 21 cm in length. Diffuse increased hepatic echogenicity as can be seen with underlying hepatic steatosis. No focal parenchymal abnormality. The gallbladder wall is within normal limits for thickness. No pericholecystic free fluid or wall hyperemia. No sonographic Rubio's sign was observed by the communications technician. No gallstones or layering sludge visualized. Normal caliber of the common bile duct measuring 0.5 cm. The right kidney measures 12 cm in length with normal cortical thickness and echogenicity. Flow within the main portal vein is hepatopedal. The visualized portions of the pancreas are unremarkable. Impression: 1. Unremarkable sonographic appearance of the gallbladder. No evidence for acute cholecystitis. 2. Increased size of the liver which also exhibits diffusely increased hepatic echogenicity. This appearance can be seen in setting of hepatic steatosis which was also noted on the 12/18/2018 CT. Electronically signed by: MIMI BHATT MD (04/01/2019 9:41 AM) [id number]
[2019-04-01] MEDS ORDERED: fentaNYL PF VIAL 100 MCG/2 ML VIAL IV ONE (09:45)
[2019-04-01] MEDS ORDERED: METOCLOPRAMIDE HCL 10 MG/2 ML VIAL. IV ONE (09:45)
[2019-04-01 10:16] LABS: BILIRUBIN,URINE MODERATE (NEG); CLARITY,URINE CLOUDY; COLOR,URINE AMBER; NITRITE,URINE NEGATIVE (NEG); PH,URINE 6.5; PROTEIN,URINE 30 mg/dL (NEG-TRACE)
[2019-04-01 10:57] LABS: SQUAMOUS EPITHELIAL CELL,UR MOD /LPF
[2019-04-01 10:59] LABS: BACTERIA,URINE MODERATE /HPF (0-FEW); RBC,URINE 0 /HPF (0-2); WBC,URINE >40 /HPF (0-4)
[2019-04-01 11:03] VITALS: BP 149/85
--- NOTE | 2019-04-01 12:25 | EKG ---
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
== END 2019-04-01 11:03 | disposition home or self-care (01) ==
LOC: ER 06:51
DX: K76.0 Fatty (change of) liver, not elsewhere classified (principal); I10 Essential (primary) hypertension; R11.0 Nausea; J44.9 Chronic obstructive pulmonary disease, unspecified; E11.9 Type 2 diabetes mellitus without complications; Z90.89 Acquired absence of other organs; Z90.710 Acquired absence of both cervix and uterus; Z88.8 Allergy status to other drugs, medicaments and biological substances; Z91.041 Radiographic dye allergy status
CPT/HCPCS: 36415; 76705; 80053; 81001; 83690; 84484; 85025; 85610; 85730; 87086; 93005; 96374; 96375; 99285; J2270; J2405; J2765; J3010

== ENCOUNTER 2019-04-06 20:06 | Emergency (ER) | payer MEDICAID ==
[~2019-04-06] VITALS: Ht 165.1 cm; Wt 75.3 kg
[~2019-04-06 20:06] MED LIST changes: -SIMV40TA18 PO; +SIMV40TA3 PO
[2019-04-06 20:24] LABS: BILIRUBIN,URINE NEGATIVE (NEG); CLARITY,URINE CLEAR; COLOR,URINE YELLOW; NITRITE,URINE NEGATIVE (NEG); PROTEIN,URINE NEGATIVE (NEG-TRACE)
[2019-04-06 20:31] LABS: BACTERIA,URINE MODERATE /HPF (0-FEW); RBC,URINE OCC /HPF (0-2); SQUAMOUS EPITHELIAL CELL,UR MOD /LPF
[2019-04-06 20:50] LABS: BASO # 0.1 x10^3/uL (0.0-0.2); BASO % 1 % (0-3); EOS # 0.4 x10^3/uL (0.0-0.7); EOS % 4 % (0-3); HEMATOCRIT 38.5 % (36.0-47.0); HEMOGLOBIN 13.3 g/dL (12.0-15.5); LYMPH % 22 % (24-48); MEAN CORPUSCULAR HEMOGLOBIN 30 pg (25-35); MEAN CORPUSCULAR HGB CONC 35 g/dL (31-37); MEAN CORPUSCULAR VOLUME 87 fL (79-100); MONO # 0.9 x10^3/uL (0.0-1.1); MONO % 10 % (0-9); NEUT # 5.6 x10^3/uL (1.8-7.7); NEUT % 63 % (31-73); PLATELET COUNT 379 x10^3/uL (140-400); RED BLOOD COUNT 4.41 x10^6/uL (3.50-5.40); RED CELL DISTRIBUTION WIDTH 14.2 % (11.5-14.5)
[2019-04-06 20:59] LABS: CALCIUM 9.7 mg/dL (8.5-10.1); CREATININE 0.9 mg/dL (0.6-1.0); GFR 81.2; POTASSIUM 3.3 mmol/L (3.5-5.1)
[2019-04-06] MEDS ORDERED: fentaNYL PF VIAL 100 MCG/2 ML VIAL IV ONE (21:00)
[2019-04-06] MEDS ORDERED: LIDO:MAALOX 1:1 20 ML SINGLE DOSE. SWSW ONE (21:00)
[2019-04-06 21:05] LABS: ALBUMIN 3.2 g/dL (3.4-5.0); ALBUMIN/GLOBULIN RATIO 0.7 (1.0-1.7); TOTAL BILIRUBIN 0.4 mg/dL (0.2-1.0); TOTAL PROTEIN 8.1 g/dL (6.4-8.2)
[2019-04-06 21:29] LABS: % BANDS 1 % (0-9); % EOS 6 % (0-5); % LYMPHS 22 % (24-48); % METAS 1 % (0-0); % MONOS 11 % (0-10); % MYELOS 1 % (0-0); % SEGS 58 % (35-66)
[2019-04-06 21:30] LABS: PLT ESTIMATE ADEQUATE (ADEQUATE)
[2019-04-06] MEDS ORDERED: HYDR-3164 PO (21:58)
[2019-04-06] MEDS ORDERED: PANT20TA2 PO (21:59)
[2019-04-06 22:09] VITALS: BP 152/93
[2019-04-06] MEDS ORDERED: HYDROcodone/APAP 5/325MG 1 TAB TABLET PO ONE (22:15)
--- NOTE | 2019-04-06 23:44 | PHYS DOC ---
Past Medical History Past Medical History: Asthma, COPD, Diabetes-Type II, Hypertension Additional Past Medical Histor: Lupus Past Surgical History: Appendectomy, Hysterectomy, Other Additional Past Surgical Histo: BACK SURGERY Alcohol Use: Rarely Drug Use: Cocaine Adult General Chief Complaint Chief Complaint: ABDOMINAL PAIN [facility] HPI Patient is a 48 year old female presenting with epigastric pain Onset 5 days ago in fact she has been feeling on and off since about October she is coming to the ER multiple times for this she does take prednisone intermittently for lupus. She had an ultrasound a few days ago that was read out as basically negative acute in addition she had a CT abdomen and pelvis the last time I saw her here in the emergency room with basically identical symptoms and that was also negative acute. Patient is currently not taking any pain medication at home for the symptoms no vomiting no nausea able to eat eating makes it a little worse it is isolated to the epigastric area described as dull nonradiating no fever no diarrhea no chest pain no shortness of breath not exertional Review of Systems Review of Systems Constitutional: Denies fever or chills [] Eyes: Denies change in visual acuity, redness, or eye pain [] HENT: Denies nasal congestion or sore throat [] Respiratory: Denies cough or shortness of breath [] Cardiovascular: No additional information not addressed in HPI [] GI: Musculoskeletal: Denies back pain or joint pain [] Neurologic: Denies headache, focal weakness or sensory changes [] Endocrine: Denies polyuria or polydipsia [] All other systems were reviewed and found to be within normal limits, except as documented in this note. Current Medications Current Medications Current Medications Medications (Trade) Dose Ordered Sig/Nona Start Time Stop Time Status Last Admin Dose Admin Acetaminophen/ Hydrocodone Bitart (Lortab 5/325) 2 tab 1X ONCE 04/06/19 22:15 04/06/19 22:16 DC 04/06/19 22:12 2 TAB Fentanyl Citrate (Fentanyl 2ml Vial) 50 mcg 1X ONCE 04/06/19 21:00 04/06/19 21:01 DC 04/06/19 21:05 50 MCG Multi-Ingredient Mouthwash/Gargle (Gi Cocktail) 20 ml 1X ONCE 04/06/19 21:00 04/06/19 21:01 DC 04/06/19 21:06 20 ML Allergies Allergies Allergies Coded Allergies Type Severity Reaction Last Updated Verified lisinopril Allergy Intermediate COUGH 01/07/19 Yes I S O L A T I O N *CONTACT* Allergy Unknown 01/07/19 Yes Physical Exam Physical Exam Constitutional: Well developed, well nourished, no acute distress, non-toxic appearance. [] HENT: Normocephalic, atraumatic, bilateral external ears normal, oropharynx moist, no oral exudates, nose normal. [] Eyes: PERRLA, EOMI, conjunctiva normal, no discharge. [] Neck: Normal range of motion, no tenderness, supple, no stridor. [] Cardiovascular:Heart rate regular rhythm, no murmur [] Lungs & Thorax: Bilateral breath sounds clear to auscultation [] Abdomen: Bowel sounds normal, soft, isolated epigastric without any rebound tenderness, no masses, no pulsatile masses. [] Skin: Warm, dry, no erythema, no rash. [] Back: No tenderness, no CVA tenderness. [] Extremities: No tenderness, no cyanosis, no clubbing, ROM intact, no edema. [] Neurologic: Alert and oriented X 3, normal motor function, normal sensory funct ion, no focal deficits noted. [] Psychologic: Affect normal, judgement normal, mood normal. [] Current Patient Data Vital Signs Vital Signs Date Time Temp Pulse Resp B/P (MAP) Pulse Ox O2 Delivery O2 Flow Rate FiO2 04/06/19 22:12 20 97 Room Air 04/06/19 22:09 97 152/93 (112) 04/06/19 20:30 98.6 98.6 Lab Values Laboratory Tests Test 04/06/19 20:15 04/06/19 20:43 Urine Collection Type Void Urine Color Yellow Urine Clarity Clear Urine pH 6.0 Urine Specific [place] 1.015 Urine Protein Negative mg/dL (NEG-TRACE) Urine Glucose (UA) Negative mg/dL (NEG) Urine Ketones (Stick) Negative mg/dL (NEG) Urine Blood Negative (NEG) Urine Nitrite Negative (NEG) Urine Bilirubin Negative (NEG) Urine Urobilinogen Dipstick 1.0 mg/dL (0.2 mg/dL) Urine Leukocyte Esterase Large (NEG) Urine RBC Occ /HPF (0-2) Urine WBC 5-10 /HPF (0-4) Urine Squamous Epithelial Cells Mod /LPF Urine Bacteria Moderate /HPF (0-FEW) Urine Mucus Slight /LPF White Blood Count 9.0 x10^3/uL (4.0-11.0) Red Blood Count 4.41 x10^6/uL (3.50-5.40) Hemoglobin 13.3 g/dL (12.0-15.5) Hematocrit 38.5 % (36.0-47.0) Mean Corpuscular Volume 87 fL (79-100) Mean Corpuscular Hemoglobin 30 pg (25-35) Mean Corpuscular Hemoglobin Concent 35 g/dL (31-37) Red Cell Distribution Width 14.2 % (11.5-14.5) Platelet Count 379 x10^3/uL (140-400) Neutrophils (%) (Auto) 63 % (31-73) Lymphocytes (%) (Auto) 22 % (24-48) L Monocytes (%) (Auto) 10 % (0-9) H Eosinophils (%) (Auto) 4 % (0-3) H Basophils (%) (Auto) 1 % (0-3) Neutrophils # (Auto) 5.6 x10^3/uL (1.8-7.7) Lymphocytes # (Auto) 2.0 x10^3/uL (1.0-4.8) Monocytes # (Auto) 0.9 x10^3/uL (0.0-1.1) Eosinophils # (Auto) 0.4 x10^3/uL (0.0-0.7) Basophils # (Auto) 0.1 x10^3/uL (0.0-0.2) Segmented Neutrophils % 58 % (35-66) Band Neutrophils % 1 % (0-9) Lymphocytes % 22 % (24-48) L Monocytes % 11 % (0-10) H Eosinophils % 6 % (0-5) H Metamyelocytes % 1 % (0-0) H Myelocytes % 1 % (0-0) H Platelet Estimate Adequate (ADEQUATE) Sodium Level 137 mmol/L (136-145) Potassium Level 3.3 mmol/L (3.5-5.1) L Chloride Level 100 mmol/L (98-107) Carbon Dioxide Level 26 mmol/L (21-32) Anion Gap 11 (6-14) Blood Urea Nitrogen 7 mg/dL (7-20) Creatinine 0.9 mg/dL (0.6-1.0) Estimated GFR (Cockcroft-Gault) 81.2 BUN/Creatinine Ratio 8 (6-20) Glucose Level 126 mg/dL (70-99) H Calcium Level 9.7 mg/dL (8.5-10.1) Total Bilirubin 0.4 mg/dL (0.2-1.0) Aspartate Amino Transferase (AST) 137 U/L (15-37) H Alanine Aminotransferase (ALT) 84 U/L (14-59) H Alkaline Phosphatase 114 U/L (46-116) Troponin I Quantitative < 0.017 ng/mL (0.000-0.055) Total Protein 8.1 g/dL (6.4-8.2) Albumin 3.2 g/dL (3.4-5.0) L Albumin/Globulin Ratio 0.7 (1.0-1.7) L Lipase 219 U/L (73-393) Laboratory Tests 04/06/19 20:43 Laboratory Tests 04/06/19 20:43 EKG EKG []Normal sinus rhythm rate of 86 no acute ischemic changes noted interpreted by me the time of encounter no STEMI seen Radiology/Procedures Radiology/Procedures [] Course & Med Decision Making Course & Med Decision Making Pertinent Labs and Imaging studies reviewed. (See chart for details) []I reviewed multiple prior imaging studies from her recent visits with the same presentation. In summary this is a 48-year-old female presenting with isolated epigastric discomfort I suspect there is a component of gastritis she does take prednisone somewhat regularly the last burst was last month. Labs were unremarkable I reviewed the urine culture from last visit was normal I recommended a trial of antacid therapy pain control and referral follow-up with primary care doctor to get referred to GI. Harvey Disclaimer Dragon Disclaimer This electronic medical record was generated, in whole or in part, using a voice recognition dictation system. Departure Departure Impression: Primary Impression: Abdominal pain Disposition: 01 HOME, SELF-CARE Condition: STABLE Referrals: Bernie ANTHONY MD (PCP) Patient Instructions: Abdominal Pain (Nonspecific) Scripts Pantoprazole Sodium (PROTONIX) 20 Mg Tablet. 1 TAB PO DAILY, #30 TAB Prov: AUSTIN BEDOYA MD 04/06/19 Hydrocodone/Apap 5-325 (NORCO 5-325 TABLET) 1 Each Tablet 1-2 EACH PO PRN Q6HRS PRN for PAIN, #15 as needed for pain Prov: AUSTIN BEDOYA MD 04/06/19 AUSTIN BEDOYA MD Apr 06, 2019 23:44
--- NOTE | 2019-04-07 11:19 | EKG ---
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
== END 2019-04-06 22:14 | disposition home or self-care (01) ==
LOC: ER 20:06
DX: R10.13 Epigastric pain (principal); J44.9 Chronic obstructive pulmonary disease, unspecified; E11.9 Type 2 diabetes mellitus without complications; I10 Essential (primary) hypertension; Z90.89 Acquired absence of other organs; Z90.710 Acquired absence of both cervix and uterus; Z88.8 Allergy status to other drugs, medicaments and biological substances; Z91.041 Radiographic dye allergy status
CPT/HCPCS: 36415; 80053; 81001; 83690; 84484; 85007; 85025; 87086; 93005; 96374; 99285; J3010

== ENCOUNTER 2019-05-07 12:01 | Observation (INO) | payer MEDICAID ==
[~2019-05-07] VITALS: Ht 162.6 cm; Wt 80.3 kg
[~2019-05-07 12:01] MED LIST changes: +HYDR-3164 PO; +PANT20TA2 PO; +SIMV40TA18 PO; -SIMV40TA3 PO
[2019-05-07] MEDS ORDERED: IPRATRPIUM/ALBUTEROL 0.5/2.5MG 3 ML NEBU. NEB ONE (12:30)
[2019-05-07] MEDS ORDERED: LIDO:MAALOX 1:1 20 ML SINGLE DOSE. SWSW ONE (12:30)
[2019-05-07] MEDS ORDERED: ASPIRIN CHEWABLE 81 MG TABLET. PO ONE (12:30)
--- NOTE | 2019-05-07 12:32 | PHYS DOC ---
Past Medical History Past Medical History: Asthma, COPD, Diabetes-Type II, Hypertension Additional Past Medical Histor: Lupus Past Surgical History: Appendectomy, Hysterectomy, Other Additional Past Surgical Histo: BACK SURGERY Smoking: Cigarettes Alcohol Use: Rarely Drug Use: Cocaine Adult General Chief Complaint Chief Complaint: CHEST PAIN HPI HPI Patient is a 48-year-old female who presents to the emergency department for evaluation. She states that this morning she began expressing some left sided chest pain, worsened with shortness of breath, as well as deep breathing, which radiates towards her neck. The pain is described as sharp. She has not had any diaphoresis, but she does admit some increasing cough as well which developed this morning. She reports a flare of her chronic epigastric abdominal pain, which has been going on for quite some time. She has not had any nausea, vomiting, or diaphoresis. She has no prior known cardiac history. She has numerous cardiac risk factors, including diabetes, and tobacco abuse, as well as obesity. There are no alleviating or exacerbating factors to her symptom, except as mentioned above. Assuming a negative troponin, the patient's HEART score is a 4. Review of Systems Review of Systems Constitutional: Denies fever or chills [] Eyes: Denies change in visual acuity, redness, or eye pain [] HENT: Denies nasal congestion or sore throat [] Respiratory: Reports nonproductive cough and shortness of breath as well as dyspnea on exertion[] Cardiovascular: No additional information not addressed in HPI [] GI: Denies nausea, vomiting, bloody stools or diarrhea [] : Denies dysuria or hematuria [] Musculoskeletal: Denies back pain or joint pain [] Integument: Denies rash or skin lesions [] Neurologic: Denies headache, focal weakness or sensory changes [] Endocrine: Denies polyuria or polydipsia [] All other systems were reviewed and found to be within normal limits, except as documented in this note. Current Medications Current Medications Current Medications Medications (Trade) Dose Ordered Sig/Nona Start Time Stop Time Status Last Admin Dose Admin Albuterol/ Ipratropium (Duoneb) 3 ml 1X ONCE 05/07/19 12:30 05/07/19 12:31 DC 05/07/19 12:37 3 ML Aspirin (Children'S Aspirin) 324 mg 1X ONCE 05/07/19 12:30 05/07/19 12:31 DC 05/07/19 12:52 324 MG Multi-Ingredient Mouthwash/Gargle (Gi Cocktail) 20 ml 1X ONCE 05/07/19 12:30 05/07/19 12:31 DC 05/07/19 12:52 20 ML Allergies Allergies Allergies Coded Allergies Type Severity Reaction Last Updated Verified lisinopril Allergy Intermediate COUGH 01/07/19 Yes I S O L A T I O N *CONTACT* Allergy Unknown 01/07/19 Yes Physical Exam Physical Exam PHYSICAL EXAM: CONSTITUTIONAL: Well developed, well nourished HEAD: normocephalic, atraumatic EENT: PERRL, EOMI. Conjunctivae normal color, sclerae non-icteric; moist mucous membranes. NECK: Supple, non-tender; no meningismus. LUNGS: There are mild scattered expiratory wheezes, breathing even and unlabored. Normal air movement. HEART: Regular rate and rhythm, no murmur CHEST: No deformity; there is mild tenderness to palpation to the anterior chest wall which reproduces the patient's pain. ABDOMEN: The abdomen is soft, and non-tender, no masses or bruits. EXTREM: Normal ROM; no deformity, no calf tenderness. Normal pulses palpable in all extremities. There is no pedal edema. SKIN: No rash; no diaphoresis NEURO: Alert; normal speech and cognition; CN's grossly intact; strength grossly intact without focal deficit. BACK: No CVA TTP. Current Patient Data Vital Signs Vital Signs Date Time Temp Pulse Resp B/P (MAP) Pulse Ox O2 Delivery O2 Flow Rate FiO2 05/07/19 13:38 104 168/99 (122) 97 Room Air 05/07/19 12:10 98.4 20 98.4 Lab Values Laboratory Tests Test 05/07/19 12:45 White Blood Count 7.9 x10^3/uL (4.0-11.0) Red Blood Count 4.30 x10^6/uL (3.50-5.40) Hemoglobin 12.7 g/dL (12.0-15.5) Hematocrit 37.5 % (36.0-47.0) Mean Corpuscular Volume 87 fL (79-100) Mean Corpuscular Hemoglobin 29 pg (25-35) Mean Corpuscular Hemoglobin Concent 34 g/dL (31-37) Red Cell Distribution Width 14.2 % (11.5-14.5) Platelet Count 376 x10^3/uL (140-400) Neutrophils (%) (Auto) 52 % (31-73) Lymphocytes (%) (Auto) 35 % (24-48) Monocytes (%) (Auto) 7 % (0-9) Eosinophils (%) (Auto) 5 % (0-3) H Basophils (%) (Auto) 1 % (0-3) Neutrophils # (Auto) 4.1 x10^3/uL (1.8-7.7) Lymphocytes # (Auto) 2.7 x10^3/uL (1.0-4.8) Monocytes # (Auto) 0.6 x10^3/uL (0.0-1.1) Eosinophils # (Auto) 0.4 x10^3/uL (0.0-0.7) Basophils # (Auto) 0.1 x10^3/uL (0.0-0.2) D-Dimer (Benita) 0.91 ug/mlFEU (0.00-0.50) H Sodium Level 140 mmol/L (136-145) Potassium Level 3.7 mmol/L (3.5-5.1) Chloride Level 106 mmol/L (98-107) Carbon Dioxide Level 24 mmol/L (21-32) Anion Gap 10 (6-14) Blood Urea Nitrogen 8 mg/dL (7-20) Creatinine 0.9 mg/dL (0.6-1.0) Estimated GFR (Cockcroft-Gault) 81.2 BUN/Creatinine Ratio 9 (6-20) Glucose Level 108 mg/dL (70-99) H Calcium Level 9.4 mg/dL (8.5-10.1) Total Bilirubin 0.3 mg/dL (0.2-1.0) Aspartate Amino Transferase (AST) 74 U/L (15-37) H Alanine Aminotransferase (ALT) 57 U/L (14-59) Alkaline Phosphatase 66 U/L (46-116) Troponin I Quantitative < 0.017 ng/mL (0.000-0.055) SK-Cwo-R-Type Natriuretic Peptide 157 pg/mL (0-124) H Total Protein 8.8 g/dL (6.4-8.2) H Albumin 3.3 g/dL (3.4-5.0) L Albumin/Globulin Ratio 0.6 (1.0-1.7) L Lipase 311 U/L (73-393) Urine Opiates Screen Neg (NEG) Urine Methadone Screen Neg (NEG) Urine Barbiturates Neg (NEG) Urine Phencyclidine Screen Neg (NEG) Urine Amphetamine/Methamphetamine Neg (NEG) Urine Benzodiazepines Screen Neg (NEG) Urine Cocaine Screen Neg (NEG) Urine Cannabinoids Screen Pos (NEG) Urine Ethyl Alcohol Neg (NEG) Laboratory Tests 05/07/19 12:45 Laboratory Tests 05/07/19 12:45 EKG EKG []Normal sinus rhythm at a rate of 96 bpm, normal axis, normal intervals. There are no acute ischemic ST/T changes. Nonspecific changes are present. Radiology/Procedures Radiology/Procedures PROCEDURE: PORTABLE CHEST 1V Single AP view of the chest. Comparison: 03/12/2019. Indication: Chest pain Findings: Stable severe degenerative change of the bilateral shoulders. May represent avascular necrosis. The heart is not enlarged. There is no pneumothorax or effusion. No air space or interstitial disease. Impression: 1. No acute cardiopulmonary process. [] Course & Med Decision Making Course & Med Decision Making Pertinent Labs and Imaging studies reviewed. (See chart for details) [] 2:05 PM:The patient's condition remains stable. I spoke with the hospitalist, who accepted the patient to the hospital for further evaluation and treatment. CT angiogram is currently pending. Dragon Disclaimer Dragon Disclaimer This electronic medical record was generated, in whole or in part, using a voice recognition dictation system. Departure Departure Impression: Primary Impression: Chest pain Disposition: ADMITTED INPATIENT Admitting Physician: TIFFANIE Condition: STABLE Referrals: Bernie ANTHONY MD (PCP) GANESH GARICA MD May 07, 2019 12:32
[2019-05-07 12:55] LABS: BASO # 0.1 x10^3/uL (0.0-0.2); BASO % 1 % (0-3); EOS # 0.4 x10^3/uL (0.0-0.7); EOS % 5 % (0-3); HEMATOCRIT 37.5 % (36.0-47.0); HEMOGLOBIN 12.7 g/dL (12.0-15.5); LYMPH # 2.7 x10^3/uL (1.0-4.8); LYMPH % 35 % (24-48); MEAN CORPUSCULAR HEMOGLOBIN 29 pg (25-35); MEAN CORPUSCULAR HGB CONC 34 g/dL (31-37); MEAN CORPUSCULAR VOLUME 87 fL (79-100); MONO # 0.6 x10^3/uL (0.0-1.1); MONO % 7 % (0-9); NEUT # 4.1 x10^3/uL (1.8-7.7); NEUT % 52 % (31-73); PLATELET COUNT 376 x10^3/uL (140-400); RED CELL DISTRIBUTION WIDTH 14.2 % (11.5-14.5); WHITE BLOOD COUNT 7.9 x10^3/uL (4.0-11.0)
[2019-05-07 13:14] LABS: BARBITURATES NEG (NEG); BENZODIAZEPINES NEG (NEG); CANNABINOIDS POS (NEG); COCAINE NEG (NEG); METHADONE NEG (NEG); OPIATES NEG (NEG); PHENCYCLIDINE NEG (NEG)
[2019-05-07 13:16] LABS: AMPHETAMINE/METHAMPHETAMINE NEG (NEG); CALCIUM 9.4 mg/dL (8.5-10.1); CREATININE 0.9 mg/dL (0.6-1.0); GFR 81.2; POTASSIUM 3.7 mmol/L (3.5-5.1)
[2019-05-07 13:22] LABS: ALBUMIN 3.3 g/dL (3.4-5.0); ALBUMIN/GLOBULIN RATIO 0.6 (1.0-1.7); TOTAL BILIRUBIN 0.3 mg/dL (0.2-1.0); TOTAL PROTEIN 8.8 g/dL (6.4-8.2)
--- NOTE | 2019-05-07 13:36 | EKG ---
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
--- NOTE | 2019-05-07 13:37 | RAD ---
Single AP view of the chest. Comparison: 03/12/2019. Indication: Chest pain Findings: Stable severe degenerative change of the bilateral shoulders. May represent avascular necrosis. The heart is not enlarged. There is no pneumothorax or effusion. No air space or interstitial disease. Impression: 1. No acute cardiopulmonary process. Electronically signed by: Lew Cervantes MD (05/07/2019 1:34 PM) [id number]
[2019-05-07] MEDS ORDERED: ALBUTEROL SULFATE 2.5 MG/3 ML NEBU. INH PRN (14:00)
[2019-05-07] MEDS ORDERED: ONDANSETRON ODT 4 MG TAB.RAPDIS. PO PRN (14:00)
[2019-05-07] MEDS ORDERED: CONTRAST GIVEN. MC PRN (14:00)
[2019-05-07] MEDS ORDERED: IOHEXOL 350 MG/ML 100 ML VIAL. IV ONE (14:00)
[2019-05-07] MEDS ORDERED: LIDO:MAALOX 1:1 20 ML SINGLE DOSE. PO PRN (14:15)
[2019-05-07] MEDS ORDERED: CALCIUM CARBONATE 500 MG TAB.CHEW PO PRN (14:15)
[2019-05-07] MEDS ORDERED: ACETAMINOPHEN/CODEINE 300/30MG TABLET. PO PRN (14:15)
[2019-05-07] MEDS ORDERED: NICOTINE 21MG PATCH. TD PRN (14:15)
[2019-05-07] MEDS ORDERED: ONDANSETRON PF 4 MG/2 ML VIAL. IVP PRN (14:15)
[2019-05-07] MEDS ORDERED: LABETALOL 20 MG/4 ML DISP.SYRIN. IVP PRN (14:15)
[2019-05-07] MEDS ORDERED: guaiFENesin DM 200MG/20MG 10 ML SYRUP PO PRN (14:15)
[2019-05-07] MEDS ORDERED: ZOLPIDEM 5 MG TABLET. PO PRN (14:15)
[2019-05-07] MEDS ORDERED: MORPHINE SULFATE 2 MG/ML VIAL. IV PRN (14:15)
--- NOTE | 2019-05-07 14:24 | PDOC1 ---
History and Physical Date of Admission Date of Admission DATE: 05/07/19 TIME: 14:18 Identification/Chief Complaint Chief Complaint upper abd pain x mos no relief with antacid by PCP Source Source: Caregiver, Chart review, Patient History of Present Illness History of Present Illness 48 AA female, comes in actually for epig pain for MOS< no relief despite antacid prescribed by PCP for mos, NO relief with GI cocktail in past, Still smokes, down to less than a pack a day, COPD on inhalers at home. CXR normal, Initial "chest pain" so cta ordered but ekg and labs ok, First set trop ok, No personal hx CAD. NOn DM, JUst HTN, lipids and COPD Admitted for a chest pain rule out but i think this could be more of GI in origin, SHe actually asks for some med for her epig area as i see her at ER. We shall just trend CE, await CTA - if both neg then no need for cards BUt i did order GI consult for the above reasons. seen at ER, full code PCP Dr Ferrer Past Medical History Cardiovascular: CHF, HTN, Hyperlipidemia Pulmonary: Asthma, COPD CENTRAL NERVOUS SYSTEM: Migraine GI: Diverticulosis, GERD Heme/Onc: Anemia NOS, Other Hepatobiliary: No pertinent hx Psych: Anxiety, Depression Musculoskeletal: low back pain Rheumatologic: Gout, Other Infectious disease: No pertinent hx Renal/: Chronic renal insuff Endocrine: Other Past Surgical History Past Surgical History: Appendectomy, Tubal Ligation, Hysterectomy, Other Family History Family History: Asthma, Diabetes, Hypertension Family History: Parent Social History Smoke: <1 pack per day ALCOHOL: social Drugs: Cocaine Current Medications Current Medications Current Medications Aspirin (Children'S Aspirin) 324 mg 1X ONCE PO Last administered on 05/07/19at 12:52; Start 05/07/19 at 12:30; Stop 05/07/19 at 12:31; Status DC Albuterol/ Ipratropium (Duoneb) 3 ml 1X ONCE NEB Last administered on 05/07/19at 12:37; Start 05/07/19 at 12:30; Stop 05/07/19 at 12:31; Status DC Multi-Ingredient Mouthwash/Gargle (Gi Cocktail) 20 ml 1X ONCE SWSW Last administered on 05/07/19at 12:52; Start 05/07/19 at 12:30; Stop 05/07/19 at 12:31; Status DC Iohexol (Omnipaque 350 Mg/ml) 100 ml 1X ONCE IV ; Start 05/07/19 at 14:00; Stop 05/07/19 at 14:01; Status DC Info (CONTRAST GIVEN -- Rx MONITORING) 1 each PRN DAILY PRN MC SEE COMMENTS; Start 05/07/19 at 14:00; Stop 05/09/19 at 13:59 Albuterol Sulfate (Ventolin Neb Soln) 2.5 mg PRN Q6HRS PRN INH SHORTNESS OF BREATH; Start 05/07/19 at 14:00; Status UNV Allopurinol (Zyloprim) 100 mg DAILY PO ; Start 05/08/19 at 09:00; Status UNV Amlodipine Besylate (Norvasc) 10 mg DAILY PO ; Start 05/08/19 at 09:00; Status UNV Aripiprazole (Abilify) 5 mg DAILY PO ; Start 05/08/19 at 09:00; Status UNV Atorvastatin Calcium (Lipitor) 40 mg QHS PO ; Start 05/07/19 at 21:00; Status UNV Benzonatate (Tessalon Perle) 100 mg [id number] PO ; Start 05/07/19 at 14:00; Status UNV Colchicine (Colcrys) 0.6 mg DAILY PO ; Start 05/08/19 at 09:00; Status UNV EZETIMIBE (Zetia) 10 mg DAILY PO ; Start 05/08/19 at 09:00; Status UNV Ferrous Sulfate (Feosol) 325 mg DAILY PO ; Start 05/08/19 at 09:00; Status UNV Fluticasone Propionate (Flonase) 2 spray DAILY NS ; Start 05/08/19 at 09:00; Status UNV Hydralazine HCl (Apresoline) 75 mg TID PO ; Start 05/07/19 at 14:00; Status UNV Acetaminophen/ Hydrocodone Bitart (Lortab 5/325) 1 tab PRN Q6HRS PRN PO PAIN; Start 05/07/19 at 14:00; Status UNV Albuterol/ Ipratropium (Duoneb) 3 ml RTQID NEB ; Start 05/07/19 at 16:00; Status UNV Ondansetron HCl (Zofran Odt) 4 mg PRN Q4HRS PRN PO NAUSEA; Start 05/07/19 at 14:00; Status UNV Non-Formulary Medication (Albuterol Sulfate (Ventolin Hfa Inhaler)) 2 puff Q4HRS INH ; Start 05/07/19 at 16:00; Status UNV Non-Formulary Medication (Budesonide/ Formoterol Fumarate (Symbicort 160-4.5 Mcg Inhaler)) 2 puff BID IH ; Start 05/07/19 at 21:00; Status UNV Non-Formulary Medication (Hydroxyzine Pamoate (Vistaril)) 25 mg PRN PRN PO cramping ; Start 05/07/19 at 14:00; Status UNV Non-Formulary Medication (Loratadine ) 1 tab DAILY PO ; Start 05/08/19 at 09:00; Status UNV Non-Formulary Medication (Losartan/ Hydrochlorothiazide (Losartan-Hctz 50-12.5 Mg Tab)) 1 tab DAILY PO ; Start 05/08/19 at 09:00; Status UNV Non-Formulary Medication (Meloxicam ) 15 mg DAILY PO ; Start 05/08/19 at 09:00; Status UNV Non-Formulary Medication (Metoprolol Succinate (Metoprolol Succinate ( Xl ))) 1 tab HS PO ; Start 05/07/19 at 21:00; Status UNV Non-Formulary Medication (Multivitamin (Multi-Day Vitamins)) 1 tab DAILY PO ; Start 05/08/19 at 09:00; Status UNV Non-Formulary Medication (Omeprazole ) 1 tab DAILY PO ; Start 05/08/19 at 09:00; Status UNV Non-Formulary Medication (Pantoprazole Sodium (Protonix)) 1 tab DAILY PO ; Start 05/08/19 at 09:00; Status UNV Non-Formulary Medication (Potassium Chloride ) 20 meq DAILY PO ; Start 05/08/19 at 09:00; Status UNV Non-Formulary Medication (Sumatriptan Succinate (Imitrex)) 50 mg ONCE PRN PO MIGRAINE HEADACHE; Start 05/07/19 at 14:00; Status UNV Labetalol HCl (Normodyne Iv Push) 10 mg PRN Q2HR PRN IVP HYPERTENSION; Start 05/07/19 at 14:15; Status UNV Nicotine (Nicoderm Cq 21mg) 1 patch PRN DAILY PRN TD SMOKING CESSATION; Start 05/07/19 at 14:15; Status UNV Zolpidem Tartrate (Ambien) 5 mg PRN QHS PRN PO INSOMNIA; Start 05/07/19 at 14:15; Status UNV Calcium Carbonate/ Glycine (Tums) 500 mg PRN AFTMEALHC PRN PO INDIGESTION; Start 05/07/19 at 14:15; Status UNV Guaifenesin (Robitussin Dm) 10 ml PRN Q6HRS PRN PO COUGH; Start 05/07/19 at 14:15; Status UNV Morphine Sulfate (Morphine Sulfate) 2 mg PRN Q2HR PRN IV PAIN; Start 05/07/19 at 14:15; Status UNV Ondansetron HCl (Zofran) 4 mg PRN Q6HRS PRN IVP NAUSEA/VOMITING; Start 05/07/19 at 14:15; Status UNV Acetaminophen/ Codeine Phosphate (Tylenol #3) 1 tab PRN Q6HRS PRN PO PAIN; Start 05/07/19 at 14:15; Status UNV Prednisone (Prednisone) 40 mg DAILY PO ; Start 05/08/19 at 09:00; Status UNV Multi-Ingredient Mouthwash/Gargle (Gi Cocktail) 20 ml PRN QID PRN PO CHEST PAIN; Start 05/07/19 at 14:15; Status UNV Pantoprazole Sodium (Protonix) 40 mg DAILYAC PO ; Start 05/08/19 at 07:30; Status UNV Active Scripts Active Protonix (Pantoprazole Sodium) 20 Mg Tablet.dr 1 Tab PO DAILY [place] 5-325 Tablet (Acetaminophen/Hydrocodone Bitart) 1 Each Tablet 1-2 Each PO PRN Q6HRS PRN as needed for pain Benzonatate 100 Mg Capsule 100 Mg PO [id number] 10 Days Hydralazine Hcl 25 Mg Tablet 75 Mg PO TID 30 Days Duoneb 0.5-3(2.5) Mg/3 Ml (Albuterol/Ipratropium) 3 Ml Ampul.neb 3 Ml NEB RTQID 28 Days Doxycycline Hyclate 100 Mg Tablet 100 Mg PO BID Prednisone (Prednisone) 10 Mg Tablet 10 Mg PO UD Take 5 tablets by mouth daily for 2 days, then take 4 tablets by mouth daily for 2 days, then take 3 tablets by mouth daily for 2 days, then take 2 tablets by mouth daily for 2 days, then take 1 tablets by mouth daily for 2 days, then stop. Proair Hfa Inhaler (Albuterol Sulfate) 8.5 Gm Hfa.aer.ad 1 Puff INH PRN Q6HRS PRN Omeprazole 20 Mg Tablet.dr 1 Tab PO DAILY Ventolin Hfa Inhaler (Albuterol Sulfate) 18 Gm Hfa.aer.ad 2 Puff INH Q4HRS Zetia (Ezetimibe) 10 Mg Tablet 10 Mg PO DAILY 90 Days Allopurinol 100 Mg Tablet 100 Mg PO DAILY 90 Days Atorvastatin Calcium 40 Mg Tablet 40 Mg PO QHS 30 Days Amlodipine Besylate 10 Mg Tablet 10 Mg PO DAILY 30 Days Reported Fluticasone Propionate Nasal [place] (Fluticasone Propionate) 16 Gm [place].susp 2 [place] NS DAILY Loratadine 10 Mg Tablet 1 Tab PO DAILY Aripiprazole 5 Mg Tablet 5 Mg PO DAILY Potassium Chloride 20 Meq Tablet.er 20 Meq PO DAILY Ondansetron Odt (Ondansetron) 4 Mg Tab.rapdis 1 Tab PO PRN Q4HRS PRN Metoprolol Succinate ( Xl ) (Metoprolol Succinate) 200 Mg Tab.er.24h 1 Tab PO HS Losartan-Hctz 50-12.5 Mg Tab (Losartan/Hydrochlorothiazide) 1 Each Tablet 1 Tab PO DAILY Symbicort 160-4.5 Mcg Inhaler (Budesonide/Formoterol Fumarate) 10.2 Gm Hfa.aer.ad 2 Puff IH BID Vistaril (Hydroxyzine Pamoate) 25 Mg Capsule 25 Mg PO PRN PRN Meloxicam 15 Mg Tablet 15 Mg PO DAILY Ferrous Sulfate 325 Mg Tablet 325 Mg PO DAILY Colcrys (Colchicine) 0.6 Mg Tablet 0.6 Mg PO DAILY Imitrex (Sumatriptan Succinate) 50 Mg Tablet 50 Mg PO ONCE PRN Multi-Day Vitamins (Multivitamin) 1 Each Tablet 1 Tab PO DAILY Allergies Allergies: Coded Allergies: lisinopril (Verified Allergy, Intermediate, COUGH, 01/07/19) I S O L A T I O N *CONTACT* (Verified Allergy, Unknown, 01/07/19) mrsa + ROS Review of System as per HPI, all else 14 pt neg Physical Exam General: Alert, Oriented X3, Cooperative, No acute distress HEENT: Atraumatic, PERRLA, EOMI Lungs: Clear to auscultation, Normal air movement Heart: S1S2, RRR, no thrills, no rubs, no gallops, no murmurs Cardiovascular: S1, S2 Breasts: Normal, Rt breast nml w/o mass, Lt breast nml w/o mass, Nipples normal Abdomen: Normal bowel sounds, Soft, Other (some tenderness epig area, unsure if she was just straled by my exam) Rectal Exam: not examined PELVIC: Nml ext genitalia Extremities: No clubbing, No cyanosis, No edema, Normal pulses, No tenderness/swelling Skin: No rashes, No breakdown, No significant lesion Neuro: Normal gait, Normal speech, Strength at 5/5 X4 ext, Normal tone, Sensation intact, Cranial nerves 3-12 NL, Reflexes 2+ Psych/Mental Status: Mental status NL, Mood NL Vitals Vitals Vital Signs Date Time Temp Pulse Resp B/P (MAP) Pulse Ox O2 Delivery O2 Flow Rate FiO2 05/07/19 12:37 98 Room Air 05/07/19 12:10 98.4 100 20 179/109 (132) 98.4 Labs Labs Laboratory Tests Test 05/07/19 12:45 White Blood Count 7.9 x10^3/uL (4.0-11.0) Red Blood Count 4.30 x10^6/uL (3.50-5.40) Hemoglobin 12.7 g/dL (12.0-15.5) Hematocrit 37.5 % (36.0-47.0) Mean Corpuscular Volume 87 fL (79-100) Mean Corpuscular Hemoglobin 29 pg (25-35) Mean Corpuscular Hemoglobin Concent 34 g/dL (31-37) Red Cell Distribution Width 14.2 % (11.5-14.5) Platelet Count 376 x10^3/uL (140-400) Neutrophils (%) (Auto) 52 % (31-73) Lymphocytes (%) (Auto) 35 % (24-48) Monocytes (%) (Auto) 7 % (0-9) Eosinophils (%) (Auto) 5 % (0-3) Basophils (%) (Auto) 1 % (0-3) Neutrophils # (Auto) 4.1 x10^3/uL (1.8-7.7) Lymphocytes # (Auto) 2.7 x10^3/uL (1.0-4.8) Monocytes # (Auto) 0.6 x10^3/uL (0.0-1.1) Eosinophils # (Auto) 0.4 x10^3/uL (0.0-0.7) Basophils # (Auto) 0.1 x10^3/uL (0.0-0.2) D-Dimer (Benita) 0.91 ug/mlFEU (0.00-0.50) Sodium Level 140 mmol/L (136-145) Potassium Level 3.7 mmol/L (3.5-5.1) Chloride Level 106 mmol/L (98-107) Carbon Dioxide Level 24 mmol/L (21-32) Anion Gap 10 (6-14) Blood Urea Nitrogen 8 mg/dL (7-20) Creatinine 0.9 mg/dL (0.6-1.0) Estimated GFR (Cockcroft-Gault) 81.2 BUN/Creatinine Ratio 9 (6-20) Glucose Level 108 mg/dL (70-99) Calcium Level 9.4 mg/dL (8.5-10.1) Total Bilirubin 0.3 mg/dL (0.2-1.0) Aspartate Amino Transf (AST/SGOT) 74 U/L (15-37) Alanine Aminotransferase (ALT/SGPT) 57 U/L (14-59) Alkaline Phosphatase 66 U/L (46-116) Troponin I Quantitative < 0.017 ng/mL (0.000-0.055) EO-Nmg-L-Type Natriuretic Peptide 157 pg/mL (0-124) Total Protein 8.8 g/dL (6.4-8.2) Albumin 3.3 g/dL (3.4-5.0) Albumin/Globulin Ratio 0.6 (1.0-1.7) Lipase 311 U/L (73-393) Urine Opiates Screen Neg (NEG) Urine Methadone Screen Neg (NEG) Urine Barbiturates Neg (NEG) Urine Phencyclidine Screen Neg (NEG) Urine Amphetamine/Methamphetamine Neg (NEG) Urine Benzodiazepines Screen Neg (NEG) Urine Cocaine Screen Neg (NEG) Urine Cannabinoids Screen Pos (NEG) Urine Ethyl Alcohol Neg (NEG) Laboratory Tests Test 11/5/19 12:45 White Blood Count 7.9 x10^3/uL (4.0-11.0) Red Blood Count 4.30 x10^6/uL (3.50-5.40) Hemoglobin 12.7 g/dL (12.0-15.5) Hematocrit 37.5 % (36.0-47.0) Mean Corpuscular Volume 87 fL (79-100) Mean Corpuscular Hemoglobin 29 pg (25-35) Mean Corpuscular Hemoglobin Concent 34 g/dL (31-37) Red Cell Distribution Width 14.2 % (11.5-14.5) Platelet Count 376 x10^3/uL (140-400) Neutrophils (%) (Auto) 52 % (31-73) Lymphocytes (%) (Auto) 35 % (24-48) Monocytes (%) (Auto) 7 % (0-9) Eosinophils (%) (Auto) 5 % (0-3) Basophils (%) (Auto) 1 % (0-3) Neutrophils # (Auto) 4.1 x10^3/uL (1.8-7.7) Lymphocytes # (Auto) 2.7 x10^3/uL (1.0-4.8) Monocytes # (Auto) 0.6 x10^3/uL (0.0-1.1) Eosinophils # (Auto) 0.4 x10^3/uL (0.0-0.7) Basophils # (Auto) 0.1 x10^3/uL (0.0-0.2) D-Dimer (Benita) 0.91 ug/mlFEU (0.00-0.50) Sodium Level 140 mmol/L (136-145) Potassium Level 3.7 mmol/L (3.5-5.1) Chloride Level 106 mmol/L (98-107) Carbon Dioxide Level 24 mmol/L (21-32) Anion Gap 10 (6-14) Blood Urea Nitrogen 8 mg/dL (7-20) Creatinine 0.9 mg/dL (0.6-1.0) Estimated GFR (Cockcroft-Gault) 81.2 BUN/Creatinine Ratio 9 (6-20) Glucose Level 108 mg/dL (70-99) Calcium Level 9.4 mg/dL (8.5-10.1) Total Bilirubin 0.3 mg/dL (0.2-1.0) Aspartate Amino Transf (AST/SGOT) 74 U/L (15-37) Alanine Aminotransferase (ALT/SGPT) 57 U/L (14-59) Alkaline Phosphatase 66 U/L (46-116) Troponin I Quantitative < 0.017 ng/mL (0.000-0.055) YQ-Wnb-F-Type Natriuretic Peptide 157 pg/mL (0-124) Total Protein 8.8 g/dL (6.4-8.2) Albumin 3.3 g/dL (3.4-5.0) Albumin/Globulin Ratio 0.6 (1.0-1.7) Lipase 311 U/L (73-393) Urine Opiates Screen Neg (NEG) Urine Methadone Screen Neg (NEG) Urine Barbiturates Neg (NEG) Urine Phencyclidine Screen Neg (NEG) Urine Amphetamine/Methamphetamine Neg (NEG) Urine Benzodiazepines Screen Neg (NEG) Urine Cocaine Screen Neg (NEG) Urine Cannabinoids Screen Pos (NEG) Urine Ethyl Alcohol Neg (NEG) VTE Prophylaxis Ordered VTE Prophylaxis Devices: Yes VTE Pharmacological Prophylaxi: Yes Assessment/Plan Assessment/Plan epig pain x mos, failed OP antacid Pleuritic CP Obesity BMI 30.4 HTN, Dyslipidemia, COPD,- all seems chronic stable - no wheezing on exam Smoker, COPD on inhalers, trying to quit, not much luck Accel HTN POA - clondine/labetolol prn, resume home bp meds PLAn: NOn tele bed ok Nicotine patch, resume inhalers and other home meds I counselled re her cigars Await CTA chest results Trend CE, if negative, no need for cards consult Consult GI re # 1 dx Tums, maalox etc what have u FUll code Seen at ER OBS likely MEDINA COVINGTON MD May 07, 2019 14:24
[2019-05-07] MEDS ORDERED: SUMAtriptan SUCCINATE 25 MG TABLET PO PRN (14:30)
[2019-05-07] MEDS ORDERED: hydrOXYzine 25 MG TABLET PO PRN (14:45)
[2019-05-07] MEDS ORDERED: hydroCHLOROthiazide 12.5 MG CAPSULE PO SCH (15:00)
--- NOTE | 2019-05-07 15:19 | RAD ---
Examination: CT angiogram of the chest HISTORY: History of shortness of breath, elevated d-dimer COMPARISON: 02/12/2019 TECHNIQUE: Axial CT angiography images were performed with IV contrast. Coronal and sagittal 3-D MIP reformats are performed Exposure: One or more of the following individualized dose reduction techniques were utilized for this examination: 1. Automated exposure control 2. Adjustment of the mA and/or kV according to patient size 3. Use of iterative reconstruction technique FINDINGS: 1.7 cm hypodensity identified in the left lobe of the thyroid gland The central airways are patent. No evidence for significant mediastinal lymphadenopathy is identified. The caliber of the aorta grossly appears unremarkable. The heart size grossly appears unremarkable. 4 mm nodule left apical lung. No evidence of filling defect identified in the main pulmonary artery and right and left main pulmonary arteries and the visualized lobar, segmental branches of the pulmonary arteries. There is diffuse decreased attenuation within the liver likely hepatic steatosis. The spleen, adrenals grossly appears unremarkable. Mild degenerative changes thoracic spine. IMPRESSION: 1. No evidence of pulmonary embolism. 2. Mild bibasilar lung airspace opacities likely atelectasis or infiltrates. 3. 4 mm nodule left apical lungs unchanged. 4. Hepatic steatosis. 5. 1.7 cm hypodense nodule identified in the left lobe of the thyroid gland. Recommend follow-up ultrasound thyroid for further evaluation. Electronically signed by: Shimon Lujan MD (05/07/2019 3:16 PM) [id number]
--- NOTE | 2019-05-07 15:50 | PDOC2 ---
GI CONSULT Reason For Consult: epigastric pain not better despite months of antacid HPI: HPI: 48 y/o female in ER w/ stabbing left-sided chest pain since 4:00 a.m. associated w/ shortness of breath that has resolved. Has chronic epigastric pain - just a pain that's there every day. Doesn't keep her awake, no change with eating. No n/v. Appetite "comes and goes," weight is "up and down." Denies reflux, early satiety, bloating, and dysphagia. No diarrhea, hematochezia, or melena. Last stooled 4 days ago - taking milk to relieve constipation. Says Dr. Ferrer have her something that would "make her stools hard." We reviewed her med list which includes Protonix and iron - she is taking neith er. Omeprazole also sounds familiar but doesn't think she takes this either. Doesn't take anything for GERD because she says she doesn't have it. Med list also include colchicine and Mobic - she says she does take Mobic. More than one EGD w/ Dr. Smith - most recently in 12/2018 for epigastric pain which showed esophageal webs (likely scarring from past severe esophagitis), ps eudodiverticulosis of esophagus, and GERD. Previously had EGD in 03/2017 w/ pseudodiverticulosis and web, ulcerative esophagitis (no Irwin's on biopsy) and tiny pre-pyloric ulcer (no H. pylori). US in 03/2019 showed hepatic steatosis and HIDA in 12/2018 showed patent cystic duct and normal GB EF (79%). No previous colonoscopy. No pancreas history. PMH: PMH: HTN, HLD, asthma, COPD, pneumonia, migraines, depression, OA, ?lupus, allergic rhinitis, DM tubal ligation, appendectomy w/ LINDA, hysterectomy/BSO FH: Family History: No pertinent hx Social History: Smoke: <1 pack per day ALCOHOL: none (ethyl alcohol 170 in 2018) Drugs: Cocaine (neg this admission), Marijuana ROS: GEN: Denies fevers, chills, sweats HEENT: Denies blurred vision, sore throat CV: +CP RESP: +SOA GI: Per HPI : Denies hematuria, dysuria ENDO: +fluctuating weight NEURO: Denies confusion, dizziness MSK: Denies weakness, joint pain/swelling SKIN: Denies jaundice, pruritus Vitals: Vitals: Vital Signs Date Time Temp Pulse Resp B/P (MAP) Pulse Ox O2 Delivery O2 Flow Rate FiO2 05/07/19 15:26 98 05/07/19 12:37 Room Air 05/07/19 12:10 98.4 100 20 179/109 (132) 98.4 Labs: Labs: Laboratory Tests Test 05/07/19 12:45 White Blood Count 7.9 x10^3/uL (4.0-11.0) Red Blood Count 4.30 x10^6/uL (3.50-5.40) Hemoglobin 12.7 g/dL (12.0-15.5) Hematocrit 37.5 % (36.0-47.0) Mean Corpuscular Volume 87 fL (79-100) Mean Corpuscular Hemoglobin 29 pg (25-35) Mean Corpuscular Hemoglobin Concent 34 g/dL (31-37) Red Cell Distribution Width 14.2 % (11.5-14.5) Platelet Count 376 x10^3/uL (140-400) Neutrophils (%) (Auto) 52 % (31-73) Lymphocytes (%) (Auto) 35 % (24-48) Monocytes (%) (Auto) 7 % (0-9) Eosinophils (%) (Auto) 5 % (0-3) Basophils (%) (Auto) 1 % (0-3) Neutrophils # (Auto) 4.1 x10^3/uL (1.8-7.7) Lymphocytes # (Auto) 2.7 x10^3/uL (1.0-4.8) Monocytes # (Auto) 0.6 x10^3/uL (0.0-1.1) Eosinophils # (Auto) 0.4 x10^3/uL (0.0-0.7) Basophils # (Auto) 0.1 x10^3/uL (0.0-0.2) D-Dimer (Benita) 0.91 ug/mlFEU (0.00-0.50) Sodium Level 140 mmol/L (136-145) Potassium Level 3.7 mmol/L (3.5-5.1) Chloride Level 106 mmol/L (98-107) Carbon Dioxide Level 24 mmol/L (21-32) Anion Gap 10 (6-14) Blood Urea Nitrogen 8 mg/dL (7-20) Creatinine 0.9 mg/dL (0.6-1.0) Estimated GFR (Cockcroft-Gault) 81.2 BUN/Creatinine Ratio 9 (6-20) Glucose Level 108 mg/dL (70-99) Calcium Level 9.4 mg/dL (8.5-10.1) Total Bilirubin 0.3 mg/dL (0.2-1.0) Aspartate Amino Transf (AST/SGOT) 74 U/L (15-37) Alanine Aminotransferase (ALT/SGPT) 57 U/L (14-59) Alkaline Phosphatase 66 U/L (46-116) Troponin I Quantitative < 0.017 ng/mL (0.000-0.055) YI-Abb-N-Type Natriuretic Peptide 157 pg/mL (0-124) Total Protein 8.8 g/dL (6.4-8.2) Albumin 3.3 g/dL (3.4-5.0) Albumin/Globulin Ratio 0.6 (1.0-1.7) Lipase 311 U/L (73-393) Urine Opiates Screen Neg (NEG) Urine Methadone Screen Neg (NEG) Urine Barbiturates Neg (NEG) Urine Phencyclidine Screen Neg (NEG) Urine Amphetamine/Methamphetamine Neg (NEG) Urine Benzodiazepines Screen Neg (NEG) Urine Cocaine Screen Neg (NEG) Urine Cannabinoids Screen Pos (NEG) Urine Ethyl Alcohol Neg (NEG) Allergies: Coded Allergies: lisinopril (Verified Allergy, Intermediate, COUGH, 01/07/19) I S O L A T I O N *CONTACT* (Verified Allergy, Unknown, 01/07/19) mrsa + Medications: Current Medications Medications (Trade) Dose Ordered Sig/Nona Route PRN Reason Start Time Stop Time Status Last Admin Dose Admin Aspirin (Children'S Aspirin) 324 mg 1X ONCE PO 05/07/19 12:30 05/07/19 12:31 DC 05/07/19 12:52 Albuterol/ Ipratropium (Duoneb) 3 ml 1X ONCE NEB 05/07/19 12:30 05/07/19 12:31 DC 05/07/19 12:37 Multi-Ingredient Mouthwash/Gargle (Gi Cocktail) 20 ml 1X ONCE SWSW 05/07/19 12:30 11/5/19 12:31 DC 05/07/19 12:52 Iohexol (Omnipaque 350 Mg/ml) 100 ml 1X ONCE IV 05/07/19 14:00 05/07/19 14:01 DC 05/07/19 14:00 Morphine Sulfate (Morphine Sulfate) 2 mg PRN Q2HR PRN IV MODERATE PAIN 05/07/19 14:15 05/07/19 15:26 Imaging: Imaging: Chest CTA IMPRESSION: 1. No evidence of pulmonary embolism. 2. Mild bibasilar lung airspace opacities likely atelectasis or infiltrates. 3. 4 mm nodule left apical lungs unchanged. 4. Hepatic steatosis. 5. 1.7 cm hypodense nodule identified in the left lobe of the thyroid gland. Recommend follow-up ultrasound thyroid for further evaluation. PE: GEN: NAD HEENT: Atraumatic, PERRL LUNGS: CTAB HEART: RRR ABD: NABS, S/ND/NT EXTREMITY: No edema SKIN: No rashes, no jaundice NEURO/PSYCH: A & O 3 A/P: A/P: Left-sided chest pain, SOA Chronic epigastric pain GERD, pseudodiverticulosis of esophagus CRC screen - average risk Constipation Hepatic steatosis +marijuana -- She doesn't know what meds she takes and says she didn't know she had GERD - wonder about PPI compliance - needs to take chronically. Will address constipation. ALEXANDER GARDNER May 07, 2019 15:50
[2019-05-07] MEDS ORDERED: BISACODYL 5 MG TABLET.DR. PO ONE (16:00)
[2019-05-07] MEDS ORDERED: ALBUTEROL SULFATE 2.5 MG/3 ML NEBU. NEB SCH (16:00)
[2019-05-07] MEDS ORDERED: POLYETHYLENE GLYCOL 3350 17 GM PACKET. PO PRN (16:00)
[2019-05-07] MEDS: POTASSIUM CHLORIDE 20 MEQ TABLET.ER. PO SCH (16:00)
[2019-05-07] MEDS: IPRATRPIUM/ALBUTEROL 0.5/2.5MG 3 ML NEBU. NEB SCH ×2 (16:39→21:15)
[2019-05-07] MEDS ORDERED: FLU VAX QS 2019-20 (36MOS+)/PF 0.5 ML SYRINGE. VAX IM ONE (17:15)
[2019-05-07] MEDS: MELOXICAM 7.5 MG TABLET PO SCH (17:57)
[2019-05-07] MEDS: predniSONE 20 MG TABLET PO SCH (17:58)
[2019-05-07] MEDS: BENZONATATE 100 MG CAPSULE. PO SCH ×2 (17:58→21:30)
[2019-05-07] MEDS: COLCHICINE 0.6 MG TABLET PO SCH (17:58)
[2019-05-07] MEDS: amLODIPine BESYLATE 10 MG TABLET PO SCH (17:58)
[2019-05-07] MEDS: CETIRIZINE HCL 10 MG TABLET. PO SCH (17:59)
[2019-05-07] MEDS: ALLOPURINOL 100 MG TABLET. PO SCH (17:59)
[2019-05-07] MEDS: hydrALAZINE 25 MG TABLET PO SCH ×2 (17:59→21:30)
[2019-05-07] MEDS: PANTOPRAZOLE 40 MG TABLET.DR. PO SCH (17:59)
[2019-05-07] MEDS: EZETIMIBE 10 MG TABLET. PO SCH (17:59)
[2019-05-07] MEDS: ARIPiprazole 5 MG TABLET PO SCH (17:59)
[2019-05-07] MEDS: FERROUS SULFATE 325 MG TABLET. PO SCH (17:59)
[2019-05-07] MEDS: HYDROcodone/APAP 5/325MG 1 TAB TABLET PO PRN (18:14)
[2019-05-07 19:44] VITALS: BP 167/94
[2019-05-07] MEDS ORDERED: ATORVASTATIN CALCIUM 40 MG TABLET. PO SCH (21:00)
[2019-05-07] MEDS ORDERED: METOPROLOL SUCC 24HR ER 100 MG TAB.ER.24H. PO SCH (21:00)
[2019-05-07] MEDS: BUDESONIDE 0.5 MG/2 ML NEBU. NEB SCH (21:15)
[2019-05-07 23:34] VITALS: BP 146/83
[2019-05-08] MEDS: HYDROcodone/APAP 5/325MG 1 TAB TABLET PO PRN ×2 (02:02→10:28)
[2019-05-08 03:20] VITALS: BP 145/84
[2019-05-08 04:09] VITALS: BP 145/84
[2019-05-08 07:57] VITALS: BP 147/98
[2019-05-08] MEDS: FERROUS SULFATE 325 MG TABLET. PO SCH (08:00)
[2019-05-08] MEDS: IPRATRPIUM/ALBUTEROL 0.5/2.5MG 3 ML NEBU. NEB SCH ×2 (08:10→12:00)
[2019-05-08] MEDS: BUDESONIDE 0.5 MG/2 ML NEBU. NEB SCH (08:10)
[2019-05-08] MEDS ORDERED: NON FORMULARY ITEM (Omeprazole 1 TAB) PO SCH (09:00)
[2019-05-08] MEDS ORDERED: hydroCHLOROthiazide 12.5 MG CAPSULE PO SCH (09:00)
[2019-05-08] MEDS ORDERED: LOSARTAN POTASSIUM 50 MG TABLET. PO SCH ×2 (09:00)
[2019-05-08] MEDS ORDERED: MULTIVITAMIN with MINERAL TABLET. PO SCH (09:00)
[2019-05-08] MEDS ORDERED: NON FORMULARY ITEM (Pantoprazole Sodium (Protonix) 1 TAB) PO SCH (09:00)
[2019-05-08] MEDS ORDERED: FLUTICASONE 50MCG/NASAL SPRAY 16GM BOTTLE. NS SCH (09:00)
[2019-05-08] MEDS ORDERED: POLYETHYLENE GLYCOL 3350 17 GM PACKET. PO SCH (09:00)
--- NOTE | 2019-05-08 09:00 | NUR ---
IP: Pt has a hx of + mrsa screens since 2017 with most recent on 11/05/18. Pt to be in contact precautions until there are 2 negative screens 7 days apart. Recommend a mrsa screen then initiation of Nozin/CHG decolonization.
--- NOTE | 2019-05-08 09:20 | PDOC2 ---
CARDIAC CONSULT DATE OF CONSULT Date of Consult DATE: 05/08/19 TIME: 08:36 REASON FOR CONSULT Reason for Consult: Chest pain REFERRING PHYSICIAN Referring Physician: Qing SOURCE Source: Chart review, Patient HISTORY OF PRESENT ILLNESS HISTORY OF PRESENT ILLNESS This is a pleasant 48 yo female admitted for complains of epigastric pain. This is nonradiating. Reports that she has been having this in the last 2 months. She actually went to her PCP last month and her zantac and carafate was discontinued and was started on protonix. Yesterday her sharp mainly epigastric pain got so bad that she decided to come to ED. No exertional chest tighness nor significant SOA with exertion. No changes to her activity tolerance. Her last stress test was 2016. 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 No falls or injury. No intractable coughing. Denies any additional NSAIDs to her meloxicam but continues to smoke tobacco. No palpitations, frequent dizziness, n/v. No fever or chills. PAST MEDICAL HISTORY Cardiovascular: CHF (diastolic), HTN, Hyperlipidemia Pulmonary: Asthma, COPD, Pneumonia CENTRAL NERVOUS SYSTEM: Migraine GI: GERD, Other (pseudodiverticulosis to esophagus) Heme/Onc: Anemia NOS, Other (Lupus) Hepatobiliary: Other (hepatic steatosis) Psych: Anxiety Musculoskeletal: Osteoarthritis Rheumatologic: Gout (hyperuricemia) Infectious disease: No pertinent hx ENT: Sincusitis, Allergic Rhinitis Renal/: Chronic renal insuff (2) Endocrine: Diabetes (2), Other (thyroid nodule) Dermatology: No pertinent hx PAST SURGICAL HISTORY Past Surgical History: Appendectomy, Hysterectomy, Other (ling surgery; right breast lumpectomy) FAMILY HISTORY Family History: Diabetes (mother), Hypertension SOCIAL HISTORY Smoke: <1 pack per day ALCOHOL: none Drugs: Marijuana Lives: with Family CURRENT MEDICATIONS CURRENT MEDICATIONS Current Medications Medications (Trade) Dose Ordered Sig/Nona Route PRN Reason Start Time Stop Time Status Last Admin Dose Admin Aspirin (Children'S Aspirin) 324 mg 1X ONCE PO 05/07/19 12:30 05/07/19 12:31 DC 05/07/19 12:52 Albuterol/ Ipratropium (Duoneb) 3 ml 1X ONCE NEB 05/07/19 12:30 05/07/19 12:31 DC 05/07/19 12:37 Multi-Ingredient Mouthwash/Gargle (Gi Cocktail) 20 ml 1X ONCE SWSW 05/07/19 12:30 05/07/19 12:31 DC 05/07/19 12:52 Iohexol (Omnipaque 350 Mg/ml) 100 ml 1X ONCE IV 05/07/19 14:00 05/07/19 14:01 DC 05/07/19 14:00 Allopurinol (Zyloprim) 100 mg DAILY PO 05/07/19 16:00 05/07/19 17:59 Amlodipine Besylate (Norvasc) 10 mg DAILY PO 05/07/19 16:00 05/07/19 17:58 Aripiprazole (Abilify) 5 mg DAILY PO 05/07/19 16:00 05/07/19 17:59 Benzonatate (Tessalon Perle) 100 mg [id number] PO 05/07/19 15:30 05/07/19 21:30 Colchicine (Colcrys) 0.6 mg DAILY PO 05/07/19 16:00 05/07/19 17:58 EZETIMIBE (Zetia) 10 mg DAILY PO 05/07/19 16:00 05/07/19 17:59 Ferrous Sulfate (Feosol) 325 mg [id number] PO 05/07/19 16:00 05/07/19 17:59 Hydralazine HCl (Apresoline) 75 mg TID PO 05/07/19 15:30 05/07/19 21:30 Acetaminophen/ Hydrocodone Bitart (Lortab 5/325) 1 tab PRN Q6HRS PRN PO SEVERE PAIN 05/07/19 14:00 05/08/19 02:02 Albuterol/ Ipratropium (Duoneb) 3 ml RTQID NEB 05/07/19 16:00 05/08/19 08:10 Budesonide (Pulmicort) 0.5 mg RTBID NEB 05/07/19 20:00 05/08/19 08:10 Cetirizine HCl (ZyrTEC) 10 mg DAILY PO 05/07/19 16:00 05/07/19 17:59 Meloxicam (Mobic) 15 mg DAILY PO 05/07/19 16:00 05/07/19 17:57 Metoprolol Succinate (Toprol Xl) 200 mg QHS PO 05/07/19 21:00 05/07/19 21:29 Morphine Sulfate (Morphine Sulfate) 2 mg PRN Q2HR PRN IV MODERATE PAIN 05/07/19 14:15 05/07/19 15:26 Prednisone (Prednisone) 40 mg DAILY PO 05/07/19 16:00 05/07/19 17:58 Pantoprazole Sodium (Protonix) 40 mg DAILYAC PO 05/07/19 16:30 05/07/19 17:59 Bisacodyl (Dulcolax Tab) 10 mg 1X ONCE PO 05/07/19 16:00 05/07/19 16:01 DC 05/07/19 17:59 ALLERGIES ALLERGIES: Coded Allergies: lisinopril (Verified Allergy, Intermediate, COUGH, 01/07/19) I S O L A T I O N *CONTACT* (Verified Allergy, Unknown, 01/07/19) mrsa + ROS Review of System 14 point ROS evaluated with pertinent positives noted per HPI PHYSICAL EXAM General: Alert, Oriented X3, Cooperative, No acute distress HEENT: Atraumatic, Mucous membr. moist/pink Lungs: Clear to auscultation, Normal air movement Heart: Regular rate (SR), Normal S1, Normal S2, No murmurs Abdomen: Soft, No tenderness Extremities: No cyanosis, No edema Skin: No breakdown, No significant lesion Neuro: Normal speech, Sensation intact Psych/Mental Status: Mental status NL, Mood NL MUSCULOSKELETAL: Osteoarthritic changes both hands VITALS/I&O VITALS/I&O: Vital Signs Date Time Temp Pulse Resp B/P (MAP) Pulse Ox O2 Delivery O2 Flow Rate FiO2 05/08/19 08:13 98 Room Air 05/08/19 07:57 97.8 87 18 147/98 (114) 97.8 I & O 05/07/19 05/07/19 05/08/19 15:00 23:00 07:00 Intake Total 700 ml 650 ml Balance 700 ml 650 ml LABS Lab: Laboratory Tests Test 05/07/19 12:45 05/07/19 16:45 05/07/19 16:56 05/07/19 19:50 White Blood Count 7.9 x10^3/uL (4.0-11.0) Red Blood Count 4.30 x10^6/uL (3.50-5.40) Hemoglobin 12.7 g/dL (12.0-15.5) Hematocrit 37.5 % (36.0-47.0) Mean Corpuscular Volume 87 fL (79-100) Mean Corpuscular Hemoglobin 29 pg (25-35) Mean Corpuscular Hemoglobin Concent 34 g/dL (31-37) Red Cell Distribution Width 14.2 % (11.5-14.5) Platelet Count 376 x10^3/uL (140-400) Neutrophils (%) (Auto) 52 % (31-73) Lymphocytes (%) (Auto) 35 % (24-48) Monocytes (%) (Auto) 7 % (0-9) Eosinophils (%) (Auto) 5 % (0-3) H Basophils (%) (Auto) 1 % (0-3) Neutrophils # (Auto) 4.1 x10^3/uL (1.8-7.7) Lymphocytes # (Auto) 2.7 x10^3/uL (1.0-4.8) Monocytes # (Auto) 0.6 x10^3/uL (0.0-1.1) Eosinophils # (Auto) 0.4 x10^3/uL (0.0-0.7) Basophils # (Auto) 0.1 x10^3/uL (0.0-0.2) D-Dimer (Benita) 0.91 ug/mlFEU (0.00-0.50) H Sodium Level 140 mmol/L (136-145) Potassium Level 3.7 mmol/L (3.5-5.1) Chloride Level 106 mmol/L (98-107) Carbon Dioxide Level 24 mmol/L (21-32) Anion Gap 10 (6-14) Blood Urea Nitrogen 8 mg/dL (7-20) Creatinine 0.9 mg/dL (0.6-1.0) Estimated GFR (Cockcroft-Gault) 81.2 BUN/Creatinine Ratio 9 (6-20) Glucose Level 108 mg/dL (70-99) H Calcium Level 9.4 mg/dL (8.5-10.1) Total Bilirubin 0.3 mg/dL (0.2-1.0) Aspartate Amino Transferase (AST) 74 U/L (15-37) H Alanine Aminotransferase (ALT) 57 U/L (14-59) Alkaline Phosphatase 66 U/L (46-116) Troponin I Quantitative < 0.017 ng/mL (0.000-0.055) < 0.017 ng/mL (0.000-0.055) < 0.017 ng/mL (0.000-0.055) LX-Igi-V-Type Natriuretic Peptide 157 pg/mL (0-124) H Total Protein 8.8 g/dL (6.4-8.2) H Albumin 3.3 g/dL (3.4-5.0) L Albumin/Globulin Ratio 0.6 (1.0-1.7) L Lipase 311 U/L (73-393) Cortisol PM Sample 4.2 ug/dL (3.1-16.7) Urine Opiates Screen Neg (NEG) Urine Methadone Screen Neg (NEG) Urine Barbiturates Neg (NEG) Urine Phencyclidine Screen Neg (NEG) Urine Amphetamine/Methamphetamine Neg (NEG) Urine Benzodiazepines Screen Neg (NEG) Urine Cocaine Screen Neg (NEG) Urine Cannabinoids Screen Pos (NEG) Urine Ethyl Alcohol Neg (NEG) Glucose (Fingerstick) 88 mg/dL (70-99) Test 05/07/19 21:08 05/08/19 07:13 Glucose (Fingerstick) 161 mg/dL (70-99) H 128 mg/dL (70-99) H Laboratory Tests 05/07/19 12:45 Laboratory Tests 05/07/19 12:45 ECHOCARDIOGRAM ECHOCARDIOGRAM <Conclusion> The left ventricle is normal size. The left ventricular systolic function is normal and the ejection fraction is within normal range. The Ejection Fraction is 60-65%. There is mild concentric left ventricular hypertrophy. There is no significant aortic valvular stenosis. Doppler and Color Flow revealed no significant aortic regurgitation. Doppler and Color-flow revealed trace mitral regurgitation. Doppler and Color Flow revealed trace tricuspid regurgitation. DATE: 06/16/18 1126 ASSESSMENT/PLAN ASSESSMENT/PLAN 1. Atypical CP: more of epigastric pain. trop EKG SR no acute changes. suspect GI. Doubt ACS 2. COPD with continued tobaccoism 3. DM2: 03/25 A1C 6.8. on home metformin 4. HTN: labile 5. HLP: statin 6. Hyperuricemia 7. Hepatic steatosis 8. Obesity 9. Hx of thyroid nodule 10. Hx of GERD and esophageal pseudodiverticulum 11. Hx of lupus Recommendations 1. Restart home BP regimen and secondary prevention measures. Encouraged HBPM 2. Continue PPI. Follow GI input. 3. Lipids, TSH. 4. Smoking, marijuana cessation 5. Follow up in office on June 06 at 9:30AM with outpt TTE prior to visit. 6. I did discussed with her about ACS. If her symptoms persist despite GI optimization then would consider outpt stress test given her significnat cardiac risk factors. 7. Dietitian consult ARCADIO CULVER APRN May 08, 2019 09:20
[2019-05-08] MEDS: POTASSIUM CHLORIDE 20 MEQ TABLET.ER. PO SCH (09:24)
[2019-05-08] MEDS: CETIRIZINE HCL 10 MG TABLET. PO SCH (09:24)
[2019-05-08] MEDS: ARIPiprazole 5 MG TABLET PO SCH (09:24)
[2019-05-08] MEDS: EZETIMIBE 10 MG TABLET. PO SCH (09:24)
[2019-05-08] MEDS: BENZONATATE 100 MG CAPSULE. PO SCH (09:25)
[2019-05-08] MEDS: PANTOPRAZOLE 40 MG TABLET.DR. PO SCH (09:25)
[2019-05-08] MEDS: hydrALAZINE 25 MG TABLET PO SCH (09:25)
[2019-05-08] MEDS: COLCHICINE 0.6 MG TABLET PO SCH (09:26)
[2019-05-08] MEDS: ALLOPURINOL 100 MG TABLET. PO SCH (09:26)
[2019-05-08] MEDS: amLODIPine BESYLATE 10 MG TABLET PO SCH (09:26)
[2019-05-08] MEDS: predniSONE 20 MG TABLET PO SCH (09:26)
[2019-05-08] MEDS: MELOXICAM 7.5 MG TABLET PO SCH (09:27)
[2019-05-08 10:01] LABS: CHOLESTEROL/HDL RATIO 6.1
[2019-05-08 11:19] VITALS: BP 151/99
[2019-05-08] MEDS ORDERED: PANT20TA2 PO (11:29)
[2019-05-08] MEDS ORDERED: POLY17PO28 PO (11:29)
--- NOTE | 2019-05-08 11:49 | PDOC ---
Subjective: Subjective: Feels better, wants to go home. Chest pain resolved. Still has epigastric discomfort - same as always. Tolerating diet. Hasn't stooled but took Miralax. Objective: Objective: D/w Eduar - recently stopped H2 nathan and Carafate and was started on PPI per records. Vital Signs: Vital Signs Date Time Temp Pulse Resp B/P (MAP) Pulse Ox O2 Delivery O2 Flow Rate FiO2 05/08/19 11: 97.4 81 18 151/99 (116) 99 Room Air 97.4 Labs: Laboratory Tests Test 05/07/19 16:56 05/07/19 21:08 05/08/19 07:13 05/08/19 11:07 Glucose (Fingerstick) 88 mg/dL (70-99) 161 mg/dL (70-99) 128 mg/dL (70-99) 153 mg/dL (70-99) PE: GEN: NAD LUNGS: CTAB HEART: RRR ABD: NABS, S/ND/NT NEURO/PSYCH: A & O 3 A/P: Severe GERD w/ chronic epigastric pain -- We discussed pantoprazole again - she didn't seem to remember that we talked about it yesterday. DC per primary on PPI QD. ALEXANDER GARDNER May 08, 2019 11:49
--- NOTE | 2019-05-08 12:30 | NUR ---
Discharge Note: CALDERON YAP [address] Discharge instructions and discharge home medications reviewed with Patient and a copy given. All questions have been answered and understanding verbalized. The following instructions and handouts were given: patient visit report, medication information, education Discontinued lines and drains: peripheral IV, tip intact. Patient discharged to home with self care via private vehicle. Patient left unit awake, in stable condition with all personal belongings.
--- NOTE | 2019-05-08 15:54 | NUR ---
Pt requested flu vax at dc. Pt left unit prior to getting inj.
== END 2019-05-08 12:25 | disposition home or self-care (01) ==
LOC: ER 12:01 → 6 SOUTH 13:50
PROVIDERS: ADMIT Internal Medicine; ATTEND Internal Medicine
DX: R10.13 Epigastric pain (principal); R07.81 Pleurodynia; E66.9 Obesity, unspecified; Z68.30 Body mass index [BMI] 30.0-30.9, adult; I13.0 Hypertensive heart and chronic kidney disease with heart failure and stage 1 through stage 4 chronic kidney disease, or unspecified chronic kidney disease; E78.5 Hyperlipidemia, unspecified; J44.0 Chronic obstructive pulmonary disease with (acute) lower respiratory infection; I50.32 Chronic diastolic (congestive) heart failure; G43.909 Migraine, unspecified, not intractable, without status migrainosus; K21.0 Gastro-esophageal reflux disease with esophagitis; F17.210 Nicotine dependence, cigarettes, uncomplicated; G89.29 Other chronic pain; F32.9 Major depressive disorder, single episode, unspecified; M54.5 Low back pain; N18.9 Chronic kidney disease, unspecified
CPT/HCPCS: 36415; 71045; 71275; 80053; 80061; 80307; 82533; 82962; 83690; 83880; 84443; 84484; 85025; 85379; 93005; 94640; 96374; 96375; 99284; G0378; J2270; J7512; J7620; J7626; Q9967; G0379

== ENCOUNTER → 2019-05-18 | Outpatient (CLI) | payer MEDICAID ==
[2019-05-08 11:19] VITALS: BP 151/99
[~2019-05-18] MED LIST changes: +POLY17PO28 PO
--- NOTE | 2019-05-20 12:35 | RAD ---
DATE: 05/18/2019. EXAM: DIGITAL SCREEN BILAT W/CAD. HISTORY: Routine mammographic screening. COMPARISON: 08/11/2017. This study was interpreted with the benefit of Computerized Aided Detection (CAD). FINDINGS: Breast Density: SCATTERED The breast parenchyma shows scattered fibroglandular densities. Breast parenchyma level B.. There are no suspicious masses, microcalcifications or architectural distortion. The parenchymal pattern is stable. Scattered calcifications are benign. BI-RADS CATEGORY: 2 BENIGN FINDING(S). RECOMMENDED FOLLOW-UP: 12M 12 MONTH FOLLOW-UP. PQRS compliance statement: Patient information was entered into a reminder system with a target due date 05/18/2020 for the next mammogram. Mammography is a sensitive method for finding small breast cancers, but it does not detect them all and is not a substitute for careful clinical examination. A negative mammogram does not negate a clinically suspicious finding and should not result in delay in biopsying a clinically suspicious abnormality. "Our facility is accredited by the [employer] Mammography Program."
== END | disposition home or self-care (01) ==
LOC: MAMMO 09:42
PROVIDERS: ATTEND Family Medicine
DX: Z12.31 Encounter for screening mammogram for malignant neoplasm of breast (principal); N64.89 Other specified disorders of breast
CPT/HCPCS: 77067

== ENCOUNTER → 2019-05-22 | Outpatient (CLI) | payer MEDICAID ==
[2019-05-08 11:19] VITALS: BP 151/99
[2019-05-22 11:34] LABS: BASO # 0.1 x10^3/uL (0.0-0.2); BASO % 1 % (0-3); EOS # 0.3 x10^3/uL (0.0-0.7); EOS % 3 % (0-3); HEMATOCRIT 37.4 % (36.0-47.0); HEMOGLOBIN 12.6 g/dL (12.0-15.5); LYMPH # 2.3 x10^3/uL (1.0-4.8); LYMPH % 23 % (24-48); MEAN CORPUSCULAR HEMOGLOBIN 29 pg (25-35); MEAN CORPUSCULAR HGB CONC 34 g/dL (31-37); MEAN CORPUSCULAR VOLUME 86 fL (79-100); MONO # 0.6 x10^3/uL (0.0-1.1); MONO % 6 % (0-9); NEUT % 68 % (31-73); PLATELET COUNT 393 x10^3/uL (140-400); RED BLOOD COUNT 4.35 x10^6/uL (3.50-5.40); RED CELL DISTRIBUTION WIDTH 14.4 % (11.5-14.5); WHITE BLOOD COUNT 10.3 x10^3/uL (4.0-11.0)
[2019-05-22 12:12] LABS: ALBUMIN 3.3 g/dL (3.4-5.0); ALBUMIN/GLOBULIN RATIO 0.6 (1.0-1.7); CALCIUM 9.5 mg/dL (8.5-10.1); GFR 71.6; POTASSIUM 3.6 mmol/L (3.5-5.1); TOTAL BILIRUBIN 0.3 mg/dL (0.2-1.0); TOTAL PROTEIN 8.9 g/dL (6.4-8.2)
[2019-05-22 12:14] LABS: BARBITURATES NEG (NEG); BENZODIAZEPINES NEG (NEG); CANNABINOIDS NEG (NEG); COCAINE NEG (NEG); METHADONE NEG (NEG); OPIATES NEG (NEG); PHENCYCLIDINE NEG (NEG)
[2019-05-22 12:15] LABS: AMPHETAMINE/METHAMPHETAMINE NEG (NEG)
== END | disposition home or self-care (01) ==
LOC: LAB 11:09
PROVIDERS: ATTEND Psychiatry & Neurology Neurology
DX: R51 Headache (principal)
CPT/HCPCS: 36415; 80053; 80307; 84443; 85025; 85651

== ENCOUNTER 2019-05-27 11:20 | Emergency (ER) | payer MEDICAID ==
[~2019-05-27] VITALS: Ht 162.6 cm; Wt 80.3 kg
[~2019-05-27 11:20] MED LIST changes: -POTA20TA82 PO
[2019-05-27] MEDS ORDERED: BUTALB/APAP/CAFEIN 50/325/40MG TABLET. PO STA (11:40)
--- NOTE | 2019-05-27 11:45 | PHYS DOC ---
Past Medical History Past Medical History: Asthma, COPD, Diabetes-Type II, Hypertension Additional Past Medical Histor: Lupus Past Surgical History: Appendectomy, Hysterectomy, Other Additional Past Surgical Histo: BACK SURGERY Alcohol Use: Rarely Drug Use: Cocaine Adult General Chief Complaint Chief Complaint: HEADACHE HPI HPI Patient is a 49 year old female who presents with a headache this been ongoing since 1986. The patient states that the headache is not gotten worse, the headache has not changed. She states that she was put on a medicine to try by an unknown Dr. he works at this facility. She states that the medicine is not working to his usual tried different medicine. The patient never been to see a neurologist. Denies any other symptoms. Review of Systems Review of Systems Constitutional: Denies fever or chills [] Eyes: Denies change in visual acuity, redness, or eye pain [] HENT: Denies nasal congestion or sore throat [] Respiratory: Denies cough or shortness of breath [] Cardiovascular: No additional information not addressed in HPI [] GI: Denies abdominal pain, nausea, vomiting, bloody stools or diarrhea [] : Denies dysuria or hematuria [] Musculoskeletal: Denies back pain or joint pain [] Integument: Denies rash or skin lesions [] Neurologic: Reports headache, Denies focal weakness or sensory changes [] Endocrine: Denies polyuria or polydipsia [] Complete systems were reviewed and found to be within normal limits, except as documented in this note. Allergies Allergies Allergies Coded Allergies Type Severity Reaction Last Updated Verified lisinopril Allergy Intermediate COUGH 01/07/19 Yes I S O L A T I O N *CONTACT* Allergy Unknown 01/07/19 Yes Physical Exam Physical Exam Constitutional: Well developed, well nourished, no acute distress, non-toxic appearance. [] HENT: Normocephalic, atraumatic, bilateral external ears normal, oropharynx moist, no oral exudates, nose normal. [] Eyes: PERRLA, EOMI, conjunctiva normal, no discharge. [] Neck: Normal range of motion, no tenderness, supple, no stridor. [] Skin: Warm, dry, no erythema, no rash. [] Back: No tenderness, no CVA tenderness. [] Extremities: No tenderness, no cyanosis, no clubbing, ROM intact, no edema. [] Neurologic: Alert and oriented X 3, normal motor function, normal sensory function, no focal deficits noted. [] Psychologic: Affect normal, judgement normal, mood normal. [] EKG EKG [] Radiology/Procedures Radiology/Procedures [] Course & Med Decision Making Course & Med Decision Making Pertinent Labs and Imaging studies reviewed. (See chart for details) Will refer to Neurologist and give Fioricet. Will D/c home with return precautions. Dragon Disclaimer Dragon Disclaimer This electronic medical record was generated, in whole or in part, using a voice recognition dictation system. Departure Departure Impression: Primary Impression: Headache Disposition: HOME, SELF-CARE Condition: STABLE Referrals: Brenie ANTHONY MD (PCP) JUSTINA YAÑEZ MD Patient Instructions: General Headache Without Cause Additional Instructions: Thank you for visiting [facility]. We appreciate you trusting us with your care. If any additional problems come up don't hesitate to return to visit us. Please follow up with your primary care provider so they can plan additional care if needed and know about the problem that you had. If symptoms worsen come back to the Emergency Department. Any concerning symptoms that start such as chest pain, shortness of air, weakness or numbness on one side of the body, running high fevers or any other concerning symptoms return to the ER. Please follow up with a neurologist for further care. Problem Qualifiers Primary Impression: Headache Headache type: unspecified Headache chronicity pattern: unspecified pattern Intractability: not intractable Qualified Codes: R51 - Headache KELLEN PIRES SHARONDA May 27, 2019 11:45
[2019-05-27 12:03] VITALS: BP 124/79
== END 2019-05-27 12:06 | disposition home or self-care (01) ==
LOC: ER 11:20
DX: R51 Headache (principal); J44.9 Chronic obstructive pulmonary disease, unspecified; E11.9 Type 2 diabetes mellitus without complications; I10 Essential (primary) hypertension; Z91.041 Radiographic dye allergy status; Z88.8 Allergy status to other drugs, medicaments and biological substances
CPT/HCPCS: 99282; 99285-25

== ENCOUNTER 2019-06-03 07:47 | Emergency (ER) | payer MEDICAID ==
[~2019-06-03] VITALS: Ht 162.6 cm; Wt 80.3 kg
[2019-06-03 08:14] VITALS: BP 159/97
--- NOTE | 2019-06-03 08:22 | PHYS DOC ---
Past Medical History Past Medical History: Asthma, COPD, Diabetes-Type II, High Cholesterol, H ypertension Additional Past Medical Histor: Lupus Past Surgical History: Appendectomy, Hysterectomy, Other Additional Past Surgical Histo: BACK SURGERY Smokin Pack Per Day Alcohol Use: Rarely Drug Use: Cocaine Adult General Chief Complaint Chief Complaint: SHORTNESS OF BREATH [facility] HPI Patient is a 49 year old female patient with history of hypertension, dyslipidemia, diabetes mellitus, COPD and asthma and currently smoking one pack a cigarettes a day who presents with complaint of shortness of breath. Patient complaining of intermittent episodes of shortness of breath for the last 3 days that usually happen with activity or supine position and associated with nonproductive cough and nasal congestion without fever and chills, chest pain, headache and neck pain, vomiting, earache, sore throat, sick contact. Patient complaining of episodes of nausea during cough. Patient states she took her home nebulizer and inhaler without improvement of her shortness of breath. Review of Systems Review of Systems Constitutional: Denies fever or chills [] Eyes: Denies change in visual acuity, redness, or eye pain [] HENT: Denies earache or sore throat [] Respiratory: Reports cough and shortness of breath Cardiovascular: No additional information not addressed in HPI [] GI: Denies abdominal pain, vomiting, bloody stools or diarrhea [] : Denies dysuria or hematuria [] Musculoskeletal: Denies back pain or joint pain [] Integument: Denies rash or skin lesions [] Neurologic: Denies headache, focal weakness or sensory changes [] Endocrine: Denies polyuria or polydipsia [] All other systems were reviewed and found to be within normal limits, except as documented in this note. Current Medications Current Medications Current Medications Medications (Trade) Dose Ordered Sig/Nona Start Time Stop Time Status Last Admin Dose Admin Albuterol/ Ipratropium (Duoneb) 3 ml 1X ONCE 06/03/19 08:30 06/03/19 08:31 DC 06/03/19 08:20 3 ML Prednisone (Prednisone) 60 mg 1X ONCE 06/03/19 08:30 06/03/19 08:31 DC 06/03/19 08:30 60 MG Allergies Allergies Allergies Coded Allergies Type Severity Reaction Last Updated Verified lisinopril Allergy Intermediate COUGH 01/07/19 Yes I S O L A T I O N *CONTACT* Allergy Unknown 01/07/19 Yes Physical Exam Physical Exam Constitutional: Well developed, well nourished, mild distress, non-toxic appearance, O2 sat of 98% at room air. [] HENT: Normocephalic, atraumatic, bilateral external ears normal, oropharynx moist, no oral exudates, nose normal. [] Eyes: PERRLA, EOMI, conjunctiva normal, no discharge. [] Neck: Normal range of motion, no tenderness, supple, no stridor. [] Cardiovascular:Heart rate regular rhythm, no murmur [] Lungs & Thorax: Decrease of bilateral air movement, no rhonchi or respiratory distress Abdomen: Bowel sounds normal, soft, no tenderness, no masses, no pulsatile masses. [] Skin: Warm, dry, no erythema, no rash. [] Back: No tenderness, no CVA tenderness. [] Extremities: No tenderness, no cyanosis, no clubbing, ROM intact, no edema. [] Neurologic: Alert and oriented X 3, normal motor function, normal sensory function, no focal deficits noted. [] Psychologic: Affect normal, judgement normal, mood normal. [] Current Patient Data Vital Signs Vital Signs Date Time Temp Pulse Resp B/P (MAP) Pulse Ox O2 Delivery O2 Flow Rate FiO2 06/03/19 08:21 95 Room Air 06/03/19 08:14 98.6 94 20 159/97 (117) 98.6 EKG EKG [] Radiology/Procedures Radiology/Procedures [][facility] [address] [place], [place] [id number] IMAGING REPORT Signed PATIENT: CALDERON YAP ACCOUNT: [id number] : 1970 LOCATION: ER AGE: 49 SEX: F EXAM STATUS: REG ER ORD. PHYSICIAN: NANCY SMYTH MD REASON: shortness of breath PROCEDURE: CHEST PA & LATERAL Chest, PA and Lateral: Technique: PA and lateral views of the chest were obtained. History: Shortness of breath. Comparison: 05/07/2019. Findings: The heart and pulmonary vasculature appear within normal limits. The lungs are clear. The pleural margins are clear. Impression: No acute chest process is seen. Electronically signed by: Shimon Lujan MD (06/03/2019 8:51 AM) [id number] DICTATED and SIGNED BY: SHIMON LUJAN MD DATE: 06/03/19 0851 Course & Med Decision Making Course & Med Decision Making Pertinent Imaging studies reviewed. (See chart for details) Evaluation of patient in ER showed 49-year-old female patient with history of COPD and currently smoking one pack a day with complaining of shortness of breath and cough. Patient had stable vital signs and unremarkable chest x-ray. Patient treated with nebulizer treatment and oral prednisone in ER and felt better. Plan discharge patient home with diagnosis of COPD exacerbation. Dragon Disclaimer Dragon Disclaimer This electronic medical record was generated, in whole or in part, using a voice recognition dictation system. Departure Departure Impression: Primary Impression: COPD exacerbation Additional Impressions: Tobacco abuse Tobacco abuse counseling Disposition: HOME, SELF-CARE (at [phone]) Condition: IMPROVED Referrals: Bernie ANTHONY MD (PCP) Patient Instructions: Chronic Obstructive Pulmonary Disease Exacerbation, Smoking Cessation, Tips For Success Additional Instructions: Drink plenty of liquids Follow-up with your primary care physician in 3-5 days Return to ER if not getting better Scripts Benzonatate (TESSALON PERLE) 100 Mg Capsule 1 CAP PO TID for cough, #21 CAP Prov: NANCY SMYTH MD 06/03/19 Methylprednisolone (MEDROL) 4 Mg Tab.ds.pk 1 PKG PO UD for inflammation, #1 PKG Prov: NANCY SMYTH MD 06/03/19 Doxycycline Hyclate (DOXYCYCLINE HYCLATE) 100 Mg Capsule 1 CAP PO BID, #14 CAP Prov: NANCY SMYTH MD 06/03/19 Problem Qualifiers NANCY SMYTH MD Jun 03, 2019 08:22
[2019-06-03] MEDS ORDERED: IPRATRPIUM/ALBUTEROL 0.5/2.5MG 3 ML NEBU. NEB ONE (08:30)
[2019-06-03] MEDS ORDERED: predniSONE 20 MG TABLET PO ONE (08:30)
[2019-06-03] MEDS ORDERED: BENZ100C PO ×2 (08:49→08:50)
[2019-06-03] MEDS ORDERED: DOXY100C2 PO ×2 (08:49→08:50)
[2019-06-03] MEDS ORDERED: METH4TAB2 PO ×2 (08:49→08:50)
--- NOTE | 2019-06-03 08:54 | RAD ---
Chest, PA and Lateral: Technique: PA and lateral views of the chest were obtained. History: Shortness of breath. Comparison: 05/07/2019. Findings: The heart and pulmonary vasculature appear within normal limits. The lungs are clear. The pleural margins are clear. Impression: No acute chest process is seen. Electronically signed by: Shimon Lujan MD (06/03/2019 8:51 AM) [id number]
== END 2019-06-03 09:12 | disposition home or self-care (01) ==
LOC: ER 07:47
DX: J44.1 Chronic obstructive pulmonary disease with (acute) exacerbation (principal); Z72.0 Tobacco use; Z71.6 Tobacco abuse counseling; E11.9 Type 2 diabetes mellitus without complications; J45.909 Unspecified asthma, uncomplicated; E78.00 Pure hypercholesterolemia, unspecified; I10 Essential (primary) hypertension; Z90.89 Acquired absence of other organs; Z90.49 Acquired absence of other specified parts of digestive tract; Z98.890 Other specified postprocedural states; Z91.041 Radiographic dye allergy status; Z88.8 Allergy status to other drugs, medicaments and biological substances
CPT/HCPCS: 71046; 94640; 99284; J7512; J7620; 99283

== ENCOUNTER → 2019-07-31 | Outpatient (CLI) | payer MEDICAID ==
[2019-07-29 15:00] VITALS: BP 111/64
[~2019-07-31] MED LIST changes: +ALLO300T PO; -CETI10TA22 PO; +CETI10TA24 PO; +CLON0.1T12 PO; +DOXY100C2 PO; +LINE600T12 PO; +MELA10TA10 SL; +METH4TAB2 PO; +OLME1TAB35 PO; +REGADENOSON 0.4 MG/5 ML DISP.SYRIN. IV ONE; +VENL75TA PO
--- NOTE | 2019-07-31 13:38 | RAD ---
MR#: [id number] Date of Study: 07/31/2019 Ordering Physician: DULCE COOPER, Referring Physician: QUINN DIXON Tech: RT Kimani De La Torre) (N) APPROVED REPORT Test Type: Pharmacological Stress Nurse/Tech: Catracho Da Silva RN Test Indications: chest pain Cardiac History: COPD, HTN, x-smoker, CVA Medications: See Electronic Medical Record Medical History: See Electronic Medical Record Resting ECG: sinus tachycardia Resting Heart Rate: 102 bpm Resting Blood Pressure: 142/85mmHg Pretest Chest Pain: None Nurse/Tech Notes lungs CTA, S1S2 Consent: The procedure was explained to the patient in lay terms. Informed consent was witnessed. Shamir eout was entered into [employer]. History and Stress Test performed by RT Kimani De La Torre) (N) Pharm. Details Pharmacologic stress testing was performed using 0.4mg per 5ml of regadenoson given intravenously ove r 7-10 seconds. Stress Symptoms No chest pain or symptoms. POST EXERCISE Reason for Termination: Infusion complete Max HR: 123 bpm Max Blood Pressure: 147/87mmHg Blood Pressure response to exercise: Normal blood pressure response during stress. Heart Rate response to exercise: normal response Chest Pain: No. Arrhythmia: No. ST Change: No. INTERPRETATION Stress EKG Conclusion: Baseline EKG showed sinus rhythm. No ischemic changes at peak stress. No arr hythmias. Imaging Protocol IMAGE PROTOCOL: Rest Tc-99m/stress Tc-99m 1 day Rest: Stress: Viability: Radiopharm.Tc99m [id number] Sestamibi Dose10.4mCi 31.4mCi Duration 15min. 15min. Img Date 07/31/2019 07/31/2019 Inj-Img Calv95evl. 60min. Rest Admin Site:IV - Right HandAdministrator:RT Kimani De La Torre)(N) Stress Admin Site: IV - Right HandAdministrator: RT Kimani De La Torre)(N) STRESS DATA End Diast. Vol.63.0mlAv. Heart Axxa741.0bpm End Syst. Vol.14.0mlCO Index BSA0.0L/min Myocardial Lqdt757.0gEject. Eatmhkay69.0% Stress Rates Pk. Fill Rate6.46EDV/secLVtime Pk. Fill 128.11msec Pk. Empty Rate7.69ESV/secLVtime Pk. Eject93.45msec 1/3 Pk. Fill1.20EDV/sec Stress Scores Regional WT1.00Summed WT9.00 Regional WM0.00Summed WM1.00 Study quality was good. Left Ventricular size was Normal at Rest and Stress. Lung uptake was . Left Ventricular ejection fraction is 77%. The rest and stress images show normal perfusion, normal contraction and thickening. LV Perf. Quant 17 Seg. SSS0.00 17 Seg. SRS0.00 17 Seg. SDS0.00 Stress Defect Extent (% LAD)0.00Rest Defect Extent (% LAD)0.00Rev. Defect Extent (% LAD)0.00 Stress Defect Extent (% LCX) 0.00Rest Defect Extent (% LCX)0.00Rev. Defect Extent (% LCX)0.00 Stress Defect Extent (% RCA)0.00Rest Defect Extent (% RCA)0.00Rev. Defect Extent (% RCA)0.00 Stress Defect Extent (% AVERY)0.00Rest Defect Extent (% AVERY)0.00Rev. Defect Extent (% AVERY)0.00 Conclusion 1. Regadenoson cardioisotope stress test did not show any evidence of ischemia or infarct. 2. Normal left ventricular systolic function with ejection fraction calculated at 77%. 3. Low risk for cardiac events. Signed by : Tuan Kiser, Electronically Approved : 07/31/2019 13:37:54
== END | disposition home or self-care (01) ==
LOC: NM 09:27
PROVIDERS: ATTEND Internal Medicine Cardiovascular Disease
DX: R00.0 Tachycardia, unspecified (principal); J44.9 Chronic obstructive pulmonary disease, unspecified; I10 Essential (primary) hypertension; Z87.891 Personal history of nicotine dependence; Z86.73 Personal history of transient ischemic attack (TIA), and cerebral infarction without residual deficits
CPT/HCPCS: 78452; 93017; A9500; J2785

== ENCOUNTER 2019-08-22 13:07 | Emergency (ER) | payer MEDICAID ==
[~2019-08-22] VITALS: Ht 162.6 cm; Wt 79.0 kg
[~2019-08-22 13:07] MED LIST changes: -REGADENOSON 0.4 MG/5 ML DISP.SYRIN. IV ONE
[2019-08-22 13:19] VITALS: BP 155/95
[2019-08-22] MEDS ORDERED: NYST15CR TP (13:41)
--- NOTE | 2019-08-22 13:42 | PHYS DOC ---
Past Medical History Past Medical History: Asthma, COPD, Diabetes-Type II, High Cholesterol, H ypertension, Migraines, Other Additional Past Medical Histor: Lupus Past Surgical History: Appendectomy, Hysterectomy, Other Additional Past Surgical Histo: BACK SURGERY Smoking Status: Current Some Day Smoker Alcohol Use: Rarely Drug Use: Cocaine, Marijuana Adult General Chief Complaint Chief Complaint: SKIN RASH/ABSCESS HPI HPI Patient is a 49 year old female with a history of diabetes type 2, hypertension, high cholesterol, asthma, who presents to the ED today complaining of a rash underneath her breast that began 2 weeks ago. Review of Systems Review of Systems Constitutional: Denies fever or chills [] Musculoskeletal: Denies back pain or joint pain [] Integument: Reports rash underneath her breast Neurologic: Denies headache, focal weakness or sensory changes [] All other systems were reviewed and found to be within normal limits, except as documented in this note. Allergies Allergies Allergies Coded Allergies Type Severity Reaction Last Updated Verified lisinopril Allergy Intermediate COUGH 01/07/19 Yes I S O L A T I O N *CONTACT* Allergy Unknown 01/07/19 Yes Physical Exam Physical Exam Constitutional: Well developed, well nourished, no acute distress, non-toxic appearance. [] Skin: Pendulous breasts, nonerythematous fungal type of rash noted underneath the breast and abdominal pannus Back: No tenderness, no CVA tenderness. [] Extremities: No tenderness, no cyanosis, no clubbing, ROM intact, no edema. [] Neurologic: Alert and oriented X 3, normal motor function, normal sensory function, no focal deficits noted. [] Psychologic: Affect normal, judgement normal, mood normal. [] Current Patient Data Vital Signs Vital Signs Date Time Temp Pulse Resp B/P (MAP) Pulse Ox O2 Delivery O2 Flow Rate FiO2 08/22/19 13:19 98.3 111 16 155/95 (115) 100 Room Air 98.3 EKG EKG [] Radiology/Procedures Radiology/Procedures [] Course & Med Decision Making Course & Med Decision Making Pertinent Labs and Imaging studies reviewed. (See chart for details) This is a 49-year-old female patient with cutaneous candidiasis. Has history of diabetes. Will be discharged with nystatin. Follow-up with PCP in 1-2 weeks. Dragon Disclaimer Dragon Disclaimer This electronic medical record was generated, in whole or in part, using a voice recognition dictation system. Departure Departure Impression: Primary Impression: Cutaneous candidiasis Disposition: 01 HOME, SELF-CARE Condition: STABLE Referrals: NO PCP (PCP) follow up in 1-2 weeks Patient Instructions: Cutaneous Candidiasis Additional Instructions: You were seen in the emergency room for a rash consistent with fungal infection. Use the prescribed antifungal as ordered. Try to keep the skin underneath your breast as well as abdominal region clean and dry. Scripts Nystatin (NYSTATIN) 15 Gm Cream..g. 1 ERICH TP TID, #30 GM Prov: BRIAN MCCRAY APRN 08/22/19 BRIAN MCCRAY APRN Aug 22, 2019 13:42
== END 2019-08-22 13:49 | disposition home or self-care (01) ==
LOC: ER 13:07
DX: B37.2 Candidiasis of skin and nail (principal); E11.9 Type 2 diabetes mellitus without complications; I10 Essential (primary) hypertension; E78.00 Pure hypercholesterolemia, unspecified; J44.9 Chronic obstructive pulmonary disease, unspecified; G43.909 Migraine, unspecified, not intractable, without status migrainosus; F17.210 Nicotine dependence, cigarettes, uncomplicated; Z88.8 Allergy status to other drugs, medicaments and biological substances; Z91.041 Radiographic dye allergy status
CPT/HCPCS: 99283

== ENCOUNTER 2019-08-28 20:45 | Emergency (ER) | payer MEDICAID ==
[~2019-08-28] VITALS: Ht 162.6 cm; Wt 77.2 kg
[~2019-08-28 20:45] MED LIST changes: +NYST15CR TP
[2019-08-28 21:14] VITALS: BP 154/91
--- NOTE | 2019-08-28 21:38 | PHYS DOC ---
Past Medical History Past Medical History: Asthma, COPD, Diabetes-Type II, High Cholesterol, H ypertension, Migraines, Other Additional Past Medical Histor: Lupus (NATIVIDAD HAWTHORNE APRN) Past Surgical History: Appendectomy, Hysterectomy, Other Additional Past Surgical Histo: BACK SURGERY (NATIVIDAD HAWTHORNE APRN) Smoking Status: Current Every Day Smoker Alcohol Use: Rarely Drug Use: Cocaine, Marijuana (NATIVIDAD HAWTHORNE APRN) Attending Signature I have participated in the care of this patient and I have reviewed and agree with all pertinent clinical information above including history, exam, and recommendations. (ROXANNE CRISTOBAL MD) Adult General Chief Complaint Chief Complaint: ITCHING HPI HPI Patient is a 49 year old female who presents with states she was here for a infection under her breasts and she finished using all the cream but she hasn't a rash all over her arms bilaterally and abdomen and back that is very itchy. She states she's been trying Benadryl at home and is not working. (NATIVIDAD HAWTHORNE APRN) Review of Systems Review of Systems Integument: rash or skin lesions [] All other systems were reviewed and found to be within normal limits, except as documented in this note. (NATIVIDAD HAWTHORNE APRN) Allergies Allergies Allergies Coded Allergies Type Severity Reaction Last Updated Verified lisinopril Allergy Intermediate COUGH 01/07/19 Yes I S O L A T I O N *CONTACT* Allergy Unknown 01/07/19 Yes (ROXANNE CRISTOBAL MD) Physical Exam Physical Exam Constitutional: Well developed, well nourished, no acute distress, non-toxic appearance. [] HENT: Normocephalic, atraumatic, bilateral external ears normal, oropharynx moist, no oral exudates, nose normal. [] Eyes: PERRLA, EOMI, conjunctiva normal, no discharge. [] Neck: Normal range of motion, no tenderness, supple, no stridor. [] Cardiovascular:Heart rate regular rhythm, no murmur [] Lungs & Thorax: Bilateral breath sounds clear to auscultation [] Abdomen: Bowel sounds normal, soft, no tenderness, no masses, no pulsatile masses. [] Skin: Warm, dry, no erythema, trunk, bilateral arms and back rash. [] Back: No tenderness, no CVA tenderness. [] Extremities: No tenderness, no cyanosis, no clubbing, ROM intact, no edema. [] Neurologic: Alert and oriented X 3, normal motor function, normal sensory function, no focal deficits noted. [] Psychologic: Affect normal, judgement normal, mood normal. [] (NATIVIDAD HAWTHORNE APRN) Current Patient Data Vital Signs Vital Signs Date Time Temp Pulse Resp B/P (MAP) Pulse Ox O2 Delivery O2 Flow Rate FiO2 08/28/19 21:14 98.2 110 20 154/91 (112) 99 Room Air 98.2 (ROXANNE CRISTOBAL MD) EKG EKG [] (NATIVIDAD HAWTHORNE APRN) Radiology/Procedures Radiology/Procedures [] (NATIVIDAD HAWTHORNE APRN) Course & Med Decision Making Course & Med Decision Making Pertinent Labs and Imaging studies reviewed. (See chart for details) Patient has small papular rash all over arms, trunk and back. None of which are draining or have signs of infection. Patient states that the only new thing she has been using was the nystatin cream. Denies new soaps, perfumes, lotions or detergents. Lungs are clear to auscultation. no rash or swelling to her face or orally. Denies chest pain, soa, wheezing, throat tightness, fever, nausea, vomiting. Speaks in full clear sentences. Ambulatory with steady gait. Patient is told to continue taking benadryl every 6 hours and to take the medrol dose pack I am prescribing for her. She is to follow up with primary care provider. [] (NATIVIDAD HAWTHORNE APRN) Dragon Disclaimer Dragon Disclaimer This electronic medical record was generated, in whole or in part, using a voice recognition dictation system. (NATIVIDAD HAWTHORNE APRN) Departure Departure Impression: Primary Impression: Rash and nonspecific skin eruption Disposition: 01 HOME, SELF-CARE Condition: STABLE Referrals: NO PCP (PCP) Patient Instructions: Rash, [id number] Additional Instructions: Follow-up with primary care provider. Take Benadryl every 6 hours. Take medication with food and as prescribed. Scripts Methylprednisolone (MEDROL) 4 Mg Tab.ds.pk 1 PKG PO UD, #1 PKG Prov: NATIVIDAD HAWTHORNE APRN 08/28/19 NATIVIDAD HAWTHORNE APRN Aug 28, 2019 21:37 ROXANNE CRISTOBAL MD Aug 29, 2019 01:23
[2019-08-28] MEDS ORDERED: METH4TAB2 PO (21:52)
== END 2019-08-28 21:57 | disposition home or self-care (01) ==
LOC: ER 20:45
DX: R21 Rash and other nonspecific skin eruption (principal); L29.9 Pruritus, unspecified; J44.9 Chronic obstructive pulmonary disease, unspecified; E11.9 Type 2 diabetes mellitus without complications; E78.00 Pure hypercholesterolemia, unspecified; I10 Essential (primary) hypertension; G43.909 Migraine, unspecified, not intractable, without status migrainosus; F14.90 Cocaine use, unspecified, uncomplicated; F12.90 Cannabis use, unspecified, uncomplicated; F17.200 Nicotine dependence, unspecified, uncomplicated; Z90.89 Acquired absence of other organs; Z90.710 Acquired absence of both cervix and uterus; Z98.890 Other specified postprocedural states; Z88.8 Allergy status to other drugs, medicaments and biological substances
CPT/HCPCS: 99283